=== PATIENT | female | born 2000 | race Caucasian/White ===

== ENCOUNTER 2022-10-14 09:02 | Outpatient (OUT) | payer BC, OTHER, SELFPAY ==
--- NOTE | 2022-10-14 09:05 | US_ITS ---
[address] [address] Patient Name: HESHAM TAYLOR MRN: [id number] date: 2000 Sex: F Assigned Patient Location: US Current Patient Location: LAB Accession/Order Number: [id number] Exam Date: 10/14/2022 09:05 Report Date: 10/14/2022 16:53 At the request of: REBECA PACE Procedure: US OB transvaginal EXAMINATION: US OB transvaginal HISTORY: MISSED PERIOD COMPARISON: No relevant comparison available. FINDINGS: Alanis intrauterine gestation Gestational sac: 3.7 cm, 8 weeks 6 days CRL: 3.7 cm, 10 weeks 4 days Yolk sac: 3.7 mm Heart rate: 174 bpm Cervix: Closed, 4.2 cm The uterus is normal, anteverted, anteflexed The ovaries are normal Clinical age: 9 weeks 5 days Clinical RAY: 05/14/2023 Ultrasound age: 10 weeks 4 days Ultrasound RAY: 05/08/2023 IMPRESSION: Viable alanis intrauterine gestation measuring 10 weeks 4 days Electronically authenticated by: STU DE SOUZA Date: 10/14/2022 16:53
== END 2022-10-14 09:03 | disposition home or self-care (01) ==
LOC: US 09:03
PROVIDERS: Visit Provider Obstetrics & Gynecology
DX: O26.91 Pregnancy related conditions, unspecified, first trimester (principal); Z3A.10 10 weeks gestation of pregnancy
CPT/HCPCS: 36415; 76817; 83036; 84443; 85025; 86592; 86762; 86803; 86850; 86900; 86901; 87086; 87340; 87389

== ENCOUNTER 2022-10-14 10:16 | Outpatient (OUT) | payer BC, SELFPAY ==
[2022-10-14 11:08] LABS: Basophils Percent Auto 0.4 % (0.2-2.0); Eosinophils Percent Auto 0.4 % (0.9-7.0); Hematocrit 36.5 % (36.0-48.0); Immature Granulocytes Abs Auto 0.02 10^3/uL (0.00-0.03); Immature Granulocytes Pct Auto 0.2 % (0.0-0.5); Lymphocytes Absolute Auto 1.7 10^3/uL (1.2-3.8); Lymphocytes Percent Auto 20.9 % (20.5-60.0); Mean Corpuscular HGB Conc 32.9 g/dL (29.9-35.2); Mean Corpuscular Hemoglobin 30.1 pg (26.7-34.0); Mean Corpuscular Volume 91.5 fL (81.0-99.0); Mean Platelet Volume 10.4 fL (9.5-13.5); Monocytes Absolute Auto 0.4 10^3/uL (0.3-0.8); Monocytes Percent Auto 5.3 % (1.7-12.0); Neutrophils Absolute Auto 6.1 10^3/uL (1.4-6.5); Neutrophils Percent Auto 72.8 % (43.0-75.0); Platelet Count 242 10^3/uL (150-450); Red Blood Count 3.99 10^6/uL (4.20-5.40); Red Cell Distribution Width 12.9 % (11.0-15.0); White Blood Count 8.3 10^3/uL (4.0-11.0)
[2022-10-14 11:15] LABS: Estimated Average Glucose 77 mg/dL; Glycohemoglobin A1C 4.3 % (4.5-6.2)
[2022-10-14 12:06] LABS: Thyroid Stimulating Hormone 0.743 uIU/mL (0.358-3.740)
[2022-10-14 13:28] LABS: BOX Test Sent Out YES
[2022-10-15 05:07] LABS: HCV Ab Non Reactive (Non Reactive); HIV Ab/p24 Ag Screen Non Reactive (Non Reactive); Rubella Antibodies, IgG 3.01 index (Immune >0.99)
[2022-10-15 06:08] LABS: HBsAg Screen Negative (Negative)
[2022-10-15 10:08] LABS: Rapid Plasma Reagin, Quant Non Reactive (NonRea<1:1)
== END 2022-10-14 10:17 | disposition home or self-care (01) ==
LOC: LAB 10:23
PROVIDERS: Visit Provider Obstetrics & Gynecology
DX: Z34.80 Encounter for supervision of other normal pregnancy, unspecified trimester (principal)
CPT/HCPCS: 36415; 83036; 84443; 85025; 86592; 86762; 86803; 86850; 86900; 86901; 87086; 87340; 87389

== ENCOUNTER 2022-11-09 18:43 | Outpatient (REF) | payer BC, SELFPAY ==
[2022-11-14 17:07] LABS: Age Gdln ACOG Testing Note (.); IGP, rfx Aptima HPV ASCU Note (.)
== END 2022-11-09 18:44 | disposition home or self-care (01) ==
LOC: LAB 18:43
PROVIDERS: Visit Provider Obstetrics & Gynecology
DX: Z01.419 Encounter for gynecological examination (general) (routine) without abnormal findings (principal)
CPT/HCPCS: G0145

== ENCOUNTER 2022-12-16 15:35 | Outpatient (OUT) | payer BC, SELFPAY ==
[2022-12-22 00:06] LABS: Gestat. Age Based On As provided (.); Maternal Age At EDD 22.8 yr (.); Results Report (.)
[2022-12-22 00:07] LABS: AFP Value 42.7 ng/mL (.); Insulin Dep Diabetes No (.); OSBR Risk 1 IN See interpretation. (.)
== END 2022-12-16 15:36 | disposition home or self-care (01) ==
LOC: LAB 15:39
PROVIDERS: Visit Provider Obstetrics & Gynecology
DX: Z34.92 Encounter for supervision of normal pregnancy, unspecified, second trimester (principal)
CPT/HCPCS: 36415; 82105

== ENCOUNTER 2022-12-30 07:45 | Outpatient (OUT) | payer BC, SELFPAY ==
--- NOTE | 2022-12-30 07:52 | US_ITS ---
[address] [address] Patient Name: HESHAM TAYLOR MRN: [id number] date: 2000 Sex: F Assigned Patient Location: US Current Patient Location: US Accession/Order Number: [id number] Exam Date: 12/30/2022 07:55 Report Date: 12/30/2022 17:41 At the request of: LORETTA ROMAN Procedure: US OB anatomy EXAMINATION: US OB anatomy, US OB transvaginal HISTORY: Second Trimester Z34.92 COMPARISON: No relevant comparison available. TECHNIQUE: Transabdominal sonographic examination was performed for obstetrical and evaluation. FINDINGS: Number: 1 Heart Rate: 158.8 bpm H.B. /min Amniotic Fluid Volume: Subjectively normal position: Cephalic presentation, longitudinal lie Placental Location: POSTERIOR , grade 0. The placenta covers the internal os Cervix Length: 4.8 cm , closed Normal anatomy: Lateral ventricles, cerebellum, posterior fossa, orbits, four-chamber heart, RVOT, diaphragm, stomach, kidneys, abdominal cord insertion, bladder, umbilical arteries, three-vessel cord, spine, extremities Nonvisualization: Nose, lips, LVOT BIOMETRY: BPD: 4.4 cm 19 weeks 3 days , less than 3% HC: 18.1 cm 20 weeks 4 days, 7% AC: 17.4 cm 22 weeks 3 days, 69% FL: 3.6 cm 21 weeks 2 days, 30% EFW:438.5 grams; 15 ounces, 47% FL/AC: 20.4 FL/BPD: 80.4 HC/AC: 1.0 GESTATIONAL AGE: Age by EDC: 21 weeks 4 days RAY by EDC: 05/08/2023 Age by current US: 21 weeks 0 days RAY by current US: 05/12/2023 US/US OB anatomy IMPRESSION: Complete placenta previa Nonvisualization of the nose, lips, LVOT BPD less than 3rd percentile *Reference: [facility] Practice Guideline for the performance of Obstetric Ultrasound Examinations, January 15, 2007. Electronically authenticated by: STU DE SOUZA Date: 12/30/2022 17:41
--- NOTE | 2022-12-30 07:52 | US_ITS ---
[address] [address] Patient Name: HESHAM TAYLOR MRN: [id number] date: 2000 Sex: F Assigned Patient Location: US Current Patient Location: US Accession/Order Number: [id number] Exam Date: 12/30/2022 07:55 Report Date: 12/30/2022 17:41 At the request of: LORETTA ROMAN Procedure: US OB transvaginal EXAMINATION: US OB anatomy, US OB transvaginal HISTORY: Second Trimester Z34.92 COMPARISON: No relevant comparison available. TECHNIQUE: Transabdominal sonographic examination was performed for obstetrical and evaluation. FINDINGS: Number: 1 Heart Rate: 158.8 bpm H.B. /min Amniotic Fluid Volume: Subjectively normal position: Cephalic presentation, longitudinal lie Placental Location: POSTERIOR , grade 0. The placenta covers the internal os Cervix Length: 4.8 cm , closed Normal anatomy: Lateral ventricles, cerebellum, posterior fossa, orbits, four-chamber heart, RVOT, diaphragm, stomach, kidneys, abdominal cord insertion, bladder, umbilical arteries, three-vessel cord, spine, extremities Nonvisualization: Nose, lips, LVOT BIOMETRY: BPD: 4.4 cm 19 weeks 3 days , less than 3% HC: 18.1 cm 20 weeks 4 days, 7% AC: 17.4 cm 22 weeks 3 days, 69% FL: 3.6 cm 21 weeks 2 days, 30% EFW:438.5 grams; 15 ounces, 47% FL/AC: 20.4 FL/BPD: 80.4 HC/AC: 1.0 GESTATIONAL AGE: Age by EDC: 21 weeks 4 days RAY by EDC: 05/08/2023 Age by current US: 21 weeks 0 days RAY by current US: 05/12/2023 US/US OB transvaginal IMPRESSION: Complete placenta previa Nonvisualization of the nose, lips, LVOT BPD less than 3rd percentile *Reference: [facility] Practice Guideline for the performance of Obstetric Ultrasound Examinations, January 15, 2007. Electronically authenticated by: STU DE SOUZA Date: 12/30/2022 17:41
== END 2022-12-30 07:46 | disposition home or self-care (01) ==
LOC: US 07:47
PROVIDERS: Visit Provider Physician Assistant
DX: O44.02 Complete placenta previa NOS or without hemorrhage, second trimester (principal); Z3A.21 21 weeks gestation of pregnancy
CPT/HCPCS: 76805; 76817

== ENCOUNTER 2023-01-28 10:48 | Outpatient (OUT) | payer BC, SELFPAY ==
[2023-01-28 12:20] LABS: Basophils Percent Auto 0.3 % (0.2-2.0); Eosinophils Percent Auto 0.3 % (0.9-7.0); Hematocrit 32.7 % (36.0-48.0); Hemoglobin 10.6 g/dL (12.0-16.0); Immature Granulocytes Abs Auto 0.04 10^3/uL (0.00-0.03); Immature Granulocytes Pct Auto 0.4 % (0.0-0.5); Lymphocytes Absolute Auto 1.6 10^3/uL (1.2-3.8); Mean Corpuscular HGB Conc 32.4 g/dL (29.9-35.2); Mean Corpuscular Hemoglobin 30.5 pg (26.7-34.0); Mean Corpuscular Volume 94.2 fL (81.0-99.0); Mean Platelet Volume 10.5 fL (9.5-13.5); Monocytes Absolute Auto 0.5 10^3/uL (0.3-0.8); Platelet Count 201 10^3/uL (150-450); Red Blood Count 3.47 10^6/uL (4.20-5.40); Red Cell Distribution Width 13.6 % (11.0-15.0); White Blood Count 9.1 10^3/uL (4.0-11.0)
[2023-01-28 13:30] LABS: Glucose 1 Hour 131 mg/dL
== END 2023-01-28 10:49 | disposition home or self-care (01) ==
PROVIDERS: Visit Provider Obstetrics & Gynecology
DX: Z34.92 Encounter for supervision of normal pregnancy, unspecified, second trimester (principal)
CPT/HCPCS: 36415; 82950; 85025

== ENCOUNTER 2023-04-12 20:36 | Outpatient (REF) | payer BC, SELFPAY | END 2023-04-12 20:37 | disposition home or self-care (01) | LOC: LAB 20:36 | PROVIDERS: Visit Provider Physician Assistant | DX: Z34.93 Encounter for supervision of normal pregnancy, unspecified, third trimester (principal) | CPT/HCPCS: 87081 ==

== ENCOUNTER 2023-04-19 06:59 | Outpatient (OUT) | payer BC, SELFPAY ==
--- OUTSIDE RECORDS SUMMARY | 2023-04-19 07:02 | XMS_ITS | CCD ---
Author Name Unknown Address [address] [place] [address] Organization [facility] Care Team Providers Care Orthopedic Surgeon Name Role Phone DR REBECA PACE Admitting Unavailable DR REBECA PACE Attending Unavailable MISC, DOCTOR Primary Care Unavailable DR REBECA PACE Consulting Unavailable Unavailable Primary Care Provider UnavailLORETTA Fabian Attending Unavailable REBECA PACE Attending Unavailable LORETTA ROMAN Attending Unavailable Medications Current Medications Medication Drug Class(es) Dates Sig (Normalized) Sig (Original) blood-glucose meter misc (1 source) Start: 04-12-2023 blood-glucose meter misc Check blood sugar 4-5 times daily, fasting and 1 hour after meals. Use as directed. Dispense per insurance preference. 1 each 0 04/12/2023 Active ferrous sulfate 134 mg oral tablet (1 source) ferrous sulfate (HIGH POTENCY IRON) 27 mg iron tablet Take by mouth. 0 Active [id number] 3 (DUET DHA WITH OMEGA-3) 25 mg iron-1 mg -400 mg combo pack (1 source) [id number] m3 (DUET DHA WITH OMEGA-3) 25 mg iron-1 mg -400 mg combo pack Take by mouth. 0 Active [id number]-zh 3 25 mg iron-1 mg -400 mg combo pack (1 source) [id number]-f m3 25 mg iron-1 mg -400 mg combo pack Take by mouth. 0 Active Problems Active Problems Problem Classification Problem Date Documented Date Episodic/Chronic Immunizations and screening for infectious disease (1 source) Encounter for screening for human papillomavirus (HPV); Translations: [ENC SCREENING HUMAN PAPILLOMAVIRUS] Onset: 02-27-2022 Episodic Other complications of (1 source) Maternal obesity complicating , childbirth and the puerperium, antepartum; Translations: [Obesity complicating , second trimester] Onset: 01-27-2023 01-27-2023 Chronic Other screening for suspected conditions (not mental disorders or infectious disease) (4 sources) Encounter for screening for malignant neoplasm of cervix; Translations: [ENC SCREENING MALIG NEOPLASM CERV] Onset: 02-24-2022 Episodic Polyhydramnios and other problems of amniotic cavity (1 source) Polyhydramnios; Translations: [Polyhydramnios, unspecified trimester, not applicable or unspecified] 04-12-2023 Episodic Residual codes; unclassified (1 source) Gestation period, 35 weeks; Translations: [35 weeks gestation of ] 04-12-2023 Episodic Umbilical cord complication (2 sources) Velamentous insertion of umbilical cord; Translations: [Velamentous insertion of umbilical cord, second trimester] Onset: 01-27-2023 Resolved: 04-12-2023 01-27-2023 Episodic Past or Other Problems Problem Classification Problem Date Documented Da te Episodic/Chronic Hemorrhage during ; abruptio placenta; placenta previa (1 source) Placenta previa; Translations: [Complete placenta previa NOS or without hemorrhage, second trimester] Onset: 01-27-2023 Resolved: 04-12-2023 04-12-2023 Episodic Mood disorders (1 source) Mood disorders Onset: 01-31-2021 01-31-2021 Results Test Name Value Interpretation Reference Range Facil ity PAP ACOG PANEL 2: 21 to 29on 03-04-2022 . . Normal [facility] Comment on above: Performed By: #### [id number] #### [facility] [address] [address] [address] Anthony Newton Age Gdln ACOG Testing 21-29 Normal [facility] Comment on above: Performed By: #### [id number] #### [facility] [address] [address] [address] Anthony Newton DIAGNOSIS: Comment [facility] Comment on above: Result Comment: NEGA TIVE FOR INTRAEPITHELIAL LESION OR MALIGNANCY. THIS SPECIMEN WAS RESCREENED PART OF OUR PRODUCTION WEIGHER PROGRAM. Performed By: #### [id number] #### [facility] [address] [address] [address] Anthony Newton Methodology: Comment Normal [facility] Comment on above: Result Comment: This liquid based ThinPrep(R) pap test was screened with the use of an image guided system. Performed By: #### [id number] #### [facility] [address] [address] [address] Anthony Newton Note: Comment Normal [facility] Comment on above: Result Comment: The Pap smear is a screening test designed to aid in the detection of premalignant and malignant conditions of the uterine cervix. It is not a diagnostic procedure and should not be used as the sole means of detecting cervical cancer. Both false-positive and false-negative reports do occur. . Performed By: #### [id number] #### [facility] [address] [address] [address] Anthony Newton Performed by: Comment Normal [facility] Comment on above: Result Comment: Lana Connell Hide Spreader Performed By: #### [id number] #### [facility] [address] [address] [address] Anthony Newton QC reviewed by: Comment Normal [facility] Comment on above: Result Comment: Shae Maria, Hide Spreader (ASCP) Performed By: #### [id number] #### [facility] [address] [address] [address] Anthony Newton Reflex Criteria: Comment Normal [facility] Comment on above: Result Comment: The HPV DNA reflex criteria were not met with this specimen result therefore, no HPV testing was performed. . Performed By: #### [id number] #### [facility] [address] [address] [address] Anthony Newton Specimen adequacy: Comment Normal [facility] Comment on above: Result Comment: Sati sfactory for evaluation. Endocervical and/or squamous metaplastic cells (endocervical component) are present. Performed By: #### 4 [id number] #### [facility] [address] [address] [address] Anthony Newton Lab - Toxicology Resultson 0 10-05-2018 Lab - Toxicology Results [id number] [facility] Outside Recordson 10-04-2018 Outside Records [id number] [facility] Triage Industrialon 10-05-19 Drug Screen Complete Collected [facility] Comment on above: Performed By: #### 1 [id number] #### [facility] (DEFAULT) [address] [place], [place] [id number] ED Clinical Summaryon 2018 ED Clinical Summary [facility] ? Urgent Care [address] [place] [id number] Clinical Summary PERSON INFORMATION Name: HESHAM NEELY PAYAL Age: 18 Years Sex: FEMALE : 00 MRN: Acct#: Visit Reason: Medical screening exam; PHYSICAL PRE EMPLOYMENT/ [employer] Arrival: 10/03/18 16:20:33 Discharge: 10/03/18 16:50:00 LOS: 000 00:30 Check In: 10/03/18 16:20:33 Checkout: 10/03/18 16:50:00 Address: [address] [place] [id number] PCP: PROVIDER INFORMATION Provider Role Assigned Unassigned Holden Gaitan PA-C ED PA 10/03/18 16:37:26 Sage RN, Larry ED Nurse 10/03/18 16:38:28 VITALS INFORMATION Vital Sign Triage Latest Temperature Tympanic Temperature Temporal Artery Pulse Rate 66 bpm 66 bpm O2 Sat 97 % 97 % Respiratory Rate 18 br/min 18 br/min Blood Pressure 110 mmHg/70 mmHg 110 mmHg/70 mmHg MEDICAL INFORMATION Medications Given: Allergy Information: No Known Medication Allergies PHYSICIAN DOCUMENTATION DISCHARGE INFORMATION: Discharge Disposition: Home Discharge Location: Home PATIENT EDUCATION INFORMATION Instructions: Follow-Up: DIAGNOSIS: Patient Understands: Comment: [facility] ED Patient Summaryon 019 ED Patient Summary [facility] ? Urgent Care [address] [place] [address] PATIENT DISCHARGE INSTRUCTIONS Patient Information Name: FLORINDA HESHAM MOE Age: 18 Years Date of : 00 Reason For Visit: Medical screening exam; PHYSICAL PRE EMPLOYMENT/ [employer] Arrival Time: 10/03/18 16:20:33 Primary Care Physician: Attending Physician: Paulino Padilla Comment: Patient Education Medication Information: The exam and treatment you received today in the [facility] Emergency Department were for an urgent problem and are not intended as complete care. It is important for you to follow up with a doctor, nurse practitioner, or physician?s assistant brand manager for ongoing care. If your symptoms become worse or you do not improve as expected and you are unable to reach your usual health care provider, you should return to the Emergency Department, we are available 24 hours a day. For those patients who have received Radiology results, the interpretation of your X-ray as given to you by our Emergency Department physician is only a preliminary report. The Radiologist will review your films and if there is a change in the diagnosis you will be notified by phone. Please make sure you have provided a working phone number so we can reach you if necessary. In the event that you had a lab culture while you were a patient in the Emergency Department, you will be notified by phone if there is a need to change your antibiotic. Please make sure you have provided a working phone number so we can reach you if necessary. [facility] Emergency Department has provided you with a complete list of medications post discharge. Please inform your jewel diameter gauger/provider of your visit and for further instruction on these medications. Any specific questions regarding your chronic medications and dosages should be discussed with your primary care physician(s) and/or pharmacist. Visit Information Visit Diagnosis: Diagnoses This Visit Medical screening exam ([id number]) If you received any narcotics, sedation, or any other medication that causes drowsiness for the next 24 hours, unless otherwise directed: ? Do not drive a car. ? Do not operate machinery such as power tools, lawn mowers, drills, sewing machines, or stoves ? Avoid alcoholic beverages and drugs for allergies, nerves, or sleep ? Do not make important personal or business decisions or sign any legal documents Reason for Visit: [place] physical Allergies: Substance Reaction Symptoms Type Comments No Known Medication Allergies Drug Vital Signs: Vitals and Measurements this Visit (last charted value for your 10/03/2018 visit) Vital Signs This Visit Temperature Temporal: 36.4 DegC Peripheral Pulse Rate: 66 bpm Respiratory Rate: 18 br/min Systolic Blood Pressure: 110 mmHg Diastolic Blood Pressure: 70 mmHg SpO2: 97 % Problems List: Problem Onset Comments No Problems found Major Tests and Procedures: The following procedures and tests were performed during your ED visit. Laboratory Radiology Cardiology Viruses or Bacteria What?s got you sick? Antibiotics only treat bacterial infections. Viral illnesses cannot be treated with antibiotics. When an antibiotic is not prescribed, ask your healthcare professional for tips on how to relieve symptoms and feel better. Usual Cause Illness Viruses Bacteria Antibiotic Needed Cold/Runny Nose NO Bronchitis/Chest Cold (in otherwise healthy children and adults) NO Whooping Cough Yes Flu NO Strep Throat Yes Sore Throat (except strep) NO Fluid in the middle ear (otitis media with effusion) NO Urinary Tract Infection Yes Antibiotics Aren?t Always the Answer www.cdc.gov/getsmart GET SMART Know When Antibiotics Work U.S. Department of Health and Human Services Centers for Disease Control and Prevention December 2013 [facility] Vital Signs Date Time Vital Sign Value Performing Clinician Faci jennifer 04-12-2023 15:05-0500 Body height 162.6 cm Daniella [facility]ina [facility] 04-12-2023 15:05-0500 Body mass index (BMI) [Ratio] 37.93 kg/m2 Daniella Reina MD Work Phone: [facility] 04-12-2023 15:05-0500 Body weight 100.25 kg Daniella Reina MD Work Phone: [facility] 04-12-2023 15:05-0500 Diastolic blood pressure 76 mm[Hg] Daniella [facility] 04-12-2023 15:05-0500 Heart rate 96 /min Daniella Reina MD Work Phone: [facility] 04-12-2023 15:05-0500 Systolic blood pressure 115 mm[Hg] Daniella Reina MD Work Phone: [facility] Encounters Encounter Date Encounter Type Care Provider Facility Start: 04-12-2023 End: 04-12-2023 Office outpatient visit 25 minutes Daniella Reina MD Work Phone: [facility] Comment on above: 35 weeks gestation o f (Primary Dx); Polyhydramnios affecting Start: 04-12-2023 End: 04-12-2023 ambulatory LORETTA ABEL Not Available Start: 03-30-2023 End: 03-30-2023 ambulatory LORETTA ROMAN Not Available Start: 03-16-2023 End: 03-16-2023 ambulatory REBECA PACE Not Available Start: 02-24-2022 End: 02-24-[address] REBECA PACE Facility: Procedures Date Procedure Procedure Detail Performing Clinician Start: 11-09-2022 Microscopic observat ion [Identifier] in Cervix by Cyto stain Daniella Reina MD Work Phone: Start: 01-31-2021 Adult depression scr eening assessment Daniella Reina MD Work Phone: Plan of Treatment Date Care Activity Detail Author Start: 12-19-2030 DTaP,Tdap and Td Vaccines (6 - Tdap) DTaP,Tdap and Td Vaccines (6 - Tdap) [facility] Start: 11-09-2025 Screening for malign ant neoplasm of cervix Pap Smear [facility] Start: 04-12-2024 Adult BMI Screening Adult BMI Screen ing [facility] Start: 04-12-2024 Tobacco Screening Tobacco Screening [facility] Start: 11-10-2023 Screening for Chlamy annabella trachomatis Chlamydia Screening [facility] Start: 12-16-2022 COVID-19 Vaccine ( season) COVID-19 Vaccine ( season) [facility] Start: 12-16-2022 Influenza vaccination Influenza Vacc ine [facility] Start: 01-31-2022 Depression Screening Depression Scre ening [facility] Start: 2018 Adult BMI Follow Up Plan Adult BMI Follow Up Plan [facility] Immunizations Immunization Date Immunization Notes Care Provider Fa cility 02-01-2021 influenza virus vacc ine, unspecified formulation Daniella Reina MD Work Phone: [facility] 12-19-2020 diphtheria, tetanus toxoids and pertussis vaccine Daniella Reina MD Work Phone: [facility] 10-29-2019 hepatitis B vaccine, pediatric or pediatric/adolescent dosage Daniella Reina MD Work Phone: [facility] 05-14-2019 hepatitis B vaccine, adult dosage Daniella Reina MD Work Phone: [facility] 04-11-2019 hepatitis B vaccine, pediatric or pediatric/adolescent dosage Daniella Reina MD Work Phone: [facility] 04-11-2019 measles, mumps, rube lla, and varicella virus vaccine Daniella Reina MD Work Phone: [facility] 11-09-2017 meningococcal oligosaccharide (groups A, C, Y and W-135) diphtheria toxoid conjugate vaccine (MCV4O) Daniella Reina MD Work Phone: [facility] 12-08-2004 diphtheria, tetanus toxoids and acellular pertussis vaccine Daniella Reina MD Work Phone: [facility] 12-08-2004 measles, mumps and rubella virus vaccine Daniella Reina MD Work Phone: [facility] 12-08-2004 poliovirus vaccine, inactivated Daniella Reina MD Work Phone: [facility] 09-28-2001 measles, mumps and rubella virus vaccine Daniella Reina MD Work Phone: [facility] Work Phone: 03-23-2001 diphtheria, tetanus toxoids and acellular pertussis vaccine, unspecified formulation Daniella Reina MD Work Phone: [facility] 03-23-2001 haemophilus influenz ae type b conjugate and Hepatitis B vaccine Daniella Reina MD Work Phone: [facility] 03-23-2001 poliovirus vaccine, inactivated Daniella Reina MD Work Phone: [facility] 01-12-2001 diphtheria, tetanus toxoids and acellular pertussis vaccine, unspecified formulation Daniella Reina MD Work Phone: [facility] 01-12-2001 haemophilus influenz ae type b vaccine, HbOC conjugate Daniella Reina MD Work Phone: [facility] 01-12-2001 poliovirus vaccine, inactivated Daniella Reina MD Work Phone: [facility] 2000 diphtheria, tetanus toxoids and acellular pertussis vaccine, unspecified formulation Daniella Reina MD Work Phone: [facility] 2000 haemophilus influenz ae type b conjugate and Hepatitis B vaccine Daniella Reina MD Work Phone: [facility] 2000 poliovirus vaccine, inactivated Daniella Reina MD Work Phone: [facility] 2000 hepatitis B vaccine, pediatric or pediatric/adolescent dosage Daniella Reina MD Work Phone: [facility] [employer] NEGATED: Highlighted row has not occurred!04-11-2019 influenza, injectable, quadrivalent, preservative free Daniella Reina MD Work Phone: [facility] Comment on above: Deferred: Patient de cision Payers Date Payer Category Payer Unknown SVITLANA REILLY SS (PPO) [id number] 2022-Present [phone] [address] [place] [address] [id number] 2022 Unknown [id number] 2000 Unknown [id number] 2000 Unknown [id number] 2000 Unknown [id number] 2000 Unknown [id number] 1959 Unknown [id number] Social History Date Type Detail Facility [facility]: [facility] Start: 04-12-2023 Tobacco use and exposure Smokeless tobacco non-user [facility] Start: 04-12-2023 Alcohol intake Lifetime non-d marlyn (finding) [facility] Start: 01-31-2021 End: 04-12-2023 History of Social function [facility] Start: 01-31-2021 End: 04-12-2023 Social connection and isolation panel [facility] Do you belong to any clubs or organizations such as catholic groups, unions, fraternal or athletic groups, or school groups? No [facility] Are you now , , , , never or living with a partner? Living with partner [facility] How often to you hav e a drink containing alcohol? 2-4 times a month [facility] How many standard drinks containing alcohol do you have on a typical day? 3 or 4 [facility] How often do you hav e 6 or more drinks on 1 occasion? Less than monthly [facility] How hard is it for y ou to pay for the very basics like food, housing, medical care, and heating Not very hard [facility] Adolescent depressio n screening assessment 6 [facility] Do you feel stress - tense, restless, nervous, or anxious, or unable to sleep at night because your mind is troubled all the time - these days [OSQ] Very much [facility] Start: 01-31-2021 Education 21 [facility] Start: 08-21-2022 [facility] Start: 2000 Sex Assigned At Female P [facility] Start: 01-24-2023 Gender identity Identifies as female gender (finding) [facility] Start: 01-24-2023 Sexual orientation Heterosexual (sara sanchez) [facility] NEGATED: Highlighted rowStart: NINF History of tobacco use Passive smoker [facility] Medical Equipment Procedure Code Equipment Code Equipment Origin al Text Equipment Identifier Dates Check blood suga r 4-5 times daily, fasting and 1 hour after meals. Use as directed. Dispense per insurance preference. [id number] Start: 04-12-2023 1 strip by miscellaneous route in the morning and 1 strip at noon and 1 strip in the evening and 1 strip before bedtime. Check blood sugar 4-5 times daily, fasting and 1 hour after meals. Use as directed. Dispense per insurance preference.. [id number] Start: 04-12-2023 History of Present illness Narrative 04-12-2023 Daphne Gerard RN - 04/12/2023 3:15 PM Cecilio Reina MD - 04/12/2023 3:15 PM EST Note Date & Type Note Facility 04-12-2023 History of Present illness Narrative Headache/epigastric pain/blurry vision/swelling? NO Cramping/contractions? NO Abnormal vaginal discharge? NO Spotting or vaginal bleeding? NO Loss of fluid like your water may have broken? NO Recent ER visits or hospitalizations? NO Any concerns that you would like me to mention to the provider today? NO REASON FOR OFFICE VISIT: Follow up placenta previa/low-lying placenta HISTORY OF PRESENT ILLNESS: Hesham Avalos is a pleasant 22 y.o. at 35w3d due on Estimated Date of Delivery: 05/14/23 . has been complicated by: Polyhydramnios, new finding Velamentous cord insertion Placenta previa, resolved Concern for vasa previa, now ruled out Obesity, BMI 38 Currently the patient has no complaints. The patient denies headaches, vision changes, nausea, vomiting, right upper quadrant/epigastric pain, SOB or chest pain. She denies contractions, vaginal. She reports good movement. GCT at 26wks 131 (reviewed on my chart/patient phone) Aneuploidy screening: low risk cell free DNA for chromosome 13,18,21 and sex chromosomes Patient Active Problem List Diagnosis Velamentous insertion of umbilical cord in second trimester Obesity affecting in second trimester OB History OB History Para Term AB Living 2 1 1 0 0 1 SAB IAB Ectopic Multiple Live Births 0 0 0 1 # Outcome Date GA Lbr Daniel/2nd Weight Sex Delivery Anes PTL Lv 2 Current 1 Term 12/17/20 39w1d 3.742 kg M Vag-Spont N ISABELLA Past Medical History: Diagnosis Date Low-lying placenta hemorrhage ALLERGIES: Allergies Allergen Reactions No Known Drug Allergies CURRENT MEDICATIONS: Current Outpatient Medications: [id number] (DUET DHA WITH OMEGA-3) 25 mg iron-1 mg -400 mg combo pack, Take by mouth., Disp: , Rfl: blood sugar diagnostic strip, Check blood sugar 4-5 times daily, fasting and 1 hour after meals. Use as directed. Dispense per insurance preference., Disp: 200 strip, Rfl: 6 blood-glucose meter misc, Check blood sugar 4-5 times daily, fasting and 1 hour after meals. Use as directed. Dispense per insurance preference., Disp: 1 each, Rfl: 0 ferrous sulfate (HIGH POTENCY IRON) 27 mg iron tablet, Take by mouth. (Patient not taking: Reported on 04/12/2023), Disp: , Rfl: lancets 31 gauge misc, 1 strip by miscellaneous route in the morning and 1 strip at noon and 1 strip in the evening and 1 strip before bedtime. Check blood sugar 4-5 times daily, fasting and 1 hour after meals. Use as directed. Dispense per insurance preference.., Disp: 100 each, Rfl: 1 [id number]-vm2 25 mg iron-1 mg -400 mg combo pack, Take by mouth., Disp: , Rfl: REVIEW OF SYSTEMS: Head and Neck: Negative for any dizziness and headaches. Cardiovascular and Respiratory System: Denies any chest pain, shortness of breath, and coughing. Abdominal and System: Denies any abdominal pain, nausea, vomiting, vaginal bleeding, and vaginal discharge REVIEW OF ULTRASOUND. Abstract on 01/26/2023 Component Date Value Ref Range Status Syphilis 10/14/2022 negative Final Abo/Rh(D) 10/14/2022 A Positive Final Antibody Screen 10/14/2022 negative Final Chlamydia Dna(Pcr) 11/09/2022 negative Final Gonorrhoeae Dna(Pcr) 11/09/2022 negative Final HIV 1&2 AB/AG 10/14/2022 negative Final Hepatitis B Surface Antigen 10/14/2022 negative Final Rubella immune IgG 10/14/2022 immune Final HIV 1&2 AB/AG 10/14/2022 non reactive Final Pertinent Ultrasound findings are see report. PHYSICAL EXAMINATION: BP 115/76 Pulse 96 Ht 162.6 cm (5' 4 ) Wt 100.2 kg (221 lb) LMP 08/07/2022 BMI 37.93 kg/m . Well-appearing, no acute distress Normal gait well oriented in time place and person. Respirations not labored, speaking comfortably in complete sentences Gravid abdomen OVERALL ASSESMENT -Hesham Avalos is a pleasant 22 y.o. at 35w3d -Polyhydramnios, new finding -Velamentous cord insertion -Placenta previa, resolved -Concern for vasa previa, now ruled out -Obesity, BMI 38 Counseling Placenta previa, resolved Concern for vasa previa, now ruled out We reviewed the placenta previa has now resolved and placental edge is over 3 cm from internal cervical os. The risk for hemorrhage is that of any at this time. Attempted vaginal delivery is reasonable. Polyhydramnios, mild, new finding Abdominal circumference at 98% Concern for the development of gestational diabetes Polyhydramnios was noted on sonographic assessment today. The degree of polyhydramnios is frequently categorized as mild, moderate, or severe, based on an ZEB of 24.0-29.9 cm, 30.0-34.9 cm, and >=35 cm, or a DVP of 8-11 cm, 12-15 cm, or >=16 cm, respectively. Using these definitions, she has mild polyhydramnios noted today and that accounts for approximately 65-70% of cases. The identification of polyhydramnios should prompt a search for an underlying etiology. The 2 most common causes of polyhydramnios are maternal diabetes mellitus and anomalies. Other less likely causes include chromosomal or genetic abnormalities and/or anatomic abnormalities that inhibit normal swallowing. She has had low risk cell free DNA. Given that patient has risk factors for gestational diabetes including failed glucose challenge test in prior and obesity, I am concerned that the most likely etiology of polyhydramnios is the development of gestational diabetes. Her last glucose challenge test was at 26 weeks on 01/28/2023 at 131. In addition abdominal circumference is measuring at 98th percentile, increasing suspicion for underlying gestational diabetes. Following discussion regarding repeat glucose challenge test versus 4 times daily fingerstick monitoring for week, patient opted for fingerstick monitoring. Supplies were ordered and logs provided. Patient will send in logs in 1 week. In addition, we discussed the increased risk for complications including premature labor, malpresentation, stillbirth, and hemorrhage. Even in the absence of diabetes, idiopathic polyhydramnios is associated with macrosomia in approximately 15-30% of cases, and affected patients are significantly more likely to undergo delivery. Progression of polyhydramnios is suggestive of an underlying structural or genetic etiology. Reports associating idiopathic polyhydramnios with mortality have been inconsistent and there are no data to suggest that surveillance improves outcomes and surveillance is not required for the sole indication of mild idiopathic polyhydramnios. Women with severe polyhydramnios should be delivered at a tertiary center due to the significant possibility that anomalies may be present. Summary of Recommendations: Patient is dated by an L=10 week ultrasound, RAY 05/14/2023. She is certain of her LMP, LMP is within 6 days of 10 week ultrasound, thus per ACOG RAY is based on LMP. Resolution of placenta previa, low-lying placenta Glucose logs and supplies provided for 4 times daily monitoring of fingersticks; concern for the development of gestational diabetes Repeat growth ultrasound in 3 weeks Anticipate vaginal delivery at local hospital with primary OB Delivery at term, >39 weeks gestation Has follow up with MFM via video visit in 2 weeks to review logs DISPOSITION: At this point the patient is in complete care of her integrated program teacher. Patient does have ultrasound and office visit scheduled with us. Thank you for allowing me to participate in the care of Hesham Avalos. If there any questions please do not hesitate to contact us. Daniella Reina MD Maternal- Medicine [facility] [address] [place] [address] [facility], the CDC, and other organizations representing maternal and public health professionals recommend that , , and lactating people and those considering receive the COVID-19 vaccination. Vaccination is the best method to reduce maternal and complications of SARS-CoV-2 infection. This document was created with [employer] technology. Though I make every effort to review the dictation as it is transcribed, on occasion the spoken word can be misinterpreted by the technology leading to inappropriate words, phrases, or sentences. This note is addressed to the requesting provider as a consultation for clinical guidance. Specific medical abbreviations are occasionally used and those are generally approved by the [place]?Board of?Obstetrics and?Gynecology?as well as?[employer] abbreviations. The above plan of care was based solely on the diagnoses for which a consultation was requested. ?More frequent testing may be indicated based on her other medical/obstetrical conditions. The management of other or medical conditions is beyond the scope of requested consultation and will continue to be followed by the primary integrated program teacher or primary care provider. Note to patient: The Cures Act makes medical notes like these available to patients in the interest of transparency. However, be advised this is a medical document. It is intended as peer to peer communication. It is written in medical language and may contain abbreviations or verbiage that are unfamiliar. It may appear blunt or direct. Medical documents are intended to carry relevant information, facts as evident, and the clinical opinion of the practitioner. documented in this encounter [facility] Evaluation note Note Date & Type Note Facility Evaluation note Diagnosis 35 weeks gestation of - Primary Polyhydramnios affecting documented in this encounter [facility] Instructions Note Date & Type Note Facility Instructions Not on filedocumented in this en counter [facility] Summary Purpose Family History No Family History Records FoundNo Family History Records FoundNo Family History Records Found Advance Directives No Advanced Directives Records FoundNo Advanced Directives Records FoundNo Advanced Directives Records Found Reason for Referral Specialty Diagnoses / Procedures Referred By Contac t Referred To Contact Daniella Reina MD [address] [place] [id number] Referral ID Status Reason Start Date Expiration Date V isits Requested Visits Authorized [id number] Pending Review 1 1 Referral ID Status Reason Start Date Expiration Date V isits Requested Visits Authorized [id number] Pending Review 1 1 Additional Source Comments INFORMATION SOURCE (unrecogn ized section and content) DATE CREATED AUTHOR 10/05/2018 [facility] DATE CREATED AUTHOR AUTHOR'S ORGANIZ ATION 04/13/2022 [facility] DATE CREATED AUTHOR AUTHOR'S ORGANIZ ATION 04/14/2023 [facility] EP[facility] Reason for Visit (unrecogniz ed section and content) Reason Comments POSTERIOR LOW LYING PLACENTA Resolved Polyhydramnios FOR RECORDS PERTAINING TO PATIENTS WHO ARE OR HAVE BEEN ENROLLED IN A CHEMICAL DEPENDENCY/SUBSTANCEABUSE PROGRAM, SOME INFORMATION MAY BE OMITTED. This clinical summary was aggregated from multiple sources. Caution should be exercised in using it in the provision of clinical care. This summary normalizes information from multiple sources, and as a consequence, information in this document may materially change the coding, format and clinical context of patient data. In addition, data may be omitted in some cases. CLINICAL DECISIONS SHOULD BE BASED ON THE PRIMARY CLINICAL RECORDS. [facility]. provides no warranty or guarantee of the accuracy or completeness of information in this document.
--- NOTE | 2023-04-19 08:56 | US_ITS ---
[address] [address] Patient Name: HESHAM TAYLOR MRN: [id number] date: 2000 Sex: F Assigned Patient Location: [facility] Current Patient Location: [facility] Accession/Order Number: [id number] Exam Date: 04/19/2023 09:00 Report Date: 04/19/2023 09:34 At the request of: REBECA PACE Procedure: US OB BPP w non-stress EXAMINATION: US OB BPP w non-stress HISTORY: lga COMPARISON: No relevant comparison available. TECHNIQUE: Ultrasound biophysical profile was performed in the radiology department. FINDINGS: BREATHING MOVEMENTS: 2.0 GROSS BODY MOVEMENTS: 2.0 TONE: 2.0 QUALITATIVE AMNIOTIC FLUID VOLUME: 2.0 PRESENTATION: CEPHALIC HEART RATE: 150.8 bpm H.B./min AMNIOTIC FLUID VOLUME: 16.0 cm cm GESTATIONAL AGE: 37 weeks 2 days CONCLUSION: Total biophysical profile score: 8.0 Electronically authenticated by: STU DE SOUZA Date: 04/19/2023 09:34
[2023-04-19 09:21] VITALS: BP 121/81; PULSE 78
== END 2023-04-19 10:14 | disposition home or self-care (01) ==
LOC: US 07:00 → FBC 08:46
PROVIDERS: Visit Provider Physician Assistant
DX: Z34.93 Encounter for supervision of normal pregnancy, unspecified, third trimester (principal); Z3A.37 37 weeks gestation of pregnancy
CPT/HCPCS: 76818

== ENCOUNTER 2023-04-22 07:35 | Outpatient (OUT) | payer BC, SELFPAY ==
--- OUTSIDE RECORDS SUMMARY | 2023-04-22 07:39 | XMS_ITS | CCD ---
Author Name Unknown Address [address] [place] [address] Organization [facility] Care Team Providers Care Copper Roller Handler Printing Name Role Phone DR REBECA PACE Admitting Unavailable DR REBECA PACE Attending Unavailable MISC, DR HENDERSON Primary Care Unavailable DR REBECA PACE Consulting Unavailable Unavailable Primary Care Provider UnavailLORETTA Fabian Attending Unavailable LORETTA ROMAN Attending Unavailable REBECA PACE Attending Unavailable LORETTA [...] iron tablet Take by mouth. 0 Active [id number]-oc 3 (DUET DHA WITH OMEGA-3) 25 mg iron-1 mg -400 mg combo pack (1 source) [id number]-fjaqz-o m3 (DUET DHA WITH OMEGA-3) 25 mg iron-1 mg -400 mg combo pack Take by mouth. 0 Active alq460-knal-ldxwm-uo 3 25 mg iron-1 mg -400 mg combo pack (1 source) [id number]-ycdz-rmhgw-q m3 25 mg iron-1 mg -400 mg [...] 21 to 29on 03-04-2022 . . Normal [facility] Comment on above: Performed By: #### [id number] #### [facility] [address] [address] [address] Anthony Newton Age Gdln ACOG Testing 21- Normal [facility] Comment on above: Performed By: #### [id number] #### [facility] [address] [address] [address] Anthony Newton DIAGNOSIS: Comment [facility] Comment on above: Result Comment: NEGA TIVE FOR INTRAEPITHELIAL LESION OR MALIGNANCY. THIS SPECIMEN WAS RESCREENED PART OF OUR CLAY DIGGER PROGRAM. Performed By: #### 4 [id number] #### [facility] [address] [place] [address] Dr. Anthony Newton Methodology: Comment Normal [facility] Comment on above: Result Comment: This liquid based ThinPrep(R) pap test was screened with the use of an image guided system. Performed By: #### 4 [id number] #### [facility] [address] [place] [address] Dr. Anthony Newton Note: Comment Normal [facility] Comment on above: Result Comment: The Pap smear is a screening test designed to aid in the detection of premalignant and malignant conditions of the uterine cervix. It is not a diagnostic procedure and should not be used as the sole means of detecting cervical cancer. Both false-positive and false-negative reports do occur. . Performed By: #### 4 [id number] #### [facility] [address] [place] [address] Dr. Anthony Newton Performed by: Comment Normal [facility] Comment on above: Result Comment: Lana Connell Pivot End Polisher Performed By: #### 4 [id number] #### [facility] [address] [place] [address] Dr. Anthony Newton QC reviewed by: Comment Normal [facility] Comment on above: Result Comment: Shae Maria, Pivot End Polisher (ASCP) Performed By: #### 4 [id number] #### [facility] [address] [place] [address] Dr. Anthony Newton Reflex Criteria: Comment Normal [facility] Comment on above: Result Comment: The HPV DNA reflex criteria were not met with this specimen result therefore, no HPV testing was performed. . Performed By: #### 4 [id number] #### [facility] [address] [place] [address] Dr. Anthony Newton Specimen adequacy: Comment Normal [facility] Comment on above: Result Comment: Sati sfactory for evaluation. Endocervical and/or squamous metaplastic cells (endocervical component) are present. Performed By: #### 4 [id number] #### [facility] [address] [place] [address] Dr. Anthony Newton Lab - Toxicology Resultson 0 10-05-2018 Lab - Toxicology Results [id number] [facility] 10-[facility]-2018 Outside Records [id number]#1.00 [facility] T[facility] Industrialon 10-05-19 Drug Screen Complete Collected [facility] Comment on above: Performed By: #### 1 [id number] #### [facility] (DEFAULT) [address] [place], [place] [id number] ED Clinical Summaryon 2018 ED Clinical Summary [facility] ? Urgent Care [address] [place], [place] [id number] Clinical Summary PERSON INFORMATION Name: FLORINDA, HESHAM MOE Age: 18 Years Sex: FEMALE : 00 MRN: Acct#: Visit Reason: Medical screening exam; PHYSICAL PRE EMPLOYMENT/ RIVERVIEW Arrival: 10/03/18 16:20:33 Discharge: 10/03/18 16:50:00 LOS: 000 00:30 Check In: 10/03/18 16:20:33 Checkout: 10/03/18 16:50:00 Address: [address] [place] [id number] PCP: PROVIDER INFORMATION Provider Role Assigned Unassigned Holden Gaitan PA-C ED PA 10/03/18 16:37:26 Larry Cazares RN ED Nurse 10/03/18 16:38:28 VITALS INFORMATION Vital [...] INFORMATION Instructions: Follow-Up: DIAGNOSIS: Patient Understands: Comment: [facility] ED Patient Summaryon 019 ED Patient Summary [facility] ? Urgent Care [address] [place] [address] [id number] PATIENT DISCHARGE INSTRUCTIONS Patient Information Name: FLORINDA, HESHAM PAYAL Age: 18 Years Date of : [birth year] [facility]: [id number] Reason For Visit: Medical screening exam; PHYSICAL PRE EMPLOYMENT/ RIVERVIEW Arrival Time: 10/03/18 16:20:33 Primary Care Physician: Attending Physician: Paulino Padilla Comment: Patient Education Medication Information: The exam and treatment you received today in the [facility] Emergency Department were for an urgent problem and are not intended as complete care. It is important for you to follow up with a doctor, nurse practitioner, or physician?s environmental emergencies assistant for ongoing care. If your symptoms become [...] so we can reach you if necessary. [facility] Emergency Department has provided you with a complete list of medications post discharge. Please inform your sign board erector/provider of your visit and for further instruction on these medications. Any specific questions regarding your chronic medications and dosages should be discussed with your primary care physician(s) and/or pharmacist. Visit Information Visit Diagnosis: Diagnoses This Visit Medical screening exam ([id number]) If you received any narcotics, sedation, or [...] sign any legal documents Reason for Visit: [place] physical Allergies: Substance Reaction Symptoms Type Comments [...] for Disease Control and Prevention December 2013 [facility] Vital Signs Date Time Vital Sign Value Performing Clinician Faci lity 04-12-2023 15:05-0500 Body height 162.6 cm Daniella Reina MD Work Phone: [facility] 04-12-2023 15:05-0500 Body mass index (BMI) [Ratio] 37.93 kg/m2 Daniella Reina MD Work Phone: [facility] 04-12-2023 15:05-0500 Body weight 100.25 kg Daniella Reina MD Work Phone: [facility] 04-12-2023 15:05-0500 Diastolic blood pressure 76 mm[Hg] Daniella Reina MD [facility] 04-12-2023 15:05-0500 Heart rate 96 /min Daniella Reina MD Work Phone: [facility] 04-12-2023 15:05-0500 Systolic blood pressure 115 mm[Hg] Daniella Reina MD Work Phone: [facility] Encounters Encounter Date Encounter Type Care Provider Facility Start: 04-18-2023 End: 04-18-2023 ambulatory LORETTA ROMAN Not Available Start: 04-12-2023 End: 04-12-2023 Office outpatient visit 25 minutes Daniella Reina MD Work Phone: [facility] Comment on above: 35 weeks gestation o f (Primary Dx); Polyhydramnios affecting Start: 04-12-2023 End: 04-12-2023 ambulatory LORETTA ROMAN Not Available Start: 03-30-2023 End: 03-30-2023 ambulatory LORETTA ABEL Not Available Start: 03-16-2023 End: 03-16-2023 ambulatory [...] DTaP,Tdap and Td Vaccines (6 - Tdap) [facility] Start: 11-09-2025 Screening for malign ant neoplasm of cervix Pap Smear [facility] Start: 04-12-2024 Adult BMI Screening Adult BMI Screen ing [facility] Start: 04-12-2024 Tobacco Screening Tobacco Screening [facility] Start: 11-10-2023 Screening for Chlamy annabella trachomatis Chlamydia Screening [facility] Start: 12-16-2022 COVID-19 Vaccine ( season) COVID-19 Vaccine ( season) [facility] Start: 12-16-2022 Influenza vaccination Influenza Vacc ine [facility] Start: 01-31-2022 Depression Screening Depression Scre ening [facility] Start: 2018 Adult BMI Follow Up Plan Adult BMI Follow Up Plan [facility] Immunizations Immunization Date Immunization Notes Care Provider Fa cility 02-01-2021 influenza virus vacc ine, unspecified formulation Daniella Reina MD Work Phone: [facility] 12-19-2020 diphtheria, tetanus toxoids and pertussis vaccine Daniella Reina MD Work Phone: [facility] 10-29-2019 hepatitis B vaccine, pediatric or pediatric/adolescent dosage Daniella Reina MD Work Phone: [facility] 05-14-2019 hepatitis B vaccine, adult dosage Daniella Reina MD Work Phone: [facility] 04-11-2019 hepatitis B vaccine, pediatric or pediatric/adolescent dosage Daniella Reina MD Work Phone: [facility] 04-11-2019 measles, mumps, rube lla, and varicella virus vaccine Daniella Reina MD Work Phone: [facility] 11-09-2017 meningococcal oligosaccharide (groups A, C, Y and W-135) diphtheria toxoid conjugate vaccine (MCV4O) Daniella Reina MD Work Phone: [facility] 12-08-2004 diphtheria, tetanus toxoids and acellular pertussis vaccine Daniella Reina MD Work Phone: [facility] 12-08-2004 measles, mumps and rubella virus vaccine Daniella Reina MD Work Phone: [facility] 12-08-2004 poliovirus vaccine, inactivated Daniella Reina MD Work Phone: [facility] 09-28-2001 measles, mumps and rubella virus vaccine Daniella Reina MD Work Phone: [facility] Work Phone: 03-23-2001 diphtheria, tetanus toxoids and acellular pertussis vaccine, unspecified formulation Daniella Reina MD Work Phone: [facility] 03-23-2001 haemophilus influenz ae type b conjugate and Hepatitis B vaccine Daniella Reina MD Work Phone: [facility] 03-23-2001 poliovirus vaccine, inactivated Daniella Reina MD Work Phone: [facility] 01-12-2001 diphtheria, tetanus toxoids and acellular pertussis vaccine, unspecified formulation Daniella Reina MD Work Phone: [facility] 01-12-2001 haemophilus influenz ae type b vaccine, HbOC conjugate Daniella Reina MD Work Phone: [facility] 01-12-2001 poliovirus vaccine, inactivated Daniella Reina MD Work Phone: [facility] 2000 diphtheria, tetanus toxoids and acellular pertussis vaccine, unspecified formulation Daniella Reina MD Work Phone: [facility] 2000 haemophilus influenz ae type b conjugate and Hepatitis B vaccine Daniella Reina MD Work Phone: [facility] 2000 poliovirus vaccine, inactivated Daniella Reina MD Work Phone: [facility] 2000 hepatitis B vaccine, pediatric or pediatric/adolescent dosage Daniella Reina MD Work Phone: [facility] NEGATED: Highlighted row has not occurred!04-11-2019 influenza, injectable, quadrivalent, preservative free Daniella Reina MD Work Phone: [facility] Comment on above: Deferred: Patient de cision Payers Date Payer Category Payer Unknown SVITLANA REILLY SS (PPO) [id number] [address] [phone] [address] [place] [address] [id number] 2022 Unknown [id number] 2000 Unknown [id number] 2000 Unknown [id number] 2000 Unknown [id number] 2000 Unknown [id number] 2000 Unknown [id number] 1959 Unknown [id number] Social History Date Type Detail Facility [facility]: [facility]23 [facility] Start: 04-12-2023 Tobacco use and exposure Smokeless tobacco non-user [facility] Start: 04-12-2023 Alcohol intake Lifetime non-d marlyn (finding) [facility] Start: 01-31-2021 End: 04-12-2023 History of Social function [facility] Start: 01-31-2021 End: 04-12-2023 Social connection and isolation panel [facility] Do you belong to any clubs or organizations such as sikhism groups, unions, fraternal or athletic groups, or school groups? No [facility] Are you now , , , , never or living with a partner? Living with partner [facility] How often to you hav e a drink containing alcohol? 2-4 times a month [facility] How many standard drinks containing alcohol do you have on a typical day? 3 or 4 [facility] How often do you hav e 6 or more drinks on 1 occasion? Less than monthly [facility] How hard is it for y ou to pay for the very basics like food, housing, medical care, and heating Not very hard [facility] Adolescent depressio n screening assessment 6 [facility] Do you feel stress - tense, restless, nervous, or anxious, or unable to sleep at night because your mind is troubled all the time - these days [OSQ] Very much [facility] Start: 01-31-2021 Education 21 [facility] Start: 08-21-2022 [facility] Start: 2000 Sex Assigned At Female P [facility] Start: 01-24-2023 Gender identity Identifies as female gender (finding) [facility] Start: 01-24-2023 Sexual orientation Heterosexual (sara sanchez) [facility] NEGATED: Highlighted rowStart: RANDI History of tobacco use [facility] Medical Equipment Procedure Code Equipment Code Equipment Origin al Text Equipment Identifier Dates Check blood suga r 4-5 times daily, fasting and 1 hour after meals. Use as directed. Dispense per insurance preference. [id number] Start: 04-12-2023 1 strip by miscellaneous route in the morning and 1 strip at noon and 1 strip in the evening and 1 strip before bedtime. Check blood sugar 4-5 times daily, fasting and 1 hour after meals. Use as directed. Dispense per insurance preference.. [id number] Start: 04-12-2023 History of Present illness Narrative [...] Drug Allergies CURRENT MEDICATIONS: Current Outpatient Medications: [id number]-pewls-zm2 (DUET DHA WITH OMEGA-3) 25 mg iron-1 [...] insurance preference.., Disp: 100 each, Rfl: 1 kft034-hlyz-glvbc-qp2 25 mg iron-1 mg -400 mg combo [...] patient is in complete care of her rock duster. Patient does have ultrasound and office visit scheduled with us. Thank you for allowing me to participate in the care of Hesham Avalos. If there any questions please do not hesitate to contact us. Daniella Reina MD Maternal- Medicine [facility] [address] [place] [address] [facility], the CDC, and other organizations representing maternal and public health professionals recommend that , , and lactating people and those considering receive the COVID-19 vaccination. Vaccination is the best method to reduce maternal and complications of SARS-CoV-2 infection. This document was created with ERN technology. Though I make every effort to review the dictation as it is transcribed, on occasion the spoken word can be misinterpreted by the technology leading to inappropriate words, phrases, or sentences. This note is addressed to the requesting provider as a consultation for clinical guidance. Specific medical abbreviations are occasionally used and those are generally approved by the [place]?Board of?Obstetrics and?Gynecology?as well as?Scout s abbreviations. The above plan of care was based solely on the diagnoses for which a consultation was requested. ?More frequent testing may be indicated based on her other medical/obstetrical conditions. The management of other or medical conditions is beyond the scope of requested consultation and will continue to be followed by the primary rock duster or primary care provider. Note to patient: [...] of the practitioner. documented in this encounter [facility] Evaluation note Note Date & Type Note Facility Evaluation note Diagnosis 35 weeks gestation of - Primary Polyhydramnios affecting documented in this encounter [facility] Instructions Note Date & Type Note Facility Instructions Not on filedocumented in this en counter [facility] Summary Purpose Family History No Family History Records FoundNo Family History Records FoundNo Family History Records Found Advance Directives No Advanced Directives Records FoundNo Advanced Directives Records FoundNo Advanced Directives Records Found Reason for Referral Specialty Diagnoses / Procedures Referred By Giovany rosales Referred To Contact Daniella Reina MD [address] [place] [address] Referral ID Status Reason Start Date Expiration Date V isits Requested Visits Authorized [id number] Pending Review 1 1 Referral ID Status Reason Start Date Expiration Date V isits Requested Visits Authorized [id number] Pending Review 1 1 Additional Source Comments INFORMATION SOURCE (unrecogn ized section and content) DATE CREATED AUTHOR 10/05/2018 [facility] DATE CREATED AUTHOR AUTHOR'S ORGANIZ ATION 04/13/2022 [facility] DATE CREATED AUTHOR AUTHOR'S ORGANIZ ATION 04/19/2023 [facility] EPIC Reason for Visit (unrecogniz [...] BE BASED ON THE PRIMARY CLINICAL RECORDS. [facility]. provides no warranty or guarantee of the accuracy or completeness of information in this document.
[2023-04-22 09:07] VITALS: BP 110/78; PULSE 91
--- NOTE | 2023-04-22 10:04 | US_ITS ---
[address] [address] Patient Name: HESHAM TAYLOR MRN: [id number] date: 2000 Sex: F Assigned Patient Location: [facility] Current Patient Location: Accession/Order Number: [id number] Exam Date: 04/22/2023 10:20 Report Date: 04/23/2023 11:21 At the request of: HALEIGH DAVIS Procedure: US OB BPP w non-stress EXAMINATION: US OB BPP w non-stress HISTORY: excessive growth COMPARISON: Ultrasound OB biophysical 04/19/2023 TECHNIQUE: Ultrasound biophysical profile was performed in the radiology department. BREATHING MOVEMENTS: 2.0 GROSS BODY MOVEMENTS: 2.0 TONE: 2.0 QUALITATIVE AMNIOTIC FLUID VOLUME: 2.0 PRESENTATION: CEPHALIC HEART RATE: 131.7 bpm bpm. AMNIOTIC FLUID VOLUME: 19.8 cm GESTATIONAL AGE: 37 weeks 5 days CONCLUSION: Total biophysical profile score 8.0. Electronically authenticated by: OLU HANKS Date: 04/23/2023 11:21
== END 2023-04-22 10:50 | disposition home or self-care (01) ==
LOC: FBCO 07:38 → FBC 09:01
PROVIDERS: Visit Provider Obstetrics & Gynecology
DX: O36.63X0 Maternal care for excessive fetal growth, third trimester, not applicable or unspecified (principal); Z3A.37 37 weeks gestation of pregnancy
CPT/HCPCS: 76818

== ENCOUNTER 2023-04-25 17:06 | Inpatient (IN) | payer BC, SELFPAY ==
--- OUTSIDE RECORDS SUMMARY | 2023-04-25 17:10 | XMS_ITS | CCD ---
Author Name Unknown Address [address] [place] [address] Organization [facility] Care Team Providers Care Aircraft Design Engineer Name Role Phone DR REBECA PACE Admitting Unavailable DR REBECA APCE Attending Unavailable MISC, DR HENDERSON Primary Care [...] iron tablet Take by mouth. 0 Active [id number] 3 (DUET DHA WITH OMEGA-3) 25 mg iron-1 mg -400 mg combo pack (1 source) [id number]-unyax-v m3 (DUET DHA WITH OMEGA-3) 25 mg iron-1 mg -400 mg combo pack Take by mouth. 0 Active [id number]-tpsv-eqzub-vm 3 25 mg iron-1 mg -400 mg combo pack (1 source) [id number]-[id number]-acwia-a m3 25 mg iron-1 mg -400 mg [...] 21 to 29on 03-04-[address] [facility] Comment on above: Performed By: #### [id number] #### [facility] [address] [address] [address] Anthony Newton Age Gdln ACOG Testing 21- Normal [facility] Comment on above: Performed By: #### [id number] #### [facility] [address] [address] [address] Anthony Newton DIAGNOSIS: Comment [facility] Comment on above: Result Comment: NEGA TIVE FOR INTRAEPITHELIAL LESION OR MALIGNANCY. THIS SPECIMEN WAS RESCREENED PART OF OUR LEAD RIDER PROGRAM. Performed By: #### [id number] #### [facility] [address] [place] [address] Dr. Anthony Newton Methodology: Comment Normal [facility] Comment on above: Result Comment: This liquid based ThinPrep(R) pap test was screened with the use of an image guided system. Performed By: #### [id number] #### [facility] [address] [place] [address] Dr. Anthony Newton Note: Comment Normal [facility] Comment on above: Result Comment: The Pap smear is a screening test designed to aid in the detection of premalignant and malignant conditions of the uterine cervix. It is not a diagnostic procedure and should not be used as the sole means of detecting cervical cancer. Both false-positive and false-negative reports do occur. . Performed By: #### [id number] #### [facility] [address] [place] [address] Dr. Anthony Newton Performed by: Comment Normal [facility] Comment on above: Result Comment: Lana Connell Dairy Farm Supervisor Performed By: #### [id number] #### [facility] [address] [place] [address] Dr. Anthony Newton QC reviewed by: Comment Normal [facility] Comment on above: Result Comment: Shae Maria, Dairy Farm Supervisor (ASCP) Performed By: #### [id number] #### [facility] [address] [place] [address] Dr. Anthony Newton Reflex Criteria: Comment Normal [facility] Comment on above: Result Comment: The HPV DNA reflex criteria were not met with this specimen result therefore, no HPV testing was performed. . Performed By: #### [id number] #### [facility] [address] [place] [address] Dr. Anthony Newton Specimen adequacy: Comment Normal [facility] Comment on above: Result Comment: Sati sfactory for evaluation. Endocervical and/or squamous metaplastic cells (endocervical component) are present. Performed By: #### 4 [id number] #### [facility] [address] [place] [address] Dr. Anthony Newton Lab - Toxicology Resultson 0 10-05-2018 Lab - Toxicology Results [id number]#[id number] [facility] Outside Record[facility] 10-04-2018 Outside Records [id number] [facility] Triage Industrialon 10-05-19 Drug Screen Complete Collected [facility] Comment on above: Performed By: #### 1 [id number] #### [facility] (DEFAULT) [address] [place], [place] [id number] ED Clinical Summaryon 2018 ED Clinical Summary [facility] ? Urgent Care [address] [place], [place] [id number] Clinical Summary PERSON INFORMATION Name: FLORINDA, HESHAM MOE Age: 18 Years Sex: FEMALE : 00 MRN: Acct#: Visit Reason: Medical screening exam; PHYSICAL PRE EMPLOYMENT/ RIVERVIEW Arrival: 10/03/18 16:20:33 Discharge: 10/03/18 16:50:00 LOS: 000 00:30 Check In: 10/03/18 16:20:33 Checkout: 10/03/18 16:50:00 Address: [address] [place] [id number] PCP: PROVIDER INFORMATION Provider Role Assigned Unassigned [...] INFORMATION Instructions: Follow-Up: DIAGNOSIS: Patient Understands: Comment: [facility] ED Patient Summaryon 019 ED Patient Summary [facility] ? Urgent Care [address] [place] [address] [id number] PATIENT DISCHARGE INSTRUCTIONS Patient Information Name: FLORINDA, HESHAM PAYAL Age: 18 Years Date of : 00 [facility]: [id number] Reason For Visit: Medical screening exam; PHYSICAL PRE EMPLOYMENT/ RIVERVIEW Arrival Time: 10/03/18 16:20:33 Primary Care Physician: Attending Physician: Paulino Padilla Comment: Patient Education Medication Information: The exam and treatment you received today in the [facility] Emergency Department were for an urgent problem and are not intended as complete care. It is important for you to follow up with a doctor, nurse practitioner, or physician?s assistant golf coach for ongoing care. If your symptoms become [...] so we can reach you if necessary. [facility] Emergency Department has provided you with a complete list of medications post discharge. Please inform your tow truck operator/provider of your visit and for further instruction on these medications. Any specific questions regarding your chronic medications and dosages should be discussed with your primary care physician(s) and/or pharmacist. Visit Information Visit Diagnosis: Diagnoses This Visit Medical screening exam ([id number]) If you received any narcotics, sedation, or [...] sign any legal documents Reason for Visit: Elmo physical Allergies: Substance Reaction Symptoms Type Comments [...] for Disease Control and Prevention December 2013 [facility] Vital Signs Date Time Vital Sign Value Performing Clinician Faci lity 04-12-2023 15:05-0500 Body height 162.6 cm Daniella Reina MD [facility] 04-12-2023 15:05-0500 Body mass index (BMI) [Ratio] 37.93 kg/m2 Daniella Reina MD [facility] 04-12-2023 15:05-0500 Body weight 100.25 kg Daniella Reina MD [facility] 04-12-2023 15:05-0500 Diastolic blood pressure 76 mm[Hg] Daniella [facility]ina MD [facility] 04-12-2023 15:05-0500 Heart rate 96 /min Daniella Reina MD [facility] 04-12-2023 15:05-0500 Systolic blood pressure 115 mm[Hg] Daniella Reina MD Work Phone: [facility] Encounters Encounter Date Encounter Type Care Provider Facility Start: 04-18-2023 End: 04-18-2023 ambulatory LORETTA ROMAN Not Available Start: 04-12-2023 End: 04-12-2023 Office outpatient visit 25 minutes Daniella Reina MD Work Phone: [facility] Comment on above: 35 weeks gestation o [...] DTaP,Tdap and Td Vaccines (6 - Tdap) [facility] Start: 11-09-2025 Screening for malign ant neoplasm of cervix Pap Smear [facility] Start: 04-12-2024 Adult BMI Screening Adult BMI Screen ing [facility] Start: 04-12-2024 Tobacco Screening Tobacco Screening [facility] Start: 11-10-2023 Screening for Chlamy annabella trachomatis Chlamydia Screening [facility] Start: 12-16-2022 COVID-19 Vaccine ( season) COVID-19 Vaccine ( season) [facility] Start: 12-16-2022 Influenza vaccination Influenza Vacc ine [facility] Start: 01-31-2022 Depression Screening Depression Scre ening [facility] Start: 2018 Adult BMI Follow Up Plan Adult BMI Follow Up Plan [facility] Immunizations Immunization Date Immunization Notes Care Provider Fa cility 02-01-2021 influenza virus vacc ine, unspecified formulation Daniella Reina MD Work Phone: [facility] 12-19-2020 diphtheria, tetanus toxoids and pertussis vaccine Daniella Reina MD Work Phone: [facility] 10-29-2019 hepatitis B vaccine, pediatric or pediatric/adolescent dosage Daniella Reina MD Work Phone: [facility] 05-14-2019 hepatitis B vaccine, adult dosage Daniella Reina MD Work Phone: [facility] 04-11-2019 hepatitis B vaccine, pediatric or pediatric/adolescent dosage Daniella Reina MD Work Phone: [facility] 04-11-2019 measles, mumps, rube lla, and varicella virus vaccine Daniella Reina MD Work Phone: [facility] 11-09-2017 meningococcal oligosaccharide (groups A, C, Y and W-135) diphtheria toxoid conjugate vaccine (MCV4O) Daniella Reina MD Work Phone: [facility] 12-08-2004 diphtheria, tetanus toxoids and acellular pertussis vaccine Daniella Reina MD Work Phone: [facility] 12-08-2004 measles, mumps and rubella virus vaccine Daniella Reina MD Work Phone: [facility] 12-08-2004 poliovirus vaccine, inactivated Daniella Reina MD Work Phone: [facility] 09-28-2001 measles, mumps and rubella virus vaccine Daniella Reina MD Work Phone: [facility] Work Phone: 03-23-2001 diphtheria, tetanus toxoids and acellular pertussis vaccine, unspecified formulation Daniella Reina MD Work Phone: [facility] 03-23-2001 haemophilus influenz ae type b conjugate and Hepatitis B vaccine Daniella Reina MD Work Phone: [facility] 03-23-2001 poliovirus vaccine, inactivated Daniella Reina MD Work Phone: [facility] 01-12-2001 diphtheria, tetanus toxoids and acellular pertussis vaccine, unspecified formulation Daniella Reina MD Work Phone: [facility] 01-12-2001 haemophilus influenz ae type b vaccine, HbOC conjugate Daniella Reina MD Work Phone: [facility] 01-12-2001 poliovirus vaccine, inactivated Daniella Reina MD Work Phone: [facility] 2000 diphtheria, tetanus toxoids and acellular pertussis vaccine, unspecified formulation Daniella Reina MD Work Phone: [facility] 2000 haemophilus influenz ae type b conjugate and Hepatitis B vaccine Daniella Reina MD Work Phone: [facility] 2000 poliovirus vaccine, inactivated Daniella Reina MD Work Phone: [facility] 2000 hepatitis B vaccine, pediatric or pediatric/adolescent dosage Daniella Reina MD Work Phone: [facility] NEGATED: Highlighted row has not occurred!04-11-2019 influenza, injectable, quadrivalent, preservative free Daniella Reina MD Work Phone: [facility] Comment on above: Deferred: Patient de cision Payers Date Payer Category Payer Unknown SVITLANA REILLY SS (PPO) [id number] 2022-[facility] [phone] [address] [place] [address] [id number] 2022 Unknown [id number] 2000 Unknown [id number] 2000 Unknown [id number] 2000 Unknown [id number] 2000 Unknown [id number] 2000 Unknown [id number] 1959 Unknown [id number] Social History Date Type Detail Facility [facility]: [facility]23 [facility] Start: 04-12-2023 Tobacco use and exposure Smokeless tobacco non-user [facility] Start: 04-12-2023 Alcohol intake Lifetime non-d marlyn (finding) [facility] Start: 01-31-2021 End: 04-12-2023 History of Social function [facility] Start: 01-31-2021 End: 04-12-2023 Social connection and isolation panel [facility] Do you belong to any clubs or organizations such as baptism groups, unions, fraternal or athletic groups, or school groups? No [facility] Are you now , , , , never or living with a partner? Living with partner [facility] How often to you hav e a drink containing alcohol? 2-4 times a month [facility] How many standard drinks containing alcohol do you have on a typical day? 3 or 4 [facility] How often do you hav e 6 or more drinks on 1 occasion? Less than monthly [facility] How hard is it for y ou to pay for the very basics like food, housing, medical care, and heating Not very hard [facility] Adolescent depressio n screening assessment 6 [facility] Do you feel stress - tense, restless, nervous, or anxious, or unable to sleep at night because your mind is troubled all the time - these days [OSQ] Very much [facility] Start: 01-31-2021 Education 21 [facility] Start: 08-21-2022 [facility] Start: 2000 Sex Assigned At Female P [facility] Start: 01-24-2023 Gender identity Identifies as female gender (finding) [facility] Start: 01-24-2023 Sexual orientation Heterosexual (sara sanchez) [facility] NEGATED: Highlighted rowStart: RANDI History of [facility] Medical Equipment Procedure Code Equipment Code Equipment Origin al Text Equipment Identifier Dates Check blood suga r 4-5 times daily, fasting and 1 hour after meals. Use as directed. Dispense per insurance preference. [id number] Start: 04-12-2023 1 strip by miscellaneous route in the morning and 1 strip at noon and 1 strip in the evening and 1 strip before bedtime. Check blood sugar 4-5 times daily, fasting and 1 hour after meals. Use as directed. Dispense per insurance preference.. [id number] Start: 04-12-2023 History of Present illness Narrative [...] Drug Allergies CURRENT MEDICATIONS: Current Outpatient Medications: [id number] (DUET DHA WITH OMEGA-3) 25 mg iron-1 [...] insurance preference.., Disp: 100 each, Rfl: 1 [id number] 25 mg iron-1 mg -400 mg combo [...] patient is in complete care of her dean of student services. Patient does have ultrasound and office visit scheduled with us. Thank you for allowing me to participate in the care of Hesham Avalos. If there any questions please do not hesitate to contact us. Daniella Reina MD Maternal- Medicine [facility] [address] 1[address] [place] [address] [facility], the CDC, and other organizations representing maternal and public health professionals recommend that , , and lactating people and those considering receive the COVID-19 vaccination. Vaccination is the best method to reduce maternal and complications of SARS-CoV-2 infection. This document was created with [employer] technology. Though I make every effort to review the dictation as it is transcribed, on occasion the spoken word can be misinterpreted by the technology leading to inappropriate words, phrases, or sentences. This note is addressed to the requesting provider as a consultation for clinical guidance. Specific medical abbreviations are occasionally used and those are generally approved by the [place]?Board of?Obstetrics and?Gynecology?as well as?Scout s abbreviations. The above plan of care was based solely on the diagnoses for which a consultation was requested. ?More frequent testing may be indicated based on her other medical/obstetrical conditions. The management of other or medical conditions is beyond the scope of requested consultation and will continue to be followed by the primary dean of student services or primary care provider. Note to patient: [...] of the practitioner. documented in this encounter [facility] Evaluation note Note Date & Type Note Facility Evaluation note Diagnosis 35 weeks gestation of - Primary Polyhydramnios affecting documented in this encounter [facility] Instructions Note Date & Type Note [...] rosales Referred To Contact Daniella Reina MD [address] [place] [address] Referral ID Status Reason Start Date Expiration Date V isits Requested Visits Authorized [id number] Pending Review 1 1 Referral ID Status Reason Start Date Expiration Date V isits Requested Visits Authorized [id number] Pending Review 1 1 Additional Source Comments INFORMATION SOURCE (unrecogn ized section and content) DATE CREATED AUTHOR 10/05/2018 [facility] DATE CREATED AUTHOR AUTHOR'S ORGANIZ ATION 04/13/2022 [facility] DATE CREATED AUTHOR AUTHOR'S ORGANIZ ATION 04/19/2023 [facility] EPIC Reason for [...] BE BASED ON THE PRIMARY CLINICAL RECORDS. [facility] [facility]. provides no warranty or guarantee of the accuracy or completeness of information in this document.
[2023-04-25 17:31] VITALS: RESP 16; TEMP 36.7
[2023-04-25 17:34] VITALS: BP 120/61; PULSE 80
[2023-04-25 18:59] LABS: Hematocrit 34.2 % (36.0-48.0); Hemoglobin 11.1 g/dL (12.0-16.0); Mean Corpuscular HGB Conc 32.5 g/dL (29.9-35.2); Mean Corpuscular Hemoglobin 30.2 pg (26.7-34.0); Mean Corpuscular Volume 93.2 fL (81.0-99.0); Mean Platelet Volume 11.5 fL (9.5-13.5); Platelet Count 197 10^3/uL (150-450); Red Blood Count 3.67 10^6/uL (4.20-5.40); Red Cell Distribution Width 13.6 % (11.0-15.0); White Blood Count 9.9 10^3/uL (4.0-11.0)
[2023-04-25 19:10] LABS: Amphetamine Screen Urine NEGATIVE (NEGATIVE); Barbiturates Screen Urine NEGATIVE (NEGATIVE); Benzodiazepines Screen Urine NEGATIVE (NEGATIVE); Buprenorphine Screen Urine NEGATIVE (NEGATIVE); Cannabinoid Screen Urine NEGATIVE (NEGATIVE); Cocaine Screen Urine NEGATIVE (NEGATIVE); Methadone Screen Urine NEGATIVE (NEGATIVE); Methamphetamines Screen Urine NEGATIVE (NEGATIVE); Opiate Screen Urine NEGATIVE (NEGATIVE); Oxycodone Screen Urine NEGATIVE (NEGATIVE); Phencyclidine Screen Urine NEGATIVE (NEGATIVE); Tricyclic Antidepressant Urine NEGATIVE (NEGATIVE)
--- NOTE | 2023-04-25 20:31 | PC.NURSE ---
Nurse receives report from Cintia Hoff RN at bedside. pt denies any needs at this time, on birthing ball. Nurse supplies fresh water, popscile, and jello for patient.
[2023-04-25 20:41] VITALS: TEMP 36.2
[2023-04-25 20:42] VITALS: BP 116/63; PULSE 75
[2023-04-25 21:16] VITALS: RESP 16; TEMP 36.7
[2023-04-25 22:09] VITALS: BP 108/68; PULSE 75; TEMP 35.8
[2023-04-26] VITALS (26 sets, daily range): BP systolic 98–145; BP diastolic 54–78; PULSE 72–131; RESP 16–18; TEMP 35.7–36.7; O2SAT 98
[2023-04-26] MEDS: 0.9 % SODIUM CHLORIDE 1,000 ML 125 ML IV (00:12)
[2023-04-26] MEDS: OXYTOCIN/0.9 % SODIUM CHLORIDE 10 UNITS/500 ML PLAST..BAG 6 UNIT IV (01:01)
[2023-04-26] MEDS: 0.9 % SODIUM CHLORIDE 1,000 ML 1000 ML IV (01:43)
[2023-04-26] MEDS: FENTANYL CITRATE/PF 100 MCG/2 ML VIAL EPIDURAL (02:33)
[2023-04-26] MEDS: LIDOCAINE HCL 2% PF 100 MG/5 ML VIAL INJ (02:33)
[2023-04-26] MEDS: ROPIVACAINE HCL/PF 400 MG/200 ML PREMIX 6 MG EPIDURAL (02:34)
--- NOTE | 2023-04-26 03:38 | PM.OBPRCVD ---
Procedure Intrapartal events: None Induction method: none Delivery augmentation: pitocin Delivery monitor: external FHT and external uterine Route of delivery: Episiotomy Description: none Laceration description: none Anesthesia type: Epidural Disposition: floor Infant Delivery date: 04/26/23 Gender: female presentation: vertex Placental delivery description: Spontaneous cord description: 3 Vessels and Nuchal Cord (times 1)
--- NOTE | 2023-04-26 07:47 | W.PC.ACHO ---
Registration Status: ADM IN Primary Language: Divehi Preferred Language: Divehi Active Medications Generic Name Dose Route Start Last Admin Trade Name Freq PRN Reason Stop Dose Admin Acetaminophen 650 mg 04/26/23 03:39 Acetaminophen 325 Mg Tablet PO Q6H PRN Mild Pain Al Hydroxide/Mg Hydroxide 2,400 mg 04/26/23 03:39 Magnesium Hydroxide 2,400 Mg/10 Ml Oral.Susp PO Q6H PRN Dyspepsia Benzocaine/Menthol 1 applic 04/26/23 03:39 Benzocaine/Menthol 85 Gram [place] Bottle TOPICAL Q2H PRN Pain Carboprost Tromethamine 250 mcg 04/25/23 18:03 Carboprost Tromethamine 250 Mcg/Ml 1 Ml Vial IM 04/27/23 18:03 Q15M PRN Bleeding Carboprost Tromethamine 250 mcg 04/25/23 20:49 Carboprost Tromethamine 250 Mcg/Ml 1 Ml Vial IM 04/27/23 20:50 Q15M PRN Bleeding Diphenhydramine HCl 25 mg 04/25/23 21:01 Diphenhydramine Hcl 50 Mg/Ml (1ml) Vial IV 04/26/23 21:02 Q6H PRN Itching Diphtheria/Pertussis/Tetanus Vacc 0.5 ml 04/28/23 09:00 Adacel Diph,Pertuss(Acell),Tet Vac/Pf 0.5 Ml Adult Syringe IM 04/28/23 09:01 .ONCE ONE Docusate Sodium 100 mg 04/27/23 09:00 Docusate Sodium 100 Mg Capsule PO BID JANNA Ephedrine Sulfate 5 mg 04/25/23 21:01 Ephedrine Sulfate 50 Mg/Ml Vial IV 04/26/23 21:02 Q5M PRN Blood Pressure - Low Fentanyl Citrate 100 mcg 04/25/23 21:01 04/26/23 02:33 Fentanyl Citrate/Pf 100 Mcg/2 Ml Vial EPIDURAL 100 mcg ONCE PRN Administration epidural Fentanyl Citrate 100 mcg 04/25/23 21:01 Fentanyl Citrate/Pf 100 Mcg/2 Ml Vial EPIDURAL ONCE PRN epidural Sodium Chloride 1,000 mls @ 125 mls/hr 04/25/23 18:15 04/26/23 00:12 Sodium Chloride 0.9% 1,000 Ml IV 125 mls/hr .Q8H JANNA Administration Oxytocin/Sodium Chloride 20 units in 1,000 mls @ 125 mls/hr 04/25/23 18:15 Pitocin 20 Unit/1,000 Ml-Ns IV Q8H PRN POST DELIVERY Oxytocin/Sodium Chloride 10 units in 500 mls @ 6 mls/hr 04/26/23 00:00 04/26/23 01:01 Pitocin 10 Unit/500 Ml-Ns IV 2 milliunit/min CONT JANNA 6 mls/hr Administration Protocol 2 MILLIUNIT/MIN Ropivacaine/Sodium Chloride 400 mg in 200 mls @ 6 mls/hr 04/25/23 21:15 04/26/23 02:34 Naropin 0.2% 400 Mg/200 Ml Bag EPIDURAL 6 mls/hr Q24H [facility] Administration Oxytocin 20 unit/ Sodium 1,002 mls @ 125 mls/hr 04/26/23 03:45 Chloride IV 04/26/23 11:44 Q8H JANNA Ibuprofen 600 mg 04/26/23 03:39 Ibuprofen 600 Mg Tablet PO Q6H PRN Moderate Pain Lidocaine 5 ml 04/25/23 18:03 Lidocaine Viscous 2% 15 Ml Solution TOPICAL ONCE PRN Pain Lidocaine 1 ml 04/25/23 18:03 Lidocaine Hcl 1% 200 Mg/20 Ml Mdv INJ ONCE PRN Pain Lidocaine 5 ml 04/25/23 21:01 04/26/23 02:33 Lidocaine Hcl 2% Pf 100 Mg/5 Ml Vial INJ 04/26/23 21:01 5 ml Q1H PRN Administration epidural Measles/Mumps/Rubella Vaccine Live 0.5 ml 04/28/23 09:00 Measles,Mumps,Rubella Vacc/Pf 0.5 Ml Vial SQ 04/28/23 09:01 .ONCE ONE Methylergonovine Maleate 0.2 mg 04/25/23 18:03 Methylergonovine Maleate 0.2 Mg/Ml Ampule IM 04/27/23 18:03 ONCE PRN Uterine Contractility/Contract Methylergonovine Maleate 0.2 mg 04/25/23 18:03 Methylergonovine Maleate 0.2 Mg Tablet PO 04/27/23 18:03 Q4H PRN Uterine Contractility/Contract Methylergonovine Maleate 0.2 mg 04/25/23 20:49 Methylergonovine Maleate 0.2 Mg/Ml Ampule IM 04/27/23 20:50 ONCE PRN Uterine Contractility/Contract Methylergonovine Maleate 0.2 mg 04/25/23 20:49 Methylergonovine Maleate 0.2 Mg Tablet PO 04/27/23 20:50 Q4H PRN Uterine Contractility/Contract Misoprostol 600 mcg 04/25/23 18:03 Misoprostol 100 Mcg Tablet PO 04/27/23 18:03 ONCE PRN Uterine Bleeding Misoprostol 800 mcg 04/25/23 18:03 Misoprostol 100 Mcg Tablet SL 04/27/23 18:03 ONCE PRN Uterine Bleeding Misoprostol 1,000 mcg 04/25/23 18:03 Misoprostol 100 Mcg Tablet CO 04/27/23 18:03 ONCE PRN Uterine Bleeding Misoprostol 600 mcg 04/25/23 20:49 Misoprostol 100 Mcg Tablet PO 04/27/23 20:50 ONCE PRN Uterine Bleeding Misoprostol 800 mcg 04/25/23 20:49 Misoprostol 100 Mcg Tablet SL 04/27/23 20:50 ONCE PRN Uterine Bleeding Misoprostol 1,000 mcg 04/25/23 20:49 Misoprostol 100 Mcg Tablet CO 04/27/23 20:50 ONCE PRN Uterine Bleeding Naloxone HCl 0.4 mg 04/25/23 21:01 Naloxone Hcl 0.4 Mg/Ml Vial IV 04/26/23 21:02 ONCE PRN epidural Ondansetron HCl 4 mg 04/25/23 18:03 Ondansetron Pf 4 Mg/2 Ml Vial IV Q6H PRN Nausea And Vomiting Ondansetron HCl 4 mg 04/25/23 18:03 Ondansetron 4 Mg Rapdis Tablet SL Q6H PRN Nausea And Vomiting Oxytocin 10 unit 04/25/23 18:03 Oxytocin 10 Unit/Ml Vial IM 04/27/23 18:03 ONCE PRN Bleeding Oxytocin 10 unit 04/25/23 20:49 Oxytocin 10 Unit/Ml Vial IM 04/27/23 20:50 ONCE PRN Bleeding Senna 17.2 mg 04/26/23 20:00 Sennosides 8.6 Mg Tablet PO QHS PRN Constipation Simethicone 80 mg 04/26/23 03:39 Simethicone 80 Mg Tab.Chew PO QID PRN Abdominal Distention Temazepam 15 mg 04/26/23 03:39 Temazepam 15 Mg Capsule PO QHS PRN Sleep Witch Brielle/Glycerin 1 pad 04/26/23 03:39 Glycerin/Witch Brielle Pads TOPICAL Q2H PRN Pain Diet Category Date Time Status Regular Consistency Diet Diet 04/26/23 03:40 Active IV Insertion/Site Date of IV Line Insertion [20g 04/25/23 left Forearm] IV Insertion Time [20g left 18:10 Forearm] Neurology Patient orientation (short person,place,time,situation list)
--- NOTE | 2023-04-26 08:53 | W.PC.ACHO ---
Registration Status: ADM IN Primary Language: Marshallese Preferred Language: Marshallese Report received from Julia Moon RN at 0700. Active Medications Generic Name Dose Route Start Last Admin Trade Name Freq PRN Reason Stop Dose Admin Acetaminophen 650 mg 04/26/23 03:39 Acetaminophen 325 Mg Tablet PO Q6H PRN Mild Pain Al Hydroxide/Mg Hydroxide 2,400 mg 04/26/23 03:39 Magnesium Hydroxide 2,400 Mg/10 Ml Oral.Susp PO Q6H PRN Dyspepsia Benzocaine/Menthol 1 applic 04/26/23 03:39 Benzocaine/Menthol 85 Gram [place] Bottle TOPICAL Q2H PRN Pain Carboprost Tromethamine 250 mcg 04/25/23 18:03 Carboprost Tromethamine 250 Mcg/Ml 1 Ml Vial IM 04/27/23 03:00 Q15M PRN Bleeding Diphtheria/Pertussis/Tetanus Vacc 0.5 ml 04/28/23 09:00 Adacel Diph,Pertuss(Acell),Tet Vac/Pf 0.5 Ml Adult Syringe IM 04/28/23 09:01 .ONCE ONE Docusate Sodium 100 mg 04/27/23 09:00 Docusate Sodium 100 Mg Capsule PO BID JANNA Sodium Chloride 1,000 mls @ 125 mls/hr 04/25/23 18:15 04/26/23 00:12 Sodium Chloride 0.9% 1,000 Ml IV 125 mls/hr .Q8H JANNA Administration Oxytocin 20 unit/ Sodium 1,002 mls @ 125 mls/hr 04/26/23 03:45 04/26/23 03:35 Chloride IV 04/26/23 11:44 125 mls/hr Q8H JANNA Administration Ibuprofen 600 mg 04/26/23 03:39 Ibuprofen 600 Mg Tablet PO Q6H PRN Moderate Pain Measles/Mumps/Rubella Vaccine Live 0.5 ml 04/28/23 09:00 Measles,Mumps,Rubella Vacc/Pf 0.5 Ml Vial SQ 04/28/23 09:01 .ONCE ONE Methylergonovine Maleate 0.2 mg 04/25/23 18:03 Methylergonovine Maleate 0.2 Mg/Ml Ampule IM 04/27/23 03:00 ONCE PRN Uterine Contractility/Contract Methylergonovine Maleate 0.2 mg 04/25/23 18:03 Methylergonovine Maleate 0.2 Mg Tablet PO 04/27/23 03:00 Q4H PRN Uterine Contractility/Contract Misoprostol 600 mcg 04/25/23 18:03 Misoprostol 100 Mcg Tablet PO 04/27/23 03:00 ONCE PRN Uterine Bleeding Misoprostol 800 mcg 04/25/23 18:03 Misoprostol 100 Mcg Tablet SL 04/27/23 03:00 ONCE PRN Uterine Bleeding Misoprostol 1,000 mcg 04/25/23 18:03 Misoprostol 100 Mcg Tablet SD 04/27/23 03:00 ONCE PRN Uterine Bleeding Ondansetron HCl 4 mg 04/25/23 18:03 Ondansetron Pf 4 Mg/2 Ml Vial IV Q6H PRN Nausea And Vomiting Ondansetron HCl 4 mg 04/25/23 18:03 Ondansetron 4 Mg Rapdis Tablet SL Q6H PRN Nausea And Vomiting Oxytocin 10 unit 04/25/23 18:03 Oxytocin 10 Unit/Ml Vial IM 04/26/23 12:00 ONCE PRN Bleeding Senna 17.2 mg 04/26/23 20:00 Sennosides 8.6 Mg Tablet PO QHS PRN Constipation Simethicone 80 mg 04/26/23 03:39 Simethicone 80 Mg Tab.Chew PO QID PRN Abdominal Distention Temazepam 15 mg 04/26/23 03:39 Temazepam 15 Mg Capsule PO QHS PRN Sleep Witch [place]/Glycerin 1 pad 04/26/23 03:39 Glycerin/Witch [place] Pads TOPICAL Q2H PRN Pain Diet Category Date Time Status Regular Consistency Diet Diet 04/26/23 03:40 Active IV Insertion/Site Date of IV Line Insertion [20g 04/25/23 left Forearm] IV Insertion Time [20g left 18:10 Forearm] Neurology Patient orientation (short person,place,time,situation list) Respiratory Oxygen Delivery Method Room Air Oxygen Delivery Method Room Air Oxygen Delivery Method Room Air Cardiology Heart Sounds Strong
[2023-04-26] MEDS: IBUPROFEN 600 MG TABLET PO (13:52)
--- NOTE | 2023-04-26 21:45 | W.PC.ACHO ---
Registration Status: ADM IN Primary Language: Uruguayan Preferred Language: [place] Report given to Pj Gongora RN at 1945. Active Medications Generic Name Dose Route Start Last Admin Trade Name Freq PRN Reason Stop Dose Admin Acetaminophen 650 mg 04/26/23 03:39 Acetaminophen 325 Mg Tablet PO Q6H PRN Mild Pain Al Hydroxide/Mg Hydroxide 2,400 mg 04/26/23 03:39 Magnesium Hydroxide 2,400 Mg/10 Ml Oral.Susp PO Q6H PRN Dyspepsia Benzocaine/Menthol 1 applic 04/26/23 03:39 Benzocaine/Menthol 85 Gram [place] Bottle TOPICAL Q2H PRN Pain Carboprost Tromethamine 250 mcg 04/25/23 18:03 Carboprost Tromethamine 250 Mcg/Ml 1 Ml Vial IM 04/27/23 03:00 Q15M PRN Bleeding Diphtheria/Pertussis/Tetanus Vacc 0.5 ml 04/28/23 09:00 Adacel Diph,Pertuss(Acell),Tet Vac/Pf 0.5 Ml Adult Syringe IM 04/28/23 09:01 .ONCE ONE Docusate Sodium 100 mg 04/27/23 09:00 Docusate Sodium 100 Mg Capsule PO BID JANNA Sodium Chloride 1,000 mls @ 125 mls/hr 04/25/23 18:15 04/26/23 00:12 Sodium Chloride 0.9% 1,000 Ml IV 125 mls/hr .Q8H JANNA Administration Ibuprofen 600 mg 04/26/23 03:39 04/26/23 13:52 Ibuprofen 600 Mg Tablet PO 600 mg Q6H PRN Administration Moderate Pain Measles/Mumps/Rubella Vaccine Live 0.5 ml 04/28/23 09:00 Measles,Mumps,Rubella Vacc/Pf 0.5 Ml Vial SQ 04/28/23 09:01 .ONCE ONE Methylergonovine Maleate 0.2 mg 04/25/23 18:03 Methylergonovine Maleate 0.2 Mg/Ml Ampule IM 04/27/23 03:00 ONCE PRN Uterine Contractility/Contract Methylergonovine Maleate 0.2 mg 04/25/23 18:03 Methylergonovine Maleate 0.2 Mg Tablet PO 04/27/23 03:00 Q4H PRN Uterine Contractility/Contract Misoprostol 600 mcg 04/25/23 18:03 Misoprostol 100 Mcg Tablet PO 04/27/23 03:00 ONCE PRN Uterine Bleeding Misoprostol 800 mcg 04/25/23 18:03 Misoprostol 100 Mcg Tablet SL 04/27/23 03:00 ONCE PRN Uterine Bleeding Misoprostol 1,000 mcg 04/25/23 18:03 Misoprostol 100 Mcg Tablet NC 04/27/23 03:00 ONCE PRN Uterine Bleeding Ondansetron HCl 4 mg 04/25/23 18:03 Ondansetron Pf 4 Mg/2 Ml Vial IV Q6H PRN Nausea And Vomiting Ondansetron HCl 4 mg 04/25/23 18:03 Ondansetron 4 Mg Rapdis Tablet SL Q6H PRN Nausea And Vomiting Senna 17.2 mg 04/26/23 20:00 Sennosides 8.6 Mg Tablet PO QHS PRN Constipation Simethicone 80 mg 04/26/23 03:39 Simethicone 80 Mg Tab.Chew PO QID PRN Abdominal Distention Temazepam 15 mg 04/26/23 03:39 Temazepam 15 Mg Capsule PO QHS PRN Sleep Witch [place]/Glycerin 1 pad 04/26/23 03:39 Glycerin/Witch [place] Pads TOPICAL Q2H PRN Pain Diet Category Date Time Status Regular Consistency Diet Diet 04/26/23 03:40 Active Respiratory Pulse Oximetry 98 Pulse Oximetry 98 Oxygen Delivery Method Room Air Oxygen Delivery Method Room Air Oxygen Delivery Method Room Air Oxygen Delivery Method Room Air Oxygen Delivery Method Room Air Oxygen Delivery Method Room Air Cardiology Heart Sounds Strong,Regular Heart Sounds Strong Heart Sounds Strong Bowels Date of Last Bowel Movement 04/26/23 Date of Last Bowel Movement 04/26/23 Renal Bladder Pattern Continent Bladder Pattern Continent
[2023-04-27] VITALS (7 sets, daily range): BP systolic 106–139; BP diastolic 65–92; PULSE 79–100; RESP 16; TEMP 36.4–36.7; O2SAT 98
[2023-04-27] MEDS: IBUPROFEN 600 MG TABLET PO ×2 (00:02→15:48)
[2023-04-27 05:48] LABS: Basophils Percent Auto 0.4 % (0.2-2.0); Eosinophils Absolute Auto 0.1 10^3/uL (0.0-0.7); Eosinophils Percent Auto 0.8 % (0.9-7.0); Hemoglobin 9.9 g/dL (12.0-16.0); Immature Granulocytes Abs Auto 0.04 10^3/uL (0.00-0.03); Immature Granulocytes Pct Auto 0.5 % (0.0-0.5); Lymphocytes Absolute Auto 2.2 10^3/uL (1.2-3.8); Mean Corpuscular HGB Conc 31.9 g/dL (29.9-35.2); Mean Corpuscular Hemoglobin 30.3 pg (26.7-34.0); Mean Corpuscular Volume 94.8 fL (81.0-99.0); Mean Platelet Volume 11.4 fL (9.5-13.5); Monocytes Absolute Auto 0.6 10^3/uL (0.3-0.8); Monocytes Percent Auto 6.6 % (1.7-12.0); Neutrophils Absolute Auto 5.5 10^3/uL (1.4-6.5); Neutrophils Percent Auto 65.7 % (43.0-75.0); Platelet Count 161 10^3/uL (150-450); Red Blood Count 3.27 10^6/uL (4.20-5.40); Red Cell Distribution Width 13.5 % (11.0-15.0); White Blood Count 8.4 10^3/uL (4.0-11.0)
--- NOTE | 2023-04-27 07:37 | P.OBPN_ITS ---
OB - PN: Subj Subjective Patient comments: no complaints [place] status: doing well feeding status: exclusively Exam Constitutional Vital Signs, click to edit/add: Last Vital Signs Temp 97.6 F 04/27/23 00:04 Pulse 80 04/27/23 00:04 Resp 16 04/27/23 00:04 BP 106/65 04/27/23 00:04 Pulse Ox 98 04/26/23 18:08 O2 Del Method Room Air 04/27/23 00:04 Common normals: no apparent distress and oriented x3 HENMT Common normals: normocephalic Eye Common normals: EOMs intact bilaterally Neck & C-Spine Common normals: full ROM General: normal visual inspection Lymph Lymphatic: no lymphadenopathy noted Chest Common normals: inspection of chest normal Respiratory Common normals: normal respiratory effort, no use of accessory muscles and clear to auscultation bilaterally Cardio Common normals: regular rate and regular rhythm Rate: regular rate Rhythm: regular rhythm GI Common normals: Normal to inspection, nondistended, normoactive bowel sounds present Inspection: normal to inspection Common normals: no CVA tenderness Back & Pelvis Common normals: no CVA tenderness Extremity Common normals: normal to inspection and full ROM General: normal exam except as noted Neuro Common normals: oriented x3 and moves all extremities Psych Common normals: mental status grossly normal, thought process normal and cooperative Results Labs Labs: Short CBC 04/27/23 Range/Units 05:33 WBC 8.4 (4.0-11.0) 10^3/uL Hgb 9.9 L (12.0-16.0) g/dL Hct 31.0 L (36.0-48.0) % Plt Count 161 (150-450) 10^3/uL OB - PN: A/P Plan - Vaginal Delivery day: 2 Plan: discharge home Time Spent with Patient Time: Total time spent is greater than 50% in coordination of care (as documented) at patient's floor/unit and/or counseling patient: Total time spent with greater than 50% in coordination of care (as documented) at patient's floor/unit and/or counseling patient: less than 15 minutes
[2023-04-27] MEDS: DOCUSATE SODIUM 100 MG CAPSULE PO (08:58)
== END 2023-04-27 21:25 | disposition home or self-care (01) | DRG 807 ==
PROVIDERS: Admitting Provider Obstetrics & Gynecology; Visit Provider Obstetrics & Gynecology
DX: O80 Encounter for full-term uncomplicated delivery (principal); Z37.0 Single live birth; Z3A.38 38 weeks gestation of pregnancy
CPT/HCPCS: 36415; 59050; 59410; 80307; 85025; 85027; 86850; 86900; 86901; 96374; 96376; J2590; J2795; J3010

== ENCOUNTER 2023-05-02 14:49 | Outpatient (OUT) | payer BC, SELFPAY ==
--- OUTSIDE RECORDS SUMMARY | 2023-05-02 14:57 | XMS_ITS | CCD ---
Author Name Unknown Address [address] [place] [address] Organization [facility] Care Team Providers Care Pruner Name Role Phone DR REBECA PACE Admitting [...] iron tablet Take by mouth. 0 Active [id number]-hshf-oqojm-un 3 (DUET DHA WITH OMEGA-3) 25 mg iron-1 mg -400 mg combo pack (1 source) xzq524-ojft-otzdn-j m3 (DUET DHA WITH OMEGA-3) 25 mg iron-1 mg -400 mg combo pack Take by mouth. 0 Active ohb259-muvq-cnbmr-mb 3 25 mg iron-1 mg -400 mg combo pack (1 source) fzf718-oess-nqoli-i m3 25 mg iron-1 mg -400 mg [...] 21 to 29on 03-04-2022 . . Normal [facility] Comment on above: Performed By: #### [id number] #### [facility] [address] [address] [address] Anthony Newton Age Gdln ACOG Testing 21- Normal [facility] Comment on above: Performed By: #### [id number] #### [facility] [address] [address] [address] Anthony Newton DIAGNOSIS: Comment [facility] Comment on above: Result Comment: NEGA TIVE FOR INTRAEPITHELIAL LESION OR MALIGNANCY. THIS SPECIMEN WAS RESCREENED PART OF OUR SUPERVISOR ELECTRIC MOTOR TESTING PROGRAM. Performed By: #### [id number] #### [facility] [address] [place] [address] Dr. Anthony Newton Methodology: Comment Normal [facility] Comment on above: Result Comment: This liquid based ThinPrep(R) pap test was screened with the use of an image guided system. Performed By: #### [id number] #### [facility] [address] [place] [address] Dr. Anthony Newton Note: Comment Normal [facility] Comment on above: Result Comment: The Pap smear is a screening test designed to aid in the detection of premalignant and malignant conditions of the uterine cervix. It is not a diagnostic procedure and should not be used as the sole means of detecting cervical cancer. Both false-positive and false-negative reports do occur. . Performed By: #### [id number] #### [facility] [address] [place] [address] Dr. Anthony Newton Performed by: Comment Normal [facility] Comment on above: Result Comment: Lana Connell Clothing Room Supervisor Performed By: #### [id number] #### [facility] [address] [place] [address] Dr. Anthony Newton QC reviewed by: Comment Normal [facility] Comment on above: Result Comment: Shae Maria, Clothing Room Supervisor (ASCP) Performed By: #### [id number] #### [facility] [address] [place] [address] Dr. Anthony Newton Reflex Criteria: Comment Normal [facility] Comment on above: Result Comment: The HPV DNA reflex criteria were not met with this specimen result therefore, no HPV testing was performed. . Performed By: #### 4 [id number] #### [facility] [address] [place] [address] Dr. Anthony Newton Specimen adequacy: Comment Normal [facility] Comment on above: Result Comment: Sati sfactory for evaluation. Endocervical and/or squamous metaplastic cells (endocervical component) are present. Performed By: #### [id number] #### [facility] [address] [place] [address] Dr. Anthony Newton Lab - Toxicology Resultson 0 10-05-2018 Lab - Toxicology Results [id number] [facility] 10-04-2018 Outside Records [id number]#[id number] [facility] T[facility] [place] 10-05-19 Drug Screen Complete Collected [facility] Comment on above: Performed By: #### 1 [id number] #### [facility] (DEFAULT) [address] [place], [place] [id number] ED Clinical Summaryon 2018 ED Clinical Summary [facility] ? Urgent Care [address] [place], [place] [id number] Clinical Summary PERSON INFORMATION Name: FLORINDA, HESHAM MOE Age: 18 Years Sex: FEMALE : 00 MRN: Acct#: Visit Reason: Medical screening exam; PHYSICAL PRE EMPLOYMENT/ RIVERVIEW Arrival: 10/03/18 16:20:33 Discharge: 10/03/18 16:50:00 LOS: 000 00:30 Check In: 10/03/18 16:20:33 Checkout: 10/03/18 16:50:00 Address: [address] [place] [id number] PCP: PROVIDER INFORMATION Provider Role Assigned Unassigned [...] INFORMATION Instructions: Follow-Up: DIAGNOSIS: Patient Understands: Comment: [facility] ED Patient Summaryon 019 ED Patient Summary [facility] ? Urgent Care [address] [place] [address] [id number] PATIENT DISCHARGE INSTRUCTIONS Patient Information Name: FLORINDA, HESHAM PAYAL Age: 18 Years Date of : 00 [facility]: [id number] Reason For Visit: Medical screening exam; PHYSICAL PRE EMPLOYMENT/ RIVERVIEW Arrival Time: 10/03/18 16:20:33 Primary Care Physician: Attending Physician: Paulino Padilla Comment: Patient Education Medication Information: The exam and treatment you received today in the [facility] Emergency Department were for an urgent problem and are not intended as complete care. It is important for you to follow up with a doctor, nurse practitioner, or physician?s customer care assistant for ongoing care. If your symptoms [...] so we can reach you if necessary. [facility] Emergency Department has provided you with a complete list of medications post discharge. Please inform your vocational coordinator/provider of your visit and for further instruction on these medications. Any specific questions regarding your chronic medications and dosages should be discussed with your primary care physician(s) and/or pharmacist. Visit Information Visit Diagnosis: Diagnoses This Visit Medical screening exam ([id number]) If you received any narcotics, sedation, or [...] sign any legal documents Reason for Visit: [place] physical Allergies: Substance Reaction Symptoms Type Comments [...] for Disease Control and Prevention December 2013 [facility] Vital Signs Date Time Vital Sign Value Performing Clinician Faci lity 04-12-2023 15:05-0500 Body height 162.6 cm Daniella Reina MD [facility] 04-12-2023 15:05-0500 Body mass index (BMI) [Ratio] 37.93 kg/m2 Daniella Reina MD [facility] Phone[facility] 04-12-2023 15:05-0500 Body weight 100.25 kg Daniella Reina MD Work Phone[facility] 04-12-2023 15:05-0500 Diastolic blood pressure 76 mm[Hg] Daniella Reina MD [facility] 04-12-2023 15:05-0500 Heart rate 96 /min Daniella Reina MD Work Phone[facility] 04-12-2023 15:05-0500 Systolic blood pressure 115 mm[Hg] Daniella Reina MD Work Phone: [facility] Encounters Encounter Date Encounter Type Care Provider Facility Start: 04-18-2023 End: 04-18-2023 ambulatory LORETTA ROMAN Not Available Start: 04-12-2023 End: 04-12-2023 Office outpatient visit 25 minutes Daniella Reina MD Work Phone: [facility] Comment on above: 35 weeks gestation o [...] DTaP,Tdap and Td Vaccines (6 - Tdap) [facility] Start: 11-09-2025 Screening for malign ant neoplasm of cervix Pap Smear [facility] Start: 04-12-2024 Adult BMI Screening Adult BMI Screen ing [facility] Start: 04-12-2024 Tobacco Screening Tobacco Screening [facility] Start: 11-10-2023 Screening for Chlamy annabella trachomatis Chlamydia Screening [facility] Start: 12-16-2022 COVID-19 Vaccine ( season) COVID-19 Vaccine ( season) [facility] Start: 12-16-2022 Influenza vaccination Influenza Vacc ine [facility] Start: 01-31-2022 Depression Screening Depression Scre ening [facility] Start: 2018 Adult BMI Follow Up Plan Adult BMI Follow Up Plan [facility] Immunizations Immunization Date Immunization Notes Care Provider Fa cility 02-01-2021 influenza virus vacc ine, unspecified formulation Daniella Reina MD Work Phone: [facility] 12-19-2020 diphtheria, tetanus toxoids and pertussis vaccine Daniella Reina MD Work Phone: [facility] 10-29-2019 hepatitis B vaccine, pediatric or pediatric/adolescent dosage Daniella Reina MD Work Phone: [facility] 05-14-2019 hepatitis B vaccine, adult dosage Daniella Reina MD Work Phone: [facility] 04-11-2019 hepatitis B vaccine, pediatric or pediatric/adolescent dosage Daniella Reina MD Work Phone: [facility] 04-11-2019 measles, mumps, rube lla, and varicella virus vaccine Daniella Reina MD Work Phone: [facility] 11-09-2017 meningococcal oligosaccharide (groups A, C, Y and W-135) diphtheria toxoid conjugate vaccine (MCV4O) Daniella Reina MD Work Phone: [facility] 12-08-2004 diphtheria, tetanus toxoids and acellular pertussis vaccine Daniella Reina MD Work Phone: [facility] 12-08-2004 measles, mumps and rubella virus vaccine Daniella Reina MD Work Phone: [facility] 12-08-2004 poliovirus vaccine, inactivated Daniella Reina MD Work Phone: [facility] 09-28-2001 measles, mumps and rubella virus vaccine Daniella Reina MD Work Phone: [facility] Work Phone: 03-23-2001 diphtheria, tetanus toxoids and acellular pertussis vaccine, unspecified formulation Daniella Reina MD Work Phone: [facility] 03-23-2001 haemophilus influenz ae type b conjugate and Hepatitis B vaccine Daniella Reina MD Work Phone: [facility] 03-23-2001 poliovirus vaccine, inactivated Daniella Reina MD Work Phone: [facility] 01-12-2001 diphtheria, tetanus toxoids and acellular pertussis vaccine, unspecified formulation Daniella Reina MD Work Phone: [facility] 01-12-2001 haemophilus influenz ae type b vaccine, HbOC conjugate Daniella Reina MD Work Phone: [facility] 01-12-2001 poliovirus vaccine, inactivated Daniella Reina MD Work Phone: [facility] 2000 diphtheria, tetanus toxoids and acellular pertussis vaccine, unspecified formulation Daniella Reina MD Work Phone: [facility] 2000 haemophilus influenz ae type b conjugate and Hepatitis B vaccine Daniella Reina MD Work Phone: [facility] 2000 poliovirus vaccine, inactivated Daniella Reina MD Work Phone: [facility] 2000 hepatitis B vaccine, pediatric or pediatric/adolescent dosage Daniella Reina MD Work Phone: [facility] NEGATED: Highlighted row has not occurred!04-11-2019 influenza, injectable, quadrivalent, preservative free Daniella Reina MD Work Phone: [facility] Comment on above: Deferred: Patient de cision Payers Date Payer Category Payer Unknown SVITLANA REILLY SS (PPO) [id number] 2022-[facility] [phone] [address] [place] [address] [id number] 2022 Unknown [id number] 2000 Unknown [id number] 2000 Unknown [id number] 2000 Unknown [id number] 2000 Unknown [id number] 2000 Unknown [id number] 1959 Unknown [id number] Social History Date Type Detail Facility Start: [facility]12[facility]2023 [facility] Start: 04-12-2023 Tobacco use and exposure Smokeless tobacco non-user [facility] Start: 04-12-2023 Alcohol intake Lifetime non-d marlyn (finding) [facility] Start: 01-31-2021 End: 04-12-2023 History of Social function [facility] Start: 01-31-2021 End: 04-12-2023 Social connection and isolation panel [facility] Do you belong to any clubs or organizations such as spiritism groups, unions, fraternal or athletic groups, or school groups? No [facility] Are you now , , , , never or living with a partner? Living with partner [facility] How often to you hav e a drink containing alcohol? 2-4 times a month [facility] How many standard drinks containing alcohol do you have on a typical day? 3 or 4 [facility] How often do you hav e 6 or more drinks on 1 occasion? Less than monthly [facility] How hard is it for y ou to pay for the very basics like food, housing, medical care, and heating Not very hard [facility] Adolescent depressio n screening assessment 6 [facility] Do you feel stress - tense, restless, nervous, or anxious, or unable to sleep at night because your mind is troubled all the time - these days [OSQ] Very much [facility] Start: 01-31-2021 Education 21 [facility] Start: 08-21-2022 [facility] Start: 2000 Sex Assigned At Female P [facility] Start: 01-24-2023 Gender identity Identifies as female gender (finding) [facility] Start: 01-24-2023 Sexual orientation Heterosexual (sara sanchez) [facility] NEGATED: Highlighted rowStart: RANDI History of tobacco use [facility] Medical Equipment Procedure Code Equipment Code Equipment Origin al Text Equipment Identifier Dates Check blood suga r 4-5 times daily, fasting and 1 hour after meals. Use as directed. Dispense per insurance preference. [id number] Start: 04-12-2023 1 strip by miscellaneous route in the morning and 1 strip at noon and 1 strip in the evening and 1 strip before bedtime. Check blood sugar 4-5 times daily, fasting and 1 hour after meals. Use as directed. Dispense per insurance preference.. [id number] Start: 04-12-2023 History of Present illness Narrative [...] Drug Allergies CURRENT MEDICATIONS: Current Outpatient Medications: [id number]-pg4 (DUET DHA WITH OMEGA-3) 25 mg iron-1 [...] insurance preference.., Disp: 100 each, Rfl: 1 [id number]-ztiz-lyrnn-iq1 25 mg iron-1 mg -400 mg combo [...] patient is in complete care of her sound technician supervisor. Patient does have ultrasound and office visit scheduled with us. Thank you for allowing me to participate in the care of Hesham Avalos. If there any questions please do not hesitate to contact us. Daniella Reina MD Maternal- Medicine [facility] [address] [place] [address] [facility], the CDC, and other organizations representing maternal and public health professionals recommend that , , and lactating people and those considering receive the COVID-19 vaccination. Vaccination is the best method to reduce maternal and complications of SARS-CoV-2 infection. This document was created with [employer] technology. Though I make every effort to review the dictation as it is transcribed, on occasion the spoken word can be misinterpreted by the technology leading to inappropriate words, phrases, or sentences. This note is addressed to the requesting provider as a consultation for clinical guidance. Specific medical abbreviations are occasionally used and those are generally approved by the [place]?Board of?Obstetrics and?Gynecology?as well as?Scout s abbreviations. The above plan of care was based solely on the diagnoses for which a consultation was requested. ?More frequent testing may be indicated based on her other medical/obstetrical conditions. The management of other or medical conditions is beyond the scope of requested consultation and will continue to be followed by the primary sound technician supervisor or primary care provider. Note to patient: [...] of the practitioner. documented in this encounter [facility] Evaluation note Note Date & Type Note Facility Evaluation note Diagnosis 35 weeks gestation of - Primary Polyhydramnios affecting documented in this encounter [facility] Instructions Note Date & Type Note [...] rosales Referred To Contact Daniella Reina MD [address] [place] [address] Referral ID Status Reason Start Date Expiration Date V isits Requested Visits Authorized [id number] Pending Review 1 1 Referral ID Status Reason Start Date Expiration Date V isits Requested Visits Authorized [id number] Pending Review 1 1 Additional Source Comments INFORMATION SOURCE (unrecogn ized section and content) DATE CREATED AUTHOR 10/05/2018 [facility] DATE CREATED AUTHOR AUTHOR'S ORGANIZ ATION 04/13/2022 [facility] DATE CREATED AUTHOR AUTHOR'S ORGANIZ ATION 04/19/2023 [facility] EPIC Reason for Visit [...] ON THE PRIMARY CLINICAL RECORDS. [facility]. provides no warranty or guarantee of the accuracy or completeness of information in this document.
--- NOTE | 2023-05-02 17:07 | PC.NURSE ---
Shelby and 6 day old daughter, Purvi arrive for follow up. Mom states she woke up and just started eating Baby had been sleepy while in hospital but doing much better now. Usually nurses both breasts at a feed. Mom reports milk in and abundant. VVS and assessment WNL, denies complaints or concerns. States This is so much easier the second time! Purvi assessed and WNL, bili 10.1, weight increase since last weight on 04/29/2023. VVS as well. Baby to breast, mom confident in latch ability and baby settles into feed well. Active nursing for 18 minutes. Releases latch on her own, content. Aware of MOM S group and will call if needed. Leaves ambulatory without concerns.
[2023-05-02 17:12] VITALS: BP 113/77; PULSE 94; RESP 16; TEMP 37; O2SAT 97
== END 2023-05-02 16:10 | disposition home or self-care (01) ==
LOC: FBCO 14:51
PROVIDERS: Visit Provider Obstetrics & Gynecology
DX: Z39.2 Encounter for routine postpartum follow-up (principal)

== ENCOUNTER 2023-11-21 19:39 | Outpatient (REF) | payer BC, SELFPAY ==
--- OUTSIDE RECORDS SUMMARY | 2023-11-21 19:44 | XMS_ITS ---
Patient Summarization (C-CDA 2.1 CCD) Created on: November 21, 2023 Tyshawn ACHARYA : 2000 Sex: Female Author Organization Sample organization Care Team Providers Care Radio Commentator Name Role Phone DR REBECA PACE Admitting Unavailable DR REBECA PACE Attending Unavailable MISC, DR HENDERSON Primary Care Unavailable SANJEEV, DR JOSE Consulting Unavailable Unavailable Primary Care Provider Nancy Ortiz MD, Taisha Primary Care Provider KATHIE ROMAN Attending Unavailable KATHIE ROMAN Attending Unavailable STEPHANIE SOTELO Attending Unavailab le KATHIE ROMAN Attending Unavailable REBECA PACE Attending Unavailable KATHIE ROMAN Attending Unavailable Encounters Encounter Date Encounter Type Care Provider Facility Start: 06-07-2023 End: 06-07-2023 ambulatory KATHIE ROMAN Not Available Start: 05-24-2023 End: 05-24-2023 ambulatory STEPHANIE SOTELO Not Available Start: 05-24-2023 Bamboo flowsheet Stephanie Wharton zpatrick BUILD AND DEPLOYMENT ENGINEER Work Phone: [facility] Start: 05-24-2023 Bamboo flowsheet Stephanie Wharton zpatrick BUILD AND DEPLOYMENT ENGINEER Work Phone: [facility] Start: 05-24-2023 End: 05-24-2023 Patient encounter status Stephanie Whitlocktrick BUILD AND DEPLOYMENT ENGINEER Work Phone: [facility] Work Phone: Start: 05-24-2023 End: 05-24-2023 Periodic preventive med est patient 18-39 yrs Stephanie Cortésk BUILD AND DEPLOYMENT ENGINEER Work Phone: [facility] Comment on above: Encounter for wellne ss examination (Primary Dx); Anemia, unspecified type Start: 04-18-2023 End: 04-18-2023 ambulatory KATHIE ROMAN Not Available Start: 04-12-2023 End: 04-12-2023 Office outpatient visit 25 minutes Daniella Reina MD Work Phone: [facility] Comment on above: 35 weeks gestation o f (Primary Dx); Polyhydramnios affecting Start: 04-12-2023 End: 04-12-2023 ambulatory KATHIE ROMAN Not Available Start: 03-30-2023 End: 03-30-2023 ambulatory KATHIE ROMAN Not Available Start: 03-16-2023 End: 03-16-2023 ambulatory REBECA PACE Not Available Start: 02-24-2022 End: 02-24-[address] REBECA PACE Facility: Medical Equipment Procedure Code Equipment Code Equipment Origin al Text Equipment Identifier Dates Check blood suga r 4-5 times daily, fasting and 1 hour after meals. Use as directed. Dispense per insurance preference. [id number] Start: 04-12-2023 1 strip by miscellaneous route in the morning and 1 strip at noon and 1 strip in the evening and 1 strip before bedtime. Check blood sugar 4-5 times daily, fasting and 1 hour after meals. Use as directed. Dispense per insurance preference.. [id number] Start: 04-12-2023 Immunizations Immunization Date Immunization Notes Care Provider [facility] 02-01-2021 Seasonal, quadrivale nt, recombinant, injectable influenza vaccine, preservative free Stephanie Sotelo NP Work Phone: [facility] 02-01-2021 influenza virus vaccine, unspecified formulation Daniella Reina MD Work Phone: [facility] 12-19-2020 diphtheria, tetanus toxoids and pertussis vaccine Daniella Reina MD Work Phone: [facility] 10-29-2019 hepatitis B vaccine, pediatric or pediatric/adolescent dosage Daniella Reina MD Work Phone: [facility] 05-14-2019 hepatitis B vaccine, adult dosage Daniella Reina MD Work Phone: [facility] 04-11-2019 hepatitis B vaccine, pediatric or pediatric/adolescent dosage Daniella Reina MD Work Phone: [facility] 04-11-2019 measles, mumps, rubella, and varicella virus vaccine Daniella Reina MD Work Phone: [facility] 11-09-2017 meningococcal oligosaccharide (groups A, C, Y and W-135) diphtheria toxoid conjugate vaccine (MCV4O) Daniella Reina MD Work Phone: [facility] 12-08-2004 diphtheria, tetanus toxoids and acellular pertussis vaccine Daniella Reina MD Work Phone: [facility] 12-08-2004 measles, mumps and rubella virus vaccine Daniella Reina MD Work Phone: [facility] 12-08-2004 poliovirus vaccine, inactivated Daniella Reina MD Work Phone: [facility] 09-28-2001 measles, mumps and rubella virus vaccine Daniella Reina MD Work Phone: [facility] Work Phone: 03-23-2001 diphtheria, tetanus toxoids and acellular pertussis vaccine, unspecified formulation Daniella Reina MD Work Phone: [facility] 03-23-2001 haemophilus influenz ae type b conjugate and Hepatitis B vaccine Daniella Reina MD Work Phone: [facility] 03-23-2001 poliovirus vaccine, inactivated Daniella Reina MD Work Phone: [facility] 01-12-2001 diphtheria, tetanus toxoids and acellular pertussis vaccine, unspecified formulation Daniella Reina MD Work Phone: [facility] 01-12-2001 haemophilus influenz ae type b vaccine, HbOC conjugate Daniella Reina MD Work Phone: [facility] 01-12-2001 poliovirus vaccine, inactivated Daniella Reina MD Work Phone: [facility] 2000 diphtheria, tetanus toxoids and acellular pertussis vaccine, unspecified formulation Daniella Reina MD Work Phone: [facility] 2000 haemophilus influenz ae type b conjugate and Hepatitis B vaccine Daniella Reina MD Work Phone: [facility] 2000 poliovirus vaccine, inactivated Daniella Reina MD Work Phone: [facility] 2000 hepatitis B vaccine, pediatric or pediatric/adolescent dosage Daniella Reina MD Work Phone: [facility] NEGATED: Highlighted row has not occurred!04-11-2019 influenza, injectable, quadrivalent, preservative free Daniella Reina MD Work Phone: [facility] Comment on above: Deferred: Patient de cision Medications Current Medications Medication Drug Class(es) Dates [...] iron tablet Take by mouth. 0 Active Fquzau-TeGosg-Mwshc- FA-[place] 3 (Duet DHA 400) 25-1 & 400 MG misc (2 sources) Xtxobz-KoVcyl-Jd red -FA-[place] 3 (Duet DHA 400) 25-1 & 400 MG misc Take by mouth. 0 Active fpq744-ongv-uixat-ey 3 (DUET DHA WITH OMEGA-3) 25 mg iron-1 mg -400 mg combo pack (1 source) btn915-xpgb-kvtih-p m3 (DUET DHA WITH OMEGA-3) 25 mg iron-1 mg -400 mg combo pack Take by mouth. 0 Active llm251-hkqe-tvaim-px 3 25 mg iron-1 mg -400 mg combo pack (1 source) slu285-pvwc-dzwqx-g m3 25 mg iron-1 mg -400 mg combo pack Take by mouth. 0 Active Payers Date Payer Category Payer Unknown [id number] 2022 Unknown [id number] 2000 Unknown [id number] 2000 Unknown [id number] [id number] 2000 Unknown [id number] 2.16.84 [id number] 2000 Unknown [id number] 2000 Unknown [id number] 2000 Unknown [id number] 2000 Unknown [id number] 1959 Unknown [id number] Plan of Treatment Date Care Activity Detail Author Start: 12-19-2030 DTaP,Tdap and Td Vaccines (6 - Tdap) DTaP,Tdap and Td Vaccines (6 - Tdap) [facility] Start: 11-09-2025 Screening for malign ant neoplasm of cervix Pap Smear [facility] Start: 04-12-2024 Adult BMI Screening Adult BMI Screen ing [facility] Start: 04-12-2024 Tobacco Screening Tobacco Screening [facility] Start: 11-10-2023 Screening for Chlamy annabella trachomatis Chlamydia Screening [facility] Start: 10-15-2023 Influenza vaccination Influenza Vacc ine (#1) [facility] Comment on above: Postponed from 12/16 (Patient Refused) Start: 06-07-2023 End: 06-07-2023 ambulatory 06/07/2023 10:30 AM EST Visit [facility] [address] [place] [id number] Kathie Roman PA [address] [place], [place] [id number] [facility] Start: 05-24-2023 End: 05-24-2024 CBC W Auto Differential panel - Blood CBC and differential Lab Routine Encounter for wellness examination Anemia, unspecified type Expected: 05/24/2023 (Approximate), Expires: 05/24/2024 [facility] Comment on above: Expected: 05/24/2023 (Approximate), Expires: 05/24/2024 Start: 05-24-2023 End: 05-24-2024 Comprehensive metabolic 2000 panel - Serum or Plasma Comprehensive metabolic panel Lab Routine Encounter for wellness examination Anemia, unspecified type Expected: 05/24/2023 (Approximate), Expires: 05/24/2024 [facility] Work Phone: Comment on above: Expected: 05/24/2023 (Approximate), Expires: 05/24/2024 Start: 12-16-2022 COVID-19 Vaccine () COVID-19 Vaccine () [facility] Start: 12-16-2022 Influenza vaccination P [facility] Start: 01-31-2022 Depression Screening Depression Scre [facility] Start: 2018 Adult BMI Follow Up Plan Adult BMI Follow Up Plan [facility] Problems Active Problems Problem Classification Problem Date Documented Date Episodic/Chronic Deficiency and other anemia (1 source) Anemia; Translations: [Anemia, unspecified] 05-24-2023 Episodic Immunizations and screening for infectious disease (1 source) Encounter for screening for human papillomavirus (HPV); Translations: [ENC SCREENING HUMAN PAPILLOMAVIRUS] Onset: 02-27-2022 Episodic Other complications of (2 sources) Maternal obesity complicating , childbirth and the [...] [35 weeks gestation of ] 04-12-2023 Episodic Past or Other Problems Problem Classification Problem Date Documented Da te Episodic/Chronic Hemorrhage during ; abruptio placenta; placenta previa (1 source) Placenta previa; Translations: [Complete placenta previa NOS or without hemorrhage, second trimester] Onset: 01-27-2023 Resolved: 04-12-2023 04-12-2023 Episodic Mood disorders (1 source) Mood disorders Onset: 01-31-2021 01-31-2021 Umbilical cord complication (3 sources) Velamentous insertion of umbilical cord; Translations: [Velamentous insertion of umbilical cord, second trimester] Onset: 01-27-2023 Resolved: 04-12-2023 01-27-2023 Episodic Procedures Date Procedure Procedure Detail Performing Clinician Start: 11-09-2022 Microscopic observat ion [Identifier] in Cervix by Cyto stain Daniella Reina MD Work Phone: Start: 01-31-2021 Adult depression scr eening assessment Daniella Reina MD Work Phone: Results Test Name Value Interpretation Reference Range Facil ity PAP ACOG PANEL 2: 21 to 29on 03-04-2022 . . [facility] Comment on above: Performed By: #### [id number] #### [facility] [address] [place] [address] Dr. Anthony Newton Age Gdln ACOG Testing 21-[address] [facility] Comment on above: Performed By: #### [id number] #### [facility] [address] [address] [address] Anthony Newton DIAGNOSIS: Comment [facility] Comment on above: Result Comment: NEGA TIVE FOR INTRAEPITHELIAL LESION OR MALIGNANCY. THIS SPECIMEN WAS RESCREENED PART OF OUR ENVIRONMENTAL HEALTH PHYSICIAN PROGRAM. Performed By: #### [id number] #### [facility] [address] [place] [address] Dr. Anthony Newton Methodology: Comment [facility] Comment on above: Result Comment: This liquid based ThinPrep(R) pap test was screened with the use of an image guided system. Performed By: #### [id number] #### [facility] [address] [place] [address] Dr. Anthony Newton Note: Comment [facility] Comment on above: Result Comment: The Pap smear is a screening test designed to aid in the detection of premalignant and malignant conditions of the uterine cervix. It is not a diagnostic procedure and should not be used as the sole means of detecting cervical cancer. Both false-positive and false-negative reports do occur. . Performed By: #### [id number] #### [facility] [address] [place] [address] Dr. Anthony Newton Performed by: Comment Normal [facility] Comment on above: Result Comment: Lana Connell Finish Photographer Performed By: #### [id number] #### [facility] [address] [place] [address] Dr. Anthony Newton QC reviewed by: Comment Normal [facility] Comment on above: Result Comment: Shae Maria, Finish Photographer (ASCP) Performed By: #### [id number] #### [facility] [address] [place] [address] Dr. Anthony Newton Reflex Criteria: Comment [facility] Comment on above: Result Comment: The HPV DNA reflex criteria were not met with this specimen result therefore, no HPV testing was performed. . Performed By: #### [id number] #### [facility] [address] [place] [address] Dr. Anthony Newton Specimen adequacy: Comment Normal [facility] Comment on above: Result Comment: Sati sfactory for evaluation. Endocervical and/or squamous metaplastic cells (endocervical component) are present. Performed By: #### 4 [id number] #### [facility] [address] [place] [address] Dr. Anthony Newton Lab - Toxicology Resultson 0 10-05-2018 Lab - Toxicology Results [id number] [facility] Outside Recordson 10-04-2018 Outside Records [id number] OTGTIFF [facility] Triage Industrialon 10-05-19 Drug Screen Complete Collected [facility] Comment on above: Performed By: #### [id number] #### [facility] (DEFAULT) [address] [place] [id number] ED Clinical Summaryon 2018 ED Clinical Summary [facility] ? Urgent Care [address] [place] [address] Clinical Summary PERSON INFORMATION Name: HESHAM NEELY Age: 18 Years Sex: FEMALE : 00 MRN: Acct#: Visit Reason: Medical screening exam; PHYSICAL PRE EMPLOYMENT/ [employer] Arrival: 10/03/18 16:20:33 Discharge: 10/03/18 16:50:00 LOS: 000 00:30 Check In: 10/03/18 16:20:33 Checkout: 10/03/18 16:50:00 Address: [address] [place] [id number] PCP: PROVIDER INFORMATION Provider Role Assigned Unassigned Holden Gaitan PA-C ED PA 10/03/18 16:37:26 Sage COSBY, Larry ED Nurse 10/03/18 16:38:28 VITALS INFORMATION [...] DIAGNOSIS: Patient Understands: Comment: [facility] ED Patient Summaryon 019 ED Patient Summary [facility] ? Urgent Care [address] [place] [address] PATIENT DISCHARGE INSTRUCTIONS Patient Information Name: HESHAM NEELY Age: 18 Years Date of : 00 Reason For Visit: Medical screening exam; PHYSICAL PRE EMPLOYMENT/ [employer] Arrival Time: 10/03/18 16:20:33 Primary Care Physician: Attending Physician: Paulino Padilla Comment: Patient Education Medication Information: The exam and treatment you received today in the [facility] Emergency Department were for an urgent problem and are not intended as complete care. It is important for you to follow up with a doctor, nurse practitioner, or physician?s legal support assistant for ongoing care. If your symptoms [...] so we can reach you if necessary. [facility] Emergency Department has provided you with a complete list of medications post discharge. Please inform your dog trainer/provider of your visit and for further instruction on these medications. Any specific questions regarding your chronic medications and dosages should be discussed with your primary care physician(s) and/or pharmacist. Visit Information Visit Diagnosis: Diagnoses This Visit Medical screening exam ([id number]) If you received any narcotics, sedation, or [...] sign any legal documents Reason for Visit: [place] physical Allergies: Substance Reaction Symptoms Type Comments [...] and Prevention December 2013 [facility] Social History Date Type Detail Facility Start: 05-24-2023 Alcohol intake Ex-drinker (finding) [facility] Start: 11-08-2022 End: 04-12-2023 Tobacco smoking status NHIS Never smoked tobacco [facility] Start: 11-08-2022 End: 04-12-2023 Tobacco use and exposure Smokeless tobacco non-user [facility] Start: 04-12-2023 End: 04-18-2023 Alcohol intake Lifetime non-drinker (finding) [facility] Start: 10-07-2022 Gender identity Identifies as female gender (finding) [facility] Start: 10-07-2022 Sexual orientation Heterosexual (fin ding) [facility] Start: 08-15-2022 [facility] Start: 01-31-2021 End: 05-17-2023 History of Social function [facility] Start: 01-31-2021 End: 05-17-2023 Social connection and isolation panel [facility] Start: 01-31-2021 Education 21 [facility] Start: 2000 Sex Assigned At Female P [facility] Do you belong to any clubs or organizations such as religious groups, unions, fraternal or athletic groups, or school groups? No [facility] Are you now , , , , never or living with a partner? Living with partner [facility] How often to you hav e a drink containing alcohol? 2-4 times a month [facility] How many standard drinks containing alcohol do you have on a typical day? 3 or 4 [facility] How often do you hav e 6 or more drinks on 1 occasion? Less than monthly [facility] How hard is it for y ou to pay for the very basics like food, housing, medical care, and heating Not very hard [facility] Adolescent depressio n screening assessment 6 [facility] Do you feel stress - tense, restless, nervous, or anxious, or unable to sleep at night because your mind is troubled all the time - these days [OSQ] Very much [facility] Are you now , , , , never or living with a partner? [facility] Do you feel stress - tense, restless, nervous, or anxious, or unable to sleep at night because your mind is troubled all the time - these days [OSQ] Not at all [facility] (I/We) worried wheth er (my/our) food would run out before (I/we) got money to buy more. Never true [facility] NEGATED: Highlighted rowStart: NINF History of tobacco use Passive smoker [facility] Vital Signs Date Time Vital Sign Value Performing Clinician Sole rodriguez 05-24-2023 14:05-0500 Body height 162.6 cm Stephanie Sotelo NP Work Phone: [facility] 05-24-2023 14:05-0500 Body mass index (BMI) [Ratio] 34.57 kg/m2 Stephanie Sotelo BUILD AND DEPLOYMENT ENGINEER Work Phone: [facility] 05-24-2023 14:05-0500 Body weight 91.35 kg Stephanie Sotelo BUILD AND DEPLOYMENT ENGINEER Work Phone: [facility] 05-24-2023 14:05-0500 Diastolic blood pressure 74 mm[Hg] Stephanie Sotelo BUILD AND DEPLOYMENT ENGINEER Work Phone: [facility] 05-24-2023 14:05-0500 Heart rate 63 /min Stephanie Sotelo BUILD AND DEPLOYMENT ENGINEER Work Phone: [facility] 05-24-2023 14:05-0500 Respiratory rate 20 /min Stephanie Ashleigh BUILD AND DEPLOYMENT ENGINEER Work Phone: [facility] 05-24-2023 14:05-0500 SaO2% (BldA) [Mass fraction] 96 % Stephanie Ashleigh BUILD AND DEPLOYMENT ENGINEER Work Phone: [facility] 05-24-2023 14:05-0500 Systolic blood pressure 138 mm[Hg] Stephanie Ashleigh BUILD AND DEPLOYMENT ENGINEER Work Phone: [facility] 04-12-2023 15:05-0500 Body height 162.6 cm Daniella Reina MD Work Phone: [facility] 04-12-2023 15:05-0500 Body mass index (BMI) [Ratio] 37.93 kg/m2 Daniella Reina MD Work Phone: [facility] 04-12-2023 15:05-0500 Body weight 100.25 kg Daniella Reina MD Work Phone: [facility] 04-12-2023 15:05-0500 Diastolic blood pressure 76 mm[Hg] Daniella Reina MD Work Phone: [facility] 04-12-2023 15:05-0500 Heart rate 96 /min Daniella Reina MD Work Phone: [facility] 04-12-2023 15:05-0500 Systolic blood pressure 115 mm[Hg] Daniella Reina MD Work Phone: [facility] History of Present illness Narrative 05-24-2023 Stephanie Sotelo, BUILD AND DEPLOYMENT ENGINEER - 05/24/2023 2:00 PM EST Note Date & Type Note Facility 05-24-2023 History of Presen t illness Narrative Hesham Avalos is a 22 y.o. female presents with chief complaint of Establish Care HPI: Patient presents today for BUILD AND DEPLOYMENT ENGINEER appointment- to establish care with new provider. SUBJECTIVE: MEDICATIONS: Current Outpatient Medications Medication Instructions Knhzdh-AdQzgb-Rwvem-FA-[place] 3 (Duet DHA 400) 25-1 & 400 MG misc Oral ALLERGIES: No Known Allergies SURGICAL HISTORY: Past Surgical History: Procedure Laterality Date MOUTH SURGERY 2018 MYRINGOTOMY W/ TUBES 2003 FAMILY HISTORY: Family History Problem Relation Name Age of Onset Hypertension Maternal Grandmother Fior Diabetes Maternal Grandmother Fior Cancer Maternal Grandfather Cancer Paternal Grandfather Rajat SOCIAL HISTORY: Social History Tobacco Use Smoking status: Never Smokeless tobacco: Never Substance Use Topics Alcohol use: Not Currently Drug use: Never Depression: Not at risk (05/24/2023) PHQ-2 PHQ-2 Score: 0 REVIEW OF SYMPTOMS: Review of Systems Constitutional: Negative. HENT: Negative. Eyes: Negative. Respiratory: Negative. Cardiovascular: Negative. Gastrointestinal: Negative. Genitourinary: Negative. Musculoskeletal: Negative. Skin: Negative. Neurological: Negative. Psychiatric/Behavioral: Negative. Hematological: Negative. Endocrine: Negative. Allergic/Immunologic: Negative. OBJECTIVE: Visit Vitals BP 138/74 (BP Location: Left arm, Patient Position: Sitting, BP Cuff Size: Large adult) Pulse 63 Resp 20 Ht 5' 4 Wt 201 lb 6.4 oz SpO2 96% BMI 34.57 kg/m OB Status Smoking Status Never BSA 2.03 m Physical Exam Vitals reviewed. Constitutional: Appearance: Normal appearance. HENT: Head: Normocephalic. Right Ear: Hearing and tympanic membrane normal. Left Ear: Hearing and tympanic membrane normal. Nose: Nose normal. Right Turbinates: Not enlarged. Left Turbinates: Not enlarged. Right Sinus: No maxillary sinus tenderness or frontal sinus tenderness. Left Sinus: No maxillary sinus tenderness or frontal sinus tenderness. Mouth/Throat: Lips: [place]. Mouth: Mucous membranes are moist. Pharynx: Oropharynx is clear. Uvula midline. Tonsils: No tonsillar exudate. Eyes: General: Lids are normal. Vision grossly intact. Gaze aligned appropriately. Extraocular Movements: Extraocular movements intact. Conjunctiva/sclera: Conjunctivae normal. Neck: Thyroid: No thyroid mass or thyromegaly. Vascular: No carotid bruit. Trachea: Trachea normal. Cardiovascular: Rate and Rhythm: Normal rate and regular rhythm. Pulses: Normal pulses. Heart sounds: Normal heart sounds. Pulmonary: Effort: Pulmonary effort is normal. Breath sounds: Normal breath sounds and air entry. Abdominal: General: Abdomen is flat. Bowel sounds are normal. Palpations: Abdomen is soft. Musculoskeletal: Cervical back: Full passive range of motion without pain, normal range of motion and neck supple. Lymphadenopathy: Cervical: No cervical adenopathy. Skin: General: Skin is warm. Capillary Refill: Capillary refill takes less than 2 seconds. Neurological: Mental Status: She is alert and oriented to person, place, and time. Sensory: Sensation is intact. Motor: Motor function is intact. Coordination: Coordination is intact. Psychiatric: Attention and Perception: Attention and perception normal. Mood and Affect: Mood and affect normal. Speech: Speech normal. Behavior: Behavior is cooperative. Thought Content: Thought content normal. ASSESSMENT AND PLAN: Assessment/Plan Diagnoses and all orders for this visit: Encounter for wellness examination - Comprehensive metabolic panel; Future - CBC and differential; Future Wellness performed at today. Height, weight, BMI, problem list, and immunizations records reviewed. Dental care discussed with patient. Anemia, unspecified type - Comprehensive metabolic panel; Future - CBC and differential; Future Await results. No follow-ups on file. documented in this encounter [facility] History of Present illness Narrative 04-12-2023 Daphne [...] Drug Allergies CURRENT MEDICATIONS: Current Outpatient Medications: [id number] (DUET DHA WITH OMEGA-3) 25 mg iron-1 [...] insurance preference.., Disp: 100 each, Rfl: 1 [id number] 25 mg iron-1 mg -400 mg combo [...] patient is in complete care of her android framework developer. Patient does have ultrasound and office visit scheduled with us. Thank you for allowing me to participate in the care of Hesham Sonya Avalos. If there any questions please do not hesitate to contact us. Daniella Reina MD Maternal- Medicine [facility] [address] [facility] [address] [place] [address] [facility], the CDC, and other organizations representing maternal and public health professionals recommend that , , and lactating people and those considering receive the COVID-19 vaccination. Vaccination is the best method to reduce maternal and complications of SARS-CoV-2 infection. This document was created with [employer] technology. Though I make every effort to review the dictation as it is transcribed, on occasion the spoken word can be misinterpreted by the technology leading to inappropriate words, phrases, or sentences. This note is addressed to the requesting provider as a consultation for clinical guidance. Specific medical abbreviations are occasionally used and those are generally approved by the [place]?Board of?Obstetrics and?Gynecology?as well as?[employer] abbreviations. The above plan of care was based solely on the diagnoses for which a consultation was requested. ?More frequent testing may be indicated based on her other medical/obstetrical conditions. The management of other or medical conditions is beyond the scope of requested consultation and will continue to be followed by the primary android framework developer or primary care provider. Note to patient: The Century Cures Act makes medical notes like these [...] of the practitioner. documented in this encounter [facility] Evaluation note Note Date & Type Note Facility Evaluation note Diagnosis 35 weeks gestation of - Primary Polyhydramnios affecting documented in this encounter [facility] Evaluation note Note Date & Type Note Facility Evaluation note Diagnosis Encounter for wellness examination- Primary Anemia, unspecified type documented in this encounter [facility] Instructions Note Date & Type Note Facility [...] rosales Referred To Contact Daniella Reina MD [address] [place] [address] Referral ID Status Reason Start Date Expiration Date V isits Requested Visits Authorized [id number] Pending Review 1 1 Referral ID Status Reason Start Date Expiration Date V isits Requested Visits Authorized [id number] Pending Review 1 1 Additional Source Comments INFORMATION SOURCE (unrecogn ized section and content) DATE CREATED AUTHOR 10/05/2018 [facility] DATE CREATED AUTHOR AUTHOR'S ORGANIZ ATION 04/13/2022 [facility] DATE CREATED AUTHOR AUTHOR'S ORGANIZ ATION 06/14/2023 [facility] EPIC Reason for Visit (unrecogniz ed section and content) Reason Comments 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 [employer] provides no warranty or guarantee of the accuracy or completeness of information in this document.
== END 2023-11-21 19:40 | disposition home or self-care (01) ==
LOC: LAB 19:39
PROVIDERS: Visit Provider Obstetrics & Gynecology
DX: Z01.419 Encounter for gynecological examination (general) (routine) without abnormal findings (principal)
CPT/HCPCS: 87624; 88175

== ENCOUNTER 2024-07-08 13:36 | Outpatient (OUT) | payer BC, SELFPAY ==
[2024-07-08 14:05] LABS: BOX Test Reference Lab UNITY; BOX Test Sent Out UNITY
[2024-07-08 14:12] LABS: Basophils Percent Auto 0.3 % (0.2-2.0); Eosinophils Percent Auto 0.3 % (0.9-7.0); Hemoglobin 12.4 g/dL (12.0-16.0); Immature Granulocytes Abs Auto 0.02 10^3/uL (0.00-0.03); Immature Granulocytes Pct Auto 0.2 % (0.0-0.5); Lymphocytes Absolute Auto 1.6 10^3/uL (1.2-3.8); Lymphocytes Percent Auto 18.1 % (20.5-60.0); Mean Corpuscular HGB Conc 33.5 g/dL (29.9-35.2); Mean Corpuscular Hemoglobin 30.5 pg (26.7-34.0); Mean Corpuscular Volume 91.1 fL (81.0-99.0); Mean Platelet Volume 10.4 fL (9.5-13.5); Monocytes Absolute Auto 0.5 10^3/uL (0.3-0.8); Monocytes Percent Auto 5.9 % (1.7-12.0); Neutrophils Absolute Auto 6.5 10^3/uL (1.4-6.5); Neutrophils Percent Auto 75.2 % (43.0-75.0); Platelet Count 256 10^3/uL (150-450); Red Blood Count 4.06 10^6/uL (4.20-5.40); Red Cell Distribution Width 13.2 % (11.0-15.0); White Blood Count 8.6 10^3/uL (4.0-11.0)
[2024-07-08 14:35] LABS: Estimated Average Glucose 91 mg/dL; Glycohemoglobin A1C 4.8 % (4.5-6.2)
[2024-07-09 04:08] LABS: Rubella Antibodies, IgG 2.47 index (Immune >0.99)
[2024-07-09 05:07] LABS: HCV Ab Non Reactive (Non Reactive); HIV Ab/p24 Ag Screen Non Reactive (Non Reactive)
[2024-07-09 06:08] LABS: HBsAg Screen Negative (Negative)
[2024-07-09 12:10] LABS: Rapid Plasma Reagin, Quant Non Reactive titer (NonRea<1:1)
== END 2024-07-08 13:37 | disposition home or self-care (01) ==
LOC: LAB 13:38
PROVIDERS: Visit Provider Obstetrics & Gynecology
DX: Z34.01 Encounter for supervision of normal first pregnancy, first trimester (principal); Z36.0 Encounter for antenatal screening for chromosomal anomalies; N92.6 Irregular menstruation, unspecified
CPT/HCPCS: 36415; 80307; 83036; 85025; 86592; 86762; 86803; 86850; 86900; 86901; 87086; 87340; 87389

== ENCOUNTER 2024-09-18 07:29 | Outpatient (OUT) | payer BC, SELFPAY ==
--- OUTSIDE RECORDS SUMMARY | 2024-09-18 07:34 | XMS_ITS | CCD ---
Author Organization [facility] Inform ion Partnership [facility] Care Team Providers Care History Card Clerk Name Role Phone DR REBECA HIDALGO Admitting Unavailable DR REBECA HIDALGO Attending Unavailable MISC, DR HENDERSON Primary Care Unavailable DR REBECA HIDALGO Consulting Unavailable Taisha Ortiz MD Primary Care Provider Unavailable Primary Care Provider Unavailabl e Unavailable Primary Care Provider Unavailabl e Darin RICHARD Attending Unavailable Darin RICHARD Attending Unavailable Rebeca HIDALGO Referring Unavailable REBECA HIDALGO Attending Unavailable REBECA HIDALGO Attending Unavailable REBECA HIDALGO Attending Unavailable Medications Current Medications Medication Drug Class(es) Dates Sig (Normalized) Sig (Original) blood-glucose meter misc (2 sources) Start: 04-12-2023 blood-glucose meter misc Check blood sugar 4-5 times daily, fasting and 1 hour after meals. Use as directed. Dispense per insurance preference. 1 each 04/12/2023 Active Start: 04-12-2023 blood-glucose meter misc Check blood sugar 4-5 times daily, fasting and 1 hour after meals. Use as directed. Dispense per insurance preference. 1 each 0 04/12/2023 Active ferrous gluconate (6 sources) take 1 dose by mouth once daily Ferrous Gluconate (IRON 27 PO) Take 1 each by mouth Daily Active ferrous sulfate 134 mg oral tablet (2 sources) ferrous sulfate (HIGH POTENCY IRON) 27 mg iron tablet Take by mouth. Active Swdesg-QdDbbf-Dqauk-FA-Seltzer 3 (Duet DHA 400) 25-1 & 400 MG misc (2 sources) Fjmwxe-AcCbek-Pt jri-NO-Vcvbj 3 (Duet DHA 400) 25-1 & 400 MG misc Take by mouth. 0 Active Ebqfqsdt-Onc-Gc-FA (PRE- PO) (6 sources) take 1 dose by mouth once daily Chhmuxau-Otu-Ff-FA (PRE-SIGIFREDO PO) Take 1 each by mouth Daily Active zvb213-svar-ioaqz-uo6 (DUET DHA WITH OMEGA-3) 25 mg iron-1 mg -400 mg combo pack (2 sources) wch543-iant-bpfck-ue6 (DUET DHA WITH OMEGA-3) 25 mg iron-1 mg -400 mg combo pack Take by mouth. Active jab801- zpte-rxjwj-ll4 (DUET DHA WITH OMEGA-3) 25 mg iron-1 mg -400 mg combo pack Take by mouth. 0 Active iwd347-sqsi-dlshb-e m3 25 mg iron-1 mg -400 mg combo pack (2 sources) qjf002- bwel-vzmzo-vg1 25 mg iron-1 mg -400 mg combo pack Take by mouth. Active sdo926- utta-gevac-xj3 25 mg iron-1 mg -400 mg combo pack Take by mouth. 0 Active Problems Active Problems Problem Classification Problem Date Documented Date Episodic/Chronic Deficiency and other anemia (1 source) Anemia; Translations: [Anemia, unspecified] 05-24-2023 Episodic Immunizations and screening for infectious disease (1 source) Encounter for screening for human papillomavirus (HPV); Translations: [ENC SCREENING HUMAN PAPILLOMAVIRUS] Onset: 02-27-2022 Episodic Other diseases of bladder and urethra (1 source) Urethral cyst; Translations: [Other specified disorders of urethra] 07-23-2024 Episodic Other female genital disorders (1 source) Vaginal discharge; Translations: [Other specified noninflammatory disorders of vagina] 07-23-2024 Episodic Other and delivery including normal (3 sources) First trimester ; Translations: [Encounter for supervision of normal , unspecified, first trimester] 07-23-2024 Episodic Other screening for suspected conditions (not mental disorders or infectious disease) (6 sources) Encounter for screening for malignant neoplasm of cervix; Translations: [Patient encounter status] Onset: 02-24-2022 Episodic Residual codes; unclassified (1 source) Gestation period, 11 weeks; Translations: [11 weeks gestation of ] 07-23-2024 Episodic Residual codes; unclassified (1 source) H/O: Disorder; Translations: [Personal history of other complications of , childbirth and the puerperium] 07-23-2024 Episodic Residual codes; unclassified (2 sources) Gestation period, 15 weeks; Translations: [15 weeks gestation of ] 08-20-2024 Episodic Past or Other Problems Problem Classification Problem Date Documented Da te Episodic/Chronic Hemorrhage during ; abruptio placenta; placenta previa (2 sources) Placenta previa; Translations: [Complete placenta previa NOS or without hemorrhage, second trimester] Onset: 01-27-2023 Resolved: 04-12-2023 04-12-2023 Episodic Mood disorders (2 sources) Mood disorders Onset: 01-31-2021 01-31-2021 Other complications of (9 sources) Maternal obesity complicating , childbirth and the puerperium, antepartum; Translations: [Obesity complicating , second trimester] Onset: 01-27-2023 Resolved: 04-25-2023 05-24-2023 Chronic Polyhydramnios and other problems of amniotic cavity (1 source) Polyhydramnios; Translations: [Polyhydramnios, unspecified trimester, not applicable or unspecified] 04-12-2023 Episodic Residual codes; unclassified (1 source) Gestation period, 35 weeks; Translations: [35 weeks gestation of ] 04-12-2023 Episodic Umbilical cord complication (11 sources) Velamentous insertion of umbilical cord; Translations: [Velamentous insertion of umbilical cord, second trimester] Onset: 01-27-2023 Resolved: 04-25-2023 05-24-2023 Episodic NEGATED: Highlighted row has been ruled out!Unclassified (6 sources) No known active problems 05-24-2023 Results Test Name Value Interpretation Reference Range Facility Urinalysis macro (dipstick) panel (U)on 08-20-2024 Bilirubin, UA Positive Negative - 4(70) +++ mg/dL [facility] Comment on above: small Blood, UA Negative Negative - 50 Eulogio/mcL [facility] Clarity, UA Clear [facility] Color, UA Yellow [facility] Glucose, UA Negative Negative - 2000(110) ++++ mg/dL [facility] Interpretation and review of laboratory results Abnormal [facility] Ketones, UA Positive Negative - 160(16) ++++ mg/dL [facility] Comment on above: 15mg/dL Leukocytes, UA Positive Negative - 500+++ Rufina/mcL [facility] Comment on above: small Nitrite, UA Negative Negative - Positive [facility] pH, UA 7.5 5 - 9 [facility] Protein, UA Positive Negative - 2000(20) ++++ mg/dL [facility] Comment on above: 100mg/dL Spec Grav, UA 1.015 1 - 1.03 [facility] Urobilinogen, UA 1.0 0.2 - 12 mg/dL [facility] Ambulatory Visit Summaryon 0 - Ambulatory Visit Summary Ambulatory Visit Summary HESHAM AVALOS Tyshawn :2000 Visit Date:08/05/2024 Ambulatory Visit Instructions Your Diagnosis Urethral cyst Your Care Team Attending Physician - TINO MACK, Darin Cummins Primary Care Physician - ANDREA MACK, JIM Neil Referring Physician - Rebeca HIDALGO DO This Is Your Medications List Contact prescribing physician if questions or concerns ferrous sulfate (ferrous sulfate (as elemental iron) 45 mg oral tablet, extended release) multivitamin, ( Multivitamins) Procedures Performed Extraction of wisdom tooth (03/20/2018), Mouth care, Myringotomy and insertion of T tube, Tympanostomy. Discharge Vitals Temperature (Temporal Artery) 36.5 ???C Heart Rate (Peripheral) 68 Respiratory Rate 16 Blood Pressure 128/70 Height 163 cm Height 64 in Weight 100 kg Weight 220.462 lb BMI 37.64 What to do next You Need to Schedule the Following Appointments Follow Up with TINO MACK, Darin Cummins, SHERIN When: Comments: schedule cystoscopy Where: [facility] [address] , [place] [address]- [phone] Medications What How Much When Instructions Unchanged ferrous sulfate (ferrous sulfate (as elemental iron) 45 mg oral tablet, extended release) 27 Milligram By Mouth Every day Contact prescribing physician if questions or concerns Unchanged multivitamin, ( Multivitamins) 1 Tablets By Mouth Every day Contact prescribing physician if questions or concerns Allergies No Known Allergies Problems Ongoing - Any problem that you are currently receiving treatment for. Velamentous insertion of umbilical cord in second trimester Patient Survey You may receive a survey via text or e-mail asking about your office visit. Please share your experience with us by completing your survey. We appreciate your feedback and thank you for choosing us for your care. Education Materials Cystoscopy Cystoscopy is a procedure that is used to help diagnose and sometimes treat conditions that affect the lower urinary tract. The lower urinary tract includes the bladder and the urethra. The urethra is the tube that drains urine from the bladder. Cystoscopy is done using a thin, tube-shaped instrument with a light and camera at the end (cystoscope). The cystoscope may be hard or flexible, depending on the goal of the procedure. The cystoscope is inserted through the urethra, into the bladder. Cystoscopy may be recommended if you have: ??? Urinary tract infections that keep coming back. ??? Blood in the urine (hematuria). ??? An inability to control when you urinate (urinary incontinence) or an overactive bladder. ??? Unusual cells found in a urine sample. ??? A blockage in the urethra, such as a urinary stone. ??? Painful urination. ??? An abnormality in the bladder found during an intravenous pyelogram (IVP) or CT scan. Cystoscopy may also be done to remove a sample of tissue to be examined under a microscope (biopsy). Tell a health care provider about: ??? Any allergies you have. ??? All medicines you are taking, including vitamins, herbs, eye drops, creams, and wxms-lrb-pwxseii medicines. ??? Any problems you or family members have had with anesthetic medicines. ??? Any blood disorders you have. ??? Any surgeries you have had. ??? Any medical conditions you have. ??? Whether you are or may be . What are the risks? Generally, this is a safe procedure. However, problems may occur, including: ??? Infection. ??? Bleeding. ??? Allergic reactions to medicines. ??? Damage to other structures or organs. What happens before the procedure? Medicines Ask your health care provider about: ??? Changing or stopping your regular medicines. This is especially important if you are taking diabetes medicines or blood thinners. ??? Taking medicines such as aspirin and ibuprofen. These medicines can thin your blood. Do not take these medicines unless your health care provider tells you to take them. ??? Taking tqcd-uln-zwelrrk medicines, vitamins, herbs, and supplements. Tests You may have an exam or testing, such as: ??? X-rays of the bladder, urethra, or kidneys. ??? CT scan of the abdomen or pelvis. ??? Urine tests to check for signs of infection. General instructions ??? Follow instructions from your health care provider about eating or drinking restrictions. ??? Ask your health care provider what steps will be taken to help prevent infection. These steps may include: ? Washing skin with a germ-killing soap. ? Taking antibiotic medicine. ??? Plan to have a responsible adult take you home from the hospital or clinic. What happens during the procedure? You will be given one or more of the following: ? A medicine to help you relax (sedative). ? A medicine to numb the area (local ane (more content not included)... Normal [facility] Urology Office/Clinic Noteon 08-05-2024 Urology Office/Clinic Note Urology Office/Clinic Note Chief Complaint New patient , urethral cyst HPI Staff 23 [address] referred by Dr Rebeca Hidalgo DO due to urethral cyst since end of june, beginning of July. Pt is 13 weeks . No urological issues. History of Present Illness Tests reviewed: reviewed UA, referral records I have reviewed the previous health record information and history for this patient from external providers. I have reviewed and verified the staff HPI to be accurate for this encounter. Review of Systems PHQ Score Initial Depression Screen Score: 0 SCORE ROS - Provider Constitutional: denies weight loss, denies hot flashes. Eyes: denies eye problems. Gastrointestinal: denies nausea, denies vomiting. Cardiovascular: denies chest pain or angina. Integumentary: no dryness Musculoskeletal: denies musculoskeletal symptoms. ENMT: denies otolaryngeal symptoms. Respiratory: no shortness of breath. Heme/Lymph: denies easy bleeding tendency, denies easy bruising tendency. Psychiatric: no confusion, no anxiety. Genitourinary: See HPI. Physical Exam Vitals & Measurements T: 36.5 ???C(Temporal Artery) HR: 68(Peripheral) RR: 16 BP: 128/70 HT: 64 in HT: 163 cm WT: 220.462 lb WT: 100 kg BMI: 37.64 General Appearance: alert , no acute distress, well nourished, well developed female. Head: normocephalic . Eyes: normal orbit and globe. ENMT: normal examination of external ears. Chest: Lungs CTA, respirations non labored . Cardiovascular: regular rate and rhythm. Abdomen: soft , non distended, no tenderness, no mass or organomegaly, no hernia. Genitourinary: bladder nonpalpable, no flank tenderness. Lymph Nodes: unremarkable palpation of the cervical area. Skin: warm, dry, no bruising. Psychiatric: cooperative, affect appropriate for age, normal judgement, euthymic mood. Assessment/Plan Hesham is a 23 yo female new pt referred by Dr. Rebeca Hidalgo for urethral cyst. Pt is 13wks gestation. 1. Urethral cyst (N36.8: Other specified disorders of urethra) UA today negative for blood and infection. Shares she was suspicious for a Bartholin cyst so she called Dr. Hidalgo. States he did not notice this upon examination. First noticed cyst on right side after having pain with intercourse. Feels cyst has remained stable in size, about the size of a marble. Denies abnormal discharge. No hx of UTIs. Feels urination is wnl. -Will schedule cystoscopy with pelvic exam. The risks and benefits for cystoscopy have been discussed. The risks include bleeding, infection, and irritation of the bladder and urinary channel, among others. The patient, after being informed of procedural details and after questions have been answered, wishes to proceed. Full informed consent has been obtained. Will order Local anesthesia. 2. Dyspareunia, female (N94.10: Unspecified dyspareunia) See #1. Follow-up With When Contact Information TINO MACK, Darin Cummins, [facility] [address] [place] [address] [phone] Additional Instructions: schedule cystoscopy Patient Education Cystoscopy IChichi, personally scribed for Dr. Richard on 08/05/2024 13:43:38. . Documentation recorded by the scribe, Chichi Bautista, accurately reflects the services(s) I performed and decisions made by me. Authenticated by Dr. Richard on 08/05/2024 13:46:15. Problem List/Past Medical History Ongoing Velamentous insertion of umbilical cord in second trimester Historical No qualifying data Procedure/Surgical History Extraction of wisdom tooth (03/20/2018), Mouth care, Myringotomy and insertion of T tube, Tympanostomy. Medications ferrous sulfate (as elemental iron) 45 mg oral tablet, extended release, 27 mg, Oral, Daily Multivitamins, 1 tab(s), Oral, Daily Allergies No Known Allergies Social History Alcohol Never., 07/31/2024 Substance Abuse Never., 07/31/2024 Tobacco Never (less than 100 in lifetime) Tobacco Use:. Never Smokeless Tobacco Use:., 08/05/2024 Family History Cancer - unknown origin: Grandparent. Diabetes mellitus type 2: Grandparent. Heart failure: Grandparent. Hypertension: Grandparent. Seizure: Sister. [facility] Comment on above: Result Comment: Elec tronically Signed By: Darin RICHARD MD\.br\Date and Time Signed: 08/05/24 13:46 EDT\.br\Electronically Co-Signed By: Chichi Bautista\.br\Date and Time Co-Signed: 08/05/24 13:44 EDT RECURRENT VAGINITIS (HTRX)on 07-24-2024 ATOPOBIUM VAGINAE 0 [facility] ATOPOBIUM VAGINAE Not detected [facility] BVAB 2,3 (BACTERIAL VAGINOSIS ASSOCIATED BACTERIA 2, 3); MOBILUNCUS SPP 0 [facility] BVAB 2,3 (BACTERIAL VAGINOSIS ASSOCIATED BACTERIA 2, 3); MOBILUNCUS SPP Not detected [facility] LIU ALBICANS, PARAPSILOSIS, TROPICALIS 0 [facility] LIU ALBICANS, PARAPSILOSIS, TROPICALIS Not detected [facility] LIU GLABRATA 0 [facility] LIU GLABRATA Not detected [facility] LIU KRUSEI 0 [facility] LIU KRUSEI Not detected [facility] CHLAMYDIA TRACHOMATIS 0 [facility] CHLAMYDIA TRACHOMATIS Not detected [facility] GARDNERELLA VAGINALIS 0 [facility] GARDNERELLA VAGINALIS Not detected [facility] MEGASPHAERA (TYPES 1, 2) 0 [facility] MEGASPHAERA (TYPES 1, 2) Not detected [facility] MYCOPLASMA GENITALIUM 0 [facility] MYCOPLASMA GENITALIUM Not detected [facility] NEISSERIA GONORRHOEAE 0 [facility] NEISSERIA GONORRHOEAE Not detected [facility] TRICHOMONAS VAGINALIS 0 [facility] TRICHOMONAS VAGINALIS Not detected [facility] Urinalysis macro (dipstick) panel (U)on 07-23-2024 Bilirubin, UA Negative Negative - 4(70) +++ mg/dL [facility] Blood, UA Negative Negative - 50 Eulogio/mcL [facility] Clarity, UA Clear [facility] re Color, UA Yellow [facility] e Glucose, UA Negative Negative - 1999(110) ++++ mg/dL [facility] Interpretation and review of laboratory results Abnormal [facility] Ketones, UA Positive Negative - 160(16) ++++ mg/dL [facility] Comment on above: trace Leukocytes, UA Negative Negative - 500+++ Rufina/mcL [facility] Nitrite, UA Negative Negative - Positive [facility] pH, UA 6.5 5 - 9 [facility] Protein, UA Trace Negative - 1999(20) ++++ mg/dL [facility] Spec Grav, UA 1.03 1 - 1.03 [facility] Urobilinogen, UA 0.2 0.2 - 12 mg/dL [facility] Free Cell DNAOrdered B y: Pao Fu on 07-16-2024 [facility] BOX TESTon 07-08-2024 BOX TEST SENT OUT [facility] BOX1 [facility] e BOX2 07/08/24 [facility] BOX [facility] Drug Screen, Urineon 025 Amphetamine/Methamph etamine Negative [facility] Barbiturates Negative [facility] Benzodiazepines Negative [facility] Cocaine Metabolite Negative [facility] Methadone Negative [facility] Opiates Negative [facility] Oxycodone Negative [facility] Phencyclidine Negative [facility] Thc Marijuana, Urine Negative [facility] HIV 1&2 AB/AG Screen (P24 AG )on 07-08-2024 HIV 1&2 AB/AG Non-Reactive [facility] Hepatitis B surface antigeno n 07-08-2024 Hepatitis B Surface Antigen Negative [facility] Hepatitis C(HCV) Ab w/ Refle x to PCRon 07-08-2024 HCV Ab Ql (S) Non-Reactive [facility] No Panel Informationon 07-08 [facility] Rubella IGG immune statuson 07-08-2024 Rubella immune IgG IMMUNE [facility] Syphilis Total(Unknown Syphi lis Status)on 07-08-2024 Syphilis Non-Reactive [facility] Type and screenon 07-08-2024 Abo/Rh(D) Positive [facility] US OB TRANSVAGINALon 025 US OB TRANSVAGINAL EXAM: US OB TRANSVAGINAL HISTORY: Dating. COMPARISON: None available. TECHNIQUE: Two-dimensional transvaginal grayscale ultrasound imaging of the pelvis was performed. Color Doppler evaluation of the ovaries was also performed. FINDINGS: The uterus demonstrates a normal homogeneous echotexture. The cervix measures 3.4 cm in length and the cervical os is closed. The right ovary measures 2.3 x 1.1 x 2.1 cm and demonstrates a normal echotexture. There is normal color Doppler flow. The left ovary is not visualized due to overlying bowel gas. No fluid is present within the cul-de-sac. There is a single, live intrauterine gestation identified with a heart rate of 182 beats per minute and a crown-rump length measurement of 2 cm, correlating to a gestational age of 8 weeks 4 days (+/- 5 days). There is no subchorionic hemorrhage visualized. A yolk sac is visualized. IMPRESSION: 1. Single, live intrauterine gestation 8 weeks, 4 days by LMP. Today's ultrasound measurements correlate with a gestational age of 8 weeks 4 days (+/- 5 days). RAY by today's ultrasound is 02/10/2025. 2. Normal color Doppler evaluation of the right ovary, the left ovary was not visualized. Electronically Signed:Electronically signed by IVANNA SAXENA II, MD, PHD at 05-Jul-2024 08:37:00 PM [facility] Normal Not Available Comment on above: Order Comment: US OB TRANSVAGINAL No LMP recorded. PAP ACOG PANEL 2: 21 to 29on 03-04-2022 . . Normal [facility] Comment on above: Performed By: #### [id number] #### [facility] [address] [place] [address] Dr. Anthony Newton Age Gdln ACOG Testing - Normal [facility] Comment on above: Performed By: #### [id number] #### [facility] [address] [place] [address] Dr. Anthony Newton DIAGNOSIS: Comment [facility] Comment on above: Result Comment: NEGA TIVE FOR INTRAEPITHELIAL LESION OR MALIGNANCY. THIS SPECIMEN WAS RESCREENED PART OF OUR OPINION POLLS SURVEY WORKER PROGRAM. Performed By: #### [id number] #### [facility] [address] [place] [address] Dr. Anthony Newton Methodology: Comment Normal [facility] Comment on above: Result Comment: This liquid based ThinPrep(R) pap test was screened with the use of an image guided system. Performed By: #### [id number] #### [facility] [address] [place] [address] Dr. Anthony Newton Note: Comment Normal [facility] Comment on above: Result Comment: The Pap smear is a screening test designed to aid in the detection of premalignant and malignant conditions of the uterine cervix. It is not a diagnostic procedure and should not be used as the sole means of detecting cervical cancer. Both false-positive and false-negative reports do occur. . Performed By: #### [id number] #### [facility] [address] [place] [address] Dr. Anthony Newton Performed by: Comment Normal [facility] Comment on above: Result Comment: Lana Connell, Ice Delivery Driver Performed By: #### [id number] #### [facility] [address] [place] [address] Dr. Anthony Newton QC reviewed by: Comment Normal [facility] Comment on above: Result Comment: Shae Maria, Ice Delivery Driver (ASCP) Performed By: #### [id number] #### [facility] [address] [place] [address] Dr. Antohny Newton Reflex Criteria: Comment [facility] Comment on above: Result Comment: The HPV DNA reflex criteria were not met with this specimen result therefore, no HPV testing was performed. . Performed By: #### [id number] #### [facility] [address] [place] [address] Dr. Anthony Newton Specimen adequacy: Comment Normal [facility] Comment on above: Result Comment: Sati sfactory for evaluation. Endocervical and/or squamous metaplastic cells (endocervical component) are present. Performed By: #### [id number] #### [facility] [address] [place], [place] [address] Dr. Anthony Newton Lab - Toxicology Resultson 0 10-05-2018 Lab - Toxicology Results [id number]. 00OTGTIFF [facility] Outside Recordson 10-04-2018 Outside Records [id number]. 00OTGTIFF [facility] Triage Industrialon 10-05-19 Drug Screen Complete Collected Normal [facility] Comment on above: Performed By: #### [id number] #### [facility] (DEFAULT) [address] [place] [address] ED Clinical Summaryon [address] [facility] ? Urgent Care [address] [place] [id number] Clinical Summary PERSON INFORMATION Name: HESHAM NEELY Age: 18 Years Sex: FEMALE : 00 MRN: Acct#: Visit Reason: Medical screening exam; PHYSICAL PRE EMPLOYMENT/ RIVERVIEW Arrival: 10/03/18 16:20:33 Discharge: 10/03/18 16:50:00 LOS: 000 00:30 Check In: 10/03/18 16:20:33 Checkout: 10/03/18 16:50:00 Address: [address] [place] [id number] PCP: PROVIDER INFORMATION Provider Role Assigned Unassigned [...] INFORMATION Instructions: Follow-Up: DIAGNOSIS: Patient Understands: Comment: Normal [facility] ED Patient Summaryon [address] [facility] ? Urgent Care [address] [place] [address] PATIENT DISCHARGE INSTRUCTIONS Patient Information Name: HESHAM NEELY Age: 18 Years Date of : 00 [facility]: [id number] Reason For Visit: Medical screening exam; PHYSICAL PRE EMPLOYMENT/ RIVERVIEW Arrival Time: 10/03/18 16:20:33 Primary Care Physician: Attending Physician: Paulino Padilla Comment: Patient Education Medication Information: The exam and treatment you received today in the [facility] Emergency Department were for an urgent problem and are not intended as complete care. It is important for you to follow up with a doctor, nurse practitioner, or physician?s drilling assistant for ongoing care. If your symptoms [...] so we can reach you if necessary. [facility] Emergency Department has provided you with a complete list of medications post discharge. Please inform your hooker laster/provider of your visit and for further instruction on these medications. Any specific questions regarding your chronic medications and dosages should be discussed with your primary care physician(s) and/or pharmacist. Visit Information Visit Diagnosis: Diagnoses This Visit Medical screening exam ([id number]) If you received any narcotics, sedation, or [...] sign any legal documents Reason for Visit: [place] physical Allergies: Substance Reaction Symptoms Type Comments [...] for Disease Control and Prevention December 2013 [facility] Vital Signs Date Time Vital Sign Value Performing Clinician Sole rodriguez 08-20-2024 10:54-0400 Body mass index (BMI) [Ratio] 37.59 kg/m2 Zefanclub DO Work Phone: [facility] 08-20-2024 10:54-0400 Body weight 99.34 kg Zefanclub DO Work Phone: [facility] 08-20-2024 10:54-0400 Diastolic blood pressure 84 mm[Hg] Zefanclub DO Work Phone: [facility] 08-20-2024 10:54-0400 Systolic blood pressure 126 mm[Hg] Cylandezio DO Work Phone: [facility] 07-23-2024 12:54-0400 Body mass index (BMI) [Ratio] 38.28 kg/m2 Rebeca Rocky DO Work Phone: [facility] 07-23-2024 12:54-0400 Body weight 101.15 kg Rebeca Rocky DO Work Phone: [facility] 07-23-2024 12:54-0400 Diastolic blood pressure 80 mm[Hg] Rebeca Rocky DO Work Phone: [facility] 07-23-2024 12:54-0400 Systolic blood pressure 120 mm[Hg] Rebeca Rocky DO Work Phone: [facility] 05-24-2023 14:05-0500 Body height 162.6 cm Stephanie Sotelo MANAGER AUTOMOTIVE Work Phone: [facility] 05-24-2023 14:05-0500 Body mass index (BMI) [Ratio] 34.57 kg/m2 Stephanie Sotelo MANAGER AUTOMOTIVE Work Phone: [facility] 05-24-2023 14:05-0500 Body weight 91.35 kg Stephanie Sotelo MANAGER AUTOMOTIVE Work Phone: [facility] 05-24-2023 14:05-0500 Diastolic blood pressure 74 mm[Hg] Stephanie Sotelo MANAGER AUTOMOTIVE Work Phone: [facility] 05-24-2023 14:05-0500 Heart rate 63 /min Stephanie Sotelo MANAGER AUTOMOTIVE Work Phone: [facility] 05-24-2023 14:05-0500 Respiratory rate 20 /min Stephanie Sotelo MANAGER AUTOMOTIVE Work Phone: [facility] 05-24-2023 14:05-0500 SaO2% (BldA) [Mass fraction] 96 % Stephanie Sotelo MANAGER AUTOMOTIVE Work Phone: [facility] 05-24-2023 14:05-0500 Systolic blood pressure 138 mm[Hg] Stephanie Sotelo MANAGER AUTOMOTIVE Work Phone: [facility] 04-12-2023 15:05-0500 Body height 162.6 cm Daniella Reina MD Work Phone: [facility] [employer] 04-12-2023 15:05-0500 Body mass index (BMI) [Ratio] 37.93 kg/m2 Daniella Reina MD Work Phone: [facility] [employer] [facility] 04-12-2023 15:05-0500 Body weight 100.25 kg Daniella Reina MD Work Phone: [facility] 04-12-2023 15:05-0500 Diastolic blood pressure 76 mm[Hg] Daniella Reina MD Work Phone: [facility] 04-12-2023 15:05-0500 Heart rate 96 /min Daniella Reina MD Work Phone: [facility] [employer] 04-12-2023 15:05-0500 Systolic blood pressure 115 mm[Hg] Daniella Reina MD Work Phone: [facility] Encounters Encounter Date Encounter Type Care Provider Facility Start: 10-07-2024 ambulatory Darin RICHARD Facili ty:[facility] Start: 08-20-2024 End: 08-20-2024 Bamboo flowsheet Rebeca Rocky DO Work Phone: [facility] Start: 08-20-2024 End: 08-20-2024 Bamboo flowsheet Rebeca Rocky DO Work Phone: [facility] Start: 08-20-2024 End: 08-20-2024 ambulatory REBECA ROCKY Not Available Start: 08-20-2024 End: 08-20-2024 flow sheet Rebeca Rocky DO Work Phone: [facility] Comment on above: Second trimester pre gnancy; 15 weeks gestation of ; Diabetes mellitus screening Start: 08-05-2024 End: 08-05-2024 ambulatory Darin RICHARD Facility: [facility] Start: 08-02-2024 End: 08-02-2024 Chart abstracting Cintia Allen MD Work Phone: [facility] Start: 07-25-2024 ambulatory Facility:[facility] Start: 07-23-2024 End: 07-24-2024 External Result Encounter Rebeca Rocky DO Work Phone: [facility] Unsolicited Start: 07-23-2024 End: 07-24-2024 External Result Encounter Rebeca Rocky DO Work Phone: [facility] Unsolicited Start: 07-23-2024 End: 07-23-2024 flow sheet Rebeca Rocky DO Work Phone: [facility] Comment on above: 11 weeks gestation o f ; First trimester ; History of placental abnormality; Vaginal discharge; Urethral cyst Start: 07-23-2024 End: 07-23-2024 ambulatory REBECA ROCKY Not Available Start: 07-08-2024 End: 07-08-2024 Clinisync Result Encounter Rebeca Rocky DO Work Phone: [facility] Unsolicited Start: 07-08-2024 End: 07-08-2024 Clinisync Result Encounter Rebeca Rocky DO Work Phone: [facility] Unsolicited Start: 07-05-2024 End: 07-05-2024 ambulatory REBECA ROCKY Not Available Start: 11-21-2023 End: 11-21-2023 ambulatory REBECA ROCKY Not Available Start: 05-24-2023 Bamboo flowsheet Stephanie Wharton zpatrick MANAGER AUTOMOTIVE Work Phone: [facility] Start: 05-24-2023 Bamboo flowsheet Stephanie A Fit zpatrick MANAGER AUTOMOTIVE Work Phone: [facility] Start: 05-24-2023 End: 05-24-2023 Patient encounter status Stephanie Cortésk MANAGER AUTOMOTIVE Work Phone: [facility] Work Phone: Start: 05-24-2023 End: 05-24-2023 Periodic preventive med est patient 18-39 yrs Stephanie Sotelo MANAGER AUTOMOTIVE Work Phone: [facility] Comment on above: Encounter for wellne ss examination (Primary Dx); Anemia, unspecified type Start: 04-12-2023 End: 04-12-2023 Office outpatient visit 25 minutes Daniella Reina MD Work Phone: [facility] [place] Comment on above: 35 weeks gestation o f (Primary Dx); Polyhydramnios affecting Start: 02-24-2022 End: 02-24-[address] REBECA HIDALGO Facility:[facility] Procedures Date Procedure Procedure Detail Performing Clinician Start: 08-20-2024 Urnls dip stick/tabl et rgnt non-auto w/o micrscp Rebeca Rocky DO Work Phone: Start: 07-23-2024 RECURRENT VAGINITIS (HTRX) Rebeca Rocky DO Work Phone: Start: 07-23-2024 Urnls dip stick/tabl et rgnt non-auto w/o micrscp Rebeca Rocky DO Work Phone: Start: 07-08-2024 Antibody screen Cintia garcia MD Work Phone: Start: 07-08-2024 Drug scrn 1+ class nonchromo Not In System Ref Prov Start: 07-08-2024 FREE CELL DNA (NON-[facility]) Not In System Ref Prov Start: 07-08-2024 Hepatitis c antibody No t In System Ref Prov Start: 07-08-2024 HIV 1&2 AB/AG SCREEN (P24 AG) Not In System Ref Prov Start: 07-08-2024 Iaad ia hepatitis b surface antigen Not In System Ref Prov Start: 07-08-2024 TYPE AND SCREEN Not In System Ref Prov Start: 07-08-2024 BOX TEST Rebeca murphy DO Work Phone: Start: 11-09-2022 Microscopic observat ion [Identifier] in Cervix by Cyto stain Daniella Reina MD Work Phone: Start: 10-17-2021 Adult depression scr eening assessment Daniella Reina MD Work Phone: Plan of Treatment Date Care Activity Detail Author Start: 12-19-2030 DTaP,Tdap and Td Vaccines (6 - Tdap) DTaP,Tdap and Td Vaccines (6 - Tdap) [facility] Start: 11-09-2025 Screening for malign ant neoplasm of cervix Pap Smear [facility] Start: 12-16-2024 Influenza vaccination [facility] Start: 11-26-2024 End: 11-26-2024 Patient encounter procedure 11/26/2024 3:00 PM EDT Office Visit [facility] [address] [phone] Rebeca Hidalgo DO [address] [place] [address] [facility] Start: 09-23-2024 End: 09-23-2024 Patient encounter procedure [facility] Start: 09-17-2024 End: 09-17-2024 Patient encounter procedure 09/17/2024 1:30 PM EDT Routine [facility] [address] [place] [phone] Kathie Lee PA [address] [place] [address] [facility] Start: 08-20-2024 End: 10-20-2024 Alpha fetoprotein, maternal Alpha fetoprotein, maternal Lab Routine Second trimester 15 weeks gestation of Expected: 08/20/2024 (Approximate), Expires: 10/20/2024 [facility] Work Phone: Comment on above: Expected: 08/20/2024 (Approximate), Expires: 10/20/2024 Start: 08-20-2024 End: 08-20-2025 Measurement of glucose 1 hour after glucose challenge for glucose tolerance test Glucose tolerance, 1 hour Lab Routine Diabetes mellitus screening Expected: 08/20/2024 (Approximate), Expires: 08/20/2025 [facility] Comment on above: Expected: 08/20/2024 (Approximate), Expires: 08/20/2025 Start: 08-20-2024 End: 08-20-2024 Patient encounter procedure 08/20/2024 10:20 AM EDT Routine [facility] [address] [place] [place] [phone] Rebeca Hidalgo, DO [address] [place], [place] [id number] [facility] Start: 08-05-2024 End: 08-05-2024 Patient encounter procedure 08/05/2024 2:10 PM EDT Routine [facility] [address] [place] [phone] Rebeca Hidalgo, DO [address] [place] [address] [facility] Start: 04-12-2024 Adult BMI Screening Adult BMI Screen ing [facility] Start: 04-12-2024 Tobacco Screening Tobacco Screening [facility] Start: 12-17-2023 COVID-19 Vaccine ( season) COVID-19 Vaccine ( season) [facility] Start: 12-17-2023 Influenza vaccination Influenza Vacc ine (#1) [facility] Start: 11-10-2023 Screening for Chlamy annabella trachomatis Chlamydia Screening [facility] Start: 10-15-2023 Influenza vaccination Influenza Vacc ine (#1) [facility] Comment on above: Postponed from 12/16 (Patient Refused) Start: 06-07-2023 End: 06-07-2023 ambulatory 06/07/2023 10:30 AM EST Visit [facility] [address] [place] [phone] Kathie Lee, PA [address] [place] [address] [facility] Start: 05-24-2023 End: 05-24-2024 CBC W Auto Differential panel - Blood CBC and differential Lab Routine Encounter for wellness examination Anemia, unspecified type Expected: 05/24/2023 (Approximate), Expires: 05/24/2024 [facility] Comment on above: Expected: 05/24/2023 (Approximate), Expires: 05/24/2024 Start: 05-24-2023 End: 05-24-2024 Comprehensive metabolic 2000 panel - Serum or Plasma Comprehensive metabolic panel Lab Routine Encounter for wellness examination Anemia, unspecified type Expected: 05/24/2023 (Approximate), Expires: 05/24/2024 [facility] Work Phone: Comment on above: Expected: 05/24/2023 (Approximate), Expires: 05/24/2024 Start: 12-16-2022 COVID-19 Vaccine ( season) COVID-19 Vaccine () [facility] Start: 12-16-2022 Influenza vaccination [facility] Start: 01-31-2022 Depression Screening Depression Scre [facility] Start: 2018 Adult BMI Follow Up Plan Adult BMI Follow Up Plan [facility] Start: 2012 Depression Screening Depression Scre [facility] CHLAMYDIA TRACHOMATI S (GENITO/STI) CHLAMYDIA TRACHOMATIS (GENITO/STI) Lab Routine Vaginal discharge Ordered: 07/23/2024 [facility] Comment on above: Ordered: 07/23/2024 Neisseria gonorrhoea e DNA [Presence] in Unspecified specimen by BOONE with probe detection Neisseria gonorrhea DNA probe, direct Lab Routine Vaginal discharge Ordered: 07/23/2024 [facility] Comment on above: Ordered: 07/23/2024 SURESWAB(R) ADVANCED VAGINITIS PLUS, TMA SURESWAB(R) ADVANCED VAGINITIS PLUS, TMA Pathology and Cytology Routine Vaginal discharge Ordered: 07/23/2024 [facility] Work Phone: Comment on above: Ordered: 07/23/2024 Immunizations Immunization Date Immunization Notes Care Provider Bronwyn alexander 02-01-2021 Seasonal, quadrivale nt, recombinant, injectable influenza vaccine, preservative free Stephanie Sotelo MANAGER AUTOMOTIVE Work Phone: [facility] 02-01-2021 influenza virus vaccine, unspecified formulation Daniella Reina MD Work Phone: [facility] 12-19-2020 diphtheria, tetanus toxoids and pertussis vaccine Daniella Reina MD Work Phone: [facility] 10-29-2019 hepatitis B vaccine, pediatric or pediatric/adolescent dosage Daniella Reina MD Work Phone: [facility] 05-14-2019 hepatitis B vaccine, adult dosage Daniella Reina MD Work Phone: [facility] 04-11-2019 hepatitis B vaccine, pediatric or pediatric/adolescent dosage Daniella Reina MD Work Phone: [facility] 04-11-2019 measles, mumps, rubella, and varicella virus vaccine Daniella Reina MD Work Phone: [facility] 11-09-2017 meningococcal oligosaccharide (groups A, C, Y and W-135) diphtheria toxoid conjugate vaccine (MCV4O) Daniella Reina MD Work Phone: [facility] 12-08-2004 diphtheria, tetanus toxoids and acellular pertussis vaccine Daniella Reina MD Work Phone: [facility] 12-08-2004 measles, mumps and rubella virus vaccine Daniella Reina MD Work Phone: [facility] 12-08-2004 poliovirus vaccine, inactivated Daniella Reina MD Work Phone: [facility] 09-28-2001 measles, mumps and rubella virus vaccine Daniella Reina MD Work Phone: [facility] 03-23-2001 diphtheria, tetanus toxoids and acellular pertussis vaccine, unspecified formulation Daniella Reina MD Work Phone: [facility] 03-23-2001 haemophilus influenz ae type b conjugate and Hepatitis B vaccine Daniella Reina MD Work Phone: [facility] 03-23-2001 poliovirus vaccine, inactivated Daniella Reina MD Work Phone: [facility] 01-12-2001 diphtheria, tetanus toxoids and acellular pertussis vaccine, unspecified formulation Daniella Reina MD Work Phone: [facility] 01-12-2001 haemophilus influenz ae type b vaccine, HbOC conjugate Daniella Reina MD Work Phone: [facility] 01-12-2001 poliovirus vaccine, inactivated Daniella Reina MD Work Phone: [facility] 2000 diphtheria, tetanus toxoids and acellular pertussis vaccine, unspecified formulation Daniella Reina MD Work Phone: [facility] 2000 haemophilus influenz ae type b conjugate and Hepatitis B vaccine Daniella Reina MD Work Phone: [facility] 2000 poliovirus vaccine, inactivated Daniella Reina MD Work Phone: [facility] 2000 hepatitis B vaccine, pediatric or pediatric/adolescent dosage Daniella Reina MD Work Phone: [facility] NEGATED: Highlighted row has not occurred!04-11-2019 influenza, injectable, quadrivalent, preservative free Daniella Reina MD Work Phone: [facility] Comment on above: Deferred: Patient de cision Payers Date Payer Category Payer [facility] [id number] 2022 [employer] - PPO [employer] [id number] 2022 Unknown [id number] 2021 Unknown [id number] 2000 Unknown [id number] 2000 Unknown [id number] [id number] 2000 Unknown [id number] 2000 Unknown [id number] [id number] 2000 Unknown [id number] [id number] 2000 Unknown [id number] 2000 Unknown [id number] [id number] 2000 Unknown [id number] 1959 Unknown [id number] Social History Date Type Detail Facility Start: 11-08-2022 End: 04-12-2023 Tobacco smoking status NHIS Never smoked tobacco [facility] Start: 11-08-2022 End: 04-12-2023 Tobacco use and exposure Smokeless tobacco non-user [facility] Start: 04-12-2023 End: 04-18-2023 Alcohol intake Lifetime non-drinker (finding) [facility] Start: 05-17-2023 End: 05-24-2023 History of Social function [facility] Start: 05-17-2023 End: 05-24-2023 Humiliation, Afraid, Rape, and Kick questionnaire [HARK] [facility] Within the last year , have you been afraid of your partner or ex-partner? No [facility] Are you now , , , , never or living with a partner? [facility] How often to you hav e a drink containing alcohol? 2-4 times a month [facility] How many standard drinks containing alcohol do you have on a typical day? 3 or 4 [facility] How often do you hav e 6 or more drinks on 1 occasion? Less than monthly [facility] How hard is it for y ou to pay for the very basics like food, housing, medical care, and heating Not hard at all [facility] Do you feel stress - tense, restless, nervous, or anxious, or unable to sleep at night because your mind is troubled all the time - these days [OSQ] Not at all [facility] (I/We) worried whenii er (my/our) food would run out before (I/we) got money to buy more. Never true [facility] Start: 08-15-2022 [facility] Start: 2000 Sex Assigned At Female P [facility] Start: 10-07-2022 Gender identity Identifies as female gender (finding) [facility] Start: 10-07-2022 Sexual orientation Heterosexual (fin ding) [facility] Start: 05-24-2023 End: 07-23-2024 Alcohol intake Ex-drinker (finding) [facility] Are you now , , , , never or living with a partner? Living with partner [facility] How hard is it for y ou to pay for the very basics like food, housing, medical care, and heating Not very hard [facility] Do you feel stress - tense, restless, nervous, or anxious, or unable to sleep at night because your mind is troubled all the time - these days [OSQ] Very much [facility] Start: 01-31-2021 Education 21 [facility] Start: 11-18-2014 Sex Female (finding) [facility] NEGATED: Highlighted rowStart: NINF History of tobacco use Passive smoker [facility] Medical Equipment Procedure Code Equipment Code Equipment Origin al Text Equipment Identifier Dates Check blood suga r 4-5 times daily, fasting and 1 hour after meals. Use as directed. Dispense per insurance preference. [id number] Start: 04-12-2023 1 strip by miscellaneous route in the morning and 1 strip at noon and 1 strip in the evening and 1 strip before bedtime. Check blood sugar 4-5 times daily, fasting and 1 hour after meals. Use as directed. Dispense per insurance preference.. [id number] Start: 04-12-2023 Clinical Notes 04-12-2023 to 08-20-2024 Brittany Christensen LPN - 08/20/2024 10:20 AM Madi Christensen LPN - 07/23/2024 12:50 PM Eliezer Sotelo NP - 05/24/2023 2:00 PM Marcy Gerard RN - 04/12/2023 3:15 PM EST Note Date & Type Note Facility 08-20-2024 History of Present illness Narrative Reason for Appointment: Patient ID: Hesham Avalos is a 24 y.o. female who presents for Routine Visit Patient presents today for Return OB appointment. MEDICATIONS Current Outpatient Medications Medication Instructions Ferrous Gluconate (IRON 27 PO) 1 each, Daily Cihjmpiz-Csf-Cs-FA (PRE-SIGIFREDO PO) 1 each, Daily ALLERGIES No Known Allergies PROBLEMS Active Ambulatory Problems Diagnosis Date Noted No Active Ambulatory Problems Resolved Ambulatory Problems Diagnosis Date Noted Obesity affecting in second trimester 01/27/2023 Velamentous insertion of umbilical cord in second trimester 01/27/2023 Past Medical History: Diagnosis Date 6 weeks follow-up HISTORY PAST MEDICAL HISTORY SOCIAL HISTORY Past Medical History: Diagnosis Date 6 weeks follow-up Social History Tobacco Use Smoking status: Never Smokeless tobacco: Never Substance Use Topics Alcohol use: Not Currently Drug use: Never FAMILY HISTORY Family History Problem Relation Name Age of Onset Hypertension Maternal Grandmother Fior Diabetes Maternal Grandmother Fior Cancer Maternal Grandfather Fior Heart failure Maternal Grandfather Fior Cancer Paternal Grandfather Rajat Seizures Sister Nicole SURGICAL HISTORY Past Surgical History: Procedure Laterality Date MOUTH SURGERY 2018 MYRINGOTOMY W/ TUBES 2003 REVIEW OF SYSTEMS Review of Systems: Review of Systems Constitutional: Negative. HENT: Negative. Eyes: Negative. Respiratory: Negative. Cardiovascular: Negative. Gastrointestinal: Negative. Genitourinary: Negative. Musculoskeletal: Negative. Skin: Negative. Neurological: Negative. All other systems reviewed and are negative. Hematological: Negative. Endocrine: Negative. Allergic/Immunologic: Negative. OBJECTIVE Objective: Physical Exam Constitutional: Appearance: Normal appearance. She is well-developed. Cardiovascular: Rate and Rhythm: Normal rate and regular rhythm. Pulmonary: Effort: Pulmonary effort is normal. Breath sounds: Normal breath sounds. Abdominal: General: Bowel sounds are normal. There is no distension. Palpations: Abdomen is soft. Tenderness: There is no abdominal tenderness. There is no guarding or rebound. Musculoskeletal: General: No swelling. Normal range of motion. Right lower leg: No edema. Left lower leg: No edema. Neurological: Mental Status: She is alert and oriented to person, place, and time. Skin: General: Skin is warm and dry. Psychiatric: Mood and Affect: Mood normal. Behavior: Behavior normal. Vitals and nursing note reviewed. Exam conducted with a digital marketing intern present. Vitals: Estimated body mass index is 37.59 kg/m as calculated from the following: Height as of 11/21/23: 5' 4 . Weight as of this encounter: 219 lb. BP: 126/84 Patient's last menstrual period was 05/06/2024. ASSESSMENT & PLAN ICD-10-CM 1. Second trimester Z34.92 POCT urinalysis dipstick manually resulted Alpha fetoprotein, maternal Alpha fetoprotein, maternal 2. 15 weeks gestation of Z3A.15 Alpha fetoprotein, maternal Alpha fetoprotein, maternal Patient presents today for a routine obstetrics appointment. Patient is currently 15w1d with a Estimated Date of Delivery: 02/10/25. Pt to see mfm in September for anatomy scan. Pt given early one hour. Pt to return in 4 weeks for scheduled ob appt. Pt advised to take a baby aspirin. Documented by Brittany Christensen LPN on behalf of: Rebeca Hidalgo DO documented in this encounter [place] [facility] Note Patient Education Urology Cystoscopy Cystoscopy is a procedure that is used to help diagnose and sometimes treat conditions that affect the lower urinary tract. The lower urinary tract includes the bladder and the urethra. The urethra is the tube that drains urine from the bladder. Cystoscopy is done using a thin, tube-shaped instrument with a light and camera at the end (cystoscope). The cystoscope may be hard or flexible, depending on the goal of the procedure. The cystoscope is inserted through the urethra, into the bladder. Cystoscopy may be recommended if you have: ??? Urinary tract infections that keep coming back. ??? Blood in the urine (hematuria). ??? An inability to control when you urinate (urinary incontinence) or an overactive bladder. ??? Unusual cells found in a urine sample. ??? A blockage in the urethra, such as a urinary stone. ??? Painful urination. ??? An abnormality in the bladder found during an intravenous pyelogram (IVP) or CT scan. Cystoscopy may also be done to remove a sample of tissue to be examined under a microscope (biopsy). Tell a health care provider about: ??? Any allergies you have. ??? All medicines you are taking, including vitamins, herbs, eye drops, creams, and yavy-obh-iotkpar medicines. ??? Any problems you or family members have had with anesthetic medicines. ??? Any blood disorders you have. ??? Any surgeries you have had. ??? Any medical conditions you have. ??? Whether you are or may be . What are the risks? Generally, this is a safe procedure. However, problems may occur, including: ??? Infection. ??? Bleeding. ??? Allergic reactions to medicines. ??? Damage to other structures or organs. What happens before the procedure? Medicines Ask your health care provider about: ??? Changing or stopping your regular medicines. This is especially important if you are taking diabetes medicines or blood thinners. ??? Taking medicines such as aspirin and ibuprofen. These medicines can thin your blood. Do not take these medicines unless your health care provider tells you to take them. ??? Taking rmtx-esh-ylyxzrc medicines, vitamins, herbs, and supplements. Tests You may have an exam or testing, such as: ??? X-rays of the bladder, urethra, or kidneys. ??? CT scan of the abdomen or pelvis. ??? Urine tests to check for signs of infection. General instructions ??? Follow instructions from your health care provider about eating or drinking restrictions. ??? Ask your health care provider what steps will be taken to help prevent infection. These steps may include: ? Washing skin with a germ-killing soap. ? Taking antibiotic medicine. ??? Plan to have a responsible adult take you home from the hospital or clinic. What happens during the procedure? You will be given one or more of the following: ? A medicine to help you relax (sedative). ? A medicine to numb the area (local anesthetic). ??? The area around the opening of your urethra will be cleaned. ??? The cystoscope will be passed through your urethra into your bladder. ??? Germ-free (sterile) fluid will flow through the cystoscope to fill your bladder. The fluid will stretch your bladder so that your health care provider can clearly examine your bladder colvin. ??? Your doctor will look at the urethra and bladder. Your doctor may take a biopsy or remove stones. ??? The cystoscope will be removed, and your bladder will be emptied. The procedure may vary among health care providers and hospitals. What can I expect after the procedure? After the procedure, it is common to have: ??? Some soreness or pain in your abdomen and urethra. ??? Urinary symptoms. These include: ? Mild pain or burning when you urinate. Pain should stop within a few minutes after you urinate. This may last for up to 1 week. ? A small amount of blood in your urine for several days. ? Feeling like you need to urinate but producing only a small amount of urine. Follow these instructions at home: Medicines ??? Take okab-mnw-ixfedoo and prescription medicines only as told by your health care provider. ??? If you were prescribed an antibiotic medicine, take it as told by your health care provider. Do not stop taking the antibiotic even if you start to feel better. General instructions ??? Return to your normal activities as told by your health care provider. Ask your health care provider what activities are safe for you. ??? If you were given a sedative during the procedure, it can affect you for several hours. Do not drive or operate machinery until your health care provider says that it is safe. ??? Watch for any blood in your urine. If the amount of blood in your urine increases, call your health care provider. ??? Follow instructions from your health care provider about eating or drinking restrictions. ??? If a tissue sample was removed for testing (biopsy) during your (more content not included)... [facility] 07-23-2024 History of Present illness Narrative Reason for Appointment: Patient ID: Hesham Avalos is a 23 y.o. female who presents for No chief complaint on file. Patient presents today for Return OB appointment. MEDICATIONS Current Outpatient Medications Medication Instructions Ferrous Gluconate (IRON 27 PO) 1 each, Daily Disvtqhj-Hgt-Yu-FA (PRE-SIGIFREDO PO) 1 each, Daily ALLERGIES No Known Allergies PROBLEMS Active Ambulatory Problems Diagnosis Date Noted No Active Ambulatory Problems Resolved Ambulatory Problems Diagnosis Date Noted Obesity affecting in second trimester 01/27/2023 Velamentous insertion of umbilical cord in second trimester 01/27/2023 Past Medical History: Diagnosis Date 6 weeks follow-up HISTORY PAST MEDICAL HISTORY SOCIAL HISTORY Past Medical History: Diagnosis Date 6 weeks follow-up Social History Tobacco Use Smoking status: Never Smokeless tobacco: Never Substance Use Topics Alcohol use: Not Currently Drug use: Never FAMILY HISTORY Family History Problem Relation Name Age of Onset Hypertension Maternal Grandmother Fior Diabetes Maternal Grandmother Fior Cancer Maternal Grandfather Fior Heart failure Maternal Grandfather Fior Cancer Paternal Grandfather Rajat Seizures Sister Nicole SURGICAL HISTORY Past Surgical History: Procedure Laterality Date MOUTH SURGERY 2018 MYRINGOTOMY W/ TUBES 2002 REVIEW OF SYSTEMS Review of Systems: Review of Systems Constitutional: Negative. HENT: Negative. Eyes: Negative. Respiratory: Negative. Cardiovascular: Negative. Gastrointestinal: Negative. Genitourinary: Negative. Musculoskeletal: Negative. Skin: Negative. Neurological: Negative. All other systems reviewed and are negative. Hematological: Negative. Endocrine: Negative. Allergic/Immunologic: Negative. OBJECTIVE Objective: Physical Exam Constitutional: Appearance: Normal appearance. She is well-developed. Genitourinary: Vulva normal. Cardiovascular: Rate and Rhythm: Normal rate and regular rhythm. Pulmonary: Effort: Pulmonary effort is normal. Breath sounds: Normal breath sounds. Abdominal: General: Bowel sounds are normal. There is no distension. Palpations: Abdomen is soft. Tenderness: There is no abdominal tenderness. There is no guarding or rebound. Musculoskeletal: General: No swelling. Normal range of motion. Right lower leg: No edema. Left lower leg: No edema. Neurological: Mental Status: She is alert and oriented to person, place, and time. Skin: General: Skin is warm and dry. Psychiatric: Mood and Affect: Mood normal. Behavior: Behavior normal. Vitals and nursing note reviewed. Exam conducted with a digital marketing intern present. Vitals: Estimated body mass index is 38.28 kg/m as calculated from the following: Height as of 11/21/23: 5' 4 . Weight as of this encounter: 223 lb. BP: 120/80 Patient's last menstrual period was 05/06/2024. ASSESSMENT & PLAN ICD-10-CM 1. 11 weeks gestation of Z3A.11 POCT urinalysis dipstick manually resulted 2. First trimester Z34.91 POCT urinalysis dipstick manually resulted 3. History of placental abnormality Z87.59 4. Vaginal discharge N89.8 SURESWAB(R) ADVANCED VAGINITIS PLUS, TMA CHLAMYDIA TRACHOMATIS (GENITO/STI) Neisseria gonorrhea DNA probe, direct 5. Urethral cyst N36.8 New OB: Patient presents today for 1st time obstetrics appointment with provider. Patient is currently 11w1d . Patients history has been reviewed in great detail including any potential risks. Patient stated she currently has no complaints. Expectations throughout regarding labs, ultrasounds, and appointments have been discussed with the patient in detail. It was reiterated that the patient is to drink 6-8 glasses of water a day, eat 6 small meals a day, do not consume raw or undercooked meat, and stay away from [facility]. Patient has been consulted regarding any further do's and don'ts of . Patient voiced understanding and all questions and concerns were answered. Cultures obtained. Pt being referred to [facility] for h/o placental abnormality (vasa previa). Pt has cyst on urethra- referred to urologist Orders Placed This Encounter Procedures CHLAMYDIA TRACHOMATIS (GENITO/STI) Neisseria gonorrhea DNA probe, direct POCT urinalysis dipstick manually resulted Follow Up: Patient is to return in 4 weeks for routine OB appointment. Documented by Brittany Christensen LPN on behalf of: Rebeca Hidalgo DO documented in this encounter [facility] 05-24-2023 History of Present illness Narrative Hesham Avalos is a 22 y.o. female presents with chief complaint of Establish Care HPI: Patient presents today for MANAGER [employer]OMOT[employer] appointment- to establish care with new provider. SUBJECTIVE: MEDICATIONS: Current Outpatient Medications Medication Instructions Jebtek-EaGqnn-Disei-FA-Seltzer 3 (Duet DHA 400) 25-1 & 400 [...] tenderness or frontal sinus tenderness. Mouth/Throat: Lips: [place]. Mouth: Mucous membranes are moist. Pharynx: Oropharynx [...] follow-ups on file. documented in this encounter [facility] 04-12-2023 History of Present illness Narrative Headache/epigastric [...] Drug Allergies CURRENT MEDICATIONS: Current Outpatient Medications: [id number] (DUET DHA WITH OMEGA-3) 25 mg iron-1 [...] insurance preference.., Disp: 100 each, Rfl: 1 [id number] 25 mg iron-1 mg -400 mg combo [...] patient is in complete care of her acidizer. Patient does have ultrasound and office visit scheduled with us. Thank you for allowing me to participate in the care of Hesham Avalos. If there any questions please do not hesitate to contact us. Daniella Reina MD Maternal- Medicine [facility] [address] [place] [address] [facility], the CDC, and other organizations representing maternal and public health professionals recommend that , , and lactating people and those considering receive the COVID-19 vaccination. Vaccination is the best method to reduce maternal and complications of SARS-CoV-2 infection. This document was created with [employer] technology. Though I make every effort to review the dictation as it is transcribed, on occasion the spoken word can be misinterpreted by the technology leading to inappropriate words, phrases, or sentences. This note is addressed to the requesting provider as a consultation for clinical guidance. Specific medical abbreviations are occasionally used and those are generally approved by the [place]?Board of?Obstetrics and?Gynecology?as well as?[employer] abbreviations. The above plan of care was based solely on the diagnoses for which a consultation was requested. ?More frequent testing may be indicated based on her other medical/obstetrical conditions. The management of other or medical conditions is beyond the scope of requested consultation and will continue to be followed by the primary acidizer or primary care provider. Note to patient: [...] of the practitioner. documented in this encounter [facility] Evaluation note Diagnosis Encounter for wellness examination- Primary Anemia, unspecified type documented in this encounter [facility] HealthcareEvaluation note* Diagnosis 35 weeks gestation of - Primary Polyhydramnios affecting documented in this encounter [facility]* Diagnosis 11 weeks gestation of First trimester state, incidental History of placental abnormality Vaginal discharge Leukorrhea, not specified as infective Urethral cyst Other specified disorders of urethra documented in this encounter [facility] HealthcareEvaluation note* Diagnosis Second trimester state, incidental 15 weeks gestation of Diabetes mellitus screening Screening for diabetes mellitus documented in this encounter [facility] HealthcareInstructionsNot on filedocumented in this encounterPro[facility] SystemInstructionsNot on filedocumented in this [facility] Summary Purpose Family History No Family History Records FoundNo Family History Records FoundNo Family History Records FoundNo Family History Records FoundNo Family History Records Found Advance Directives No Advanced Directives Records FoundNo Advanced Directives Records FoundNo Advanced Directives Records FoundNo Advanced Directives Records FoundNo Advanced Directives Records Found Reason for Referral Specialty Diagnoses / Procedures Referred By Gioavny t Referred To Contact Daniella Reina MD [address] [facility] [place] [address] Referral ID Status Reason Start Date Expiration Date V isits Requested Visits Authorized [id number] Pending Review 1 1 Referral ID Status Reason Start Date Expiration Date V isits Requested Visits Authorized [id number] Pending Review 1 1 Additional Source Comments INFORMATION SOURCE (unrecogn ized section and content) DATE CREATED AUTHOR 10/05/2018 [facility] DATE CREATED AUTHOR AUTHOR'S ORGANIZ ATION 04/13/2022 [facility] DATE CREATED AUTHOR AUTHOR'S ORGANIZ ATION 07/27/2024 Satish Benson [facility] DATE CREATED AUTHOR AUTHOR'S ORGANIZ ATION 08/09/2024 Jamieson Marcelino [facility] DATE CREATED AUTHOR AUTHOR'S ORGANIZ ATION 08/23/[address] [facility] d[facility] Specialists [facility] Care Teams (unrecognized sec tion and content) History Card Clerk Relationship Specialty Start Date End Date Taisha Ortiz MD [address] [place] [address] PCP - General Family Medicine 05/03/23 History Card Clerk Relationship Specialty Start Date End Date Taisha Ortiz MD [address] [place] [address] PCP - General Family Medicine 05/03/23 History Card Clerk Relationship Specialty Start Date End Date Taisha Ortiz MD [address] [place] [address] PCP - General Family Medicine 05/03/23 History Card Clerk Relationship Specialty Start Date End Date Taisha Ortiz MD [address] [place] [address] PCP - General Family Medicine 05/03/23 History Card Clerk Relationship Specialty Start Date End Date Taisha Ortiz MD [address] [place] [address] PCP - General Family Medicine 05/03/23 History Card Clerk Relationship Specialty Start Date End Date Taisha Ortiz MD [address] [place] [address] PCP - General Family Medicine 05/03/23 History Card Clerk Relationship Specialty Start Date End Date Taisha Ortiz MD [address] [place] [address] PCP - General Family Medicine 05/03/23 Reason for Visit (unrecogniz ed section and content) Reason Comments Establish Care Reason Comments POSTERIOR LOW LYING PLACENTA Resolved Polyhydramnios Reason Comments Routine Visit FOR RECORDS PERTAINING TO PATIENTS WHO ARE [...] THE PRIMARY CLINICAL RECORDS. [facility] [employer] provides no warranty or guarantee of the accuracy or completeness of information in this document.
[2024-09-18 08:56] LABS: Glucose 1 Hour 104 mg/dL (<130)
== END 2024-09-18 07:30 | disposition home or self-care (01) ==
LOC: LAB 07:31
PROVIDERS: Visit Provider Obstetrics & Gynecology
DX: Z13.1 Encounter for screening for diabetes mellitus (principal)
CPT/HCPCS: 36415; 82950

== ENCOUNTER 2024-11-16 08:58 | Outpatient (OUT) | payer BC, SELFPAY ==
--- OUTSIDE RECORDS SUMMARY | 2024-11-14 11:20 | XMS_ITS | Encounter Summary ---
Author Organization [facility] Address [address] [place] [address] Care Team Providers Care Out Of Town Collection Clerk Name Role Phone Taisha Ortiz MD Primary Care Provider [phone] Stephanie Sotelo REGIONAL SALES LEADER Unavailable [phone] Reason for Visit * Reason Comments Routine Visit Encounter Details Date Type Department Care Team (Late Contact Info) Description 11/14/2024 11:20 AM EDT Routine [facility] [address] [place] [address] Kathie Lee PA [address] [place], [place] [id number] Second trimester ([facility]); 27 weeks gestation of ([facility]) Social History Tobacco Use Types Packs/Day Years Used Date Smoking Tobacco: Never Smokeless Tobacco: Never Alcohol Use Standard Drinks/Week Comments Not Currently 0 (1 standard drink = 0.6 oz pur e alcohol) Humiliation, Afraid, Rape, and Kick questionnair e Answer Date Recorded Within the last year, have y ou been afraid of your partner or ex-partner? No 05/17/2023 Within the last year, have y ou been humiliated or emotionally abused in other ways by your partner or ex-partner? No Within the last year, have y ou been kicked, hit, slapped, or otherwise physically hurt by your partner or ex-partner? No 05/17/2023 Within the last year, have y ou been raped or forced to have any kind of sexual activity by your partner or ex-partner? No 05/17/2023 Social Connection and Isolat ion Panel [NHANES] Answer Date Recorded In a typical week, how many times do you talk on the phone with family, friends, or neighbors? More than three times a week 05/17/2023 How often do you get togethe r with friends or relatives? Twice a week 05/17/2023 How often do you attend chur or congregational services? 1 to 4 times per year 05/17/2023 Do you belong to any clubs o r organizations such as pentecostal groups, unions, fraternal or athletic groups, or school groups? No 05/17/2023 How often do you attend meet ings of the clubs or organizations you belong to? Never 05/17/2023 Are you , , di vorced, , never , or living with a partner? 05/17/2023 AUDIT-C Answer Date Recorded Q1: How often do you have a drink containing alc ohol? 2-4 times a month 05/17/2023 Q2: How many drinks containi ng alcohol do you have on a typical day when you are drinking? 3 or 4 05/17/2023 Q3: How often do you have si x or more drinks on one occasion? Less than monthly 05/17/2023 Overall Financial Resource Strain (CARDIA) Answe r Date Recorded How hard is it for you to pa y for the very basics like food, housing, medical care, and heating? Not hard at all 05/17/2023 PHQ-2 Answer Date Recorded Patient Health Questionnaire-2 Score 0 05/24/2023 [facility] of Occupat ional Health - Occupational Stress Questionnaire Answer Date Recorded Do you feel stress - tense, restless, nervous, or anxious, or unable to sleep at night because your mind is troubled all the time - these days? Not at all 05/17/2023 Exercise Vital Sign Answer Date Recorde d On average, how many days pe r week do you engage in moderate to strenuous exercise (like a brisk walk)? 3 days 05/17/2023 On average, how many minutes do you engage in exercise at this level? 30 min 05/17/2023 Hunger Vital Sign Answer Date Recorded Within the past 12 months, y ou worried that your food would run out before you got the money to buy more. Never true 05/17/19 24 Within the past 12 months, t he food you bought just didn't last and you didn't have money to get more. Never true 05/17/2023 PRAPARE - Transportation Answer Date Re corded In the past 12 months, has l ack of transportation kept you from medical appointments or from getting medications? No 04/19 In the past 12 months, has l ack of transportation kept you from meetings, work, or from getting things needed for daily living? No 05/17/2023 Housing Stability Vital Sign Answer Reji e Recorded In the last 12 months, was t here a time when you were not able to pay the mortgage or rent on time? No 05/17/2023 In the last 12 months, how many places have you lived? 1 05/17/2023 In the last 12 months, was t here a time when you did not have a steady place to sleep or slept in a custodial (including now)? No 05/17/2023 Estimated Date of Delivery Comme nts Yes 02/10/2025 Based on last me nstrual period of 05/06/2024 Sex and Gender Information Value Date Recorded Sex Assigned at Female 10/07/2022 12:02 PM EDT Legal Sex Female 11:00 PM EDT Gender Identity Female 10/07/2022 12:02 PM EDT Sexual Orientation Straight 10/07/2022 12 :02 PM EDT documented as of this encounter Last Filed Vital Signs Vital Sign Reading Time Taken Comments Blood Pressure 122/64 11/14/2024 11:22 AM EDT Pulse - - Temperature - - Respiratory Rate - - Oxygen Saturation - - Inhaled Oxygen Concentration - - Weight 103 kg (226 lb 8 oz) 11/14/2024 11:22 AM EDT Height - - Body Mass Index 38.88 11/21/2023 2:10 PM EDT documented in this encounter Progress Notes * DIMAS Cormier - 11/14/2024 11:20 AM EDT Reason for Appointment: Patient ID: Shelby Avalos is a 24 y.o. female who presents for Routine Visit Patient presents today for Return OB appointment. MEDICATIONS Current Outpatient Medications Medication Instructions Ferrous Gluconate (IRON 27 PO) 1 each, Daily Qfzjxkzm-Pwy-Az-FA (PRE- PO) 1 each, Daily ALLERGIES No Known Allergies PROBLEMS Active Ambulatory Problems Diagnosis Date Noted No Active Ambulatory Problems Resolved Ambulatory Problems Diagnosis Date Noted Obesity affecting in second trimester ([facility]) 01/27/2023 Velamentous insertion of umbilical cord in second trimester ([facility]) 01/27/2023 Past Medical History: Diagnosis Date 6 weeks follow-up ([facility]) HISTORY PAST MEDICAL HISTORY SOCIAL HISTORY Past Medical History: Diagnosis Date 6 weeks follow-up ([facility]) Social History Tobacco Use Smoking status: Never [...] Exam Constitutional: Appearance: Normal appearance. She is normal weight. HENT: Head: Normocephalic. Cardiovascular: Rate and Rhythm: Normal rate. Pulses: Normal pulses. Pulmonary: Effort: Pulmonary effort is normal. Breath sounds: Normal breath sounds. Abdominal: Palpations: Abdomen is soft. Musculoskeletal: General: Normal range of motion. Neurological: General: No focal deficit present. Mental Status: She is alert and oriented to person, place, and time. Psychiatric: Mood and Affect: Mood normal. Behavior: Behavior normal. Thought Content: Thought content normal. Judgment: Judgment normal. Vitals and nursing note reviewed. Vitals: Estimated body mass index is 38.88 kg/m?? as calculated from the following: Height as of 11/21/23: 5' 4 . Weight as of this encounter: 226 lb 8 oz. BP: 122/64 Patient's last menstrual period was 05/06/2024. ASSESSMENT & PLAN ICD-10-CM 1. Second trimester ([facility]) Z34.92 POCT urinalysis dipstick manually resulted 2. 27 weeks gestation of ([facility]) Z3A.27 Return OB: Patient presents today for a routine obstetrics appointment. Patient is currently 27w3d . Patient states she is doing well but has complaints of being tired due to current . Patient has verbalizes frequent movement. labor precautions was discussed/given and patient was instructed to perform kick counts three times a day. Orders Placed This Encounter Procedures POCT urinalysis dipstick manually resulted Follow Up: Patient is to return to office in 2 week for routine OB appointment. Documented by DIMAS Cormier on behalf of: DIMAS Cormier documented in this encounter Plan of Treatment Upcoming Encounters Date Type Department Care Team (Late st Contact Info) Description 11/28/2024 8:30 AM EDT Routine [facility] [address] [place] [phone] Don Hidalgo DO [address] [place] [address] documented as of this encounter Procedures Procedure Name Priority Date/Time Associated Diagnosis Comments POCT URINALYSIS DIPSTICK Routine 11/14/2024 11:35 AM EDT Second trimester ([facility]) documented in this encounter Results * (ABNORMAL) POCT urinalysis dipstick manually resulted (11/14/2024 11:35 AM EDT) Color, UA Yellow Clarity, UA Clear Glucose, UA Negative Negative - 2000(110) ++++ mg/dL Bilirubin, UA Negative Negative - 4(70) +++ mg/dL Ketones, UA Negative Negative - 160(16) ++++ mg/dL Spec Grav, UA 1.015 1 - 1.03 Blood, UA Negative Negative - 50 Eulogio/mcL pH, UA 6.5 5 - 9 Protein, UA Positive Negative - 2000(20) ++++ mg/dL Comment:Small Urobilinogen, UA 0.2 0.2 - 12 mg/dL Leukocytes, UA Positive Negative - 500+++ Rufina/mcL Comment:Small Nitrite, UA Negative Negative - Positive Urine 11/14/2024 11:3 5 AM EDT Kathie COCHRAN POINT OF CARE TEST ENTER/EDIT OR DERABLES Final Result documented in this encounter Visit Diagnoses Diagnosis Second trimester ([facility]) state, incidental 27 weeks gestation of ([facility]) documented in this encounter Care Teams Out Of Town Collection Clerk Relationship Specialty Start Date End Date Taisha Ortiz MD [address] [place] [address] PCP - General Family Medicine 05/03/23 Stephanie Sotelo NP [address] [place] [address] PCP - Carloz Eduardo 07/16/24 documented as of this encounter
--- OUTSIDE RECORDS SUMMARY | 2024-11-16 09:05 | XMS_ITS | Encounter Summary ---
Author Organization [facility] Address [address] [place] [address] Care Team Providers Care Song Plugger Name Role Phone Taisha Ortiz MD Primary Care Provider [phone] Stephanie Sotelo LEAD BURNER SUPERVISOR Unavailable [phone] Encounter Details Date Type Department Care Team (Late st Contact Info) Description 07/17/2024 Abstract [facility] [address] [place] [id number] Don Hidalgo DO [address] [place] [address] Social History Tobacco Use Types Packs/Day Years [...] 05/17/2023 How often do you attend chur ch or rastafari services? 1 to 4 times per year 05/17/2023 Do you belong to any clubs o r organizations such as uatsdin groups, unions, fraternal or athletic groups, or [...] Recorded Patient Health Questionnaire-2 Score 0 05/24/2023 [facility] of Occupat ional [facility] - Occupational Stress Questionnaire Answer Date [...] place to sleep or slept in a chcf (including now)? No 05/17/2023 Estimated Date of Delivery Comme nts Yes 02/10/2025 Based on last me nstrual period of 05/06/2024 Sex and Gender Information Value Date Recorded Sex Assigned at Female 10/07/2022 12:02 PM EDT Legal Sex Female 11:00 PM EDT Gender Identity Female 10/07/2022 12:02 PM EDT Sexual Orientation Straight 10/07/2022 12 :02 PM EDT documented as of this encounter Plan of Treatment Upcoming Encounters Date Type Department Care Team (Late st Contact Info) Description 11/28/2024 8:30 AM EDT Routine [facility] [address] [place] [address] Don Hidalgo DO [address] [place] [address] documented as of this encounter Visit Diagnoses Not on filedocumented in this encounter Care Teams Song Plugger Relationship Specialty Start Date End Date Taisha Ortiz MD [address] [place] [address] PCP - General Family Medicine 05/03/23 Stephanie Sotelo NP [address] [id number] PCP - Carloz Eduardo 07/16/24 documented as of this encounter
--- OUTSIDE RECORDS SUMMARY | 2024-11-16 09:05 | XMS_ITS ---
Author Organization [facility] Source Produ ction (ClinicalSummary Clone) Address Unknown Care Team Providers Care Sheltered Workshop Executive Director Name Role Phone Unavailable Primary Care Physician Unavailab le Results * [UNITY] ANEUPLOIDY NIPT Performed by: [employer] Value Range Date Fraction 2.1% 07/17/2024 06 :20 am UTC Rh(D) NIPT RhD DETECTED 07/17/2024 06:2 0 am UTC Sex Chromosome Aneuploidy NOT DETECTED 06:20 am UTC Monosomy X LOW RISK <1 in 10,000 2024 06:20 am UTC Trisomy 13 LOW RISK <1 in 10,000 2024 06:20 am UTC Trisomy 18 LOW RISK <1 in 10,000 2024 06:20 am UTC Trisomy 21 LOW RISK <1 in 10,000 2024 06:20 am UTC Sex NOT ORDERED 07/17/2024 06:2 0 am UTC Gestation SNELL 07/18/19 06:20 am UTC For detailed report, see PDF See PDF 07/17/2024 06:20 am UTC 07/17/2024 06:2 0 am UTC Social History Observation Value Start Date End Date
--- OUTSIDE RECORDS SUMMARY | 2024-11-16 09:05 | XMS_ITS | Encounter Summary ---
Author Organization [facility] Address [address] [place] [address] Care Team Providers Care Community Outreach Specialist Name Role Phone Taisha Ortiz MD Primary Care Provider [phone] Stephanie Sotelo CLARK DRIVER Unavailable [phone] Encounter Details Date Type Department Care Team (Late st Contact Info) Description 11/14/2024 Bamboo flowsheet [facility] [address] [place] [address] Kathie Lee PA [address] [place] [address] Social History Tobacco Use Types Packs/Day Years [...] often do you attend chur ch or jainism services? 1 to 4 times per year 05/17/2023 Do you belong to any clubs o r organizations such as mosque groups, unions, fraternal or athletic groups, or [...] Recorded Patient Health Questionnaire-2 Score 0 05/24/2023 [facility] of Occupat ional [facility] - Occupational Stress Questionnaire Answer Date Recorded [...] place to sleep or slept in a long term (including now)? No 05/17/2023 Estimated Date of [...] AM EDT Routine [facility] [address] [address] Don Hidalgo DO [address] [place] [address] documented as of this encounter Visit Diagnoses Not on filedocumented in this encounter Care Teams Community Outreach Specialist Relationship Specialty Start Date End Date Taisha Ortiz MD [address] [place] [address] PCP - General Family Medicine 05/03/23 Stephanie Sotelo NP [address] [place] [address] PCP - Carloz Eduardo 07/16/24 documented as of this encounter
--- OUTSIDE RECORDS SUMMARY | 2024-11-16 09:05 | XMS_ITS | Encounter Summary ---
Author Organization [facility] Address [address] [place] [address] Care Team Providers Care Plastic Cnc Machine Operator Name Role Phone Taisha Ortiz MD Primary Care Provider Stephanie Sotelo SCIENCE TEACHER Unavailable [phone] Encounter Details Date Type Department Care Team (Latest Contact Info) Description 11/09/2024 Travel Social History Tobacco Use Types Packs/Day Years [...] often do you attend chur ch or tenriism services? 1 to 4 times per year 05/17/2023 Do you belong to any clubs o r organizations such as episcopal groups, unions, fraternal or athletic groups, or [...] Recorded Patient Health Questionnaire-2 Score 0 05/24/2023 [facility] of Occupat ional [facility] - Occupational Stress Questionnaire Answer Date Recorded [...] place to sleep or slept in a assisted (including now)? No 05/17/2023 Estimated Date of [...] 11/28/2024 8:30 AM EDT Routine [facility] [address] [address] Don Hidalgo DO [address] [place] [address] documented as of this encounter Visit Diagnoses Not on filedocumented in this encounter Care Teams Plastic Cnc Machine Operator Relationship Specialty Start Date End Date Taisha Ortiz MD [address] [facility], [place] [id number] PCP - General Family Medicine 05/03/23 Stephanie Sotelo NP [address] [place] [address] PCP - [place] [employer] 07/16/24 documented as of this encounter
--- OUTSIDE RECORDS SUMMARY | 2024-11-16 09:05 | XMS_ITS | Encounter Summary ---
Author Organization [facility] Address [address] [place] [address] Care Team Providers Care Aircraft Maintenance Technician Name Role Phone Taisha Ortiz MD Primary Care Provider [phone] Stephanie Sotelo PNEUMATIC TUBE FITTER Unavailable [phone] Encounter Details Date Type Department Care Team (Late st Contact Info) Description 09/24/2024 Abstract [facility] [address] [place] [address] [place] [address] Chano Dowell, [place] Social History Tobacco Use Types Packs/Day Years [...] often do you attend chur ch or mormon services? 1 to 4 times per year 05/17/2023 Do you belong to any clubs o r organizations such as baptist groups, unions, fraternal or athletic groups, or [...] Recorded Patient Health Questionnaire-2 Score 0 05/24/2023 [facility] - Occupational Stress Questionnaire Answer [...] AM EDT Routine [facility] [address] [place] [address] Don Hidalgo DO [address] [facility] [address] [place] [address] documented as of this encounter Visit Diagnoses Not on filedocumented in this encounter Care Teams Aircraft Maintenance Technician Relationship Specialty Start Date End Date Taisha Ortiz MD [address] [place] [id number] PCP - General Family Medicine 05/03/23 Stephanie Sotelo NP [address] [place] [address] PCP - [place] Commercial 07/16/24 documented as of this encounter
--- OUTSIDE RECORDS SUMMARY | 2024-11-16 09:05 | XMS_ITS | Encounter Summary ---
Author Organization [facility] Address [address] [place] [address] Care Team Providers Care Implant Coordinator Name Role Phone Taisha Ortiz MD Primary Care Provider [phone] Stephanie Sotelo NAPHTHOL SOAPING MACHINE OPERATOR Unavailable [phone] Encounter Details Date Type Department Care Team (Late st Contact Info) Description 10/28/2024 Abstract [facility] [address] [address] Don Hidalgo DO [address] [facility] [place] [address] Social History Tobacco Use Types Packs/Day Years [...] often do you attend chur ch or latter day services? 1 to 4 times per year 05/17/2023 Do you belong to any clubs o r organizations such as quaker groups, unions, fraternal or athletic groups, or [...] Recorded Patient Health Questionnaire-2 Score 0 05/24/2023 [facility] of Occupat ional [facility] - Occupational Stress Questionnaire Answer Date Recorded [...] place to sleep or slept in a halfway (including now)? No 05/17/2023 Estimated Date of [...] EDT Routine [facility] [address] [place] [address] Don Hidalgo DO [address] [facility] [place] [address] documented as of this encounter Visit Diagnoses Not on filedocumented in this encounter Care Teams Implant Coordinator Relationship Specialty Start Date End Date Taisha Ortiz MD [address] [place] [address] PCP - General Family Medicine 05/03/23 Stephanie Sotelo NP [address] [id number] PCP - Carloz Eduardo 07/16/24 documented as of this encounter
--- OUTSIDE RECORDS SUMMARY | 2024-11-16 09:05 | XMS_ITS | Encounter Summary ---
Author Organization [facility] Address [address] [place] [address] Care Team Providers Care Cardiac Monitor Name Role Phone Taisha Ortiz MD Primary Care Provider [phone] Stephanie Sotelo SUPPORT SERVICES SPECIALIST Unavailable Encounter Details Date Type Department Care Team (Late st Contact Info) Description 09/23/2024 External Result Encounter [facility] [address] [place] [id number] Rebeca Hidalgo DO [address] [place], [place] [id number] Social History Tobacco Use Types Packs/Day Years [...] often do you attend chur ch or anabaptism services? 1 to 4 times per year [...] [facility] - Occupational Stress Questionnaire Answer Date [...] place to sleep or slept in a correction (including now)? No 05/17/2023 Estimated Date of [...] AM EDT Routine [facility] [address] [place] [id number] Rebeca Hidalgo DO [address] [facility] [place] [address] documented as of this encounter Procedures Procedure Name Priority Date/Time Associated Diagnosis Comments US OB 14+ WEEKS ANATOMY SCAN 09/23/2024 1:55 PM EDT documented in this encounter Results * US OB 14+ weeks anatomy scan (09/23/2024 1:55 PM EDT) Anatomical Region Laterality Modality Body Ultrasound 09/23/2024 1:55 PM EDT Narrative 09/23/2024 1:55 PM EDT THIS EXAM WAS PERFORMED AT [facility] NAME: CLAUDIA DAHL : 2000 SEX: F Accession Number: [id number] ORDERING PHYSICIAN: CINTIA BANEGAS REFERRING PHYSICIAN: REBECA HIDALGO Coding ----- --------- Procedures 52771: Ultrasound, uterus, real time with image documentation, and maternal evaluation plus detailed anatomic examination, transabdominal approach;single or first gestation 44401: Transvaginal Ultrasound (OB) Indication ----- --------- Screening for Anatomic Survey, Screening for cervical length, Obesity in , h/o vasa previa that resolved in prior History ----- --------- OB History 3. Para 2 T2 Current ----- --------- Cell free DNA low risk analysis Maternal Assessment ----- --------- Physical Exam Height 163 cm, 5 ft 4 in. Initial weight 101 kg, 222 lb. Initial BMI 38.11 kg/m??? Method ----- --------- Transabdominal and transvaginal ultrasound examination. View: Suboptimal view: limited by position and maternal body habitus. ----- --------- Rivera . Number of fetuses: 1 Dating ----- --------- LMP on: 05/06/2024 GA by LMP 20 w + 0 d RAY by LMP: 02/10/2025 Ultrasound examination on: 09/23/2024 GA by U/S based upon: AC, BPD, Femur, HC GA by U/S 20 w + 4 d RAY by U/S: 02/06/2025 Assigned: based on the LMP, selected on 09/23/2024 Assigned GA 20 w + 0 d Assigned RAY: 02/10/2025 General Evaluation ----- --------- Cardiac activity Present. FHR 158 bpm. Presentation: breech Placenta: Placental site: posterior, away from cervical os Umbilical cord: Cord vessels: 3 vessel cord. Insertion site: normal insertion Amniotic fluid: Amount of AF: normal amount Biometry ----- --------- Standard BPD 46.6 mm 20w 1d 54% Hadlock OFD 68.8 mm 23w 0d >99% Heri HC 186.3 mm 21w 0d 83% Hadlock Cerebellum tr 21.2 mm 20w 1d 79% Hill Nuchal fold 5.5 mm AC 156.8 mm 20w 6d 72% Hadlock Femur 32.3 mm 20w 0d 45% Hadlock Humerus 31.1 mm 20w 2d 67% Heri HC / AC 1.19 68% Hadlock EFW 359 g 74% Hadlock EFW (lb) 0 lb EFW (oz) 13 oz EFW by: Hadlock ([id number]) Extended Tibia 28.7 mm 20w 3d 71% Heri Metal Fabricator Helper 8.2 mm CM 5.6 mm 70% Nicolaides Nasal bone 7.4 mm Head / Face / Neck Cephalic index 0.68 <1% Nicolaides Nasal bone: present Extremities / Bony Struc FL / BPD 0.69 43% Hadlock FL / HC 0.17 5% Hadlock FL / AC 0.21 19% Hadlock Other Structures FHR 158 bpm Anatomy ----- --------- The following structures appear normal: Head/Neck: Cranium. Lateral ventricles. Choroid plexus. Midline falx. Cavum septi pellucidi. Cerebellum. Cisterna magna. Parenchyma. Vermis. Neck. Nuchal fold. Face: Nasal bone. Heart/Thorax: Situs. Bicaval view. Cardiac position. Cardiac axis. Cardiac size. Cardiac rhythm. Abdomen: Abdom. wall. Cord insertion. Stomach. Kidneys. Bladder. Small bowel. Large bowel. Right renal artery. Left renal artery. Genitals. Extremities/Skeleton: Right upper arm. Right forearm. Right hand. Left upper arm. Left forearm. Right upper leg. Right lower leg. Right foot. Left upper leg. Left lower leg. Left foot. The following structures could not be adequately visualized: Face Profile. Heart / Thorax 4-chamber view. RVOT view. LVOT view. 3-vessel view. Ductal arch view. Diaphragm. Spine: Cervical spine. The following structures could not be examined: Face Lips. Nose. Maxilla. Mandible. Orbits. Heart / Thorax 8-lfdtlc-acffbsl view. Aortic arch view. Interventricular septum. Great vessels. Right lung. Left lung. Spine Thoracic spine. Lumbar spine. Sacral spine. Extremities / Left hand. Skeleton Maternal Structures ----- --------- Uterus Visualized Cervix Visualized Cervical length 3.91 cm Right Ovary Not visualized Left Ovary Not visualized Cul de Sac Visualized Impression ----- --------- Single viable intrauterine consistent with 20w 0d with an RAY of 02/10/2025. Transvaginal cervical length measures 3.91 cm. Recommendations ----- --------- Please see [facility] documentation from today. Follow-up in 4-6 weeks is scheduled for completion of the anatomic survey Subsequent follow up or other follow up as clinically determined by primary OB provider unless otherwise specified by [facility]. Results forwarded to ordering provider so they can follow up with the patient as necessary. The copy-to physician of this order is REBECA King The ordering physician of this order is CINTIA Hartmann Procedure Note Radiology, Radiologist, - 09/23/2024 THIS EXAM WAS PERFORMED AT [facility] NAME: CLAUDIA DAHL : 2000 SEX: F Accession Number: [id number] ORDERING PHYSICIAN: CINTIA BANEGAS REFERRING PHYSICIAN: REBECA HIDALGO Coding ----- --------- Procedures [id number]: Ultrasound, uterus, real time with imagedocumentation, and maternal evaluation plus detailed anatomic examination, transabdominalapproach;single or first gestation 10892: Transvaginal Ultrasound (OB) Indication ----- --------- Screening for Anatomic Survey, Screening for cervical length, Obesity inpregnancy, h/o vasa previa that resolved in prior History ----- --------- OB History 3. Para 2 T2 Current ----- --------- Cell free DNA low risk analysis Maternal Assessment ----- --------- Physical Exam Height 163 cm, 5 ft 4 in. Initial weight 101 kg, 222 lb.Initial BMI 38.11 kg/m??? Method ----- --------- Transabdominal and transvaginal ultrasound examination. View: Suboptimalview: limited by position and maternal body habitus. ----- --------- Rivera . Number of fetuses: 1 Dating ----- --------- LMP on: 05/06/2024 GA by LMP 20 w + 0 d RAY by LMP: 02/10/2025 Ultrasound examination on: 09/23/2024 GA by U/S based upon: AC, BPD, Femur, HC GA by U/S 20 w + 4 d RAY by U/S: 02/06/2025 Assigned: based on the LMP, selected on 09/23/2024 Assigned GA 20 w + 0 d Assigned RAY: 02/10/2025 General Evaluation ----- --------- Cardiac activity Present. FHR 158 bpm. Presentation: breech Placenta: Placental site: posterior, away from cervical os Umbilical cord: Cord vessels: 3 vessel cord. Insertion site: normalinsertion Amniotic fluid: Amount of AF: normal amount Biometry ----- --------- Standard BPD 46.6 mm 20w 1d 54% Hadlock OFD 68.8 mm 23w 0d >99% Heri HC 186.3 mm 21w 0d 83% Hadlock Cerebellum tr 21.2 mm 20w 1d 79% Hill Nuchal fold 5.5 mm AC 156.8 mm 20w 6d 72% Hadlock Femur 32.3 mm 20w 0d 45% Hadlock Humerus 31.1 mm 20w 2d 67% Heri HC / AC 1.19 68% Hadlock EFW 359 g 74% Hadlock EFW (lb) 0 lb EFW (oz) 13 oz EFW by: Hadlock ([id number]-FL) Extended Tibia 28.7 mm 20w 3d 71% Heri Metal Fabricator Helper 8.2 mm CM 5.6 mm 70% Nicolaides Nasal bone 7.4 mm Head / Face / Neck Cephalic index 0.68 <1% Nicolaides Nasal bone: present Extremities / Bony Struc FL / BPD 0.69 43% Hadlock FL / HC 0.17 5% Hadlock FL / AC 0.21 19% Hadlock Other Structures FHR 158 bpm Anatomy ----- --------- The following structures appear normal: Head/Neck: Cranium. Lateral ventricles. Choroid plexus. Midline falx.Cavum septi pellucidi. Cerebellum. Cisterna magna. Parenchyma. Vermis. Neck. Nuchal fold. Face: Nasal bone. Heart/Thorax: Situs. Bicaval view. Cardiac position. Cardiac axis. Cardiacsize. Cardiac rhythm. Abdomen: Abdom. wall. Cord insertion. Stomach. Kidneys. Bladder. Smallbowel. Large bowel. Right renal artery. Left renal artery. Genitals. Extremities/Skeleton: Right upper arm. Right forearm. Right hand. Leftupper arm. Left forearm. Right upper leg. Right lower leg. Right foot. Left upper leg. Left lower leg. Left foot. The following structures could not be adequately visualized: Face Profile. Heart / Thorax 4-chamber view. RVOT view. LVOT view. 3-vessel view. Ductalarch view. Diaphragm. Spine: Cervical spine. The following structures could not be examined: Face Lips. Nose. Maxilla. Mandible. Orbits. Heart / Thorax 7-bawuhv-psffnky view. Aortic arch view. Interventricularseptum. Great vessels. Right lung. Left lung. Spine Thoracic spine. Lumbar spine. Sacral spine. Extremities / Left hand. Skeleton Maternal Structures ----- --------- Uterus Visualized Cervix Visualized Cervical length 3.91 cm Right Ovary Not visualized Left Ovary Not visualized Cul de Sac Visualized Impression ----- --------- Single viable intrauterine consistent with 20w 0d with an RAY of02/10/2025. Transvaginal cervical length measures 3.91 cm. Recommendations ----- --------- Please see [facility] documentation from today. Follow-up in 4-6 weeks isscheduled for completion of the anatomic survey Subsequent follow up or other follow up as clinically determined byprimary OB provider unless otherwise specified by [facility]. Results forwarded to ordering provider so they can follow up with thepatient as necessary. The copy-to physician of this order is REBECA King The ordering physician of this order is CINTIA Hartmann us Rebeca Hidalgo DO IMG OB US PROCEDURES Final Resul t documented in this encounter Visit Diagnoses Not on filedocumented in this encounter Care Teams Cardiac Monitor Relationship Specialty Start Date End Date Taisha Ortiz MD [address] [place], [place] [id number] PCP - General Family Medicine 05/03/23 Stephanie Sotelo NP [address] [place], [place] [id number] PCP - Carloz Eduardo 07/16/24 documented as of this encounter
--- OUTSIDE RECORDS SUMMARY | 2024-11-16 09:05 | XMS_ITS | Encounter Summary ---
Author Organization [facility] Address [address] [place] [address] Care Team Providers Care Recreation Supervisor Name Role Phone Taisha Ortiz MD Primary Care Provider [phone] Stephanie Sotelo T[employer]PENTER Unavailable [phone] Encounter Details Date Type Department Care Team (Late st Contact Info) Description 07/23/2024 Abstract [facility] [address] [place] [phone] Don Hidalgo DO [address] [place] [address] Social History Tobacco Use Types Packs/Day Years [...] often do you attend chur ch or christianity services? 1 to 4 times per year 05/17/2023 Do you belong to any clubs o r organizations such as jew groups, unions, fraternal or athletic groups, or [...] Recorded Patient Health Questionnaire-2 Score 0 05/24/2023 [facility] - Occupational Stress Questionnaire Answer Date Recorded [...] place to sleep or slept in a group home (including now)? No 05/17/2023 Estimated Date of [...] EDT Routine [facility] [address] [place] [address] Don Hidalgo DO [address] [place] [address] documented as of this encounter Visit Diagnoses Not on filedocumented in this encounter Care Teams Recreation Supervisor Relationship Specialty Start Date End Date Taisha Ortiz MD [address] [place] [address] PCP - General Family Medicine 05/03/23 Stephanie Sotelo NP [address] [id number] PCP - Carloz Eduardo 07/16/24 documented as of this encounter
--- OUTSIDE RECORDS SUMMARY | 2024-11-16 09:05 | XMS_ITS | CCD ---
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 Name Role Phone DR REBECA HIDALGO Admitting Unavailable ROCKY, DR JOSE Attending Unavailable MISC, DR HENDERSON Primary Care Unavailable ROCKY, DR JOSE Consulting Unavailable Diana MACK, Taisha Primary Care Provider Unavailable Primary Care Provider Unavailabl e Unavailable Primary Care Provider Unavailabl e ROCKY, REBECA R Referring Unavailable CINTIA ALLEN Attending Unavailable ROCKY, REBECA R Referring Unavailable JIM MENDEZ Primary Care Physician Darin RICHARD Attending Unavailable Darin RICHARD Attending Unavailable ROCKY, Rebeca R Referring Unavailable Ashleigh SAMPLE PREPARATION SUPERVISOR, Stephanie Villagran Unavailable REBECA HIDALGO Attending Unavailable ROCKY, REBECA Attending Unavailable KATHIE ROMAN Attending Unavailable ROCKY, REBECA Attending Unavailable ROCKY, REBECA Attending Unavailable ROCKY, REBECA R Referring Unavailable Medications Current Medications Medication Drug Class(es) Dates Sig (Normalized) Sig (Original) blood-glucose meter misc (4 sources) Start: 04-12-2023 blood-glucose meter misc Check blood sugar 4-5 times daily, fasting and 1 hour after meals. Use as directed. Dispense per insurance preference. 1 each 04/12/2023 Active Start: 04-12-2023 blood-glucose meter misc Check blood sugar 4-5 times daily, fasting and 1 hour after meals. Use as directed. Dispense per insurance preference. 1 each 0 04/12/2023 Active cephalexin 500 mg oral capsule (1 source) Cephalosporin Antibacterial Start: 08-05-2024 take 1 capsule by mouth once daily Keflex 500 mg Cap 500 mg = 1 cap(s), Oral, Daily, take one day before procedure and take one day after procedure, # 2 cap(s), Refills(s) 0, Pharmacy: [facility] [id number], 163, cm, 08/05/24 13:19:00 EDT, Height/Length Dosing, 100, kg, 08/05/24 13:19:00 EDT, Weight Dosing Start Date: 08/05/24 Status: Ordered Quantity: 2.0 Unit: cap(s) Repeat number: 1 ferrous gluconate (16 sources) take 1 dose by mouth once daily Ferrous Gluconate (IRON 27 PO) Take 1 each by mouth Daily Active ferrous sulfate 140 mg extended release oral tablet (5 sources) Start: 08-05-2024 ferrous sulfate (as elemental iron) 45 mg oral tablet, extended release 27 mg, Oral, Daily, Refills(s) 0 Start Date: 08/05/24 Status: Ordered Repeat number: 1 ferrous sulfate (HIGH POTENCY IRON) 27 mg iron tablet Take by mouth. Active Bueael-KjQkwg-Fcozh-FA-Denver 3 (Duet DHA 400) 25-1 & 400 MG misc (2 sources) Jnwkbf-PtCuun-Ig gek-ML-Zzjov 3 (Duet DHA 400) 25-1 & 400 MG misc Take by mouth. 0 Active Jwldtdgb-Yew-Qq-FA (PRE-SIGIFREDO PO) (16 sources) take 1 dose by mouth once daily Jnujxgto-Rat-Rq-FA (PRE- PO) Take 1 each by mouth Daily Active Multivitamins (1 source) Start : 07-31 take 1 tablet by mouth once daily Multivitamins 1 tab(s), Oral, Daily, Refill(s) 0 Start Date: 07/31/24 Status: Ordered Repeat number: 1 amc328-xoyy-wiqcc-a m3 (DUET DHA WITH OMEGA-3) 25 mg iron-1 mg -400 mg combo pack (4 sources) lrm712- lhrk-olsvh-am5 (DUET DHA WITH OMEGA-3) 25 mg iron-1 mg -400 mg combo pack Take by mouth. Active ujn303- fwux-csrsn-hu2 (DUET DHA WITH OMEGA-3) 25 mg iron-1 mg -400 mg combo pack Take by mouth. 0 Active yxe502-kuvu-lhkdv-x m3 25 mg iron-1 mg -400 mg combo pack (4 sources) nnd330- ongk-xwfrx-oi2 25 mg iron-1 mg -400 mg combo pack Take by mouth. Active gxl754- ctyb-kryjt-jl2 25 mg iron-1 mg -400 mg combo pack Take by mouth. 0 Active Problems Active Problems Problem Classification Problem Date Documented Date Episodic/Chronic Deficiency and other anemia (1 source) Anemia; Translations: [Anemia, unspecified] 05-24-2023 Episodic Hemorrhage during ; abruptio placenta; placenta previa (10 sources) Placenta previa; Translations: [Complete placenta previa NOS or without hemorrhage, second trimester] Onset: 01-27-2023 Resolved: 04-12-2023 04-12-2023 Episodic Immunizations and screening for infectious disease (1 source) Encounter for screening for human papillomavirus (HPV); Translations: [ENC SCREENING HUMAN PAPILLOMAVIRUS] Onset: 02-27-2022 Episodic Other complications of (1 source) Obesity complicating , second trimester; Translations: [Obesity complicating , second trimester] Onset: 01-27-2023 Chronic Other complications of (2 sources) History of hemorrhage; Translations: [Supervision of with other poor reproductive or obstetric history, second trimester] 09-23-2024 Episodic Other complications of (1 source) Supervision of with other poor reproductive or obstetric history, second trimester; Translations: [Supervision of with other poor reproductive or obstetric history, second trimester] Onset: 10-24-2024 Episodic Other diseases of bladder and urethra (1 source) Urethral cyst; Translations: [Other specified disorders of urethra] 07-23-2024 Episodic Other female genital disorders (1 source) Dyspareunia; Translations: [Unspecified dyspareunia] Onset: 10-07-2024 Chronic Other female genital disorders (1 source) Pain in female genitalia on intercourse 08-05-2024 Chronic Other female genital disorders (1 source) Vaginal discharge; Translations: [Other specified noninflammatory disorders of vagina] 07-23-2024 Episodic Other and delivery including normal (9 sources) First trimester ; Translations: [Encounter for supervision of normal , unspecified, first trimester] 07-23-2024 Episodic Other screening for suspected conditions (not mental disorders or infectious disease) (11 sources) Encounter for screening for malignant neoplasm of cervix; Translations: [Patient encounter status] Onset: 02-24-2022 Episodic Polyhydramnios and other problems of amniotic cavity (4 sources) Polyhydramnios; Translations: [Polyhydramnios, unspecified trimester, not applicable or unspecified] Onset: 10-24-2024 04-12-2023 Episodic Residual codes; unclassified (1 source) Gestation period, 11 weeks; Translations: [11 weeks gestation of ] 07-23-2024 Episodic Residual codes; unclassified (1 source) H/O: Disorder; Translations: [Personal history of other complications of , childbirth and the puerperium] 07-23-2024 Episodic Residual codes; unclassified (2 sources) Gestation period, 15 weeks; Translations: [15 weeks gestation of ] 08-20-2024 Episodic Residual codes; unclassified (2 sources) Gestation period, 19 weeks; Translations: [19 weeks gestation of ] 09-17-2024 Episodic Residual codes; unclassified (2 sources) Gestation period, 23 weeks; Translations: [23 weeks gestation of ] 10-17-2024 Episodic Residual codes; unclassified (2 sources) Gestation period, 27 weeks; Translations: [27 weeks gestation of ] 11-14-2024 Episodic Past or Other Problems Problem Classification Problem Date Documented Da te Episodic/Chronic Mood disorders (4 sources) Mood disorders Onset: 01-31-2021 01-31-2021 Other complications of (20 sources) Maternal obesity complicating , childbirth and the puerperium, antepartum; Translations: [Obesity complicating , second trimester] Onset: 01-27-2023 Resolved: 04-25-2023 05-24-2023 Chronic Residual codes; unclassified (1 source) Gestation period, 35 weeks; Translations: [35 weeks gestation of ] 04-12-2023 Episodic Umbilical cord complication (20 sources) Velamentous insertion of umbilical cord; Translations: [Velamentous insertion of umbilical cord, second trimester] Onset: 01-27-2023 Resolved: 04-25-2023 05-24-2023 Episodic NEGATED: Highlighted row has been ruled out!Unclassified (16 sources) No known active problems 05-24-2023 Results Test Name Value Interpretation Reference Range Facility Urinalysis macro (dipstick) panel (U)on 11-14-2024 Bilirubin, UA Negative Negative - 4(70) +++ mg/dL [facility] Blood, UA Negative Negative - 50 Eulogio/mcL [facility] Clarity, UA Clear [facility] re Color, UA Yellow [facility] Glucose, UA Negative Negative - 1999(110) ++++ mg/dL [facility] Interpretation and review of laboratory results Abnormal [facility] Ketones, UA Negative Negative - 160(16) ++++ mg/dL [facility] Leukocytes, UA Positive Negative - 500+++ Rufina/mcL [facility] Comment on above: Small Nitrite, UA Negative Negative - Positive [facility] pH, UA 6.5 5 - 9 [facility] Protein, UA Positive Negative - 1999(20) ++++ mg/dL [facility] Comment on above: Small Spec Grav, UA 1.015 1 - 1.03 [facility] Urobilinogen, UA 0.2 0.2 - 12 mg/dL [facility] Urinalysis macro (dipstick) panel (U)on 10-17-2024 Bilirubin, UA Negative Negative - 4(70) +++ mg/dL [facility] Blood, UA Negative Negative - 50 Eulogio/mcL [facility] Clarity, UA Clear [facility] Color, UA Yellow [facility] Glucose, UA Negative Negative - 1999(110) ++++ mg/dL [facility] Interpretation and review of laboratory results Normal [facility] Ketones, UA Negative Negative - 160(16) ++++ mg/dL [facility] Leukocytes, UA Negative Negative - 500+++ Rufina/mcL [facility] Nitrite, UA Negative Negative - Positive [facility] pH, UA 7 5 - 9 [facility] Protein, UA Negative Negative - 1999(20) ++++ mg/dL [facility] Spec Grav, UA 1.02 1 - 1.03 [facility] Urobilinogen, UA 0.2 0.2 - 12 mg/dL [facility] Ambulatory Visit Summaryon 0 10-07-2024 Ambulatory Visit Summary Ambulatory Visit Summary HESHAM AVALOS :2000 Visit Date:10/07/2024 Ambulatory Visit Instructions Your Diagnosis Dyspareunia, female Your Care Team Attending Physician - Darin RICHARD MD Primary Care Physician - JIM MENDEZ MD This Is Your Medications List Contact prescribing physician if questions or concerns cephalexin (Keflex 500 mg Cap) ferrous sulfate (ferrous sulfate (as elemental iron) 45 mg oral tablet, extended release) multivitamin, ( Multivitamins) Procedures Performed Extraction of wisdom tooth (03/20/2018), Mouth care, Myringotomy and insertion of T tube, Tympanostomy. Discharge Vitals Heart Rate (Peripheral) 66 Blood Pressure 128/68 Height 163 cm Height 64 in Weight 100 kg Weight 220.462 lb BMI 37.64 What to do next You Need to Schedule the Following Appointments Follow Up with TINO MACK, Darin Cummins, SHERIN When: Only if needed Where: [facility] [address], [place] [address]- [phone] Medications What How Much When Instructions Unchanged cephalexin (Keflex 500 mg Cap) 1 Capsules By Mouth Every day take one day before procedure and take one day after procedure Contact prescribing physician if questions or concerns Unchanged ferrous sulfate (ferrous sulfate (as elemental iron) 45 mg oral tablet, extended release) 27 Milligram By Mouth Every day Contact prescribing physician if questions or concerns Unchanged multivitamin, ( Multivitamins) 1 Tablets By Mouth Every day Contact prescribing physician if questions or concerns Medications and Immunizations Administered Given lidocaine Top 2% Gel w/Appl 6 mL, 6 mL, Topical. For: Dyspareunia, female Allergies No Known Allergies Problems Ongoing - Any problem that you are currently receiving treatment for. Dyspareunia, female Velamentous insertion of umbilical cord in second trimester Patient Survey You may receive a survey via text or e-mail asking about your office visit. Please share your experience with us by completing your survey. We appreciate your feedback and thank you for choosing us for your care. Education Materials Dyspareunia, Female Dyspareunia is pain that is associated with sexual activity. This can affect any part of the genitals or lower abdomen. There are many possible causes of this condition. In some cases, diagnosing the cause of dyspareunia can be difficult. This condition can be mild, moderate, or severe. Depending on the cause, dyspareunia may get better with treatment, but it may return (recur) over time. What are the causes? The cause of this condition is not always known. However, problems that affect the outer female genital area (vulva), the vagina, the uterus, and other organs may cause dyspareunia. Common causes of this condition include: ??? Vaginal dryness. ??? Giving . ??? Infection. ??? Skin changes or conditions. ??? Side effects of medicines. ??? A condition of severe pain and tenderness of the vulva when it is touched (vulvodynia). ??? Endometriosis. This is when tissue that is like the lining of the uterus grows on the outside of the uterus. ??? Psychological conditions. These include depression, anxiety, or traumatic experiences. ??? Allergic reaction. What increases the risk? The following factors may make you more likely to develop this condition: ??? History of physical or sexual trauma. ??? Some medicines. ??? No longer having a monthly period (menopause). ??? Having recently given . ??? Taking baths using soaps that have perfumes. These can cause irritation. ??? Douching. What are the signs or symptoms? The main symptom of this condition is pain in any part of your genitals or lower abdomen during or after sex. This may include: ??? Pain and tenderness of the vulva when it is touched. ??? Irritation, burning, or stinging sensations in your vulva. ??? Aching and throbbing pain that may be constant. ??? Pain that gets worse when something is inserted into your vagina. How is this diagnosed? This condition may be diagnosed based on: ??? Your symptoms, including where and when your pain occurs. ??? Your medical history. ??? A physical exam. A pelvic exam will most likely be done. ??? Tests, including blood tests and tests that check the body for infection. ??? Imaging tests, such as an ultrasound. You may be referred to a health care provider who specializes in women's health (mushroom packer). How is this treated? Treatment for this condition depends on the cause of the condition and your symptoms. Treatment may include: ??? Lubricants, ointments, and creams. ??? Physical therapy. ??? Massage therapy. ??? Hormonal therapy. ??? Medicines to: ? Prevent or fight infection. ? Relieve pain. ? Help numb the area. ? Treat de (more content not included)... Normal [facility] Urology Office/Clinic Noteon 10-07-2024 Urology Office/Clinic Note Urology Office/Clinic Note Chief Complaint pt here for cysto/pelvic exam HPI Staff Pt here for cysto/pelvic exam pt denies any pain/burning denies visible blood denies flank pain pt reports that she did take pre-procedure ABX as directed consent signed History of Present Illness Tests reviewed: none I have reviewed the previous health record information and history for this patient from Dr. Richard. I have reviewed and verified the staff [...] See HPI. Physical Exam Vitals & Measurements HR: 66(Peripheral) BP: 128/68 HT: 163 cm HT: 64 in WT: 100 kg WT: 220.462 lb BMI: 37.64 General Appearance: alert , no acute distress, well nourished, well developed female. Procedure Operative Information Anesthesia Type: Local Procedure: Local Cystoscopy Complications: None Surgical risks, benefits, details of the procedure have been explained to the patient. Full informed consent has been obtained. Intraoperative Information Prepped: Patient is brought back to the endoscopy suite. Patient is placed in modified dorso/lithotomy position. Patient prepped in the usual fashion with Betadine solution. 2% Xylocaine Jelly is placed per Urethra. After waiting several minutes, the Cystoscope is introduced. The Urethra is: Normal, no evidence of lesion or communicating tract to urethra. no purulence expressed. no evidence of cystic structure adjacent to urethra. The Bladder: No tumors or stones. Trabeculated: None (0) The Ureteral orifices: Show efflux of clear urine Specimens Removed: None Removal: Cystoscope is removed. The patient tolerated it well. Postoperative Information Patient is discharged home with antibiotic coverage. Follow up arranged. Assessment/Plan Pt is 22 wks gestation. 1. Dyspareunia, female (N94.10: Unspecified dyspareunia) Shares she was suspicious of a Bartholin cyst so she called Dr. Hidalgo. States he did not notice this upon examination. First noticed cyst on right side after having pain with intercourse. Feels cyst has remained stable in size, about the size of a marble. Denies abnormal discharge. No hx of UTIs. Feels urination is wnl. Pt had IO cysto without complications today. Prophy abx taken prior. No abnormalities found. -Pt to call if cyst recurs. -Will consider pelvic MRI Follow-up With When Contact Information TINO MACK, Darin Cummins, URL Only if needed [facility] [address], [place] [address] [phone] Additional Instructions: Patient Education Dyspareunia, Female I, Chichi Bautista, personally scribed for Dr. Richard on 10/07/2024 08:53:24. . Documentation recorded by the scribe, Chichi Bautista, accurately reflects the services(s) I performed and decisions made by me. Authenticated by Dr. Richard on 10/07/2024 08:55:28. Problem List/Past Medical History Ongoing Dyspareunia, female Velamentous insertion of umbilical cord in second trimester Historical No qualifying data Procedure/Surgical History Extraction of wisdom tooth (03/20/2018), Mouth care, Myringotomy and insertion of T tube, Tympanostomy. Medications ferrous sulfate (as elemental iron) 45 mg oral tablet, extended release, 27 mg, Oral, Daily Keflex 500 mg Cap, 500 mg= 1 cap(s), Oral, Daily Multivitamins, 1 tab(s), Oral, Daily Allergies No Known Allergies Social History Alcohol Never., 07/31/2024 Substance Abuse Never., 07/31/2024 Tobacco Never (less than 100 in lifetime) Tobacco Use:. Never Smokeless Tobacco Use:., 10/07/2024 Family History Cancer - unknown origin: Grandparent. Diabetes mellitus type 2: Grandparent. Heart failure: Grandparent. Hypertension: Grandparent. Seizure: Sister. Immunizations Vaccine Date Status SARSCoV2 mRNA(dragan javier) vac 06/03/2021 Recorded SARS-CoV-2 (COVID-19) mRNA BNT-162b2 vax 05/13/2021 Recorded influenza virus vaccine, inactivated 02/01/2021 Recorded hepatitis B pediatric vaccine 10/29/2019 Recorded hepatitis B adult vaccine 05/14/2019 Recorded measles/mumps/rubella /varicella vaccine 04/11/2019 Recorded hepatitis B pediatric vaccine 04/11/2019 Recorded meningococcal conjugate vaccine 11/09/2017 Recorded poliovirus vaccine, inactivated 12/08/2004 Recorded measles/mumps/rubella virus vaccine 12/08/2004 Recorded diphtheria/pertussis, acel/tetanus ped (more content not included)... Normal [facility] Comment on above: Result Comment: Elec tronically Signed By: Darin RICHARD MD\.br\Date and Time Signed: 10/07/24 08:55 EDT\.br\Electronically Co-Signed By: Chichi Bautista\.br\Date and Time Co-Signed: 10/07/24 08:53 EDT GLUCOSE 1 HOURon 09-18-2024 Glucose [Mass/Vol] 104 mg/dL NINF - 13 0 mg/dL [facility] Urinalysis macro (dipstick) panel (U)on 09-17-2024 Bilirubin, UA Negative Negative - 4(70) +++ mg/dL [facility] Blood, UA Negative Negative - 50 Eulogio/mcL [facility] Clarity, UA Clear [facility] re Color, UA Yellow [facility] Glucose, UA Negative Negative - 1999(110) ++++ mg/dL [facility] Interpretation and review of laboratory results Abnormal [facility] Ketones, UA Positive Negative - 160(16) ++++ mg/dL [facility] Comment on above: 40mg/dL Leukocytes, UA Negative Negative - 500+++ Rufina/mcL [facility] Nitrite, UA Negative Negative - Positive [facility] pH, UA 6 5 - 9 [facility] Protein, UA Negative Negative - 1999(20) ++++ mg/dL [facility] Spec Grav, UA 1.015 1 - 1.03 [facility] Urobilinogen, UA 0.2 0.2 - 12 mg/dL [facility] Urinalysis macro (dipstick) panel (U)on 08-20-2024 Bilirubin, UA Positive Negative - 4(70) +++ mg/dL [facility] Comment on above: small Blood, UA Negative Negative - 50 Eulogio/mcL [facility] Clarity, UA Clear [facility] re Color, UA Yellow [facility] Glucose, UA Negative Negative - 1999(110) ++++ mg/dL [facility] Interpretation and review of laboratory results Abnormal [facility] Ketones, UA Positive Negative - 160(16) ++++ mg/dL [facility] Comment on above: 15mg/dL Leukocytes, UA Positive Negative - 500+++ Rufina/mcL [facility] Comment on above: small Nitrite, UA Negative Negative - Positive [facility] pH, UA 7.5 5 - 9 [facility] Protein, UA Positive Negative - 1999(20) ++++ mg/dL [facility] Comment on above: 100mg/dL Spec Grav, UA 1.015 1 - 1.03 [facility] Urobilinogen, UA 1.0 0.2 - 12 mg/dL [facility] Amb[facility] Visit Summaryon 0 08-05-2024 Ambulatory Visit Summary Ambulatory Visit Summary HESHAM AVALOS :2000 Visit Date:08/05/2024 Ambulatory Visit Instructions Your Diagnosis Urethral cyst Your Care Team Attending Physician - Darin RICHARD MD Primary Care Physician - JIM MENDEZ MD Referring Physician - Rebeca HIDALGO DO This [...] Following Appointments Follow Up with TINO MACK, SHERIN Mak When: Comments: schedule cystoscopy Where: [facility] [address], [place] [address] [phone] Medications What How Much When Instructions Unchanged [...] including vitamins, herbs, eye drops, creams, and iekg-jeb-adzcbxy medicines. ??? Any problems you or family [...] tells you to take them. ??? Taking frny-rtf-gwjbwkz medicines, vitamins, herbs, and supplements. Tests You [...] (local ane (more content not included)... Normal [facility] Urology Office/Clinic Noteon 08-05-2024 Urology Office/Clinic [...] See #1. Follow-up With When Contact Information Darin RICHARD MD, URL [facility] [address] [place] [address]- [phone] Additional Instructions: schedule cystoscopy Patient Education Cystoscopy I, Chichi Bautista, personally scribed for Dr. Richard on 08/05/2024 [...] Heart failure: Grandparent. Hypertension: Grandparent. Seizure: Sister. Normal [facility] Comment on above: Result Comment: Elec tronically [...] Healthcare LIU ALBICANS, PARAPSILOSIS, TROPICALIS Not detected [facility] GLAB[facility]ATA Not detected [facility] LIU KRUSEI 0 [facility] Healt hcare LIU KRUSEI Not [facility] CHLAMYDIA TRACHOMATIS 0 [facility] CHLAMYDIA TRACHOMATIS Not detected [facility] GARDNERELLA VAGINALIS 0 [facility] GARDNERELLA VAGINALIS Not detected [facility] MEGASPHAERA (TYPES 1, 2) 0 [facility] MEGASPHAERA (TYPES 1, 2) Not detected [facility] MYCOPLASMA GENITALIUM 0 [facility] MYCOPLASMA GENITALIUM Not detected [facility] NEISSERIA GONORRHOEAE 0 [facility] NEISSERIA GONORRHOEAE Not detected [facility] TRICHOMONAS VAGINALIS 0 [facility] TRICHOMONAS VAGINALIS Not detected [facility] Urinalysis macro (dipstick) panel (U)on 07-23-2024 Bilirubin, UA Negative Negative - 4(70) +++ mg/dL [facility] Blood, UA Negative Negative - 50 Eulogio/mcL [facility] Clarity, UA Clear [facility] re Color, UA Yellow [facility] Glucose, UA Negative Negative - 1999(110) ++++ mg/dL [facility] Interpretation and review of laboratory results Abnormal [facility] Ketones, UA Positive Negative - 160(16) ++++ mg/dL [facility] Comment on above: trace Leukocytes, UA Negative Negative - 500+++ Rufina/mcL [facility] Nitrite, UA Negative Negative - Positive [facility] pH, UA 6.5 5 - 9 [facility] Protein, UA Trace Negative - 1999(20) ++++ mg/dL [facility] Spec Grav, UA 1.03 1 - 1.03 [facility] Urobilinogen, UA 0.2 0.2 - 12 mg/dL [facility] Free Cell DNAOrdered B y: Pao Fu on 07-16-2024 [facility] BOX TESTon 07-08-2024 BOX TEST SENT OUT [facility] BOX1 [facility] BOX2 07/08/24 [facility] Drug Screen, Urineon 025 Amphetamine/Methamph etamine Negative [facility] Barbiturates Negative [facility] Benzodiazepines Negative [facility] Cocaine Metabolite Negative [facility] Methadone Negative [facility] Opiates Negative [facility] Oxycodone Negative [facility] Phencyclidine Negative [facility] Thc Marijuana, Urine Negative [facility] HIV 1&2 AB/AG Screen (P24 AG )on 07-08-2024 HIV 1&2 AB/AG Non-Reactive [facility] Hepatitis B surface antigeno n 07-08-2024 Hepatitis B Surface Antigen Negative [facility] Hepatitis C(HCV) Ab w/ Refle x to PCRon 07-08-2024 HCV Ab Ql (S) Non-Reactive [facility] No Panel Informationon 07-08 [facility] Rubella IGG immune statuson 07-08-2024 Rubella immune IgG IMMUNE [facility] Syphilis Total(Unknown Syphi lis Status)on 07-08-2024 Syphilis Non-Reactive [facility] System Type and screenon 07-08-2024 Abo/Rh(D) Positive [facility] US OB TRANSVAGINALon 025 US OB [...] II, MD, PHD at 05-Jul-2024 08:37:00 PM [facility] Normal Not Available Comment on above: Order Comment: US OB TRANSVAGINAL No LMP recorded. Cytology Cervical or vaginal smear or scraping studyon 11-21-2023 [facility] PAP ACOG PANEL 2: 21 to 29on 03-04-2022 . . Normal [facility] Comment on above: Performed By: #### [id number] #### [facility] [address] [place] [address] Dr. Anthony Newton Age Gdln ACOG Testing - [facility] Comment on above: Performed By: #### [id number] #### [facility] [address] [place] [address] Dr. Anthony Newton DIAGNOSIS: Comment [facility] Comment on above: Result Comment: NEGA TIVE FOR INTRAEPITHELIAL LESION OR MALIGNANCY. THIS SPECIMEN WAS RESCREENED PART OF OUR STEMMING MACHINE OPERATOR PROGRAM. Performed By: #### [id number] #### [facility] [address] [place] [address] Dr. Anthony Newton Methodology: Comment Normal [facility] Comment on above: Result Comment: This liquid based ThinPrep(R) pap test was screened with the use of an image guided system. Performed By: #### [id number] #### [facility] [address] [place] [address] Dr. Anthony Newton Note: Comment [facility] Comment on above: Result Comment: The Pap smear is a screening test designed to aid in the detection of premalignant and malignant conditions of the uterine cervix. It is not a diagnostic procedure and should not be used as the sole means of detecting cervical cancer. Both false-positive and false-negative reports do occur. . Performed By: #### [id number] #### [facility] [address] [place] [address] Dr. Anthony Newton Performed by: Comment Normal [facility] Comment on above: Result Comment: Lana Connell Tallow Pumper Performed By: #### [id number] #### [facility] [address] [address] [address] Anthony Newton QC reviewed by: Comment Normal [facility] Comment on above: Result Comment: Shae Maria, Tallow Pumper (ASCP) Performed By: #### [id number] #### [facility] [address] [address] [address] Anthony Newton Reflex Criteria: Comment Normal [facility] Comment on above: Result Comment: The HPV DNA reflex criteria were not met with this specimen result therefore, no HPV testing was performed. . Performed By: #### 4 [id number] #### [facility] [address] [address] [address] Anthony Newton Specimen adequacy: Comment Normal [facility] Comment on above: Result Comment: Sati sfactory for evaluation. Endocervical and/or squamous metaplastic cells (endocervical component) are present. Performed By: #### 4 [id number] #### [facility] [address] [address] [address] Anthony Newton Lab - Toxicology Resultson 0 10-05-2018 Lab - Toxicology Results [id number]. 00OTGTIFF [facility] Outside Recordson 10-04-2018 Outside Records [id number]. 00OTGTIFF [facility] Triage Industrialon 10-05-19 19 Drug Screen Complete Collected Normal [facility] Comment on above: Performed By: #### 1 [id number] #### [facility] (DEFAULT) [address] [place] [address] ED Clinical Summaryon 2018 ED Clinical Summary [facility] ? Urgent Care [address] [place] [id number] Clinical Summary PERSON INFORMATION Name: HESHAM NEELY Age: 18 Years Sex: FEMALE : 00 MRN: Acct#: Visit Reason: Medical screening exam; PHYSICAL PRE EMPLOYMENT/ RIVERVIEW Arrival: 10/03/18 16:20:33 Discharge: 10/03/18 16:50:00 LOS: 000 00:30 Check In: 10/03/18 16:20:33 Checkout: 10/03/18 16:50:00 Address: [address] [place] [address] PCP: PROVIDER INFORMATION Provider Role Assigned Unassigned [...] Instructions: Follow-Up: DIAGNOSIS: Patient Understands: Comment: Normal [facility] ED Patient Summaryon 019 ED Patient Summary [facility] ? Urgent Care [address] [place], [place] [id number] PATIENT DISCHARGE INSTRUCTIONS Patient Information Name: HESHAM NEELY Age: 18 Years Date of : 00 Reason For Visit: Medical screening exam; PHYSICAL PRE EMPLOYMENT/ RIVERVIEW Arrival Time: 10/03/18 16:20:33 Primary Care Physician: Attending Physician: Paulino Padilla Comment: Patient Education Medication Information: The exam and treatment you received today in the [facility] Emergency Department were for an urgent problem and are not intended as complete care. It is important for you to follow up with a doctor, nurse practitioner, or physician?s geological survey field assistant for ongoing care. If your symptoms [...] so we can reach you if necessary. [facility] Emergency Department has provided you with a complete list of medications post discharge. Please inform your apparel fashion designer/provider of your visit and for further instruction on these medications. Any specific questions regarding your chronic medications and dosages should be discussed with your primary care physician(s) and/or pharmacist. Visit Information Visit Diagnosis: Diagnoses This Visit Medical screening exam ([id number]) If you received any narcotics, sedation, or [...] sign any legal documents Reason for Visit: [place] physical Allergies: Substance Reaction Symptoms Type Comments [...] for Disease Control and Prevention December 2013 [facility] Vital Signs Date Time Vital Sign Value Performing Clinician Sole rodriguez 11-14-2024 11:22-0400 Body mass index (BMI) [Ratio] 38.88 kg/m2 Kathie COCHRAN Work Phone: [facility] 11-14-2024 11:22-0400 Body weight 102.74 kg Kathie COCHRAN Work Phone: [facility] 11-14-2024 11:22-0400 Diastolic blood pressure 64 mm[Hg] Kathie COCHRAN Work Phone: [facility] 11-14-2024 11:22-0400 Systolic blood pressure 122 mm[Hg] Kathie COCHRAN Work Phone: [facility] 10-17-2024 08:10-0400 Body mass index (BMI) [Ratio] 38.66 kg/m2 Rebeca Rocky DO Work Phone: [facility] 10-17-2024 08:10-0400 Body weight 102.17 kg Rebeca Rocky DO Work Phone: [facility] 10-17-2024 08:10-0400 Diastolic blood pressure 58 mm[Hg] Rebeca Rocky DO Work Phone: [facility] 10-17-2024 08:10-0400 Systolic blood pressure 114 mm[Hg] Rebeca Rocky DO Work Phone: [facility] 09-23-2024 11:59-0400 Body height 162.6 cm Cintia Allen MD Work Phone: [facility] 09-23-2024 11:59-0400 Body mass index (BMI) [Ratio] 38.04 kg/m2 Cintia Allen MD Work Phone: [facility] 09-23-2024 11:59-0400 Body weight 100.52 kg Cintia Allen MD Work Phone: [facility] 09-23-2024 11:59-0400 Diastolic blood pressure 75 mm[Hg] Cintia Allen MD Work Phone: [facility] 09-23-2024 11:59-0400 Heart rate 90 /min Cintia Allen MD Work Phone: [facility] 09-23-2024 11:59-0400 Systolic blood pressure 119 mm[Hg] Cintia Allen MD Work Phone: [facility] 09-17-2024 13:49-0400 Body mass index (BMI) [Ratio] 38.28 kg/m2 Kathie COCHRAN Work Phone: [facility] 09-17-2024 13:49-0400 Body weight 101.15 kg Kathie COCHRAN Work Phone: [facility] 09-17-2024 13:49-0400 Diastolic blood pressure 78 mm[Hg] Kathie COCHRAN Work Phone: [facility] 09-17-2024 13:49-0400 Systolic blood pressure 124 mm[Hg] Kathie COCHRAN Work Phone: [facility] 08-20-2024 10:54-0400 Body mass index (BMI) [Ratio] 37.59 kg/m2 Rebeca Rocky DO Work Phone: [facility] 08-20-2024 10:54-0400 Body weight 99.34 kg Rebeca Rocky DO Work Phone: [facility] 08-20-2024 10:54-0400 Diastolic blood pressure 84 mm[Hg] Rebeca Rocky DO Work Phone: [facility] 08-20-2024 10:54-0400 Systolic blood pressure 126 mm[Hg] Rebeca Rocky DO Work Phone: [facility] 07-23-2024 12:54-0400 Body mass index (BMI) [Ratio] 38.28 kg/m2 Rebeca Rocky DO Work Phone: [facility] 07-23-2024 12:54-0400 Body weight 101.15 kg Rebeca Rocky DO Work Phone: [facility] 07-23-2024 12:54-0400 Diastolic blood pressure 80 mm[Hg] Rebeca Rocky DO Work Phone: [facility] 07-23-2024 12:54-0400 Systolic blood pressure 120 mm[Hg] Rebeca Rocky DO Work Phone: [facility] 05-24-2023 14:05-0500 Body height 162.6 cm Stephanie Blancopatrick SAMPLE PREPARATION SUPERVISOR Work Phone: [facility] 05-24-2023 14:05-0500 Body mass index (BMI) [Ratio] 34.57 kg/m2 Stephanie Sotelo SAMPLE PREPARATION SUPERVISOR Work Phone: [facility] 05-24-2023 14:05-0500 Body weight 91.35 kg Stephanie Blancopatrick SAMPLE PREPARATION SUPERVISOR Work Phone: [facility] 05-24-2023 14:05-0500 Diastolic blood pressure 74 mm[Hg] Stephanie Sotelo SAMPLE PREPARATION SUPERVISOR Work Phone: [facility] 05-24-2023 14:05-0500 Heart rate 63 /min Stephanie Sotelo SAMPLE PREPARATION SUPERVISOR Work Phone: [facility] 05-24-2023 14:05-0500 Respiratory rate 20 /min Stephanie Blancopatrick SAMPLE PREPARATION SUPERVISOR Work Phone: [facility] 05-24-2023 14:05-0500 SaO2% (BldA) [Mass fraction] 96 % Stephanie Whartonzpatrick SAMPLE PREPARATION SUPERVISOR Work Phone: [facility] 05-24-2023 14:05-0500 Systolic blood pressure 138 mm[Hg] Stephanie Sotelo SAMPLE PREPARATION SUPERVISOR Work Phone: [facility] 04-12-2023 15:05-0500 Body height 162.6 cm Daniella Reina MD Work Phone: [facility] 04-12-2023 15:05-0500 Body mass index (BMI) [Ratio] 37.93 kg/m2 Daniella Reina MD [facility] 04-12-2023 15:05-0500 Body weight 100.25 kg Daniella [facility]ina MD [facility] 04-12-2023 15:05-0500 Diastolic blood pressure 76 mm[Hg] Daniella Reina MD [facility] 04-12-2023 15:05-0500 Heart rate 96 /min Daniella Reina MD [facility] 04-12-2023 15:05-0500 Systolic blood pressure 115 mm[Hg] Daniella Reina MD [facility] Encounters Encounter Date Encounter Type Care Provider Facility Start: 11-14-2024 End: 11-14-2024 Bamboo flowsheet Kathie COCHRAN Work Phone: [facility] Start: 11-14-2024 End: 11-14-2024 Bamboo flowsheet Kathie COCHRAN Work Phone: [facility] Start: 11-14-2024 End: 11-14-2024 flow sheet Kathie COCHRAN Work Phone: [facility] Comment on above: Second trimester pre gnancy ([facility]); 27 weeks gestation of ([facility]) Start: 10-24-2024 End: 10-24-2024 ambulatory REBECA R [facility] Start: 10-17-2024 End: 10-17-2024 Bamboo flowsheet Rebeca Rocky DO Work Phone: [facility] Start: 10-17-2024 End: 10-17-2024 Bamboo flowsheet Rebeca Rocky DO Work Phone: [facility] Start: 10-17-2024 End: 10-17-2024 flow sheet Rebeca Rocky DO Work Phone: [facility] Comment on above: Second trimester pre gnancy ([facility]); 23 weeks gestation of ([facility]); Diabetes mellitus screening Start: 10-17-2024 End: 10-17-2024 ambulatory REBECA HYLTONO Not Available Start: 10-07-2024 End: 10-07-2024 ambulatory Darin RICHARD Facility:[facility] Start: 10-07-2024 End: 10-07-2024 Patient encounter procedure Darin RICHARD [facility] Start: 09-23-2024 End: 09-23-2024 Office consultation new/estab patient 40 min Cintia Allen MD Work Phone: [facility] Comment on above: Obesity affecting pr egnancy in second trimester, unspecified obesity type (Primary Dx) Start: 09-23-2024 End: 09-23-2024 Orders Only Sherrill Hernandez [facility] Comment on above: Polyhydramnios affec ting (Primary Dx); Low-lying placenta; Placenta previa in second trimester; Velamentous insertion of umbilical cord in second trimester; Vasa previa, single or unspecified fetus; History of hemorrhage, currently in second trimester Start: 09-18-2024 End: 09-18-2024 Clinisync Result Encounter Rebeca Rocky DO Work Phone: [facility] Unsolicited Start: 09-18-2024 End: 09-18-2024 Clinisync Result Encounter Rebeca Rocky DO Work Phone: [facility]solic[facility] Start: 09-17-2024 End: 09-17-2024 Bamboo flowsheet Kathie COCHRAN Work Phone: [facility] Start: 09-17-2024 End: 09-17-2024 Bamboo flowsheet Kathie COCHRAN Work Phone: [facility] Start: 09-17-2024 End: 09-17-2024 ambulatory KATHIE ROMAN Not Available Start: 09-17-2024 End: 09-17-2024 flow sheet Kathie COCHRAN Work Phone: [facility] Comment on above: Second trimester pre gnancy; 19 weeks gestation of ; Screening, , for anatomic survey Start: 08-20-2024 End: 08-20-2024 Bamboo flowsheet Rebeca [...] Start: 08-05-2024 End: 08-05-2024 ambulatory Darin RICHARD Facility:[facility] Start: 08-02-2024 End: 08-02-2024 Chart abstracting Cintia Allen MD Work Phone: [facility] Start: 07-25-2024 ambulatory Facility:[facility] Start: 07-23-2024 End: 07-24-2024 External Result Encounter [...] 07-08-2024 End: 07-08-2024 Clinisync Result Encounter Rebeca Hidalgo DO Work Phone: [facility] Unsolicited Start: 07-08-2024 End: 07-08-2024 Clinisync Result Encounter Rebecalupe Hyltono DO Work Phone: [facility] Unsolicited Start: 07-05-2024 End: 07-05-2024 ambulatory REBECA ROCKY Not Available Start: 11-21-2023 End: 11-21-2023 ambulatory REBECA ROCKY Not Available Start: 05-24-2023 Bamboo flowsheet Stephanie damonpatrick SAMPLE PREPARATION SUPERVISOR Work Phone: [facility] Start: 05-24-2023 Bamboo flowsheet Stephanie damonpatrick SAMPLE PREPARATION SUPERVISOR Work Phone: [facility] Start: 05-24-2023 End: 05-24-2023 Patient encounter status Stephanie Sotelo SAMPLE PREPARATION SUPERVISOR Work Phone: [facility] Work Phone: Start: 05-24-2023 End: 05-24-2023 Periodic preventive med est patient 18-39 yrs Stephanie Sotelo SAMPLE PREPARATION SUPERVISOR Work Phone: [facility] Comment on above: Encounter for wellne ss examination (Primary Dx); Anemia, unspecified type Start: 04-12-2023 End: 04-12-2023 Office outpatient visit 25 minutes Daniella Reina MD Work Phone: [facility] [place] Comment on above: 35 weeks gestation o f (Primary Dx); Polyhydramnios affecting Start: 02-24-2022 End: 02-24-[address] REBECA HIDALGO Facility:[facility] Procedures Date Procedure Procedure Detail Performing Clinician Start: 11-14-2024 Urnls dip stick/tabl et rgnt non-auto w/o micrscp Kathie COCHRAN Work Phone: Start: 10-17-2024 Urnls dip stick/tabl et rgnt non-auto w/o micrscp Rebeca Hidalgo DO Work Phone: Start: 09-18-2024 GLUCOSE 1 HOUR Rebeca Fa zio DO Work Phone: Start: 09-17-2024 Urnls dip stick/tabl et rgnt non-auto w/o micrscp Kathie COCHRAN Work Phone: Start: 08-20-2024 Urnls dip stick/tabl et rgnt [...] Ref Prov Start: 07-08-2024 BOX TEST Rebeca Fazi o DO Work Phone: Start: 11-21-2023 Cytp cerv/vag auto t hin layer prep mnl screen Rebeca Rocky DO Work Phone: Start: 11-09-2022 Microscopic observat ion [Identifier] in Cervix by Cyto stain Daniella Reina MD Work Phone: Start: 01-31-2021 Adult depression scr eening assessment Daniella Reina MD Work Phone: Start: 03-20-2018 Extraction of wisdom tooth Darin RICHARD Mouth care Darin RICHARD Myringotomy and inse rtion of T tube Darin RICHARD Tympanostomy Darin RICHARD Plan of Treatment Date Care Activity Detail Author Start: 12-19-2030 DTaP,Tdap and Td Vaccines (6 - Tdap) DTaP,Tdap and Td Vaccines (6 - Tdap) [facility] Start: 11-09-2025 Screening for malign ant neoplasm of cervix [facility] Start: 09-23-2025 Adult BMI Screening [facility] Screen [facility] Start: 09-23-2025 Tobacco Screening [facility]ening [facility] Start: 09-23-2025 End: 09-23-2025 US MFM with or without consult US MFM with or without consult Imaging Routine Polyhydramnios affecting Low-lying placenta Placenta previa in second trimester Velamentous insertion of umbilical cord in second trimester Vasa previa, single or unspecified fetus History of hemorrhage, currently in second trimester Expected: 09/23/2025 (Approximate), Expires: 09/23/2025 [employer] Work Phone: Comment on above: Expected: 09/23/2025 (Approximate), Expires: 09/23/2025 Start: 12-16-[address] [facility] Start: 11-28-2024 End: 11-28-2024 Patient encounter procedure 11/28/2024 8:30 AM EDT Routine [facility] [address] [place] [address] Rebeca Hidalgo DO [address] [place] [address] [facility] Start: 11-26-2024 End: 11-26-2024 Patient encounter procedure 11/26/2024 3:00 PM EDT Office Visit [facility] [address] [place] [address] Rebeca Hidalgo, DO [address] [place] [address] [facility] Start: 11-14-2024 End: 11-14-2024 Patient encounter procedure [facility] Comment on above: Arrived Start: 10-24-2024 End: 10-24-2024 Patient encounter procedure 10/24/2024 1:00 PM EDT Appointment [facility] [address] [place] [id number] [facility] [place] Start: 10-17-2024 End: 10-17-2025 CBC panel - Blood by Automated count CBC Lab Routine Diabetes mellitus screening Expected: 10/17/2024 (Approximate), Expires: 10/17/2025 [facility] Work Phone: Comment on above: Expected: 10/17/2024 (Approximate), Expires: 10/17/2025 Start: 10-17-2024 End: 10-17-2025 Measurement of glucose 1 hour after glucose challenge for glucose tolerance test Glucose tolerance, 1 hour Lab Routine Diabetes mellitus screening Expected: 10/17/2024 (Approximate), Expires: 10/17/2025 [facility] Comment on above: Expected: 10/17/2024 (Approximate), Expires: 10/17/2025 Start: 10-17-2024 End: 10-17-2024 Patient encounter procedure 10/17/2024 10:10 AM EDT Routine [facility] [address] [place] [phone] Rebeca Hidalgo, DO [address] [place] [address] [facility] Start: 10-17-2024 End: 10-17-2024 Patient encounter procedure 10/17/2024 8:10 AM EDT Routine [facility] [address] [place] [id number] Rebeca Hidalgo, DO [address] [place] [address] Arrived [facility] Comment on above: Arrived Start: 09-23-2024 End: 09-23-2024 Patient encounter procedure [facility] Start: 09-17-2024 End: 09-17-2024 Patient encounter procedure 09/17/2024 1:30 PM EDT Routine [facility] [address] [place] [phone] Kathie Roman PA [address] [place] [address] [facility] Start: 08-20-2024 End: 10-20-2024 Alpha fetoprotein, maternal Alpha fetoprotein, maternal Lab Routine Second trimester 15 weeks gestation of Expected: 08/20/2024 (Approximate), Expires: 10/20/2024 [facility] Work Phone: Comment on above: Expected: 08/20/2024 (Approximate), Expires: 10/20/2024 Start: 08-20-2024 End: 08-20-2025 Measurement of glucose 1 hour after glucose challenge for glucose tolerance test Glucose tolerance, 1 hour Lab Routine Diabetes mellitus screening Expected: 08/20/2024 (Approximate), Expires: 08/20/2025 [facility] Comment on above: Expected: 08/20/2024 (Approximate), Expires: 08/20/2025 Start: 08-20-2024 End: 08-20-2024 Patient encounter procedure 08/20/2024 10:20 AM EDT Routine [facility] [address] [place] [phone] Rebeca Hidalgo DO [address] [place] [address] [facility] Start: 08-05-2024 End: 08-05-2024 Patient encounter procedure 08/05/2024 2:10 PM EDT Routine [facility] [address] [place] [phone] Rebeca Hidalgo DO [address] [facility] [place] [address] [facility] Start: 04-12-2024 Adult BMI Screening Adult BMI Screen ing [facility] Start: 04-12-2024 Tobacco Screening Tobacco Screening [facility] Start: 12-17-2023 COVID-19 Vaccine ( season) COVID-19 Vaccine ( season) [facility] Start: 12-17-2023 Influenza vaccination Influenza Vacc ine (#1) [facility] Start: 11-10-2023 Screening for Chlamy annabella trachomatis Chlamydia Screening [facility] Start: 10-15-2023 Influenza vaccination Influenza Vacc ine (#1) [facility] Comment on above: Postponed from 12/16 (Patient Refused) Start: 06-07-2023 End: 06-07-2023 ambulatory 06/07/2023 10:30 AM EST Visit [facility] [address] [place] [phone] Kathie Roman PA [address] [facility] [address] [place], [place] [id number] [facility] Start: 05-24-2023 End: 05-24-2024 CBC W Auto Differential panel - Blood CBC and differential Lab Routine Encounter for wellness examination Anemia, unspecified type Expected: 05/24/2023 (Approximate), Expires: 05/24/2024 [facility] Comment on above: Expected: 05/24/2023 (Approximate), Expires: 05/24/2024 Start: 05-24-2023 End: 05-24-2024 Comprehensive metabolic 2000 panel - Serum or Plasma Comprehensive metabolic panel Lab Routine Encounter for wellness examination Anemia, unspecified type Expected: 05/24/2023 (Approximate), Expires: 05/24/2024 [facility] Work Phone: Comment on above: Expected: 05/24/2023 (Approximate), Expires: 05/24/2024 Start: 12-16-2022 COVID-19 Vaccine ( season) COVID-19 Vaccine ( season) [facility] Start: 12-16-2022 Influenza vaccination N [facility] Start: 01-31-2022 Depression Screening Depression Scre [facility] Start: 2018 Adult BMI Follow Up Plan Adult BMI Follow Up [facility] Start: 2012 Depression Screening Depression Scre [facility] CHLAMYDIA TRACHOMATI S (GENITO/STI) CHLAMYDIA TRACHOMATIS (GENITO/STI) Lab Routine Vaginal discharge Ordered: 07/23/2024 [facility] Comment on above: Ordered: 07/23/2024 Neisseria gonorrhoea e DNA [Presence] in Unspecified specimen by BOONE with probe detection Neisseria gonorrhea DNA probe, direct Lab Routine Vaginal discharge Ordered: 07/23/2024 [facility] Comment on above: Ordered: 07/23/2024 SURESWAB(R) ADVANCED VAGINITIS PLUS, TMA SURESWAB(R) ADVANCED VAGINITIS PLUS, TMA Pathology and Cytology Routine Vaginal discharge Ordered: 07/23/2024 [facility] Work Phone: Comment on above: Ordered: 07/23/2024 Immunizations Immunization Date Immunization Notes Care Provider Bronwyn alexander 06-03-2021 SARS-CoV-2 mRNA (qiuzdppnkfu-gtto-ilooh se) vaccine Darin RICHARD [facility] 05-13-2021 SARS-CoV-2 (COVID-19 ) mRNA BNT-162b2 vax Darin RICHARD [facility] 02-01-2021 Seasonal, quadrivale nt, recombinant, injectable influenza vaccine, preservative free Stephanie Sotelo NP Work Phone: [facility] 02-01-2021 influenza virus vaccine, unspecified formulation Daniella Reina MD Work Phone: [facility] 12-19-2020 diphtheria, tetanus toxoids and pertussis vaccine Daniella Reina MD Work Phone: [facility] 10-29-2019 hepatitis B vaccine, pediatric or pediatric/adolescent dosage Daniella Reina MD Work Phone: [facility] 05-14-2019 hepatitis B vaccine, adult dosage Daniella Reina MD Work Phone: [facility] 04-11-2019 hepatitis B vaccine, pediatric or pediatric/adolescent dosage Daniella Reina MD Work Phone: [facility] 04-11-2019 measles, mumps, rubella, and varicella virus vaccine Daniella Reina MD Work Phone: [facility] 11-09-2017 meningococcal ACWY vaccine, unspecified formulation Darin RICHARD [facility] 11-09-2017 meningococcal oligosaccharide (groups A, C, Y and W-135) diphtheria toxoid conjugate vaccine (MCV4O) Daniella Reina MD Work Phone: [facility] 12-08-2004 diphtheria, tetanus toxoids and acellular pertussis vaccine Daniella Reina MD Work Phone: [facility] 12-08-2004 measles, mumps and rubella virus vaccine Daniella Reina MD Work Phone: [facility] 12-08-2004 poliovirus vaccine, inactivated Daniella Reina MD Work Phone: [facility] 12-08-2004 poliovirus vaccine, unspecified formulation Darin RICHARD [facility] 09-28-2001 measles, mumps and rubella virus vaccine Daniella Reina MD Work Phone: [facility] 03-23-2001 diphtheria, tetanus toxoids and acellular pertussis vaccine, unspecified formulation Daniella Reina MD Work Phone: [facility] 03-23-2001 DTaP, unspecified formulation Darin RICHARD [facility] 03-23-2001 haemophilus influenz ae type b conjugate and Hepatitis B vaccine Daniella Reina MD Work Phone: [facility] 03-23-2001 poliovirus vaccine, inactivated Daniella Reina MD Work Phone: [facility] 03-23-2001 poliovirus vaccine, unspecified formulation Darin RICHARD [facility] 01-12-2001 diphtheria, tetanus toxoids and acellular pertussis vaccine, unspecified formulation Daniella Reina MD Work Phone: [facility] 01-12-2001 DTaP, unspecified formulation Darin RICHARD [facility] 01-12-2001 haemophilus influenz ae type b vaccine, HbOC conjugate Daniella Reina MD Work Phone: [facility] 01-12-2001 poliovirus vaccine, inactivated Daniella Reina MD Work Phone: [facility] 01-12-2001 poliovirus vaccine, unspecified formulation Darin RICHARD [facility] 2000 diphtheria, tetanus toxoids and acellular pertussis vaccine, unspecified formulation Daniella Reina MD Work Phone: [facility] 2000 DTaP, unspecified formulation Darin RICHARD [facility] 2000 haemophilus influenz ae type b conjugate and Hepatitis B vaccine Daniella Reina MD Work Phone: [facility] 2000 poliovirus vaccine, inactivated Daniella Reina MD Work Phone: [facility] 2000 poliovirus vaccine, unspecified formulation Darin RICHARD [facility] 2000 hepatitis B vaccine, pediatric or pediatric/adolescent dosage Daniella Reina MD Work Phone: [employer] NEGATED: Highlighted row has not occurred!04-11-2019 influenza, injectable, quadrivalent, preservative free Daniella Reina MD Work Phone: [employer] Comment on above: Deferred: Patient de cision Payers Date Payer Category Payer Private Health Insurance [id number] 2022 [facility] Memb er Subscriber Plan / Payer (Effective 2022-Present) Name: Hesham Avalos Relation to Subscriber: Spouse Name: Shailesh Avalos Date of : 2000 Address: [address] [place] [address] Payer ID: Not on file Type: Not on file Address: [address] [place] [id number] 2022 [facility] - O ANTHEM [id number] 2022 Unknown [id number] 2021 Unknown [id number] 2000 Unknown [id number] 2.16.840.1.427809.3.579. 2.593 2000 Unknown [id number] 2.16.840.1.913165.3.579. 2.727 2000 Unknown [id number] 2.16.840.1.646673.3.579. 2.1286 2000 Unknown [id number] 2.16.840.1.722950.3.579. 2.1286 2000 Unknown [id number] 2.16.840.1.919446.3.579. 2.727 2000 Unknown [id number] 2.16.840.1.257459.3.579. 2.727 2000 Unknown [id number] 2.16.840.1.597187.3.579. 2.9 2000 Unknown [id number] 2.16.840.1.205679.3.579. 2.1259 2000 Unknown [id number] 2.16.840.1.534308.3.579. 2.9 2000 Unknown [id number] 2.16.840.1.781167.3.579. 2.1259 2000 Unknown [id number] 2.16.840.1.942196.3.579. 2.1258 2000 Unknown [id number] 2.16.840.1.957363.3.579. 2.1259 2000 Unknown [id number] 2.16.840.1.826891.3.579. 2.1258 2000 Unknown [id number] 2.16.840.1.914887.3.579. 2.1286 1959 Unknown [id number] Social History Date Type Detail Facility Start: 11-08-2022 End: 10-07-2024 Tobacco smoking status [facility] Never smoked tobacco [facility] Start: 11-08-2022 End: 04-12-2023 Tobacco use and exposure Smokeless tobacco non-user [facility] Start: 04-12-2023 End: 04-18-2023 Alcohol intake Lifetime non-drinker (finding) [facility] Start: 05-17-2023 End: 05-24-2023 History of Social function [facility] Start: 05-17-2023 End: 05-24-2023 Humiliation, Afraid, Rape, and Kick questionnaire [HARK] [facility] Within the last year , have you been afraid of your partner or ex-partner? No [facility] Are you now , , , , never or living with a partner? [facility] How often to you hav e a drink containing alcohol? 2-4 times a month [facility] How many standard drinks containing alcohol do you have on a typical day? 3 or 4 [facility] How often do you hav e 6 or more drinks on 1 occasion? Less than monthly [facility] How hard is it for y ou to pay for the very basics like food, housing, medical care, and heating Not hard at all [facility] Do you feel stress - tense, restless, nervous, or anxious, or unable to sleep at night because your mind is troubled all the time - these days [OSQ] Not at all [facility] (I/We) worried wheth er (my/our) food would run out before (I/we) got money to buy more. Never true [facility] Start: 08-15-2022 [facility] Start: 2000 Sex Assigned At Female P [facility] Start: 10-07-2022 Gender identity Identifies as female gender (finding) [facility] Start: 10-07-2022 Sexual orientation Heterosexual (fin alura) [facility] Start: 05-24-2023 End: 09-17-2024 Alcohol intake Ex-drinker (finding) [facility] Are you now , , , , never or living with a partner? Living with partner [facility] How hard is it for y ou to pay for the very basics like food, housing, medical care, and heating Not very hard [facility] Do you feel stress - tense, restless, nervous, or anxious, or unable to sleep at night because your mind is troubled all the time - these days [OSQ] Very much [facility] Start: 01-31-2021 Education 21 [facility] Start: 11-18-2014 Sex Female (finding) [facility] Sexual Orientation [facility] NEGATED: Highlighted rowStart: NINF History of tobacco use Passive smoker [facility] Medical Equipment Procedure Code Equipment Code Equipment Origin al Text Equipment Identifier Dates Check blood suga r 4-5 times daily, fasting and 1 hour after meals. Use as directed. Dispense per insurance preference. [id number] Start: 04-12-2023 1 strip by miscellaneous route in the morning and 1 strip at noon and 1 strip in the evening and 1 strip before bedtime. Check blood sugar 4-5 times daily, fasting and 1 hour after meals. Use as directed. Dispense per insurance preference.. [id number] Start: 04-12-2023 Clinical Notes 04-12-2023 to 11-14-2024 DIMAS Cormier - 11/14/2024 11:20 AM Lala Boyd LPN - 10/17/2024 8:10 AM Dee Hernandez CMA - 09/23/2024 1:00 PM Rory Allen MD - 09/23/2024 1:00 PM EDT Note Date & Type Note Facility 11-14-2024 History of Presen t illness Narrative Reason for Appointment: Patient ID: Hesham Avalos is a 24 y.o. female who presents for Routine Visit Patient presents today for Return OB appointment. MEDICATIONS Current Outpatient Medications Medication Instructions Ferrous Gluconate (IRON 27 PO) 1 each, Daily Dypydkyd-Sfb-Gg-FA (PRE- PO) 1 each, Daily ALLERGIES No Known Allergies PROBLEMS Active Ambulatory Problems Diagnosis Date Noted No Active Ambulatory Problems Resolved Ambulatory Problems Diagnosis Date Noted Obesity affecting in second trimester ([facility]) 01/27/2023 Velamentous insertion of umbilical cord in second trimester ([facility]) 01/27/2023 Past Medical History: Diagnosis Date 6 weeks follow-up ([facility]) HISTORY PAST MEDICAL HISTORY SOCIAL HISTORY Past Medical History: Diagnosis Date 6 weeks follow-up ([facility]) Social History Tobacco Use Smoking status: Never [...] Vitals: Estimated body mass index is 38.88 kg/m as calculated from the following: Height as of 11/21/23: 5' 4 . Weight as of this encounter: 226 lb 8 oz. BP: 122/64 Patient's last menstrual period was 05/06/2024. ASSESSMENT & PLAN ICD-10-CM 1. Second trimester ([facility]) Z34.92 POCT urinalysis dipstick manually resulted 2. 27 weeks gestation of ([facility]) Z3A.27 Return OB: Patient presents [...] of: DIMAS Cormier documented in this encounter [facility] 10-17-2024 History of Presen t illness Narrative Reason for Appointment: Patient ID: Hesham Avalos is a 24 y.o. female who presents for Routine Visit Patient presents today for Return OB appointment. MEDICATIONS Current Outpatient Medications Medication Instructions Ferrous Gluconate (IRON 27 PO) 1 each, Daily Thbxebhh-Uuv-Dt-FA (PRE-SIGIFREDO PO) 1 each, Daily ALLERGIES No Known Allergies PROBLEMS Active Ambulatory Problems Diagnosis Date Noted No Active Ambulatory Problems Resolved Ambulatory Problems Diagnosis Date Noted Obesity affecting in second trimester ([facility]) 01/27/2023 Velamentous insertion of umbilical cord in second trimester ([facility]) 01/27/2023 Past Medical History: Diagnosis Date 6 weeks follow-up ([facility]) HISTORY PAST MEDICAL HISTORY SOCIAL HISTORY Past Medical History: Diagnosis Date 6 weeks follow-up ([facility]) Social History Tobacco Use Smoking status: Never [...] nursing note reviewed. Exam conducted with a food and nutrition professor present. Vitals: Estimated body mass index is 38.66 kg/m as calculated from the following: Height as of 24: 5' 4 . Weight as of this encounter: 225 lb 4 oz. BP: 114/58 Patient's last menstrual period was 05/06/2024. ASSESSMENT & PLAN ICD-10-CM 1. Second trimester ([facility]) Z34.92 POCT urinalysis dipstick manually resulted 2. 23 weeks gestation of ([facility]) Z3A.23 3. Diabetes mellitus screening Z13.1 CBC Glucose tolerance, 1 hour CBC Glucose tolerance, 1 hour Patient presents today for a routine obstetrics appointment. Patient is currently 23w3d with a Estimated Date of Delivery: 02/10/25. Patient given orders for CBC/1hour gtt and is scheduled for with [facility] for repeat US. Patient to return to clinic in 4 weeks for return OB appointment. Documented by Franci Boyd LPN on behalf of: Rebeca Hidalgo DO documented in this encounter [facility] 10-07-2024 Hospital Discharg e instructions Patient Education 10/07/2024 08:53:12 Dyspareunia, Female Dyspareunia, Female Dyspareunia is pain that is associated with sexual activity. This can affect any part of the genitals or lower abdomen. There are many possible causes of this condition. In some cases, diagnosing the cause of dyspareunia can be difficult. This condition can be mild, moderate, or severe. Depending on the cause, dyspareunia may get better with treatment, but it may return (recur) over time. What are the causes? The cause of this condition is not always known. However, problems that affect the outer female genital area (vulva), the vagina, the uterus, and other organs may cause dyspareunia. Common causes of this condition include: Vaginal dryness. Giving . Infection. Skin changes or conditions. Side effects of medicines. A condition of severe pain and tenderness of the vulva when it is touched (vulvodynia). Endometriosis. This is when tissue that is like the lining of the uterus grows on the outside of the uterus. Psychological conditions. These include depression, anxiety, or traumatic experiences. Allergic reaction. What increases the risk? The following factors may make you more likely to develop this condition: History of physical or sexual trauma. Some medicines. No longer having a monthly period (menopause). Having recently given . Taking baths using soaps that have perfumes. These can cause irritation. Douching. What are the signs or symptoms? The main symptom of this condition is pain in any part of your genitals or lower abdomen during or after sex. This may include: Pain and tenderness of the vulva when it is touched. Irritation, burning, or stinging sensations in your vulva. Aching and throbbing pain that may be constant. Pain that gets worse when something is inserted into your vagina. How is this diagnosed? This condition may be diagnosed based on: Your symptoms, including where and when your pain occurs. Your medical history. A physical exam. A pelvic exam will most likely be done. Tests, including blood tests and tests that check the body for infection. Imaging tests, such as an ultrasound. You may be referred to a health care provider who specializes in women's health (mushroom packer). How is this treated? Treatment for this condition depends on the cause of the condition and your symptoms. Treatment may include: Lubricants, ointments, and creams. Physical therapy. Massage therapy. Hormonal therapy. Medicines to: ?Prevent or fight infection. ?Relieve pain. ?Help numb the area. ?Treat depression (antidepressants). Counseling, which may include sex therapy. Surgery. In most cases, you may need to stop sexual activity until your symptoms go away or get better. Follow these instructions at home: Lifestyle Wear cotton underwear. Use water-based lubricants as needed during sex. Avoid oil-based lubricants. Do not use any products that can cause irritation. This may include certain condoms, spermicides, lubricants, soaps, tampons, vaginal sprays, or douches. Always practice safe sex. Talk to your health care provider about how to prevent sexually transmitted infections with this condition. Talk freely with your partner about your condition. General instructions Take ncpd-ozz-mdtkmlo and prescription medicines only as told by your health care provider. Urinate before you have sex. Consider joining a support group. It is up to you to get the results of any tests you have done. Ask your health care provider, or the department that is doing the tests, when your results will be ready. Keep all follow-up visits. This is important. Contact a health care provider if: You have vaginal bleeding after having sex. You develop a lump at the opening of your vagina even if the lump is painless. You have symptoms that get worse or do not improve with treatment. You have: ?Abnormal discharge from your vagina. ?Vaginal dryness. ?Itchiness or irritation of your vulva or vagina. You develop a new rash. You have a fever. You have pain when you urinate or blood in your urine. Summary Dyspareunia is pain that is associated with sexual activity. This can affect any part of the genitals or lower abdomen. There are many causes of this condition. Treatment depends on the cause and your symptoms. In most cases, you may need to stop sexual activity until your symptoms improve. Take naxg-hgp-hopnlsc and prescription medicines only as told by your health care provider. Contact a health care provider if your symptoms get worse or do not improve with treatment. Keep all follow-up visits. This is important. This information is not intended to replace advice given to you by your health care provider. Make sure you discuss any questions you have with your health care provider. Document Revised: 2021 Document Reviewed: 2021 [employer] Patient Education 2023 [employer]. Follow Up Care 08/08/2024 12:40:44 With:TINO MACK, Darin Cummins, URL Address: [facility] [address] , [place] [address]- [phone] When: only if needed [facility] 10-07-2024 Note Patient Education Obstetrics and Gynecology Dyspareunia, Female Dyspareunia is pain that is associated with sexual activity. This can affect any part of the genitals or lower abdomen. There are many possible causes of this condition. In some cases, diagnosing the cause of dyspareunia can be difficult. This condition can be mild, moderate, or severe. Depending on the cause, dyspareunia may get better with treatment, but it may return (recur) over time. What are the causes? The cause of this condition is not always known. However, problems that affect the outer female genital area (vulva), the vagina, the uterus, and other organs may cause dyspareunia. Common causes of this condition include: ??? Vaginal dryness. ??? Giving . ??? Infection. ??? Skin changes or conditions. ??? Side effects of medicines. ??? A condition of severe pain and tenderness of the vulva when it is touched (vulvodynia). ??? Endometriosis. This is when tissue that is like the lining of the uterus grows on the outside of the uterus. ??? Psychological conditions. These include depression, anxiety, or traumatic experiences. ??? Allergic reaction. What increases the risk? The following factors may make you more likely to develop this condition: ??? History of physical or sexual trauma. ??? Some medicines. ??? No longer having a monthly period (menopause). ??? Having recently given . ??? Taking baths using soaps that have perfumes. These can cause irritation. ??? Douching. What are the signs or symptoms? The main symptom of this condition is pain in any part of your genitals or lower abdomen during or after sex. This may include: ??? Pain and tenderness of the vulva when it is touched. ??? Irritation, burning, or stinging sensations in your vulva. ??? Aching and throbbing pain that may be constant. ??? Pain that gets worse when something is inserted into your vagina. How is this diagnosed? This condition may be diagnosed based on: ??? Your symptoms, including where and when your pain occurs. ??? Your medical history. ??? A physical exam. A pelvic exam will most likely be done. ??? Tests, including blood tests and tests that check the body for infection. ??? Imaging tests, such as an ultrasound. You may be referred to a health care provider who specializes in women's health (mushroom packer). How is this treated? Treatment for this condition depends on the cause of the condition and your symptoms. Treatment may include: ??? Lubricants, ointments, and creams. ??? Physical therapy. ??? Massage therapy. ??? Hormonal therapy. ??? Medicines to: ? Prevent or fight infection. ? Relieve pain. ? Help numb the area. ? Treat depression (antidepressants). ??? Counseling, which may include sex therapy. ??? Surgery. In most cases, you may need to stop sexual activity until your symptoms go away or get better. Follow these instructions at home: Lifestyle ??? Wear cotton underwear. ??? Use water-based lubricants as needed during sex. Avoid oil-based lubricants. ??? Do not use any products that can cause irritation. This may include certain condoms, spermicides, lubricants, soaps, tampons, vaginal sprays, or douches. ??? Always practice safe sex. Talk to your health care provider about how to prevent sexually transmitted infections with this condition. ??? Talk freely with your partner about your condition. General instructions ??? Take ljlq-knc-wqfyfws and prescription medicines only as told by your health care provider. ??? Urinate before you have sex. ??? Consider joining a support group. ??? It is up to you to get the results of any tests you have done. Ask your health care provider, or the department that is doing the tests, when your results will be ready. ??? Keep all follow-up visits. This is important. Contact a health care provider if: ??? You have vaginal bleeding after having sex. ??? You develop a lump at the opening of your vagina even if the lump is painless. ??? You have symptoms that get worse or do not improve with treatment. ??? You have: ? Abnormal discharge from your vagina. ? Vaginal dryness. ? Itchiness or irritation of your vulva or vagina. ??? You develop a new rash. ??? You have a fever. ??? You have pain when you urinate or blood in your urine. Summary ??? Dyspareunia is pain that is associated with sexual activity. This can affect any part of the genitals or lower abdomen. ??? There are many causes of this condition. Treatment depends on the cause and your symptoms. In most cases, you may need to stop sexual activity until your symptoms improve. ??? Take skyh-cmz-uxbuwcc and prescription medicines only as told by your health care provider. ??? Contact a health care provider if your symptoms get worse or do not improve with treatment. ??? Keep all follow-up visits. This is important. This information is not intended to replace (more content not included)... [facility] 09-23-2024 History of Presen t illness Narrative Headache/epigastric pain/blurry vision/swelling? No Cramping/contractions? No Abnormal vaginal discharge? No Spotting/vaginal bleeding? No Loss or gush of fluid like your water may have broken? No Do you have cats at home? No Do you change the litter box (reason: risk of toxoplasmosis)? No Genetic testing done this here or other office? low risk / DOESN'T WANT TO KNOW GENDER Have you been seen here at [facility] in a previous ? No Recent ER visits or hospitalizations? No Bring blood sugar log or meter with you today? (Please bring them with you for every visit at [facility]) n/a Flu vaccine (Feb-June)? No Any concerns that you would like me to mention to the provider today? No REASON FOR CONSULTATION: History of a result Vasa previa in a previous gestation. She is presenting today for anatomic survey. She has a history of 2 uncomplicated full-term vaginal deliveries. HISTORY OF PRESENT ILLNESS: Hesham Avalos is a pleasant 24 y.o. at 20w0d due on Estimated Date of Delivery: 02/10/25 Currently the patient has no complaints. The patient denies nausea, vomiting, abdominal pain, vaginal bleeding, SOB or chest pain. PAST OBSTETRICAL HISTORY: OB History 3 Para 2 Term 2 0 AB 0 Living 2 SAB 0 IAB 0 Ectopic 0 Multiple Live Births 2 SURGICAL HISTORY: Past Surgical History: Procedure Laterality Date MOUTH SURGERY 2018 MYRINGOTOMY W/ TUBES 2002 ALLERGIES: Allergies Allergen Reactions No Known Drug Allergies CURRENT MEDICATIONS: Current Outpatient Medications: blood sugar diagnostic strip, Check blood sugar 4-5 times daily, fasting and 1 hour after meals. Use as directed. Dispense per insurance preference., Disp: 200 strip, Rfl: 6 blood-glucose meter misc, Check blood sugar 4-5 times daily, fasting and 1 hour after meals. Use as directed. Dispense per insurance preference., Disp: 1 each, Rfl: 0 lancets 31 gauge misc, 1 strip by miscellaneous route in the morning and 1 strip at noon and 1 strip in the evening and 1 strip before bedtime. Check blood sugar 4-5 times daily, fasting and 1 hour after meals. Use as directed. Dispense per insurance preference.., Disp: 100 each, Rfl: 1 [id number] (DUET DHA WITH OMEGA-3) 25 mg iron-1 mg -400 mg combo pack, Take by mouth., Disp: , Rfl: ferrous sulfate (HIGH POTENCY IRON) 27 mg iron tablet, Take by mouth. (Patient not taking: Reported on 09/23/2024), Disp: , Rfl: [id number] 25 mg iron-1 mg -400 mg combo pack, Take by mouth., Disp: , Rfl: REVIEW OF SYSTEMS: Head and Neck: Negative for any dizziness and headaches. Cardiovascular and Respiratory System: Denies any chest pain, shortness of breath, and coughing. Abdominal and System: Denies any abdominal pain, nausea, vomiting, vaginal bleeding, and vaginal discharge FAMILY/GENETIC HISTORY: No family history of VTE, cardiac defects and mental retardation . SOCIAL HISTORY:Patient denies tobacco use, alcohol use, or drug use. 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 Gravid abdomen, Respirations not labored. DISCUSSION: I reviewed the results of her anatomic survey today. The fetus is measuring appropriately with normal amniotic fluid and no structural malformations are seen. Due to position some views were limited and she is scheduled for follow-up in 4-6 weeks of gestation. She is no evidence of abnormal placentation on today's scan. SUMMARY/RECOMMENDATION: The following is a summary of our recommendations: 1. Aneuploidy screening: low risk CFDNA 2. Completion of Anatomy scan in 4-6 weeks 3. If clinically unable to follow growth due to BMI, consider growth scans every 4 weeks after 28 weeks 4. repeat gdm screen at 26-28 weeks 5. No need for additional testing 6.. Delivery timing: at or after 39 weeks 8. Delivery method preferred vaginal. [facility] C/[facility] for usual obstetrical indications TIME OF CONSULTATION: We spent 30 minutes with the patient, >50% in discussion and counseling, coordination of care which was wpdn-gn-bcps. documented in this encounter [facility] 09-17-2024 History of Presen t illness Narrative Reason for Appointment: Patient ID: Hesham Avalos is a 24 y.o. female who presents for Routine Visit Patient presents today for Acute Visit. and Return OB appointment. MEDICATIONS Current Outpatient Medications Medication Instructions Ferrous Gluconate (IRON 27 PO) 1 each, Daily Yyfuyxzf-Pnn-Qv-FA (PRE- PO) 1 each, Daily ALLERGIES No [...] reviewed. Vitals: Estimated body mass index is 38.28 kg/m as calculated from the following: Height as of 11/21/23: 5' 4 . Weight as of this encounter: 223 lb. BP: 124/78 Patient's last menstrual period was 05/06/2024. ASSESSMENT & PLAN ICD-10-CM 1. Second trimester Z34.92 US OB 14+ weeks anatomy scan POCT urinalysis dipstick manually resulted CANCELED: POCT urinalysis dipstick manually resulted 2. 19 weeks gestation of Z3A.19 POCT urinalysis dipstick manually resulted 3. Screening, , for anatomic survey Z36.89 US OB 14+ weeks anatomy scan Return OB: Patient presents today for a routine obstetrics appointment. Patient is currently 19w1d . Patient states she is doing well but has complaints of being tired due to current . Patient has verbalizes frequent movement. Orders Placed This Encounter Procedures US OB 14+ weeks anatomy scan POCT urinalysis dipstick manually resulted Follow Up: Patient is to return to office in 4week for routine OB appointment. Documented by DIMAS Cormier on behalf of: DIMAS Cormier Reason for Appointment: Patient ID: Hesham Avalos is a 24 y.o. female who presents for Routine Visit Patient presents today for Return OB appointment. MEDICATIONS Current Outpatient Medications Medication Instructions Ferrous Gluconate (IRON 27 PO) 1 each, Daily Vonmmltb-Tme-Oy-FA (PRE-SIGIFREDO PO) 1 each, Daily ALLERGIES No [...] nursing note reviewed. Exam conducted with a food and nutrition professor present. Vitals: Estimated body mass index is 38.28 kg/m as calculated from the following: Height as of 11/21/23: 5' 4 . Weight as of this encounter: 223 lb. BP: 124/78 Patient's last menstrual period was 05/06/2024. ASSESSMENT & PLAN ICD-10-CM 1. Second trimester Z34.92 US OB 14+ weeks anatomy scan POCT urinalysis dipstick manually resulted CANCELED: POCT urinalysis dipstick manually resulted 2. 19 weeks gestation of Z3A.19 POCT urinalysis dipstick manually resulted 3. Screening, , for anatomic survey Z36.89 US OB 14+ weeks anatomy scan Patient presents today for a routine obstetrics appointment. Patient is currently 19w1d with a Estimated Date of Delivery: 02/10/25. Patient has not yet had early 1 hour gtt done at this time due to going ton vacation. Patient is already scheduled for anatomy scan with Maternal [facility]. Patient has not complaints at this time and will return to clinic in 4 weeks for routine OB appointment. Documented by Franci Boyd LPN on behalf of: DIMAS Cormier documented in this encounter [facility] 08-20-2024 History of Presen t illness Narrative Reason for Appointment: Patient ID: Hesham Avalos is a 24 y.o. female who presents for Routine Visit Patient presents today for Return OB appointment. MEDICATIONS Current Outpatient Medications Medication Instructions Ferrous Gluconate (IRON 27 PO) 1 each, Daily Ndciuesy-Lsr-Ns-FA (PRE-SIGIFREDO PO) 1 each, Daily ALLERGIES No [...] nursing note reviewed. Exam conducted with a food and nutrition professor present. Vitals: Estimated body mass index is [...] Date of Delivery: 02/10/25. Pt to see [facility] in September for anatomy scan. Pt given early one hour. Pt to return in 4 weeks for scheduled ob appt. Pt advised to take a baby aspirin. Documented by Brittany Christensen LPN on behalf of: Rebeca Hidalgo DO documented in this encounter [facility] 08-05-2024 Note Patient Education Urology Cystoscopy Cystoscopy [...] including vitamins, herbs, eye drops, creams, and zunq-lep-bjsphld medicines. ??? Any problems you or family [...] tells you to take them. ??? Taking mmyd-wkv-mjhqrlg medicines, vitamins, herbs, and supplements. Tests You [...] these instructions at home: Medicines ??? Take ewxo-bjn-kdiutvo and prescription medicines only as told by [...] (biopsy) during your (more content not included)... [facility] 07-23-2024 History of Presen t illness Narrative Reason for Appointment: Patient ID: Hesham Avalos is a 23 y.o. female who presents for No chief complaint on file. Patient presents today for Return OB appointment. MEDICATIONS Current Outpatient Medications Medication Instructions Ferrous Gluconate (IRON 27 PO) 1 each, Daily Xmulbkfz-Wnw-Wm-FA (PRE-SIGIFREDO PO) 1 each, Daily ALLERGIES No [...] nursing note reviewed. Exam conducted with a food and nutrition professor present. Vitals: Estimated body mass index is [...] or undercooked meat, and [facility]. Patient has been consulted regarding any further do's and don'ts of . Patient voiced understanding and all questions and concerns were answered. Cultures obtained. Pt being referred to [facility] for h/o placental abnormality (vasa previa). Pt has cyst on urethra- referred to urologist Orders Placed This Encounter Procedures CHLAMYDIA TRACHOMATIS (GENITO/STI) Neisseria gonorrhea DNA probe, direct POCT urinalysis dipstick manually resulted Follow Up: Patient is to return in 4 weeks for routine OB appointment. Documented by Brittany Christensen LPN on behalf of: Rebeca Hidalgo DO documented in this encounter [facility] 05-24-2023 History of Presen t illness Narrative Hesham Avalos is a 22 y.o. 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 SUBJECTIVE: MEDICATIONS: Current Outpatient Medications Medication Instructions Cqwobk-UcShvt-Ukpet-FA-[place] 3 (Duet DHA 400) 25-1 & 400 MG misc Oral ALLERGIES: No Known Allergies SURGICAL HISTORY: Past Surgical History: Procedure Laterality Date MOUTH SURGERY 2018 MYRINGOTOMY W/ TUBES 2002 FAMILY HISTORY: Family History Problem Relation Name [...] tenderness or frontal sinus tenderness. Mouth/Throat: Lips: Palmer. Mouth: Mucous membranes are moist. Pharynx: Oropharynx [...] follow-ups on file. documented in this encounter [facility] 04-12-2023 History of Presen t illness Narrative Headache/epigastric pain/blurry vision/swelling? NO Cramping/contractions? 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 Patient does have ultrasound and office visit scheduled with us. Thank you for allowing me to participate in the care of Hesham Avalos. If there any questions please do not hesitate to contact us. Daniella Reina MD Maternal- Medicine [facility] [address] [place] [address] [facility], the CDC, and other organizations representing maternal and public health professionals recommend that , , and lactating people and those considering receive the COVID-19 vaccination. Vaccination is the best method to reduce maternal and complications of SARS-CoV-2 infection. This document was created with 20[employer] technology. Though I make every effort to review the dictation as it is transcribed, on occasion the spoken word can be misinterpreted by the technology leading to inappropriate words, phrases, or sentences. This note is addressed to the requesting provider as a consultation for clinical guidance. Specific medical abbreviations are occasionally used and those are generally approved by the [place]?Board of?Obstetrics and?Gynecology?as well as?[employer] abbreviations. The above plan of care was based solely on the diagnoses for which a consultation was requested. ?More frequent testing may be indicated based on her other medical/obstetrical conditions. The management of other or medical conditions is beyond the scope of requested consultation and will continue to be followed by the primary police cadet or primary care provider. Note to patient: The 21st Century Cures Act makes medical notes like [...] of the practitioner. documented in this encounter [facility] System Evaluation + Plan note No data available for this section [facility] Evaluation note Diagnosis Encounter for wellness examination- Primary Anemia, unspecified type [facility] Diagnosis 35 weeks gestation of - Primary Polyhydramnios affecting [facility] Diagnosis 11 weeks gestation of First trimester state, incidental History of placental abnormality Vaginal discharge Leukorrhea, not specified as infective Urethral cyst Other specified disorders of urethra documented [facility]* Diagnosis Second trimester state, incidental 15 weeks gestation of Diabetes mellitus screening Screening for diabetes mellitus documented [facility]* Diagnosis Obesity affecting in second trimester, unspecified obesity type- Primary documented in this encounter [facility] note* Diagnosis Polyhydramnios affecting - Primary Low-lying placenta Hemorrhage from placenta previa, unspecified as to episode of care Placenta previa in second trimester Velamentous insertion of umbilical cord in second trimester Vasa previa, single or unspecified fetus History of hemorrhage, currently in second trimester documented [facility] encounter [facility]* Diagnosis Second trimester state, incidental 19 weeks gestation of Screening, , for anatomic survey Encounter for anatomic survey documented in this encounter [facility]* Diagnosis Second trimester (HHS-HCC) state, incidental 23 weeks gestation of (HHS-HCC) Diabetes mellitus screening Screening for diabetes mellitus documented [facility]* Diagnosis Second trimester (HHS-HCC) state, incidental 27 weeks gestation of (HHS-HCC) documented in this encounter [facility] HealthcareInstructionsNot on filedocumented in this encounterPro[facility] SystemInstructionsNot on filedocumented in this encounterProMediva Health SystemInstructionsNot on filedocumented in this encounterProMedica [facility] SystemInstructionsNot on filedocumented in this encounter[facility] Progress note No data available for this section [facility] Summary Purpose Family History No Family History Records FoundNo Family History Records FoundNo Family History Records FoundNo Family History Records Found No data available for this section No Family History Records FoundNo Family History Records FoundNo Family History Records Found Advance Directives No Advanced Directives Records FoundNo Advanced Directives Records FoundNo Advanced Directives Records FoundNo Advanced Directives Records FoundNo Advanced Directives Records FoundNo Advanced Directives Records FoundNo Advanced Directives Records Found Reason for Referral Specialty Diagnoses / Procedures Referred By Contbrooks t Referred To Contact Daniella Reina MD [address] [place] [address] Referral ID Status Reason Start Date Expiration Date V isits Requested Visits Authorized [id number] Pending Review 1 1 Referral ID Status Reason Start Date Expiration Date V isits Requested Visits Authorized [id number] Pending Review 1 1 Additional Source Comments INFORMATION SOURCE (unrecogn ized section and content) DATE CREATED AUTHOR 10/05/2018 [facility] DATE CREATED AUTHOR AUTHOR'S ORGANIZ ATION 04/13/2022 [facility] DATE CREATED AUTHOR AUTHOR'S ORGANIZ ATION 07/27/2024 [facility] DATE CREATED AUTHOR AUTHOR'S ORGANIZ ATION 09/24/2024 [facility] DATE CREATED AUTHOR AUTHOR'S ORGANIZ ATION 10/08/2024 [facility] DATE CREATED AUTHOR AUTHOR'S ORGANIZ ATION 10/19/2024 [facility] DATE CREATED AUTHOR AUTHOR'S ORGANIZ ATION 10/29/2024 [facility] Care Teams (unrecognized sec tion and content) 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 Relationship Specialty Start Date End Date Taisha Ortiz MD [address] [place], [place] [phone] PCP - General Family Medicine 05/03/23 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 Relationship Specialty Start Date End Date Taisha Ortiz MD [address] [facility] [address] [place], [place] [phone] PCP - General Family Medicine 05/03/23 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 Relationship Specialty Start Date End Date Taisha Ortiz MD [address] [place] [address] PCP - General Family Medicine 05/03/23 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 Relationship Specialty Start Date End Date Taisha Ortiz MD [address] [place] [address] PCP - General Family Medicine 05/03/23 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 Relationship Specialty Start Date End Date Taisha Ortiz MD [address] [place] [address] PCP - General Family Medicine 05/03/23 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 Relationship Specialty Start Date End Date Taisha Ortiz MD [address] [place] [address] PCP - General Family Medicine 05/03/23 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 Relationship Specialty Start Date End Date Taisha Ortiz MD [address] [place] [address] PCP - General Family Medicine 05/03/23 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 Relationship Specialty Start Date End Date Taisha Ortiz MD [address] [place] [address] PCP - General Family Medicine 05/03/23 Stephanie Sotelo NP [address] [place] [address] PCP - [facility] 07/16/24 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 Relationship Specialty Start Date End Date Taisha Ortiz MD [address] [facility] [place], [place] [phone] PCP - General Family Medicine 05/03/23 Stephanie Sotelo NP [address] [facility] [place], [place] [phone] PCP - [employer] 07/16/24 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 [employer] [facility]. provides no warranty or guarantee of the accuracy or completeness of information in this document.
--- OUTSIDE RECORDS SUMMARY | 2024-11-16 09:05 | XMS_ITS | Clinical Summary ---
Author Organization [employer] Address [id number] [place] [address] Care Team Providers Care Online Services Manager Name Role Phone Unavailable Primary Care Provider Unavailabl e Allergies Active Allergy Reactions Criticality Noted Date Comments No Known Drug Allergies 05/29/2017 Medications [id number] 25 mg iron-1 mg -400 mg combo pack Take by mouth. A ctive ferrous sulfate (HIGH POTENCY IRON) 27 mg iron tablet Take by mouth. Activ e [id number] lic-om3 (DUET DHA WITH OMEGA-3) 25 mg iron-1 mg -400 mg combo pack Take by mouth. A ctive blood sugar diagnostic strip Check blood sugar 4-5 times daily, fasting and 1 hour after meals. Use as directed. Dispense per insurance preference. 200 strip 6 3 Active blood-glucose meter misc Check blood sugar 4-5 times daily, fasting and 1 hour after meals. Use as directed. Dispense per insurance preference. 1 each 3 Active lancets 31 gauge misc 1 strip by miscellaneous route in the morning and 1 strip at noon and 1 strip in the evening and 1 strip before bedtime. Check blood sugar 4-5 times daily, fasting and 1 hour after meals. Use as directed. Dispense per insurance preference.. 100 each 1 3 Active Active Problems Problem Noted Date Diagnosed Date Velamentous insertion of umbilical cord in secon d trimester 01/27/2023 Obesity affecting in second trimester 01/27/2023 Estimated Date of Delivery Comme nts Yes 02/10/2025 Based on last me nstrual period of 05/06/2024 Resolved Problems Problem Noted Date Diagnosed Date Resolved Date Placenta previa in second trimester 01/27/2023 04/12/2023 Vasa previa 01/27/2023 04/12/2023 Encounters Date Type Department Care Team Description 10/24/2024 Travel 09/23/2024 1:00 PM EDT Office Visit Maternal- Medicine at [facility] [address] [place] [address] Cintia Banegas MD Obesity affecting in second trimester, unspecified obesity type (Primary Dx) 09/23/2024 11:09 AM EDT - 09/23/2024 11:59 PM EDT Hospital Encounter [facility] - [facility] [address] [place] [phone] Screening, , for anatomic survey Discharge Disposition: Home 09/23/2024 Orders Only Maternal- Medicine at [facility] [address] [place] [phone] Sherrill Hernandez CMA Polyhydramnios affecting (Primary Dx); Low-lying placenta; Placenta previa in second trimester; Velamentous insertion of umbilical cord in second trimester; Vasa previa, single or unspecified fetus; History of hemorrhage, currently in second trimester 09/23/2024 Travel from Last 3 Months Immunizations Immunization Administration Dates Next Due DTP 12/19/2020 DTaP 12/08/2004 DTaP, Unspecified 03/23/2001,01/12/2001,10/24/19 Hep B / HIB 03/23/2001,2000 Hep B, Adolescent or Pediatric 10/29/2019,2018,2000 Hepatitis B 05/14/2019 Hib (HbOC) 01/12/2001 IPV 12/08/2004, 1,01/12/2001,10/23 Influenza, Injectable, quadr ivalent (PF) 04/11/2019(Deferred: Patient decision) MMR 12/08/2004,09/28/2001 MMRV 04/11/2019 Meningococcal Conjugate 11/09/2017 Family History Medical History Relation Name Comments No Known Problems Father Cancer Maternal Grandfather Cirrhosis Maternal Grandmother Diabetes Maternal Grandmother Heart disease Maternal Grandmother Hypertension Maternal Grandmother No Known Problems Mother Cancer Paternal Grandfather Atrial fibrillation Paternal Grandmother Cancer Paternal Grandmother Epilepsy Sister Relation Name Status Comments Father Alive Maternal Grandfather Maternal Grandmother Mother Alive Paternal Grandfather Paternal Grandmother Sister Social History Tobacco Use Types Packs/Day Years Used Date Smoking Tobacco: Never Passive Smoke Exposure: Never Smokeless Tobacco: Never Tobacco Cessation:Counseling Given: Not Answered Alcohol Use Standard Drinks/Week Comments Not Currently 0 (1 standard drink = 0.6 oz pur e alcohol) Social Connection and Isolat ion Panel [NHANES] Answer Date Recorded In a typical week, how many times do you talk on the phone with family, friends, or neighbors? More than three times a week 01/31/2021 How often do you get togethe r with friends or relatives? Three times a week 01/31/2021 How often do you attend chur ch or baptist services? Never 01/31/2021 Do you belong to any clubs o r organizations such as muslim groups, unions, fraternal or athletic groups, or school groups? No 01/31/2021 How often do you attend meet ings of the clubs or organizations you belong to? Never 01/31/2021 Are you , , di vorced, , never , or living with a partner? Living with partner 01/31/2021 AUDIT-C Answer Date Recorded Q1: How often do you have a drink containing alc ohol? 2-4 times a month 01/31/2021 Q2: How many drinks containi ng alcohol do you have on a typical day when you are drinking? 3 or 4 01/31/2021 Q3: How often do you have si x or more drinks on one occasion? Less than monthly 01/31/2021 Overall Financial Resource Strain (CARDIA) Answe r Date Recorded How hard is it for you to pa y for the very basics like food, housing, medical care, and heating? Not very hard 01/31/2021 PHQ-2 Answer Date Recorded Total Score 6 01/31/2021 [facility] - Occupational Stress Questionnaire Answer Date Recorded Do you feel stress - tense, restless, nervous, or anxious, or unable to sleep at night because your mind is troubled all the time - these days? Very much 01/31/2021 Exercise Vital Sign Answer Date Recorde d On average, how many days pe r week do you engage in moderate to strenuous exercise (like a brisk walk)? 1 day 01/31/2021 On average, how many minutes do you engage in exercise at this level? 10 min 01/31/2021 PRAPARE - Transportation Answer Date Re corded In the past 12 months, has l ack of transportation kept you from medical appointments or from getting medications? No 01/15 In the past 12 months, has l ack of transportation kept you from meetings, work, or from getting things needed for daily living? No 01/31/2021 Childcare Answer Date Recorded Do problems getting child ca re make it difficult for you to work or study? No 01/31/2021 Employment Answer Date Recorded Do you need help finding a Virtual [employer] career center and/or a training program? No 01/31/2021 Hunger Screening Answer Date Recorded Within the past 12 months we worried whether our food would run out before we got money to buy more. Never True 09/23/2024 Within the past 12 months th e food we bought just didn't last and we didn't have money to get more. Never True 09/23/2024 Purpose - Life Answer Date Recorded I have a purpose and direction in my life. Agree 01/31/2021 Education Answer Date Recorded What is the highest level of school you have completed or the highest degree you have received? Some college, no degree 01/31/2021 Estimated Date of Delivery Comme nts Yes 02/10/2025 Based on last me nstrual period of 05/06/2024 Sex and Gender Information Value Date Recorded Sex Assigned at Female 01/24/2023 7:49 AM EDT Legal Sex Female 12:15 PM EDT Gender Identity Female 01/24/2023 7:49 AM EDT Sexual Orientation Straight 01/24/2023 7: 49 AM EDT Last Filed Vital Signs Vital Sign Reading Time Taken Comments Blood Pressure 119/75 09/23/2024 11:59 AM EDT Pulse 90 09/23/2024 11:59 AM EDT Temperature 35.5 C (95.9 F) 02/02/2021 10:17 AM EDT Respiratory Rate 19 07/28/2020 8:51 AM EDT Oxygen Saturation 99% 02/02/2021 10: 17 AM EDT Inhaled Oxygen Concentration - - Weight 100.5 kg (221 lb 9.6 oz) 025 11:59 AM EDT Height 162.6 cm (5' 4 ) 09/23/2024 11:5 9 AM EDT Body Mass Index 38.04 09/23/2024 11:59 AM EDT Plan of Treatment Health Maintenance Due Date Last Done Comments Depression Screening 2012 Adult BMI Follow Up Plan 2018 Chlamydia Screening 11/10/2023 11/09/2022 COVID-19 Vaccine (2023-05 5 season) 2023 06/03/2021, 05/13/2021 Influenza Vaccine 12/16/2024 02/01/2021, 02/01/2021 Adult BMI Screening 09/23/2025 09/23/2024 Tobacco Screening 09/23/2025 09/23/2024 Pap Smear 11/09/2025 11/09/2022 DTaP,Tdap and Td Vaccines (6 - Tdap) 12/19/2030 12/19/2020, 12/08/2004, 03/23/2001, Additional history exists Medical Devices Not on file Procedures Procedure Name Priority Date/Time Associated Diagnosis Comments [facility] OB FOLLOW-UP, 1 FETUS Routine 10/24/2024 2:23 PM EDT Polyhydramnios affecting Low-lying placenta Placenta previa in second trimester Velamentous insertion of umbilical cord in second trimester Vasa previa, single or unspecified fetus History of hemorrhage, currently in second trimester [facility] COMPREHENSIVE ANATOMIC SURVEY Routine 09/23/2024 1:13 PM EDT Screening, , for anatomic survey CHLAMYDIA/GC BY PCR ELISABETH SWAB Routine 11/09/2022 from Last 3 Months or Most Recently Relevant to Health Maintenance Results * US M OB FOLLOW-UP, 1 FETUS (10/24/2024 2:23 PM EDT) Only the most recent of2 resultswithin the time period is included. Anatomical Region Laterality Modality OB-CLINICAL MANAGER Ultrasound 10/24/2024 12:5 8 PM EDT Narrative 10/25/2024 12:56 PM EDT NAME: CLAUDIA DAHL : 2000 SEX: F Accession Number: [id number] ORDERING PHYSICIAN: CINTIA BANEGAS REFERRING PHYSICIAN: REBECA PACE Coding ----- --------- Procedures 32927: Follow-up Ultrasound, per fetus Indication ----- --------- Obesity in , h/o vasa previa that resolved in prior , Screening for follow-up survey History ----- --------- OB History 3. Para 2 T2 Current ----- --------- Cell free DNA low risk analysis Maternal Assessment ----- --------- Physical Exam Height 163 cm, 5 ft 4 in. Initial weight 101 kg, 222 lb. Initial BMI 38.11 kg/m Method ----- --------- Transabdominal ultrasound examination ----- --------- Rivera . Number of fetuses: 1 Dating ----- --------- LMP on: 05/06/2024 GA by LMP 24 w + 3 d RAY by LMP: 02/10/2025 Ultrasound examination on: 10/24/2024 GA by U/S based upon: AC, BPD, Femur, HC GA by U/S 25 w + 5 d RAY by U/S: 02/01/2025 Assigned: based on the LMP, selected on 09/23/2024 Assigned GA 24 w + 3 d Assigned RAY: 02/10/2025 General Evaluation ----- --------- Cardiac activity Present. FHR 142 bpm. Presentation: breech Placenta: Placental site: posterior, previously documented away from cervical os Umbilical cord: Cord vessels: 3 vessel cord. Insertion site: documented previously Amniotic fluid: Amount of AF: normal amount. MVP 6.2 cm Biometry ----- --------- Standard BPD 62.5 mm 25w 2d 75% Hadlock OFD 87.1 mm 28w 0d >99% Heri HC 239.9 mm 26w 0d 86% Hadlock Cerebellum tr 27.9 mm 24w 5d 70% Andrea AC 222.8 mm 26w 5d 95% Hadlock Femur 45.2 mm 25w 0d 54% Hadlock Humerus 43.1 mm 25w 5d 82% Heri HC / AC 1.08 EFW 872 g 95% Hadlock EFW (lb) 1 lb EFW (oz) 15 oz EFW by: Hadlock ([id number]) Extended Tibia 40.1 mm 25w 2d 74% Heri Forensic Nurse 4.7 mm CM 7.6 mm 89% Nicolaides Inner IOD 17.9 mm Outer IOD 43.1 mm Head / Face / Neck Cephalic index 0.72 2% Nicolaides Nasal bone: present Extremities / Bony Struc FL / BPD 0.72 FL / HC 0.19 FL / AC 0.20 Other Structures FHR 142 bpm Anatomy ----- --------- The following structures appear normal: Head/Neck: Cranium. Lateral ventricles. Cavum septi pellucidi. Cerebellum. Cisterna magna. Parenchyma. Face: Lips. Profile. Nose. Nasal bone. Maxilla. Mandible. Orbits. Heart/Thorax: 4-chamber view. RVOT view. LVOT view. 3-vessel view. 9-liskoi-[id number] view. Situs. Aortic arch view. Bicaval view. Ductal arch view. Interventricular septum. Great vessels. Cardiac position. Cardiac axis. Cardiac size. Cardiac rhythm. Right lung. Left lung. Diaphragm. Abdomen: Stomach. Kidneys. Bladder. Small bowel. Large bowel. Spine: Cervical spine. Thoracic spine. Lumbar spine. Sacral spine. Extremities/Skeleton: Left hand. Skeleton The following structures were documented previously: Head / Neck Choroid plexus. Midline falx. Vermis. Neck. Abdomen Abdom. wall. Cord insertion. Right renal artery. Left renal artery. Genitals. Extremities / Right upper arm. Right forearm. Right hand. Left upper arm. Left forearm. Right upper leg. Right lower leg. Right foot. Left upper leg. Left lower leg. Left foot. Maternal Structures ----- --------- Uterus Visualized Cervix Suboptimal Approach - Transabdominal Right Ovary Not visualized Left Ovary Not visualized Cul de Sac Suboptimal Impression ----- --------- Single viable intrauterine with macrosomic growth. EFW measures at the 95%, AC measures at the 95%. anatomic survey did not reveal sonographic evidence of any gross structural abnormalities. Amniotic fluid MVP measures 6.2 cm. Recommendations ----- --------- Macrosomic growth pattern on ultrasound today, please correlate with clinical findings and diabetes screen. Subsequent follow up or other follow up as clinically determined by primary OB provider unless otherwise specified by [facility]. Results forwarded to ordering provider so they can follow up with the patient as necessary. Procedure Note Daniella Reina MD - 10/25/2024 NAME: CLAUDIA DAHL : 2000 SEX: F Accession Number: [id number] ORDERING PHYSICIAN: CNITIA BANEGAS REFERRING PHYSICIAN: REBECA PACE Coding ----- --------- Procedures 41424: Follow-up Ultrasound, per fetus Indication ----- --------- Obesity in , h/o vasa previa that resolved in prior ,Screening for follow-up survey History ----- --------- OB History 3. Para 2 T2 Current ----- --------- Cell free DNA low risk analysis Maternal Assessment ----- --------- Physical Exam Height 163 cm, 5 ft 4 in. Initial weight 101 kg, 222 lb.Initial BMI 38.11 kg/m Method ----- --------- Transabdominal ultrasound examination ----- --------- Rivera . Number of fetuses: 1 Dating ----- --------- LMP on: 05/06/2024 GA by LMP 24 w + 3 d RAY by LMP: 02/10/2025 Ultrasound examination on: 10/24/2024 GA by U/S based upon: AC, BPD, Femur, HC GA by U/S 25 w + 5 d RAY by U/S: 02/01/2025 Assigned: based on the LMP, selected on 09/23/2024 Assigned GA 24 w + 3 d Assigned RAY: 02/10/2025 General Evaluation ----- --------- Cardiac activity Present. FHR 142 bpm. Presentation: breech Placenta: Placental site: posterior, previously documented away fromcervical os Umbilical cord: Cord vessels: 3 vessel cord. Insertion site: documentedpreviously Amniotic fluid: Amount of AF: normal amount. MVP 6.2 cm Biometry ----- --------- Standard BPD 62.5 mm 25w 2d 75% Hadlock OFD 87.1 mm 28w 0d >99% Heri HC 239.9 mm 26w 0d 86% Hadlock Cerebellum tr 27.9 mm 24w 5d 70% Hill AC 222.8 mm 26w 5d 95% Hadlock Femur 45.2 mm 25w 0d 54% Hadlock Humerus 43.1 mm 25w 5d 82% Heri HC / AC 1.08 EFW 872 g 95% Hadlock EFW (lb) 1 lb EFW (oz) 15 oz EFW by: Hadlock ([id number]) Extended Tibia 40.1 mm 25w 2d 74% Heri Forensic Nurse 4.7 mm CM 7.6 mm 89% Nicolaides Inner IOD 17.9 mm Outer IOD 43.1 mm Head / Face / Neck Cephalic index 0.72 2% Nicolaides Nasal bone: present Extremities / Bony Struc FL / BPD 0.72 FL / HC 0.19 FL / AC 0.20 Other Structures FHR 142 bpm Anatomy ----- --------- The following structures appear normal: Head/Neck: Cranium. Lateral ventricles. Cavum septi pellucidi. Cerebellum.Cisterna magna. Parenchyma. Face: Lips. Profile. Nose. Nasal bone. Maxilla. Mandible. Orbits. Heart/Thorax: 4-chamber view. RVOT view. LVOT view. 3-vessel view.0-lwaczo-jmhmbgu view. Situs. Aortic arch view. Bicaval view. Ductal arch view. Interventricular septum. Greatvessels. Cardiac position. Cardiac axis. Cardiac size. Cardiac rhythm. Right lung. Left lung. Diaphragm. Abdomen: Stomach. Kidneys. Bladder. Small bowel. Large bowel. Spine: Cervical spine. Thoracic spine. Lumbar spine. Sacral spine. Extremities/Skeleton: Left hand. Skeleton The following structures were documented previously: Head / Neck Choroid plexus. Midline falx. Vermis. Neck. Abdomen Abdom. wall. Cord insertion. Right renal artery. Left renalartery. Genitals. Extremities / Right upper arm. Right forearm. Right hand. Left upper arm.Left forearm. Right upper leg. Right lower leg. Right foot. Left upper leg. Left lower leg. Left foot. Maternal Structures ----- --------- Uterus Visualized Cervix Suboptimal Approach - Transabdominal Right Ovary Not visualized Left Ovary Not visualized Cul de Sac Suboptimal Impression ----- --------- Single viable intrauterine with macrosomic growth. EFWmeasures at the 95%, AC measures at the 95%. anatomic survey did not reveal sonographic evidence of any grossstructural abnormalities. Amniotic fluid MVP measures 6.2 cm. Recommendations ----- --------- Macrosomic growth pattern on ultrasound today, please correlate withclinical findings and diabetes screen. Subsequent follow up or other follow up as clinically determined byprimary OB provider unless otherwise specified by M. Results forwarded to ordering provider so they can follow up with thepatient as necessary. us Cintia Banegas MD [facility] ORDERABLES Final Resul t * Chlamydia/GC by PCR Elisabeth Swab (11/09/2022) Chlamydia Dna(Pcr) negative MANUALLY TRANSCRIBED RESULTS Gonorrhoeae Dna(Pcr) negative MANUALLY TRANSCRIBED RESULTS us Not In System Ref Prov MICROBIOLOGY - GENERAL OR DERABLES Final Result MANUALLY TRANSCRIBED RESULTS from Last 3 Months or Most Recently Relevant to Health Maintenance Insurance [employer]
--- OUTSIDE RECORDS SUMMARY | 2024-11-16 09:05 | XMS_ITS | Encounter Summary ---
Author Organization [facility] Address [address] [place] [address] Care Team Providers Care Brake Repairer Name Role Phone Taisha Ortiz MD Primary Care Provider [phone] Stephanie Sotelo REHEATER Unavailable [phone] Encounter Details Date Type Department Care Team (Late Contact Info) Description 12/08/2022 Abstract [facility] J[facility]IER [address] [place] [phone] Kathie Lee PA [address] [place] [address] [place], [place] [id number] Social History Tobacco Use Types Packs/Day Years Used Date Smoking Tobacco: Never Smokeless Tobacco: Never Alcohol Use Standard Drinks/Week Comments Never 0 (1 standard drink = 0.6 oz pur e alcohol) Comments Yes Sex and Gender Information Value Date Recorded Sex Assigned at Female 10/07/2022 12:02 PM EDT Legal Sex Female 11:00 PM EDT Gender Identity Female 10/07/2022 12:02 PM EDT Sexual Orientation Straight 10/07/2022 12 :02 PM EDT documented as of this encounter Plan of Treatment Upcoming Encounters Date Type Department Care Team (Late Contact Info) Description 11/28/2024 8:30 AM EDT Routine CONY JAVIER [address] [place] [phone] Don Hidalgo DO [address] [place] [address] documented as of this encounter Visit Diagnoses Not on filedocumented in this encounter Care Teams Brake Repairer Relationship Specialty Start Date End Date Taisha Ortiz MD [address] [place], [place] [id number] PCP - General Family Medicine 05/03/23 Stephanie Sotelo NP [address] [place] [address] PCP - Carloz Eduardo 07/16/24 documented as of this encounter
--- OUTSIDE RECORDS SUMMARY | 2024-11-16 09:05 | XMS_ITS | Encounter Summary ---
Author Organization [facility] Address [address] [place] [address] Care Team Providers Care Preparation Supervisor Name Role Phone Taisha Ortiz MD Primary Care Provider [phone] Stephanie Sotelo PIECE WORK INSPECTOR Unavailable [phone] Encounter Details Date Type Department Care Team (Late st Contact Info) Description 12/30/2022 Clinisync Result Encounter [facility] External Department Unsolicited Kathie Roman PA [address] [facility] [place] [address] Social History Tobacco Use Types Packs/Day Years [...] 11/28/2024 8:30 AM EDT Routine [facility] [address] [place] [id number] Don Hidalgo DO [address] [facility] [place] [address] documented as of this encounter Procedures Procedure Name Priority Date/Time Associated Diagnosis Comments US OB ANATOMY 12/30/2022 5:41 PM EDT documented in this encounter Results * US OB ANATOMY (12/30/2022 5:41 PM EDT) Anatomical Region Laterality Modality Other 12/30/2022 5:41 PM EDT Narrative 12/30/2022 5:41 [place] [address] Ultrasound Report Signed Patient: HESHAM TAYLOR MR#: [id number] : 2000 Acct:[id number] Age/Sex: 22 / F ADM Date: 12/30/22 Loc: US Attending Dr: Kathie Roman Ordering Physician: Kathie Roman Date of Service: 12/30/22 Procedure(s): US OB anatomy Accession Number(s): [id number] cc: Kathie Roman; Physician,Non-Staff M.D. [place] [id number] Patient Name: HESHAM TAYLOR MRN: [id number] date: 2000 Sex: F Assigned Patient Location: Current Patient Location: Accession/Order Number: [id number] Exam Date: 12/30/2022 07:55 Report Date: 12/30/2022 17:41 At the request of: KATHIE ROMAN Procedure: US OB anatomy EXAMINATION: US OB anatomy, US OB transvaginal HISTORY: Second Trimester Z34.92 COMPARISON: No relevant comparison available. TECHNIQUE: Transabdominal sonographic examination was performed for obstetrical and evaluation. FINDINGS: Number: 1 Heart Rate: 158.8 bpm H.B. /min Amniotic Fluid Volume: Subjectively normal position: Cephalic presentation, longitudinal lie Placental Location: POSTERIOR , grade 0. The placenta covers the internal os Cervix Length: 4.8 cm , closed Normal anatomy: Lateral ventricles, cerebellum, posterior fossa, orbits, four-chamber heart, RVOT, diaphragm, stomach, kidneys, abdominal cord insertion, bladder, umbilical arteries, three-vessel cord, spine, extremities Nonvisualization: Nose, lips, LVOT BIOMETRY: BPD: 4.4 cm 19 weeks 3 days , less than 3% HC: 18.1 cm 20 weeks 4 days, 7% AC: 17.4 cm 22 weeks 3 days, 69% FL: 3.6 cm 21 weeks 2 days, 30% EFW:438.5 grams; 15 ounces, 47% FL/AC: 20.4 FL/BPD: 80.4 HC/AC: 1.0 GESTATIONAL AGE: Age by EDC: 21 weeks 4 days RAY by EDC: 05/08/2023 Age by current US: 21 weeks 0 days RAY by current US: 05/12/2023 US/US OB anatomy IMPRESSION: Complete placenta previa Nonvisualization of the nose, lips, LVOT BPD less than 3rd percentile *Reference: [facility] Practice Guideline for the performance of Obstetric Ultrasound Examinations, January 15, 2007. Electronically authenticated by: STU DE SOUZA Date: 12/30/2022 17:41 Dictated By: Stu De Souza M.D. Signed By: 12/30/221743 DD/ 40 TD/TT: Fringing Machine Operator: Procedure Note Radiology, Radiologist, MD - 01/06/2023 [facility] [place] [id number] Ultrasound Report Signed Patient: HESHAM TAYLOR AMR#: [id number] : 2000Acct:[id number] Age/Sex: 22 / FADM Date: 12/30/22 Loc: US Attending Dr: Kathie Roman Ordering Physician: Kathie Roman Date of Service: 12/30/22 Procedure(s): US OB anatomy Accession Number(s): [id number] cc: Kathie Roman; Physician,Non-Staff Ann-Marie The [address] [address] Patient Name: HESHAM TAYLOR MRN: [id number] date: 2000 Sex: F Assigned Patient Location: US Current Patient Location: US Accession/Order Number: [id number] Exam Date: 12/30/2022 07:55 Report Date: 12/30/2022 17:41 At the request of: KATHIE ROMAN Procedure: US OB anatomy EXAMINATION: US OB anatomy, US OB transvaginal HISTORY: Second Trimester Z34.92 COMPARISON: No relevant comparison available. TECHNIQUE: Transabdominal sonographic examination was performed for obstetrical and evaluation. FINDINGS: Number: 1 Heart Rate: 158.8 bpm H.B. /min Amniotic Fluid Volume: Subjectively normal position: Cephalic presentation, longitudinal lie Placental Location: POSTERIOR , grade 0. The placenta covers the internalos Cervix Length: 4.8 cm , closed Normal anatomy: Lateral ventricles, cerebellum, posterior fossa, orbits, four-chamber heart, RVOT, diaphragm, stomach, kidneys, abdominal cord insertion, bladder, umbilical arteries, three-vessel cord, spine,extremities Nonvisualization: Nose, lips, LVOT BIOMETRY: BPD: 4.4 cm 19 weeks 3 days , less than 3% HC: 18.1 cm 20 weeks 4 days, 7% AC: 17.4 cm 22 weeks 3 days, 69% FL: 3.6 cm 21 weeks 2 days, 30% EFW:438.5 grams; 15 ounces, 47% FL/AC: 20.4 FL/BPD: 80.4 HC/AC: 1.0 GESTATIONAL AGE: Age by EDC: 21 weeks 4 days RAY by EDC: 05/08/2023 Age by current US: 21 weeks 0 days RAY by current US: 05/12/2023 US/US OB anatomy IMPRESSION: Complete placenta previa Nonvisualization of the nose, lips, LVOT BPD less than 3rd percentile *Reference: [facility] Practice Guideline for the performance of Obstetric Ultrasound Examinations, January 15, 2007. Electronically authenticated by: STU DE SOUZA Date: 12/30/2022 17:41 Dictated By: Stu De Souza M.D. Signed By:12/30/221743 DD/ 40 TD/TT: Fringing Machine Operator: us Kathie [facility] Final Result documented in this encounter Visit Diagnoses Not on filedocumented in this encounter Care Teams Preparation Supervisor Relationship Specialty Start Date End Date Taisha Ortiz MD [address] [place] [address] PCP - General Family Medicine 05/03/23 Stephanie Sotelo NP [address] [place] [address] PCP - [employer] 07/16/24 documented as of this encounter
--- OUTSIDE RECORDS SUMMARY | 2024-11-16 09:05 | XMS_ITS | Clinical Summary ---
Author Organization [facility] Address [address] [facility] [place] [address] Care Team Providers Care Foil Wrapper Name Role Phone Taisha Ortiz MD Primary Care Provider [phone] Stephanie Sotelo HEEL SHAPER Unavailable [phone] Allergies No known active allergies Medications Uphczskv-Vva-Sd- FA (PRE- PO) Take 1 each by mouth Daily Active Ferrous Gluconate (IRON 27 PO) Take 1 each by mouth Daily Active Active Problems Estimated Date of Delivery Comme nts Yes 02/10/2025 Based on last me nstrual period of 05/06/2024 No known active problems Resolved Problems Problem Noted Date Diagnosed Date Resolved Date Obesity affecting in second trimester ([facility]) 01/27/2023 04/25/2023 Velamentous insertion of umb ilical cord in second trimester ([facility]) 01/27/2023 04/25/2023 Encounters Date Type Department Care Team Description 11/14/2024 11:20 AM EDT Routine [facility] [address] [place] [address] Kathie Lee PA Second trimester ([facility]); 27 weeks gestation of ([facility]) 11/14/2024 Bamboo flowsheet [facility] [address] [place] [address] Kathie Lee PA 11/09/2024 Travel 10/28/2024 Abstract [facility] [address] [place] [address] Rebeca Hidalgo, 10/17/2024 8:10 AM EDT Routine [facility] [address] [place] [address] Rebeca Hidalgo, Second trimester ([facility]); 23 weeks gestation of ([facility]); Diabetes mellitus screening 10/17/2024 Bamboo flowsheet [facility] [address] [place] [address] Rebeca Hidalgo, 09/24/2024 Abstract [facility] [address] [place] [address] Mitali Madden MA 09/23/2024 External Result Encounter [facility] [place] [address] Rebeca Hidalgo, 09/18/2024 Clinisync Result Encounter [facility] External Department Unsolicited Rebeca Hidalgo, 09/17/2024 1:30 PM EDT Routine [facility] [address] [place] [address] Kathie Lee PA Second trimester ([facility]); 19 weeks gestation of ([facility]); Screening, , for anatomic survey ([facility]) 09/17/2024 Bamboo flowsheet [facility] [address] [place] [address] Kathie Lee PA 08/20/2024 10:20 AM EDT Routine [facility] [place] [facility] [place] [address] Rebeca Hidalgo, Second trimester ([facility]); 15 weeks gestation of ([facility]); Diabetes mellitus screening 08/20/2024 Bamboo flowsheet [facility] [address] [place] [address] Rebeca Hidalgo DO from Last 3 Months Immunizations Immunization Administration Dates Next Due DTP 12/19/2020 DTaP 12/08/2004 DTaP, Unspecified 03/23/2001,01/12/2001,10/24/19 Hep B, Adolescent or Pediatric 10/29/2019,2018,2000 Hep B, adult 05/14/2019 Hib (HbOC) 01/12/2001 Hib / Hep B 03/23/2001,2000 IPV 12/08/2004, 1,01/12/2001,10/23 Influenza, recombinant, quad rivalent, injectable, preservative free 02/01/2021 MMR 12/08/2004,09/28/2001 MMRV 04/11/2019 Meningococcal MCV4O 11/09/2017 Family History Medical History Relation Name Comments Cancer Maternal Grandfather Fior Heart failure Maternal Grandfather Fior Diabetes Maternal Grandmother Fior Hypertension Maternal Grandmother Fior Cancer Paternal Grandfather Rajat Seizures Sister 4 Nicole Relation Name Status Comments Father Alive Maternal Grandfather Fior Maternal Grandmother Fior Alive Mother Alive Paternal Grandfather Rajat Paternal Grandmother Alive Sister 1 Alive Sister 2 Alive Sister 3 Alive Sister 4 Nicole Son Alive Social History Tobacco Use Types Packs/Day Years Used Date Smoking Tobacco: Never Smokeless Tobacco: Never Tobacco Cessation:Counseling Given: [...] How often do you attend chur or sikh services? 1 to 4 times per year 05/17/2023 Do you belong to any clubs o r organizations such as jewish groups, unions, fraternal or athletic groups, or [...] Recorded Patient Health Questionnaire-2 Score 0 05/24/2023 [facility] - Occupational Stress [...] place to sleep or slept in a fdc (including now)? No 05/17/2023 Estimated Date of Delivery Comme nts Yes 02/10/2025 Based on last me nstrual period of 05/06/2024 Sex and Gender Information Value Date Recorded Sex Assigned at Female 10/07/2022 12:02 PM EDT Legal Sex Female 11:00 PM EDT Gender Identity Female 10/07/2022 12:02 PM EDT Sexual Orientation Straight 10/07/2022 12 :02 PM EDT Last Filed Vital Signs Vital Sign Reading Time Taken Comments Blood Pressure 122/64 11/14/2024 11:22 AM EDT Pulse 63 05/24/2023 2:05 PM EST Temperature - - Respiratory Rate 20 05/24/2023 2:05 PM EST Oxygen Saturation 96% 05/24/2023 2:05 PM EST Inhaled Oxygen Concentration - - Weight 103 kg (226 lb 8 oz) 11/14/2024 11:22 AM EDT Height 162.6 cm (5' 4 ) 11/21/2023 2:10 PM EDT Body Mass Index 38.88 11/21/2023 2:10 PM EDT Plan of Treatment Upcoming Encounters Date Type Department Care Team (Late st Contact Info) Description 11/28/2024 8:30 AM EDT Routine [facility] [address] [place] [address] Rebeca Hidalgo DO [address] [facility] [place] [address] Health Maintenance Due Date Last Done Comments Influenza Vaccine (#1) 2024 02/01/2021 Procedures Procedure Name Priority Date/Time Associated Diagnosis Comments POCT URINALYSIS DIPSTICK Routine 11/14/2024 11:35 AM EDT Second trimester ([facility]) POCT URINALYSIS DIPSTICK Routine 10/17/2024 9:01 AM EDT Second trimester ([facility]) US OB 14+ WEEKS ANATOMY SCAN 09/23/2024 1:55 PM EDT GLUCOSE 1 HOUR Routine 09/18/2024 8:37 AM EDT POCT URINALYSIS DIPSTICK Routine 09/17/2024 2:08 PM EDT Second trimester ([facility]) 19 weeks gestation of ([facility]) POCT URINALYSIS DIPSTICK Routine 08/20/2024 12:03 PM EDT Second trimester ([facility]) from Last 3 Months Results * (ABNORMAL) POCT urinalysis dipstick manually resulted (11/14/2024 11:35 AM EDT) Only the most recent of4 resultswithin the time period is included. Color, UA Yellow Clarity, UA Clear Glucose, [...] Positive Urine 11/14/2024 11:3 5 AM EDT us Kathie COCHRAN POINT OF CARE TEST ENTER/EDIT OR DERABLES Final Result * US OB 14+ weeks anatomy scan (09/23/2024 1:55 PM EDT) Anatomical Region Laterality Modality Body Ultrasound 09/23/2024 1:55 PM EDT Narrative 09/23/2024 1:55 PM EDT THIS EXAM WAS PERFORMED AT [facility] NAME: CLAUDIA DAHL : 2000 SEX: F Accession Number: [id number] ORDERING PHYSICIAN: CINTIA BANEGAS REFERRING PHYSICIAN: REBECA HIDALGO Coding ----- --------- Procedures 54423: Ultrasound, uterus, real time with image documentation, and maternal evaluation plus detailed anatomic examination, transabdominal approach;single or first gestation 21868: Transvaginal Ultrasound (OB) Indication ----- --------- Screening [...] EFW (oz) 13 oz EFW by: Hadlock ([id number]) Extended Tibia 28.7 mm 20w 3d 71% Heri Jewelry Salesperson 8.2 mm CM 5.6 mm 70% Nicolaides [...] Nose. Maxilla. Mandible. Orbits. Heart / Thorax 4-ogeaaw-xqdihch view. Aortic arch view. Interventricular septum. Great [...] 3.91 cm. Recommendations ----- --------- Please see [facility] documentation from today. Follow-up in 4-6 weeks is scheduled for completion of the anatomic survey Subsequent follow up or other follow up as clinically determined by primary OB provider unless otherwise specified by [facility]. Results forwarded to ordering provider so they can follow up with the patient as necessary. The copy-to physician of this order is REBECA King The ordering physician of this order is CINTIA Hartmann Procedure Note Radiology, Radiologist, MD - 09/23/2024 THIS EXAM WAS PERFORMED AT [facility] NAME: CLAUDIA DAHL : 2000 SEX: F Accession Number: [id number] ORDERING PHYSICIAN: CINTIA BANEGAS REFERRING PHYSICIAN: REBECA HIDALGO Coding ----- --------- Procedures 67503: Ultrasound, uterus, real time with imagedocumentation, and maternal evaluation plus detailed anatomic examination, transabdominalapproach;single or first gestation 43018: Transvaginal Ultrasound (OB) Indication ----- --------- Screening [...] EFW (oz) 13 oz EFW by: Hadlock ([id number]) Extended Tibia 28.7 mm 20w 3d 71% Heri Jewelry Salesperson 8.2 mm CM 5.6 mm 70% Nicolaides [...] Nose. Maxilla. Mandible. Orbits. Heart / Thorax 2-ngfpjt-nczcmcs view. Aortic arch view. Interventricularseptum. Great vessels. [...] 3.91 cm. Recommendations ----- --------- Please see [facility] documentation from today. Follow-up in 4-6 weeks isscheduled for completion of the anatomic survey Subsequent follow up or other follow up as clinically determined byprimary OB provider unless otherwise specified by [facility]. Results forwarded to ordering provider so they can follow up with thepatient as necessary. The copy-to physician of this order is REBECA King The ordering physician of this order is CINTIA Hartmann us Rebeca Hidalgo DO IMG OB US PROCEDURES Final Resul t * GLUCOSE 1 HOUR (09/18/2024 8:37 AM EDT) GLUCOSE 1 HOUR 104 <130 mg/dL [facility] 09/18/2024 8:37 AM EDT 09/18/2024 8:37 AM EDT Narrative [facility] - 09/18/2024 8:56 AM EDT us Rebeca Hidalgo DO LAB BLOOD ORDERABLES Final Resul t [facility] from Last 3 Months Insurance [facility] Care Teams Foil Wrapper Relationship Specialty Start Date End Date Taisha Ortiz MD [address] [place], [place] [id number] PCP - General Family Medicine 05/03/23 Stephanie Sotelo NP [address] [place] [address] PCP - Carloz [facility] 07/16/24
--- OUTSIDE RECORDS SUMMARY | 2024-11-16 09:05 | XMS_ITS | Encounter Summary ---
Author Organization [facility] Address [address] [place] [address] Care Team Providers Care Venetian Blind Cleaner And Repairer Name Role Phone Taisha Ortiz MD Primary Care Provider [phone] Stephanie Sotelo HOSPICE CARE TRANSITIONS COORDINATOR Unavailable [phone] Encounter Details Date Type Department Care Team (Late st Contact Info) Description 12/30/2022 Clinisync Result Encounter [facility] External Department Unsolicited Kathie Roman PA [address] [place] [address] Social History Tobacco Use Types Packs/Day Years [...] AM EDT Routine [facility] [address] [place] [id number] Don Hidalgo DO [address] [place] [address] documented as of this encounter Procedures Procedure Name Priority Date/Time Associated Diagnosis Comments US OB TRANSVAGINAL 12/30/2022 5: 41 PM EDT documented in this encounter Results * US OB TRANSVAGINAL (12/30/2022 5:41 PM EDT) Anatomical Region Laterality Modality Other 12/30/2022 5:41 PM EDT Narrative 12/30/2022 5:41 [place] [address] Ultrasound Report Signed Patient: HESHAM TAYLOR MR#: [id number] : 2000 Acct:[id number] Age/Sex: 22 / F ADM Date: 12/30/22 Loc: US Attending Dr: Kathie Roman Ordering Physician: Kathie Roman Date of Service: 12/30/22 Procedure(s): US OB transvaginal Accession Number(s): [id number] cc: Kathie Roman; Physician,Non-Staff M.D. [place] [id number] Patient Name: HESHAM TAYLOR MRN: [id number] date: 2000 Sex: F Assigned Patient Location: US Current Patient Location: US Accession/Order Number: [id number] Exam Date: 12/30/2022 07:55 Report Date: 12/30/2022 17:41 At the request of: KATHIE ROMAN Procedure: US OB transvaginal EXAMINATION: US OB anatomy, US OB transvaginal [...] RAY by current US: 05/12/2023 US/US OB transvaginal IMPRESSION: Complete placenta previa Nonvisualization of the nose, lips, LVOT BPD less than 3rd percentile *Reference: [facility] Practice Guideline for the performance of Obstetric Ultrasound Examinations, January 15, 2007. Electronically authenticated by: STU DE SOUZA Date: 12/30/2022 17:41 Dictated By: Stu De Souza M.D. Signed By: 12/30/221743 DD/ 40 TD/TT: Fixing Machine Operator: Procedure Note Radiology, Radiologist, MD - 01/06/2023 [place] [address] Ultrasound Report Signed Patient: HESHAM TAYLOR AMR#: [id number] : 2000Acct:[id number] Age/Sex: 22 / FADM Date: 12/30/22 Loc: US Attending Dr: Kathie Roman Ordering Physician: Kathie Roman Date of Service: 12/30/22 Procedure(s): US OB transvaginal Accession Number(s): [id number] cc: Kathie Roman; Physician,Non-Staff Ann-Marie The [address] [address] Patient Name: HESHAM TAYLOR MRN: [id number] date: 2000 Sex: F Assigned Patient Location: US Current Patient Location: US Accession/Order Number: [id number] Exam Date: 12/30/2022 07:55 Report Date: 12/30/2022 17:41 At the request of: KATHIE ROMAN Procedure: US OB transvaginal EXAMINATION: US OB anatomy, US OB transvaginal [...] RAY by current US: 05/12/2023 US/US OB transvaginal IMPRESSION: Complete placenta previa Nonvisualization of the nose, lips, LVOT BPD less than 3rd percentile *Reference: [facility] Practice Guideline for the performance of Obstetric Ultrasound Examinations, January 15, 2007. Electronically authenticated by: STU DE SOUZA Date: 12/30/2022 17:41 Dictated By: Stu De Souza M.D. Signed By:12/30/221743 DD/ 40 TD/TT: Fixing Machine Operator: us Kathie [facility] Final Result documented in this encounter Visit Diagnoses Not on filedocumented in this encounter Care Teams Venetian Blind Cleaner And Repairer Relationship Specialty Start Date End Date Taisha Ortiz MD [address] [facility] [address] [place], [place] [id number] PCP - General Family Medicine 05/03/23 Stephanie Sotelo NP [address] [facility] [place], [place] [id number] PCP - [place] Jayce 07/16/24 documented as of this encounter
[2024-11-16 10:09] LABS: Hematocrit 32.3 % (36.0-48.0); Hemoglobin 10.6 g/dL (12.0-16.0); Immature Granulocytes Abs Auto 0.04 10^3/uL (0.00-0.03); Immature Granulocytes Pct Auto 0.4 % (0.0-0.5); Lymphocytes Absolute Auto 1.5 10^3/uL (1.2-3.8); Mean Corpuscular HGB Conc 32.8 g/dL (29.9-35.2); Mean Corpuscular Hemoglobin 30.9 pg (26.7-34.0); Mean Corpuscular Volume 94.2 fL (81.0-99.0); Platelet Count 183 10^3/uL (150-450); Red Blood Count 3.43 10^6/uL (4.20-5.40); White Blood Count 9.0 10^3/uL (4.0-11.0)
[2024-11-16 10:44] LABS: Glucose 1 Hour 120 mg/dL (<130)
== END 2024-11-16 08:59 | disposition home or self-care (01) ==
PROVIDERS: PCP Family Medicine; Visit Provider Obstetrics & Gynecology
DX: Z13.1 Encounter for screening for diabetes mellitus (principal)
CPT/HCPCS: 36415; 82950; 85025

== ENCOUNTER 2024-12-14 09:47 | Outpatient (OUT) | payer BC, SELFPAY ==
--- OUTSIDE RECORDS SUMMARY | 2024-11-28 08:30 | XMS_ITS | Encounter Summary ---
Author Organization [facility] Address [address] [place] [address] Care Team Providers Care Payroll Master Name Role Phone Taisha Ortiz MD Primary Care Provider [phone] Stephanie Sotelo SENIOR ADMINISTRATOR SUPPORT Unavailable [phone] Reason for Visit * Reason Comments Routine Visit Encounter Details Date Type Department Care Team (Late Contact Info) Description 11/28/2024 8:30 AM EDT Routine [facility] [address] [place] [id number] Don Hidalgo DO [address] [place], [place] [address] Third trimester ([facility]); 29 weeks gestation of ([facility]); History of placental abnormality; Excessive growth affecting management of in third trimester, single or unspecified fetus ([facility]) Social History Tobacco Use Types Packs/Day Years [...] often do you attend chur ch or congregation services? 1 to 4 times per year 05/17/2023 Do you belong to any clubs o r organizations such as taoist groups, unions, fraternal or athletic groups, or [...] Recorded Patient Health Questionnaire-2 Score 0 05/24/2023 [facility] [place] of Occupat ional Health - Occupational Stress [...] place to sleep or slept in a snf (including now)? No 05/17/2023 Estimated Date of [...] Sign Reading Time Taken Comments Blood Pressure 118/74 11/28/2024 8:48 AM EDT Pulse - - Temperature - - Respiratory Rate - - Oxygen Saturation - - Inhaled Oxygen Concentration - - Weight 102 kg (225 lb) 11/28/2024 8:48 AM EDT Height - - Body Mass Index 38.62 11/21/2023 2:10 PM EDT documented in this encounter Progress Notes * Franci Boyd LPN - 11/28/2024 8:30 AM EDT Reason for Appointment: Patient ID: Shelby Avalos is a 24 y.o. female who presents for Routine Visit Patient presents today for Return OB appointment. MEDICATIONS Current Outpatient Medications Medication Instructions Ferrous Gluconate (IRON 27 PO) 1 each, Daily Ylzolptw-Tgw-Pt-FA (PRE-SIGIFREDO PO) 1 each, Daily ALLERGIES No Known Allergies PROBLEMS Active Ambulatory Problems Diagnosis Date Noted No Active Ambulatory Problems Resolved Ambulatory Problems Diagnosis Date Noted Obesity affecting in second trimester ([facility]) 01/27/2023 Velamentous insertion of umbilical cord in second trimester ([facility]) 01/27/2023 Past Medical History: Diagnosis Date 6 weeks follow-up ([facility]) HISTORY PAST MEDICAL HISTORY SOCIAL HISTORY Past Medical History: Diagnosis Date 6 weeks follow-up ([facility]) Social History Tobacco Use Smoking status: Never [...] nursing note reviewed. Exam conducted with a microwave oven assembler present. Vitals: Estimated body mass index is 38.62 kg/m?? as calculated from the following: Height as of 11/21/23: 5' 4 . Weight as of this encounter: 225 lb. BP: 118/74 Patient's last menstrual period was 05/06/2024. ASSESSMENT & PLAN ICD-10-CM 1. Third trimester ([facility]) Z34.93 POCT urinalysis dipstick manually resulted 2. 29 weeks gestation of ([facility]) Z3A.29 Patient presents today for a routine obstetrics appointment. Patient is currently 29w3d with a Estimated Date of Delivery: 02/10/25. Discussed iron levels and patient voiced that she has supplements at home, but not very well at remembering to take them. Patient to start growth scan every 4 weeks. Patient to return to clinic in 2 weeks for routine OB appointment. Documented by Franci Boyd LPN on behalf of: Don Hidalgo DO documented in this encounter Plan of Treatment Upcoming Encounters Date Type Department Care Team (Late st Contact Info) Description 12/24/2024 10:00 AM EDT Routine [facility] [address] [place] [address] Don Hidalgo DO [address] [place] [address] Scheduled Orders Name Type Priority Associated Diagnoses Orde r Schedule US OB follow up transabdominal approach Imaging Routine Third trimester ([facility]) History of placental abnormality Excessive growth affecting management of in third trimester, single or unspecified fetus ([facility]) Expected: 11/28/2024, Expires: 03/30/2025 documented as of this encounter Procedures Procedure Name Priority Date/Time Associated Diagnosis Comments POCT URINALYSIS DIPSTICK Routine 11/28/2024 8:48 AM EDT Third trimester ([facility]) documented in this encounter Results * (ABNORMAL) POCT urinalysis dipstick manually resulted (11/28/2024 8:48 AM EDT) Color, UA Yellow Clarity, UA Clear Glucose, UA Negative Negative - 2000(110) ++++ mg/dL Bilirubin, UA 1+ Negative - 4(70) +++ mg/dL Ketones, UA Negative Negative - 160(16) ++++ mg/dL Spec Grav, UA 1.015 1 - 1.03 Blood, UA Negative Negative - 50 Uelogio/mcL pH, UA 6.0 5 - 9 Protein, UA 1+ Negative - 2000(20) ++++ mg/dL Urobilinogen, UA 1.0 0.2 - 12 mg/dL Leukocytes, UA 1+ Negative - 500+++ Rufina/mcL Nitrite, UA Negative Negative - Positive Urine 11/28/2024 8:48 AM EDT Don Hidalgo DO POINT OF CARE TEST ENTER/EDIT OR DERABLES Final Result documented in this encounter Visit Diagnoses Diagnosis Third trimester ([facility]) state, incidental 29 weeks gestation of ([facility]) History of placental abnormality Excessive growth affecting management of in third trimester, single or unspecified fetus ([facility]) documented in this encounter Care Teams Payroll Master Relationship Specialty Start Date End Date Taisha Ortiz MD [address] [place] [address] PCP - General Family Medicine 05/03/23 Stephanie Sotelo NP [address] [place] [address] PCP - Carloz Eduardo 07/16/24 documented as of this encounter
--- OUTSIDE RECORDS SUMMARY | 2024-12-12 10:10 | XMS_ITS | Encounter Summary ---
Author Organization [facility] Address [address] [place] [address] Care Team Providers Care Agricultural Equipment Test Engineer Name Role Phone Taisha Ortiz MD Primary Care Provider [phone] Stephanie Sotelo ASPHALT PLANT OPERATOR Unavailable [phone] Reason for Visit * Reason Comments Routine Visit Encounter Details Date Type Department Care Team (Late Contact Info) Description 12/12/2024 10:10 AM EDT Routine [facility] [address] [place] [address] Kathie Lee PA [address] [place], [place] [phone] Third trimester ([facility]); 31 weeks gestation of ([facility]) Social History Tobacco Use Types Packs/Day Years [...] any clubs o r organizations such as mormonism groups, unions, fraternal or athletic groups, or [...] Recorded Patient Health Questionnaire-2 Score 0 05/24/2023 [facility] of Occupat ional Health - [...] Sign Reading Time Taken Comments Blood Pressure 130/70 12/12/2024 10:28 AM EDT Pulse - - Temperature - - Respiratory Rate - - Oxygen Saturation - - Inhaled Oxygen Concentration - - Weight 103 kg (227 lb) 12/12/2024 10:28 AM EDT Height - - Body Mass Index 38.96 11/21/2023 2:10 PM EDT documented in this encounter Progress Notes * DIMAS Cormier - 12/12/2024 10:10 AM EDT Reason for Appointment: Patient ID: Shelby Avalos is a 24 y.o. female who presents for Routine Visit Patient presents today for Return OB appointment. MEDICATIONS Current Outpatient Medications Medication Instructions Ferrous Gluconate (IRON 27 PO) 1 each, Daily Qdhuksnj-Ydb-Ok-FA (PRE- PO) 1 each, Daily ALLERGIES No Known Allergies PROBLEMS Active Ambulatory Problems Diagnosis Date Noted No Active Ambulatory Problems Resolved Ambulatory Problems Diagnosis Date Noted Obesity affecting in second trimester ([facility]) 01/27/2023 Velamentous insertion of umbilical cord in second trimester ([facility]) 01/27/2023 Past Medical History: Diagnosis Date 6 weeks follow-up ([facility]) HISTORY PAST MEDICAL HISTORY SOCIAL HISTORY Past Medical History: Diagnosis Date 6 weeks follow-up ([facility]) Social History Tobacco Use Smoking [...] reviewed. Vitals: Estimated body mass index is 38.96 kg/m?? as calculated from the following: Height as of 11/21/23: 5' 4 . Weight as of this encounter: 227 lb. BP: 130/70 Patient's last menstrual period was 05/06/2024. ASSESSMENT & PLAN ICD-10-CM 1. Third trimester ([facility]) Z34.93 POCT urinalysis dipstick manually resulted 2. 31 weeks gestation of ([facility]) Z3A.31 Return OB: Patient presents today for a routine obstetrics appointment. Patient is currently 31w3d . Patient states she is doing well [...] Routine [facility] [address] [place] [address] Don Hidalgo DO [address] [place] [address] documented as of this encounter Procedures Procedure Name Priority Date/Time Associated Diagnosis Comments POCT URINALYSIS DIPSTICK Routine 12/12/2024 11:01 AM EDT Third trimester ([facility]) documented in this encounter Results * (ABNORMAL) POCT urinalysis dipstick manually resulted (12/12/2024 11:01 AM EDT) Color, UA Hattie Clarity, UA Clear Glucose, UA Negative Negative - 2000(110) ++++ mg/dL Bilirubin, UA Negative Negative - 4(70) +++ mg/dL Ketones, UA Negative Negative - 160(16) ++++ mg/dL Spec Grav, UA 1.020 1 - 1.03 Blood, UA Negative Negative - 50 Eulogio/mcL pH, UA 6.0 5 - 9 Protein, UA Positive Negative - 2000(20) ++++ mg/dL Comment:1+ Urobilinogen, UA 0.2 0.2 - 12 mg/dL Leukocytes, UA Positive Negative - 500+++ Rufina/mcL Comment:Trace Nitrite, UA Negative Negative - Positive Urine 12/12/2024 11:0 1 AM EDT Kathie COCHRAN POINT OF CARE TEST ENTER/EDIT OR DERABLES Final Result documented in this encounter Visit Diagnoses Diagnosis Third trimester ([facility]) state, incidental 31 weeks gestation of ([facility]) documented in this encounter Care Teams Agricultural Equipment Test Engineer Relationship Specialty Start Date End Date Taisha Ortiz MD [address] [place] [address] PCP - General Family Medicine 05/03/23 Stephanie Sotelo NP [address] [place] [address] PCP - Carloz Eduardo 07/16/24 documented as of this encounter
--- NOTE | 2024-12-14 | US_ITS ---
The [address] [address] Patient Name: HESHAM TAYLOR MRN: [id number] date: 2000 Sex: F Assigned Patient Location: Current Patient Location: Accession/Order Number: [id number] Exam Date: 12/14/2024 09:50 Report Date: 12/14/2024 11:17 At the request of: REBECA PACE DO Procedure: US OB growth US OB growth 12/14/2024 10:10 AM SIGNS AND SYMPTOMS: ^EXCESSIVE GROWTH O36.63X0 COMPARISON: None. TECHNIQUE: Limited pelvic ultrasound using transvesical sonography. FINDINGS: An intrauterine is identified. The fetus has an estimated gestational age of 35 weeks and 2 days by measurements which is advanced compared to the estimated gestational age of 31 weeks and 5 days based on dates. A heart rate is identified at 147 bpm. A normal amount of amniotic fluid is present. There is no evidence for placenta previa or subchorionic hemorrhage. Pelvic survey reveals no gross abnormalities. US/US OB growth IMPRESSION: Single live IUP. The fetus has an estimated gestational age of 35 weeks and 2 days by measurements which is advanced compared to the estimated gestational age of 31 weeks and 5 days based on dates. Impression dictated by: Wilfrido Atkinson M.D. 12/14/2024 11:17 AM Dictation Location: [email or web address] Electronically authenticated by: [id number] Y Date: 12/14/2024 11:17
--- OUTSIDE RECORDS SUMMARY | 2024-12-14 09:49 | XMS_ITS | Encounter Summary ---
Author Organization [facility] Address [address] [place] [address] Care Team Providers Care Breast Surgeon Name Role Phone Taisha Ortiz MD Primary Care Provider [phone] Stephanie Sotelo MANAGER ETHICS Unavailable [phone] Encounter Details Date Type Department Care Team (Late st Contact Info) Description 12/12/2024 Bamboo flowsheet [facility] [address] [address] Kathie Lee PA [address] [address] Social History Tobacco Use Types Packs/Day Years [...] you attend chur ch or baptist services? 1 to 4 times per year 05/17/2023 Do you belong to any clubs o r organizations such as gnosticism groups, unions, fraternal or athletic groups, or [...] Recorded Patient Health Questionnaire-2 Score 0 05/24/2023 [facility] of Occupat ional [facility] - Occupational Stress Questionnaire Answer Date [...] place to sleep or slept in a senior living (including now)? No 05/17/2023 Estimated Date of [...] AM EDT Routine [facility] [address] [address] Don Hidalgo DO [address] [place] [address] documented as of this encounter Visit Diagnoses Not on filedocumented in this encounter Care Teams Breast Surgeon Relationship Specialty Start Date End Date Taisha Ortiz MD [address] [place] [address] PCP - General Family Medicine 05/03/23 Stephanie Sotelo NP [address] [place] [address] PCP - Carloz Eduardo 07/16/24 documented as of this encounter
--- OUTSIDE RECORDS SUMMARY | 2024-12-14 09:49 | XMS_ITS | Encounter Summary ---
Author Organization [facility] Address [address] [place] [address] Care Team Providers Care Farm Contractor Name Role Phone Taisha Ortiz MD Primary Care Provider [phone] Stephanie Sotelo ROTATING FIELD ASSEMBLER Unavailable [phone] Encounter Details Date Type Department Care Team (Late st Contact Info) Description 09/23/2024 External Result Encounter [facility] [address] [place] [phone] Rebeca Hidalgo DO [address] [place], [place] [phone] Social History Tobacco Use Types Packs/Day Years [...] often do you attend chur ch or advent services? 1 to 4 times per year 05/17/2023 Do you belong to any clubs o r organizations such as religion groups, unions, fraternal or athletic groups, or [...] Recorded Patient Health Questionnaire-2 Score 0 05/24/2023 [facility] of Occupat ional [facility] - Occupational Stress Questionnaire Answer Date [...] [address] [place] [address] Rebeca Hidalgo DO [address] [facility] [address] [place] [address] documented as of this encounter Procedures Procedure Name Priority Date/Time Associated Diagnosis Comments US OB 14+ WEEKS ANATOMY SCAN 09/23/2024 1:55 PM EDT documented in this encounter Results * US OB 14+ weeks anatomy scan (09/23/2024 1:55 PM EDT) Anatomical Region Laterality Modality Body Ultrasound 09/23/2024 1:55 PM EDT Narrative 09/23/2024 1:55 PM EDT THIS EXAM WAS PERFORMED AT [facility] NAME: CLAUDIA DAHL : 2000 SEX: F Accession Number: [id number] ORDERING PHYSICIAN: CINTIA BANEGAS REFERRING PHYSICIAN: REBECA HIDALGO Coding ----- --------- Procedures 14949: Ultrasound, uterus, real time with image documentation, and maternal evaluation plus detailed anatomic examination, transabdominal approach;single or first gestation 98012: Transvaginal Ultrasound (OB) Indication ----- --------- Screening [...] EFW (oz) 13 oz EFW by: Hadlock ([id number]) Extended Tibia 28.7 mm 20w 3d 71% Heri Automation Engineering Manager 8.2 mm CM 5.6 mm 70% Nicolaides [...] Nose. Maxilla. Mandible. Orbits. Heart / Thorax 1-qcxbbn-kqyuwlw view. Aortic arch view. Interventricular septum. Great [...] 3.91 cm. Recommendations ----- --------- Please see [facility] documentation from today. Follow-up in 4-6 weeks is scheduled for completion of the anatomic survey Subsequent follow up or other follow up as clinically determined by primary OB provider unless otherwise specified by [facility]. Results forwarded to ordering provider so they can follow up with the patient as necessary. The copy-to physician of this order is REBECA King The ordering physician of this order is CINTIA Hartmann Procedure Note Radiology, Radiologist, - 09/23/2024 THIS EXAM WAS PERFORMED AT [facility] NAME: CLAUDIA DAHL : 2000 SEX: F Accession Number: [id number] ORDERING PHYSICIAN: CINTIA BANEGAS REFERRING PHYSICIAN: REBECA HIDALGO Coding ----- --------- Procedures [id number]: Ultrasound, uterus, real time with imagedocumentation, and maternal evaluation plus detailed anatomic examination, transabdominalapproach;single or first gestation 80604: Transvaginal Ultrasound (OB) Indication ----- --------- Screening [...] EFW (oz) 13 oz EFW by: Hadlock ([id number]) Extended Tibia 28.7 mm 20w 3d 71% Heri Automation Engineering Manager 8.2 mm CM 5.6 mm 70% Nicolaides [...] Nose. Maxilla. Mandible. Orbits. Heart / Thorax 0-yhgrwo-zdfwjos view. Aortic arch view. Interventricularseptum. Great vessels. [...] 3.91 cm. Recommendations ----- --------- Please see [facility] documentation from today. Follow-up in 4-6 weeks isscheduled for completion of the anatomic survey Subsequent follow up or other follow up as clinically determined byprimary OB provider unless otherwise specified by [facility]. Results forwarded to ordering provider so they can follow up with thepatient as necessary. The copy-to physician of this order is REBECA King The ordering physician of this order is CINTIA Hartmann us Rebeca Hidalgo DO IMG OB US PROCEDURES Final Resul t documented in this encounter Visit Diagnoses Not on filedocumented in this encounter Care Teams Farm Contractor Relationship Specialty Start Date End Date Taisha Ortiz MD [address] [place], [place] [phone] PCP - General Family Medicine 05/03/23 Stephanie Sotelo NP [address] [place], [place] [id number] PCP - Carloz Eduardo 07/16/24 documented as of this encounter
--- OUTSIDE RECORDS SUMMARY | 2024-12-14 09:49 | XMS_ITS | Encounter Summary ---
Author Organization [facility] Address [address] [place] [address] Care Team Providers Care Manager Highway Name Role Phone Taisha Ortiz MD Primary Care Provider [phone] Stephanie Sotelo SENIOR FIELD ENGINEER Unavailable Encounter Details Date Type Department Care Team (Late st Contact Info) Description 07/17/2024 Abstract [facility] [address] [facility] [id number] Don Hidalgo DO [address] [facility] [place] [address] Social History Tobacco Use Types Packs/Day Years [...] often do you attend chur ch or orthodoxy services? 1 to 4 times per year 05/17/2023 Do you belong to any clubs o r organizations such as judaism groups, unions, fraternal or athletic groups, or [...] Recorded Patient Health Questionnaire-2 Score 0 05/24/2023 [facility] of Occupat ional [facility] - Occupational Stress Questionnaire Answer [...] place to sleep or slept in a retirement (including now)? No 05/17/2023 Estimated Date of [...] 12/24/2024 10:00 AM EDT Routine [facility] [address] [facility] [place] [address] Don Hidalgo DO [address] [facility] [place] [place] [address] documented as of this encounter Visit Diagnoses Not on filedocumented in this encounter Care Teams Manager Highway Relationship Specialty Start Date End Date Taisha Ortiz MD [address] [place] [address] PCP - General Family Medicine 05/03/23 Stephanie Sotelo NP [address] [id number] PCP - Carloz Eduardo 07/16/24 documented as of this encounter
--- OUTSIDE RECORDS SUMMARY | 2024-12-14 09:49 | XMS_ITS | Encounter Summary ---
Author Organization [facility] Address [address] [place] [address] Care Team Providers Care Renewable Energy Broker Name Role Phone Taisha Ortiz MD Primary Care Provider [phone] Stephanie Sotelo PUBLIC ADDRESS SYSTEM OPERATOR Unavailable [phone] Encounter Details Date Type Department Care Team (Late st Contact Info) Description 07/23/2024 Abstract [facility] [address] [place] [id number] Don Hidalgo DO [address] [facility] [place] [address] Social History Tobacco Use Types Packs/Day Years [...] often do you attend chur ch or muslim services? 1 to 4 times per year 05/17/2023 Do you belong to any clubs o r organizations such as restorationist groups, unions, fraternal or athletic groups, or [...] Recorded Patient Health Questionnaire-2 Score 0 05/24/2023 [facility] of Occupat ional [facility] - Occupational Stress Questionnaire Answer Date Recorded [...] place to sleep or slept in a fci (including now)? No 05/17/2023 Estimated Date of [...] AM EDT Routine [facility] [address] [place] [address] Don Hidalgo DO [address] [facility] [place] [address] documented as of this encounter Visit Diagnoses Not on filedocumented in this encounter Care Teams Renewable Energy Broker Relationship Specialty Start Date End Date Taisha Ortiz MD [address] [place] [address] PCP - General Family Medicine 05/03/23 Stephanie Sotelo NP [address] [phone] PCP - Carloz Eduardo 07/16/24 documented as of this encounter
--- OUTSIDE RECORDS SUMMARY | 2024-12-14 09:49 | XMS_ITS | Encounter Summary ---
Author Organization [facility] Address [address] [place] [address] Care Team Providers Care Senior Qa Tester Name Role Phone Taisha Ortiz MD Primary Care Provider [phone] Stephanie Sotelo INCLUSION INTERNSHIP Unavailable [phone] Encounter Details Date Type Department Care Team (Late st Contact Info) Description 10/28/2024 Abstract [facility] [address] [facility] [place] [phone] Don Hidalog DO [address] [facility] [place] [address] Social History Tobacco Use Types Packs/Day Years [...] often do you attend chur ch or spiritism services? 1 to 4 times per year 05/17/2023 Do you belong to any clubs o r organizations such as lutheran groups, unions, fraternal or athletic groups, or [...] Recorded Patient Health Questionnaire-2 Score 0 05/24/2023 [facility] of Occupat ional [facility] - Occupational Stress Questionnaire Answer Date [...] place to sleep or slept in a [facility] (including now)? No 05/17/2023 Estimated Date of [...] AM EDT Routine [facility] [address] [facility] [address] Don Hidalgo DO [address] [facility] [place] [address] documented as of this encounter Visit Diagnoses Not on filedocumented in this encounter Care Teams Senior Qa Tester Relationship Specialty Start Date End Date Taisha Ortiz MD [address] [place] [address] PCP - General Family Medicine 05/03/23 Stephanie Sotelo NP [address] [phone] PCP - Carloz Eduardo 07/16/24 documented as of this encounter
--- OUTSIDE RECORDS SUMMARY | 2024-12-14 09:49 | XMS_ITS | CCD ---
Author Organization [facility] Care Team Providers Care Debeaker Name Role Phone DR DON HIDALGO Admitting Unavailable ROCKY, DR JOSE Attending Unavailable MISC, DR HENDERSON Primary Care Unavailable ROCKY, DR JOSE Consulting Unavailable Diana MACK, Taisha Primary Care Provider Unavailable Primary Care Provider Unavailabl e Unavailable Primary Care Provider Unavailabl e ROCKY, DON R Referring Unavailable CINTIA ALLEN Attending Unavailable ROCKY, DON R Referring Unavailable JIM MENDEZ Primary Care Physician [phone] Darin RICHARD Attending Unavailable Darin RICHARD Attending Unavailable ROCKY, Don R Referring Unavailable Ashleigh TRANSPORT TANK TECHNICIAN, Stephanie Villagran Unavailable SHANIKA HIDALGOY R Referring Unavailable ROCKY, DON Attending Unavailable ROCKY, DON Attending Unavailable ABEL, KATHIE Attending Unavailable ROCKY, DON Attending Unavailable ABEL, KATHIE Attending Unavailable ROCKY, DON Attending Unavailable ABEL, KATHIE Attending Unavailable Medications Current Medications Medication Drug [...] procedure, # 2 cap(s), Refills(s) 0, Pharmacy: [facility] [id number], 163, cm, 08/05/24 13:19:00 EDT, Height/Length Dosing, 100, kg, 08/05/24 13:19:00 EDT, Weight Dosing Start Date: 08/05/24 Status: Ordered Quantity: 2.0 Unit: cap(s) Repeat number: 1 ferrous gluconate (20 sources) take 1 dose by mouth once [...] mg iron tablet Take by mouth. Active Gsjgxf-EaAuty-Balvt-FA-[place] 3 (Duet DHA 400) 25-1 & 400 MG misc (2 sources) Ihutdy-TuQkuo-Ct qtb-LE-Rigde 3 (Duet DHA 400) 25-1 & 400 MG misc Take by mouth. 0 Active Ijhksnua-Cgf-Wo-FA (PRE- PO) (20 sources) take 1 dose by mouth once daily Rpottxir-Mss-Zx-FA (PRE- PO) Take 1 each by mouth Daily Active Multivitamins (1 source) Start : 07-31 take 1 tablet by mouth once daily Multivitamins 1 tab(s), Oral, Daily, Refill(s) 0 Start Date: 07/31/24 Status: Ordered Repeat number: 1 afq875-onmn-drmnp-e m3 (DUET DHA WITH OMEGA-3) 25 mg iron-1 mg -400 mg combo pack (4 sources) hes831- yitd-xgixe-os2 (DUET DHA WITH OMEGA-3) 25 mg iron-1 mg -400 mg combo pack Take by mouth. Active dda775- kkqv-qoeff-on6 (DUET DHA WITH OMEGA-3) 25 mg iron-1 mg -400 mg combo pack Take by mouth. 0 Active tbp301-ixzp-sftgo-m m3 25 mg iron-1 mg -400 mg combo pack (4 sources) sws664- zekq-ecflx-qg3 25 mg iron-1 mg -400 mg combo pack Take by mouth. Active swq148- thpt-tqeqw-ok1 25 mg iron-1 mg -400 mg combo [...] history, second trimester] Onset: 10-24-2024 Episodic Other complications of (2 sources) Excessive growth affecting management of mother; Translations: [Maternal care for excessive growth, third trimester, not applicable or unspecified] 11-28-2024 Episodic Other diseases of bladder and urethra [...] 07-23-2024 Episodic Other and delivery including normal (13 sources) First trimester ; Translations: [Encounter for [...] of ] 07-23-2024 Episodic Residual codes; unclassified (3 sources) H/O: Disorder; Translations: [Personal history of other [...] [27 weeks gestation of ] 11-14-2024 Episodic Residual codes; unclassified (2 sources) Gestation period, 29 weeks; Translations: [29 weeks gestation of ] 11-28-2024 Episodic Residual codes; unclassified (2 sources) Gestation period, 31 weeks; Translations: [31 weeks gestation of ] 12-12-2024 Episodic Past or Other Problems Problem Classification [...] NEGATED: Highlighted row has been ruled out!Unclassified (20 sources) No known active problems 05-24-2023 Results Test Name Value Interpretation Reference Range Facility Urinalysis macro (dipstick) panel (U)on 12-12-2024 Bilirubin, UA Negative Negative - 4(70) +++ mg/dL [facility] Blood, UA Negative Negative - 50 Eulogio/mcL [facility] Clarity, UA Clear [facility] Color, UA Hattie [facility] Glucose, UA Negative Negative - 1999(110) ++++ mg/dL [facility] Interpretation and review of laboratory results Abnormal [facility] Ketones, UA Negative Negative - 160(16) ++++ mg/dL [facility] Leukocytes, UA Positive Negative - 500+++ Rufina/mcL [facility] Comment on above: Trace Nitrite, UA Negative Negative - Positive [facility] pH, UA 6 5 - 9 [facility] Protein, UA Positive Negative - 1999(20) ++++ mg/dL [facility] Comment on above: 1+ Spec Grav, UA 1.02 1 - 1.03 [facility] Urobilinogen, UA 0.2 0.2 - 12 mg/dL [facility] Urinalysis macro (dipstick) panel (U)on 11-28-2024 Bilirubin, UA 1+ Negative - 4(70) +++ mg/dL [facility] Blood, UA Negative Negative - 50 Eulogio/mcL [facility] Clarity, UA Clear [facility] Color, UA Yellow [facility] Glucose, UA Negative Negative - 1999(110) ++++ mg/dL [facility] Interpretation and review of laboratory results Abnormal [facility] Ketones, UA Negative Negative - 160(16) ++++ mg/dL [facility] Leukocytes, UA 1+ Negative - 500+++ Rufina/mcL [facility] Nitrite, UA Negative Negative - Positive [facility] pH, UA 6 5 - 9 [facility] Protein, UA 1+ Negative - 1999(20) ++++ mg/dL [facility] Spec Grav, UA 1.015 1 - 1.03 [facility] Urobilinogen, UA 1.0 0.2 - 12 mg/dL [facility] ALL CBC WITH AUTO DIFFon BASOPHILS ABSOLUTE AUTO 0 [facility] Basophils/100 WBC (Bld) 0.2 % 0.2 - 2.0 % [facility] Eosinophils/100 WBC (Bld) 0.2 % Low 0.9 - 7.0 % [facility] Erythrocyte distribution width (RBC) [Ratio] 13.7 % 11.0 - 15.0 % [facility] Hematocrit (Bld) [Volume fraction] 32.3 % Low 36.0 - 48.0 % [facility] e Hemoglobin (Bld) [Mass/Vol] 10.6 g/dL Low 12.0 - 16.0 g/dL [facility] IMMATURE GRANULOCYTES ABS AUTO 0.04 High [facility] Immature granulocytes/100 WBC (Bld) 0.4 % 0.0 - 0.5 % [facility] Interpretation and review of laboratory results Abnormal [facility] LYMPHOCYTES ABSOLUTE AUTO 1.5 [facility] Lymphocytes/100 WBC (Bld) 16.2 % Low 20.5 - 60.0 % [facility] MCH (RBC) [Entitic mass] 30.9 pg 26.7 - 34.0 pg [facility] MCHC (RBC) [Mass/Vol] 32.8 g/dL 29.9 - 35.2 g/dL [facility] MCV (RBC) [Entitic vol] 94.2 fL 81.0 - 99.0 fL [facility] MONOCYTES ABSOLUTE AUTO 0.5 [facility] Monocytes/100 WBC (Bld) 5.8 % 1.7 - 12.0 % [facility] NEUTROPHILS ABSOLUTE AUTO 6.9 High [facility] Neutrophils/100 WBC (Bld) 77.2 % High 43.0 - 75.0 % [facility] Platelet mean volume (Bld) [Entitic vol] 10.1 fL 9.5 - 13.[address] PLT 183 [facility] RBC 3.43 Low [facility] WBC 9 [facility] Urinalysis macro (dipstick) panel (U)on 11-14-2024 Bilirubin, UA Negative Negative - 4(70) +++ mg/dL [facility] Blood, UA Negative Negative - 50 Eulogio/mcL [facility] Clarity, UA Clear [facility] Color, UA Yellow [facility] Glucose, UA Negative Negative - 1999(110) ++++ mg/dL [facility] Interpretation and review of laboratory results Abnormal [facility] Ketones, UA Negative Negative - 160(16) ++++ mg/dL [facility] Leukocytes, UA Positive Negative - 500+++ Rufina/mcL [facility] Comment on above: Small Nitrite, UA Negative Negative - Positive [facility] pH, UA 6.5 5 - 9 [facility] Protein, UA Positive Negative - 1999(20) ++++ mg/dL [facility] Comment on above: Small Spec Grav, UA 1.015 1 - 1.03 [facility] Urobilinogen, UA 0.2 0.2 - 12 mg/dL [facility] Urinalysis macro (dipstick) panel (U)on 10-17-2024 Bilirubin, UA Negative Negative - 4(70) +++ mg/dL [facility] Blood, UA Negative Negative - 50 Eulogio/mcL [facility] Healthcare Clarity, UA Clear [facility] Color, UA Yellow [facility] Glucose, UA Negative Negative - 1999(110) ++++ mg/dL [facility] Interpretation and review of laboratory results Normal [facility] Ketones, UA Negative Negative - 160(16) ++++ mg/dL [facility] Leukocytes, UA Negative Negative - 500+++ Rufina/mcL [facility] Nitrite, UA Negative Negative - Positive [facility] pH, UA 7 5 - 9 [facility] Protein, UA Negative Negative - 1999(20) ++++ mg/dL [facility] Spec Grav, UA 1.02 1 - 1.03 [facility] Urobilinogen, UA 0.2 0.2 - 12 mg/dL [facility] Ambulatory Visit Summaryon [...] [facility] [address], [place] [address] [phone] Medications What How Much When Instructions Unchanged [...] care provider who specializes in women's health (operations and maintenance technican). How is this treated? Treatment for this condition depends on the cause of the condition and your symptoms. Treatment may include: ??? Lubricants, ointments, and creams. ??? Physical therapy. ??? Massage therapy. ??? Hormonal therapy. ??? Medicines to: ? Prevent or fight infection. ? Relieve pain. ? Help numb the area. ? Treat de (more content not included)... [facility] Urology Office/Clinic Noteon 10-07-2024 Urology Office/Clinic [...] needed [facility] [address], [place] [address] [phone] Additional Instructions: Patient Education Dyspareunia, Female I, Chichi Bautista, personally scribed for Dr. Richard on 10/07/2024 08:53:24. . Documentation recorded by the scribeChichi, accurately reflects the services(s) I performed and [...] acel/tetanus ped (more content not included)... [facility] Comment on above: Result Comment: Elec tronically Signed By: Dairn RICHARD MD\.br\Date and Time Signed: 10/07/24 08:55 EDT\.br\Electronically Co-Signed By: Chichi Bautista\.br\Date and Time Co-Signed: 10/07/24 08:53 EDT GLUCOSE 1 HOURon 09-18-2024 Glucose [Mass/Vol] 104 mg/dL NINF - 13 0 mg/dL [facility] e Urinalysis macro (dipstick) panel (U)on 09-17-2024 Bilirubin, UA Negative Negative - 4(70) +++ mg/dL [facility] Blood, UA Negative Negative - 50 Eulogio/mcL [facility] Clarity, UA Clear [facility] re Color, UA Yellow [facility] Glucose, UA Negative Negative - 1999(110) ++++ mg/dL [facility] Interpretation and review of laboratory results Abnormal [facility] Ketones, UA Positive Negative - 160(16) ++++ mg/dL [facility] Comment on above: 40mg/dL Leukocytes, UA Negative Negative - 500+++ Rufina/mcL [facility] Nitrite, UA Negative Negative - Positive [facility] pH, UA 6 5 - 9 [facility] Protein, UA Negative Negative - 1999(20) ++++ mg/dL [facility] Spec Grav, UA 1.015 1 - 1.03 [facility] Urobilinogen, UA 0.2 0.2 - 12 mg/dL [facility] Urinalysis macro (dipstick) panel (U)on 08-20-2024 Bilirubin, UA Positive Negative - 4(70) +++ mg/dL [facility] Comment on above: small Blood, UA Negative Negative - 50 Eulogio/mcL [facility] Clarity, UA Clear [facility] Color, UA Yellow [facility] Glucose, UA Negative Negative - 1999(110) ++++ mg/dL [facility] Interpretation and review of laboratory results Abnormal [facility] Ketones, UA Positive Negative - 160(16) ++++ mg/dL [facility] Comment on above: 15mg/dL Leukocytes, UA Positive Negative - 500+++ Rufina/mcL [facility] Comment on above: small Nitrite, UA Negative Negative - Positive [facility] pH, UA 7.5 5 - 9 [facility] [facility] e Protein, UA Positive Negative - 1999(20) ++++ mg/dL [facility] Comment on above: 100mg/dL Spec Grav, UA 1.015 1 - 1.03 [facility] Urobilinogen, UA 1.0 0.2 - 12 mg/dL [facility] Ambulatory Visit Summaryon 0 08-05-2024 Ambulatory Visit Summary Ambulatory Visit Summary HESHAM AVALOS :2000 Visit Date:08/05/2024 Ambulatory Visit Instructions Your Diagnosis Urethral cyst Your Care Team Attending Physician - Darin RICHARD MD Primary Care Physician - JIM MENDEZ MD Referring Physician - Don HIDALGO DO This Is Your Medications List [...] [facility] [address], [place] [address] [phone] Medications What How Much When Instructions Unchanged [...] including vitamins, herbs, eye drops, creams, and icyy-msu-tybfcep medicines. ??? Any problems you or family [...] tells you to take them. ??? Taking kpmn-ymq-bntnrfy medicines, vitamins, herbs, and supplements. Tests You [...] (local ane (more content not included)... [facility] Urology Office/Clinic Noteon 08-05-2024 Urology Office/Clinic Note Urology Office/Clinic Note Chief Complaint New patient , urethral cyst HPI Staff 23 [address] Don Hidalgo DO due to urethral cyst since [...] yo female new pt referred by Dr. Don Hidalgo for urethral cyst. Pt is 13wks [...] RICHARD MD, URL [facility] [address], [place] [address]- [phone] Additional Instructions: schedule cystoscopy Patient Education Cystoscopy I, Chichi Bautista, personally scribed for Dr. Richard on 08/05/2024 13:43:38. . Documentation recorded by the scribeChichi, accurately reflects the services(s) I performed and [...] failure: Grandparent. Hypertension: Grandparent. Seizure: Sister. [facility] Comment on above: Result Comment: Elec [...] [facility] LIU ALBICANS, PARAPSILOSIS, TROPICALIS 0 [facility] LIU ALBICANS, PARAPSILOSIS, TROPICALIS Not detected [facility] GLABRATA 0 [facility] GLABRATA Not detected [facility] ealthcare LIU KRUSEI 0 [facility] Healt hcare LIU KRUSEI Not detected [facility] CHLAMYDIA TRACHOMATIS 0 [facility] CHLAMYDIA TRACHOMATIS Not detected [facility] GARDNERELLA VAGINALIS 0 [facility] GARDNERELLA VAGINALIS Not detected [facility] MEGASPHAERA (TYPES 1, 2) 0 [facility] MEGASPHAERA (TYPES 1, 2) Not detected [facility] MYCOPLASMA GENITALIUM 0 [facility] MYCOPLASMA GENITALIUM Not detected [facility] NEISSERIA GONORRHOEAE 0 [facility] NEISSERIA GONORRHOEAE Not detected [facility] TRICHOMONAS VAGINALIS 0 [facility] TRICHOMONAS VAGINALIS Not detected [facility] Urinalysis macro (dipstick) panel (U)on 07-23-2024 Bilirubin, UA Negative Negative - 4(70) +++ mg/dL [facility] Blood, UA Negative Negative - 50 Eulogio/mcL [facility] Clarity, UA Clear [facility] re Color, UA Yellow [facility] Glucose, UA Negative Negative - 1999(110) ++++ mg/dL [facility] Interpretation and review of laboratory results Abnormal [facility] Ketones, UA Positive Negative - 160(16) ++++ mg/dL [facility] Comment on above: trace Leukocytes, UA Negative Negative - 500+++ Rufina/mcL [facility] Nitrite, UA Negative Negative - Positive [facility] pH, UA 6.5 5 - 9 [facility] Protein, UA Trace Negative - 1999(20) ++++ mg/dL [facility] Spec Grav, UA 1.03 1 - 1.03 [facility] Urobilinogen, UA 0.2 0.2 - 12 mg/dL [facility] Free Cell DNAOrdered B y: Pao Fu on 07-16-2024 [facility] BOX TESTon 07-08-2024 BOX TEST SENT OUT [facility] althcare BOX1 [facility] Health[facility] e BOX2 07/08/24 [facility] B[facility] Drug Screen, Urineon 025 Amphetamine/Methamph etamine Negative [facility] Barbiturates Negative [facility] Benzodiazepines Negative [facility] Cocaine Metabolite Negative [facility] Methadone Negative [facility] Opiates Negative [facility] Oxycodone Negative [facility] Phencyclidine Negative [facility] Thc Marijuana, Urine Negative [facility] HIV 1&2 AB/AG Screen (P24 AG )on 07-08-2024 HIV 1&2 AB/AG Non-Reactive [facility] Hepatitis B surface antigeno n 07-08-2024 Hepatitis B Surface Antigen Negative [facility] Hepatitis C(HCV) Ab w/ Refle x to PCRon 07-08-2024 HCV Ab Ql (S) Non-Reactive [facility] No Panel Informationon 07-08 [facility] Rubella IGG immune statuson 07-08-2024 Rubella immune IgG IMMUNE [facility] Syphilis Total(Unknown Syphi lis Status)on 07-08-2024 Syphilis Non-Reactive [facility] Type and screenon 07-08-2024 Abo/Rh(D) Positive [facility] US OB TRANSVAGINALon 025 US OB [...] II, MD, PHD at 05-Jul-2024 08:37:00 PM [facility] Normal Not Available Comment on above: Order Comment: US OB TRANSVAGINAL No LMP recorded. Cytology Cervical or vaginal smear or scraping studyon 11-21-2023 [facility] PAP ACOG PANEL 2: 21 to 29on 03-04-2022 . . Normal [facility] Comment on above: Performed By: #### [id number] #### [facility] [address] [place] [address] Dr. Anthony Newton Age Gdln ACOG Testing - [facility] Comment on above: Performed By: #### [id number] #### [facility] [address] [place] [address] Dr. Anthony Newton DIAGNOSIS: Comment [facility] Comment on above: Result Comment: NEGA TIVE FOR INTRAEPITHELIAL LESION OR MALIGNANCY. THIS SPECIMEN WAS RESCREENED PART OF OUR AUTOMATIC SPREADER OPERATOR PROGRAM. Performed By: #### [id number] #### [facility] [address] [place] [address] Dr. Anthony Newton Methodology: Comment Normal [facility] Comment on above: Result Comment: This liquid based ThinPrep(R) pap test was screened with the use of an image guided system. Performed By: #### [id number] #### [facility] [address] [place] [address] Dr. Anthony Newton Note: Comment [facility] Comment on above: Result Comment: The Pap smear is a screening test designed to aid in the detection of premalignant and malignant conditions of the uterine cervix. It is not a diagnostic procedure and should not be used as the sole means of detecting cervical cancer. Both false-positive and false-negative reports do occur. . Performed By: #### [id number] #### [facility] [address] [place] [address] Dr. Anthony Newton Performed by: Comment Normal [facility] Comment on above: Result Comment: Lana Connell, Linoleum Layer Performed By: #### [id number] #### [facility] [address] [address] [address] Anthony Newton QC reviewed by: Comment Normal [facility] Comment on above: Result Comment: Shae Maria, Linoleum Layer (ASCP) Performed By: #### [id number] #### [facility] [address] [address] [address] Anthony Newton Reflex Criteria: Comment Normal [facility] Comment on above: Result Comment: The HPV DNA reflex criteria were not met with this specimen result therefore, no HPV testing was performed. . Performed By: #### 4 [id number] #### [facility] [address] [place] [address] Dr. Anthony Newton Specimen adequacy: Comment Normal [facility] Comment on above: Result Comment: Sati sfactory for evaluation. Endocervical and/or squamous metaplastic cells (endocervical component) are present. Performed By: #### 4 [id number] #### [facility] [address] [address] [address] Anthony Newton Lab - Toxicology Resultson 0 10-05-2018 Lab - Toxicology Results [id number]. 00OTGTIFF [facility] Outside Recordson 10-04-2018 Outside Records [id number]. 00OTGTIFF [facility] Triage Industrialon 10-05-19 19 Drug Screen Complete Collected Normal [facility] Comment on above: Performed By: #### 1 [id number] #### [facility] (DEFAULT) [address] [place] [address] ED Clinical Summaryon 2018 ED Clinical Summary [facility] ? Urgent Care [address] [place] [id number] Clinical Summary PERSON INFORMATION Name: HESHAM NEELY PAYAL Age: 18 Years Sex: FEMALE : 00 MRN: Acct#: Visit Reason: Medical screening exam; PHYSICAL PRE EMPLOYMENT/ [employer] Arrival: 10/03/18 16:20:33 Discharge: 10/03/18 16:50:00 LOS: 000 00:30 Check In: 10/03/18 16:20:33 Checkout: 10/03/18 16:50:00 Address: [address] [facility] [id number] PCP: PROVIDER INFORMATION Provider Role Assigned Unassigned [...] Instructions: Follow-Up: DIAGNOSIS: Patient Understands: Comment: Normal [facility] ED Patient Summaryon 019 ED Patient Summary [facility] ? Urgent Care [address] [place] [address] PATIENT DISCHARGE INSTRUCTIONS Patient Information Name: HESHAM NEELY Age: 18 Years Date of : 00 Reason For Visit: Medical screening exam; PHYSICAL PRE EMPLOYMENT/ [employer] Arrival Time: 10/03/18 16:20:33 Primary Care Physician: Attending Physician: Paulino Padilla Comment: Patient Education Medication Information: The exam and treatment you received today in the [facility] Emergency Department were for an urgent problem and are not intended as complete care. It is important for you to follow up with a doctor, nurse practitioner, or physician?s advertising assistant for ongoing care. If your symptoms [...] can reach you if necessary. [facility] Emergency Department has provided you with a complete list of medications post discharge. Please inform your liquified natural gas specialist/provider of your visit and for further instruction on these medications. Any specific questions regarding your chronic medications and dosages should be discussed with your primary care physician(s) and/or pharmacist. Visit Information Visit Diagnosis: Diagnoses This Visit Medical screening exam ([id number]) If you received any narcotics, sedation, or [...] sign any legal documents Reason for Visit: [place] physical Allergies: Substance Reaction Symptoms Type Comments [...] for Disease Control and Prevention December 2013 [facility] Vital Signs Date Time Vital Sign Value Performing Clinician Sole rodriguez 12-12-2024 10:28-0400 Body mass index (BMI) [Ratio] 38.96 kg/m2 Kathie COCHRAN Work Phone: [facility] 12-12-2024 10:28-0400 Body weight 102.97 kg Kathie Roman PA Work Phone: [facility] 12-12-2024 10:28-0400 Diastolic blood pressure 70 mm[Hg] Kathie Roman PA Work Phone: [facility] 12-12-2024 10:28-0400 Systolic blood pressure 130 mm[Hg] Kathie Roman PA Work Phone: [facility] 11-28-2024 08:48-0400 Body mass index (BMI) [Ratio] 38.62 kg/m2 Don Rocky DO Work Phone: [facility] 11-28-2024 08:48-0400 Body weight 102.06 kg Don Rocky DO Work Phone: [facility] 11-28-2024 08:48-0400 Diastolic blood pressure 74 mm[Hg] Don Rocky DO Work Phone: [facility] 11-28-2024 08:48-0400 Systolic blood pressure 118 mm[Hg] Don Rocky DO Work Phone: [facility] 11-14-2024 11:22-0400 Body mass index (BMI) [Ratio] 38.88 kg/m2 Kathie Roman PA Work Phone: [facility] 11-14-2024 11:22-0400 Body weight 102.74 kg Kathie Roman PA Work Phone: [facility] 11-14-2024 11:22-0400 Diastolic blood pressure 64 mm[Hg] Kathie COCHRAN Work Phone: [facility] 11-14-2024 11:22-0400 Systolic blood pressure 122 mm[Hg] Kathie COCHRAN Work Phone: [facility] 10-17-2024 08:10-0400 Body mass index (BMI) [Ratio] 38.66 kg/m2 Don Rocky DO Work Phone: [facility] 10-17-2024 08:10-0400 Body weight 102.17 kg Don Rocky DO Work Phone: [facility] 10-17-2024 08:10-0400 Diastolic blood pressure 58 mm[Hg] Don Rocky DO Work Phone: [facility] 10-17-2024 08:10-0400 Systolic blood pressure 114 mm[Hg] Don Rocky DO Work Phone: [facility] 09-23-2024 11:59-0400 Body height 162.6 cm Cintia Allen MD Work Phone: [facility] 09-23-2024 11:59-0400 Body mass index (BMI) [Ratio] 38.04 kg/m2 Cintia Allen MD Work Phone: [facility] 09-23-2024 11:59-0400 Body weight 100.52 kg Cintia Allen MD Work Phone: [facility] 09-23-2024 11:59-0400 Diastolic blood pressure 75 mm[Hg] Cintia Allen MD Work Phone: [facility] 09-23-2024 11:59-0400 Heart rate 90 /min Cintia Allen MD Work Phone: [facility] 09-23-2024 11:59-0400 Systolic blood pressure 119 mm[Hg] Cintia Allen MD Work Phone: [facility] 09-17-2024 13:49-0400 Body mass index (BMI) [Ratio] 38.28 kg/m2 Kathie COCHRAN Work Phone: [facility] 09-17-2024 13:49-0400 Body weight 101.15 kg Kathie COCHRAN Work Phone: [facility] 09-17-2024 13:49-0400 Diastolic blood pressure 78 mm[Hg] Kathie COCHRAN Work Phone: [facility] 09-17-2024 13:49-0400 Systolic blood pressure 124 mm[Hg] Kathie COCHRAN Work Phone: [facility] 08-20-2024 10:54-0400 Body mass index (BMI) [Ratio] 37.59 kg/m2 Don Rocky DO Work Phone: [facility] 08-20-2024 10:54-0400 Body weight 99.34 kg Don Rocky DO Work Phone: [facility] 08-20-2024 10:54-0400 Diastolic blood pressure 84 mm[Hg] Don Rocky DO Work Phone: [facility] 08-20-2024 10:54-0400 Systolic blood pressure 126 mm[Hg] Don Rocky DO Work Phone: [facility] 07-23-2024 12:54-0400 Body mass index (BMI) [Ratio] 38.28 kg/m2 Don Rocky DO Work Phone: [facility] 07-23-2024 12:54-0400 Body weight 101.15 kg Don Rocky DO Work Phone: [facility] 07-23-2024 12:54-0400 Diastolic blood pressure 80 mm[Hg] Don Rocky DO Work Phone: [facility] 07-23-2024 12:54-0400 Systolic blood pressure 120 mm[Hg] Don Rocky DO Work Phone: [facility] 05-24-2023 14:05-0500 Body height 162.6 cm Stephanie Sotelo TRANSPORT TANK TECHNICIAN Work Phone: [facility] 05-24-2023 14:05-0500 Body mass index (BMI) [Ratio] 34.57 kg/m2 Stephanie Sotelo TRANSPORT TANK TECHNICIAN Work Phone: [facility] 05-24-2023 14:05-0500 Body weight 91.35 kg Stephanie Blancopatrick TRANSPORT TANK TECHNICIAN Work Phone: [facility] 05-24-2023 14:05-0500 Diastolic blood pressure 74 mm[Hg] Stephanie Sotelo TRANSPORT TANK TECHNICIAN Work Phone: [facility] 05-24-2023 14:05-0500 Heart rate 63 /min Stephanie Blancopatrick TRANSPORT TANK TECHNICIAN Work Phone: [facility] 05-24-2023 14:05-0500 Respiratory rate 20 /min Stephanie Blancopatrick TRANSPORT TANK TECHNICIAN Work Phone: [facility] 05-24-2023 14:05-0500 SaO2% (BldA) [Mass fraction] 96 % Stephanie Blancopatrick TRANSPORT TANK TECHNICIAN Work Phone: [facility] 05-24-2023 14:05-0500 Systolic blood pressure 138 mm[Hg] Stephanie Whitlocktrick TRANSPORT TANK TECHNICIAN Work Phone: [facility] 04-12-2023 15:05-0500 Body height 162.6 cm Daniella Reina MD Work Phone: [facility] 04-12-2023 15:05-0500 Body mass index (BMI) [Ratio] 37.93 kg/m2 Daniella Reina MD Work Phone: [facility] 04-12-2023 15:05-0500 Body weight 100.25 kg Daniella Reina MD Work Phone: [facility] 04-12-2023 15:05-0500 Diastolic blood pressure 76 mm[Hg] Daniella Reina MD Work Phone: [facility] 04-12-2023 15:05-0500 Heart rate 96 /min Daniella Reina MD Work Phone: [facility] 04-12-2023 15:05-0500 Systolic blood pressure 115 mm[Hg] Daniella Reina MD Work Phone: [facility] Encounters Encounter Date Encounter Type Care Provider Facility Start: 12-12-2024 End: 12-12-2024 Bamboo flowsheet Kathie COCHRAN Work Phone: [facility] Start: 12-12-2024 End: 12-12-2024 Bamboo flowsheet Kathie COCHRAN Work Phone: [facility] Start: 12-12-2024 End: 12-12-2024 flow sheet Kathie COCHRAN Work Phone: [facility] Comment on above: Third trimester preg bria ([facility]); 31 weeks gestation of ([facility]) Start: 12-12-2024 End: 12-12-2024 ambulatory KATHIE ROMAN Not Available Start: 11-28-2024 End: 11-28-2024 Bamboo flowsheet Don Rocky DO Work Phone: [facility] Start: 11-28-2024 End: 11-28-2024 Bamboo flowsheet Don Rocky DO Work Phone: [facility] Start: 11-28-2024 End: 11-28-2024 flow sheet Don Rocky DO Work Phone: [facility] Comment on above: Third trimester preg bria ([facility]); 29 weeks gestation of ([facility]); History of placental abnormality; Excessive growth affecting management of in third trimester, single or unspecified fetus ([facility]) Start: 11-28-2024 End: 11-28-2024 ambulatory DON ROCKY Not Available Start: 11-16-2024 End: 11-16-2024 Clinisync Result Encounter Generic External Data Provider [facility] Unsolicited Start: 11-16-2024 End: 11-16-2024 Clinisync Result Encounter Generic External Data Provider [facility] Unsolicited Start: 11-14-2024 End: 11-14-2024 Bamboo flowsheet Kathie COCHRAN Work Phone: [facility] Start: 11-14-2024 End: 11-14-2024 Bamboo flowsheet Kathie COCHRAN Work Phone: [facility] Start: 11-14-2024 End: 11-14-2024 flow sheet Kathie COCHRAN Work Phone: [facility] Comment on above: Second trimester pre gnancy ([facility]); 27 weeks gestation of ([facility]) Start: 11-14-2024 End: 11-14-2024 ambulatory KATHIE ROMAN Not Available Start: 10-24-2024 End: 10-24-2024 ambulatory [facility] Start: 10-17-2024 End: 10-17-2024 Bamboo flowsheet Don Rocky DO Work Phone: [facility] Start: 10-17-2024 End: 10-17-2024 Bamboo flowsheet Don Rocky DO Work Phone: [facility] Start: 10-17-2024 End: 10-17-2024 flow sheet Don Rocky DO Work Phone: [facility] Comment on above: Second trimester pre gnancy ([facility]); 23 weeks gestation of ([facility]); Diabetes mellitus screening Start: 10-17-2024 End: 10-17-2024 ambulatory DON ROCKY Not Available Start: 10-07-2024 End: 10-07-2024 ambulatory Darin RICHARD Facility:[facility] Start: 10-07-2024 End: 10-07-2024 Patient encounter procedure Darin RICHARD [facility] Start: 09-23-2024 End: 09-23-2024 Office consultation new/estab patient 40 min Cintia Allen MD Work Phone: [facility] Comment on above: Obesity affecting pr egnancy in second trimester, unspecified obesity type (Primary Dx) Start: 09-23-2024 End: 09-23-2024 Orders Only Sherrill Hernandez [facility] Comment on above: Polyhydramnios affec ting (Primary Dx); Low-lying placenta; Placenta previa in second trimester; Velamentous insertion of umbilical cord in second trimester; Vasa previa, single or unspecified fetus; History of hemorrhage, currently in second trimester Start: 09-18-2024 End: 09-18-2024 Clinisync Result Encounter Don Rocky DO Work Phone: [facility] Unsolicited Start: 09-18-2024 End: 09-18-2024 Clinisync Result Encounter Don Rocky DO Work Phone: [facility] [...] survey Start: 08-20-2024 End: 08-20-2024 Bamboo flowsheet Don Rocky DO Work Phone: [facility] Start: 08-20-2024 End: 08-20-2024 Bamboo flowsheet Don Rocky DO Work Phone: [facility] Start: 08-20-2024 End: 08-20-2024 ambulatory DON ROCKY Not Available Start: 08-20-2024 End: 08-20-2024 flow sheet Don Rocky DO Work Phone: [facility] Comment on above: Second trimester pre gnancy; 15 weeks gestation of ; Diabetes mellitus screening Start: 08-05-2024 End: 08-05-2024 ambulatory Darin RICHARD Facility:[facility] Start: 08-02-2024 End: 08-02-2024 Chart abstracting Cintia Allen MD Work Phone: [facility] Start: 07-25-2024 ambulatory Facility:[facility] Start: 07-23-2024 End: 07-24-2024 External Result Encounter Don Rocky DO Work Phone: [facility] Unsolicited Start: 07-23-2024 End: 07-24-2024 External Result Encounter Don Rocky DO Work Phone: [facility] Unsolicited Start: 07-23-2024 End: 07-23-2024 flow sheet Don Rocky DO Work Phone: [facility] Comment on above: 11 weeks gestation o f ; First trimester ; History of placental abnormality; Vaginal discharge; Urethral cyst Start: 07-23-2024 End: 07-23-2024 ambulatory DON ROCKY Not Available Start: 07-08-2024 End: 07-08-2024 Clinisync Result Encounter Don Rocky DO Work Phone: [facility] Unsolicited Start: 07-08-2024 End: 07-08-2024 Clinisync Result Encounter Don Rocky DO Work Phone: [facility] Unsolicited Start: 07-05-2024 End: 07-05-2024 ambulatory DON ROCKY Not Available Start: 05-24-2023 Bamboo flowsheet Stephanie A Fit zpatrick TRANSPORT TANK TECHNICIAN Work Phone: [facility] Start: 05-24-2023 Bamboo flowsheet Stephanie A [employer] zpatrick TRANSPORT TANK TECHNICIAN Work Phone: [facility] Start: 05-24-2023 End: 05-24-2023 Patient encounter status Stephanie Blancopatrick TRANSPORT TANK TECHNICIAN Work Phone: [facility] Work Phone: Start: 05-24-2023 End: 05-24-2023 Periodic preventive med est patient 18-39 yrs Stephanie Blancopatrick TRANSPORT TANK TECHNICIAN Work Phone: [facility] Comment on above: Encounter for wellne ss examination (Primary Dx); Anemia, unspecified type Start: 04-12-2023 End: 04-12-2023 Office outpatient visit 25 minutes Daniella Reina MD Work Phone: [facility] [place] Comment on above: 35 weeks gestation o f (Primary Dx); Polyhydramnios affecting Start: 02-24-2022 End: 02-24-[address] DON HIDALGO Facility: Procedures Date Procedure Procedure Detail Performing Clinician Start: 12-12-2024 Urnls dip stick/tabl et rgnt non-auto w/o micrscp Kathie COCHRAN Work Phone: Start: 11-28-2024 Urnls dip stick/tabl et rgnt non-auto w/o micrscp Don Rocky DO Work Phone: Start: 11-16-2024 ALL CBC WITH AUTO DIFF Don Rocky DO Work Phone: Start: 11-14-2024 Urnls dip stick/tabl et rgnt non-auto w/o micrscp Kathie COCHRAN Work Phone: Start: 10-17-2024 Urnls dip stick/tabl et rgnt non-auto w/o micrscp Don Rocky DO Work Phone: Start: 09-18-2024 GLUCOSE 1 HOUR Don Fa zio DO Work Phone: Start: 09-17-2024 Urnls dip stick/tabl et rgnt non-auto w/o micrscp Kathie COCHRAN Work Phone: Start: 08-20-2024 Urnls dip stick/tabl et rgnt non-auto w/o micrscp Don Hidalgo DO Work Phone: Start: 07-23-2024 RECURRENT VAGINITIS (HTRX) Don Hidalgo DO Work Phone: Start: 07-23-2024 Urnls dip stick/tabl et rgnt non-auto w/o micrscp Donlupe Hidalgo DO Work Phone: Start: 07-08-2024 Antibody screen [...] System Ref Prov Start: 07-08-2024 BOX TEST Don murphy DO Work Phone: Start: 11-21-2023 Cytp cerv/vag auto t hin layer prep mnl screen Don Hidalgo DO Work Phone: Start: 11-09-2022 Microscopic observat ion [Identifier] in Cervix by Cyto stain Daniella Reina MD Work Phone: Start: 01-31-2021 Adult depression scr eening assessment Daniella Reina MD Work Phone: Start: 03-20-2018 Extraction of wisdom tooth Darin TINO Mouth care Darin RICHARD Myringotomy and inse rtion of T tube Darin TINO Tympanostomy Darin RICHARD Plan of Treatment Date Care Activity Detail Author Start: 12-19-2030 DTaP,Tdap and Td Vaccines (6 - Tdap) DTaP,Tdap and Td Vaccines (6 - Tdap) [facility] Start: 11-09-2025 Screening for malign ant neoplasm of cervix Pap Smear [facility] Start: 09-23-2025 Adult BMI Screening Adult BMI Screen ing [facility] Start: 09-23-2025 Tobacco Screening Tobacco Screening [facility] Start: 09-23-2025 End: 09-23-2025 US MFM with or without consult US MFM with or without consult Imaging Routine Polyhydramnios affecting Low-lying placenta Placenta previa in second trimester Velamentous insertion of umbilical cord in second trimester Vasa previa, single or unspecified fetus History of hemorrhage, currently in second trimester Expected: 09/23/2025 (Approximate), Expires: 09[facility]23/[facility]: Comment on above: Expected: 09/23/2025 (Approximate), Expires: 09/23/2025 Start: 12-24-2024 End: 12-24-2024 Patient encounter procedure 12/24/2024 10:00 AM EDT Routine [facility] [address] [place] [phone] Don Hidalgo DO [address] [place] [address] [facility] Start: 12-16-2024 Influenza vaccination [facility] Start: 12-12-2024 End: 12-12-2024 Patient encounter procedure 12/12/2024 10:10 AM EDT Routine [facility] [address] [place] [phone] Kathie Roman PA [address] [place], [place] [id number] Arrived [facility] Comment on above: Arrived Start: 11-28-2024 End: 03-30-2025 US for US OB follow up transabdominal approach Imaging Routine Third trimester ([facility]CC) History of placental abnormality Excessive growth affecting management of in third trimester, single or unspecified fetus ([facility]) Expected: 11/28/2024, Expires: 03/30/2025 [facility] Work Phone: Comment on above: Expected: 11/28/2024 , Expires: 03/30/2025 Start: 11-28-2024 End: 11-28-2024 Patient encounter procedure [facility] Comment on above: Arrived Start: 11-26-2024 End: 11-26-2024 Patient encounter procedure 11/26/2024 3:00 PM EDT Office Visit [facility] [address] [place] [phone] Don Hidalgo, [address] [place] [address] [facility] Start: 11-14-2024 End: 11-14-2024 Patient encounter procedure [facility] Comment on above: Arrived Start: 10-24-2024 End: 10-24-2024 Patient encounter procedure 10/24/2024 1:00 PM EDT Appointment [facility] [place] [phone] [facility] [place] Start: 10-17-2024 End: 10-17-2025 CBC panel - Blood by Automated count CBC Lab Routine Diabetes mellitus screening Expected: 10/17/2024 (Approximate), Expires: 10/17/2025 [facility] Work Phone: Comment on above: Expected: 10/17/2024 (Approximate), Expires: 10/17/2025 Start: 10-17-2024 End: 10-17-2025 Measurement of glucose 1 hour after glucose challenge for glucose tolerance test Glucose tolerance, 1 hour Lab Routine Diabetes mellitus screening Expected: 10/17/2024 (Approximate), Expires: 10/17/2025 [facility] Comment on above: Expected: 10/17/2024 (Approximate), Expires: 10/17/2025 Start: 10-17-2024 End: 10-17-2024 Patient encounter procedure 10/17/2024 10:10 AM EDT Routine [facility] [address] [place] [phone] Don Hidalgo, DO [address] [place] [address] [facility] Start: 10-17-2024 End: 10-17-2024 Patient encounter procedure 10/17/2024 8:10 AM EDT Routine [facility] [address] [place] [phone] Don Hidalgo, DO [address] [place] [address] Arrived [facility] Comment on above: Arrived Start: 09-23-2024 End: 09-23-2024 Patient encounter procedure [facility] Start: 09-17-2024 End: 09-17-2024 Patient encounter procedure 09/17/2024 1:30 PM EDT Routine [facility] [address] [place] [phone] Kathie Roman PA [address] [place] [address] [facility] Start: 08-20-2024 End: 10-20-2024 Alpha fetoprotein, maternal Alpha fetoprotein, maternal Lab Routine Second trimester 15 weeks gestation of Expected: 08/20/2024 (Approximate), Expires: 10/20/2024 [facility] Work Phone: Comment on above: Expected: 08/20/2024 (Approximate), Expires: 10/20/2024 Start: 08-20-2024 End: 08-20-2025 Measurement of glucose 1 hour after glucose challenge for glucose tolerance test Glucose tolerance, 1 hour Lab Routine Diabetes mellitus screening Expected: 08/20/2024 (Approximate), Expires: 08/20/2025 [facility] Comment on above: Expected: 08/20/2024 (Approximate), Expires: 08/20/2025 Start: 08-20-2024 End: 08-20-2024 Patient encounter procedure 08/20/2024 10:20 AM EDT Routine [facility] [address] [place] [phone] Don Hidalgo, DO [address] [place], [place] [phone] [facility] Start: 08-05-2024 End: 08-05-2024 Patient encounter procedure 08/05/2024 2:10 PM EDT Routine [facility] [address] [place] [phone] Don Hidalgo, DO [address] [place] [address] [facility] Start: 04-12-2024 Adult BMI Screening Adult BMI Screen ing [facility] Start: 04-12-2024 Tobacco Screening Tobacco Screening [facility] Start: 12-17-2023 COVID-19 Vaccine ( season) COVID-19 Vaccine ( season) [facility] Start: 12-17-2023 Influenza vaccination Influenza Vacc ine (#1) [facility] Start: 11-10-2023 Screening for Chlamy annabella trachomatis Chlamydia Screening [facility] Start: 10-15-2023 Influenza vaccination Influenza Vacc ine (#1) [facility] Comment on above: Postponed from 12/16 (Patient Refused) Start: 06-07-2023 End: 06-07-2023 ambulatory 06/07/2023 10:30 AM EST Visit [facility] [address] [place] [phone] Kathie Roman, PA [address] [place], [place] [phone] [facility] Start: 05-24-2023 End: 05-24-2024 CBC W Auto Differential panel - Blood CBC and differential Lab Routine Encounter for wellness examination Anemia, unspecified type Expected: 05/24/2023 (Approximate), Expires: 05/24/2024 [facility] Comment on above: Expected: 05/24/2023 (Approximate), Expires: 05/24/2024 Start: 05-24-2023 End: 05-24-2024 Comprehensive metabolic 2000 panel - Serum or Plasma Comprehensive metabolic panel Lab Routine Encounter for wellness examination Anemia, unspecified type Expected: 05/24/2023 (Approximate), Expires: 05/24/2024 [facility] Work Phone: Comment on above: Expected: 05/24/2023 (Approximate), Expires: 05/24/2024 Start: 12-16-2022 COVID-19 Vaccine () COVID-19 Vaccine () [facility] Start: 12-16-2022 Influenza vaccination N [facility] Start: 01-31-2022 Depression Screening Depression Scre [facility] Start: 2018 Adult BMI Follow Up Plan Adult BMI Follow Up Plan [facility] Start: 2012 Depression Screening Depression Scre [facility] CHLAMYDIA TRACHOMATI S (GENITO/STI) CHLAMYDIA TRACHOMATIS (GENITO/STI) Lab Routine Vaginal discharge Ordered: 07/23/2024 [facility] Comment on above: Ordered: 07/23/2024 Neisseria gonorrhoea e DNA [Presence] in Unspecified specimen by BOONE with probe detection Neisseria gonorrhea DNA probe, direct Lab Routine Vaginal discharge Ordered: 07/23/2024 [facility] Comment on above: Ordered: 07/23/2024 SURESWAB(R) ADVANCED VAGINITIS PLUS, TMA SURESWAB(R) ADVANCED VAGINITIS PLUS, TMA Pathology and Cytology Routine Vaginal discharge Ordered: 07/23/2024 [facility] Work Phone: Comment on above: Ordered: 07/23/2024 Immunizations Immunization Date Immunization Notes Care Provider Fa cility 06-03-2021 SARS-CoV-2 mRNA (ounazhjytxx-rxlf-hjdoh se) vaccine Darin RICHARD [facility] 05-13-2021 SARS-CoV-2 (COVID-19 ) mRNA BNT-162b2 vax Darin RICHARD [facility] 02-01-2021 Seasonal, quadrivale nt, recombinant, injectable influenza vaccine, preservative free Stephanie Sotelo TRANSPORT TANK TECHNICIAN Work Phone: [facility] 02-01-2021 influenza virus vaccine, unspecified formulation Daniella Reina MD Work Phone: [facility] 12-19-2020 diphtheria, tetanus toxoids and pertussis vaccine Daniella Reina MD Work Phone: [facility] 10-29-2019 hepatitis B vaccine, pediatric or pediatric/adolescent dosage Daniella Reina MD Work Phone: [facility] 05-14-2019 hepatitis B vaccine, adult dosage Daniella Reina MD Work Phone: [facility] 04-11-2019 hepatitis B vaccine, pediatric or pediatric/adolescent dosage Daniella Reina MD Work Phone: [facility] 04-11-2019 measles, mumps, rubella, and varicella virus vaccine Daniella Reina MD Work Phone: [facility] 11-09-2017 meningococcal ACWY vaccine, unspecified formulation Darin RICHARD [facility] 11-09-2017 meningococcal oligosaccharide (groups A, C, Y and W-135) diphtheria toxoid conjugate vaccine (MCV4O) Daniella Reina MD Work Phone: [facility] 12-08-2004 diphtheria, tetanus toxoids and acellular pertussis vaccine Daniella Reina MD Work Phone: [facility] 12-08-2004 measles, mumps and rubella virus vaccine Daniella Reina MD Work Phone: [facility] 12-08-2004 poliovirus vaccine, inactivated Daniella Reina MD Work Phone: [facility] 12-08-2004 poliovirus vaccine, unspecified formulation Darin RICHARD [facility] 09-28-2001 measles, mumps and rubella virus vaccine Daniella Reina MD Work Phone: [facility] 03-23-2001 diphtheria, tetanus toxoids and acellular pertussis vaccine, unspecified formulation Daniella Reina MD Work Phone: [facility] 03-23-2001 DTaP, unspecified formulation Darin RICHARD [facility] 03-23-2001 haemophilus influenz ae type b conjugate and Hepatitis B vaccine Daniella Reina MD Work Phone: [facility] 03-23-2001 poliovirus vaccine, inactivated Daniella Reina MD Work Phone: [facility] 03-23-2001 poliovirus vaccine, unspecified formulation Darin RICHARD [facility] 01-12-2001 diphtheria, tetanus toxoids and acellular pertussis vaccine, unspecified formulation Daniella Reina MD Work Phone: [facility] 01-12-2001 DTaP, unspecified formulation Darin RICHARD [facility] 01-12-2001 haemophilus influenz ae type b vaccine, HbOC conjugate Daniella Reina MD Work Phone: [facility] 01-12-2001 poliovirus vaccine, inactivated Daniella Reina MD Work Phone: [facility] 01-12-2001 poliovirus vaccine, unspecified formulation Darin RICHARD [facility] 2000 diphtheria, tetanus toxoids and acellular pertussis vaccine, unspecified formulation Daniella Reina MD Work Phone: [facility] 2000 DTaP, unspecified formulation Darin RICHARD [facility] 2000 haemophilus influenz ae type b conjugate and Hepatitis B vaccine Daniella Reina MD Work Phone: [facility] 2000 poliovirus vaccine, inactivated Daniella Reina MD Work Phone: [facility] 2000 poliovirus vaccine, unspecified formulation Darin RICHARD [facility] 2000 hepatitis B vaccine, pediatric or pediatric/adolescent dosage Daniella Reina MD Work Phone: [facility] NEGATED: Highlighted row has not occurred!04-11-2019 influenza, injectable, quadrivalent, preservative free Daniella Reina MD Work Phone: [facility] Comment on above: Deferred: Patient de cision Payers Date Payer Category Payer Private Health Insurance [id number] 2022 [facility] [id number] 2022 [facility] Managed Care - O ANTHEM [id number] 2022 Unknown [id number]. 1.13.693. [id number] 2021 Unknown [id number] 2000 Unknown [id number] 2.16.840.1.149921.3.579. 2.593 2000 Unknown [id number] 2.16.840.1.520592.3.579. 2.727 2000 Unknown [id number] 2.16.840.1.171143.3.579. 2.1286 2000 Unknown [id number] 2.16.840.1.093960.3.579. 2.1286 2000 Unknown [id number] 2.16.840.1.593075.3.579. 2.727 2000 Unknown [id number] 2.16.840.1.272045.3.579. 2.727 2000 Unknown [id number] 2.16.840.1.726396.3.579. 2.1286 2000 Unknown [id number] 2.16.840.1.808975.3.579. 2.1259 2000 Unknown [id number] 2.16.840.1.134822.3.579. 2.1259 2000 Unknown [id number] 2.16.840.1.127276.3.579. 2.1259 2000 Unknown [id number] 2.16.840.1.345657.3.579. 2.1259 2000 Unknown [id number] 2.16.840.1.392273.3.579. 2.1259 2000 Unknown [id number] 2.16.840.1.020468.3.579. 2.9 2000 Unknown [id number] 2.16.840.1.222251.3.579. 2.1259 2000 Unknown [id number] 2.16.840.1.617281.3.579. 2.9 2000 Unknown [id number] 2.16.840.1.669483.3.579. 2.1259 1959 Unknown [id number] Social History Date Type Detail Facility Start: 11-08-2022 End: 10-07-2024 Tobacco smoking status [facility] Never smoked tobacco [facility] Start: 11-08-2022 End: 04-12-2023 Tobacco use and exposure Smokeless tobacco non-user [facility] Start: 04-12-2023 End: 04-18-2023 Alcohol intake Lifetime non-drinker (finding) [facility] Start: 05-17-2023 End: 05-24-2023 History of Social function [facility] Start: 05-17-2023 End: 05-24-2023 Humiliation, Afraid, Rape, and Kick questionnaire [HARK] [facility] Within the last year , have you been afraid of your partner or ex-partner? No [facility] Are you now , , , , never or living with a partner? [facility] How often to you hav e a drink containing alcohol? 2-4 times a month [facility] How many standard drinks containing alcohol do you have on a typical day? 3 or 4 [facility] How often do you hav e 6 or more drinks on 1 occasion? Less than monthly [facility] How hard is it for y ou to pay for the very basics like food, housing, medical care, and heating Not hard at all [facility] Do you feel stress - tense, restless, nervous, or anxious, or unable to sleep at night because your mind is troubled all the time - these days [OSQ] Not at all [facility] (I/We) worried wheth er (my/our) food would run out before (I/we) got money to buy more. Never true [facility] Start: 08-15-2022 [facility] Start: 2000 Sex Assigned At Female [facility] Start: 10-07-2022 Gender identity Identifies as female gender (finding) [facility] Start: 10-07-2022 Sexual orientation Heterosexual (fin ding) [facility] Start: 05-24-2023 End: 11-28-2024 Alcohol intake Ex-drinker (finding) [facility] Are you now , , , , never or living with a partner? Living with partner [facility] How hard is it for y ou to pay for the very basics like food, housing, medical care, and heating Not very hard [facility] Do you feel stress - tense, restless, nervous, or anxious, or unable to sleep at night because your mind is troubled all the time - these days [OSQ] Very much [facility] Start: 01-31-2021 Education 21 [facility] Start: 11-18-2014 Sex Female (finding) [facility] Sexual Orientation [facility] NEGATED: Highlighted rowStart: [place] History of tobacco use Passive smoker [facility] Medical Equipment Procedure Code Equipment Code Equipment Origin al Text Equipment Identifier Dates Check blood suga r 4-5 times daily, fasting and 1 hour after meals. Use as directed. Dispense per insurance preference. [id number] Start: 04-12-2023 1 strip by miscellaneous route in the morning and 1 strip at noon and 1 strip in the evening and 1 strip before bedtime. Check blood sugar 4-5 times daily, fasting and 1 hour after meals. Use as directed. Dispense per insurance preference.. [id number] Start: 04-12-2023 Clinical Notes 04-12-2023 to 12-12-2024 DIMAS Cormier - 12/12/2024 10:10 AM Lala Boyd, KRISTOPHER - 11/28/2024 8:30 AM DIMAS Florentino - 11/14/2024 11:20 AM JAMAICAGUILLERMOcorina Boyd, KRISTOPHER - 10/17/2024 8:10 AM EDT Note Date & Type Note Facility 12-12-2024 History of Presen t illness Narrative Reason for Appointment: Patient ID: Hesham Avalos is a 24 y.o. female who presents for Routine Visit Patient presents today for Return OB appointment. MEDICATIONS Current Outpatient Medications Medication Instructions Ferrous Gluconate (IRON 27 PO) 1 each, Daily Fzdtkiid-Xga-Ca-FA (PRE-SIGIFREDO PO) 1 each, Daily ALLERGIES No Known Allergies PROBLEMS Active Ambulatory Problems Diagnosis Date Noted No Active Ambulatory Problems Resolved Ambulatory Problems Diagnosis Date Noted Obesity affecting in second trimester ([facility]) 01/27/2023 Velamentous insertion of umbilical cord in second trimester ([facility]) 01/27/2023 Past Medical History: Diagnosis Date 6 weeks follow-up ([facility]) HISTORY PAST MEDICAL HISTORY SOCIAL HISTORY Past Medical History: Diagnosis Date 6 weeks follow-up ([facility]) Social History Tobacco Use Smoking status: Never [...] Vitals: Estimated body mass index is 38.96 kg/m as calculated from the following: Height as of 24: 5' 4 . Weight as of this encounter: 227 lb. BP: 130/70 Patient's last menstrual period was 05/06/2024. ASSESSMENT & PLAN ICD-10-CM 1. Third trimester ([facility]) Z34.93 POCT urinalysis dipstick manually resulted 2. 31 weeks gestation of ([facility]) Z3A.31 Return OB: Patient presents today for [...] of: DIMAS Cormier documented in this encounter [facility] 11-28-2024 History of Presen t illness Narrative Reason for Appointment: Patient ID: Hesham Avalos is a 24 y.o. female who presents for Routine Visit Patient presents today for Return OB appointment. MEDICATIONS Current Outpatient Medications Medication Instructions Ferrous Gluconate (IRON 27 PO) 1 each, Daily Vhxqmlgn-Quw-Yi-FA (PRE-SIGIFREDO PO) 1 each, Daily ALLERGIES No Known Allergies PROBLEMS Active Ambulatory Problems Diagnosis Date Noted No Active Ambulatory Problems Resolved Ambulatory Problems Diagnosis Date Noted Obesity affecting in second trimester ([facility]) 01/27/2023 Velamentous insertion of umbilical cord in second trimester ([facility]) 01/27/2023 Past Medical History: Diagnosis Date 6 weeks follow-up ([facility]) HISTORY PAST MEDICAL HISTORY SOCIAL HISTORY Past Medical History: Diagnosis Date 6 weeks follow-up ([facility]) Social History Tobacco Use Smoking status: Never [...] nursing note reviewed. Exam conducted with a consultant nurse present. Vitals: Estimated body mass index is 38.62 kg/m as calculated from the following: Height as of 11/21/23: 5' 4 . Weight as of this encounter: 225 lb. BP: 118/74 Patient's last menstrual period was 05/06/2024. ASSESSMENT & PLAN ICD-10-CM 1. Third trimester ([facility]) Z34.93 POCT urinalysis dipstick manually resulted 2. 29 weeks gestation of ([facility]) Z3A.29 Patient presents today for a routine [...] Don Hidalgo DO documented in this encounter [facility] 11-14-2024 History of Presen t illness Narrative Reason for Appointment: Patient ID: Hesham Avalos is a 24 y.o. female who presents for Routine Visit Patient presents today for Return OB appointment. MEDICATIONS Current Outpatient Medications Medication Instructions Ferrous Gluconate (IRON 27 PO) 1 each, Daily Ttrdeuyp-Stt-Pq-FA (PRE- PO) 1 each, Daily ALLERGIES No Known Allergies PROBLEMS Active Ambulatory Problems Diagnosis Date Noted No Active Ambulatory Problems Resolved Ambulatory Problems Diagnosis Date Noted Obesity affecting in second trimester ([facility]) 01/27/2023 Velamentous insertion of umbilical cord in second trimester ([facility]) 01/27/2023 Past Medical History: Diagnosis Date 6 weeks follow-up ([facility]) HISTORY PAST MEDICAL HISTORY SOCIAL HISTORY Past Medical History: Diagnosis Date 6 weeks follow-up ([facility]) Social History Tobacco Use Smoking status: Never [...] ASSESSMENT & PLAN ICD-10-CM 1. Second trimester ([facility]) Z34.92 POCT urinalysis dipstick manually resulted 2. 27 weeks gestation of ([facility]) Z3A.27 Return OB: Patient presents today for [...] of: DIMAS Cormier documented in this encounter [facility] 10-17-2024 History of Presen t illness Narrative Reason for Appointment: Patient ID: Hesham Avalos is a 24 y.o. female who presents for Routine Visit Patient presents today for Return OB appointment. MEDICATIONS Current Outpatient Medications Medication Instructions Ferrous Gluconate (IRON 27 PO) 1 each, Daily Lokdbsgx-Evw-Fk-FA (PRE- PO) 1 each, Daily ALLERGIES No Known Allergies PROBLEMS Active Ambulatory Problems Diagnosis Date Noted No Active Ambulatory Problems Resolved Ambulatory Problems Diagnosis Date Noted Obesity affecting in second trimester ([facility]) 01/27/2023 Velamentous insertion of umbilical cord in second trimester ([facility]) 01/27/2023 Past Medical History: Diagnosis Date 6 weeks follow-up ([facility]) HISTORY PAST MEDICAL HISTORY SOCIAL HISTORY Past Medical History: Diagnosis Date 6 weeks follow-up ([facility]) Social History Tobacco Use Smoking status: Never [...] nursing note reviewed. Exam conducted with a consultant nurse present. Vitals: Estimated body mass index is 38.66 kg/m as calculated from the following: Height as of 11/21/23: 5' 4 . Weight as of this encounter: 225 lb 4 oz. BP: 114/58 Patient's last menstrual period was 05/06/2024. ASSESSMENT & PLAN ICD-10-CM 1. Second trimester ([facility]) Z34.92 POCT urinalysis dipstick manually resulted 2. 23 weeks gestation of ([facility]) Z3A.23 3. Diabetes mellitus screening Z13.1 CBC Glucose tolerance, 1 hour CBC Glucose tolerance, 1 hour Patient presents today for a routine obstetrics appointment. Patient is currently 23w3d with a Estimated Date of Delivery: 02/10/25. Patient given orders for CBC/1hour gtt and is scheduled for with MFM for repeat US. Patient to return to clinic in 4 weeks for return OB appointment. Documented by Franci Boyd LPN on behalf of: Don Hidalgo DO documented in this encounter [facility] 10-07-2024 Hospital Discharg e instructions Patient Education [...] care provider who specializes in women's health (operations and maintenance technican). How is this treated? Treatment for this [...] partner about your condition. General instructions Take zfgw-agm-upgtvmo and prescription medicines only as told by [...] sexual activity until your symptoms improve. Take eays-hmh-ylsljle and prescription medicines only as told by [...] provider. Document Revised: 2021 Document Reviewed: 2021 [employer] Patient Education 2023 [employer]. Follow Up Care 08/08/2024 12:40:44 With:TINO MACK, Darin Cummins, URL Address: [facility] [address] , [place] [address]- [phone] When: only if needed [facility] 10-07-2024 Note Patient Education Obstetrics and Gynecology [...] care provider who specializes in women's health (operations and maintenance technican). How is this treated? Treatment for this [...] about your condition. General instructions ??? Take vjmo-smz-duncoyv and prescription medicines only as told by [...] activity until your symptoms improve. ??? Take ftaq-rzb-gzbxfva and prescription medicines only as told by your health care provider. ??? Contact a health care provider if your symptoms get worse or do not improve with treatment. ??? Keep all follow-up visits. This is important. This information is not intended to replace (more content not included)... [facility] 09-23-2024 History of Presen t illness [...] GENDER Have you been seen here at [facility] in a previous ? No Recent ER visits or hospitalizations? No Bring blood sugar log or meter with you today? (Please bring them with you for every visit at [facility]) n/a Flu vaccine (Feb-June)? No Any concerns [...] Surgical History: Procedure Laterality Date MOUTH SURGERY 2017 MYRINGOTOMY W/ TUBES 2002 ALLERGIES: Allergies Allergen [...] insurance preference.., Disp: 100 each, Rfl: 1 [id number] (DUET DHA WITH OMEGA-3) 25 mg iron-1 mg -400 mg combo pack, Take by mouth., Disp: , Rfl: ferrous sulfate (HIGH POTENCY IRON) 27 mg iron tablet, Take by mouth. (Patient not taking: Reported on 09/23/2024), Disp: , Rfl: [id number] 25 mg iron-1 mg -400 mg combo [...] 39 weeks 8. Delivery method preferred vaginal. [place] C/S for usual obstetrical indications TIME OF CONSULTATION: We spent 30 minutes with the patient, >50% in discussion and counseling, coordination of care which was xcwq-xd-upnf. documented in this encounter [facility] 09-17-2024 History of Presen t illness Narrative Reason for Appointment: Patient ID: Hesham Avalos is a 24 y.o. female who presents for Routine Visit Patient presents today for Acute Visit. and Return OB appointment. MEDICATIONS Current Outpatient Medications Medication Instructions Ferrous Gluconate (IRON 27 PO) 1 each, Daily Lfooxodh-Hqb-Qs-FA (PRE- PO) 1 each, Daily ALLERGIES No [...] Gluconate (IRON 27 PO) 1 each, Daily Ayitrtoc-Pjq-Zd-FA (PRE-SIGIFREDO PO) 1 each, Daily ALLERGIES No [...] nursing note reviewed. Exam conducted with a consultant nurse present. Vitals: Estimated body mass index is [...] of: DIMAS Cormier documented in this encounter [facility] 08-20-2024 History of Presen t illness Narrative Reason for Appointment: Patient ID: Hesham Avalos is a 24 y.o. female who presents for Routine Visit Patient presents today for Return OB appointment. MEDICATIONS Current Outpatient Medications Medication Instructions Ferrous Gluconate (IRON 27 PO) 1 each, Daily Nnlfoyyr-Osy-Pg-FA (PRE-SIGIFREDO PO) 1 each, Daily ALLERGIES No [...] nursing note reviewed. Exam conducted with a consultant nurse present. Vitals: Estimated body mass index is [...] Date of Delivery: 02/10/25. [facility]. Pt given early one hour. Pt to return in 4 weeks for scheduled ob appt. Pt advised to take a baby aspirin. Documented by Brittany Christensen LPN on behalf of: Don Hidalgo DO documented in this encounter [facility] 08-05-2024 Note Patient Education Urology Cystoscopy Cystoscopy [...] including vitamins, herbs, eye drops, creams, and poti-ybd-uprrihn medicines. ??? Any problems you or family [...] tells you to take them. ??? Taking kfab-vta-jjnkimu medicines, vitamins, herbs, and supplements. Tests You [...] these instructions at home: Medicines ??? Take jcco-ixc-bkeaagf and prescription medicines only as told by [...] (biopsy) during your (more content not included)... [facility] 07-23-2024 History of Presen t illness Narrative Reason for Appointment: Patient ID: Hesham Avalos is a 23 y.o. female who presents for No chief complaint on file. Patient presents today for Return OB appointment. MEDICATIONS Current Outpatient Medications Medication Instructions Ferrous Gluconate (IRON 27 PO) 1 each, Daily Spurdayf-Dti-Md-FA (PRE-SIGIFREDO PO) 1 each, Daily ALLERGIES No [...] nursing note reviewed. Exam conducted with a consultant nurse present. Vitals: Estimated body mass index is [...] or undercooked meat, and stay away from [facility]. Patient has been consulted regarding any further do's and don'ts of . Patient voiced understanding and all questions and concerns were answered. Cultures obtained. Pt being referred to [facility] for h/o placental abnormality (vasa previa). Pt has cyst on urethra- referred to urologist Orders Placed This Encounter Procedures CHLAMYDIA TRACHOMATIS (GENITO/STI) Neisseria gonorrhea DNA probe, direct POCT urinalysis dipstick manually resulted Follow Up: Patient is to return in 4 weeks for routine OB appointment. Documented by Brittany Christensen LPN on behalf of: Don Hidalgo DO documented in this encounter [facility] 05-24-2023 History of Presen t illness Narrative Hesham Avalos is a 22 y.o. 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 SUBJECTIVE: MEDICATIONS: Current Outpatient Medications Medication Instructions Fanrvj-CxKlcm-Hkllk-FA-[place] 3 (Duet DHA 400) 25-1 & 400 [...] tenderness or frontal sinus tenderness. Mouth/Throat: Lips: [place]. Mouth: Mucous membranes are moist. Pharynx: Oropharynx [...] follow-ups on file. documented in this encounter [facility] 04-12-2023 History of Presen t illness Narrative [...] Drug Allergies CURRENT MEDICATIONS: Current Outpatient Medications: [id number] (DUET DHA WITH OMEGA-3) 25 mg iron-1 [...] insurance preference.., Disp: 100 each, Rfl: 1 [id number] 25 mg iron-1 mg -400 mg combo [...] patient is in complete care of her shift boss. Patient does have ultrasound and office visit scheduled with us. Thank you for allowing me to participate in the care of Hesham Avalos. If there any questions please do not hesitate to contact us. Daniella Reina MD Maternal- Medicine [facility] [address] [facility] [address] [place] [address] [facility], the CDC, and other organizations representing maternal and public health professionals recommend that , , and lactating people and those considering receive the COVID-19 vaccination. Vaccination is the best method to reduce maternal and complications of SARS-CoV-2 infection. This document was created with [employer] technology. Though I make every effort to review the dictation as it is transcribed, on occasion the spoken word can be misinterpreted by the technology leading to inappropriate words, phrases, or sentences. This note is addressed to the requesting provider as a consultation for clinical guidance. Specific medical abbreviations are occasionally used and those are generally approved by the [place]?Board of?Obstetrics and?Gynecology?as well as?[employer] s abbreviations. The above plan of care was based solely on the diagnoses for which a consultation was requested. ?More frequent testing may be indicated based on her other medical/obstetrical conditions. The management of other or medical conditions is beyond the scope of requested consultation and will continue to be followed by the primary shift boss or primary care provider. Note to patient: [...] of the practitioner. documented in this encounter [facility] [employer] [facility] Evaluation + Plan note No data available for this section [facility] Evaluation note Diagnosis Encounter for wellness examination- Primary Anemia, unspecified type [facility] Diagnosis 35 weeks gestation of - Primary Polyhydramnios affecting [facility] encounter [facility] [employer] [facility]* Diagnosis 11 weeks gestation of [...] obesity type- Primary [facility] Diagnosis Polyhydramnios affecting - Primary Low-lying placenta Hemorrhage from placenta previa, unspecified as to episode of care Placenta previa in second trimester Velamentous insertion of umbilical cord in second trimester Vasa previa, single or unspecified fetus History of hemorrhage, currently in second trimester [facility] Diagnosis Second trimester state, incidental 19 weeks gestation of Screening, , for anatomic survey Encounter for anatomic survey [facility] Diagnosis Second trimester ([facility]HS-HCC) state, incidental 23 weeks gestation of (HHS-HCC) Diabetes mellitus screening Screening for diabetes mellitus [facility] Diagnosis Second trimester ([facility]HS-HCC) state, incidental 27 weeks gestation of ([facility]HCC) [facility] Diagnosis Third trimester ([facility]HS-HCC) state, incidental 29 weeks gestation of ([facility]HS-HCC) History of placental abnormality Excessive growth affecting management of in third trimester, single or unspecified fetus (HHS-HCC) [facility]* Diagnosis Third trimester ([facility]HS-HCC) state, incidental 31 weeks gestation of ([facility]HS-HCC) documented in [facility] encounter [facility]ructionsNot on filedocumented in this encounter[facility] System[facility]ructionsNot on filedocumented in this encounterProMedica Health SystemInstructionsNot on filedocumented in this encounterProMedica Health SystemInstructionsNot on filedocumented in this [facility] [place] note No data available for this section [facility] Summary Purpose Family History No Family [...] MD [address] [place] [address] Referral ID Status Reason Start Date Expiration Date V isits Requested Visits Authorized [id number] Pending Review 1 1 Referral ID Status Reason Start Date Expiration Date V isits Requested Visits Authorized [id number] Pending Review 1 1 Additional Source Comments INFORMATION SOURCE (unrecogn ized section and content) DATE CREATED AUTHOR 10/05/2018 Louis [facility] DATE CREATED AUTHOR AUTHOR'S ORGANIZ ATION 04/13/2022 [facility] DATE CREATED AUTHOR AUTHOR'S ORGANIZ ATION 07/27/[address] [facility] DATE CREATED AUTHOR AUTHOR'S ORGANIZ ATION 09/24/2024 [facility] DATE CREATED AUTHOR AUTHOR'S ORGANIZ ATION 10/08/[address] [facility] DATE CREATED AUTHOR AUTHOR'S ORGANIZ ATION 10/29/2024 [facility] DATE CREATED AUTHOR AUTHOR'S ORGANIZ ATION 12/14/2024 [facility] dical Specialists EPIC Care Teams (unrecognized sec tion and content) Debeaker Relationship Specialty Start Date End Date Taisha Ortiz MD [address] [place] [address] PCP - General Family Medicine 05/03/23 Debeaker Relationship Specialty Start Date End Date Taisha Ortiz MD [address] [place] [address] PCP - General Family Medicine 05/03/23 Debeaker Relationship Specialty Start Date End Date Taisha Ortiz MD [address] [place] [address] PCP - General Family Medicine 05/03/23 Debeaker Relationship Specialty Start Date End Date Taisha Ortiz MD [address] [place] [address] PCP - General Family Medicine 05/03/23 Debeaker Relationship Specialty Start Date End Date Taisha Ortiz MD [address] [place] [address] PCP - General Family Medicine 05/03/23 Debeaker Relationship Specialty Start Date End Date Taisha Ortiz MD [address] [place] [address] PCP - General Family Medicine 05/03/23 Debeaker Relationship Specialty Start Date End Date Taisha Ortiz MD [address] [place] [address] PCP - General Family Medicine 05/03/23 Debeaker Relationship Specialty Start Date End Date Taisha Ortiz MD [address] [place] [address] PCP - General Family Medicine 05/03/23 Stephanie Sotelo NP [address] [place] [address] PCP - [employer] 07/16/24 Debeaker Relationship Specialty Start Date End Date Taisha Ortiz MD [address] [place] [address] PCP - General Family Medicine 05/03/23 Stephanie Sotelo NP [address] [place] [address] PCP - [employer] 07/16/24 Debeaker Relationship Specialty Start Date End Date Taisha Ortiz MD [address] [facility] [place], [place] [phone] PCP - General Family Medicine 05/03/23 Stephanie Sotelo NP [address] [facility] [place], [place] [address] PCP - [employer] 07/16/24 Debeaker Relationship Specialty Start Date End Date Taisha Ortiz MD [address] [facility] [place], [place] [phone] PCP - General Family Medicine 05/03/23 Stephanie Sotelo NP [address] [facility] [place], [place] [id number] [facility] Reason for Visit (unrecogniz ed section [...] BE BASED ON THE PRIMARY CLINICAL RECORDS. [employer] [facility]. provides no warranty or guarantee of the accuracy or completeness of information in this document.
--- OUTSIDE RECORDS SUMMARY | 2024-12-14 09:49 | XMS_ITS | Clinical Summary ---
Author Organization [employer] Address [id number] [place] [address] Care Team Providers Care Key Account Director Name Role Phone Unavailable Primary Care Provider Unavailabl e Allergies Active Allergy Reactions Criticality Noted Date Comments No Known Drug Allergies 05/29/2017 Medications [id number]-ko lic-om3 25 mg iron-1 mg -400 mg combo pack Take by mouth. A ctive ferrous sulfate (HIGH POTENCY IRON) 27 mg iron tablet Take by mouth. Activ e ssn100-rbbd-yq lic-om3 (DUET DHA WITH OMEGA-3) 25 mg [...] PM EDT Office Visit Maternal- Medicine at [facility] [address] [place] [address] Cintia Banegas MD Obesity affecting in second trimester, unspecified obesity type (Primary Dx) 09/23/2024 11:09 AM EDT - 09/23/2024 11:59 PM EDT Hospital Encounter [facility] - [facility] US Imaging [address] [place] [phone] Screening, , for anatomic survey Discharge Disposition: Home 09/23/2024 Orders Only Maternal- Medicine at [facility] [address] [place] [phone] Sherrill Hernandez CMA Polyhydramnios affecting (Primary Dx); [...] often do you attend chur ch or yarsani services? Never 01/31/2021 Do you belong to any clubs o r organizations such as yazdanism groups, unions, fraternal or athletic groups, or [...] Answer Date Recorded Total Score 6 01/31/2021 [facility] Occupational Stress Questionnaire Answer Date [...] Recorded Do you need help finding a [employer] career center and/or a training program? No [...] period is included. Anatomical Region Laterality Modality OB-SCOOP DRIVER Ultrasound 10/24/2024 12:5 8 PM EDT Narrative 10/25/2024 12:56 PM EDT NAME: CLAUDIA DAHL : 2000 SEX: F Accession Number: [id number] ORDERING PHYSICIAN: CINTIA BANEGAS REFERRING PHYSICIAN: REBECA PACE Coding ----- --------- Procedures 75769: Follow-up Ultrasound, per fetus Indication ----- --------- [...] EFW (oz) 15 oz EFW by: Hadlock ([id number]) Extended Tibia 40.1 mm 25w 2d 74% [employer] Chief 4.7 mm CM 7.6 mm 89% Nicolaides [...] view. RVOT view. LVOT view. 3-vessel view. 2-xpwjkc-qckwfsk view. Situs. Aortic arch view. Bicaval view. [...] primary OB provider unless otherwise specified by [facility]. Results forwarded to ordering provider so they can follow up with the patient as necessary. Procedure Note Daniella Reina MD - 10/25/2024 NAME: CLAUDIA DAHL : 2000 SEX: F Accession Number: [id number] ORDERING PHYSICIAN: CINTIA BANEGAS REFERRING PHYSICIAN: REBECA PACE Coding ----- --------- Procedures [id number]: Follow-up Ultrasound, per fetus Indication ----- --------- [...] EFW (oz) 15 oz EFW by: Hadlock ([id number]) Extended Tibia 40.1 mm 25w 2d 74% [employer] Chief 4.7 mm CM 7.6 mm 89% Nicolaides [...] 4-chamber view. RVOT view. LVOT view. 3-vessel view.2-bdbxcp-woxttzf view. Situs. Aortic arch view. Bicaval view. [...] thepatient as necessary. us Cintia Banegas MD [facility] ORDERABLES Final Resul t * Chlamydia/GC by PCR Elisabeth Swab (11/09/2022) Chlamydia Dna(Pcr) negative MANUALLY TRANSCRIBED RESULTS Gonorrhoeae Dna(Pcr) negative MANUALLY TRANSCRIBED RESULTS us Not In System Ref Prov MICROBIOLOGY - GENERAL OR DERABLES Final Result MANUALLY TRANSCRIBED RESULTS from Last 3 Months or Most Recently Relevant to Health Maintenance Insurance [employer]
--- OUTSIDE RECORDS SUMMARY | 2024-12-14 09:49 | XMS_ITS | Clinical Summary ---
Author Organization [facility] Address [address] [place] [address] Care Team Providers Care Entry Level Software Developer Name Role Phone Taisha Ortiz MD Primary Care Provider [phone] Stephanie Sotelo SPECIAL EVENTS DIRECTOR Unavailable [phone] Allergies No known active allergies Medications Blyprviv-Riz-Tg- FA (PRE- PO) Take 1 each by mouth Daily Active Ferrous Gluconate (IRON 27 PO) Take 1 each by mouth Daily Active Active Problems Estimated Date of Delivery Comme nts Yes 02/10/2025 Based on last me nstrual period of 05/06/2024 No known active problems Resolved Problems Problem Noted Date Diagnosed Date Resolved Date Obesity affecting in second trimester ([facility]) 01/27/2023 04/25/2023 Velamentous insertion of umb ilical cord in second trimester ([facility]) 01/27/2023 04/25/2023 Encounters Date Type Department Care Team Description 12/12/2024 10:10 AM EDT Routine [facility] [address] [place] [address] Kathie Lee PA Third trimester ([facility]); 31 weeks gestation of ([facility]) 12/12/2024 Bamboo flowsheet [facility] [address] [place] [address] Kathie Lee PA 11/28/2024 8:30 AM EDT Routine [facility] [address] [facility] [place] [address] Rebeca Hidalgo, Third trimester ([facility]); 29 weeks gestation of ([facility]); History of placental abnormality; Excessive growth affecting management of in third trimester, single or unspecified fetus ([facility]) 11/28/2024 Bamboo flowsheet [facility] [place] [facility] [place] [address] Rebeca Hidalgo, 11/16/2024 Clinisync Result Encounter NOMS External Department Unsolicited Provider, Generic External Data 11/14/2024 11:20 AM EDT Routine [facility] [place] [facility] [place] [address] Kathie Lee PA Second trimester ([facility]); 27 weeks gestation of ([facility]) 11/14/2024 Bamboo flowsheet [facility] [address] [facility] [place] [address] Kathie Lee PA 11/09/2024 Travel 10/28/2024 Abstract [facility] [place] [facility] [place] [address] Rebeca Hidalgo, 10/17/2024 8:10 AM EDT Routine [facility] [place] [facility] [place] [address] Rebeca Hidalgo, Second trimester ([facility]); 23 weeks gestation of ([facility]); Diabetes mellitus screening 10/17/2024 Bamboo flowsheet [facility] [address] [facility] [place] [address] Rebeca Hidalgo, 09/24/2024 Abstract [facility] [place] [facility] [place] [address] Mitali Madden MA 09/23/2024 External [place] [address] Rebeca Hidalgo DO 09/18/2024 Clinisync Result Encounter NOMS External Department Unsolicited Rebeca Hidalgo DO 09/17/2024 1:30 [place] [phone] Kathie Lee PA Second trimester ([facility]); 19 weeks gestation of ([facility]); Screening, , for anatomic survey ([facility]) 09/17/2024 [place] [phone] Kathie Lee PA from Last 3 Months Immunizations Immunization Administration Dates Next Due DTP 12/19/2020 DTaP 12/08/2004 DTaP, Unspecified 03/23/2001,01/12/2001,10/24/19 01 Hep B, Adolescent or Pediatric 10/29/2019,2018,2000 Hep [...] week 05/17/2023 How often do you attend [facility] or caodaism services? 1 to 4 times per year 05/17/2023 Do you belong to any clubs o r organizations such as catholic groups, unions, fraternal [...] Recorded Patient Health Questionnaire-2 Score 0 05/24/2023 [facility] of Occupat ional Health - Occupational Stress [...] place to sleep or slept in a care home (including now)? No 05/17/2023 Estimated Date [...] Pressure 130/70 12/12/2024 10:28 AM EDT Pulse 63 05/24/2023 2:05 PM EST Temperature - - Respiratory Rate 20 05/24/2023 2:05 PM EST Oxygen Saturation 96% 05/24/2023 2:05 PM EST Inhaled Oxygen Concentration - - Weight 103 kg (227 lb) 12/12/2024 10:28 AM EDT Height 162.6 cm (5' 4 ) 11/21/2023 2:10 PM EDT Body Mass Index 38.96 11/21/2023 2:10 PM EDT Plan of Treatment Upcoming Encounters Date Type Department Care Team (Late st Contact Info) Description 12/24/2024 10:00 AM EDT Routine [facility] [address] [facility] [place] [address] Rebeca Hidalgo DO [address] [facility] [place] [address] Health Maintenance Due Date Last Done Comments Influenza Vaccine (#1) 2024 02/01/2021 Procedures Procedure Name Priority Date/Time Associated Diagnosis Comments POCT URINALYSIS DIPSTICK Routine 12/12/2024 11:01 AM EDT Third trimester ([facility]) POCT URINALYSIS DIPSTICK Routine 11/28/2024 8:48 AM EDT Third trimester ([facility]) GLUCOSE 1 HOUR Routine 11/16/2024 10:06 AM EDT ALL CBC WITH AUTO DIFF Routine 11/16/2024 10:06 AM EDT POCT URINALYSIS DIPSTICK Routine 11/14/2024 11:35 AM EDT Second trimester ([facility]) POCT URINALYSIS DIPSTICK Routine 10/17/2024 9:01 AM EDT Second trimester ([facility]) US OB 14+ WEEKS ANATOMY SCAN 09/23/2024 1:55 PM EDT GLUCOSE 1 HOUR Routine 09/18/2024 8:37 AM EDT POCT URINALYSIS DIPSTICK Routine 09/17/2024 2:08 PM EDT Second trimester ([facility]) 19 weeks gestation of ([facility]) from Last 3 Months Results * (ABNORMAL) POCT urinalysis dipstick manually resulted (12/12/2024 11:01 AM EDT) Only the most recent of5 resultswithin the time period is included. Color, UA Hattie Clarity, UA Clear Glucose, [...] TEST ENTER/EDIT OR DERABLES Final Result * GLUCOSE 1 HOUR (11/16/2024 10:06 AM EDT) Only the most recent of2 resultswithin the time period is included. GLUCOSE 1 HOUR 120 <130 mg/dL [facility] 11/16/2024 10:0 6 AM EDT 11/16/2024 10:07 AM EDT Narrative CLINISYNC - 11/16/2024 10:45 AM EDT us Rebeca Hidalgo DO LAB BLOOD ORDERABLES Final Resul t [facility] * (ABNORMAL) ALL CBC WITH AUTO DIFF (11/16/2024 10:06 AM EDT) [facility] WBC 9.0 4.0 - 11.0 10 3/uL [facility] RBC 3.43(L) 4.20 - 5.40 10 6/uL [facility]H TBH HGB 10.6(L) 12.0 - 16.0 g/dL TBH TBH HCT 32.3(L) 36.0 - 48.0 % [facility]H [facility] MCV 94.2 81.0 - 99.0 fL TBH TBH MCH 30.9 26.7 - 34.0 pg TBH TBH MCHC 32.8 29.9 - 35.2 g/dL TBH TBH RDW 13.7 11.0 - 15.0 % TBH TBH PLT 183 150 - 450 10 3/uL TBH TBH MPV 10.1 9.5 - 13.5 fL [facility]H NEUTROPHILS PERCENT AUTO 77.2(H) 43.0 - 75.0 % TBH LYMPHOCYTES PERCENT AUTO 16.2(L) 20.5 - 60.0 % TBH MONOCYTES PERCENT AUTO 5.8 1.7 - 12.0 % TBH TBH EO % 0.2(L) 0.9 - 7.0 % TBH BASOPHILS PERCENT AUTO 0.2 0.2 - 2.0 % [facility] IMMATURE GRANULOCYTES PCT AUTO 0.4 0.0 - 0.5 % TBH NEUTROPHILS ABSOLUTE AUTO 6.9(H) 1.4 - 6.5 10 3/uL TBH LYMPHOCYTES ABSOLUTE AUTO 1.5 1.2 - 3.8 10 3/uL TBH MONOCYTES ABSOLUTE AUTO 0.5 0.3 - 0.8 10 3/uL TBH TBH EO # 0.0 0.0 - 0.7 10 3/uL TBH BASOPHILS ABSOLUTE AUTO 0.0 0.0 - 0.1 10 3/uL [facility]H IMMATURE GRANULOCYTES ABS AUTO 0.04(H) 0.00 - 0.03 10 3/uL [facility] 11/16/2024 10:0 6 AM EDT 11/16/2024 10:07 AM EDT Narrative CLINISYNC - 11/16/2024 10:30 AM EDT us Rebeca Hidalgo DO CLINISYVINNIE Final Result CLINISYNC [facility] * US OB 14+ weeks anatomy scan (09/23/2024 1:55 PM EDT) Anatomical Region Laterality Modality Body Ultrasound 09/23/2024 1:55 PM EDT Narrative 09/23/2024 1:55 PM EDT THIS EXAM WAS PERFORMED AT [facility] NAME: CLAUDIA DAHL : 2000 SEX: F Accession Number: [id number] ORDERING PHYSICIAN: CINTIA BANEGAS REFERRING PHYSICIAN: REBECA HIDALGO Coding ----- --------- Procedures [id number]: Ultrasound, uterus, real time with image documentation, and maternal evaluation plus detailed anatomic examination, transabdominal approach;single or first gestation 54153: Transvaginal Ultrasound (OB) Indication ----- --------- Screening [...] EFW (oz) 13 oz EFW by: Hadlock ([id number]) Extended Tibia 28.7 mm 20w 3d 71% [employer] 8.2 mm CM 5.6 mm 70% Nicolaides [...] Nose. Maxilla. Mandible. Orbits. Heart / Thorax 9-noneir-cfsjyxj view. Aortic arch view. Interventricular septum. Great vessels. Right lung. Left lung. Spine Thoracic spine. Lumbar spine. Sacral spine. Extremities / Left hand. Skeleton Maternal Structures ----- --------- Uterus Visualized Cervix Visualized Cervical length 3.91 cm Right Ovary Not visualized Left Ovary Not visualized Cul de Sac Visualized Impression ----- --------- Single viable intrauterine consistent with 20w 0d with an RYA of 02/10/2025. Transvaginal cervical length measures 3.91 cm. Recommendations ----- --------- Please see [facility] documentation from today. Follow-up in 4-6 weeks is scheduled for completion of the anatomic survey Subsequent follow up or other follow up as clinically determined by primary OB provider unless otherwise specified by M. Results forwarded to ordering provider so they can follow up with the patient as necessary. The copy-to physician of this order is REBECA King The ordering physician of this order is CINTIA Hartmann Procedure Note Radiology, Radiologist, MD - 09/23/2024 THIS EXAM WAS PERFORMED AT [facility] NAME: CLAUDIA DAHL : 2000 SEX: F Accession Number: [id number] ORDERING PHYSICIAN: CINTIA BANEGAS REFERRING PHYSICIAN: REBECA HIDALGO Coding ----- --------- Procedures [id number]: Ultrasound, uterus, real time with imagedocumentation, and maternal evaluation plus detailed anatomic examination, transabdominalapproach;single or first gestation [id number]: Transvaginal Ultrasound (OB) Indication ----- --------- Screening [...] EFW (oz) 13 oz EFW by: Hadlock ([id number]) Extended Tibia 28.7 mm 20w 3d 71% [employer] 8.2 mm CM 5.6 mm 70% Nicolaides [...] Nose. Maxilla. Mandible. Orbits. Heart / Thorax 3-negwis-rqkrwsr view. Aortic arch view. Interventricularseptum. Great vessels. [...] 3.91 cm. Recommendations ----- --------- Please see [facility] documentation from today. Follow-up in 4-6 weeks isscheduled for completion of the anatomic survey Subsequent follow up or other follow up as clinically determined byprimary OB provider unless otherwise specified by [facility]. Results forwarded to ordering provider so they can follow up with thepatient as necessary. The copy-to physician of this order is REBECA King The ordering physician of this order is CINTIA Hartmann us Rebeca Hidalgo DO IMG OB US PROCEDURES Final Resul t from Last 3 Months Insurance [facility] Care Teams Entry Level Software Developer Relationship Specialty Start Date End Date Taisha Ortiz MD [address] [place], [place] [id number] PCP - General Family Medicine 05/03/23 Stephanie Sotelo NP [address] [place], [place] [phone] PCP - [facility] 07/16/24
--- OUTSIDE RECORDS SUMMARY | 2024-12-14 09:49 | XMS_ITS | Encounter Summary ---
Author Organization [facility] Address [address] [place] [address] Care Team Providers Care Hotel Dining Room Cashier Name Role Phone Taisha Ortiz MD Primary Care Provider [phone] Stephanie Sotelo COLLECTOR OF INTERNAL REVENUE Unavailable [phone] Encounter Details Date Type Department Care Team (Late st Contact Info) Description 09/24/2024 Abstract [facility] [address] [place] [address] [place] [address] [place], [place] Social History Tobacco Use Types Packs/Day [...] often do you attend chur ch or protestant services? 1 to 4 times per year 05/17/2023 Do you belong to any clubs o r organizations such as scientologist groups, unions, fraternal or athletic groups, or [...] Patient Health Questionnaire-2 Score 0 05/24/2023 [facility] - Occupational Stress Questionnaire Answer [...] 12/24/2024 10:00 AM EDT Routine [facility] J[facility] [address] [facility] [place] [address] Don Hidalgo DO [address] [facility] [place] [address] documented as of this encounter Visit Diagnoses Not on filedocumented in this encounter Care Teams Hotel Dining Room Cashier Relationship Specialty Start Date End Date Taisha Ortiz MD [address] [place] [id number] PCP - General Family Medicine 05/03/23 Stephanie Sotelo NP [address] [place] [address] PCP - [place] [employer] 07/16/24 documented as of this encounter
--- OUTSIDE RECORDS SUMMARY | 2024-12-14 09:50 | XMS_ITS | Encounter Summary ---
Author Organization [facility] Address [address] [place] [address] Care Team Providers Care Corporate Development Intern Name Role Phone Taisha Ortiz MD Primary Care Provider [phone] Stephanie Sotelo RPG DEVELOPER Unavailable [phone] Encounter Details Date Type Department Care Team (Late Contact Info) Description 12/08/2022 Abstract [facility] J[facility]IER [address] [facility] [place] [address] Kathie Lee PA [address] [place] [address] [place], [place] [id number] Social History Tobacco Use Types Packs/Day Years [...] Department Care Team (Late Contact Info) Description 12/24/2024 10:00 AM EDT Routine [facility] JAVIER [address] [place] [phone] Don Hidalgo DO [address] [place] [address] documented as of this encounter Visit Diagnoses Not on filedocumented in this encounter Care Teams Corporate Development Intern Relationship Specialty Start Date End Date Taisha Ortiz MD [address] [place], [place] [id number] PCP - General Family Medicine 05/03/23 Stephanie Sotelo NP [address] [place] [address] PCP - [facility] Eduardo 07/16/24 documented as of this encounter
--- OUTSIDE RECORDS SUMMARY | 2024-12-14 09:50 | XMS_ITS | Encounter Summary ---
Author Organization [facility] Address [address] [place] [address] Care Team Providers Care Heavy Equipment Supervisor Name Role Phone Taisha Ortiz MD Primary Care Provider [phone] Stephanie Sotelo POLYMER MATERIALS CONSULTANT Unavailable [phone] Encounter Details Date Type Department Care Team (Late st Contact Info) Description 12/30/2022 Clinisync Result Encounter NOMS External Department Unsolicited Kathie Roman PA [address] [facility] [place] [address] Social History Tobacco Use Types Packs/Day Years [...] AM EDT Routine [facility]ole [address] [facility] [place] [address] Don Hidalgo DO [address] [facility] [place] [address] documented as of this encounter Procedures Procedure Name Priority Date/Time Associated Diagnosis Comments US OB TRANSVAGINAL 12/30/2022 5: 41 PM EDT documented in this encounter Results * US OB TRANSVAGINAL (12/30/2022 5:41 PM EDT) Anatomical Region Laterality Modality Other 12/30/2022 5:41 PM EDT Narrative 12/30/2022 5:41 [place] [address] Ultrasound Report Signed Patient: HESHAM TAYLOR MR#: [id number] : 2000 Acct:[id number] Age/Sex: 22 / F ADM Date: 12/30/22 Loc: US Attending Dr: Kathie Roman Ordering Physician: Kathie Roman Date of Service: 12/30/22 Procedure(s): US OB transvaginal Accession Number(s): [id number] cc: Kathie Roman; Physician,Non-Staff M.D. [place] [id number] Patient Name: HESHAM TAYLOR MRN: [id number] date: 2000 Sex: F Assigned Patient Location: US Current Patient Location: US Accession/Order Number: [id number] Exam Date: 12/30/2022 07:55 Report Date: 12/30/2022 [...] M.D. Signed By: 12/30/221743 DD/ 40 TD/TT: Interior Surface Insulation Worker: Procedure Note Radiology, Radiologist, MD - 01/06/2023 [place] [address] Ultrasound Report Signed Patient: HESHAM TAYLOR AMR#: [id number] : 2000Acct:[id number] Age/Sex: 22 / FADM Date: 12/30/22 Loc: US Attending Dr: Kathie Roman Ordering Physician: Kathie Roman Date of Service: 12/30/22 Procedure(s): US OB transvaginal Accession Number(s): [id number] cc: Kathie Roman; Physician,Non-Staff Ann-Marie The [address] [address] Patient Name: HESHAM TAYLOR MRN: [id number] date: 2000 Sex: F Assigned Patient Location: US Current Patient Location: US Accession/Order Number: [id number] Exam Date: 12/30/2022 07:55 Report Date: 12/30/2022 [...] Souza M.D. Signed By:12/30/221743 DD/ 40 TD/TT: Interior Surface Insulation Worker: us Kathie [facility] Final Result documented in this encounter Visit Diagnoses Not on filedocumented in this encounter Care Teams Heavy Equipment Supervisor Relationship Specialty Start Date End Date Taisha Ortiz MD [address] [facility] [place], [place] [id number] PCP - General Family Medicine 05/03/23 Stephanie Sotelo NP [address] [facility] [place], [place] [address] PCP - [place] 07/16/24 documented as of this encounter
--- OUTSIDE RECORDS SUMMARY | 2024-12-14 09:50 | XMS_ITS | Encounter Summary ---
Author Organization [facility] Address [address] [place] [address] Care Team Providers Care Range Master Name Role Phone Taisha Ortiz MD Primary Care Provider [phone] Stephanie Sotelo TURRET LATHE SET UP OPERATOR Unavailable [phone] Encounter Details Date Type Department Care Team (Late st Contact Info) Description 12/30/2022 Clinisync Result Encounter [facility] External Department Unsolicited Kathie Roman PA [address] [place] [address] Social History Tobacco Use Types Packs/Day Years [...] AM EDT Routine [facility] [address] [place] [id number] Don Hidalgo DO [address] [place] [address] documented as of this encounter Procedures Procedure Name Priority Date/Time Associated Diagnosis Comments US OB ANATOMY 12/30/2022 5:41 PM EDT documented in this encounter Results * US OB ANATOMY (12/30/2022 5:41 PM EDT) Anatomical Region Laterality Modality Other 12/30/2022 5:41 PM EDT Narrative 12/30/2022 5:41 [place] [address] Ultrasound Report Signed Patient: HESHAM TAYLOR MR#: [id number] : 2000 Acct:[id number] Age/Sex: 22 / F ADM Date: 12/30/22 Loc: US Attending Dr: Kathie Roman Ordering Physician: Kathie Roman Date of Service: 12/30/22 Procedure(s): US OB anatomy Accession Number(s): [id number] cc: Kathie Roman; Physician,Non-Staff M.D. [place] [id number] Patient Name: HESHAM TAYLOR MRN: [id number] date: 2000 Sex: F Assigned Patient Location: Current Patient Location: Accession/Order Number: [id number] Exam Date: 12/30/2022 07:55 Report Date: 12/30/2022 [...] M.D. Signed By: 12/30/221743 DD/ 40 TD/TT: Bulk Intake Worker: Procedure Note Radiology, Radiologist, MD - 01/06/2023 The [place] [id number] Ultrasound Report Signed Patient: HESHAM TAYLRO AMR#: [id number] : 2000Acct:[id number] Age/Sex: 22 / FADM Date: 12/30/22 Loc: US Attending Dr: Kathie Roman Ordering Physician: Kathie Roman Date of Service: 12/30/22 Procedure(s): US OB anatomy Accession Number(s): [id number] cc: Kathie Roman; Physician,Non-Staff Ann-Marie The [address] [address] Patient Name: HESHAM TAYLOR MRN: [id number] date: 2000 Sex: F Assigned Patient Location: US Current Patient Location: US Accession/Order Number: [id number] Exam Date: 12/30/2022 07:55 Report Date: 12/30/2022 [...] Souza M.D. Signed By:12/30/221743 DD/ 40 TD/TT: Bulk Intake Worker: us Kathie [facility] Final Result documented in this encounter Visit Diagnoses Not on filedocumented in this encounter Care Teams Range Master Relationship Specialty Start Date End Date Taisha Ortiz MD [address] [place] [address] PCP - General Family Medicine 05/03/23 Stephanie Sotelo NP [address] [place] [address] PCP - Carloz Commercial 07/16/24 documented as of this encounter
== END 2024-12-14 09:48 | disposition home or self-care (01) ==
LOC: US 09:47
PROVIDERS: PCP Family Medicine; Visit Provider Obstetrics & Gynecology
DX: O36.63X0 Maternal care for excessive fetal growth, third trimester, not applicable or unspecified (principal); Z87.59 Personal history of other complications of pregnancy, childbirth and the puerperium; Z3A.35 35 weeks gestation of pregnancy
CPT/HCPCS: 76816

== ENCOUNTER 2024-12-27 11:17 | Observation (INO) | payer BC, SELFPAY ==
--- OUTSIDE RECORDS SUMMARY | 2024-12-24 10:00 | XMS_ITS | Encounter Summary ---
Author Organization [facility] Address [address] [place] [address] Care Team Providers Care Spider Assembler Name Role Phone Taisha Ortiz MD Primary Care Provider [phone] Stephanie Sotelo FRUIT CHECKER Unavailable [phone] Reason for Visit * Reason Comments Routine Visit Encounter Details Date Type Department Care Team (Late Contact Info) Description 12/24/2024 10:00 AM EDT Routine [facility] [place] [facility] [address] [place] [phone] Don Hidalgo DO [address] [place], [place] [id number] Third trimester ([facility]); 33 weeks gestation of ([facility]); History of placental abnormality; Excessive growth affecting management of , antepartum, single or unspecified fetus ([facility]) Social History Tobacco Use Types Packs/Day [...] often do you attend chur ch or pentecostal services? 1 to 4 times per year 05/17/2023 Do you belong to any clubs o r organizations such as moravian groups, unions, fraternal or athletic groups, or [...] Recorded Patient Health Questionnaire-2 Score 0 05/24/2023 [facility] of Occupat ional Health - Occupational Stress [...] place to sleep or slept in a nursing home (including now)? No 05/17/2023 Estimated Date [...] Sign Reading Time Taken Comments Blood Pressure 124/70 12/24/2024 10:07 AM EDT Pulse - - Temperature - - Respiratory Rate - - Oxygen Saturation - - Inhaled Oxygen Concentration - - Weight 104 kg (229 lb) 12/24/2024 10:07 AM EDT Height - - Body Mass Index 39.31 11/21/2023 2:10 PM EDT documented in this encounter Progress Notes * Brittany Christensen LPN - 12/24/2024 10:00 AM EDT Reason for Appointment: Patient ID: Shelby Avalos is a 24 y.o. female who presents for Routine Visit Patient presents today for Return OB appointment. MEDICATIONS Current Outpatient Medications Medication Instructions Ferrous Gluconate (IRON 27 PO) 1 each, Daily Mzgzibmh-Vfb-Cw-FA (PRE-SIGIFREDO PO) 1 each, Daily ALLERGIES No Known Allergies PROBLEMS Active Ambulatory Problems Diagnosis Date Noted History of placental abnormality 12/24/2024 Resolved Ambulatory Problems Diagnosis Date Noted Obesity affecting in second trimester ([facility]) 01/27/2023 Velamentous insertion of umbilical cord in second trimester ([facility]) 01/27/2023 Past Medical History: Diagnosis Date 6 weeks follow-up ([facility]) HISTORY PAST MEDICAL HISTORY SOCIAL HISTORY Past Medical History: Diagnosis Date 6 weeks follow-up ([facility]) Social History Tobacco Use Smoking status: [...] nursing note reviewed. Exam conducted with a asphalt mixer present. Vitals: Estimated body mass index is 39.31 kg/m?? as calculated from the following: Height as of 11/21/23: 5' 4 . Weight as of this encounter: 229 lb. BP: 124/70 Patient's last menstrual period was 05/06/2024. ASSESSMENT & PLAN ICD-10-CM 1. Third trimester ([facility]) Z34.93 POCT urinalysis dipstick manually resulted 2. 33 weeks gestation of ([facility]) Z3A.33 3. History of placental abnormality Z87.59 Return OB: Patient presents today for a routine obstetrics appointment. Patient is currently 33w1d . Patient states she is doing well but has complaints of being tired due to current . Patient has verbalizes frequent movement. labor precautions was discussed/given and patient was instructed to perform kick counts three times a day. Pt given growth ultrasound for measuring ahead. Orders Placed This Encounter Procedures US OB follow up transabdominal approach POCT urinalysis dipstick manually resulted Follow Up: Patient is to return to office in 2 week for routine OB appointment. Documented by Brittany Christensen LPN on behalf of: Don Hidalgo DO documented in this encounter Plan of Treatment Upcoming Encounters Date Type Department Care Team (Late st Contact Info) Description 01/06/2025 10:20 AM EDT Routine [facility] [address] [place] [phone] Kathie Lee PA [address] [place] [place] [address] Scheduled Orders Name Type Priority Associated Diagnoses Orde r Schedule US OB follow up transabdominal approach Imaging Routine Excessive growth affecting management of , antepartum, single or unspecified fetus ([facility]) Expected: 12/24/2024, Expires: 04/25/2025 documented as of this encounter Procedures Procedure Name Priority Date/Time Associated Diagnosis Comments POCT URINALYSIS DIPSTICK Routine 12/24/2024 10:13 AM EDT Third trimester ([facility]) documented in this encounter Results * (ABNORMAL) POCT urinalysis dipstick manually resulted (12/24/2024 10:13 AM EDT) Color, UA Yellow Clarity, UA Clear Glucose, UA Negative Negative - 2000(110) ++++ mg/dL Bilirubin, UA Negative Negative - 4(70) +++ mg/dL Ketones, UA Negative Negative - 160(16) ++++ mg/dL Spec Grav, UA 1.015 1 - 1.03 Blood, UA Negative Negative - 50 Eulogio/mcL pH, UA 6.5 5 - 9 Protein, UA 1+ Negative - 2000(20) ++++ mg/dL Urobilinogen, UA 1.0 0.2 - 12 mg/dL Leukocytes, UA Negative Negative - 500+++ Rufina/mcL Nitrite, UA Negative Negative - Positive Urine 12/24/2024 10:1 3 AM EDT Don Rocky DO POINT OF CARE TEST ENTER/EDIT OR DERABLES Final Result documented in this encounter Visit Diagnoses Diagnosis Third trimester ([facility]) state, incidental 33 weeks gestation of ([facility]) History of placental abnormality Excessive growth affecting management of , antepartum, single or unspecified fetus ([facility]) documented in this encounter Care Teams Spider Assembler Relationship Specialty Start Date End Date Taisha Ortiz MD [address] [place] [address] PCP - General Family Medicine 05/03/23 Stephanie Sotelo NP [address] [place] [address] PCP - Carloz Commercial 07/16/24 documented as of this encounter
--- OUTSIDE RECORDS SUMMARY | 2024-12-27 11:21 | XMS_ITS | Encounter Summary ---
Author Organization [facility] Address [address] [place] [address] Care Team Providers Care Life Skills Consultant Name Role Phone Dayana Pena MD Primary Care Provider [phone] Stephanie Sotelo DOCK GRADER Unavailable [phone] Encounter Details Date Type Department Care Team (Late st Contact Info) Description 12/14/2024 Clinisync Result Encounter [facility] External Department Unsolicited Provider, Generic External Data Social History Tobacco Use Types Packs/Day Years [...] often do you attend chur ch or roman catholic services? 1 to 4 times per year 05/17/2023 Do you belong to any clubs o r organizations such as nondenominational groups, unions, fraternal or athletic groups, or [...] [facility] Occupat ional Health - [...] AM EDT Routine [facility] [address] [place] [address] Kathie Lee PA [address] [place], [place] [phone] documented as of this encounter Procedures Procedure Name Priority Date/Time Associated Diagnosis Comments US OB GROWTH 12/14/2024 11:17 AM EDT documented in this encounter Results * US OB GROWTH (12/14/2024 11:17 AM EDT) Anatomical Region Laterality Modality Other 12/14/2024 11:1 7 AM EDT Narrative 12/14/2024 11:19 AM EDT The [address] [address] Ultrasound Report Signed Patient: HESHAM TAYLOR MR#: [id number] : 2000 Acct:[id number] Age/Sex: 24 / F ADM Date: 12/14/24 Loc: US Attending Dr: Rebeca Hidalgo D.O. Ordering Physician: Rebeca Hidalgo D.O. Date of Service: 12/14/24 Procedure(s): US OB growth Accession Number(s): [id number] cc: Rebeca Hidalgo D.O.; DAYANA PENA [place] [address] Patient Name: HESHAM TAYLOR MRN: [id number] date: 2000 Sex: F Assigned Patient Location: US Current Patient Location: US Accession/Order Number: [id number] Exam Date: 12/14/2024 09:50 Report Date: 12/14/2024 11:17 At the request of: REBECA HIDALGO DO Procedure: US OB growth US OB growth 12/14/2024 10:10 AM SIGNS AND SYMPTOMS: EXCESSIVE GROWTH O36.63X0 COMPARISON: None. TECHNIQUE: Limited pelvic ultrasound using transvesical sonography. FINDINGS: An intrauterine is identified. The fetus has an estimated gestational age of 35 weeks and 2 days by measurements which is advanced compared to the estimated gestational age of 31 weeks and 5 days based on dates. A heart rate is identified at 147 bpm. A normal amount of amniotic fluid is present. There is no evidence for placenta previa or subchorionic hemorrhage. Pelvic survey reveals no gross abnormalities. US/US OB growth IMPRESSION: Single live IUP. The fetus has an estimated gestational age of 35 weeks and 2 days by measurements which is advanced compared to the estimated gestational age of 31 weeks and 5 days based on dates. Impression dictated by: Wilfrido Atkinson M.D. 12/14/2024 11:17 AM Dictation Location: [employer] Electronically authenticated by: [id number] Y Date: 12/14/2024 11:17 Dictated By: Wilfrido Atkinson M.D. Signed By: 12/14/24 1119 DD/ 1117 TD/TT: Meeting Planner: Procedure Note Radiology, Radiologist, - 12/14/2024 [place] [address] Ultrasound Report Signed Patient: HESHAM TAYLOR AMR#: [id number] : 2000Acct:[id number] Age/Sex: 24 / FADM Date: 12/14/24 Loc: US Attending Dr: Rebeca Hidalgo D.O. Ordering Physician: Rebeca Hidalgo D.O. Date of Service: 12/14/24 Procedure(s): US OB growth Accession Number(s): [id number] cc: Rebeca Hidalgo D.O.; DAYANA PENA The [place] [id number] Patient Name: HESHAM TAYLOR MRN: [id number] date: 2000 Sex: F Assigned Patient Location: Current Patient Location: US Accession/Order Number: [id number] Exam Date: 12/14/2024 09:50 Report Date: 12/14/2024 11:17 At the request of: REBECA HIDALGO DO Procedure: US OB growth US OB growth 12/14/2024 10:10 AM SIGNS AND SYMPTOMS: EXCESSIVE GROWTH O36.63X0 COMPARISON: None. TECHNIQUE: Limited pelvic ultrasound using transvesical sonography. FINDINGS: An intrauterine is identified. The fetus has an estimated gestational age of 35 weeks and 2 days by measurements which is advanced compared to the estimated gestational age of 31 weeks and 5 days based on dates. A heart rate is identified at 147 bpm. A normal amount of amniotic fluid is present. There is no evidence for placenta previa or subchorionic hemorrhage. Pelvic survey reveals no gross abnormalities. US/US OB growth IMPRESSION: Single live IUP. The fetus has an estimated gestational age of 35 weeks and 2 days by measurements which is advanced compared to the estimated gestational ageof 31 weeks and 5 days based on dates. Impression dictated by: Wilfrido Atkinson M.D. 12/14/2024 11:17 AM Dictation Location: [id number] Electronically authenticated by: [id number] Y Date: :17 Dictated By: Wilfrido Atkinson M.D. Signed By:12/14/24 1119 DD/ 1117 TD/TT: Meeting Planner: us Generic External Data Provider [facility] Final Result documented in this encounter Visit Diagnoses Not on filedocumented in this encounter Care Teams Life Skills Consultant Relationship Specialty Start Date End Date Dayana Pena MD [address] [place], [place] [phone] PCP - General Family Medicine 05/03/23 Stephanie Sotelo NP [address] [place], [place] [phone] PCP - Carloz Eduardo 07/16/24 documented as of this encounter
--- OUTSIDE RECORDS SUMMARY | 2024-12-27 11:21 | XMS_ITS | Clinical Summary ---
Author Organization [facility] Address [address] [place] [address] Care Team Providers Care Chief Nurse Executive Name Role Phone Taisha Pena MD Primary Care Provider [phone] Stephanie Sotelo PSYCHOLOGY FELLOW Unavailable [phone] Allergies No known active allergies Medications Jzbfojcd-Fwm-Vx- FA (PRE- PO) Take 1 each by mouth Daily Active Ferrous Gluconate (IRON 27 PO) Take 1 each by mouth Daily Active Active Problems Problem Noted Date Diagnosed Date History of placental abnormality 12/24/2024 Estimated Date of Delivery Comme nts Yes 02/10/2025 Based on last me nstrual period of 05/06/2024 Resolved Problems Problem Noted Date Diagnosed Date Resolved Date Obesity affecting in second trimester ([facility]) 01/27/2023 04/25/2023 Velamentous insertion of umb ilical cord in second trimester ([facility]) 01/27/2023 04/25/2023 Encounters Date Type Department Care Team Description 12/24/2024 10:00 [place] [phone] Rebeca Hidalgo DO Third trimester ([facility]); 33 weeks gestation of ([facility]); History of placental abnormality; Excessive growth affecting management of , antepartum, single or unspecified fetus ([facility]) 12/24/2024 [place] [address] Rebeca Hidalgo, 12/14/2024 Clinisync Result Encounter NOMS External Department Unsolicited Provider, Generic External Data 12/12/2024 10:10 AM EDT Routine [facility] [address] [facility] [place] [address] Kathie Lee PA Third trimester ([facility]); 31 weeks gestation of ([facility]) 12/12/2024 Bamboo flowsheet [facility] [address] [place] [address] Kathie Lee PA 11/28/2024 8:30 AM EDT Routine [facility] [place] [address] Rebeca Hidalgo DO Third trimester ([facility]); 29 weeks gestation of ([facility]); History of placental abnormality; Excessive growth affecting management of in third trimester, single or unspecified fetus ([facility]) 11/28/2024 Bamboo flowsheet [facility] Martel [facility] [place] [address] Rebeca Hidalgo DO 11/16/2024 Clinisync Result Encounter NOMS External Department Unsolicited Provider, Generic External Data 11/14/2024 11:20 AM EDT Routine [facility] [place] [facility] [place] [address] Kathie Lee PA Second trimester ([facility]); 27 weeks gestation of ([facility]) 11/14/2024 Bamboo flowsheet [facility] ARIASGYNikole [facility] [place] [address] Kathie Lee PA 11/09/2024 Travel 10/28/2024 Abstract [facility] [address] Rebeca Hidalgo DO 10/17/2024 8:10 AM EDT Routine [facility] [place] [address] Rebeca Hidalgo DO Second trimester ([facility]); 23 weeks gestation of ([facility]); Diabetes mellitus screening 10/17/2024 Bamboo flowsheet [facility] [address] Rebeca Hidalgo DO from Last 3 Months [...] week 05/17/2023 How often do you attend [facility] or anglican services? 1 to 4 times per year [...] Recorded Patient Health Questionnaire-2 Score 0 05/24/2023 [facility] [place] of Occupat ional Health - Occupational Stress [...] place to sleep or slept in a penitentiary (including now)? No 05/17/2023 Estimated Date of [...] Pressure 124/70 12/24/2024 10:07 AM EDT Pulse 63 05/24/2023 2:05 PM EST Temperature - - Respiratory Rate 20 05/24/2023 2:05 PM EST Oxygen Saturation 96% 05/24/2023 2:05 PM EST Inhaled Oxygen Concentration - - Weight 104 kg (229 lb) 12/24/2024 10:07 AM EDT Height 162.6 cm (5' 4 ) 11/21/2023 2:10 PM EDT Body Mass Index 39.31 11/21/2023 2:10 PM EDT Plan of Treatment Upcoming Encounters Date Type Department Care Team (Late st Contact Info) Description 01/06/2025 10:20 AM EDT Routine [facility] [address] [facility] [place] [address] Kathie Lee PA [address] [facility] [place] [address] Health Maintenance Due Date Last Done Comments Influenza Vaccine (#1) 2024 02/01/2021 Procedures Procedure Name Priority Date/Time Associated Diagnosis Comments POCT URINALYSIS DIPSTICK Routine 12/24/2024 10:13 AM EDT Third trimester ([facility]) US OB GROWTH 12/14/2024 11:17 AM EDT POCT URINALYSIS DIPSTICK Routine 12/12/2024 11:01 AM EDT Third trimester ([facility]) POCT URINALYSIS DIPSTICK Routine 11/28/2024 8:48 AM EDT Third trimester ([facility]) GLUCOSE 1 HOUR Routine 11/16/2024 10:06 AM EDT ALL CBC WITH AUTO DIFF Routine 11/16/2024 10:06 AM EDT POCT URINALYSIS DIPSTICK Routine 11/14/2024 11:35 AM EDT Second trimester ([facility]) POCT URINALYSIS DIPSTICK Routine 10/17/2024 9:01 AM EDT Second trimester ([facility]) from Last 3 Months Results * (ABNORMAL) POCT urinalysis dipstick manually resulted (12/24/2024 10:13 AM EDT) Only the most recent of5 [...] Positive Urine 12/24/2024 10:1 3 AM EDT us Rebeca Hidalgo DO POINT OF CARE TEST ENTER/EDIT OR DERABLES Final Result * US OB GROWTH (12/14/2024 11:17 AM EDT) Anatomical Region Laterality Modality Other 12/14/2024 11:1 7 AM EDT Narrative 12/14/2024 11:19 [place] [address] Ultrasound Report Signed Patient: HESHAM TAYLOR MR#: [id number] : 2000 Acct:[id number] Age/Sex: 24 / F ADM Date: 12/14/24 Loc: US Attending Dr: Rebeca Hidalgo D.O. Ordering Physician: Rebeca Hidalgo D.O. Date of Service: 12/14/24 Procedure(s): US OB growth Accession Number(s): [id number] cc: Rebeca Hidalgo D.O.; TAISHA PENA The [place] [id number] Patient Name: HESHAM TAYLOR MRN: [id number] date: 2000 Sex: F Assigned Patient Location: US Current Patient Location: Accession/Order Number: [id number] Exam Date: 12/14/2024 09:50 Report Date: 12/14/2024 [...] Atkinson M.D. 12/14/2024 11:17 AM Dictation Location: [place] [address] Electronically authenticated by: [id number] Y Date: 12/14/2024 11:17 Dictated By: Wilfrido Atkinson M.D. Signed By: 12/14/24 1119 DD/ 1117 TD/TT: Community Relations Coordinator: Procedure Note Radiology, Radiologist, MD - 12/14/2024 [place] [address] Ultrasound Report Signed Patient: HESHAM TAYLOR AMR#: [id number] : 2000Acct:[id number] Age/Sex: 24 / FADM Date: 12/14/24 Loc: US Attending Dr: Rebeca Hidalgo D.O. Ordering Physician: Rebeca Hidalgo D.O. Date of Service: 12/14/24 Procedure(s): US OB growth Accession Number(s): [id number] cc: Rebeca Hidalgo D.O.; TAISHA PENA [place] [address] Patient Name: HESHAM TAYLOR MRN: [facility]:[id number] date: 2000 Sex: F Assigned Patient Location: US Current Patient Location: US Accession/Order Number: [id number] Exam Date: 12/14/2024 09:50 Report Date: 12/14/2024 [...] Atkinson M.D. 12/14/2024 11:17 AM Dictation Location: [place] [address] Electronically authenticated by: [id number] Y Date: 1:17 Dictated By: Wilfrido Atkinson M.D. Signed By:12/14/24 1119 DD/ 1117 TD/TT: Community Relations Coordinator: us [facility] External Data Provider [facility] Final Result * GLUCOSE 1 HOUR (11/16/2024 10:06 AM EDT) GLUCOSE 1 HOUR 120 <130 mg/dL TB 11/16/2024 10:0 6 AM EDT 11/16/2024 10:07 AM EDT Narrative LAURA - 11/16/2024 10:45 AM EDT us Rebeca Hidalgo DO LAB BLOOD ORDERABLES Final [facility]ul [facility] * (ABNORMAL) ALL CBC WITH AUTO DIFF (11/16/2024 10:06 AM EDT) TB WBC 9.0 4.0 - 11.0 10 3/uL [...] Narrative [facility] - 11/16/2024 10:30 AM EDT Rebeca Hidalgo DO [facility] Final Result [facility] from Last 3 Months Insurance [facility] Care Teams Chief Nurse Executive Relationship Specialty Start Date End Date Taisha Pena MD [address] [place], [place] [phone] PCP - General Family Medicine 05/03/23 Stephanie Sotelo NP [address] [place], [place] [address] PCP - [place] Jayce 07/16/24
--- OUTSIDE RECORDS SUMMARY | 2024-12-27 11:21 | XMS_ITS | Clinical Summary ---
Author Organization [facility] Address [id number] [place] [address] Care Team Providers Care Graduate Fellow Name Role Phone Unavailable Primary Care Provider Unavailabl e Allergies Active Allergy Reactions Criticality Noted Date Comments No Known Drug Allergies 05/29/2017 Medications [id number]-io lic-om3 25 mg iron-1 mg -400 mg combo pack Take by mouth. A ctive ferrous sulfate (HIGH POTENCY IRON) 27 mg iron tablet Take by mouth. Activ e [id number]-[id number]-hk lic-om3 (DUET DHA WITH OMEGA-3) 25 mg [...] Type Department Care Team Description 10/24/2024 Travel from Last 3 Months Immunizations Immunization [...] often do you attend chur ch or judaism services? Never 01/31/2021 Do you belong to [...] Answer Date Recorded Total Score 6 01/31/2021 [facility] of Occupat ional Health - Occupational [...] Recorded Do you need help finding a [facility] career center and/or a training program? No [...] 2018 Chlamydia Screening 11/10/2023 11/09/2022 COVID-19 Vaccine (2024-05 6 season) 2024 06/03/2021, 05/13/2021 Influenza Vaccine 12/16/2024 02/01/2021, 02/01/2021 Adult BMI Screening 09/23/2025 09/23/2024 Tobacco Screening 09/23/2025 09/23/2024 Pap Smear 11/09/2025 11/09/2022 DTaP,Tdap and Td Vaccines (6 - Tdap) 12/19/2030 12/19/2020, 12/08/2004, 03/23/2001, Additional history exists Medical Devices Not on file Procedures Procedure Name Priority Date/Time Associated Diagnosis Comments US MFM OB FOLLOW-UP, 1 FETUS Routine 10/24/2024 2:23 PM EDT Polyhydramnios affecting Low-lying placenta Placenta previa in second trimester Velamentous insertion of umbilical cord in second trimester Vasa previa, single or unspecified fetus History of hemorrhage, currently in second trimester CHLAMYDIA/GC BY PCR ELISABETH SWAB Routine 11/09/2022 from Last 3 Months or Most Recently Relevant to Health Maintenance Results * [facility] OB FOLLOW-UP, 1 FETUS (10/24/2024 2:23 PM EDT) Anatomical Region Laterality Modality OB-SENSOR OPERATOR Ultrasound 10/24/2024 12:5 8 PM EDT Narrative 10/25/2024 12:56 PM EDT NAME: CLAUDIA DAHL : 2000 SEX: F Accession Number: [id number] ORDERING PHYSICIAN: CINTIA BANEGAS REFERRING PHYSICIAN: REBECA PACE Coding ----- --------- Procedures 23370: Follow-up Ultrasound, per fetus Indication ----- --------- [...] EFW (oz) 15 oz EFW by: Hadlock ([id number]) Extended Tibia 40.1 mm 25w 2d 74% Heri Perl Programmer 4.7 mm CM 7.6 mm 89% Nicolaides [...] view. RVOT view. LVOT view. 3-vessel view. 4-wdpqvk-szxlepf view. Situs. Aortic arch view. Bicaval view. [...] primary OB provider unless otherwise specified by MFM. Results forwarded to ordering provider so they can follow up with the patient as necessary. Procedure Note Daniella Reina MD - 10/25/2024 NAME: CLAUDIA DAHL : 2000 SEX: F Accession Number: [id number] ORDERING PHYSICIAN: CINTIA BANEGAS REFERRING PHYSICIAN: REBECA PACE Coding ----- --------- Procedures 22454: Follow-up Ultrasound, per fetus Indication ----- --------- [...] EFW (oz) 15 oz EFW by: Hadlock (HGJ-[id number]-[id number]-FL) Extended Tibia 40.1 mm 25w 2d 74% Heri Perl Programmer 4.7 mm CM 7.6 mm 89% Nicolaides [...] 4-chamber view. RVOT view. LVOT view. 3-vessel view.5-xegqlf-tvhnuqm view. Situs. Aortic arch view. Bicaval view. [...] thepatient as necessary. us Cintia Banegas MD [facility] US ORDERABLES Final Resul t * Chlamydia/GC by PCR Elisabeth Swab (11/09/2022) Chlamydia Dna(Pcr) negative MANUALLY TRANSCRIBED RESULTS Gonorrhoeae Dna(Pcr) negative MANUALLY TRANSCRIBED RESULTS us Not In System Ref Prov MICROBIOLOGY - GENERAL OR DERABLES Final Result MANUALLY TRANSCRIBED RESULTS from Last 3 Months or Most Recently Relevant to Health Maintenance Insurance ANTH
--- OUTSIDE RECORDS SUMMARY | 2024-12-27 11:21 | XMS_ITS | Encounter Summary ---
Author Organization [facility] Address [address] [place] [address] Care Team Providers Care Trim Installer Name Role Phone Taisha Ortiz MD Primary Care Provider [phone] Stephanie Sotelo SHOWER MAID Unavailable [phone] Encounter Details Date Type Department Care Team (Late st Contact Info) Description 09/24/2024 Abstract [facility]ole [address] [place] [address] [place] [address] [place], [place] Social History Tobacco Use Types Packs/Day [...] often do you attend chur ch or synagogue services? 1 to 4 times per year 05/17/2023 Do you belong to any clubs o r organizations such as holiness groups, unions, fraternal or athletic groups, or [...] Recorded Patient Health Questionnaire-2 Score 0 05/24/2023 [facility] - Occupational Stress Questionnaire Answer [...] 01/06/2025 10:20 AM EDT Routine [facility] JAVIER [address] [facility] [address] Kathie Lee PA [address] [facility] [address] documented as of this encounter Visit Diagnoses Not on filedocumented in this encounter Care Teams Trim Installer Relationship Specialty Start Date End Date Taisha Ortiz MD [address] [place] [address] PCP - General Family Medicine 05/03/23 Stephanie Sotelo NP [address] [place] [address] PCP - Todd Mission Commercial 07/16/24 documented as of this encounter
--- OUTSIDE RECORDS SUMMARY | 2024-12-27 11:21 | XMS_ITS | Encounter Summary ---
Author Organization [facility] Address [address] [place] [address] Care Team Providers Care Control Panel Assembler Name Role Phone Taisha Ortiz MD Primary Care Provider [phone] Stephanie Sotelo CONSUMER RELATIONS COMPLAINT CLERK Unavailable [phone] Encounter Details Date Type Department Care Team (Late st Contact Info) Description 12/24/2024 Bamboo flowsheet [facility] O[facility] [address] [facility] [place] [address] Don Hidalgo DO [address] [facility] [address] [place], [place] [address] Social History Tobacco Use Types Packs/Day Years [...] often do you attend chur ch or sabianism services? 1 to 4 times per year 05/17/2023 Do you belong to any clubs o r organizations such as buddhism groups, unions, fraternal or athletic groups, or [...] Recorded Patient Health Questionnaire-2 Score 0 05/24/2023 [facility] [place] - [facility] Questionnaire Answer Date Recorded [...] AM EDT Routine [facility] T[facility] JAVIER [address] [facility] [place] [address] Kathie Lee PA [address] [facility] [place] [address] documented as of this encounter Visit Diagnoses Not on filedocumented in this encounter Care Teams Control Panel Assembler Relationship Specialty Start Date End Date Taisha Ortiz MD [address] [place] [address] PCP - General Family Medicine 05/03/23 Stephanie Sotelo NP [address] [place] [address] PCP - Carloz Eduardo 07/16/24 documented as of this encounter
--- OUTSIDE RECORDS SUMMARY | 2024-12-27 11:21 | XMS_ITS | Encounter Summary ---
Author Organization [facility] Address [address] [place] [address] Care Team Providers Care Piercing Machine Operator Name Role Phone Taisha Ortiz MD Primary Care Provider [phone] Stephanie Sotelo NEEDLEMAKER Unavailable [phone] Encounter Details Date Type Department Care Team (Late st Contact Info) Description 10/28/2024 Abstract [facility] [address] [facility] [place] [address] Don Hidalgo DO [address] [facility] [place] [address] Social History Tobacco Use Types Packs/Day Years [...] often do you attend chur ch or faith services? 1 to 4 times per year [...] Health Questionnaire-2 Score 0 05/24/2023 [facility] of Occupat ional [facility] - Occupational Stress Questionnaire Answer Date [...] AM EDT Routine [facility] JAVIER [address] [facility] [place] [address] Kathie Lee PA [address] [facility] [place] [address] documented as of this encounter Visit Diagnoses Not on filedocumented in this encounter Care Teams Piercing Machine Operator Relationship Specialty Start Date End Date Taisha Ortiz MD [address] [place] [address] PCP - General Family Medicine 05/03/23 Stephanie Sotelo NP [address] [place] [address] PCP - Carloz Eduardo 07/16/24 documented as of this encounter
--- OUTSIDE RECORDS SUMMARY | 2024-12-27 11:21 | XMS_ITS | Encounter Summary ---
Author Organization [facility] Address [address] [place] [address] Care Team Providers Care Fountain Vending Mechanic Name Role Phone Taisha Ortiz MD Primary Care Provider [phone] Stephanie Sotelo PLATER APPRENTICE Unavailable [phone] Encounter Details Date Type Department Care Team (Late st Contact Info) Description 07/17/2024 Abstract [facility] [address] [facility] [place] [address] Don Hidalgo DO [address] [facility] [place] [address] Social History Tobacco Use Types Packs/Day Years [...] often do you attend chur ch or mandaen services? 1 to 4 times per year 05/17/2023 Do you belong to any clubs o r organizations such as yazidism groups, unions, fraternal or athletic groups, or [...] Recorded Patient Health Questionnaire-2 Score 0 05/24/2023 [facility] of Occupat ional [facility] - Occupational Stress Questionnaire Answer Date [...] place to sleep or slept in a intermediate (including now)? No 05/17/2023 Estimated Date of [...] AM EDT Routine [facility] J[facility] [address] [facility] [place] [address] Kathie Lee PA [address] [facility] [place] [address] documented as of this encounter Visit Diagnoses Not on filedocumented in this encounter Care Teams Fountain Vending Mechanic Relationship Specialty Start Date End Date Taisha Ortiz MD [address] [place] [address] PCP - General Family Medicine 05/03/23 Stephanie Sotelo NP [address] [place] [address] PCP - Carloz Eduardo 07/16/24 documented as of this encounter
--- OUTSIDE RECORDS SUMMARY | 2024-12-27 11:21 | XMS_ITS | Encounter Summary ---
Author Organization [facility] Address [address] [place] [address] Care Team Providers Care Printing Worker Supervisor Name Role Phone Taisha Ortiz MD Primary Care Provider [phone] Stephanie Sotelo SAMPLE MAKER Unavailable [phone] Encounter Details Date Type Department Care Team (Late Contact Info) Description 12/08/2022 Abstract [facility] JAVIER [address] [facility] [address] Kathie Lee PA [address] [place] [address] Dr [place], [facility] Social History Tobacco Use Types Packs/Day Years [...] Department Care Team (Late Contact Info) Description 01/06/2025 10:20 AM EDT Routine [facility] JAVIER [address] [place] [address] Kathie Lee, PA [address] [facility] [address] [place], [facility] documented as of this encounter Visit Diagnoses Not on filedocumented in this encounter Care Teams Printing Worker Supervisor Relationship Specialty Start Date End Date Taisha Ortiz MD [address] [place] [address] PCP - General Family Medicine 05/03/23 Stephanie Sotelo NP [address] [place] [address] PCP - Carloz Eduardo 07/16/24 documented as of this encounter
--- OUTSIDE RECORDS SUMMARY | 2024-12-27 11:21 | XMS_ITS | Encounter Summary ---
Author Organization [facility] Address [address] [place] [address] Care Team Providers Care Career Development Engineer Name Role Phone Taisha Ortiz MD Primary Care Provider [phone] Stephanie Sotelo CLINICAL COORDINATOR Unavailable [phone] Encounter Details Date Type Department Care Team (Late st Contact Info) Description 12/30/2022 Clinisync Result Encounter NOMS External Department Unsolicited Kathie Roman PA [address] [facility] [address] [place], [place] [phone] Social History Tobacco Use Types Packs/Day Years [...] AM EDT Routine [facility] [address] [facility] [place] [address] Kathie Roman PA [address] [place] [address] [place] [address] documented as of this encounter Procedures Procedure Name Priority Date/Time Associated Diagnosis Comments US OB TRANSVAGINAL 12/30/2022 5: 41 PM EDT documented in this encounter Results * US OB TRANSVAGINAL (12/30/2022 5:41 PM EDT) Anatomical Region Laterality Modality Other 12/30/2022 5:41 PM EDT Narrative 12/30/2022 5:41 [place] [address] Ultrasound Report Signed Patient: HESHAM TAYLOR MR#: [id number] : 2000 Acct:[id number] Age/Sex: 22 / F ADM Date: 12/30/22 Loc: US Attending Dr: Kathie Roman Ordering Physician: Kathie Roman Date of Service: 12/30/22 Procedure(s): US OB transvaginal Accession Number(s): [id number] cc: Kathie Roman; Physician,Non-Staff M.D. [place] [address] Patient Name: HESHAM TAYLOR MRN: [id number] date: 2000 Sex: F Assigned Patient Location: Current Patient Location: Accession/Order Number: [id number] Exam Date: 12/30/2022 07:55 Report Date: 12/30/2022 [...] M.D. Signed By: 12/30/221743 DD/ 40 TD/TT: Health Information Provider: Procedure Note Radiology, Radiologist, - 01/06/2023 [place] [address] Ultrasound Report Signed Patient: HESHAM TAYLOR AMR#: [id number] : 2000Acct:[id number] Age/Sex: 22 / FADM Date: 12/30/22 Loc: US Attending Dr: Kathie Roman Ordering Physician: Kathie Roman Date of Service: 12/30/22 Procedure(s): US OB transvaginal Accession Number(s): [id number] cc: Kathie Roman; Physician,Non-Staff AnnM-arie The [address] [address] Patient Name: HESHAM TAYLOR MRN: [id number] date: 2000 Sex: F Assigned Patient Location: US Current Patient Location: US Accession/Order Number: [id number] Exam Date: 12/30/2022 07:55 Report Date: 12/30/2022 [...] Souza M.D. Signed By:12/30/221743 DD/ 40 TD/TT: Health Information Provider: us Kathie COCH[facility]AN [facility] Final Result documented in this encounter Visit Diagnoses Not on filedocumented in this encounter Care Teams Career Development Engineer Relationship Specialty Start Date End Date Taisha Ortiz MD [address] [place], [place] [address] PCP - General Family Medicine 05/03/23 Stephanie Sotelo NP [address] [facility] [place], [place] [address] PCP - Carloz Eduardo 07/16/24 documented as of this encounter
--- OUTSIDE RECORDS SUMMARY | 2024-12-27 11:21 | XMS_ITS | Encounter Summary ---
Author Organization [facility] Address [address] [place] [address] Care Team Providers Care Physician Asst Name Role Phone Taisha Ortiz MD Primary Care Provider Stephanie Sotelo GAS ENGINE OPERATOR Unavailable [phone] Encounter Details Date Type Department Care Team (Late st Contact Info) Description 12/30/2022 Clinisync Result Encounter [facility] External Department Unsolicited Kathie Roman PA [address] [facility] [address] [place], [place] [id number] Social History Tobacco Use Types Packs/Day Years [...] Routine [facility] Tj JAVIER [address] [place] [id number] Kathie Roman PA [address] [place] [address] [place] [address] documented as of this encounter Procedures Procedure Name Priority Date/Time Associated Diagnosis Comments US OB ANATOMY 12/30/2022 5:41 PM EDT documented in this encounter Results * US OB ANATOMY (12/30/2022 5:41 PM EDT) Anatomical Region Laterality Modality Other 12/30/2022 5:41 PM EDT Narrative 12/30/2022 5:41 [place] [address] Ultrasound Report Signed Patient: HESHAM TAYLOR MR#: [id number] : 2000 Acct:[id number] Age/Sex: 22 / F ADM Date: 12/30/22 Loc: US Attending Dr: Kathie Roman Ordering Physician: Kathie Roman Date of Service: 12/30/22 Procedure(s): US OB anatomy Accession Number(s): [id number] cc: Kathie Roman; Physician,Non-Staff M.D. [place] [id number] Patient Name: HESHAM TAYLOR MRN: [id number] date: 2000 Sex: F Assigned Patient Location: Current Patient Location: Accession/Order Number: [id number] Exam Date: 12/30/2022 07:55 Report Date: 12/30/2022 [...] M.D. Signed By: 12/30/221743 DD/ 40 TD/TT: Plastic Worker: Procedure Note Radiology, Radiologist, MD - 01/06/2023 [facility] [place] [id number] Ultrasound Report Signed Patient: HESHAM TAYLOR AMR#: [id number] : 2000Acct:[id number] Age/Sex: 22 / FADM Date: 12/30/22 Loc: US Attending Dr: Kathie Roman Ordering Physician: Kathie Roman Date of Service: 12/30/22 Procedure(s): US OB anatomy Accession Number(s): [id number] cc: Kathie Roman; Physician,Non-Staff Ann[place]Marie The [address] [address] Patient Name: HESHAM TAYLOR MRN: [id number] date: 2000 Sex: F Assigned Patient Location: US Current Patient Location: US Accession/Order Number: [id number] Exam Date: 12/30/2022 07:55 Report Date: 12/30/2022 [...] Souza M.D. Signed By:12/30/221743 DD/ 40 TD/TT: Plastic Worker: us Kathie [facility]AN [facility] Final Result documented in this encounter Visit Diagnoses Not on filedocumented in this encounter Care Teams Physician Asst Relationship Specialty Start Date End Date Taisha Ortiz MD [address], [place] [id number] PCP - General Family Medicine 05/03/23 Stephanie Sotelo NP [address] [place] [address] PCP - Carloz Eduardo 07/16/24 documented as of this encounter
--- OUTSIDE RECORDS SUMMARY | 2024-12-27 11:21 | XMS_ITS | Encounter Summary ---
Author Organization [facility] Address [address] [place] [address] Care Team Providers Care Concentrator Operator Name Role Phone Taisha Ortiz MD Primary Care Provider [phone] Stephanie Sotelo ACCOUNT DEVELOPER Unavailable [phone] Encounter Details Date Type Department Care Team (Late st Contact Info) Description 09/23/2024 External Result Encounter [facility] T[facility]BG[facility] [address] [facility] [place] [phone] Rebeca Hidalgo DO [address] [facility] [address] [place], [place] [address] Social History Tobacco Use Types Packs/Day Years [...] often do you attend chur ch or bahai services? 1 to 4 times per year [...] Recorded Patient Health Questionnaire-2 Score 0 05/24/2023 [facility] - Occupational Stress Questionnaire Answer Date Recorded [...] place to sleep or slept in a detention (including now)? No 05/17/2023 Estimated Date of [...] EDT Routine [facility]BG[facility] [address] [facility] [place] [address] Kathie Lee PA [address] [facility] [address] [facility] [place] [address] documented as of this encounter Procedures Procedure Name Priority Date/Time Associated Diagnosis Comments US OB 14+ WEEKS ANATOMY SCAN 09/23/2024 1:55 PM EDT documented in this encounter Results * US OB 14+ weeks anatomy scan (09/23/2024 1:55 PM EDT) Anatomical Region Laterality Modality Body Ultrasound 09/23/2024 1:55 PM EDT Narrative 09/23/2024 1:55 PM EDT THIS EXAM WAS PERFORMED AT [facility] NAME: CLAUDIA DAHL : 2000 SEX: F Accession Number: [id number] ORDERING PHYSICIAN: CINTIA BANEGAS REFERRING PHYSICIAN: REBECA HIDALGO Coding ----- --------- Procedures 91561: Ultrasound, uterus, real time with image documentation, and maternal evaluation plus detailed anatomic examination, transabdominal approach;single or first gestation 84383: Transvaginal Ultrasound (OB) Indication ----- --------- Screening [...] EFW (oz) 13 oz EFW by: Hadlock ([id number]) Extended Tibia 28.7 mm 20w 3d 71% Heri Surgery Tech 8.2 mm CM 5.6 mm 70% Nicolaides [...] Nose. Maxilla. Mandible. Orbits. Heart / Thorax 3-gkgvks-pnyvmzj view. Aortic arch view. Interventricular septum. Great [...] 3.91 cm. Recommendations ----- --------- Please see [facility] documentation from today. Follow-up in 4-6 weeks is scheduled for completion of the anatomic survey Subsequent follow up or other follow up as clinically determined by primary OB provider unless otherwise specified by [facility]. Results forwarded to ordering provider so they can follow up with the patient as necessary. The copy-to physician of this order is REBECA King The ordering physician of this order is CINTIA Hartmann Procedure Note Radiology, Radiologist, - 09/23/2024 THIS EXAM WAS PERFORMED AT [facility] NAME: CLAUDIA DAHL : 2000 SEX: F Accession Number: [id number] ORDERING PHYSICIAN: CINTIA BANEGAS REFERRING PHYSICIAN: REBECA HIDALGO Coding ----- --------- Procedures 23271: Ultrasound, uterus, real time with imagedocumentation, and maternal evaluation plus detailed anatomic examination, transabdominalapproach;single or first gestation 02026: Transvaginal Ultrasound (OB) Indication ----- --------- Screening [...] EFW (oz) 13 oz EFW by: Hadlock ([id number]) Extended Tibia 28.7 mm 20w 3d 71% Heri Surgery Tech 8.2 mm CM 5.6 mm 70% Nicolaides [...] Nose. Maxilla. Mandible. Orbits. Heart / Thorax 6-varicg-mpqpdae view. Aortic arch view. Interventricularseptum. Great vessels. [...] 3.91 cm. Recommendations ----- --------- Please see [facility] documentation from today. Follow-up in 4-6 weeks isscheduled for completion of the anatomic survey Subsequent follow up or other follow up as clinically determined byprimary OB provider unless otherwise specified by [facility]. Results forwarded to ordering provider so they can follow up with thepatient as necessary. The copy-to physician of this order is REBECA Kign The ordering physician of this order is CINTIA Hartmann us Rebeca Hidalgo DO IMG OB US PROCEDURES Final Resul t documented in this encounter Visit Diagnoses Not on filedocumented in this encounter Care Teams Concentrator Operator Relationship Specialty Start Date End Date Taisha Ortiz MD [address] [place] [address] PCP - General Family Medicine 05/03/23 Stephanie Sotelo NP [address] [place] [address] PCP - Carloz Eduardo 07/16/24 documented as of this encounter
--- OUTSIDE RECORDS SUMMARY | 2024-12-27 11:21 | XMS_ITS | Encounter Summary ---
Author Organization [facility] Address [address] [place] [address] Care Team Providers Care Irrigation Equipment Installer Name Role Phone Taisha Ortiz MD Primary Care Provider [phone] Stephanie Sotelo HOSE TURNER Unavailable [phone] Encounter Details Date Type Department Care Team (Late st Contact Info) Description 07/23/2024 Abstract [facility] [address] [facility] [place] [phone] Don Hidalgo DO [address] [facility] [place] [address] Social History Tobacco Use Types Packs/Day Years [...] often do you attend chur ch or mandaeism services? 1 to 4 times per year 05/17/2023 Do you belong to any clubs o r organizations such as anabaptism groups, unions, fraternal or athletic groups, or [...] Recorded Patient Health Questionnaire-2 Score 0 05/24/2023 [facility] - Occupational Stress Questionnaire Answer Date [...] place to sleep or slept in a [place] facility (including now)? No 05/17/2023 Estimated Date of [...] AM EDT Routine [facility] T[facility] [address] [facility] [place] [address] Kathie Lee PA [address] [facility] [place] [address] documented as of this encounter Visit Diagnoses Not on filedocumented in this encounter Care Teams Irrigation Equipment Installer Relationship Specialty Start Date End Date Taisha Ortiz MD [address] [place] [address] PCP - General Family Medicine 05/03/23 Stephanie Sotelo NP [address] [place] [address] PCP - Carloz Eduardo 07/16/24 documented as of this encounter
--- OUTSIDE RECORDS SUMMARY | 2024-12-27 11:21 | XMS_ITS | Encounter Summary ---
Author Organization [facility] Address [address] [place] [address] Care Team Providers Care Back Office Medical Assistant Name Role Phone Taisha Ortiz MD Primary Care Provider [phone] Stephanie Sotelo ASSISTANT FLOOR COVERING PRINTER Unavailable [phone] Encounter Details Date Type Department Care Team (Late Contact Info) Description 04/19/2023 Clinisync Result Encounter [facility] External Department Unsolicited Rebeca Hidalgo DO [address] [place], [facility] Social History Tobacco Use Types Packs/Day Years [...] Orientation Straight 10/07/2022 12 :02 PM EDT COVID-19 Exposure Response Date Recorded In the last 10 days, have yo u been in contact with someone who was confirmed or suspected to have Coronavirus/COVID-19? No / Unsure 03/23/2023 11:16 AM EST documented as of this encounter Plan of Treatment Upcoming Encounters Date Type Department Care Team (Late st Contact Info) Description 01/06/2025 10:20 AM EDT Routine [facility] [address] [place] [address] Kathie Lee PA [address] [facility] [place] [address] documented as of this encounter Procedures Procedure Name Priority Date/Time Associated Diagnosis Comments US OB BPP W NON-STRESS 04/19/2023 9:34 AM EST documented in this encounter Results * US OB BPP W NON-STRESS (04/19/2023 9:34 AM EST) Anatomical Region Laterality Modality Other 04/19/2023 9:34 AM EST Narrative 04/19/2023 9:37 AM EST [address] [address] Ultrasound Report Signed Patient: HESHAM TAYLOR MR#: [id number] : 2000 Acct:[id number] Age/Sex: 22 / F ADM Date: 04/19/23 Loc: [facility] 250-[address]: Kathie Lee Ordering Physician: Rebeca Hidalgo D.O. Date of Service: 04/19/23 Procedure(s): US OB BPP w non-stress Accession Number(s): [id number] cc: Rebeca Hidalgo D.O.; Physician,Non-Staff M.DIsreal The [address] [address] Patient Name: HESHAM TAYLOR MRN: [id number] date: 2000 Sex: F Assigned Patient Location: [facility] Current Patient Location: [facility] Accession/Order Number: [id number] Exam Date: 04/19/2023 09:00 Report Date: 04/19/2023 09:34 At the request of: REBECA HIDALGO Procedure: US OB BPP w non-stress EXAMINATION: US OB BPP w non-stress HISTORY: lga COMPARISON: No relevant comparison available. TECHNIQUE: Ultrasound biophysical profile was performed in the radiology department. FINDINGS: BREATHING MOVEMENTS: 2.0 GROSS BODY MOVEMENTS: 2.0 TONE: 2.0 QUALITATIVE AMNIOTIC FLUID VOLUME: 2.0 PRESENTATION: CEPHALIC HEART RATE: 150.8 bpm H.B./min AMNIOTIC FLUID VOLUME: 16.0 cm cm GESTATIONAL AGE: 37 weeks 2 days CONCLUSION: Total biophysical profile score: 8.0 Electronically authenticated by: STU DE SOUZA Date: 04/19/2023 09:34 Dictated By: Stu De Souza M.D. Signed By: 04/19/23936 DD/ 3 TD/TT: Coupon And Bond Collection Clerk: Procedure Note Radiology, Radiologist, MD - 04/19/2023 [place] [address] Ultrasound Report Signed Patient: HESHAM TAYLOR AMR#: [id number] : 2000Acct:[id number] Age/Sex: 22 / FADM Date: 04/19/23 Loc: [facility] 250-[address]: Kathie Lee Ordering Physician: Rebeca Hidalgo D.O. Date of Service: 04/19/23 Procedure(s): US OB BPP w non-stress Accession Number(s): [id number] cc: Rebeca Hidalgo D.O.; Physician,Non-Staff Ann[facility]Marie The [place] [id number] Patient Name: HESHAM TAYLOR MRN: [id number] date: 2000 Sex: F Assigned Patient Location: [facility] Current Patient Location: [facility] Accession/Order Number: [id number] Exam Date: 04/19/2023 09:00 Report Date: 04/19/2023 09:34 At the request of: REBECA HIDALGO Procedure: US OB BPP w non-stress EXAMINATION: US OB BPP w non-stress HISTORY: lga COMPARISON: No relevant comparison available. TECHNIQUE: Ultrasound biophysical profile was performed in the radiology department. FINDINGS: BREATHING MOVEMENTS: 2.0 GROSS BODY MOVEMENTS: 2.0 TONE: 2.0 QUALITATIVE AMNIOTIC FLUID VOLUME: 2.0 PRESENTATION: CEPHALIC HEART RATE: 150.8 bpm H.B./min AMNIOTIC FLUID VOLUME: 16.0 cm cm GESTATIONAL AGE: 37 weeks 2 days CONCLUSION: Total biophysical profile score: 8.0 Electronically authenticated by: STU DE SOUZA Date: 04/19/2023 09:34 Dictated By: Stu De Souza M.D. Signed By:04/19/23936 DD/ 3 TD/TT: Coupon And Bond Collection Clerk: us Rebeca Rocky DO [facility] Final Result documented in this encounter Visit Diagnoses Not on filedocumented in this encounter Care Teams Back Office Medical Assistant Relationship Specialty Start Date End Date Taisha Ortiz MD [address] [place] [address] PCP - General Family Medicine 05/03/23 Stephanie Sotelo NP [address] [place] [address] PCP - Carloz Eduardo 07/16/24 documented as of this encounter
[2024-12-27 11:23] VITALS: BP 128/52; PULSE 111
--- OUTSIDE RECORDS SUMMARY | 2024-12-27 11:40 | XMS_ITS | CCD ---
Author Organization [facility] Care Team Providers Care Auto Polisher Name Role Phone DR DON HIDALGO Admitting [...] Unavailable ROCKY, Don R Referring Unavailable Ashleigh RAIL BENDER, Stephanie Villagran Unavailable ROCKY, DON R Referring Unavailable ROCKY, DON Attending Unavailable ROCKY, DON Attending Unavailable JESUS, KATHIE Attending Unavailable ROCKY, DON Attending Unavailable JESUS, KATHIE Attending Unavailable ROCKY, DON Attending Unavailable JESUS, KATHIE Attending Unavailable ROCKY, DON Attending Unavailable Medications Current Medications Medication Drug [...] procedure, # 2 cap(s), Refills(s) 0, Pharmacy: [facility] [id number], 163, cm, 08/05/24 13:19:00 EDT, Height/Length Dosing, [...] mg iron tablet Take by mouth. Active Apnejz-BmRosv-Kzesq-FA-[place] 3 (Duet DHA 400) 25-1 & 400 MG misc (2 sources) Bqrydv-PnGoss-Wp lnl-KX-Oiyjn 3 (Duet DHA 400) 25-1 & 400 MG misc Take by mouth. 0 Active Izzxlpkm-Gmg-Sc-FA (PRE- PO) (20 sources) take 1 dose by mouth once daily Reckakmg-Qql-Gc-FA (PRE- PO) Take 1 each by mouth Daily Active Multivitamins (1 source) Start : 07-31 take 1 tablet by mouth once daily Multivitamins 1 tab(s), Oral, Daily, Refill(s) 0 Start Date: 07/31/24 Status: Ordered Repeat number: 1 dhq951-noga-rylke-h m3 (DUET DHA WITH OMEGA-3) 25 mg iron-1 mg -400 mg combo pack (4 sources) ypx404- yoyo-tkyuc-zx3 (DUET DHA WITH OMEGA-3) 25 mg iron-1 mg -400 mg combo pack Take by mouth. Active tki910- fgfh-nstxf-sc6 (DUET DHA WITH OMEGA-3) 25 mg iron-1 mg -400 mg combo pack Take by mouth. 0 Active jnt416-qbro-ylsrc-z m3 25 mg iron-1 mg -400 mg combo pack (4 sources) ctg681- dgko-vpzco-bt1 25 mg iron-1 mg -400 mg combo pack Take by mouth. Active fxh657- kshu-hvhma-ra3 25 mg iron-1 mg -400 mg combo [...] trimester] Onset: 10-24-2024 Episodic Other complications of (4 sources) Excessive growth affecting management of mother; [...] 07-23-2024 Episodic Other and delivery including normal (15 sources) First trimester ; Translations: [Encounter for [...] of ] 07-23-2024 Episodic Residual codes; unclassified (7 sources) H/O: Disorder; Translations: [Personal history of other complications of , childbirth and the puerperium] Onset: 12-24-2024 07-23-2024 Episodic Residual codes; unclassified (2 sources) [...] [31 weeks gestation of ] 12-12-2024 Episodic Residual codes; unclassified (2 sources) Gestation period, 33 weeks; Translations: [33 weeks gestation of ] 12-24-2024 Episodic Past or Other Problems Problem Classification [...] Range Facility Urinalysis macro (dipstick) panel (U)on 12-24-2024 Bilirubin, UA Negative Negative - 4(70) +++ mg/dL [facility] Blood, UA Negative Negative - 50 Eulogio/mcL [facility] Clarity, UA Clear [facility] re Color, UA Yellow [facility] Glucose, UA Negative Negative - 1999(110) ++++ mg/dL [facility] Interpretation and review of laboratory results Abnormal [facility] Ketones, UA Negative Negative - 160(16) ++++ mg/dL [facility] Leukocytes, UA Negative Negative - 500+++ Rufina/mcL [facility] Nitrite, UA Negative Negative - Positive [facility] pH, UA 6.5 5 - 9 [facility] e Protein, UA 1+ Negative - 1999(20) ++++ mg/dL [facility] Spec Grav, UA 1.015 1 - 1.03 [facility] Urobilinogen, UA 1.0 0.2 - 12 mg/dL [facility] OB GROWTHon 12-14-2024 [place] [address] Ultrasound Report Signed Patient: HESHAM AVALOS MR#: [id number] : 2000 Acct:[id number] Age/Sex: 24 / F ADM Date: 12/14/24 Loc: US Attending Dr: Don Hidalgo D.O. Ordering Physician: Don Hidalgo D.O. Date of Service: 12/14/24 Procedure(s): US OB growth Accession Number(s): [id number] cc: Don Hidalgo D.O.; TAISHA PENA The [place] [id number] Patient Name: HESHAM AVALOS MRN: [facility]:[id number] date: 2000 Sex: F Assigned Patient Location: US Current Patient Location: US Accession/Order Number: [id number] Exam Date: 12/14/2024 09:50 Report Date: 12/14/2024 11:17 At the request of: DON HIDALGO DO Procedure: US OB growth US [...] Atkinson M.D. 12/14/2024 11:17 AM Dictation Location: [place] [address] Electronically authenticated by: [id number] Y Date: 12/14/2024 11:17 Dictated By: Wilfrido Atkinson M.D. Signed By: 12/14/24 1119 DD/ 1117 TD/TT: Field Installation Technician: [facility] Radiology, Radiologist, - 12/14/[address] [address] Ultrasound Report Signed Patient: HESHAM AVALOS MR#: [id number] : 2000 Acct:[id number] Age/Sex: 24 / F ADM Date: 12/14/24 Loc: US Attending Dr: Don Hidalgo D.O. Ordering Physician: Don Hidalgo D.O. Date of Service: 12/14/24 Procedure(s): US OB growth Accession Number(s): [id number] cc: Don Hidalgo D.O.; TAISHA PENA [place] [address] Patient Name: HESHAM AVALOS MRN: [facility]:[id number] date: 2000 Sex: F Assigned Patient Location: US Current Patient Location: US Accession/Order Number: [id number] Exam Date: 12/14/2024 09:50 Report Date: 12/14/2024 11:17 At the request of: DON HIDALGO DO Procedure: US OB growth US [...] Atkinson M.D. 12/14/2024 11:17 AM Dictation Location: [place] [address] Electronically authenticated by: [id number] Y Date: 12/14/2024 11:17 Dictated By: Wilfrido Atkinson M.D. Signed By: 12/14/24 1119 DD/ 1117 TD/TT: Field Installation Technician: [facility] Radiology Study observation (narrative) [facility] US OB GROWTHOrdered By: Nini ologist Radiology on 12-14-2024 [facility] Work Phone: Urinalysis macro (dipstick) panel (U)on 12-12-2024 Bilirubin, UA Negative Negative - 4(70) +++ mg/dL [facility] Blood, UA Negative Negative - 50 Eulogio/mcL [facility] Healthcare Clarity, UA Clear [facility] re Color, UA Hattie [facility] Glucose, UA Negative Negative - 1999(110) ++++ mg/dL [facility] Interpretation and review of laboratory results Abnormal [facility] Ketones, UA Negative Negative - 160(16) ++++ mg/dL [facility] Leukocytes, UA Positive Negative - 500+++ Rufina/mcL [facility] Comment on above: Trace Nitrite, UA Negative Negative - Positive [facility] pH, UA 6 5 - 9 [facility] Protein, UA Positive Negative - 1999(20) ++++ mg/dL [facility] Comment on above: 1+ Spec Grav, UA 1.02 1 - 1.03 [facility] Urobilinogen, UA 0.2 0.2 - 12 mg/dL [facility] Urinalysis macro (dipstick) panel (U)on 11-28-2024 Bilirubin, UA 1+ Negative - 4(70) +++ mg/dL [facility] Blood, UA Negative Negative - 50 Eulogio/mcL [facility] Healthcare Clarity, UA Clear [facility] re Color, UA Yellow [facility] Glucose, UA Negative Negative - 1999(110) ++++ mg/dL [facility] Interpretation and review of laboratory results Abnormal [facility] Ketones, UA Negative Negative - 160(16) ++++ mg/dL [facility] Leukocytes, UA 1+ Negative - 500+++ Rufina/mcL [facility] Nitrite, UA Negative Negative - Positive [facility] pH, UA 6 5 - 9 [facility] Protein, UA 1+ Negative - 1999(20) ++++ mg/dL [facility] Spec Grav, UA 1.015 1 - 1.03 [facility] care Urobilinogen, UA 1.0 0.2 - 12 mg/dL [facility] ALL CBC WITH AUTO DIFFon BASOPHILS ABSOLUTE AUTO 0 [facility] Basophils/100 WBC (Bld) 0.2 % 0.2 - 2.0 % [facility] Eosinophils/100 WBC (Bld) 0.2 % Low 0.9 - 7.0 % [facility] Erythrocyte distribution width (RBC) [Ratio] 13.7 % 11.0 - 15.0 % [facility] Hematocrit (Bld) [Volume fraction] 32.3 % Low 36.0 - 48.0 % [facility] Hemoglobin (Bld) [Mass/Vol] 10.6 g/dL Low 12.0 - 16.0 g/dL [facility] IMMATURE GRANULOCYTES ABS AUTO 0.04 High [facility] Immature granulocytes/100 WBC (Bld) 0.4 % 0.0 - 0.5 % [facility] Interpretation and review of laboratory results Abnormal [facility] LYMPHOCYTES ABSOLUTE AUTO 1.5 [facility] Lymphocytes/100 WBC (Bld) 16.2 % Low 20.5 - 60.0 % [facility] MCH (RBC) [Entitic mass] 30.9 pg 26.7 - 34.0 pg [facility] MCHC (RBC) [Mass/Vol] 32.8 g/dL 29.9 - 35.2 g/dL [facility] MCV (RBC) [Entitic vol] 94.2 fL 81.0 - 99.0 fL [facility] MONOCYTES ABSOLUTE AUTO 0.5 [facility] Monocytes/100 WBC (Bld) 5.8 % 1.7 - 12.0 % [facility] NEUTROPHILS ABSOLUTE AUTO 6.9 High [facility] Neutrophils/100 WBC (Bld) 77.2 % High 43.0 - 75.0 % [facility] Platelet mean volume (Bld) [Entitic vol] 10.1 fL 9.5 - 13.5 fL [facility] EO # 0 [facility] TB PLT 183 [facility] TB RBC 3.43 Low [facility] TB WBC 9 [facility] Urinalysis macro (dipstick) panel (U)on 11-14-2024 Bilirubin, UA Negative Negative - 4(70) +++ mg/dL [facility] Blood, UA Negative Negative - 50 Eulogio/mcL [facility] Clarity, UA Clear [facility] re Color, UA Yellow [facility] Glucose, UA Negative Negative - 2000(110) ++++ mg/dL [facility] Interpretation and review of laboratory results Abnormal [facility] Ketones, UA Negative Negative - 160(16) ++++ mg/dL [facility] Leukocytes, UA Positive Negative - 500+++ Rufina/mcL [facility] Comment on above: Small Nitrite, UA Negative Negative - Positive [facility] pH, UA 6.5 5 - 9 [facility] Protein, UA Positive Negative - 1999(20) ++++ mg/dL [facility] Comment on above: Small Spec Grav, UA 1.015 1 - 1.03 [facility] Urobilinogen, UA 0.2 0.2 - 12 mg/dL [facility] Urinalysis macro (dipstick) panel (U)on 10-17-2024 Bilirubin, UA Negative Negative - 4(70) +++ mg/dL [facility] Blood, UA Negative Negative - 50 Eulogio/mcL [facility] Clarity, UA Clear [facility] re Color, UA Yellow [facility] Glucose, UA Negative Negative - 1999(110) ++++ mg/dL [facility] Interpretation and review of laboratory results Normal [facility] Ketones, UA Negative Negative - 160(16) ++++ mg/dL [facility] Leukocytes, UA Negative Negative - 500+++ Rufina/mcL [facility] Nitrite, UA Negative Negative - Positive [facility] pH, UA 7 5 - 9 [facility] Protein, UA Negative Negative - 1999(20) ++++ mg/dL [facility] Spec Grav, UA 1.02 1 - 1.03 [facility] Urobilinogen, UA 0.2 0.2 - 12 mg/dL [facility] Ambulatory Visit Summaryon 0 10-07-2024 Ambulatory Visit Summary Ambulatory Visit Summary HESHAM AVALOS :2000 Visit Date:10/07/2024 Ambulatory Visit Instructions Your Diagnosis Dyspareunia, female Your Care Team Attending Physician - TINO MACK, Darin Cummins Primary Care Physician - ANDREA MACK, JIM Neil This Is Your Medications List Contact prescribing [...] Up with TINO MACK, SHERIN Mak When: Only if needed Where: [facility] [address], [place] [phone] Medications What How Much When Instructions Unchanged [...] care provider who specializes in women's health (condominium property manager). How is this treated? Treatment for this condition depends on the cause of the condition and your symptoms. Treatment may include: ??? Lubricants, ointments, and creams. ??? Physical therapy. ??? Massage therapy. ??? Hormonal therapy. ??? Medicines to: ? Prevent or fight infection. ? Relieve pain. ? Help numb the area. ? Treat de (more content not included)... Normal [facility] Office/Clinic Noteon 10-07-2024 Urology Office/Clinic Note [...] [facility] [address], [place] [address] [phone] Additional Instructions: Patient Education Dyspareunia, Female I, [...] Seizure: Sister. Immunizations Vaccine Date Status SARSCoV2 mRNA(ufqoouply-utij-f ucros) vac 06/03/2021 Recorded SARS-CoV-2 (COVID-19) mRNA BNT-162b2 vax 05/13/2021 Recorded influenza virus vaccine, inactivated 02/01/2021 Recorded hepatitis B pediatric vaccine 10/29/2019 Recorded hepatitis B adult vaccine 05/14/2019 Recorded measles/mumps/rubella /varicella vaccine 04/11/2019 Recorded hepatitis B pediatric vaccine 04/11/2019 Recorded meningococcal conjugate vaccine 11/09/2017 Recorded poliovirus vaccine, inactivated 12/08/2004 Recorded measles/mumps/rubella virus vaccine 12/08/2004 Recorded diphtheria/pertussis, acel/tetanus ped (more content not included)... Normal [facility] Comment on above: Result Comment: Elec tronically Signed By: TINO MACK, Darin Cummins\.br\Date and Time Signed: 10/07/24 08:55 EDT\.br\Electronically Co-Signed By: Chichi Bautista\.br\Date and Time Co-Signed: 10/07/24 08:53 EDT GLUCOSE 1 HOURon 09-18-2024 Glucose [Mass/Vol] 104 mg/dL NINF - 13 0 mg/dL [facility] Urinalysis macro (dipstick) panel (U)on 09-17-2024 Bilirubin, UA Negative Negative - 4(70) +++ mg/dL [facility] Blood, UA Negative Negative - 50 Eulogio/mcL [facility] Clarity, UA Clear [facility] re Color, UA Yellow [facility] Glucose, UA Negative Negative - 1999(110) ++++ mg/dL [facility] Interpretation and review of laboratory results Abnormal [facility] Ketones, UA Positive Negative - 160(16) ++++ mg/dL [facility] Comment on above: 40mg/dL Leukocytes, UA Negative Negative - 500+++ Rufina/mcL [facility] Nitrite, UA Negative Negative - Positive [facility] pH, UA 6 5 - 9 [facility] Protein, UA Negative Negative - 1999(20) ++++ mg/dL [facility] Spec Grav, UA 1.015 1 - 1.03 [facility] care Urobilinogen, UA 0.2 0.2 - 12 mg/dL [facility] Urinalysis macro (dipstick) panel (U)on 08-20-2024 Bilirubin, UA Positive Negative - 4(70) +++ mg/dL [facility] Comment on above: small Blood, UA Negative Negative - 50 Eulogio/mcL [facility] Clarity, UA Clear [facility] Color, UA Yellow [facility] Glucose, UA Negative Negative - 1999(110) ++++ mg/dL [facility] Interpretation and review of laboratory results Abnormal [facility] Ketones, UA Positive Negative - 160(16) ++++ mg/dL [facility] Comment on above: 15mg/dL Leukocytes, UA Positive Negative - 500+++ Rufina/mcL [facility] Comment on above: small Nitrite, UA Negative Negative - Positive [facility] pH, UA 7.5 5 - 9 [facility] Protein, UA Positive Negative - 1999(20) ++++ mg/dL [facility] Comment on above: 100mg/dL Spec Grav, UA 1.015 1 - 1.03 [facility] Urobilinogen, UA 1.0 0.2 - 12 mg/dL [facility] Ambulatory Visit Summaryon 0 08-05-2024 Ambulatory Visit Summary Ambulatory Visit Summary HESHAM AVALOS :2000 Visit Date:08/05/2024 Ambulatory Visit Instructions Your Diagnosis Urethral cyst Your Care Team Attending Physician - TINO MACK, Darin Cummins Primary Care Physician - JIM MENDEZ MD [...] [facility] [address] , [place] [address]- [phone] Medications What How Much When Instructions Unchanged [...] including vitamins, herbs, eye drops, creams, and qzfj-yjd-emvfabj medicines. ??? Any problems you or family [...] tells you to take them. ??? Taking xwis-szq-ipxwred medicines, vitamins, herbs, and supplements. Tests You [...] (local ane (more content not included)... Normal [facility] Urology Office/Clinic Noteon 08-05-2024 Urology Office/Clinic [...] Cummins, URL [facility] [address] [place] [address] [phone] Additional Instructions: schedule cystoscopy Patient Education Cystoscopy [...] failure: Grandparent. Hypertension: Grandparent. Seizure: Sister. Normal [facility] Comment on above: Result Comment: Elec tronically Signed By: Darin RICHARD MD\.br\Date and Time Signed: 08/05/24 13:46 EDT\.br\Electronically Co-Signed By: Chichi Bautista\.br\Date and Time Co-Signed: 08/05/24 13:44 EDT RECURRENT VAGINITIS (HTRX)on 07-24-2024 ATOPOBIUM VAGINAE 0 [facility] ATOPOBIUM VAGINAE Not detected [facility] BVAB 2,3 (BACTERIAL VAGINOSIS ASSOCIATED BACTERIA 2, 3); MOBILUNCUS SPP 0 [facility] BVAB 2,3 (BACTERIAL VAGINOSIS ASSOCIATED BACTERIA 2, 3); MOBILUNCUS SPP Not detected [facility] LIU ALBICANS, PARAPSILOSIS, TROPICALIS 0 [facility] LIU ALBICANS, PARAPSILOSIS, TROPICALIS Not detected [facility] LIU GLABRATA 0 [facility] LIU GLABRATA Not detected [facility] LIU KRUSEI 0 [facility] LIU KRUSEI Not detected [facility] CHLAMYDIA TRACHOMATIS 0 [facility] CHLAMYDIA TRACHOMATIS Not detected [facility] GARDNERELLA VAGINALIS 0 [facility] GARDNERELLA VAGINALIS Not detected [facility] MEGASPHAERA (TYPES 1, 2) 0 [facility] MEGASPHAERA (TYPES 1, 2) Not detected [facility] MYCOPLASMA GENITALIUM 0 [facility] MYCOPLASMA GENITALIUM Not detected [facility] NEISSERIA GONORRHOEAE 0 [facility] NEISSERIA GONORRHOEAE Not detected [facility] TRICHOMONAS VAGINALIS 0 [facility] TRICHOMONAS VAGINALIS Not detected [facility] Urinalysis macro (dipstick) panel (U)on 07-23-2024 Bilirubin, UA Negative Negative - 4(70) +++ mg/dL [facility] Blood, UA Negative Negative - 50 Eulogio/mcL [facility] Clarity, UA Clear [facility] re Color, UA Yellow [facility] e Glucose, UA Negative Negative - 1999(110) ++++ mg/dL [facility] Interpretation and review of laboratory results Abnormal [facility] Ketones, UA Positive Negative - 160(16) ++++ mg/dL [facility] Comment on above: trace Leukocytes, UA Negative Negative - 500+++ Rufina/mcL [facility] Nitrite, UA Negative Negative - Positive [facility] pH, UA 6.5 5 - 9 [facility] e Protein, UA Trace Negative - 1999(20) ++++ mg/dL [facility] Spec Grav, UA 1.03 1 - 1.03 [facility] Urobilinogen, UA 0.2 0.2 - 12 mg/dL [facility] Free Cell DNAOrdered B y: Pao Fu on 07-16-2024 [facility] BOX TESTon 07-08-2024 BOX TEST SENT OUT [facility] [address] [facility] [address] 07/08/24 [facility] BOX [facility] Drug Screen, Urineon 025 Amphetamine/Methamph etamine Negative [facility] Barbiturates Negative [facility] Benzodiazepines Negative [facility] Cocaine Metabolite Negative [facility] Methadone Negative [facility] Opiates Negative [facility] Oxycodone Negative [facility] Phencyclidine Negative [facility] Marijuana, Urine Negative [facility] HIV 1&2 AB/AG Screen (P24 AG )on 07-08-2024 HIV 1&2 AB/AG Non-Reactive [facility] Hepatitis B surface antigeno n 07-08-2024 Hepatitis B Surface Antigen Negative [facility] Hepatitis C(HCV) Ab w/ Refle x to PCRon 07-08-2024 HCV Ab Ql (S) Non-Reactive [facility] No Panel Informationon 07-08 [facility] Rubella IGG immune statuson 07-08-2024 Rubella immune IgG IMMUNE [facility] Syphilis Total(Unknown Syphi lis Status)on 07-08-2024 Syphilis Non-Reactive [facility] Type and screenon 07-08-2024 Abo/Rh(D) Positive [facility] US OB TRANSVAGINALon 025 US OB TRANSVAGINAL [...] II, MD, PHD at 05-Jul-2024 08:37:00 PM [facility] Normal Not Available Comment on above: Order Comment: US OB TRANSVAGINAL No LMP recorded. Cytology Cervical or vaginal smear or scraping studyon 11-21-2023 [facility] PAP ACOG PANEL 2: 21 to 29on 03-04-2022 . . Normal [facility] Comment on above: Performed By: #### [id number] #### [facility] [address] [place] [address] Dr. Anthony Newton Age Gdln ACOG Testing - Normal [facility] Comment on above: Performed By: #### [id number] #### [facility] [address] [place] [address] [address] Anthony Newton DIAGNOSIS: Comment [facility] Comment on above: Result Comment: NEGA TIVE FOR INTRAEPITHELIAL LESION OR MALIGNANCY. THIS SPECIMEN WAS RESCREENED PART OF OUR BILL PEDDLER PROGRAM. Performed By: #### [id number] #### [facility] [address] [place] [address] Dr. Anthony Newton Methodology: Comment Normal [facility] Comment on above: Result Comment: This liquid based ThinPrep(R) pap test was screened with the use of an image guided system. Performed By: #### [id number] #### [facility] [address] [place] [address] Dr. Anthony Newton Note: Comment [facility] Comment on above: Result Comment: The Pap smear is a screening test designed to aid in the detection of premalignant and malignant conditions of the uterine cervix. It is not a diagnostic procedure and should not be used as the sole means of detecting cervical cancer. Both false-positive and false-negative reports do occur. . Performed By: #### [id number] #### [facility] [address] [place] [address] Dr. Anthony Newton Performed by: Comment Normal [facility] Comment on above: Result Comment: Lana Connell, Event Manager Performed By: #### [id number] #### [facility] [address] [place] [address] Dr. Anthony Newton QC reviewed by: Comment Normal [facility] Comment on above: Result Comment: Shae Maria, Event Manager (ASCP) Performed By: #### [id number] #### [facility] [address] [place] [address] Dr. Anthony Newton Reflex Criteria: Comment Normal [facility] Comment on above: Result Comment: The HPV DNA reflex criteria were not met with this specimen result therefore, no HPV testing was performed. . Performed By: #### [id number] #### [facility] [address] [place] [address] [address] Anthony Newton Specimen adequacy: Comment Normal [facility] Comment on above: Result Comment: Sati sfactory for evaluation. Endocervical and/or squamous metaplastic cells (endocervical component) are present. Performed By: #### [id number] #### [facility] [address] [place] [address] Dr. Anthony Newton Lab - Toxicology Resultson 0 10-05-2018 Lab - Toxicology Results [id number]#[facility]. [facility]2018 Outside Records [id number]#1. [facility] [facility] 10[facility]-19 Drug Screen Complete Collected Normal [facility] Comment on above: Performed By: #### 1 [id number] #### [facility] (DEFAULT) [address] [place] [address] ED Clinical Summaryon 2018 ED Clinical Summary [facility] ? Urgent Care [address] [place] [address] [id number] Clinical Summary PERSON INFORMATION Name: HESHAM NEELY Age: 18 Years Sex: FEMALE : 00 MRN: Acct#: Visit Reason: Medical screening exam; PHYSICAL PRE EMPLOYMENT/ RIVERVIEW Arrival: 10/03/18 16:20:33 Discharge: 10/03/18 16:50:00 LOS: 000 00:30 Check In: 10/03/18 16:20:33 Checkout: 10/03/18 16:50:00 [facility] [address] [facility] [address] PCP: PROVIDER INFORMATION Provider Role Assigned Unassigned [...] Instructions: Follow-Up: DIAGNOSIS: Patient Understands: Comment: Normal [facility] ED Patient Summaryon 019 ED Patient Summary [facility] ? Urgent Care [address] [place] [id number] PATIENT DISCHARGE INSTRUCTIONS Patient Information Name: HESHAM NEELY Age: 18 Years Date of : 00 Reason For Visit: Medical screening exam; PHYSICAL PRE EMPLOYMENT/ RIVERVIEW Arrival Time: 10/03/18 16:20:33 Primary Care Physician: Attending Physician: Paulino Padilla Comment: Patient Education Medication Information: The exam and treatment you received today in the [facility] Emergency Department were for an urgent problem and are not intended as complete care. It is important for you to follow up with a doctor, nurse practitioner, or physician?s orthopedic assistant for ongoing care. If your symptoms [...] so we can reach you if necessary. [facility] Emergency Department has provided you with a complete list of medications post discharge. Please inform your criminal intelligence analyst/provider of your visit and for further instruction on these medications. Any specific questions regarding your chronic medications and dosages should be discussed with your primary care physician(s) and/or pharmacist. Visit Information Visit Diagnosis: Diagnoses This Visit Medical screening exam ([id number]) If you received any narcotics, sedation, or [...] sign any legal documents Reason for Visit: [place] physical Allergies: Substance Reaction Symptoms Type Comments [...] for Disease Control and Prevention December 2013 Normal [facility] Vital Signs Date Time Vital Sign Value Performing Clinician Sole rodriguez 12-24-2024 10:07-0400 Body mass index (BMI) [Ratio] 39.31 kg/m2 Don Hidalgo DO Work Phone: [facility] 12-24-2024 10:07-0400 Body weight 103.87 kg Don Rocky DO Work Phone: [facility] 12-24-2024 10:07-0400 Diastolic blood pressure 70 mm[Hg] Don Rocky DO Work Phone: [facility] 12-24-2024 10:07-0400 Systolic blood pressure 124 mm[Hg] Don Rocky DO Work Phone: [facility] 12-12-2024 10:28-0400 Body mass index (BMI) [Ratio] 38.96 kg/m2 Kathie COCHRAN Work Phone: [facility] 12-12-2024 10:28-0400 Body weight 102.97 kg Kathie COCHRAN Work Phone: [facility] 12-12-2024 10:28-0400 Diastolic blood pressure 70 mm[Hg] Kathie Roman PA Work Phone: [facility] 12-12-2024 10:28-0400 Systolic blood pressure 130 mm[Hg] Kathie Jesus PA Work Phone: [facility] 11-28-2024 08:48-0400 Body mass index (BMI) [Ratio] 38.62 kg/m2 Don Rocky DO Work Phone: [facility] 11-28-2024 08:48-0400 Body weight 102.06 kg Don Rocky DO Work Phone: [facility] 11-28-2024 08:48-0400 Diastolic blood pressure 74 mm[Hg] Don Rocky DO Work Phone: [facility] 11-28-2024 08:48-0400 Systolic blood pressure 118 mm[Hg] Don Rocky DO Work Phone: [facility] 11-14-2024 11:22-0400 Body mass index (BMI) [Ratio] 38.88 kg/m2 Kathie Roman PA Work Phone: [facility] 11-14-2024 11:22-0400 Body weight 102.74 kg Kathie COCHRAN Work Phone: [facility] 11-14-2024 11:22-0400 Diastolic blood pressure 64 mm[Hg] Kathie COCHRAN Work Phone: [facility] 11-14-2024 11:22-0400 Systolic blood pressure 122 mm[Hg] Kathie COCHRAN Work Phone: [facility] 10-17-2024 08:10-0400 Body mass index (BMI) [Ratio] 38.66 kg/m2 Don Rocky DO Work Phone: [facility] 10-17-2024 08:10-0400 Body weight 102.17 kg Don Rocky DO Work Phone: [facility] 10-17-2024 08:10-0400 Diastolic blood pressure 58 mm[Hg] Don Rocky DO Work Phone: [facility] 10-17-2024 08:10-0400 Systolic blood pressure 114 mm[Hg] Don Rocky DO Work Phone: [facility] 09-23-2024 11:59-0400 Body height 162.6 cm Cintia Allen MD Work Phone: [facility] 09-23-2024 11:59-0400 Body mass index (BMI) [Ratio] 38.04 kg/m2 Cintia Allen MD Work Phone: [facility] 09-23-2024 11:59-0400 Body weight 100.52 kg Cintia Allen MD Work Phone: [facility] 09-23-2024 11:59-0400 Diastolic blood pressure 75 mm[Hg] Cintia Allen MD Work Phone: [facility] 09-23-2024 11:59-0400 Heart rate 90 /min Cintia Allen MD Work Phone: [facility] 09-23-2024 11:59-0400 Systolic blood pressure 119 mm[Hg] Cintia Allen MD Work Phone: [facility] 09-17-2024 13:49-0400 Body mass index (BMI) [Ratio] 38.28 kg/m2 Kathie COCHRAN Work Phone: [facility] 09-17-2024 13:49-0400 Body weight 101.15 kg Kathie COCHRAN Work Phone: [facility] 09-17-2024 13:49-0400 Diastolic blood pressure 78 mm[Hg] Kathie COCHRAN Work Phone: [facility] 09-17-2024 13:49-0400 Systolic blood pressure 124 mm[Hg] Kathie COCHRAN Work Phone: [facility] 08-20-2024 10:54-0400 Body mass index (BMI) [Ratio] 37.59 kg/m2 Don Rocky DO Work Phone: [facility] 08-20-2024 10:54-0400 Body weight 99.34 kg Don Rocky DO Work Phone: [facility] 08-20-2024 10:54-0400 Diastolic blood pressure 84 mm[Hg] Don Rocky DO Work Phone: [facility] 08-20-2024 10:54-0400 Systolic blood pressure 126 mm[Hg] Don Rocky DO Work Phone: [facility] 07-23-2024 12:54-0400 Body mass index (BMI) [Ratio] 38.28 kg/m2 Don Rocky DO Work Phone: [facility] 07-23-2024 12:54-0400 Body weight 101.15 kg Don Rocky DO Work Phone: [facility] 07-23-2024 12:54-0400 Diastolic blood pressure 80 mm[Hg] Don Rocky DO Work Phone: [facility] 07-23-2024 12:54-0400 Systolic blood pressure 120 mm[Hg] Don Rocky DO Work Phone: [facility] 05-24-2023 14:05-0500 Body height 162.6 cm Stephanie Whitlocktrick RAIL BENDER Work Phone: [facility] 05-24-2023 14:05-0500 Body mass index (BMI) [Ratio] 34.57 kg/m2 Stephanie Blancopatrick RAIL BENDER Work Phone: [facility] 05-24-2023 14:05-0500 Body weight 91.35 kg Stephanie Blancopatrick RAIL BENDER Work Phone: [facility] 05-24-2023 14:05-0500 Diastolic blood pressure 74 mm[Hg] Stephanie Whartonzpatrick RAIL BENDER Work Phone: [facility] 05-24-2023 14:05-0500 Heart rate 63 /min Stephanie Blancopatrick RAIL BENDER Work Phone: [facility] 05-24-2023 14:05-0500 Respiratory rate 20 /min Stephanie Whitlocktrick RAIL BENDER Work Phone: [facility] 05-24-2023 14:05-0500 SaO2% (BldA) [Mass fraction] 96 % Stephanie Whitlocktrick RAIL BENDER Work Phone: [facility] 05-24-2023 14:05-0500 Systolic blood pressure 138 mm[Hg] Stephanie Blancopatrick RAIL BENDER Work Phone: [facility] 04-12-2023 15:05-0500 Body height 162.6 cm Daniella Reina MD Work Phone: [facility] 04-12-2023 15:05-0500 Body mass index (BMI) [Ratio] 37.93 kg/m2 Daniella Reina MD Work Phone: [facility] 04-12-2023 15:05-0500 Body weight 100.25 kg Daniella Reina MD Work Phone: [facility] 04-12-2023 15:05-0500 Diastolic blood pressure 76 mm[Hg] Daniella Reina MD Work Phone: [facility] 04-12-2023 15:05-0500 Heart rate 96 /min Daniella Reina MD Work Phone: [facility] 04-12-2023 15:05-0500 Systolic blood pressure 115 mm[Hg] Daniella Reina MD Work Phone: [facility] Encounters Encounter Date Encounter Type Care Provider Facility Start: 12-24-2024 End: 12-24-2024 Bamboo flowsheet Don Rocky DO Work Phone: [facility] Start: 12-24-2024 End: 12-24-2024 Bamboo flowsheet Don Rocky DO Work Phone: [facility] Start: 12-24-2024 End: 12-24-2024 flow sheet Don Rocky DO Work Phone: [facility] Comment on above: Third trimester preg bria ([facility]); 33 weeks gestation of ([facility]); History of placental abnormality; Excessive growth affecting management of , antepartum, single or unspecified fetus ([facility]) Start: 12-24-2024 End: 12-24-2024 ambulatory DON ROCKY Not Available Start: 12-14-2024 End: 12-14-2024 Clinisync Result Encounter Generic External Data Provider [facility] Unsolicited Start: 12-14-2024 End: 12-14-2024 Clinisync Result Encounter Generic External Data Provider [facility] Unsolicited Start: 12-12-2024 End: 12-12-2024 Bamboo flowsheet Kathie COCHRAN Work Phone: [facility] Start: 12-12-2024 End: 12-12-2024 Bamboo flowsheet Kathie COCHRAN Work Phone: [facility] Start: 12-12-2024 End: 12-12-2024 flow sheet Kathie COCHRAN Work Phone: [facility] Comment on above: Third trimester preg bria ([facility]); 31 weeks gestation of ([facility]) Start: 12-12-2024 End: 12-12-2024 ambulatory KATHIE ROMAN Not Available Start: 11-28-2024 End: 11-28-2024 Bamboo flowsheet Don Rocky DO Work Phone: [facility] Start: 11-28-2024 End: 11-28-2024 Bamboo flowsheet Don Rocky DO Work Phone: [facility] Start: 11-28-2024 End: 11-28-2024 flow sheet Don Rocky DO Work Phone: [facility] Comment on above: Third trimester preg bria ([facility]); 29 weeks gestation of ([facility]); History of placental abnormality; Excessive growth affecting management of in third trimester, single or unspecified fetus ([facility]) Start: 11-28-2024 End: 11-28-2024 ambulatory DON ROCKY Not Available Start: 11-16-2024 End: 11-16-2024 Clinisync Result Encounter Generic External Data Provider [facility] Unsolicited Start: 11-16-2024 End: 11-16-2024 Clinisync Result Encounter Generic External Data Provider [facility] Unsolicited Start: 11-14-2024 End: 11-14-2024 Bamboo flowsheet Kathie COCHRAN Work Phone: [facility] Start: 11-14-2024 End: 11-14-2024 Bamboo flowsheet Kathie COCHRAN Work Phone: [facility] Start: 11-14-2024 End: 11-14-2024 flow sheet Kathie COCHRAN Work Phone: [facility] Comment on above: Second trimester pre gnancy ([facility]); 27 weeks gestation of ([facility]) Start: 11-14-2024 End: 11-14-2024 ambulatory KATHIE ROMAN Not Available Start: 10-24-2024 End: 10-24-2024 ambulatory DON R ROCKY [facility] Start: 10-17-2024 End: 10-17-2024 Bamboo flowsheet Don Rocky DO Work Phone: [facility] Start: 10-17-2024 End: 10-17-2024 Bamboo flowsheet Don Rocky DO Work Phone: [facility] Start: 10-17-2024 End: 10-17-2024 flow sheet Don Rocky DO Work Phone: [facility] Comment on above: Second trimester pre gnancy ([facility]); 23 weeks gestation of ([facility]); Diabetes mellitus screening Start: 10-17-2024 End: 10-17-2024 ambulatory DON ROCKY Not Available Start: 10-07-2024 End: 10-07-2024 ambulatory Darin RICHARD Facility:[facility] Start: 10-07-2024 End: 10-07-2024 Patient encounter procedure Darin RICHARD [facility] Start: 09-23-2024 End: 09-23-2024 Office consultation new/estab patient 40 min Cintia Allen MD Work Phone: [facility] Comment on above: Obesity affecting pr egnancy in second trimester, unspecified obesity type (Primary Dx) Start: 09-23-2024 End: 09-23-2024 Orders Only Sherrill Hernandez [facility] Comment on above: Polyhydramnios affec ting (Primary Dx); Low-lying placenta; Placenta previa in second trimester; Velamentous insertion of umbilical cord in second trimester; Vasa previa, single or unspecified fetus; History of hemorrhage, currently in second trimester Start: 09-18-2024 End: 09-18-2024 Clinisync Result Encounter Odn Rocky DO Work Phone: [facility] [...] 08-05-2024 End: 08-05-2024 ambulatory Darin RICHARD Facility:[facility] Start: 08-02-2024 End: 08-02-2024 Chart abstracting Cintia Allen MD Work Phone: [facility] Start: 07-25-2024 ambulatory Facility:[facility] Start: 07-23-2024 End: 07-24-2024 External Result Encounter [...] Not Available Start: 05-24-2023 Bamboo flowsheet Stephanie mae RAIL BENDER Work Phone: [facility] Start: 05-24-2023 Bamboo flowsheet Stephanie Wharton zpatrick RAIL BENDER Work Phone: [facility] Start: 05-24-2023 End: 05-24-2023 Patient encounter status Stephanie Sotelo RAIL BENDER Work Phone: [facility] Work Phone: Start: 05-24-2023 End: 05-24-2023 Periodic preventive med est patient 18-39 yrs Stephanie Sotelo RAIL BENDER Work Phone: [facility] Comment on above: Encounter for wellne ss examination (Primary Dx); Anemia, unspecified type Start: 04-12-2023 End: 04-12-2023 Office outpatient visit 25 minutes Daniella Reina MD Work Phone: [facility] Comment on above: 35 weeks gestation o f (Primary Dx); Polyhydramnios affecting Start: 02-24-2022 End: 02-24-[address] DON HIDALGO Facility:[facility] Procedures Date Procedure Procedure Detail Performing Clinician Start: 12-24-2024 Urnls dip stick/tabl et rgnt non-auto w/o micrscp Don Rocky DO Work Phone: Start: 12-14-2024 US OB GROWTH Generic Ex ternal Data Provider Start: 12-12-2024 Urnls dip stick/tabl et rgnt [...] micrscp Don Rocky DO Work Phone: Start: 07-23-2024 RECURRENT VAGINITIS (HTRX) Don Rocky DO Work Phone: Start: 07-23-2024 Urnls dip stick/tabl et rgnt non-auto w/o micrscp Don Hidalgo DO Work Phone: Start: 07-08-2024 Antibody [...] of wisdom tooth Darin RICHARD Mouth care Darinthaddeus RICHARD Myringotomy and inse rtion of T tube Darinthaddeus RICHARD Tympanostomy Darin RICHARD Plan of Treatment Date Care Activity Detail Author Start: 12-19-2030 DTaP,Tdap and Td Vaccines (6 - Tdap) DTaP,Tdap and Td Vaccines (6 - Tdap) [facility] Start: 11-09-2025 Screening for malign ant neoplasm of cervix Pap Smear [facility] Start: 09-23-2025 Adult BMI Screening Adult BMI Screen ing [facility] Start: 09-23-2025 Tobacco Screening Tobacco Screening [facility] Start: 09-23-2025 End: 09-23-2025 US MFM with or without consult US MFM with or without consult Imaging Routine Polyhydramnios affecting Low-lying placenta Placenta previa in second trimester Velamentous insertion of umbilical cord in second trimester Vasa previa, single or unspecified fetus History of hemorrhage, currently in second trimester Expected: 09/23/2025 (Approximate), Expires: 09/23/2025 [facility] Work Phone: Comment on above: Expected: 09/23/2025 (Approximate), Expires: 09/23/2025 Start: 01-06-2025 End: 01-06-2025 Patient encounter procedure 01/06/2025 10:20 AM EDT Routine [facility] [place] OBJEAN MARIE [address] [place] [id number] Kathie Roman, PA [address] [address] [facility] Start: 12-24-2024 End: 04-25-2025 US for US OB follow up transabdominal approach Imaging Routine Excessive growth affecting management of , antepartum, single or unspecified fetus ([facility]) Expected: 12/24/2024, Expires: 04/25/2025 [facility] Work Phone: Comment on above: Expected: 12/24/2024 , Expires: 04/25/2025 Start: 12-24-2024 End: 12-24-2024 Patient encounter procedure [facility] Comment on above: Arrived Start: 12-16-2024 Influenza vaccination [facility] Start: 12-12-2024 End: 12-12-2024 Patient encounter procedure 12/12/2024 10:10 AM EDT Routine [facility] [place] OBEFFIEN [address] [place] [phone] Kathie Roman, PA [address] [place] [address] Arrived [facility] JAVIER Comment on above: Arrived Start: 11-28-2024 End: 03-30-2025 US for US OB follow up transabdominal approach Imaging Routine Third trimester ([facility]) History of placental abnormality Excessive growth affecting management of in third trimester, single or unspecified fetus ([facility]) Expected: 11/28/2024, Expires: 03/30/2025 [facility] Work Phone: Comment on above: Expected: 11/28/2024 , Expires: 03/30/2025 Start: 11-28-2024 End: 11-28-2024 Patient encounter procedure CONY JAVIER Comment on above: Arrived Start: 11-26-2024 End: 11-26-2024 Patient encounter procedure 11/26/2024 3:00 PM EDT Office Visit [facility] [address] [place] [address] Don Hidalgo DO [address] [place] [address] [facility] Start: 11-14-2024 End: 11-14-2024 Patient encounter procedure [facility] Comment on above: Arrived Start: 10-24-2024 End: 10-24-2024 Patient encounter procedure 10/24/2024 1:00 PM EDT Appointment [facility] [place] [id number] [place] [address] [facility] Start: 10-17-2024 End: 10-17-2025 CBC panel - Blood by Automated count CBC Lab Routine Diabetes mellitus screening Expected: 10/17/2024 (Approximate), Expires: 10/17/2025 [facility] Work Phone: Comment on above: Expected: 10/17/2024 (Approximate), Expires: 10/17/2025 Start: 10-17-2024 End: 10-17-2025 Measurement of glucose 1 hour after glucose challenge for glucose tolerance test Glucose tolerance, 1 hour Lab Routine Diabetes mellitus screening Expected: 10/17/2024 (Approximate), Expires: 10/17/2025 [facility] Comment on above: Expected: 10/17/2024 (Approximate), Expires: 10/17/2025 Start: 10-17-2024 End: 10-17-2024 Patient encounter procedure 10/17/2024 10:10 AM EDT Routine [facility] [address] [place] [phone] Don Hidalgo, DO [address] [place] [address] [facility] Start: 10-17-2024 End: 10-17-2024 Patient encounter procedure 10/17/2024 8:10 AM EDT Routine [facility] [address] [place] [phone] Don Hidalgo, DO [address] [place] [address] Arrived [facility] Comment on above: Arrived Start: 09-23-2024 End: 09-23-2024 Patient encounter procedure [facility] Start: 09-17-2024 End: 09-17-2024 Patient encounter procedure 09/17/2024 1:30 PM EDT Routine [facility] [address] [place] [phone] Kathie Roman PA [address] [place] [address] [facility] Start: 08-20-2024 End: 10-20-2024 [...] mellitus screening Expected: 08/20/2024 (Approximate), Expires: 08/20/2025 [facility] Comment on above: Expected: 08/20/2024 (Approximate), Expires: 08/20/2025 Start: 08-20-2024 End: 08-20-2024 Patient encounter procedure 08/20/2024 10:20 AM EDT Routine [facility] [address] [place] [address] Don Hidalgo, DO [address] [place], [place] [id number] [facility] Start: 08-05-2024 End: 08-05-2024 Patient encounter procedure 08/05/2024 2:10 PM EDT Routine [facility] [address] [place] [address] Don Hidalgo, DO [address] [place] [address] [facility] Start: 04-12-2024 Adult BMI Screening Adult BMI Screen ing [facility] Start: 04-12-2024 Tobacco Screening Tobacco Screening [facility] Start: 12-17-2023 COVID-19 Vaccine ( season) COVID-19 Vaccine ( season) [facility] Start: 12-17-2023 Influenza vaccination Influenza Vacc ine (#1) [facility] Start: 11-10-2023 Screening for Chlamy annabella trachomatis Chlamydia Screening [facility] Start: 10-15-2023 Influenza vaccination Influenza Vacc ine (#1) [facility] Comment on above: Postponed from 12/16 (Patient Refused) Start: 06-07-2023 End: 06-07-2023 ambulatory 06/07/2023 10:30 AM EST Visit [facility] [address] [place] [address] Kathie Roman PA [address] [place] [address] [place] [address] [facility] Start: 05-24-2023 End: 05-24-2024 CBC W Auto Differential panel - Blood CBC and differential Lab Routine Encounter for wellness examination Anemia, unspecified type Expected: 05/24/2023 (Approximate), Expires: 05/24/2024 [facility] Comment on above: Expected: 05/24/2023 (Approximate), Expires: 05/24/2024 Start: 05-24-2023 End: 05-24-2024 Comprehensive metabolic 2000 panel - Serum or Plasma Comprehensive metabolic panel Lab Routine Encounter for wellness examination Anemia, unspecified type Expected: 05/24/2023 (Approximate), Expires: 05/24/2024 [facility] Work Phone: Comment on above: Expected: 05/24/2023 (Approximate), Expires: 05/24/2024 Start: 12-16-2022 COVID-19 Vaccine ( season) COVID-19 Vaccine ( season) [facility] Start: 12-16-2022 Influenza vaccination [facility] Start: 01-31-2022 Depression Screening Depression Scre [facility] Start: 2018 Adult BMI Follow Up Plan Adult BMI Follow Up Plan [facility] Start: 2012 Depression Screening Depression Scre [facility] CHLAMYDIA TRACHOMATI S (GENITO/STI) CHLAMYDIA TRACHOMATIS (GENITO/STI) Lab Routine Vaginal discharge Ordered: 07/23/2024 [facility] Comment on above: Ordered: 07/23/2024 Neisseria gonorrhoea e DNA [Presence] in Unspecified specimen by BOONE with probe detection Neisseria gonorrhea DNA probe, direct Lab Routine Vaginal discharge Ordered: 07/23/2024 [facility] Comment on above: Ordered: 07/23/2024 SURESWAB(R) ADVANCED VAGINITIS PLUS, TMA SURESWAB(R) ADVANCED VAGINITIS PLUS, TMA Pathology and Cytology Routine Vaginal discharge Ordered: 07/23/2024 [facility] Work Phone: Comment on above: Ordered: 07/23/2024 Immunizations Immunization Date Immunization Notes Care Provider Fa ansonty 06-03-2021 SARS-CoV-2 mRNA (lzgfhpbewhm-kosw-uwlsd se) vaccine Darin RICHARD [facility] 05-13-2021 SARS-CoV-2 (COVID-19 ) mRNA BNT-162b2 vax Darin RICHARD [facility] 02-01-2021 Seasonal, quadrivale nt, recombinant, injectable influenza vaccine, preservative free Stephanie Sotelo NP Work Phone: [facility] 02-01-2021 influenza virus vaccine, unspecified formulation Daniella Reina MD Work Phone: [facility] 12-19-2020 diphtheria, tetanus toxoids and pertussis vaccine Daniella Reina MD Work Phone: [facility] 10-29-2019 hepatitis B vaccine, pediatric or pediatric/adolescent dosage Daniella Reina MD Work Phone: [facility] 05-14-2019 hepatitis B vaccine, adult dosage Daniella Reina MD Work Phone: [facility] 04-11-2019 hepatitis B vaccine, pediatric or pediatric/adolescent dosage Daniella Reina MD Work Phone: [facility] 04-11-2019 measles, mumps, rubella, and varicella virus vaccine Daniella Reina MD Work Phone: [facility] 11-09-2017 meningococcal ACWY vaccine, unspecified formulation Darin RICHARD [facility] 11-09-2017 meningococcal oligosaccharide (groups A, C, Y and W-135) diphtheria toxoid conjugate vaccine (MCV4O) Daniella Reina MD Work Phone: [facility] 12-08-2004 diphtheria, tetanus toxoids and acellular pertussis vaccine Daniella Reina MD Work Phone: [facility] 12-08-2004 measles, mumps and rubella virus vaccine Daniella Reina MD Work Phone: [facility] 12-08-2004 poliovirus vaccine, inactivated Daniella Reina MD Work Phone: [facility] 12-08-2004 poliovirus vaccine, unspecified formulation Darin RICHARD [facility] 09-28-2001 measles, mumps and rubella virus vaccine Daniella Reina MD Work Phone: [facility] 03-23-2001 diphtheria, tetanus toxoids and acellular pertussis vaccine, unspecified formulation Daniella Reina MD Work Phone: [facility] 03-23-2001 DTaP, unspecified formulation Darin RICHARD [facility] 03-23-2001 haemophilus influenz ae type b conjugate and Hepatitis B vaccine Daniella Reina MD Work Phone: [facility] 03-23-2001 poliovirus vaccine, inactivated Daniella Reina MD Work Phone: [facility] 03-23-2001 poliovirus vaccine, unspecified formulation Darin RICHARD [facility] 01-12-2001 diphtheria, tetanus toxoids and acellular pertussis vaccine, unspecified formulation Daniella Reina MD Work Phone: [facility] 01-12-2001 DTaP, unspecified formulation Darin RICHARD [facility] 01-12-2001 haemophilus influenz ae type b vaccine, HbOC conjugate Daniella Reina MD Work Phone: [facility] 01-12-2001 poliovirus vaccine, inactivated Daniella Reina MD Work Phone: [facility] 01-12-2001 poliovirus vaccine, unspecified formulation Darin RICHARD [facility] 2000 diphtheria, tetanus toxoids and acellular pertussis vaccine, unspecified formulation Daniella Reina MD Work Phone: [facility] [employer] [facility] 2000 DTaP, unspecified formulation Darin RICHARD [facility] 2000 haemophilus influenz ae type b conjugate and Hepatitis B vaccine Daniella Reina MD Work Phone: [facility] 2000 poliovirus vaccine, inactivated Daniella Reina MD Work Phone: [facility] 2000 poliovirus vaccine, unspecified formulation Darin RICHARD [facility] 2000 hepatitis B vaccine, pediatric or pediatric/adolescent dosage Daniella Reina MD Work Phone: [facility] [employer] NEGATED: Highlighted row has not occurred!04-11-2019 influenza, injectable, quadrivalent, preservative free Daniella Reina MD Work Phone: [facility] Comment on above: Deferred: Patient de cision Payers Date Payer Category Payer Private Health Insurance [id number] 2022 [facility] [id number] 2022 [employer] Blue Shie ld Managed Care - PPO ANTHEM [id number] 2022 Unknown [id number] 2021 Unknown [id number] 2000 Unknown [id number] 2.16.840.1.412966.3.579. 2.593 2000 Unknown [id number] 2.16.840.1.989725.3.579. 2.727 2000 Unknown [id number] 2.16.840.1.511180.3.579. 2.1286 2000 Unknown [id number] 2.16.840.1.068900.3.579. 2.1286 2000 Unknown [id number] 2.16.840.1.552493.3.579. 2.727 2000 Unknown [id number] 2.16.840.1.206892.3.579. 2.727 2000 Unknown [id number] 2.16.840.1.763059.3.579. 2.1286 2000 Unknown [id number] 2.16.840.1.290886.3.579. 2.1259 2000 Unknown [id number] 2.16.840.1.324602.3.579. 2.9 2000 Unknown [id number] 2.16.840.1.715701.3.579. 2.1258 2000 Unknown [id number] 2.16.840.1.965587.3.579. 2.9 2000 Unknown [id number] 2.16.840.1.884546.3.579. 2.1258 2000 Unknown [id number] 2.16.840.1.313485.3.579. 2.1258 2000 Unknown [id number] 2.16.840.1.710665.3.579. 2.1258 2000 Unknown [id number] 2.16.840.1.044315.3.579. 2.1258 2000 Unknown [id number] 2.16.840.1.627409.3.579. 2.1258 2000 Unknown [id number] 2.16.840.1.907016.3.579. 2.1259 1959 Unknown [id number] Social History Date Type Detail Facility Start: 11-08-2022 End: 10-07-2024 Tobacco smoking status PAIS Never smoked tobacco [facility] Start: 11-08-2022 End: 04-12-2023 Tobacco use and exposure Smokeless tobacco non-user [facility] Start: 04-12-2023 End: 04-18-2023 Alcohol intake Lifetime non-drinker (finding) [facility] Start: 05-17-2023 End: 05-24-2023 History of [...] drink containing alcohol? 2-4 times a month [facility] How many standard drinks containing alcohol do you have on a typical day? 3 or 4 [facility] How often do you hav e 6 or more drinks on 1 occasion? Less than monthly [facility] How hard is it for y ou to pay for the very basics like food, housing, medical care, and heating Not hard at all [facility] Do you feel stress - tense, restless, nervous, or anxious, or unable to sleep at night because your mind is troubled all the time - these days [OSQ] Not at all [facility] (I/We) worried wheth er (my/our) food would run out before (I/we) got money to buy more. Never true [facility] Start: 08-15-2022 [facility] Start: 2000 Sex Assigned At Female P [facility] Start: 10-07-2022 Gender identity Identifies as female gender (finding) [facility] Start: 10-07-2022 Sexual orientation Heterosexual (fin laura) [facility] Start: 05-24-2023 End: 12-24-2024 Alcohol intake Ex-drinker (finding) [facility] Are you now , , , , never or living with a partner? Living with partner [facility] How hard is it for y ou to pay for the very basics like food, housing, medical care, and heating Not very hard [facility] Do you feel stress - tense, restless, nervous, or anxious, or unable to sleep at night because your mind is troubled all the time - these days [OSQ] Very much [facility] Start: 01-31-2021 Education 21 [facility] Start: 11-18-2014 Sex Female (finding) [facility] Sexual Orientation [facility] NEGATED: Highlighted rowStart: NINF History of tobacco use Passive smoker [facility] Medical Equipment Procedure Code Equipment Code Equipment Origin al Text Equipment Identifier Dates Check blood suga r 4-5 times daily, fasting and 1 hour after meals. Use as directed. Dispense per insurance preference. [id number] Start: 04-12-2023 1 strip by miscellaneous route in the morning and 1 strip at noon and 1 strip in the evening and 1 strip before bedtime. Check blood sugar 4-5 times daily, fasting and 1 hour after meals. Use as directed. Dispense per insurance preference.. [id number] Start: 04-12-2023 Clinical Notes 04-12-2023 to 12-24-2024 Brittanypraveen Christensen, LADIES SUIT OPERATOR - 12/24/2024 10:00 AM DIMAS Florentino - 12/12/2024 10:10 AM EDRoyer Boyd, LADIES SUIT OPERATOR - 11/28/2024 8:30 AM IDMAS Florentino - 11/14/2024 11:20 AM EDT Note Date & Type Note Facility 12-24-2024 History of Presen t illness Narrative Reason for Appointment: Patient ID: Hesham Avalos is a 24 y.o. female who presents for Routine Visit Patient presents today for Return OB appointment. MEDICATIONS Current Outpatient Medications Medication Instructions Ferrous Gluconate (IRON 27 PO) 1 each, Daily Wnizufop-Ehw-Pi-FA (PRE- PO) 1 each, Daily ALLERGIES No Known Allergies PROBLEMS Active Ambulatory Problems Diagnosis Date Noted History of placental abnormality 12/24/2024 Resolved Ambulatory Problems Diagnosis Date Noted Obesity affecting in second trimester ([facility]) 01/27/2023 Velamentous insertion of umbilical cord in second trimester ([facility]) 01/27/2023 Past Medical History: Diagnosis Date 6 weeks follow-up ([facility]) HISTORY PAST MEDICAL HISTORY SOCIAL HISTORY Past Medical History: Diagnosis Date 6 weeks follow-up ([facility]) Social History Tobacco Use Smoking status: Never Smokeless tobacco: Never Substance Use Topics Alcohol use: Not Currently Drug use: Never FAMILY HISTORY Family History Problem Relation Name Age of Onset Hypertension Maternal Grandmother Firo Diabetes Maternal Grandmother Fior Cancer Maternal Grandfather [...] nursing note reviewed. Exam conducted with a home extension agent present. Vitals: Estimated body mass index is 39.31 kg/m as calculated from the following: Height as of 24: 5' 4 . Weight as of this encounter: 229 lb. BP: 124/70 Patient's last menstrual period was 05/06/2024. ASSESSMENT & PLAN ICD-10-CM 1. Third trimester ([facility]) Z34.93 POCT urinalysis dipstick manually resulted 2. 33 weeks gestation of ([facility]) Z3A.33 3. History of placental abnormality [...] Don Hidalgo DO documented in this encounter [facility] 12-12-2024 History of Presen t illness Narrative Reason for Appointment: Patient ID: Hesham Avalos is a 24 y.o. female who presents for Routine Visit Patient presents today for Return OB appointment. MEDICATIONS Current Outpatient Medications Medication Instructions Ferrous Gluconate (IRON 27 PO) 1 each, Daily Kjqhzmhr-Zts-Gx-FA (PRE- PO) 1 each, Daily ALLERGIES No Known Allergies PROBLEMS Active Ambulatory Problems Diagnosis Date Noted No Active Ambulatory Problems Resolved Ambulatory Problems Diagnosis Date Noted Obesity affecting in second trimester ([facility]) 01/27/2023 Velamentous insertion of umbilical cord in second trimester ([facility]) 01/27/2023 Past Medical History: Diagnosis Date 6 weeks follow-up ([facility]) HISTORY PAST MEDICAL HISTORY SOCIAL HISTORY Past Medical History: Diagnosis Date 6 weeks follow-up ([facility]) Social History Tobacco Use Smoking status: [...] ASSESSMENT & PLAN ICD-10-CM 1. Third trimester ([facility]) Z34.93 POCT urinalysis dipstick manually resulted 2. 31 weeks gestation of ([facility]) Z3A.31 Return OB: Patient presents today for [...] of: DIMAS Cormier documented in this encounter [facility] 11-28-2024 History of Presen t illness Narrative Reason for Appointment: Patient ID: Hesham Avalos is a 24 y.o. female who presents for Routine Visit Patient presents today for Return OB appointment. MEDICATIONS Current Outpatient Medications Medication Instructions Ferrous Gluconate (IRON 27 PO) 1 each, Daily Awkbteje-Tmj-Ut-FA (PRE-SIGIFREDO PO) 1 each, Daily ALLERGIES No Known Allergies PROBLEMS Active Ambulatory Problems Diagnosis Date Noted No Active Ambulatory Problems Resolved Ambulatory Problems Diagnosis Date Noted Obesity affecting in second trimester ([facility]) 01/27/2023 Velamentous insertion of umbilical cord in second trimester ([facility]) 01/27/2023 Past Medical History: Diagnosis Date 6 weeks follow-up ([facility]) HISTORY PAST MEDICAL HISTORY SOCIAL HISTORY Past Medical History: Diagnosis Date 6 weeks follow-up ([facility]) Social History Tobacco Use Smoking status: [...] nursing note reviewed. Exam conducted with a home extension agent present. Vitals: Estimated body mass index is 38.62 kg/m as calculated from the following: Height as of 11/21/23: 5' 4 . Weight as of this encounter: 225 lb. BP: 118/74 Patient's last menstrual period was 05/06/2024. ASSESSMENT & PLAN ICD-10-CM 1. Third trimester ([facility]) Z34.93 POCT urinalysis dipstick manually resulted 2. 29 weeks gestation of ([facility]) Z3A.29 Patient presents today for a [...] Don Hidalgo DO documented in this encounter [facility] 11-14-2024 History of Presen t illness Narrative Reason for Appointment: Patient ID: Hesham Avalos is a 24 y.o. female who presents for Routine Visit Patient presents today for Return OB appointment. MEDICATIONS Current Outpatient Medications Medication Instructions Ferrous Gluconate (IRON 27 PO) 1 each, Daily Vguwcqek-Ciy-Pm-FA (PRE- PO) 1 each, Daily ALLERGIES No Known Allergies PROBLEMS Active Ambulatory Problems Diagnosis Date Noted No Active Ambulatory Problems Resolved Ambulatory Problems Diagnosis Date Noted Obesity affecting in second trimester ([facility]) 01/27/2023 Velamentous insertion of umbilical cord in second trimester ([facility]) 01/27/2023 Past Medical History: Diagnosis Date 6 weeks follow-up ([facility]) HISTORY PAST MEDICAL HISTORY SOCIAL HISTORY Past Medical History: Diagnosis Date 6 weeks follow-up ([facility]) Social History Tobacco Use Smoking status: Never Smokeless tobacco: Never Substance Use Topics Alcohol use: Not Currently Drug use: Never FAMILY HISTORY Family History Problem Relation Name Age of Onset Hypertension Maternal Grandmother Fior Diabetes Maternal Grandmother Fior Cancer Maternal Grandfather Fior Heart failure Maternal Grandfather Fior Cancer Paternal Grandfather Arjat Seizures Sister Nicole SURGICAL HISTORY Past Surgical [...] ASSESSMENT & PLAN ICD-10-CM 1. Second trimester ([facility]) Z34.92 POCT urinalysis dipstick manually resulted 2. 27 weeks gestation of ([facility]) Z3A.27 Return OB: Patient presents today [...] of: DIMAS Cormier documented in this encounter [facility] 10-17-2024 History of Presen t illness Narrative Reason for Appointment: Patient ID: Hesham Avalos is a 24 y.o. female who presents for Routine Visit Patient presents today for Return OB appointment. MEDICATIONS Current Outpatient Medications Medication Instructions Ferrous Gluconate (IRON 27 PO) 1 each, Daily Iytdgcpl-Iha-Op-FA (PRE- PO) 1 each, Daily ALLERGIES No Known Allergies PROBLEMS Active Ambulatory Problems Diagnosis Date Noted No Active Ambulatory Problems Resolved Ambulatory Problems Diagnosis Date Noted Obesity affecting in second trimester ([facility]) 01/27/2023 Velamentous insertion of umbilical cord in second trimester ([facility]) 01/27/2023 Past Medical History: Diagnosis Date 6 weeks follow-up ([facility]) HISTORY PAST MEDICAL HISTORY SOCIAL HISTORY Past Medical History: Diagnosis Date 6 weeks follow-up ([facility]) Social History Tobacco Use Smoking status: [...] nursing note reviewed. Exam conducted with a home extension agent present. Vitals: Estimated body mass index is 38.66 kg/m as calculated from the following: Height as of 11/21/23: 5' 4 . Weight as of this encounter: 225 lb 4 oz. BP: 114/58 Patient's last menstrual period was 05/06/2024. ASSESSMENT & PLAN ICD-10-CM 1. Second trimester ([facility]) Z34.92 POCT urinalysis dipstick manually resulted 2. 23 weeks gestation of ([facility]) Z3A.23 3. Diabetes mellitus screening Z13.1 CBC [...] Don Hidalgo DO documented in this encounter [facility] 10-07-2024 Hospital Discharg e instructions Patient Education [...] care provider who specializes in women's health (condominium property manager). How is this treated? Treatment for this [...] partner about your condition. General instructions Take olks-dpk-spsxngy and prescription medicines only as told by [...] sexual activity until your symptoms improve. Take ecsf-glf-eohwkin and prescription medicines only as told by [...] provider. Document Revised: 2021 Document Reviewed: 2021 [employer] Patient Education 2023 [employer]. Follow Up Care 08/08/2024 12:40:44 With:TINO MACK, Darin Cummins, URL Address: [facility] [address] , [place] [address]- [phone] When: only if needed [facility] 10-07-2024 Note Patient Education Obstetrics and [...] care provider who specializes in women's health (condominium property manager). How is this treated? Treatment for this [...] about your condition. General instructions ??? Take zpkl-dtr-owiohgw and prescription medicines only as told by [...] activity until your symptoms improve. ??? Take fqrm-uuq-wnbrcez and prescription medicines only as told by your health care provider. ??? Contact a health care provider if your symptoms get worse or do not improve with treatment. ??? Keep all follow-up visits. This is important. This information is not intended to replace (more content not included)... [facility] 09-23-2024 History of Presen t illness [...] GENDER Have you been seen here at [facility] in a previous ? No Recent ER visits or hospitalizations? No Bring blood sugar log or meter with you today? (Please bring them with you for every visit at [facility]) n/a Flu vaccine (Feb-June)? No Any concerns [...] insurance preference.., Disp: 100 each, Rfl: 1 [id number]-cwaij-lq3 (DUET DHA WITH OMEGA-3) 25 mg iron-1 mg -400 mg combo pack, Take by mouth., Disp: , Rfl: ferrous sulfate (HIGH POTENCY IRON) 27 mg iron tablet, Take by mouth. (Patient not taking: Reported on 09/23/2024), Disp: , Rfl: rwu382-equs-outoz-pg2 25 mg iron-1 mg -400 mg combo [...] 39 weeks 8. Delivery method preferred vaginal. Lawrence C/S for usual obstetrical indications TIME OF CONSULTATION: We spent 30 minutes with the patient, >50% in discussion and counseling, coordination of care which was larn-lh-gszi. documented in this encounter [facility] 09-17-2024 History of Presen t illness Narrative Reason for Appointment: Patient ID: Hesham Avalos is a 24 y.o. female who presents for Routine Visit Patient presents today for Acute Visit. and Return OB appointment. MEDICATIONS Current Outpatient Medications Medication Instructions Ferrous Gluconate (IRON 27 PO) 1 each, Daily Yugxsfpi-Bpc-Qk-FA (PRE-SIGIFREDO PO) 1 each, Daily ALLERGIES No [...] Gluconate (IRON 27 PO) 1 each, Daily Lxgkznhb-Uzd-Kz-FA (PRE- PO) 1 each, Daily ALLERGIES No [...] Hypertension Maternal Grandmother Fior Diabetes Maternal Grandmother Foir Cancer Maternal Grandfather Fior Heart failure Maternal [...] nursing note reviewed. Exam conducted with a home extension agent present. Vitals: Estimated body mass index is [...] of: DIMAS Cormier documented in this encounter [facility] 08-20-2024 History of Presen t illness Narrative Reason for Appointment: Patient ID: Hesham Avalos is a 24 y.o. female who presents for Routine Visit Patient presents today for Return OB appointment. MEDICATIONS Current Outpatient Medications Medication Instructions Ferrous Gluconate (IRON 27 PO) 1 each, Daily Fmttaobi-Orp-Bu-FA (PRE- PO) 1 each, Daily ALLERGIES No [...] nursing note reviewed. Exam conducted with a home extension agent present. Vitals: Estimated body mass index is [...] Don Hidalgo DO documented in this encounter [facility] 08-05-2024 Note Patient Education Urology Cystoscopy [...] including vitamins, herbs, eye drops, creams, and gaxk-mrx-btfarwu medicines. ??? Any problems you or family [...] tells you to take them. ??? Taking wnan-xcg-tdjdvec medicines, vitamins, herbs, and supplements. Tests You [...] these instructions at home: Medicines ??? Take pgko-sig-czubijg and prescription medicines only as told by [...] (biopsy) during your (more content not included)... [facility] 07-23-2024 History of Presen t illness Narrative Reason for Appointment: Patient ID: Hesham Avalos is a 23 y.o. female who presents for No chief complaint on file. Patient presents today for Return OB appointment. MEDICATIONS Current Outpatient Medications Medication Instructions Ferrous Gluconate (IRON 27 PO) 1 each, Daily Qxaflpwv-Guk-Ap-FA (PRE- PO) 1 each, Daily ALLERGIES No [...] nursing note reviewed. Exam conducted with a home extension agent present. Vitals: Estimated body mass index is [...] or undercooked meat, and stay away from [facility]. Patient has been consulted regarding any further do's and don'ts of . Patient voiced understanding and all questions and concerns were answered. Cultures obtained. Pt being referred to [facility] for h/o placental abnormality (vasa previa). Pt has cyst on urethra- referred to urologist Orders Placed This Encounter Procedures CHLAMYDIA TRACHOMATIS (GENITO/STI) Neisseria gonorrhea DNA probe, direct POCT urinalysis dipstick manually resulted Follow Up: Patient is to return in 4 weeks for routine OB appointment. Documented by Brittany Christensen LPN on behalf of: Don Hidalgo DO documented in this encounter [facility] 05-24-2023 History of Presen t illness Narrative Hesham Avalos is a 22 y.o. female presents with chief complaint of Establish Care HPI: Patient presents today for RAIL BENDER appointment- to establish care with new provider. SUBJECTIVE: MEDICATIONS: Current Outpatient Medications Medication Instructions Xsqmfr-FzTras-Zynik-FA-[place] 3 (Duet DHA 400) 25-1 & 400 [...] tenderness or frontal sinus tenderness. Mouth/Throat: Lips: [place]. Mouth: Mucous membranes are moist. Pharynx: Oropharynx [...] CBC and differential; Future Wellness performed at [facility] today. Height, weight, BMI, problem list, and immunizations records reviewed. Dental care discussed with patient. Anemia, unspecified type - Comprehensive metabolic panel; Future - CBC and differential; Future Await results. No follow-ups on file. documented in this encounter [facility] 04-12-2023 History of Presen t illness Narrative [...] Drug Allergies CURRENT MEDICATIONS: Current Outpatient Medications: [id number]-ek0 (DUET DHA WITH OMEGA-3) 25 mg iron-1 [...] insurance preference.., Disp: 100 each, Rfl: 1 [id number]-dsdr-pikos-dj1 25 mg iron-1 mg -400 mg combo [...] patient is in complete care of her health nurse. Patient does have ultrasound and office visit scheduled with us. Thank you for allowing me to participate in the care of Hesham Avalos. If there any questions please do not hesitate to contact us. Daniella Reina MD Maternal- Medicine [facility] [address] [place] [address] [facility], the CDC, and other organizations representing maternal and public health professionals recommend that , , and lactating people and those considering receive the COVID-19 vaccination. Vaccination is the best method to reduce maternal and complications of SARS-CoV-2 infection. This document was created with [employer] technology. Though I make every effort to [...] by the [place]?Board of?Obstetrics and?Gynecology?as well as?[employer] abbreviations. The above plan of care was based solely on the diagnoses for which a consultation was requested. ?More frequent testing may be indicated based on her other medical/obstetrical conditions. The management of other or medical conditions is beyond the scope of requested consultation and will continue to be followed by the primary health nurse or primary care provider. Note to patient: [...] of the practitioner. documented in this encounter [facility] [employer] System Evaluation + Plan note No data available for this section [facility] [place] Evaluation note Diagnosis Encounter for wellness examination- Primary Anemia, unspecified type documented in this encounter [facility] note* Diagnosis 35 weeks gestation of - Primary Polyhydramnios affecting [facility] Diagnosis 11 weeks gestation of First trimester state, incidental History of placental abnormality Vaginal discharge Leukorrhea, not specified as infective Urethral cyst Other specified disorders of urethra documented in this encounter [facility] note* Diagnosis Second trimester state, incidental 15 weeks gestation of Diabetes mellitus screening Screening for diabetes mellitus documented in this encounter [facility] HealthcareEvaluation note* Diagnosis Obesity affecting in second trimester, unspecified obesity type- Primary documented in this encounter [facility] [employer] SystemEvaluation note* Diagnosis Polyhydramnios affecting - Primary [...] note* Diagnosis Third trimester ([facility]HS-HCC) state, incidental 33 weeks gestation of ([facility]-HCC) History of placental abnormality Excessive growth affecting management of , antepartum, single or unspecified fetus ([facility]HS-HCC) documented in this encounter [facility] HealthcareInstructionsNot on filedocumented in this encounterProMedica Health SystemInstructionsNot on filedocumented in this encounterProMedica Health SystemInstructionsNot on filedocumented in this encounterProMedica Health SystemInstructionsNot on filedocumented in this encounterProMedica Health System Progress note No data available for this section [facility] Summary Purpose Family History No Family [...] t Referred To Contact Daniella Reina MD [address] [address] Referral ID Status Reason Start Date Expiration Date V isits Requested Visits Authorized [id number] Pending Review 1 1 Referral ID Status Reason Start Date Expiration Date V isits Requested Visits Authorized [id number] Pending Review 1 1 Additional Source Comments INFORMATION SOURCE (unrecogn ized section and content) DATE CREATED AUTHOR 10/05/2018 [facility] DATE CREATED AUTHOR AUTHOR'S ORGANIZ ATION 04/13/2022 [facility] DATE CREATED AUTHOR AUTHOR'S ORGANIZ ATION 07/27/2024 [facility] DATE CREATED AUTHOR AUTHOR'S ORGANIZ ATION 09/24/2024 [facility] DATE CREATED AUTHOR AUTHOR'S ORGANIZ ATION 10/08/2024 [facility] DATE CREATED AUTHOR AUTHOR'S ORGANIZ ATION 10/29/2024 [facility] DATE CREATED AUTHOR AUTHOR'S ORGANIZ ATION 12/26/[address] [facility] d[facility] Special[facility] EPIC Care Teams (unrecognized sec tion and content) Auto Polisher Relationship Specialty Start Date End Date Taisha Pena MD [address] [place] [address] PCP - General Family Medicine 05/03/23 Auto Polisher Relationship Specialty Start Date End Date Taisha Pena MD [address] [place] [address] PCP - General Family Medicine 05/03/23 Auto Polisher Relationship Specialty Start Date End Date Taisha Pena MD [address] [place] [address] PCP - General Family Medicine 05/03/23 Auto Polisher Relationship Specialty Start Date End Date Taisha Pena MD [address] [place] [address] PCP - General Family Medicine 05/03/23 Auto Polisher Relationship Specialty Start Date End Date Taisha Pena MD [address] [place] [address] PCP - General Family Medicine 05/03/23 Auto Polisher Relationship Specialty Start Date End Date Taisha Pena MD [address] [place] [address] PCP - General Family Medicine 05/03/23 Auto Polisher Relationship Specialty Start Date End Date Taisha Pena MD [address] [place] [address] PCP - General Family Medicine 05/03/23 Auto Polisher Relationship Specialty Start Date End Date Taisha Pena MD [address] [place] [address] PCP - General Family Medicine 05/03/23 Stephanie Sotelo NP [address] [place] [address] PCP - [place] [employer] 07/16/24 Auto Polisher Relationship Specialty Start Date End Date Taisha Pena MD [address] [place] [address] PCP - General Family Medicine 05/03/23 Stephanie Sotelo NP [address] [place] [address] PCP - [place] [employer] 07/16/24 Auto Polisher Relationship Specialty Start Date End Date Taisha Pena MD [address] [place] [address] PCP - General Family Medicine 05/03/23 Stephanie Sotelo NP [address] [place], [place] [id number] PCP - [facility]z [facility] 07/16/24 Auto Polisher Relationship Specialty Start Date End Date Taisha Pena MD [address] [place], [place] [id number] PCP - General Family Medicine 05/03/23 Stephanie Sotelo NP [address] [place] [address] PCP - Carloz Eduardo 07/16/24 Reason for Visit (unrecogniz ed section [...] BE BASED ON THE PRIMARY CLINICAL RECORDS. [employer] provides no warranty or guarantee of the accuracy or completeness of information in this document.
== END 2024-12-27 11:45 | disposition home or self-care (01) ==
LOC: FBC 11:19
PROVIDERS: Admitting Provider Obstetrics & Gynecology; PCP Family Medicine; Visit Provider Obstetrics & Gynecology
DX: O36.8130 Decreased fetal movements, third trimester, not applicable or unspecified (principal); Z3A.33 33 weeks gestation of pregnancy
CPT/HCPCS: 59025; G0379

== ENCOUNTER 2025-01-14 20:36 | Outpatient (REF) | payer BC, SELFPAY ==
--- OUTSIDE RECORDS SUMMARY | 2024-11-28 08:30 | XMS_ITS | Encounter Summary ---
Author Organization [facility] Address [address] [place] [address] Care Team Providers Care Business Development Engineer Name Role Phone Taisha Ortiz MD Primary Care Provider [phone] Stephanie Sotelo BALLOON SELLER Unavailable [phone] Reason for Visit * Reason Comments Routine Visit Encounter Details Date Type Department Care Team (Late Contact Info) Description 11/28/2024 8:30 AM EDT Routine [facility] [place] [facility] [address] [place] [phone] Don Hidalgo DO [address] [place], [place] [id number] Third trimester ([facility]); 29 weeks gestation of ([facility]); History of placental abnormality; Excessive growth affecting management of in third trimester, single or unspecified fetus ([facility]) Social History Tobacco Use Types Packs/Day Years [...] often do you attend chur ch or nondenominational services? 1 to 4 times per year 05/17/2023 Do you belong to any clubs o r organizations such as sabianism groups, unions, fraternal or athletic groups, or [...] Recorded Patient Health Questionnaire-2 Score 0 05/24/2023 [facility] [place] of Occupat ional Health - Occupational Stress [...] Gluconate (IRON 27 PO) 1 each, Daily Ltehrate-Yjm-Qk-FA (PRE- PO) 1 each, Daily ALLERGIES No Known Allergies PROBLEMS Active Ambulatory Problems Diagnosis Date Noted No Active Ambulatory Problems Resolved Ambulatory Problems Diagnosis Date Noted Obesity affecting in second trimester ([facility]) 01/27/2023 Velamentous insertion of umbilical cord in second trimester ([facility]) 01/27/2023 Past Medical History: Diagnosis Date 6 weeks follow-up ([facility]) HISTORY PAST MEDICAL HISTORY SOCIAL HISTORY Past Medical History: Diagnosis Date 6 weeks follow-up ([facility]) Social History Tobacco Use Smoking status: Never [...] nursing note reviewed. Exam conducted with a pulp bleacher present. Vitals: Estimated body mass index is 38.62 kg/m?? as calculated from the following: Height as of 11/21/23: 5' 4 . Weight as of this encounter: 225 lb. BP: 118/74 Patient's last menstrual period was 05/06/2024. ASSESSMENT & PLAN ICD-10-CM 1. Third trimester ([facility]) Z34.93 POCT urinalysis dipstick manually resulted 2. 29 weeks gestation of ([facility]) Z3A.29 Patient presents today for a routine [...] by Franci Boyd LPN on behalf of: oDn Hidalgo DO documented in this encounter Plan of Treatment Upcoming Encounters Date Type Department Care Team (Late st Contact Info) Description 01/23/2025 10:20 AM EDT Routine [facility] [address] [place] [place] [address] Kendra Smith, HASMUKH [address] [place] [address] Scheduled Orders Name Type Priority Associated Diagnoses Orde r Schedule US OB follow up transabdominal approach Imaging Routine Third trimester ([facility]) History of placental abnormality Excessive growth affecting management of in third trimester, single or unspecified fetus ([facility]) Expected: 11/28/2024, Expires: 03/30/2025 documented as of this encounter Procedures Procedure Name Priority Date/Time Associated Diagnosis Comments POCT URINALYSIS DIPSTICK Routine 11/28/2024 8:48 AM EDT Third trimester ([facility]) documented in this encounter [...] Negative Negative - 50 Eulogio/mcL pH, UA 6.0 5 - 9 Protein, UA 1+ Negative - 2000(20) ++++ mg/dL Urobilinogen, UA 1.0 0.2 - 12 mg/dL Leukocytes, UA 1+ Negative - 500+++ Rufina/mcL Nitrite, UA Negative Negative - Positive Urine 11/28/2024 8:48 AM EDT Don Hidalgo DO POINT OF CARE TEST ENTER/EDIT OR DERABLES Final Result documented in this encounter Visit Diagnoses Diagnosis Third trimester ([facility]) state, incidental 29 weeks gestation of ([facility]) History of placental abnormality Excessive growth affecting management of in third trimester, single or unspecified fetus ([facility]) documented in this encounter Care Teams Business Development Engineer Relationship Specialty Start Date End Date Taisha Ortiz MD [address] [place], [place] [phone] PCP - General Family Medicine 05/03/23 Stephanie Sotelo NP [address] [place] [address] PCP - Carloz Eduardo 07/16/24 documented as of this encounter
--- OUTSIDE RECORDS SUMMARY | 2024-12-24 10:00 | XMS_ITS | Encounter Summary ---
Author Organization [facility] Address [address] [place] [address] Care Team Providers Care Director Payment Name Role Phone Taisha Ortiz MD Primary Care Provider [phone] Stephanie Sotelo DIRECTOR INSTRUCTIONAL MATERIAL Unavailable [phone] Reason for Visit * Reason Comments Routine Visit Encounter Details Date Type Department Care Team (Late Contact Info) Description 12/24/2024 10:00 AM EDT Routine [facility] [place] [facility] [address] [place] [phone] Don Hidalgo DO [address] [place], [place] [id number] Third trimester ([facility]); 33 weeks gestation of ([facility]); History of placental abnormality; Excessive growth affecting management of , antepartum, single or unspecified fetus ([facility]) Social History Tobacco Use Types Packs/Day [...] often do you attend chur ch or religion services? 1 to 4 times per year 05/17/2023 Do you belong to any clubs o r organizations such as shinto groups, unions, fraternal or athletic groups, or [...] Recorded Patient Health Questionnaire-2 Score 0 05/24/2023 [facility] of Occupat ional Health - Occupational Stress [...] place to sleep or slept in a jail (including now)? No 05/17/2023 Estimated Date of [...] Gluconate (IRON 27 PO) 1 each, Daily Gojdqukv-Kzi-Ut-FA (PRE-SIGIFREDO PO) 1 each, Daily ALLERGIES No Known Allergies PROBLEMS Active Ambulatory Problems Diagnosis Date Noted History of placental abnormality 12/24/2024 Resolved Ambulatory Problems Diagnosis Date Noted Obesity affecting in second trimester ([facility]) 01/27/2023 Velamentous insertion of umbilical cord in second trimester ([facility]) 01/27/2023 Past Medical History: Diagnosis Date 6 weeks follow-up ([facility]) HISTORY PAST MEDICAL HISTORY SOCIAL HISTORY Past Medical History: Diagnosis Date 6 weeks follow-up ([facility]) Social History Tobacco Use Smoking status: [...] nursing note reviewed. Exam conducted with a professor of public administration present. Vitals: Estimated body mass index is 39.31 kg/m?? as calculated from the following: Height as of 11/21/23: 5' 4 . Weight as of this encounter: 229 lb. BP: 124/70 Patient's last menstrual period was 05/06/2024. ASSESSMENT & PLAN ICD-10-CM 1. Third trimester ([facility]) Z34.93 POCT urinalysis dipstick manually resulted 2. 33 weeks gestation of ([facility]) Z3A.33 3. History of placental abnormality [...] for routine OB appointment. Documented by Brittany Chirstensen LPN on behalf of: Don Hidalgo DO documented in this encounter Plan of Treatment Upcoming Encounters Date Type Department Care Team (Late st Contact Info) Description 01/23/2025 10:20 AM EDT Routine [facility] [address] [facility] [place] [address] Kendra Smith, HASMUKH [address] [place] [address] documented as of this encounter Procedures Procedure Name Priority Date/Time Associated Diagnosis Comments POCT URINALYSIS DIPSTICK Routine 12/24/2024 10:13 AM EDT Third trimester ([facility]) documented in this encounter Results * US OB follow up transabdominal approach (01/14/2025 9:27 AM EDT) Anatomical Region Laterality Modality Body Ultrasound 01/14/2025 1:42 PM EDT Impressions 01/14/2025 2:09 PM EDT 1. Single, live intrauterine , current sonographic age of 38 weeks and 6 days, with an estimated date of delivery of January 22, 2025 (prior RAY February 10, 2025) 2. Estimated weight 3946 grams (8 pounds, 11 ounces), weight by percentile >97% * Estimated Weight (g) by Percentile is based upon an accurate estimated age based on last menstrual period. TRANSCRIBED BY: ELECTRONICALLY SIGNED BY: Wayne Alarcon MD Narrative 01/14/2025 2:09 PM EDT FINDINGS: Comparison July 05, 2024. A single, live intrauterine is present with normal cardiac rate of 151 beats per minute. Normal activity and amniotic fluid volume. Amniotic fluid index is 18 cm. Morphology is grossly normal. The cervix is not visualized due to positioning. The current sonographic age is 38 weeks and 6 days, based on the following measurements: BPD 9.8 cm (40 weeks, 0 days) Head Circumference 37.1 cm (OOR) Abdominal Circumference 36.5 cm (40 weeks, 3 days) Femur Length 7.1 cm (36 weeks, 1 day) Presentation Cephalic Weight (g) by Percentile >97% * These measurements result in an estimated date of delivery of January 22, 2025. The current estimated weight is 3946 grams (8 pounds, 11 ounces). Procedure Note Wayne Alarcon MD - 01/14/2025 FINDINGS: Comparison July 05, 2024. A single, live intrauterine is present with normal cardiacrate of 151 beats per minute. Normal activity and amniotic fluidvolume. Amniotic fluid index is 18 cm. Morphology is grossly normal. Thecervix is not visualized due to positioning. The currentsonographic age is 38 weeks and 6 days, based on the followingmeasurements: BPD 9.8 cm (40 weeks, 0 days) Head Circumference 37.1 cm (OOR) Abdominal Circumference 36.5 cm (40 weeks, 3 days) Femur Length 7.1 cm (36 weeks, 1 day) Presentation Cephalic Weight (g) by Percentile >97% * These measurements result in an estimated date of delivery of January. The current estimated weight is 3946 grams (8 pounds, 11ounces). IMPRESSION: 1. Single, live intrauterine , current sonographic age of 38weeks and 6 days, with an estimated date of delivery of January 22, 2025(prior RAY February 10, 2025) 2. Estimated weight 3946 grams (8 pounds, 11 ounces), weightby percentile >97% * Estimated Weight (g) by Percentile is based upon an accurateestimated age based on last menstrual period. TRANSCRIBED BY: ELECTRONICALLY SIGNED BY: Wayne Alarcon MD Don Hidalgo DO IMG OB US PROCEDURES Final Resul t * (ABNORMAL) POCT urinalysis dipstick manually resulted [...] Urine 12/24/2024 10:1 3 AM EDT Don Hidalgo DO POINT OF CARE TEST ENTER/EDIT OR DERABLES Final Result documented in this encounter Visit Diagnoses Diagnosis Third trimester ([facility]) state, incidental 33 weeks gestation of ([facility]) History of placental abnormality Excessive growth affecting management of , antepartum, single or unspecified fetus ([facility]) Excessive growth affecting management of , antepartum, single or unspecified fetus ([facility]) documented in this encounter Care Teams Director Payment Relationship Specialty Start Date End Date Taisha Ortiz MD [address] [place], [place] [phone] PCP - General Family Medicine 05/03/23 Stephanie Sotelo NP [address] [place] [address] PCP - Carloz Eduardo 07/16/24 documented as of this encounter
--- OUTSIDE RECORDS SUMMARY | 2025-01-06 10:20 | XMS_ITS | Encounter Summary ---
Author Organization [facility] Address [address] [place] [address] Care Team Providers Care Assistant Men'S Lacrosse Coach Name Role Phone Taisha Ortiz MD Primary Care Provider [phone] Stephanie Sotelo MOLD MOVER Unavailable [phone] Reason for Visit * Reason Comments Routine Visit Encounter Details Date Type Department Care Team (Late Contact Info) Description 01/06/2025 10:20 AM EDT Routine [facility] [address] [place] [phone] Kathie Lee PA [address] [place], [place] [phone] Third trimester ([facility]); 35 weeks gestation of ([facility]) Social History Tobacco Use Types Packs/Day [...] How often do you attend chur or advent services? 1 to 4 times per year 05/17/2023 Do you belong to any clubs o r organizations such as evangelical groups, unions, fraternal or athletic groups, or [...] Recorded Patient Health Questionnaire-2 Score 0 05/24/2023 [facility] Occupat ional Health - Occupational [...] Gluconate (IRON 27 PO) 1 each, Daily Oyejsjug-Moj-Sr-FA (PRE- PO) 1 each, Daily ALLERGIES No Known Allergies PROBLEMS Active Ambulatory Problems Diagnosis Date Noted History of placental abnormality 12/24/2024 Resolved Ambulatory Problems Diagnosis Date Noted Obesity affecting in second trimester ([facility]) 01/27/2023 Velamentous insertion of umbilical cord in second trimester ([facility]) 01/27/2023 Past Medical History: Diagnosis Date 6 weeks follow-up ([facility]) HISTORY PAST MEDICAL HISTORY SOCIAL HISTORY Past Medical History: Diagnosis Date 6 weeks follow-up ([facility]) Social History Tobacco Use Smoking status: [...] ASSESSMENT & PLAN ICD-10-CM 1. Third trimester ([facility]) Z34.93 POCT urinalysis dipstick manually resulted 2. 35 weeks gestation of ([facility]) Z3A.35 Return OB: Patient presents today for [...] [address] [place] [address] Kendra Smith, HASMUKH [address] [place] [address] documented as of this encounter Procedures Procedure Name Priority Date/Time Associated Diagnosis Comments POCT URINALYSIS DIPSTICK Routine 01/06/2025 10:42 AM EDT Third trimester ([facility]) documented in this encounter Results * (ABNORMAL) [...] this encounter Visit Diagnoses Diagnosis Third trimester ([facility]) state, incidental 35 weeks gestation of ([facility]) documented in this encounter Care Teams Assistant Men'S Lacrosse Coach Relationship Specialty Start Date End Date Taisha Ortiz MD [address] [facility] [place] [address] PCP - General Family Medicine 05/03/23 Stephanie Sotelo NP [address] [facility] [place] [address] PCP - Carloz Eduardo 07/16/24 documented as of this encounter
--- OUTSIDE RECORDS SUMMARY | 2025-01-14 09:00 | XMS_ITS | Encounter Summary ---
Author Organization [facility] Address [address] [place] [address] Care Team Providers Care Mason Tender Name Role Phone Taisha Ortiz MD Primary Care Provider [phone] Stephanie Sotelo PRODUCTION MATERIAL HANDLER Unavailable [phone] Encounter Details Date Type Department Care Team (Latest Contact Info) Description 01/14/2025 9:00 AM EDT Ancillary Procedure [facility] [address] [place] [address] [place] [phone] Excessive growth affecting management of , antepartum, single or unspecified fetus ([facility]) Social History Tobacco Use Types Packs/Day Years [...] any clubs o r organizations such as temple groups, unions, fraternal or athletic groups, or [...] Questionnaire-2 Score 0 05/24/2023 [facility] - Occupational Stress Questionnaire Answer Date [...] place to sleep or slept in a usp (including now)? No 05/17/2023 Estimated Date of [...] AM EDT Routine [facility] [address] [facility] [place] [address] Kendra Smith, HASMUKH [address] [place] [address] documented as of this encounter Procedures Procedure Name Priority Date/Time Associated Diagnosis Comments US OB FOLLOW UP TRANSABDOMINAL APPROACH Routine 01/14/2025 9:27 AM EDT Excessive growth affecting management of , antepartum, single or unspecified fetus ([facility]) documented in this encounter Results * US [...] BY: ELECTRONICALLY SIGNED BY: Wayne Alarcon MD us Don Rocky DO IMG OB US PROCEDURES Final Resul t documented in this encounter Visit Diagnoses Diagnosis Excessive growth affecting management of , antepartum, single or unspecified fetus ([facility]) documented in this encounter Care Teams Mason Tender Relationship Specialty Start Date End Date Taisha Ortiz MD [address] [place] [address] PCP - General Family Medicine 05/03/23 Stephanie Sotelo NP [address] [place] [address] PCP - Carloz Eduardo 07/16/24 documented as of this encounter
--- OUTSIDE RECORDS SUMMARY | 2025-01-14 09:20 | XMS_ITS | Encounter Summary ---
Author Organization [facility] Address [address] [place] [address] Care Team Providers Care Human Relations Manager Name Role Phone Taisha Ortiz MD Primary Care Provider Stephanie Sotelo PHARMACY ACCOUNT DIRECTOR Unavailable Reason for Visit * Reason Comments Routine Visit Encounter Details Date Type Department Care Team (Late Contact Info) Description 01/14/2025 9:20 AM EDT Routine [facility] [address] [facility] [facility] [place] [address] Kendra Smith, HASMUKH [address] [facility] [address] [place] [address] Third trimester ([facility]); 36 weeks gestation of ([facility]); History of placental abnormality; Excessive growth affecting management of , antepartum, single or unspecified fetus ([facility]) Social History Tobacco Use Types Packs/Day [...] How often do you attend chur or taoist services? 1 to 4 times per year [...] Recorded Patient Health Questionnaire-2 Score 0 05/24/2023 [facility] [place] of Occupat ional Health - Occupational Stress [...] place to sleep or slept in a longterm (including now)? No 05/17/2023 Estimated Date of [...] Gluconate (IRON 27 PO) 1 each, Daily Suxplfib-Ziq-Xq-FA (PRE- PO) 1 each, Daily ALLERGIES No Known Allergies PROBLEMS Active Ambulatory Problems Diagnosis Date Noted History of placental abnormality 12/24/2024 Resolved Ambulatory Problems Diagnosis Date Noted Obesity affecting in second trimester ([facility]) 01/27/2023 Velamentous insertion of umbilical cord in second trimester ([facility]) 01/27/2023 Past Medical History: Diagnosis Date 6 weeks follow-up ([facility]) HISTORY PAST MEDICAL HISTORY SOCIAL HISTORY Past Medical History: Diagnosis Date 6 weeks follow-up ([facility]) Social History Tobacco Use Smoking status: [...] nursing note reviewed. Exam conducted with a detention deputy present. Vitals: Estimated body mass index is 39.48 kg/m?? as calculated from the following: Height as of 24: 5' 4 . Weight as of this encounter: 230 lb. BP: 122/68 Patient's last menstrual period was 05/06/2024. ASSESSMENT & PLAN ICD-10-CM 1. Third trimester ([facility]) Z34.93 POCT urinalysis dipstick manually resulted CULTURE, GROUP B STREP WITH SUSCEPTIBLITY CULTURE, GROUP B STREP WITH SUSCEPTIBLITY 2. 36 weeks gestation of ([facility]) Z3A.36 Patient is doing well but has [...] AM EDT Routine [facility] [address] [facility] [place] [place] [address] Kendra Smith NP [address] [address] [place] [address] Scheduled Orders Name Type Priority Associated Diagnoses Orde r Schedule CULTURE, GROUP B STREP WITH SUSCEPTIBLITY Lab Routine Third trimester ([facility]) Expected: 01/14/2025 (Approximate), Expires: 01/14/2026 US biophysical profile w non stress test Imaging Routine Third trimester ([facility]) 36 weeks gestation of ([facility]) History of placental abnormality Excessive growth affecting management of , antepartum, single or unspecified fetus ([facility]) Expected: 01/14/2025 (Approximate), Expires: 07/14/2025 documented as of this encounter Procedures Procedure Name Priority Date/Time Associated Diagnosis Comments POCT URINALYSIS DIPSTICK Routine 01/14/2025 9:48 AM EDT Third trimester ([facility]) documented in this encounter Results * [...] this encounter Visit Diagnoses Diagnosis Third trimester ([facility]) state, incidental 36 weeks gestation of ([facility]) History of placental abnormality Excessive growth affecting management of , antepartum, single or unspecified fetus ([facility]) documented in this encounter Care Teams Human Relations Manager Relationship Specialty Start Date End Date Taisha Ortiz MD [address] [place] [address] PCP - General Family Medicine 05/03/23 Stephanie Sotelo NP [address] [place], [place] [id number] PCP - [place] [employer] 07/16/24 documented as of this encounter
--- OUTSIDE RECORDS SUMMARY | 2025-01-14 09:26 | XMS_ITS ---
Author Name Auto Generated Organization OHIP Support Name Relationship Address Phone LILLIAN TAYLOR Next of Kin [address] [place] [address] + CLAUDIA LILLIAN Next of Kin [address] [facility] [address] + CLAUDIA, LILLIAN Next of Kin [address] [facility] [address] + CLAUDIA, LILLIAN Next of Kin [address] [facility] [address] + LILLIAN TAYLOR Next of Kin [address] [facility] [address] + CLAUDIA, LILLIAN Next of Kin [address] [facility] [address] + CLAUDIA, LILLIAN Next of Kin [address] [facility] [address] + CHIN SHAH Next of Kin [address] [place] [address] + LILLIAN TAYLOR Next of Kin [address] [place] [address] + CLAUDIA, LILLIAN Next of Kin [address] [place] [address] Unavailable STEJOHNATHAN, LILLIAN Next of Kin [address] [place] [address] Unavailable STEJOHNATHAN, LILLIAN Next of Kin [address] [place] [address] + STEJOHNATHAN, LILLIAN Next of Kin [address] [place] [address] + CLAUDIA, LILLIAN Next of Kin [address] [place] [address] + STETONI MANNONY Next of Kin [address] [place] [address] + LILLIAN TAYLOR Next of Kin [address] [place] [address] + Care Team Providers Care Boat Hop Name Role Phone SANJEEV, REBECA Attending Unavailable SANJEEV, REBECA Attending Unavailable ABEL, LORETTA Attending Unavailable SANJEEV, REBECA Attending Unavailable ABEL, LORETTA Attending Unavailable SANJEEV, REBECA Attending Unavailable ABEL, LORETTA Attending Unavailable SANJEEV, REBECA Attending Unavailable ABEL, LORETTA Attending Unavailable SANJEEV, REBECA Referring Unavailable BRITNEY VARELA Attending Unavailable RICHARD, Darin Cummins Attending Unavailable SANJEEV, Rebeca R Referring Unavailable Darin RICHARD Attending Unavailable SANJEEV, REBECA R Referring Unavailable BERTRAND BANEGAS Attending Unavailable SANJEEV, REBECA R Referring Unavailable SANJEEV, REBECA R Referring Unavailable PROBLEMS DATE TYPE CONDITION / CODE ATTENDING STATUS [facility] 01/27/2023 Unknown Velamentous inse rtion of umbilical cord, second trimester / O43.122(ICD-10) [facility] 10/24/2024 Unknown Polyhydramnios, unspecified trimester, not applicable or unspecified / O40.9XX0(ICD-10) [facility] 10/24/2024 Unknown Low lying placen ta nos or without hemorrhage, unspecified trimester / O44.40(ICD-10) [facility] 10/24/2024 Unknown Complete placent a previa nos or without hemorrhage, second trimester / O44.02(ICD-10) [facility] 10/24/2024 Unknown Labor and delive ry complicated by vasa previa, not applicable or unspecified / O69.4XX0(ICD-10) [facility] 10/24/2024 Unknown Supervision of with other poor reproductive or obstetric history, second trimester / O09.292(ICD-10) [facility] 09/23/2024 Unknown Encounter for ot her specified screening / Z36.89(ICD-10) [facility] 01/27/2023 Unknown Obesity complica ting , second trimester / O99.212(ICD-10) BERTRAND BANEGAS Active [facility] 09/23/2024 Unknown Vasa Previa / UNK(Unknown) BERTRAND BANEGAS Active [facility] PROCEDURES No Procedure Records Found RESULTS US OB FOLLOW UP TRANSABDOMINAL APPROACH Observed: 01/14/2025 8:58 AM Status: F Source: [facility] EPIC Order Comment: US OB SCAN FO R GROWTH Estimated Date of Delivery: 02/10/25 Gestational Age as of 12/24/2024: 33w1d FINDINGS: Comparison July 05, 2024. A single, [...] is 3946 grams (8 pounds, 11 ounces). IMPRESSION: 1. Single, live intrauterine , current [...] BY: ELECTRONICALLY SIGNED BY: Wayne Alarcon MD PATIENT EDUCATION Observed: 10/07/2024 8:53 AM Status: F Source: [facility] Patient Education Obstetrics and Gynecology Dyspareunia, Female [...] care provider who specializes in women's health (product manufacturing professional). How is this treated? Treatment for this [...] about your condition. General instructions ??? Take yrzj-bjy-ojeohuo and prescription medicines only as told by [...] activity until your symptoms improve. ??? Take gwzs-hci-egyjjsp and prescription medicines only as told by [...] provider. Document Revised: 2021 Document Reviewed: 2021 [employer] Patient Education ? 2023 [employer]. AMBULATORY VISIT SUMMARY Observed: 10/07 8:12 AM Status: F Source: [facility] Ambulatory Visit Summary HESHAM TAYLOR :2000 Visit Date:10/07/2024 Ambulatory Visit Instructions Your [...] if needed Where: [facility] [address] , [place] [address] [phone] Medications What How Much When Instructions Unchanged [...] care provider who specializes in women's health (product manufacturing professional). How is this treated? Treatment for this [...] about your condition. General instructions ??? Take wypt-xog-dpcistg and prescription medicines only as told by [...] activity until your symptoms improve. ??? Take vlwo-yok-ynbrbdc and prescription medicines only as told by [...] provider. Document Revised: 2021 Document Reviewed: 2021 [employer] Patient Education ??? 2023 [employer]. UROLOGY OFFICE/CLINIC NOTE Observed: 8:12 AM Status: F Source: [facility] Urology Office/Clinic Note Chief Complaint pt here [...] Only if needed [facility] [address] , [place] [address] [id number] Additional Instructions: Patient Education Dyspareunia, Female I, [...] Seizure: Sister. Immunizations Vaccine Date Status SARSCoV2 mRNA(aebgyamly-czql-yzwkby) vac 06/03/2021 Recorded SARS-CoV-2 (COVID-19) mRNA BNT-162b2 vax 05/13/2021 Recorded influenza virus vaccine, inactivated 02/01/2021 Recorded hepatitis B pediatric vaccine 10/29/2019 Recorded hepatitis B adult vaccine 05/14/2019 Recorded measles/mumps/rubella/varicella vaccine 04/11/2019 Recorded hepatitis B pediatric vaccine 04/11/2019 Recorded meningococcal conjugate vaccine 11/09/2017 Recorded poliovirus vaccine, inactivated 12/08/2004 Recorded measles/mumps/rubella virus vaccine 12/08/2004 Recorded diphtheria/pertussis, acel/tetanus ped 12/08/2004 Recorded measles/mumps/rubella virus vaccine 09/28/2001 Recorded poliovirus vaccine, inactivated 03/23/2001 Recorded DTaP, unspecified formulation 03/23/2001 Recorded poliovirus vaccine, inactivated 01/12/2001 Recorded DTaP, unspecified formulation 01/12/2001 Recorded poliovirus vaccine, inactivated 2000 Recorded DTaP, unspecified formulation 2000 Recorded hepatitis B pediatric vaccine 2000 Recorded Result Comment: Electronical ly Signed By: Darin RICHARD MD\.br\Date and Time Signed: 10/07/24 08:55 EDT\.br\Electronically Co-Signed By: Chichi Bautista\.br\Date and Time Co-Signed: 10/07/24 08:53 EDT PATIENT EDUCATION Observed: 08/05/2024 1:41 PM Status: F Source: [facility] Patient Education Urology Cystoscopy Cystoscopy is a [...] including vitamins, herbs, eye drops, creams, and idys-qgi-hmofjje medicines. ??? Any problems you or family [...] tells you to take them. ??? Taking ytvp-sjf-wvtywik medicines, vitamins, herbs, and supplements. Tests You [...] these instructions at home: Medicines ??? Take vbjp-gon-aclmoii and prescription medicines only as told by [...] was removed for testing (biopsy) during your procedure, it is up to you to get your test results. Ask your health care provider, or the department that is doing the test, when your results will be ready. ??? Drink enough fluid to keep your urine pale yellow. ??? Keep all follow-up visits. This is important. Contact a health care provider if: ??? You have pain that gets worse or does not get better with medicine, especially pain when you urinate. ??? You have trouble urinating. ??? You have more blood in your urine. Get help right away if: ??? You have blood clots in your urine. ??? You have abdominal pain. ??? You have a fever or chills. ??? You are unable to urinate. Summary ??? Cystoscopy is a procedure that is used to help diagnose and sometimes treat conditions that affect the lower urinary tract. ??? Cystoscopy is done using a thin, tube-shaped instrument with a light and camera at the end. ??? After the procedure, it is common to have some soreness or pain in your abdomen and urethra. ??? Watch for any blood in your urine. If the amount of blood in your urine increases, call your health care provider. ??? If you were prescribed an antibiotic medicine, take it as told by your health care provider. Do not stop taking the antibiotic even if you start to feel better. This information is not intended to replace advice given to you by your health care provider. Make sure you discuss any questions you have with your health care provider. Document Revised: 12/15/2021 Document Reviewed: 11/13/2020 [employer] Patient Education ? 2023 [employer] UROLOGY OFFICE/CLINIC NOTE Observed: 12:50 PM Status: F Source: [facility] Urology Office/Clinic Note Chief Complaint New patient [...] Darin Cummins, URL [facility] [address], [place] [address] [phone] Additional Instructions: schedule cystoscopy Patient Education Cystoscopy [...] Heart failure: Grandparent. Hypertension: Grandparent. Seizure: Sister. Result Comment: Electronical ly Signed By: Darin RICHARD MD\.br\Date and Time Signed: 08/05/24 13:46 EDT\.br\Electronically Co-Signed By: Chichi Bautista\.br\Date and Time Co-Signed: 08/05/24 13:44 EDT AMBULATORY VISIT SUMMARY Observed: 08/05 12:50 PM Status: F Source: [facility] Ambulatory Visit Summary HESHAM TAYLOR Tyshawn :2000 Visit Date:08/05/2024 Ambulatory Visit Instructions [...] Schedule the Following Appointments Follow Up with Darin RICHARD MD, URL When: Comments: schedule cystoscopy Where: [facility] [address] [place] [address] [phone] Medications What How Much When Instructions Unchanged [...] including vitamins, herbs, eye drops, creams, and kdbl-yxp-iqcveyy medicines. ??? Any problems you or family [...] tells you to take them. ??? Taking edyh-ylt-ciptwnz medicines, vitamins, herbs, and supplements. Tests You [...] these instructions at home: Medicines ??? Take dwel-tgl-ofzyhcd and prescription medicines only as told by [...] was removed for testing (biopsy) during your procedure, it is up to you to get your test results. Ask your health care provider, or the department that is doing the test, when your results will be ready. ??? Drink enough fluid to keep your urine pale yellow. ??? Keep all follow-up visits. This is important. Contact a health care provider if: ??? You have pain that gets worse or does not get better with medicine, especially pain when you urinate. ??? You have trouble urinating. ??? You have more blood in your urine. Get help right away if: ??? You have blood clots in your urine. ??? You have abdominal pain. ??? You have a fever or chills. ??? You are unable to urinate. Summary ??? Cystoscopy is a procedure that is used to help diagnose and sometimes treat conditions that affect the lower urinary tract. ??? Cystoscopy is done using a thin, tube-shaped instrument with a light and camera at the end. ??? After the procedure, it is common to have some soreness or pain in your abdomen and urethra. ??? Watch for any blood in your urine. If the amount of blood in your urine increases, call your health care provider. ??? If you were prescribed an antibiotic medicine, take it as told by your health care provider. Do not stop taking the antibiotic even if you start to feel better. This information is not intended to replace advice given to you by your health care provider. Make sure you discuss any questions you have with your health care provider. Document Revised: 12/15/2021 Document Reviewed: 11/13/2020 [employer] Patient Education ??? 2023 [employer]. US OB TRANSVAGINAL Observed: 07/05/2024 9:17 AM Status: F Source: [facility] EPIC Order Comment: US OB TRANSVA GINAL No LMP recorded. EXAM: US OB TRANSVAGINAL HISTORY: Dating. COMPARISON: [...] II, MD, PHD at 05-Jul-2024 08:37:00 PM [facility] ALLERGIES DATE TYPE / CODE NAME / CODE REACTION SEVERITY SOURCE 05/29/2017 Drug Class/952093787( SNOMED CT) NO KNOWN DRUG ALLERGIES [facility] /[id number](SNO MED CT) No Known Allergies [facility] ENCOUNTERS ADMIT/DISCHARGE ACCOUNT NUMBER ADMITTING ENCOUNTER CLASS LOCATION SOURCE 01/14/2025/01/15/20 25 [id number] Ambulatory Building:[facility] 01/14/2025/01/15/20 25 [id number] Ambulatory Building:[facility] 01/06/2025/01/07/20 25 [id number] Ambulatory Building:[facility] 12/24/2024/12/25/19 25 [id number] Ambulatory Building:[facility] 12/12/2024/12/13/19 25 [id number] Ambulatory Building:[facility] 11/28/2024/11/29/19 25 [id number] Ambulatory Building:[facility] 11/14/2024/07/31/20 25 [id number] Ambulatory Building:[facility] OB [facility] EPIC 10/24/2024/10/25/19 25 [id number] Ambulatory Buildin 10 [facility] 10/17/2024/10/18/19 25 [id number] Ambulatory Building:[facility] EPIC 10/07/2024/10/08/19 25 [id number] Ambulatory [facility] [place] : CD:[id number] 3 [facility] 09/23/2024/09/24/19 25 [id number] Ambulatory Building:PTH _MFMUS [facility] 09/23/2024/09/24/19 25 [id number] Ambulatory Buildin 4 [facility] 09/17/2024/09/18/19 25 [id number] Ambulatory Building:NOM S [facility] OB [facility] 08/20/2024/08/21/19 25 [id number] Ambulatory Building:NOM S [facility] OB [facility] 08/05/2024/08/06/19 25 [id number] Ambulatory [facility] [place] : Exam 4 [facility] 07/25/2024 [id number] [place]ulatory [place] 07/25/2024 [id number] Ambulatory [place] 07/23/2024/07/24/19 25 [id number] Ambulatory Building:[facility] EPIC 07/05/2024/07/06/19 25 [id number] Ambulatory Building:[facility] EPIC 07/05/2024/07/06/19 25 [id number] Ambulatory Building:NOM S [facility] EPIC PAYERS ENCOUNTER GUARANTOR PAYER SUBSCRIBER SOURCE 01/14/2025 HESHAM GOODEB: [id number] [place], [place] [address]Fvg: () Primary Insurance:[facility] licy Number: [id number] ctive Date:2022-04-30 LILLIAN TAYLORDOB: [id number] [address] [place] [id number] [facility] EPIC 01/14/2025 HESHAM TAYLORDOB: [id number] [place], [place] [address]Wrn: (HP) Primary Insurance:BCBSPo licy Number: [id number] ctive Date:2022-04-30 LILLIAN TAYLORDOB: [id number] N [address] [facility] EPIC 01/06/2025 HESHAM TAYLORDOB: [id number] [place], [place] [address]Jwg: (HP) Primary Insurance:BCBSPo licy Number: [id number] ctive Date:2022-04-30 LILLIAN TAYLORDOB: [id number] N [address] [facility] EPIC 12/24/2024 HESHAM TAYLORDOB: [id number] [place], [place] [address]Cpq: (HP) Primary Insurance:BCBSPo licy Number: [id number] ctive Date:2022-04-30 LILLIAN TAYLORDOB: [id number] N COS[address] [facility] EPIC 12/12/2024 HESHAM TAYLORDOB: [id number] [place], [place] [address]Wji: (HP) Primary Insurance:BCBSPo licy Number: [id number] ctive Date:2022-04-30 LILLIAN INFANTEYERDOB: [id number] N [address] [facility] EPIC 11/28/2024 HESHAM TAYLORDOB: [id number] [place], [place] [address]Rqv: (HP) Primary Insurance:BCBSPo licy Number: [id number] ctive Date:2022-04-30 LILLIAN RUSSELB: [id number] [address] [place] [id number] [facility] EPIC 11/14/2024 HESHAM GOODEB: [id number] [place], [place] [address]Ytw: (HP) Primary Insurance:BCBSPo licy Number: [id number] ctive Date:2022-04-30 LILLIAN RUSSELB: [id number] [address] [place] [id number] [facility] EPIC 10/24/2024 HESHAM GOODEB: [place], [place] [address]Omq: (HP) Primary Insurance:BLUE ACCESS (PPO)Policy Number: [id number] ctive Date:2022-04-30 LILLIAN GOODEB: [id number] [address] [address]Iib: (WP) [facility] Ambulatory [facility] 10/17/2024 HESHAM PORTER: [id number] [place], [place] [address]Ojc: (HP) Primary Insurance:BCBSPo licy Number: [id number] ctive Date:2022-04-30 LILLIAN GOODEB: [id number] [address] [place] [id number] [facility] EPIC 10/07/2024 [facility](56 (HP) Primary Insurance:[employer] Policy Number: [id number] ctive Date:2024-10-07P Brody [place], [place] [address]ME: HESHAM SANZ [facility] 09/23/2024 HESHAM GOODEB: Nikole [place], [place] [address]Dyk: (HP) Primary Insurance:BLUE ACCESS (PPO)Policy Number: [id number] ctive Date:2022-04-30 LILLIAN TAYLORDOB: [id number] [address] [address]Kkj: (WP) [facility] 09/23/2024 HESHAM GOODEB: [id number] [address] [place] [place], [place] [address]Cev: (HP) Primary Insurance:BLUE ACCESS (PPO)Policy Number: [id number] ctive Date:2022-04-30 LILLIAN TAYLORDOB: [id number] [address] [address]Ums: (WP) [facility] 09/17/2024 HESHAM GOODEB: [id number] [place], [place] [address]Quz: (HP) Primary Insurance:BCBSPo licy Number: [id number] ctive Date:2022-04-30 LILLIAN GOODEB: [id number] Nikole [address] [place] [id number] [facility] 08/20/2024 HESHAM GOODEB: [id number] Nikole [address] [place] [id number]: (HP) Primary Insurance:BCBSPo licy Number: [id number] ctive Date:2022-04-30 LILLIAN GOODEB: [id number] Nikole [address] [place] [id number] [facility] EPIC 08/05/2024 HESHAM TAYLORDOB: [id number] iNkole COSMO STTel: ~~(56 (HP) Primary Insurance:[employer] Policy Number: [id number] ctive Date:2021-03-24 Brody [place]RI[place]Y [id number] [address]RY: LILLIAN [facility] 07/25/2024 HESHAM A CLAUDIADOB: N COSMO STTel: ~(188 (HP) Primary Insurance:Arabi Policy Number: [id number] ctive Date:2024-07-25 [id number], [place] [address]OM: HESHAM Villagran [facility] 07/23/2024 HESHAM TAYLORDOB: [address] [place]Juf: (HP) Primary Insurance:BCBSPo licy Number: [id number] ctive Date:2022-04-30 LILLIAN GOODEB: [id number] [address] [place] [facility] 07/05/2024 HESHAM TAYLORDOB: [id number] [address] [place]Has: (HP) Primary Insurance:BCBSPo licy Number: [id number] ctive Date:2022-04-30 LILLIAN TAYLORDOB: [id number] [address] [place] [place] [facility] 07/05/2024 HESHAM TAYLORDOB: [id number] [address] [place] [address]Qrv: (HP) Primary Insurance:BCBSPo licy Number: [id number] ctive Date:2022-04-30 LILLIAN TAYLORDOB: [id number] [address] [place] [facility] EPIC
--- OUTSIDE RECORDS SUMMARY | 2025-01-14 20:40 | XMS_ITS | Encounter Summary ---
Author Organization [facility] Address [address] [place] [address] Care Team Providers Care Tablet Machine Operator Name Role Phone Taisha Ortiz MD Primary Care Provider [phone] Stephanie Sotelo BLE[employer]ER [employer] Unavailable [phone] Encounter Details Date Type Department Care Team (Late st Contact Info) Description 09/23/2024 External Result Encounter [facility] [address] [place] [phone] Rebeca Hidalgo DO [address] [facility] [address] [place], [place] [id number] Social History Tobacco Use Types Packs/Day Years [...] often do you attend chur ch or adventism services? 1 to 4 times per year [...] Recorded Patient Health Questionnaire-2 Score 0 05/24/2023 [facility] - Occupational Stress Questionnaire Answer Date [...] AM EDT Routine [facility] [address] [place] [address] Kendra Smith, HASMUKH [address] [facility] [place] [address] documented as of this encounter Procedures Procedure Name Priority Date/Time Associated Diagnosis Comments US OB 14+ WEEKS ANATOMY SCAN 09/23/2024 1:55 PM EDT documented in this encounter Results * US OB 14+ weeks anatomy scan (09/23/2024 1:55 PM EDT) Anatomical Region Laterality Modality Body Ultrasound 09/23/2024 1:55 PM EDT Narrative 09/23/2024 1:55 PM EDT THIS EXAM WAS PERFORMED AT [facility] NAME: CLAUDIA DAHL : 2000 SEX: F Accession Number: [id number] ORDERING PHYSICIAN: CINTIA BANEGAS REFERRING PHYSICIAN: REBECA HIDALGO Coding ----- --------- Procedures 81692: Ultrasound, uterus, real time with image documentation, and maternal evaluation plus detailed anatomic examination, transabdominal approach;single or first gestation 81968: Transvaginal Ultrasound (OB) Indication ----- --------- Screening [...] EFW (oz) 13 oz EFW by: Hadlock (LRJ-SF-RI-FL) Extended Tibia 28.7 mm 20w 3d 71% [employer] Physical [employer] Teacher 8.2 mm CM 5.6 mm 70% Nicolaides [...] Nose. Maxilla. Mandible. Orbits. Heart / Thorax 3-ybchqt-qhcmmab view. Aortic arch view. Interventricular septum. Great [...] 3.91 cm. Recommendations ----- --------- Please see [facility] documentation from today. Follow-up in 4-6 weeks is scheduled for completion of the anatomic survey Subsequent follow up or other follow up as clinically determined by primary OB provider unless otherwise specified by [facility]. Results forwarded to ordering provider so they can follow up with the patient as necessary. The copy-to physician of this order is REBECA King The ordering physician of this order is CINTIA Hartmann Procedure Note Radiology, Radiologist, - 09/23/2024 THIS EXAM WAS PERFORMED AT [facility] NAME: CLAUDIA DAHL : 2000 SEX: F Accession Number: [id number] ORDERING PHYSICIAN: CINTIA BANEGAS REFERRING PHYSICIAN: REBECA HIDALGO Coding ----- --------- Procedures 22786: Ultrasound, uterus, real time with imagedocumentation, and maternal evaluation plus detailed anatomic examination, transabdominalapproach;single or first gestation 93656: Transvaginal Ultrasound (OB) Indication ----- --------- Screening [...] EFW (oz) 13 oz EFW by: Hadlock (OXT-PD-GP-FL) Extended Tibia 28.7 mm 20w 3d 71% [employer] Teacher 8.2 mm CM 5.6 mm 70% Nicolaides [...] Nose. Maxilla. Mandible. Orbits. Heart / Thorax 0-pohsfh-mqgglda view. Aortic arch view. Interventricularseptum. Great vessels. [...] 3.91 cm. Recommendations ----- --------- Please see [facility] documentation from today. Follow-up in 4-6 weeks isscheduled for completion of the anatomic survey Subsequent follow up or other follow up as clinically determined byprimary OB provider unless otherwise specified by [facility]. Results forwarded to ordering provider so they can follow up with thepatient as necessary. The copy-to physician of this order is REBECA King The ordering physician of this order is CINTIA Hartmann us Rebeca Hidalgo DO IMG OB US PROCEDURES Final Resul t documented in this encounter Visit Diagnoses Not on filedocumented in this encounter Care Teams Tablet Machine Operator Relationship Specialty Start Date End Date Taisha Ortiz MD [address] [place], [place] [id number] PCP - General Family Medicine 05/03/23 Stephanie Sotelo NP [address] [place] [address] PCP - Carloz Eduardo 07/16/24 documented as of this encounter
--- OUTSIDE RECORDS SUMMARY | 2025-01-14 20:40 | XMS_ITS | Encounter Summary ---
Author Organization [facility] Address [address] [place] [address] Care Team Providers Care Chemical Librarian Name Role Phone Taisha Ortiz MD Primary Care Provider [phone] Stephanie Sotelo LEVI MAKER Unavailable [phone] Encounter Details Date Type Department Care Team (Late st Contact Info) Description 07/17/2024 Abstract [facility] [address] [facility] [place] [address] Don Hidalgo DO [address] [facility] [place] [address] Social History Tobacco Use Types Packs/Day Years [...] often do you attend chur ch or restorationist services? 1 to 4 times per year 05/17/2023 Do you belong to any clubs o r organizations such as denominational groups, unions, fraternal or athletic groups, or [...] 0 05/24/2023 [facility] ional [facility] - Occupational Stress Questionnaire Answer Date [...] 01/23/2025 10:20 AM EDT Routine [facility] JAVIER [address] [place] [address] Kendra Smith NP [address] [facility] [place] [address] documented as of this encounter Visit Diagnoses Not on filedocumented in this encounter Care Teams Chemical Librarian Relationship Specialty Start Date End Date Taisha Ortiz MD [address] [place] [address] PCP - General Family Medicine 05/03/23 Stephanie Sotelo NP [address] [place] [id number] PCP - Carloz Eduardo 07/16/24 documented as of this encounter
--- OUTSIDE RECORDS SUMMARY | 2025-01-14 20:40 | XMS_ITS | Clinical Summary ---
Author Organization [facility] Address [id number] [place] [address] Care Team Providers Care Invoicing Machine Operator Name Role Phone Unavailable Primary Care Provider Unavailabl e Allergies Active Allergy Reactions Criticality Noted Date Comments No Known Drug Allergies 05/29/2017 Medications [id number]-wuxv-ck lic-om3 25 mg iron-1 mg -400 mg combo pack Take by mouth. A ctive ferrous sulfate (HIGH POTENCY IRON) 27 mg iron tablet Take by mouth. Activ e wis057-ibni-il lic-om3 (DUET DHA WITH OMEGA-3) 25 mg [...] you attend chur ch or religion services? Never 01/31/2021 Do you belong to any clubs o r organizations such as jainism groups, unions, fraternal or athletic groups, or [...] Answer Date Recorded Total Score 6 01/31/2021 [facility] Occupat ional [...] Recorded Do you need help finding a [facility] and/or a training program? No [...] Relevant to Health Maintenance Results * [facility] OB FOLLOW-UP, 1 FETUS (10/24/2024 2:23 PM EDT) Anatomical Region Laterality Modality OB-GIFT CONSULTANT Ultrasound 10/24/2024 12:5 8 PM EDT Narrative 10/25/2024 12:56 PM EDT NAME: CLAUDIA DAHL : 2000 SEX: F Accession Number: [id number] ORDERING PHYSICIAN: CINTIA BANEGAS REFERRING PHYSICIAN: REBECA PACE Coding ----- --------- Procedures 93263: Follow-up Ultrasound, per fetus Indication ----- --------- [...] EFW (oz) 15 oz EFW by: Hadlock (PBZ-SZ-BB-FL) Extended Tibia 40.1 mm 25w 2d 74% Heri Senior Office Assistant 4.7 mm CM 7.6 mm 89% Nicolaides [...] view. RVOT view. LVOT view. 3-vessel view. 8-yrxoxo-ezyaflo view. Situs. Aortic arch view. Bicaval view. [...] DAHL : 2000 SEX: F Accession Number: [id number] ORDERING PHYSICIAN: CINTIA BANEGAS REFERRING PHYSICIAN: REBECA PACE Coding ----- --------- Procedures 28090: Follow-up Ultrasound, per fetus Indication ----- --------- [...] EFW (oz) 15 oz EFW by: Hadlock (WKL-GQ-GZ-FL) Extended Tibia 40.1 mm 25w 2d 74% [employer]i Senior Office Assistant 4.7 mm CM 7.6 mm 89% Nicolaides [...] 4-chamber view. RVOT view. LVOT view. 3-vessel view.6-wntgvr-cdcwmro view. Situs. Aortic arch view. Bicaval view. [...] thepatient as necessary. us Cintia Banegas MD [facility] US ORDERABLES Final Resul t * Chlamydia/GC by PCR Elisabeth Swab (11/09/2022) Chlamydia Dna(Pcr) negative MANUALLY TRANSCRIBED RESULTS Gonorrhoeae Dna(Pcr) negative MANUALLY TRANSCRIBED RESULTS us Not In System Ref Prov MICROBIOLOGY - GENERAL OR DERABLES Final Result MANUALLY TRANSCRIBED RESULTS from Last 3 Months or Most Recently Relevant to Health Maintenance Insurance ANTH
--- OUTSIDE RECORDS SUMMARY | 2025-01-14 20:40 | XMS_ITS | Encounter Summary ---
Author Organization [facility] Address [address] [place] [address] Care Team Providers Care Glove Printer Name Role Phone Taisha Ortiz MD Primary Care Provider Stephanie Sotelo SECURITY COMPLIANCE ENGINEER Unavailable [phone] Encounter Details Date Type Department Care Team (Late st Contact Info) Description 01/06/2025 Bamboo flowsheet CONY [place] OBGYNikole [address] [place] [address] Kathie Lee PA [address] [facility] [place] [address] Social History Tobacco Use Types Packs/Day Years [...] often do you attend chur ch or scientology services? 1 to 4 times per year 05/17/2023 Do you belong to any clubs o r organizations such as yazidi groups, unions, fraternal or athletic groups, or [...] Patient Health Questionnaire-2 Score 0 05/24/2023 [facility] - Occupational Stress Questionnaire [...] AM EDT Routine [facility] [address] [place] [address] Kendra Smith NP [address] [facility] [place] [address] documented as of this encounter Visit Diagnoses Not on filedocumented in this encounter Care Teams Glove Printer Relationship Specialty Start Date End Date Taisha Ortiz MD [address] [place] [address] PCP - General Family Medicine 05/03/23 Stephanie Sotelo NP [address] [place] [address] PCP - Carlzo Eduardo 07/16/24 documented as of this encounter
--- OUTSIDE RECORDS SUMMARY | 2025-01-14 20:40 | XMS_ITS | Encounter Summary ---
Author Organization [facility] Address [address] [place] [address] Care Team Providers Care Tool Designer Apprentice Name Role Phone Taisha Ortiz MD Primary Care Provider [phone] Stephanie Sotelo ACCESS REPRESENTATIVE Unavailable [phone] Encounter Details Date Type Department Care Team (Late st Contact Info) Description 07/23/2024 Abstract [facility] [address] [facility] [place] [address] Don Hidalgo DO [address] [facility] [place] [address] Social History Tobacco Use Types Packs/Day Years [...] often do you attend chur ch or alevism services? 1 to 4 times per year 05/17/2023 Do you belong to any clubs o r organizations such as latter-day groups, unions, fraternal or athletic groups, or [...] Recorded Patient Health Questionnaire-2 Score 0 05/24/2023 [facility] - Occupational Stress Questionnaire Answer [...] place to sleep or slept in a alf (including now)? No 05/17/2023 Estimated Date of [...] EDT Routine [facility] [address] [place] [address] Kendra Smith NP [address] [facility] [place] [address] documented as of this encounter Visit Diagnoses Not on filedocumented in this encounter Care Teams Tool Designer Apprentice Relationship Specialty Start Date End Date Taisha Ortiz MD [address] [place] [address] PCP - General Family Medicine 05/03/23 Stephanie Sotelo NP [address] [place] [id number] PCP - Carloz Eduardo 07/16/24 documented as of this encounter
--- OUTSIDE RECORDS SUMMARY | 2025-01-14 20:40 | XMS_ITS | Encounter Summary ---
Author Organization [facility] Address [address] [place] [address] Care Team Providers Care Compliance Consultant Name Role Phone Taisha Ortiz MD Primary Care Provider [phone] Stephanie Sotelo CORPORATE SECURITY OFFICER Unavailable [phone] Encounter Details Date Type Department Care Team (Late st Contact Info) Description 10/28/2024 Abstract [facility] [place] O[facility] [address] [facility] [place] [address] Don Hidalgo DO [address] [facility] [place] [address] Social History Tobacco Use Types Packs/Day Years [...] often do you attend chur ch or latter-day services? 1 to 4 times per year 05/17/2023 Do you belong to any clubs o r organizations such as jehovah's witness groups, unions, fraternal or athletic groups, or [...] Recorded Patient Health Questionnaire-2 Score 0 05/24/2023 [facility] - Occupational Stress Questionnaire [...] [address] [facility] [place] [address] Kendra Smith NP [address] [facility] [place] [address] documented as of this encounter Visit Diagnoses Not on filedocumented in this encounter Care Teams Compliance Consultant Relationship Specialty Start Date End Date Taisha Ortiz MD [address] [place] [address] PCP - General Family Medicine 05/03/23 Stephanie Sotelo NP [address] [place] [id number] PCP - Carloz Eduardo 07/16/24 documented as of this encounter
--- OUTSIDE RECORDS SUMMARY | 2025-01-14 20:40 | XMS_ITS | Encounter Summary ---
Author Organization [facility] Address [address] [place] [address] Care Team Providers Care Molded Parts Inspector Name Role Phone Taisha Ortiz MD Primary Care Provider [phone] Stephanie Sotelo SPOT CLEANER Unavailable Encounter Details Date Type Department Care Team (Late st Contact Info) Description 12/30/2022 Clinisync Result Encounter [facility] External Department Unsolicited Kathie Roman PA [address] [place] [address] Social History Tobacco Use Types Packs/Day Years [...] 01/23/2025 10:20 AM EDT Routine [facility] OBJEAN MARIE [address] [place] [address] Kendra Smith NP [address] [facility] [place] [address] (work) documented as of this encounter Procedures Procedure Name Priority Date/Time Associated Diagnosis Comments US OB TRANSVAGINAL 12/30/2022 5: 41 PM EDT documented in this encounter Results * US OB TRANSVAGINAL (12/30/2022 5:41 PM EDT) Anatomical Region Laterality Modality Other 12/30/2022 5:41 PM EDT Narrative 12/30/2022 5:41 PM EDT [address] [address] Ultrasound Report Signed Patient: HESHAM TAYLOR MR#: [id number] : 2000 Acct:[id number] Age/Sex: 22 / F ADM Date: 12/30/22 Loc: US Attending Dr: Kathie Roman Ordering Physician: Kathie Roman Date of Service: 12/30/22 Procedure(s): US OB transvaginal Accession Number(s): [id number] cc: Kathie Roman; Physician,Non-Staff M.D. [address] [address] Patient Name: HESHAM TAYLOR MRN: [id number] date: 2000 Sex: F Assigned Patient Location: US Current Patient Location: US Accession/Order Number: [id number] Exam Date: 12/30/2022 07:55 Report Date: 12/30/2022 [...] M.D. Signed By: 12/30/221743 DD/ 40 TD/TT: Hydrochloric Area Supervisor: Procedure Note Radiology, Radiologist, - 01/06/[address] [address] Ultrasound Report Signed Patient: HESHAM TAYLOR AMR#: [id number] : 2000Acct:[id number] Age/Sex: 22 / FADM Date: 12/30/22 Loc: US Attending Dr: Kathie Roman Ordering Physician: Kathie Roman Date of Service: 12/30/22 Procedure(s): US OB transvaginal Accession Number(s): [id number] cc: Kathie Roman; Physician,Non-Staff Ann-Marie The [address] [address] Patient Name: HESHAM TAYLOR MRN: [id number] date: 2000 Sex: F Assigned Patient Location: US Current Patient Location: US Accession/Order Number: [id number] Exam Date: 12/30/2022 07:55 Report Date: 12/30/2022 [...] Souza M.D. Signed By:12/30/221743 DD/ 40 TD/TT: Hydrochloric Area Supervisor: us Kathie [facility] Final Result documented in this encounter Visit Diagnoses Not on filedocumented in this encounter Care Teams Molded Parts Inspector Relationship Specialty Start Date End Date Taisha Ortiz MD [address] [place], [place] [phone] PCP - General Family Medicine 05/03/23 Stephanie Sotelo NP [address] [place], [place] [phone] PCP - Carloz Eduardo 07/16/24 documented as of this encounter
--- OUTSIDE RECORDS SUMMARY | 2025-01-14 20:40 | XMS_ITS | Encounter Summary ---
Author Organization [facility] Address [address] [place] [address] Care Team Providers Care Sales Account Coordinator Name Role Phone Taisha Ortiz MD Primary Care Provider [phone] Stephanie Sotelo TWISTING MACHINE OPERATOR Unavailable [phone] Encounter Details Date Type Department Care Team (Late st Contact Info) Description 09/24/2024 Abstract [facility] T[facility] OBGYNikole [address] [place] [address] [place] [address] [place], [place] Social History Tobacco Use Types Packs/Day [...] any clubs o r organizations such as voodoo groups, unions, fraternal or athletic groups, or [...] Questionnaire-2 Score 0 05/24/2023 [facility] - Occupational Stress [...] AM EDT Routine [facility] Tj JAVIER [address] [facility] [place] [address] Kendra Smith NP [address] [facility] [place] [address] documented as of this encounter Visit Diagnoses Not on filedocumented in this encounter Care Teams Sales Account Coordinator Relationship Specialty Start Date End Date Taisha Ortiz MD [address] [place] [address] PCP - General Family Medicine 05/03/23 Stephanie Sotelo NP [address] [place] [address] PCP - Stark Commercial 07/16/24 documented as of this encounter
--- OUTSIDE RECORDS SUMMARY | 2025-01-14 20:40 | XMS_ITS | Encounter Summary ---
Author Organization [facility] Address [address] [place] [address] Care Team Providers Care Filler Machine Operator Name Role Phone Taisha Ortiz MD Primary Care Provider [phone] Stephnaie Sotelo HAND HOSE CUTTER Unavailable [phone] Encounter Details Date Type Department Care Team (Late Contact Info) Description 12/08/2022 Abstract CONY JAVIER [address] [place] [address] Kathie Lee PA [address] [place] [address] [place] [address] Social History Tobacco Use Types Packs/Day Years [...] Department Care Team (Late Contact Info) Description 01/23/2025 10:20 AM EDT Routine CONY JAVIER [address] [place] [address] Kendra Smith NP [address] [place] [address] documented as of this encounter Visit Diagnoses Not on filedocumented in this encounter Care Teams Filler Machine Operator Relationship Specialty Start Date End Date Taisha Ortiz MD [address] [place] [address] PCP - General Family Medicine 05/03/23 Stephanie Sotelo NP [address] [place] [address] PCP - Carloz Eduardo 07/16/24 documented as of this encounter
--- OUTSIDE RECORDS SUMMARY | 2025-01-14 20:40 | XMS_ITS | Encounter Summary ---
Author Organization [facility] Address [address] [place] [address] Care Team Providers Care Feeder Tender Name Role Phone Taisha Ortiz MD Primary Care Provider [phone] Stephanie Sotelo RIG SUPERINTENDENT Unavailable [phone] Encounter Details Date Type Department Care Team (Late st Contact Info) Description 12/30/2022 Clinisync Result Encounter [facility] External Department Unsolicited Kathie Roman PA [address] [place] [address] Social History Tobacco Use Types Packs/Day [...] EDT Routine [facility] Tj OBJEAN MARIE [address] [facility] [place] [address] Kendra Smith NP [address] [facility] [place] [address] (work) documented as of this encounter Procedures Procedure Name Priority Date/Time Associated Diagnosis Comments US OB ANATOMY 12/30/2022 5:41 PM EDT documented in this encounter Results * US OB ANATOMY (12/30/2022 5:41 PM EDT) Anatomical Region Laterality Modality Other 12/30/2022 5:41 PM EDT Narrative 12/30/2022 5:41 PM EDT [address] [address] Ultrasound Report Signed Patient: HESHAM TAYLOR MR#: [id number] : 2000 Acct:[id number] Age/Sex: 22 / F ADM Date: 12/30/22 Loc: US Attending Dr: Kathie Roman Ordering Physician: Kathie Roman Date of Service: 12/30/22 Procedure(s): US OB anatomy Accession Number(s): [id number] cc: Kathie Roman; Physician,Non-Staff M.D. [address] [address] Patient Name: HESHAM TAYLOR MRN: [id number] date: 2000 Sex: F Assigned Patient Location: Current Patient Location: Accession/Order Number: [id number] Exam Date: 12/30/2022 07:55 Report Date: 12/30/2022 [...] M.D. Signed By: 12/30/221743 DD/ 40 TD/TT: Package Sorter: Procedure Note Radiology, Radiologist, MD - 01/06/2023 The [place] [id number] Ultrasound Report Signed Patient: HESHAM TAYLOR AMR#: [id number] : 2000Acct:[id number] Age/Sex: 22 FADM Date: 12/30/22 Loc: US Attending Dr: Kathie Roman Ordering Physician: Kathie Roman Date of Service: 12/30/22 Procedure(s): US OB anatomy Accession Number(s): [id number] cc: Kathie Roman; Physician,Non-Staff Ann-Marie The [address] [address] Patient Name: HESHAM TAYLOR MRN: [id number] date: 2000 Sex: F Assigned Patient Location: US Current Patient Location: US Accession/Order Number: [id number] Exam Date: 12/30/2022 07:55 Report Date: 12/30/2022 [...] Souza M.D. Signed By:12/30/221743 DD/ 40 TD/TT: Package Sorter: us Kathie [facility] Final Result documented in this encounter Visit Diagnoses Not on filedocumented in this encounter Care Teams Feeder Tender Relationship Specialty Start Date End Date Taisha Ortiz MD [address] [place] [address] PCP - General Family Medicine 05/03/23 Stephanie Sotelo NP [address] [place] [address] PCP - Carloz Eduardo 07/16/24 documented as of this encounter
--- OUTSIDE RECORDS SUMMARY | 2025-01-14 20:40 | XMS_ITS | Clinical Summary ---
Author Organization [facility] Address [address] [place] [address] Care Team Providers Care Concrete Curer Name Role Phone Taisha Pena MD Primary Care Provider [phone] Stephanie Sotelo FREIGHT CLAIM INVESTIGATOR Unavailable [phone] Allergies No known active allergies Medications [id number]- FA (PRE- PO) Take 1 each by [...] Resolved Date Obesity affecting in second trimester ([facility]) 01/27/2023 04/25/2023 Velamentous insertion of umb ilical cord in second trimester ([facility]) 01/27/2023 04/25/2023 Encounters Date Type Department Care Team Description 01/14/2025 9:20 [place] [id number] Kendra Smith NP Third trimester ([facility]); 36 weeks gestation of ([facility]); History of placental abnormality; Excessive growth affecting management of , antepartum, single or unspecified fetus ([facility]) 01/14/2025 9:00 AM EDT Ancillary Procedure [place] [place] [address] Excessive growth affecting management of , antepartum, single or unspecified fetus ([facility]) 01/06/2025 10:20 AM EDT Routine [facility] [place] [address] Kathie Lee PA Third trimester ([facility]); 35 weeks gestation of ([facility]) 01/06/2025 Bamboo flowsheet [facility] [place] [address] Kathie Lee PA 12/24/2024 10:00 AM EDT Routine [facility] [address] Rebeca Hidalgo DO Third trimester ([facility]); 33 weeks gestation of ([facility]); History of placental abnormality; Excessive growth affecting management of , antepartum, single or unspecified fetus ([facility]) 12/24/2024 Bamboo flowsheet [facility] [address] [place] [address] [place] [address] Rebeca Hidaglo DO 12/14/2024 Clinisync Result Encounter [facility] External Department Unsolicited Provider, Generic External Data 12/12/2024 10:10 AM EDT Routine [facility] [address] Kathie Lee PA Third trimester ([facility]); 31 weeks gestation of ([facility]) 12/12/2024 Bamboo flowsheet [facility] [address] Kathie Lee PA 11/28/2024 8:30 AM EDT Routine [facility] [place] [address] Rebeca Hidalgo DO Third trimester ([facility]); 29 weeks gestation of ([facility]); History of placental abnormality; Excessive growth affecting management of in third trimester, single or unspecified fetus ([facility]) 11/28/2024 Bamboo flowsheet [facility] [address] [place] [address] Rebeca Hidalgo DO 11/16/2024 Clinisync Result Encounter [facility] External Department Unsolicited Provider, Generic External Data 11/14/2024 11:20 AM EDT Routine [place] [place] [address] Kathie Lee PA Second trimester ([facility]); 27 weeks gestation of ([facility]) 11/14/2024 Bamboo flowsheet [facility] [address] [facility] [place] [address] Kathie Lee PA 11/09/2024 Travel 10/28/2024 Abstract [facility] [address] [place] [address] Rebeca Hidalgo DO 10/17/2024 8:10 AM EDT Routine [facility] [address] [place] [address] Rebeca Hidalgo DO Second trimester ([facility]); 23 weeks gestation of ([facility]); Diabetes mellitus screening 10/17/2024 Bamboo flowsheet [facility] [address] [facility] [place] [address] Rebeca Hidalgo DO from Last 3 Months [...] often do you attend chur ch or mormonism services? 1 to 4 times per year 05/17/2023 Do you belong to any clubs o r organizations such as mu-ism groups, unions, fraternal or athletic groups, or [...] Recorded Patient Health Questionnaire-2 Score 0 05/24/2023 [facility] - Occupational Stress Questionnaire Answer Date [...] Pressure 122/68 01/14/2025 9:32 AM EDT Pulse 63 05/24/2023 2:05 PM EST Temperature - - Respiratory Rate 20 05/24/2023 2:05 PM EST Oxygen Saturation 96% 05/24/2023 2:05 PM EST Inhaled Oxygen Concentration - - Weight 104 kg (230 lb) 01/14/2025 9:32 AM EDT Height 162.6 cm (5' 4 ) 11/21/2023 2:10 PM EDT Body Mass Index 39.48 11/21/2023 2:10 PM EDT Plan of Treatment Upcoming Encounters Date Type Department Care Team (Late st Contact Info) Description 01/23/2025 10:20 AM EDT Routine [facility] [address] [place] [address] Kendra Smith, HASMUKH [address] [facility] [place] [address] Health Maintenance Due Date Last Done Comments Influenza Vaccine (#1) 2024 02/01/2021 Procedures Procedure Name Priority Date/Time Associated Diagnosis Comments POCT URINALYSIS DIPSTICK Routine 01/14/2025 9:48 AM EDT Third trimester ([facility]) US OB FOLLOW UP TRANSABDOMINAL APPROACH Routine 01/14/2025 9:27 AM EDT Excessive growth affecting management of , antepartum, single or unspecified fetus ([facility]) POCT URINALYSIS DIPSTICK Routine 01/06/2025 10:42 AM EDT Third trimester ([facility]) POCT URINALYSIS DIPSTICK Routine 12/24/2024 10:13 AM EDT Third trimester ([facility]) US OB GROWTH 12/14/2024 11:17 AM EDT POCT URINALYSIS DIPSTICK Routine 12/12/2024 11:01 AM EDT Third trimester ([facility]) POCT URINALYSIS DIPSTICK Routine 11/28/2024 8:48 AM EDT Third trimester ([facility]) GLUCOSE 1 HOUR Routine 11/16/2024 10:06 AM EDT ALL CBC WITH AUTO DIFF Routine 10:06 AM EDT POCT URINALYSIS DIPSTICK Routine 11/14/2024 11:35 AM EDT Second trimester ([facility]) POCT URINALYSIS DIPSTICK Routine 10/17/2024 9:01 AM EDT Second trimester ([facility]) from Last 3 Months Results * (ABNORMAL) POCT urinalysis dipstick manually resulted (01/14/2025 9:48 AM EDT) Only the most recent of7 resultswithin the time period is included. Color, UA Yellow Clarity, UA Clear Glucose, UA Negative Negative - 1999(110) ++++ mg/dL Bilirubin, UA Negative Negative - 4(70) +++ mg/dL Ketones, UA Negative Negative - 160(16) ++++ mg/dL Spec Grav, UA 1.020 1 - 1.03 Blood, UA Negative Negative - 50 Eulogio/mcL pH, UA 6.0 5 - 9 Protein, UA 1+ Negative - 1999(20) ++++ mg/dL Urobilinogen, UA 1.0 0.2 - 12 mg/dL Leukocytes, UA Negative Negative - 500+++ Rufina/mcL Nitrite, UA Negative Negative - Positive Urine 01/14/2025 9:48 AM EDT Kendra Smith NP POINT OF CARE TEST ENTER/EDIT ORDERABLES Final Result * US OB follow up transabdominal approach [...] ELECTRONICALLY SIGNED BY: Wayne Alarcon MD us Rebeca Rocky DO IMG OB US PROCEDURES Final Resul t * US OB GROWTH (12/14/2024 11:17 AM EDT) Anatomical Region Laterality Modality Other 12/14/2024 11:1 7 AM EDT Narrative 12/14/2024 11:19 AM EDT The [address] [address] Ultrasound Report Signed Patient: HESHAM AVALOS MR#: [id number] : 2000 Acct:[id number] Age/Sex: 24 / F ADM Date: 12/14/24 Loc: US Attending Dr: Rebeca Hidalgo D.O. Ordering Physician: Rebeca Hidalgo D.O. Date of Service: 12/14/24 Procedure(s): US OB growth Accession Number(s): [id number] cc: Rebeca Hidalgo D.O.; TAISHA PENA [place] [address] Patient Name: HESHAM AVALOS MRN: [id number] date: 2000 Sex: F Assigned Patient Location: US Current Patient Location: US Accession/Order Number: [id number] Exam Date: 12/14/2024 09:50 Report Date: 12/14/2024 [...] Atkinson M.D. 12/14/2024 11:17 AM Dictation Location: [facility] Electronically authenticated by: [id number] Y Date: 12/14/2024 11:17 Dictated By: Wilfrido Atkinson M.D. Signed By: 12/14/24 1119 DD/ 1117 TD/TT: Co Director: Procedure Note Radiology, Radiologist, - 12/14/2024 [place] [address] Ultrasound Report Signed Patient: HESHAM AVALOS AMR#: [id number] : 2000Acct:[id number] Age/Sex: 24 / FADM Date: 12/14/24 Loc: US Attending Dr: Rebeca Hidalgo D.O. Ordering Physician: Rebeca Hidalgo D.O. Date of Service: 12/14/24 Procedure(s): US OB growth Accession Number(s): [id number] cc: Rebeca Hidalgo D.O.; TAISHA PENA The [place] [id number] Patient Name: HESHAM AVALOS MRN: [id number] date: 2000 Sex: F Assigned Patient Location: Current Patient Location: US Accession/Order Number: [id number] Exam Date: 12/14/2024 09:50 Report Date: 12/14/2024 [...] AM Dictation Location: [id number]-[id number] Electronically authenticated by: [id number] Y Date: :17 Dictated By: Wilfrido Atkinson M.D. Signed By:12/14/24 1119 DD/ 1117 TD/TT: Co Director: us Generic External Data Provider [facility] Final Result * GLUCOSE 1 HOUR (11/16/2024 10:06 AM EDT) Pathologist [facility] GLUCOSE 1 HOUR 120 <130 mg/dL TB 11/16/2024 10:0 6 AM EDT 11/16/2024 10:07 AM EDT Narrative [facility] - 11/16/2024 10:45 AM EDT us Rebeca Rocky DO LAB BLOOD ORDERABLES Final Resul t [facility] * (ABNORMAL) ALL CBC WITH AUTO DIFF (11/16/2024 10:06 AM EDT) Pathologist [facility] TB WBC 9.0 4.0 - 11.0 10 3/uL [facility] TB RBC 3.43(L) 4.20 - 5.40 10 6/uL TBH TBH HGB 10.6(L) 12.0 - 16.0 g/dL TB TB HCT 32.3(L) 36.0 - 48.0 % TBH TB MCV 94.2 81.0 - 99.0 fL TBH TBH MCH 30.9 26.7 - 34.0 pg TBH TBH MCHC 32.8 29.9 - 35.2 g/dL TB TB RDW 13.7 11.0 - 15.0 % TBH [...] [facility] from Last 3 Months Insurance [facility] Care Teams Concrete Curer Relationship Specialty Start Date End Date Taisha Pena MD [address] [place] [address] PCP - General Family Medicine 05/03/23 Stephanie Sotelo NP [address] [place] [address] PCP - Carloz Eduardo 07/16/24
== END 2025-01-14 20:37 | disposition home or self-care (01) ==
LOC: LAB 20:36
PROVIDERS: PCP Family Medicine; Visit Provider Nurse Practitioner Family
DX: Z34.93 Encounter for supervision of normal pregnancy, unspecified, third trimester (principal); Z3A.36 36 weeks gestation of pregnancy
CPT/HCPCS: 87081

== ENCOUNTER 2025-01-18 10:08 | Outpatient (OUT) | payer BC, SELFPAY ==
--- OUTSIDE RECORDS SUMMARY | 2025-01-06 10:20 | XMS_ITS | Encounter Summary ---
Author Organization [facility] Address [address] [place] [address] Care Team Providers Care Buggyman Name Role Phone Taisha Ortiz MD Primary Care Provider [phone] Stephanie Sotelo FILTER PLANT OPERATOR Unavailable [phone] Reason for Visit * Reason Comments Routine Visit Encounter Details Date Type Department Care Team (Late Contact Info) Description 01/06/2025 10:20 AM EDT Routine [facility] [address] [place] [id number] Kathie Lee PA [address] [place], [place] [id number] Third trimester ([facility]); 35 weeks gestation of ([facility]) Social History Tobacco Use Types Packs/Day [...] any clubs o r organizations such as zoroastrian groups, unions, fraternal or athletic groups, or [...] Recorded Patient Health Questionnaire-2 Score 0 05/24/2023 [facility] - Occupational [...] place to sleep or slept in a fpc (including now)? No 05/17/2023 Estimated Date of [...] Sign Reading Time Taken Comments Blood Pressure 122/66 01/06/2025 10:44 AM EDT Pulse - - Temperature - - Respiratory Rate - - Oxygen Saturation - - Inhaled Oxygen Concentration - - Weight 103 kg (228 lb 2 oz) 01/06/2025 10:44 AM EDT Height - - Body Mass Index 39.16 11/21/2023 2:10 PM EDT documented in this encounter Progress Notes * DIMAS Cormier - 01/06/2025 10:20 AM EDT Reason for Appointment: Patient ID: Shelby Avalos is a 24 y.o. female who presents for Routine Visit Patient presents today for Return OB appointment. MEDICATIONS Current Outpatient Medications Medication Instructions Ferrous Gluconate (IRON 27 PO) 1 each, Daily Hsdqjmnu-Ryi-To-FA (PRE- PO) 1 each, Daily ALLERGIES No Known Allergies PROBLEMS Active Ambulatory Problems Diagnosis Date Noted History of placental abnormality 12/24/2024 Resolved Ambulatory Problems Diagnosis Date Noted Obesity affecting in second trimester ([facility]) 01/27/2023 Velamentous insertion of umbilical cord in second trimester ([facility]) 01/27/2023 Past Medical History: Diagnosis Date 6 weeks follow-up ([facility]) HISTORY PAST MEDICAL HISTORY SOCIAL HISTORY Past Medical History: Diagnosis Date 6 weeks follow-up ([facility]) Social History Tobacco Use Smoking status: [...] reviewed. Vitals: Estimated body mass index is 39.16 kg/m?? as calculated from the following: Height as of 8/6/24: 5' 4 . Weight as of this encounter: 228 lb 2 oz. BP: 122/66 Patient's last menstrual period was 05/06/2024. ASSESSMENT & PLAN ICD-10-CM 1. Third trimester ([facility]) Z34.93 POCT urinalysis dipstick manually resulted 2. 35 weeks gestation of ([facility]) Z3A.35 Return OB: Patient presents today for a routine obstetrics appointment. Patient is currently 35w0d . Patient states she is doing well but has complaints of being tired due to current . Patient has verbalizes frequent movement. labor precautions was discussed/given and patient was instructed to perform kick counts three times a day. Orders Placed This Encounter Procedures POCT urinalysis dipstick manually resulted Follow Up: Patient is to return to office in 1 week for routine OB appointment. Documented by DIMAS Cormier on behalf of: DIMAS Cormier documented in this encounter Plan of Treatment Upcoming Encounters Date Type Department Care Team (Late st Contact Info) Description 01/23/2025 10:20 AM EDT Routine [facility] [address] [place] [address] Kendra Smith, HASMUKH [address] [place] [address] documented as of this encounter Procedures Procedure Name Priority Date/Time Associated Diagnosis Comments POCT URINALYSIS DIPSTICK Routine 01/06/2025 10:42 AM EDT Third trimester ([facility]) documented in this encounter Results * (ABNORMAL) POCT urinalysis dipstick manually resulted (01/06/2025 10:42 AM EDT) Color, UA Yellow Clarity, UA Clear Glucose, UA Negative Negative - 2000(110) ++++ mg/dL Bilirubin, UA Positive Negative - 4(70) +++ mg/dL Comment:1+ Ketones, UA Positive Negative - 160(16) ++++ mg/dL Comment:Trace Spec Grav, UA 1.025 1 - 1.03 Blood, UA Negative Negative - 50 Eulogio/mcL pH, UA 6.0 5 - 9 Protein, UA Positive Negative - 2000(20) ++++ mg/dL Comment:1+ Urobilinogen, UA 0.2 0.2 - 12 mg/dL Leukocytes, UA Positive Negative - 500+++ Rufina/mcL Comment:1+ Nitrite, UA Negative Negative - Positive Urine 01/06/2025 10:4 2 AM EDT Kathie COCHRAN POINT OF CARE TEST ENTER/EDIT OR DERABLES Final Result documented in this encounter Visit Diagnoses Diagnosis Third trimester ([facility]) state, incidental 35 weeks gestation of ([facility]) documented in this encounter Care Teams Buggyman Relationship Specialty Start Date End Date Taisha Ortiz MD [address] [facility] [place] [address] PCP - General Family Medicine 05/03/23 Stephanie Sotelo NP [address] [facility] [place] [address] PCP - Carloz Eduardo 07/16/24 documented as of this encounter
--- OUTSIDE RECORDS SUMMARY | 2025-01-14 09:00 | XMS_ITS | Encounter Summary ---
Author Organization [facility] Address [address] [place] [address] Care Team Providers Care Delimer Name Role Phone Taisha Ortiz MD Primary Care Provider [phone] Stephanie Sotelo SHELTERED WORKSHOP WORKER Unavailable Encounter Details Date Type Department Care Team (Latest Contact Info) Description 01/14/2025 9:00 AM EDT Ancillary Procedure [facility] [address] [place] [address] [place] [address] Excessive growth affecting management of , antepartum, single or unspecified fetus ([facility]) Social History Tobacco Use Types Packs/Day [...] often do you attend chur ch or confucianism services? 1 to 4 times per year 05/17/2023 Do you belong to any clubs o r organizations such as orthodox groups, unions, fraternal or athletic groups, or [...] Recorded Patient Health Questionnaire-2 Score 0 05/24/2023 [facility] - Occupational Stress Questionnaire Answer Date [...] AM EDT Routine [facility] [address] [place] [place] [address] Kendra Smith, HASMUKH [address] [place] [address] documented as of this encounter Procedures Procedure Name Priority Date/Time Associated Diagnosis Comments US OB FOLLOW UP TRANSABDOMINAL APPROACH Routine 01/14/2025 9:27 AM EDT Excessive growth affecting management of , antepartum, single or unspecified fetus ([facility]) documented in this encounter Results * [...] of , antepartum, single or unspecified fetus ([facility]) documented in this encounter Care Teams Delimer Relationship Specialty Start Date End Date Taisha Ortiz MD [address] [place] [address] PCP - General Family Medicine 05/03/23 Stephanie Sotelo NP [address] [place] [address] PCP - Carloz Eduardo 07/16/24 documented as of this encounter
--- OUTSIDE RECORDS SUMMARY | 2025-01-14 09:20 | XMS_ITS | Encounter Summary ---
Author Organization [facility] Address [address] [place] [address] Care Team Providers Care Industrial Painter Name Role Phone Taisha Ortiz MD Primary Care Provider [phone] Stephanie Sotelo SOIL BIOLOGY TEACHER Unavailable [phone] Reason for Visit * Reason Comments Routine Visit Encounter Details Date Type Department Care Team (Late Contact Info) Description 01/14/2025 9:20 AM EDT Routine [facility] [address] [place] [address] Kendra Smith, HASMUKH [address] [facility] [place] [address] Third trimester ([facility]); 36 weeks gestation of ([facility]); History of placental abnormality; Excessive growth affecting management of , antepartum, single or unspecified fetus ([facility]) Social History Tobacco Use Types Packs/Day Years [...] Recorded Patient Health Questionnaire-2 Score 0 05/24/2023 [facility] of Occupat ional Health - Occupational Stress [...] place to sleep or slept in a skilled nursing (including now)? No 05/17/2023 Estimated Date of [...] Gluconate (IRON 27 PO) 1 each, Daily Eaycnavd-Tjx-Zz-FA (PRE- PO) 1 each, Daily ALLERGIES No Known Allergies PROBLEMS Active Ambulatory Problems Diagnosis Date Noted History of placental abnormality 12/24/2024 Resolved Ambulatory Problems Diagnosis Date Noted Obesity affecting in second trimester ([facility]) 01/27/2023 Velamentous insertion of umbilical cord in second trimester ([facility]) 01/27/2023 Past Medical History: Diagnosis Date 6 weeks follow-up ([facility]) HISTORY PAST MEDICAL HISTORY SOCIAL HISTORY Past Medical History: Diagnosis Date 6 weeks follow-up ([facility]) Social History Tobacco Use Smoking status: Never [...] nursing note reviewed. Exam conducted with a water chemist present. Vitals: Estimated body mass index is 39.48 kg/m?? as calculated from the following: Height as of 24: 5' 4 . Weight as of this encounter: 230 lb. BP: 122/68 Patient's last menstrual period was 05/06/2024. ASSESSMENT & PLAN ICD-10-CM 1. Third trimester ([facility]) Z34.93 POCT urinalysis dipstick manually resulted CULTURE, GROUP B STREP WITH SUSCEPTIBLITY CULTURE, GROUP B STREP WITH SUSCEPTIBLITY 2. 36 weeks gestation of ([facility]) Z3A.36 Patient is doing well but has [...] AM EDT Routine [facility] [address] [facility] [place] [address] Kendra Smith NP [address] [place] [address] Scheduled Orders Name Type Priority Associated Diagnoses Orde r Schedule CULTURE, GROUP B STREP WITH SUSCEPTIBLITY Lab Routine Third trimester ([facility]) Expected: 01/14/2025 (Approximate), Expires: 01/14/2026 US biophysical profile w non stress test Imaging Routine Third trimester ([facility]) 36 weeks gestation of ([facility]) History of placental abnormality Excessive growth affecting management of , antepartum, single or unspecified fetus ([facility]) Expected: 01/14/2025 (Approximate), Expires: 07/14/2025 documented as of this encounter Procedures Procedure Name Priority Date/Time Associated Diagnosis Comments POCT URINALYSIS DIPSTICK Routine 01/14/2025 9:48 AM EDT Third trimester ([facility]) documented in this encounter Results * (ABNORMAL) [...] this encounter Visit Diagnoses Diagnosis Third trimester ([facility]) state, incidental 36 weeks gestation of ([facility]) History of placental abnormality Excessive growth affecting management of , antepartum, single or unspecified fetus ([facility]) documented in this encounter Care Teams Industrial Painter Relationship Specialty Start Date End Date Taisha Ortiz MD [address] [place] [address] PCP - General Family Medicine 05/03/23 Stephanie Sotelo NP [address] [place], [place] [id number] PCP - [place] [employer] 07/16/24 documented as of this encounter
--- OUTSIDE RECORDS SUMMARY | 2025-01-18 10:10 | XMS_ITS | CCD ---
Author Organization [facility] Care Team Providers Care Screen Printing Inspector Name Role Phone DR DON HIDALGO Admitting [...] Unavailable ROCKY, Don R Referring Unavailable Ashleigh BUTTONHOLE MACHINE OPERATOR, Stephanie Villagran Unavailable ROCKY, DON R Referring Unavailable ROCKY, DON Attending Unavailable ROCKY, DON Attending Unavailable JESUS, KATHIE Attending Unavailable ROCKY, DON Attending Unavailable JESUS, KATHIE Attending Unavailable ROCKY, DON Attending Unavailable JESUS, KATHIE Attending Unavailable ROCKY, DON Attending Unavailable JESUS, KATHIE Attending Unavailable Medications Current Medications Medication [...] procedure, # 2 cap(s), Refills(s) 0, Pharmacy: [facility] [id number], 163, cm, 08/05/24 13:19:00 EDT, Height/Length Dosing, [...] mg iron tablet Take by mouth. Active Nmtnhr-NhUzmt-Bcofw-FA-[place] 3 (Duet DHA 400) 25-1 & 400 MG misc (2 sources) Olmfsu-PrRtos-Hw hqt-BT-Tngio 3 (Duet DHA 400) 25-1 & 400 MG misc Take by mouth. 0 Active Sgkwjlne-Ctx-Tk-FA (PRE-SIGIFREDO PO) (20 sources) take 1 dose by mouth once daily Upxefssu-Pvs-Lf-FA (PRE- PO) Take 1 each by mouth Daily Active Multivitamins (1 source) Start : 07-31 take 1 tablet by mouth once daily Multivitamins 1 tab(s), Oral, Daily, Refill(s) 0 Start Date: 07/31/24 Status: Ordered Repeat number: 1 ufe616-erzs-xxmzk-o m3 (DUET DHA WITH OMEGA-3) 25 mg iron-1 mg -400 mg combo pack (4 sources) lyw250- ewsl-colwf-nd4 (DUET DHA WITH OMEGA-3) 25 mg iron-1 mg -400 mg combo pack Take by mouth. Active ony753- ewuu-qrqgh-oy3 (DUET DHA WITH OMEGA-3) 25 mg iron-1 mg -400 mg combo pack Take by mouth. 0 Active kke048-oimz-hyaxh-i m3 25 mg iron-1 mg -400 mg combo pack (4 sources) fey064- ulwr-ybqvt-do8 25 mg iron-1 mg -400 mg combo pack Take by mouth. Active lkn124- tbmw-aujtq-rs9 25 mg iron-1 mg -400 mg combo [...] trimester] Onset: 10-24-2024 Episodic Other complications of (6 sources) Excessive growth affecting management of mother; [...] 07-23-2024 Episodic Other and delivery including normal (19 sources) First trimester ; Translations: [Encounter for [...] Onset: 10-24-2024 04-12-2023 Episodic Residual codes; unclassified (3 sources) Gestation period, 35 weeks; Translations: [35 weeks gestation of ] 04-12-2023 Episodic Residual codes; unclassified (1 source) Gestation period, 11 weeks; Translations: [11 weeks gestation of ] 07-23-2024 Episodic Residual codes; unclassified (14 sources) H/O: Disorder; Translations: [Personal history of [...] [33 weeks gestation of ] 12-24-2024 Episodic Residual codes; unclassified (2 sources) Gestation period, 36 weeks; Translations: [36 weeks gestation of ] 01-14-2025 Episodic Past or Other Problems Problem Classification Problem Date Documented Da te Episodic/Chronic Mood disorders (4 sources) Mood disorders Onset: 01-31-2021 01-31-2021 Other complications of (20 sources) Maternal obesity complicating , childbirth and the puerperium, antepartum; Translations: [Obesity complicating , second trimester] Onset: 01-27-2023 Resolved: 04-25-2023 05-24-2023 Chronic Umbilical cord complication (20 sources) Velamentous insertion of umbilical cord; Translations: [Velamentous insertion of umbilical cord, second trimester] Onset: 01-27-2023 Resolved: 04-25-2023 05-24-2023 Episodic NEGATED: Highlighted row has been ruled out!Unclassified (20 sources) No known active problems 05-24-2023 Results Test Name Value Interpretation Reference Range Facility Urinalysis macro (dipstick) panel (U)on 01-14-2025 Bilirubin, UA Negative Negative - 4(70) +++ mg/dL [facility] Blood, UA Negative Negative - 50 Eulogio/mcL [facility] Clarity, UA Clear [facility] re Color, UA Yellow [facility] Glucose, UA Negative Negative - 1999(110) ++++ mg/dL [facility] Interpretation and review of laboratory results Abnormal [facility] Ketones, UA Negative Negative - 160(16) ++++ mg/dL [facility] Leukocytes, UA Negative Negative - 500+++ Rufina/mcL [facility] Nitrite, UA Negative Negative - Positive [facility] pH, UA 6 5 - 9 [facility] Protein, UA 1+ Negative - 1999(20) ++++ mg/dL [facility] Spec Grav, UA 1.02 1 - 1.[address] [facility] care Urobilinogen, UA 1.0 0.2 - 12 mg/dL [facility] Urinalysis macro (dipstick) panel (U)on 01-06-2025 Bilirubin, UA Positive Negative - 4(70) +++ mg/dL [facility] Comment on above: 1+ Blood, UA Negative Negative - 50 Eulogio/mcL [facility] Clarity, UA Clear [facility] Color, UA Yellow [facility] Glucose, UA Negative Negative - 1999(110) ++++ mg/dL [facility] Interpretation and review of laboratory results Abnormal [facility] Ketones, UA Positive Negative - 160(16) ++++ mg/dL [facility] Comment on above: Trace Leukocytes, UA Positive Negative - 500+++ Rufina/mcL [facility] Comment on above: 1+ Nitrite, UA Negative Negative - Positive [facility] pH, UA 6 5 - 9 [facility] Protein, UA Positive Negative - 1999(20) ++++ mg/dL [facility] Comment on above: 1+ Spec Grav, UA 1.025 1 - 1.03 [facility] Urobilinogen, UA 0.2 0.2 - 12 mg/dL [facility] Urinalysis macro (dipstick) panel (U)on 12-24-2024 Bilirubin, UA Negative Negative - 4(70) +++ mg/dL [facility] Blood, UA Negative Negative - 50 Eulogio/mcL [facility] Clarity, UA Clear [facility] Color, UA Yellow [facility] Glucose, UA Negative Negative - 1999(110) ++++ mg/dL [facility] Interpretation and review of laboratory results Abnormal [facility] Ketones, UA Negative Negative - 160(16) ++++ mg/dL [facility] Leukocytes, UA Negative Negative - 500+++ Rufina/mcL [facility] Nitrite, UA Negative Negative - Positive [facility] pH, UA 6.5 5 - 9 [facility] Protein, UA 1+ Negative - 1999(20) ++++ mg/dL [facility] Spec Grav, UA 1.015 1 - 1.03 [facility] Urobilinogen, UA 1.0 0.2 - 12 mg/dL [facility] US OB GROWTHon 12-14-2024 [place] [address] Ultrasound Report Signed Patient: HESHAM AVALOS MR#: [id number] : 2000 Acct:[id number] Age/Sex: 24 / F ADM Date: 12/14/24 Loc: US Attending Dr: Don Hidalgo D.O. Ordering Physician: Don Hidalgo D.O. Date of Service: 12/14/24 Procedure(s): US OB growth Accession Number(s): [id number] cc: Don Hidalgo D.O.; TAISHA PENA The [place] [id number] Patient Name: HESHAM AVALOS MRN: [facility]:[id number] date: 2000 Sex: F Assigned Patient Location: US Current Patient Location: US Accession/Order Number: [id number] Exam Date: 12/14/2024 09:50 Report Date: 12/14/2024 [...] Atkinson M.D. 12/14/2024 11:17 AM Dictation Location: [place] [address] Electronically authenticated by: [id number] Y Date: 12/14/2024 11:17 Dictated By: Wilfrido Atkinson M.D. Signed By: 12/14/24 1119 DD/ 1117 TD/TT: Computer Support Specialist Instructor: [facility] Radiology, Radiologist, - 12/14/[address] [address] Ultrasound Report Signed Patient: HESHAM AVALOS MR#: [id number] : 2000 Acct:[id number] Age/Sex: 24 / F ADM Date: 12/14/24 Loc: US Attending Dr: Don Hidalgo D.O. Ordering Physician: Don Hidalgo D.O. Date of Service: 12/14/24 Procedure(s): US OB growth Accession Number(s): [id number] cc: Don Hidalgo D.O.; TAISHA PENA [place] [address] Patient Name: HESHAM AVALOS MRN: [facility]:[id number] date: 2000 Sex: F Assigned Patient Location: US Current Patient Location: US Accession/Order Number: [id number] Exam Date: 12/14/2024 09:50 Report Date: 12/14/2024 [...] Atkinson M.D. 12/14/2024 11:17 AM Dictation Location: [place] [address] Electronically authenticated by: [id number] Y Date: 12/14/2024 11:17 Dictated By: Wilfrido Atkinson M.D. Signed By: 12/14/24 1119 DD/ 1117 TD/TT: Computer Support Specialist Instructor: [facility] Radiology Study observation (narrative) [facility] US OB GROWTHOrdered By: Nini ologist Radiology on 12-14-2024 [facility] Work Phone: Urinalysis macro (dipstick) panel (U)on 12-12-2024 Bilirubin, UA Negative Negative - 4(70) +++ mg/dL [facility] Blood, UA Negative Negative - 50 Eulogio/mcL [facility] Clarity, UA Clear [facility] Color, UA Hattie [facility] Glucose, UA Negative Negative - 1999(110) ++++ mg/dL [facility] Interpretation and review of laboratory results Abnormal [facility] Ketones, UA Negative Negative - 160(16) ++++ mg/dL [facility] Leukocytes, UA Positive Negative - 500+++ Rufina/mcL [facility] Comment on above: Trace Nitrite, UA Negative Negative - Positive [facility] pH, UA 6 5 - 9 [facility] Protein, UA Positive Negative - 1999(20) ++++ mg/dL [facility] Comment on above: 1+ Spec Grav, UA 1.02 1 - 1.[address] [facility] care Urobilinogen, UA 0.2 0.2 - 12 mg/dL [facility] Urinalysis macro (dipstick) panel (U)on 11-28-2024 Bilirubin, UA 1+ Negative - 4(70) +++ mg/dL [facility] Blood, UA Negative Negative - 50 Eulogio/mcL [facility] Clarity, UA Clear [facility] Color, UA Yellow [facility] Glucose, UA Negative Negative - 1999(110) ++++ mg/dL [facility] Interpretation and review of laboratory results Abnormal [facility] Ketones, UA Negative Negative - 160(16) ++++ mg/dL [facility] Leukocytes, UA 1+ Negative - 500+++ Rufina/mcL [facility] Healthcare Nitrite, UA Negative Negative - Positive [facility] pH, UA 6 5 - 9 [facility] Protein, UA 1+ Negative - 1999(20) ++++ mg/dL [facility] Spec Grav, UA 1.015 1 - 1.03 [facility] Health care Urobilinogen, UA 1.0 0.2 - 12 mg/dL [facility] ALL CBC WITH AUTO DIFFon BASOPHILS ABSOLUTE AUTO 0 [facility] Basophils/100 WBC (Bld) 0.2 % 0.2 - 2.0 % [facility] Eosinophils/100 WBC (Bld) 0.2 % Low 0.9 - 7.0 % [facility] Erythrocyte distribution width (RBC) [Ratio] 13.7 % 11.0 - 15.0 % [facility] Hematocrit (Bld) [Volume fraction] 32.3 % Low 36.0 - 48.0 % [facility] Hemoglobin (Bld) [Mass/Vol] 10.6 g/dL Low 12.0 - 16.0 g/dL [facility] IMMATURE GRANULOCYTES ABS AUTO 0.04 High [facility] Immature granulocytes/100 WBC (Bld) 0.4 % 0.0 - 0.5 % [facility] Interpretation and review of laboratory results Abnormal [facility] LYMPHOCYTES ABSOLUTE AUTO 1.5 [facility] Lymphocytes/100 WBC (Bld) 16.2 % Low 20.5 - 60.0 % [facility] MCH (RBC) [Entitic mass] 30.9 pg 26.7 - 34.0 pg [facility] MCHC (RBC) [Mass/Vol] 32.8 g/dL 29.9 - 35.2 g/dL [facility] MCV (RBC) [Entitic vol] 94.2 fL 81.0 - 99.0 fL [facility] MONOCYTES ABSOLUTE AUTO 0.5 [facility] Monocytes/100 WBC (Bld) 5.8 % 1.7 - 12.0 % [facility] NEUTROPHILS ABSOLUTE AUTO 6.9 High [facility] Neutrophils/100 WBC (Bld) 77.2 % High 43.0 - 75.0 % [facility] Platelet mean volume (Bld) [Entitic vol] 10.1 fL 9.5 - 13.[address] [facility] EO # 0 [facility] TBH PLT 183 [facility] TBH RBC 3.43 Low [facility] TB WBC 9 [facility] Urinalysis macro (dipstick) panel (U)on 11-14-2024 Bilirubin, UA Negative Negative - 4(70) +++ mg/dL [facility] Blood, UA Negative Negative - 50 Eulogio/mcL [facility] Clarity, UA Clear [facility] Color, UA Yellow [facility] Glucose, UA Negative Negative - 1999(110) ++++ mg/dL [facility] Interpretation and review of laboratory results Abnormal [facility] Ketones, UA Negative Negative - 160(16) ++++ mg/dL [facility] Leukocytes, UA Positive Negative - 500+++ Rufina/mcL [facility] Comment on above: Small Nitrite, UA Negative Negative - Positive [facility] pH, UA 6.5 5 - 9 [facility] Protein, UA Positive Negative - 1999(20) ++++ mg/dL [facility] Comment on above: Small Spec Grav, UA 1.015 1 - 1.03 [facility] Urobilinogen, UA 0.2 0.2 - 12 mg/dL [facility] Urinalysis macro (dipstick) panel (U)on 10-17-2024 Bilirubin, UA Negative Negative - 4(70) +++ mg/dL [facility] Blood, UA Negative Negative - 50 Eulogio/mcL [facility] Clarity, UA Clear [facility] re Color, UA Yellow [facility] Glucose, UA Negative Negative - 1999(110) ++++ mg/dL [facility] Interpretation and review of laboratory results Normal [facility] Ketones, UA Negative Negative - 160(16) ++++ mg/dL [facility] Leukocytes, UA Negative Negative - 500+++ Rufina/mcL [facility] Nitrite, UA Negative Negative - Positive [facility] pH, UA 7 5 - 9 [facility] Protein, UA Negative Negative - 1999(20) ++++ mg/dL [facility] Spec Grav, UA 1.02 1 - 1.03 [facility] Urobilinogen, UA 0.2 0.2 - 12 mg/dL [facility] Ambulatory Visit Summaryon 0 10-07-2024 Ambulatory Visit Summary Ambulatory Visit Summary HESHAM AVALOS :2000 Visit Date:10/07/2024 Ambulatory Visit Instructions Your Diagnosis Dyspareunia, female Your Care Team Attending Physician - TINO MACK, Drain Cummins Primary Care Physician - ANDREA MACK, [...] [facility] [address], [place] [address] [phone] Medications What How Much When Instructions Unchanged [...] care provider who specializes in women's health (fiberglasser). How is this treated? Treatment for this condition depends on the cause of the condition and your symptoms. Treatment may include: ??? Lubricants, ointments, and creams. ??? Physical therapy. ??? Massage therapy. ??? Hormonal therapy. ??? Medicines to: ? Prevent or fight infection. ? Relieve pain. ? Help numb the area. ? Treat de (more content not included)... Normal [facility] Urology Office/Clinic Noteon 10-07-2024 Urology Office/Clinic Note [...] [facility] [address], [place] [address] [phone] Additional Instructions: Patient Education Dyspareunia, Female I, [...] Seizure: Sister. Immunizations Vaccine Date Status SARSCoV2 mRNA(ujsamnimx-rpzu-s ucros) vac 06/03/2021 Recorded SARS-CoV-2 (COVID-19) mRNA BNT-162b2 vax 05/13/2021 Recorded influenza virus vaccine, inactivated 02/01/2021 Recorded hepatitis B pediatric vaccine 10/29/2019 Recorded hepatitis B adult vaccine 05/14/2019 Recorded measles/mumps/rubella /varicella vaccine 04/11/2019 Recorded hepatitis B pediatric vaccine 04/11/2019 Recorded meningococcal conjugate vaccine 11/09/2017 Recorded poliovirus vaccine, inactivated 12/08/2004 Recorded measles/mumps/rubella virus vaccine 12/08/2004 Recorded diphtheria/pertussis, acel/tetanus ped (more content not included)... Normal [facility] Comment on above: Result Comment: Elec tronically Signed By: TINO MACK, Darin Cummins\.br\Date and Time Signed: 10/07/24 08:55 EDT\.br\Electronically Co-Signed By: Chichi Bautista\.br\Date and Time Co-Signed: 10/07/24 08:53 EDT GLUCOSE 1 HOURon 09-18-2024 Glucose [Mass/Vol] 104 mg/dL NINF - 13 0 mg/dL [facility] Urinalysis macro (dipstick) panel (U)on 09-17-2024 Bilirubin, UA Negative Negative - 4(70) +++ mg/dL [facility] Blood, UA Negative Negative - 50 Eulogio/mcL [facility] Clarity, UA Clear [facility] re Color, UA Yellow [facility] Glucose, UA Negative Negative - 1999(110) ++++ mg/dL [facility] Interpretation and review of laboratory results Abnormal [facility] Ketones, UA Positive Negative - 160(16) ++++ mg/dL [facility] Comment on above: 40mg/dL Leukocytes, UA Negative Negative - 500+++ Rufina/mcL [facility] Nitrite, UA Negative Negative - Positive [facility] pH, UA 6 5 - 9 [facility] Protein, UA Negative Negative - 1999(20) ++++ mg/dL [facility] Spec Grav, UA 1.015 1 - 1.[address] [facility] care Urobilinogen, UA 0.2 0.2 - 12 mg/dL [facility] Urinalysis macro (dipstick) panel (U)on 08-20-2024 Bilirubin, UA Positive Negative - 4(70) +++ mg/dL [facility] Comment on above: small Blood, UA Negative Negative - 50 Eulogio/mcL [facility] Clarity, UA Clear [facility] Color, UA Yellow [facility] Glucose, UA Negative Negative - 1999(110) ++++ mg/dL [facility] Interpretation and review of laboratory results Abnormal [facility] Ketones, UA Positive Negative - 160(16) ++++ mg/dL [facility] Comment on above: 15mg/dL Leukocytes, UA Positive Negative - 500+++ Rufina/mcL [facility] Comment on above: small Nitrite, UA Negative Negative - Positive [facility] pH, UA 7.5 5 - 9 [facility] Protein, UA Positive Negative - 1999(20) ++++ mg/dL [facility] Comment on above: 100mg/dL Spec Grav, UA 1.015 1 - 1.03 [facility] Urobilinogen, UA 1.0 0.2 - 12 mg/dL [facility] Ambulatory Visit Summaryon 0 [...] [facility] [address] , [place] [phone] Medications What How Much When Instructions Unchanged [...] including vitamins, herbs, eye drops, creams, and ktry-gdw-eqfxzdw medicines. ??? Any problems you or family [...] tells you to take them. ??? Taking wrpr-ipe-oykxdsb medicines, vitamins, herbs, and supplements. Tests You [...] (local ane (more content not included)... Normal [facility] Urology Office/Clinic Noteon 08-05-2024 Urology Office/Clinic Note [...] URL [facility] [address] [place] [address] [phone] Additional Instructions: schedule cystoscopy Patient Education Cystoscopy [...] failure: Grandparent. Hypertension: Grandparent. Seizure: Sister. Normal [facility] Comment on above: Result Comment: Elec tronically [...] Not detected [facility] GARDNERELLA VAGINALIS 0 [facility] GARDNERELLA VAGINALIS Not detected [facility] MEGASPHAERA (TYPES 1, 2) 0 [facility] MEGASPHAERA (TYPES 1, 2) Not detected [facility] MYCOPLASMA GENITALIUM 0 [facility] MYCOPLASMA GENITALIUM Not detected [facility] NEISSERIA GONORRHOEAE 0 [facility] NEISSERIA GONORRHOEAE Not detected [facility] TRICHOMONAS VAGINALIS 0 [facility] TRICHOMONAS VAGINALIS Not detected [facility] Urinalysis macro (dipstick) panel (U)on 07-23-2024 Bilirubin, UA Negative Negative - 4(70) +++ mg/dL [facility] Blood, UA Negative Negative - 50 Eulogio/mcL [facility] Clarity, UA Clear [facility] re Color, UA Yellow [facility] Glucose, UA Negative Negative - 1999(110) ++++ mg/dL [facility] Interpretation and review of laboratory results Abnormal [facility] Ketones, UA Positive Negative - 160(16) ++++ mg/dL [facility] Comment on above: trace Leukocytes, UA Negative Negative - 500+++ Rufina/mcL [facility] Nitrite, UA Negative Negative - Positive [facility] pH, UA 6.5 5 - 9 [facility] Protein, UA Trace Negative - 1999(20) ++++ mg/dL [facility] Spec Grav, UA 1.03 1 - 1.03 [facility] Urobilinogen, UA 0.2 0.2 - 12 mg/dL [facility] Free Cell DNAOrdered B y: Pao Fu on 07-16-2024 [facility] BOX TESTon 07-08-2024 BOX TEST SENT OUT [facility] [address]OX[address] [facility] [address] 07/08/24 [facility] [employer] BOX [facility] Drug Screen, Urineon 025 Amphetamine/Methamph etamine Negative [facility] Barbiturates Negative [facility] Benzodiazepines Negative [facility] Cocaine Metabolite Negative [facility] Methadone Negative [facility] Opiates Negative [facility] Oxycodone Negative [facility] Phencyclidine Negative [facility] Thc Marijuana, Urine Negative [facility] HIV 1&2 AB/AG Screen (P24 AG )on 07-08-2024 HIV 1&2 AB/AG Non-Reactive [facility] Hepatitis B surface antigeno n 07-08-2024 Hepatitis B Surface Antigen Negative [facility] Hepatitis C(HCV) Ab w/ Refle x to PCRon 07-08-2024 HCV Ab Ql (S) Non-Reactive [facility] No Panel Informationon 07-08 [facility] Rubella IGG immune statuson 07-08-2024 Rubella immune IgG IMMUNE [facility] Syphilis Total(Unknown Syphi lis Status)on 07-08-2024 Syphilis Non-Reactive [facility] Type and screenon 07-08-2024 Abo/Rh(D) Positive [facility] US OB TRANSVAGINALon 025 US OB [...] II, MD, PHD at 05-Jul-2024 08:37:00 PM [facility] Normal Not Available Comment on above: Order Comment: US OB TRANSVAGINAL No LMP recorded. Cytology Cervical or vaginal smear or scraping studyon 11-21-2023 [facility] PAP ACOG PANEL 2: 21 to 29on 03-04-2022 . . Normal [facility] Comment on above: Performed By: #### [id number] #### [facility] [address] [place] [address] Dr. Anthony Newton Age Gdln ACOG Testing - [facility] Comment on above: Performed By: #### [id number] #### [facility] [address] [place] [address] [address] Anthony Newton DIAGNOSIS: Comment [facility] Comment on above: Result Comment: NEGA TIVE FOR INTRAEPITHELIAL LESION OR MALIGNANCY. THIS SPECIMEN WAS RESCREENED PART OF OUR ANODIC TREATER PROGRAM. Performed By: #### [id number] #### [facility] [address] [place] [address] Dr. Anthony Newton Methodology: Comment [facility] Comment on above: Result Comment: This liquid based ThinPrep(R) pap test was screened with the use of an image guided system. Performed By: #### [id number] #### [facility] [address] [place] [address] Dr. Anthony Newton Note: Comment [facility] Comment on above: Result Comment: The Pap smear is a screening test designed to aid in the detection of premalignant and malignant conditions of the uterine cervix. It is not a diagnostic procedure and should not be used as the sole means of detecting cervical cancer. Both false-positive and false-negative reports do occur. . Performed By: #### [id number] #### [facility] [address] [place] [address] Dr. Anthony Newton Performed by: Comment Normal [facility] Comment on above: Result Comment: Lana Connell, Getterer Performed By: #### [id number] #### [facility] Laboratory [address] [place] [address] Dr. Anthony Newton QC reviewed by: Comment Normal [facility] Comment on above: Result Comment: Shae Maria, Getterer (ASCP) Performed By: #### [id number] #### [facility] [address] [place] [address] Dr. Anthony Newton Reflex Criteria: Comment Normal [facility] Comment on above: Result Comment: The HPV DNA reflex criteria were not met with this specimen result therefore, no HPV testing was performed. . Performed By: #### [id number] #### [facility] [address] [address] [address] Anthony Newton Specimen adequacy: Comment Normal [facility] Comment on above: Result Comment: Sati sfactory for evaluation. Endocervical and/or squamous metaplastic cells (endocervical component) are present. Performed By: #### [id number] #### [facility] [address] [place] [address] Dr. Anthony Newton Lab - Toxicology Resultson 0 10-05-2018 Lab - Toxicology Results [id number]. 00OT[facility]IFF [facility] Outside Recordson 10-04-2018 Outside Records [id number]. 00OT[facility]IFF [facility] Triage Industrialon 10-05-19 19 Drug Screen Complete Collected Normal [facility] Comment on above: Performed By: #### [id number] #### [facility] (DEFAULT) [address] [place] [address] ED Clinical Summaryon 2018 ED Clinical Summary [facility] ? Urgent Care [address] [place] [id number] Clinical Summary PERSON INFORMATION Name: HESHAM NEELY Age: 18 Years Sex: FEMALE : 00 MRN: Acct#: Visit Reason: Medical screening exam; PHYSICAL PRE EMPLOYMENT/ RIVERVIEW Arrival: 10/03/18 16:20:33 Discharge: 10/03/18 16:50:00 LOS: 000 00:30 Check In: 10/03/18 16:20:33 Checkout: 10/03/18 16:50:00 Address: [address] [place] [address] PCP: PROVIDER INFORMATION Provider Role Assigned Unassigned [...] Instructions: Follow-Up: DIAGNOSIS: Patient Understands: Comment: Normal [facility] ED Patient Summaryon 019 ED Patient Summary [facility] ? Urgent Care [address] [place], [place] [id number] PATIENT DISCHARGE INSTRUCTIONS Patient Information Name: HESHAM NEELY Age: 18 Years Date of : 00 Reason For Visit: Medical screening exam; PHYSICAL PRE EMPLOYMENT/ RIVERVIEW Arrival Time: 10/03/18 16:20:33 Primary Care Physician: Attending Physician: Paulino Padilla Comment: Patient Education Medication Information: The exam and treatment you received today in the [facility] Emergency Department were for an urgent problem and are not intended as complete care. It is important for you to follow up with a doctor, nurse practitioner, or physician?s team assistant for ongoing care. If your symptoms [...] so we can reach you if necessary. [facility] Emergency Department has provided you with a complete list of medications post discharge. Please inform your senior javascript developer/provider of your visit and for further instruction on these medications. Any specific questions regarding your chronic medications and dosages should be discussed with your primary care physician(s) and/or pharmacist. Visit Information Visit Diagnosis: Diagnoses This Visit Medical screening exam ([id number]) If you received any narcotics, sedation, or [...] sign any legal documents Reason for Visit: Newton physical Allergies: Substance Reaction Symptoms Type Comments [...] Disease Control and Prevention December 2013 Normal [facility] Vital Signs Date Time Vital Sign Value Performing Clinician Sole rodriguez 01-14-2025 09:32-0400 Body mass index (BMI) [Ratio] 39.48 kg/m2 Kendra Luis BUTTONHOLE MACHINE OPERATOR Work Phone: [facility] 01-14-2025 09:32-0400 Body weight 104.33 kg Kendra Annerly BUTTONHOLE MACHINE OPERATOR Work Phone: [facility] 01-14-2025 09:32-0400 Diastolic blood pressure 68 mm[Hg] Kendra Luis BUTTONHOLE MACHINE OPERATOR Work Phone: [facility] 01-14-2025 09:32-0400 Systolic blood pressure 122 mm[Hg] Kendra Pimentelly BUTTONHOLE MACHINE OPERATOR Work Phone: [facility] 01-06-2025 10:44-0400 Body mass index (BMI) [Ratio] 39.16 kg/m2 Kathie Roman PA Work Phone: [facility] 01-06-2025 10:44-0400 Body weight 103.48 kg Kathie Jesus PA Work Phone: [facility] 01-06-2025 10:44-0400 Diastolic blood pressure 66 mm[Hg] Kathie Jesus PA Work Phone: [facility] 01-06-2025 10:44-0400 Systolic blood pressure 122 mm[Hg] Kathie Jesus PA Work Phone: [facility] 12-24-2024 10:07-0400 Body mass index (BMI) [Ratio] 39.31 kg/m2 Don Rocky DO Work Phone: [facility] 12-24-2024 10:07-0400 Body weight 103.87 kg Don Rocky DO Work Phone: [facility] 12-24-2024 10:07-0400 Diastolic blood pressure 70 mm[Hg] Don Rocky DO Work Phone: [facility] 12-24-2024 10:07-0400 Systolic blood pressure 124 mm[Hg] Don Rocky DO Work Phone: [facility] 12-12-2024 10:28-0400 Body mass index (BMI) [Ratio] 38.96 kg/m2 Kathie Jesus PA Work Phone: [facility] 12-12-2024 10:28-0400 Body weight 102.97 kg Kathie Jesus PA Work Phone: [facility] 12-12-2024 10:28-0400 Diastolic blood pressure 70 mm[Hg] Kathie Jesus PA Work Phone: [facility] 12-12-2024 10:28-0400 Systolic blood pressure 130 mm[Hg] Kathie Jesus PA Work Phone: [facility] 11-28-2024 08:48-0400 Body mass index (BMI) [Ratio] 38.62 kg/m2 Don Rocky DO Work Phone: [facility] 11-28-2024 08:48-0400 Body weight 102.06 kg Don Rocky DO Work Phone: [facility] 11-28-2024 08:48-0400 Diastolic blood pressure 74 mm[Hg] Don Rocky DO Work Phone: [facility] 11-28-2024 08:48-0400 Systolic blood pressure 118 mm[Hg] Don Rocky DO Work Phone: [facility] 11-14-2024 11:22-0400 Body mass index (BMI) [Ratio] 38.88 kg/m2 Kathie Black Creek PA Work Phone: [facility] 11-14-2024 11:22-0400 Body weight 102.74 kg Kathie Jesus PA Work Phone: [facility] 11-14-2024 11:22-0400 Diastolic blood pressure 64 mm[Hg] Kathie [place] PA Work Phone: [facility] 11-14-2024 11:22-0400 Systolic blood pressure 122 mm[Hg] Kathie Jesus PA Work Phone: [facility] 10-17-2024 08:10-0400 Body mass index (BMI) [Ratio] 38.66 kg/m2 Don Rocky DO Work Phone: [facility] 10-17-2024 08:10-0400 Body weight 102.17 kg Don Rocky DO Work Phone: [facility] 10-17-2024 08:10-0400 Diastolic blood pressure 58 mm[Hg] Don Rocky DO Work Phone: [facility] 10-17-2024 08:10-0400 Systolic blood pressure 114 mm[Hg] Don Rocky DO Work Phone: [facility] 09-23-2024 11:59-0400 Body height 162.6 cm Cintia Allen MD Work Phone: [facility] 09-23-2024 11:59-0400 Body mass index (BMI) [Ratio] 38.04 kg/m2 Cintia Allen MD Work Phone: [facility] 09-23-2024 11:59-0400 Body weight 100.52 kg Cintia Allen MD Work Phone: [facility] 09-23-2024 11:59-0400 Diastolic blood pressure 75 mm[Hg] Cintia Allen MD Work Phone: [facility] 09-23-2024 11:59-0400 Heart rate 90 /min Cintia Allen MD Work Phone: [facility] 09-23-2024 11:59-0400 Systolic blood pressure 119 mm[Hg] Cintia Allen MD Work Phone: [facility] 09-17-2024 13:49-0400 Body mass index (BMI) [Ratio] 38.28 kg/m2 Kathie COCHRAN Work Phone: [facility] 09-17-2024 13:49-0400 Body weight 101.15 kg Kathie COCHRAN Work Phone: [facility] 09-17-2024 13:49-0400 Diastolic blood pressure 78 mm[Hg] Kathie COCHRAN Work Phone: [facility] 09-17-2024 13:49-0400 Systolic blood pressure 124 mm[Hg] Kathie COCHRAN Work Phone: [facility] 08-20-2024 10:54-0400 Body mass index (BMI) [Ratio] 37.59 kg/m2 Don Rocky DO Work Phone: [facility] 08-20-2024 10:54-0400 Body weight 99.34 kg Don Rocky DO Work Phone: [facility] 08-20-2024 10:54-0400 Diastolic blood pressure 84 mm[Hg] Don Rocky DO Work Phone: [facility] 08-20-2024 10:54-0400 Systolic blood pressure 126 mm[Hg] Don Rocky DO Work Phone: [facility] 07-23-2024 12:54-0400 Body mass index (BMI) [Ratio] 38.28 kg/m2 Don Rocky DO Work Phone: [facility] 07-23-2024 12:54-0400 Body weight 101.15 kg Don Rocky DO Work Phone: [facility] 07-23-2024 12:54-0400 Diastolic blood pressure 80 mm[Hg] Don Rocky DO Work Phone: [facility] 07-23-2024 12:54-0400 Systolic blood pressure 120 mm[Hg] Don Rocky DO Work Phone: [facility] 05-24-2023 14:05-0500 Body height 162.6 cm Stephanie Sotelo BUTTONHOLE MACHINE OPERATOR Work Phone: [facility] 05-24-2023 14:05-0500 Body mass index (BMI) [Ratio] 34.57 kg/m2 Stephanie Sotelo BUTTONHOLE MACHINE OPERATOR Work Phone: [facility] 05-24-2023 14:05-0500 Body weight 91.35 kg Stephanie Sotelo BUTTONHOLE MACHINE OPERATOR Work Phone: [facility] 05-24-2023 14:05-0500 Diastolic blood pressure 74 mm[Hg] Stephanie Sotelo BUTTONHOLE MACHINE OPERATOR Work Phone: [facility] 05-24-2023 14:05-0500 Heart rate 63 /min Stephanie Sotelo BUTTONHOLE MACHINE OPERATOR Work Phone: [facility] 05-24-2023 14:05-0500 Respiratory rate 20 /min Stephanie Sotelo BUTTONHOLE MACHINE OPERATOR Work Phone: [facility] 05-24-2023 14:05-0500 SaO2% (BldA) [Mass fraction] 96 % Stephanie Sotelo BUTTONHOLE MACHINE OPERATOR Work Phone: [facility] 05-24-2023 14:05-0500 Systolic blood pressure 138 mm[Hg] Stephanie Sotelo BUTTONHOLE MACHINE OPERATOR Work Phone: [facility] 04-12-2023 15:05-0500 Body height 162.6 cm Daniella Reina MD Work Phone: [facility] 04-12-2023 15:05-0500 Body mass index (BMI) [Ratio] 37.93 kg/m2 Daniella Reina MD Work Phone: [facility] 04-12-2023 15:05-0500 Body weight 100.25 kg Daniella Reina MD Work Phone: [facility] 04-12-2023 15:05-0500 Diastolic blood pressure 76 mm[Hg] Daniella Reina MD Work Phone: [facility] [employer] [facility] 04-12-2023 15:05-0500 Heart rate 96 /min Daniella Reina MD Work Phone: [facility] 04-12-2023 15:05-0500 Systolic blood pressure 115 mm[Hg] Daniella Reina MD Work Phone: [facility] Encounters Encounter Date Encounter Type Care Provider Facility Start: 01-14-2025 End: 01-14-2025 flow sheet Kendra Smith BUTTONHOLE MACHINE OPERATOR Work Phone: [facility] Tj JAVIER Comment on above: Third trimester preg bria ([facility]); 36 weeks gestation of ([facility]); History of placental abnormality; Excessive growth affecting management of , antepartum, single or unspecified fetus ([facility]) Start: 01-06-2025 End: 01-06-2025 Bamboo flowsheet Kathie COCHRAN Work Phone: [facility] Start: 01-06-2025 End: 01-06-2025 Bamboo flowsheet Kathie COCHRAN Work Phone: [facility] Start: 01-06-2025 End: 01-06-2025 flow sheet Kathie COCHRAN Work Phone: [facility] Comment on above: Third trimester preg bria ([facility]); 35 weeks gestation of ([facility]) Start: 01-06-2025 End: 01-06-2025 ambulatory KATHIE ROMAN Not Available Start: 12-24-2024 End: 12-24-2024 Bamboo flowsheet Don Rocky DO Work Phone: [facility] Start: 12-24-2024 End: 12-24-2024 Bamboo flowsheet Don Rocky DO Work Phone: [facility] Start: 12-24-2024 End: 12-24-2024 flow sheet Don Rocky DO Work Phone: [facility] Comment on above: Third trimester preg bria ([facility]); 33 weeks gestation of ([facility]); History of placental abnormality; Excessive growth affecting management of , antepartum, single or unspecified fetus ([facility]) Start: 12-24-2024 End: 12-24-2024 ambulatory DON ROCKY Not Available Start: 12-14-2024 End: 12-14-2024 Clinisync Result Encounter Generic External Data Provider [facility] External Department Unsolicited Start: 12-14-2024 End: 12-14-2024 Clinisync Result Encounter Generic External Data Provider [facility] External Department Unsolicited Start: 12-12-2024 End: 12-12-2024 Bamboo flowsheet Kathie COCHRAN Work Phone: [facility] Start: 12-12-2024 End: 12-12-2024 Bamboo flowsheet Kathie COCHRAN Work Phone: [facility] Start: 12-12-2024 End: 12-12-2024 flow sheet Kathie COCHRAN Work Phone: [facility] Comment on above: Third trimester preg bria ([facility]); 31 weeks gestation of ([facility]) Start: 12-12-2024 End: 12-12-2024 ambulatory KATHIE ROMAN Not Available Start: 11-28-2024 End: 11-28-2024 Bamboo flowsheet Don Rocky DO Work Phone: [facility] Start: 11-28-2024 End: 11-28-2024 Bamboo flowsheet Don Rocky DO Work Phone: [facility] Start: 11-28-2024 End: 11-28-2024 flow sheet Don Rocky DO Work Phone: [facility] Comment on above: Third trimester preg bria ([facility]); 29 weeks gestation of ([facility]); History of placental abnormality; Excessive growth affecting management of in third trimester, single or unspecified fetus ([facility]) Start: 11-28-2024 End: 11-28-2024 ambulatory DON [...] flowsheet Kathie COCHRAN Work Phone: [facility] Start: 11-14-2024 End: 11-14-2024 flow sheet Kathie COCHRAN Work Phone: [facility] Comment on above: Second trimester pre gnancy ([facility]); 27 weeks gestation of ([facility]) Start: 11-14-2024 End: 11-14-2024 ambulatory KATHIE ROMAN Not Available Start: 10-24-2024 End: 10-24-2024 [facility] Start: 10-17-2024 End: 10-17-2024 Bamboo flowsheet Don Rocky DO Work Phone: [facility] Start: 10-17-2024 End: 10-17-2024 Bamboo flowsheet Don Rocky DO Work Phone: [facility] Start: 10-17-2024 End: 10-17-2024 flow sheet Don Rocky DO Work Phone: [facility] Comment on above: Second trimester pre gnancy ([facility]); 23 weeks gestation of ([facility]); Diabetes mellitus screening Start: 10-17-2024 End: 10-17-2024 ambulatory DON ROCKY Not Available Start: 10-07-2024 End: 10-07-2024 ambulatory Darin RICHARD Facility:[facility] Start: 10-07-2024 End: 10-07-2024 Patient encounter procedure Darin RICHARD [facility] Start: 09-23-2024 End: 09-23-2024 Office consultation new/estab patient 40 min Cintia Allen MD Work Phone: [facility] Comment on above: Obesity affecting pr egnancy in second trimester, unspecified obesity type (Primary Dx) Start: 09-23-2024 End: 09-23-2024 Orders Only Sherrill Hernandez [facility] Comment on above: Polyhydramnios affec ting [...] 08-05-2024 End: 08-05-2024 ambulatory Darin RICHARD Facility:[facility] Start: 08-02-2024 End: 08-02-2024 Chart abstracting Cintia Allen MD Work Phone: [facility] Start: 07-25-2024 ambulatory Facility:[facility] Start: [...] 05-24-2023 Bamboo flowsheet Stephanie A Fit zpatrick BUTTONHOLE MACHINE OPERATOR Work Phone: [facility] Start: 05-24-2023 Bamboo flowsheet Stephanie A Fit zpatrick BUTTONHOLE MACHINE OPERATOR Work Phone: [facility] Start: 05-24-2023 End: 05-24-2023 Patient encounter status Stephanie A Sotelo BUTTONHOLE MACHINE OPERATOR Work Phone: [facility] Work Phone: Start: 05-24-2023 End: 05-24-2023 Periodic preventive med est patient 18-39 yrs Stephanie A Ashleigh BUTTONHOLE MACHINE OPERATOR Work Phone: [facility] Comment on above: Encounter for wellne ss examination (Primary Dx); Anemia, unspecified type Start: 04-12-2023 End: 04-12-2023 Office outpatient visit 25 minutes Daniella Reina MD Work Phone: [facility] [place] Comment on above: 35 weeks gestation o f (Primary Dx); Polyhydramnios affecting Start: 02-24-2022 End: 02-24-[address] DON HIDALGO Facility: Procedures Date Procedure Procedure Detail Performing Clinician Start: 01-14-2025 Urnls dip stick/tabl et rgnt non-auto w/o micrscp Kendra Smith BUTTONHOLE MACHINE OPERATOR Work Phone: Start: 01-06-2025 Urnls dip stick/tabl et rgnt non-auto w/o micrscp Kathie COCHRAN Work Phone: Start: 12-24-2024 Urnls dip stick/tabl et rgnt [...] micrscp Don Rocky DO Work Phone: Start: 07-08-2024 Antibody [...] Ref Prov Start: 07-08-2024 BOX TEST Don Barnhartzi o DO Work Phone: Start: 11-21-2023 Cytp cerv/vag auto t hin layer prep mnl screen Don Rocky DO Work Phone: Start: 11-09-2022 Microscopic [...] DTaP,Tdap and Td Vaccines (6 - Tdap) [facility] Start: 11-09-2025 Screening for malign ant neoplasm of cervix [facility] Start: 09-23-2025 Adult BMI Screening Adult BMI Screen ing [facility] Start: 09-23-2025 Tobacco Screening Tobacco Screening [facility] Start: 09-23-2025 End: 09-23-2025 US MFM with or without consult US MFM with or without consult Imaging Routine Polyhydramnios affecting Low-lying placenta Placenta previa in second trimester Velamentous insertion of umbilical cord in second trimester Vasa previa, single or unspecified fetus History of hemorrhage, currently in second trimester Expected: 09/23/2025 (Approximate), Expires: 09/23/2025 [employer] Work Phone: Comment on above: Expected: 09/23/2025 (Approximate), Expires: 09/23/2025 Start: 01-23-2025 End: 01-23-2025 Patient encounter procedure 01/23/2025 10:20 AM EDT Routine CONY JAVIER [address] [place] [address] Kendra Smith, BUTTONHOLE MACHINE OPERATOR [address] [facility] [place] [address] CON[facility] JAVIER Start: 01-14-2025 End: 01-14-2026 CULTURE, GROUP B STREP WITH SUSCEPTIBLITY CULTURE, GROUP B STREP WITH SUSCEPTIBLITY Lab Routine Third trimester ([facility]) Expected: 01/14/2025 (Approximate), Expires: 01/14/2026 [facility] Work Phone: Comment on above: Expected: 01/14/2025 (Approximate), Expires: 01/14/2026 Start: 01-14-2025 End: 07-14-2025 US biophysical profile w non stress test US biophysical profile w non stress test Imaging Routine Third trimester ([facility]) 36 weeks gestation of ([facility]) History of placental abnormality Excessive growth affecting management of , antepartum, single or unspecified fetus ([facility]) Expected: 01/14/2025 (Approximate), Expires: 07/14/2025 [facility] [employer] Comment on above: Expected: 01/14/2025 (Approximate), Expires: 07/14/2025 Start: 01-14-2025 End: 01-14-2025 Patient encounter procedure 01/14/2025 9:20 AM EDT Routine [facility] [address] [place] [address] Kendra Smith, BUTTONHOLE MACHINE OPERATOR [address] [place] [phone] [facility] Start: 01-14-2025 End: 01-14-2025 Professional / ancillary services management 01/14/2025 9:00 AM EDT Ancillary Procedure [facility] [address] [facility] [place] [place] [address] [facility] Start: 01-06-2025 End: 01-06-2025 Patient encounter procedure [facility] Comment on above: Arrived Start: 12-24-2024 End: 04-25-2025 US for US OB follow up transabdominal approach Imaging Routine Excessive growth affecting management of , antepartum, single or unspecified fetus ([facility]) Expected: 12/24/2024, Expires: 04/25/2025 [facility] Work Phone: Comment on above: Expected: 12/24/2024 , Expires: 04/25/2025 Start: 12-24-2024 End: 12-24-2024 Patient encounter procedure [facility] Comment on above: Arrived Start: 12-16-2024 Influenza vaccination [facility] Start: 12-12-2024 End: 12-12-2024 Patient encounter procedure 12/12/2024 10:10 AM EDT Routine CONY FRANKLINN [address] [place] [phone] Kathie Roman PA [address] [facility] [facility] [address] [place], [place] [address] Arrived CON[facility] JAVIER Comment on above: Arrived Start: 11-28-2024 End: 03-30-2025 US for US OB follow up transabdominal approach Imaging Routine Third trimester ([facility]) History of placental abnormality Excessive growth affecting management of in third trimester, single or unspecified fetus ([facility]) Expected: 11/28/2024, Expires: 03/30/2025 [facility] Work Phone: Comment on above: Expected: 11/28/2024 , Expires: 03/30/2025 Start: 11-28-2024 End: 11-28-2024 Patient encounter procedure CONY JAVIER Comment on above: Arrived Start: 11-26-2024 End: 11-26-2024 Patient encounter procedure 11/26/2024 3:00 PM EDT Office Visit [facility] [address] [place] [phone] Don Hidalgo DO [address] [facility] [facility] [place] [address] [facility] Start: 11-14-2024 End: 11-14-2024 Patient encounter procedure [facility] Comment on above: Arrived Start: 10-24-2024 End: 10-24-2024 Patient encounter procedure 10/24/2024 1:00 PM EDT Appointment [facility] [place] [address] [facility] [place] Start: 10-17-2024 End: 10-17-2025 CBC panel - Blood by Automated count CBC Lab Routine Diabetes mellitus screening Expected: 10/17/2024 (Approximate), Expires: 10/17/2025 [facility] Work Phone: Comment on above: Expected: [...] Routine [facility] [address] [place] [phone] Don Hidalgo, DO [address] [place] [address] [facility] Start: 10-17-2024 End: 10-17-2024 Patient encounter procedure 10/17/2024 8:10 AM EDT Routine [facility] [address] [place] [phone] Don Hidalgo, DO [address] [place] [address] Arrived [facility] Comment on above: Arrived Start: 09-23-2024 End: 09-23-2024 Patient encounter procedure [facility] Start: 09-17-2024 End: 09-17-2024 Patient encounter procedure 09/17/2024 1:30 PM EDT Routine [facility] [address] [place] [phone] Kathie Roman PA [address] [place] [address] [facility] Start: 08-20-2024 End: 10-20-2024 Alpha fetoprotein, maternal Alpha fetoprotein, maternal Lab Routine Second trimester 15 weeks gestation of Expected: 08/20/2024 (Approximate), Expires: 10/20/2024 [facility] Work Phone: Comment on above: Expected: 08/20/2024 (Approximate), Expires: 10/20/2024 Start: 08-20-2024 End: 08-20-2025 Measurement of glucose 1 hour after glucose challenge for glucose tolerance test Glucose tolerance, 1 hour Lab Routine Diabetes mellitus screening Expected: 08/20/2024 (Approximate), Expires: 08/20/2025 [facility] Comment on above: Expected: 08/20/2024 (Approximate), Expires: 08/20/2025 Start: 08-20-2024 End: 08-20-2024 Patient encounter procedure 08/20/2024 10:20 AM EDT Routine [facility] [address] [place] [phone] Don Hidalgo, DO [address] [facility] [place] [address] [facility] Start: 08-05-2024 End: 08-05-2024 Patient encounter procedure 08/05/2024 2:10 PM EDT Routine [facility] [address] [place] [phone] Don Hidalgo, DO [address] [place] [address] [facility] Start: 04-12-2024 Adult BMI Screening Adult BMI Screen ing [facility] Start: 04-12-2024 Tobacco Screening Tobacco Screening [facility] Start: 12-17-2023 COVID-19 Vaccine ( season) COVID-19 Vaccine ( season) [place] [facility] Start: 12-17-2023 Influenza vaccination Influenza Vacc ine (#1) [facility] Start: 11-10-2023 Screening for Chlamy annabella trachomatis Chlamydia Screening [facility] Start: 10-15-2023 Influenza vaccination Influenza Vacc ine (#1) [facility] Comment on above: Postponed from 12/16 (Patient Refused) Start: 06-07-2023 End: 06-07-2023 ambulatory 06/07/2023 10:30 AM EST Visit [facility] [address] [place] [id number] Kathie Roman PA [address] [place] [address] [facility] Start: 05-24-2023 End: 05-24-2024 CBC W Auto Differential panel - Blood CBC and differential Lab Routine Encounter for wellness examination Anemia, unspecified type Expected: 05/24/2023 (Approximate), Expires: 05/24/2024 [facility] Comment on above: Expected: 05/24/2023 (Approximate), Expires: 05/24/2024 Start: 05-24-2023 End: 05-24-2024 Comprehensive metabolic 2000 panel - Serum or Plasma Comprehensive metabolic panel Lab Routine Encounter for wellness examination Anemia, unspecified type Expected: 05/24/2023 (Approximate), Expires: 05/24/2024 [facility] Work Phone: Comment on above: Expected: 05/24/2023 (Approximate), Expires: 05/24/2024 Start: 12-16-2022 COVID-19 Vaccine ( season) COVID-19 Vaccine ( season) [facility] Start: 12-16-2022 Influenza vaccination [facility] Start: 01-31-2022 Depression Screening Depression Scre [facility] Start: 2018 Adult BMI Follow Up Plan Adult BMI Follow Up Plan [facility] Start: 2012 Depression Screening Depression Scre [facility] CHLAMYDIA TRACHOMATI S (GENITO/STI) CHLAMYDIA TRACHOMATIS (GENITO/STI) Lab Routine Vaginal discharge Ordered: 07/23/2024 [facility] Comment on above: Ordered: 07/23/2024 Neisseria gonorrhoea e DNA [Presence] in Unspecified specimen by BOONE with probe detection Neisseria gonorrhea DNA probe, direct Lab Routine Vaginal discharge Ordered: 07/23/2024 [facility] Comment on above: Ordered: 07/23/2024 SURESWAB(R) ADVANCED VAGINITIS PLUS, TMA SURESWAB(R) ADVANCED VAGINITIS PLUS, TMA Pathology and Cytology Routine Vaginal discharge Ordered: 07/23/2024 [facility] Work Phone: Comment on above: Ordered: 07/23/2024 Immunizations Immunization Date Immunization Notes Care Provider Bronwyn alexander 06-03-2021 SARS-CoV-2 mRNA (bjukfuyufnx-xcmo-qpfja se) vaccine Darin RICHARD [facility] 05-13-2021 SARS-CoV-2 (COVID-19 ) mRNA BNT-162b2 vax Darin RICHARD [facility] 02-01-2021 Seasonal, quadrivale nt, recombinant, injectable influenza vaccine, preservative free Stephanie Sotelo NP Work Phone: [facility] 02-01-2021 influenza virus vaccine, unspecified formulation Daniella Reina MD Work Phone: [facility] 12-19-2020 diphtheria, tetanus toxoids and pertussis vaccine Daniella Reina MD Work Phone: [facility] 10-29-2019 hepatitis B vaccine, pediatric or pediatric/adolescent dosage Daniella Reina MD Work Phone: [facility] 05-14-2019 hepatitis B vaccine, adult dosage Daniella Reina MD Work Phone: [facility] 04-11-2019 hepatitis B vaccine, pediatric or pediatric/adolescent dosage Daniella Reina MD Work Phone: [facility] 04-11-2019 measles, mumps, rubella, and varicella virus vaccine Daniella Reina MD Work Phone: [facility] 11-09-2017 meningococcal ACWY vaccine, unspecified formulation Darin RICHARD [facility] 11-09-2017 meningococcal oligosaccharide (groups A, C, Y and W-135) diphtheria toxoid conjugate vaccine (MCV4O) Daniella Reina MD Work Phone: [facility] 12-08-2004 diphtheria, tetanus toxoids and acellular pertussis vaccine Daniella Reina MD Work Phone: [facility] 12-08-2004 measles, mumps and rubella virus vaccine Daniella Reina MD Work Phone: [facility] 12-08-2004 poliovirus vaccine, inactivated Daniella Reina MD Work Phone: [facility] 12-08-2004 poliovirus vaccine, unspecified formulation Darin RICHARD [facility] 09-28-2001 measles, mumps and rubella virus vaccine Daniella Reina MD Work Phone: [facility] 03-23-2001 diphtheria, tetanus toxoids and acellular pertussis vaccine, unspecified formulation Daniella Reina MD Work Phone: [facility] 03-23-2001 DTaP, unspecified formulation Darin RICHARD [facility] 03-23-2001 haemophilus influenz ae type b conjugate and Hepatitis B vaccine Daniella Reina MD Work Phone: [facility] 03-23-2001 poliovirus vaccine, inactivated Daniella Reina MD Work Phone: [facility] 03-23-2001 poliovirus vaccine, unspecified formulation Darin RICHARD [facility] 01-12-2001 diphtheria, tetanus toxoids and acellular pertussis vaccine, unspecified formulation Daniella Reina MD Work Phone: [facility] 01-12-2001 DTaP, unspecified formulation Darin RICHARD [facility] 01-12-2001 haemophilus influenz ae type b vaccine, HbOC conjugate Daniella Reina MD Work Phone: [facility] 01-12-2001 poliovirus vaccine, inactivated Daniella Reina MD Work Phone: [facility] 01-12-2001 poliovirus vaccine, unspecified formulation Darin RICHARD [facility] 2000 diphtheria, tetanus toxoids and acellular pertussis vaccine, unspecified formulation Daniella Reina MD Work Phone: [facility] 2000 DTaP, unspecified formulation Darin RICHARD [facility] 2000 haemophilus influenz ae type b conjugate and Hepatitis B vaccine Daniella Reina MD Work Phone: [facility] 2000 poliovirus vaccine, inactivated Daniella Reina MD Work Phone: [facility] 2000 poliovirus vaccine, unspecified formulation Darin RICHARD [facility] 2000 hepatitis B vaccine, pediatric or pediatric/adolescent dosage Daniella Reina MD Work Phone: [facility] NEGATED: Highlighted row has not occurred!04-11-2019 influenza, injectable, quadrivalent, preservative free Daniella Reina MD Work Phone: [facility] Comment on above: Deferred: Patient de cision Payers Date Payer Category Payer Private Health Insurance [id number] 2022 [employer] Blue [employer] BCBS [id number] 2022 [employer] Blue [employer] Managed Care - O ANTHEM [id number] 2022 Unknown [id number] 2021 Unknown [id number] 2000 Unknown [id number] 2.16.840.1.463895.3.579. 2.593 2000 Unknown [id number] 2.16.840.1.811094.3.579. 2.727 2000 Unknown [id number] 2.16.840.1.914462.3.579. 2.1286 2000 Unknown [id number] 2.16.840.1.635047.3.579. 2.1286 2000 Unknown [id number] 2.16.840.1.727645.3.579. 2.727 2000 Unknown [id number] 2.16.840.1.986704.3.579. 2.727 2000 Unknown [id number] 2.16.840.1.410628.3.579. 2.1286 2000 Unknown [id number] 2.16.840.1.816616.3.579. 2.9 2000 Unknown [id number] 2.16.840.1.158517.3.579. 2.1258 2000 Unknown [id number] 2.16.840.1.248871.3.579. 2.1258 2000 Unknown [id number] 2.16.840.1.507318.3.579. 2.1258 2000 Unknown [id number] 2.16.840.1.035373.3.579. 2.1258 2000 Unknown [id number] 2.16.840.1.742271.3.579. 2.1258 2000 Unknown [id number] 2.16.840.1.360894.3.579. 2.1258 2000 Unknown [id number] 2.16.840.1.298313.3.579. 2.1258 2000 Unknown [id number] 2.16.840.1.030364.3.579. 2.1258 2000 Unknown [id number] 2.16.840.1.916344.3.579. 2.1258 2000 Unknown [id number] 2.16.840.1.716537.3.579. 2.1259 1959 Unknown [id number] Social History Date Type Detail Facility Start: 11-08-2022 End: 10-07-2024 Tobacco smoking status NHIS Never smoked tobacco [facility] Start: 11-08-2022 End: 04-12-2023 Tobacco use and exposure Smokeless tobacco non-user [facility] Start: 04-12-2023 End: 04-18-2023 Alcohol intake Lifetime non-drinker (finding) [facility] Start: 05-17-2023 End: 05-24-2023 History of Social function [facility] Start: 05-17-2023 End: 05-24-2023 Humiliation, Afraid, Rape, and Kick questionnaire [HARK] [facility] Within the last year , have you been afraid of your partner or ex-partner? No [facility] Are you now , , , , never or living with a partner? [facility] How often to you hav e a drink containing alcohol? 2-4 times a month [facility] How many standard drinks containing alcohol do you have on a typical day? 3 or 4 [facility] How often do you hav e 6 or more drinks on 1 occasion? Less than monthly [facility] How hard is it for y ou to pay for the very basics like food, housing, medical care, and heating Not hard at all [facility] Do you feel stress - tense, restless, nervous, or anxious, or unable to sleep at night because your mind is troubled all the time - these days [OSQ] Not at all [facility] (I/We) worried wheth er (my/our) food would run out before (I/we) got money to buy more. Never true [facility] Start: 08-15-2022 [facility] Start: 2000 Sex Assigned At Female P [facility] Start: 10-07-2022 Gender identity Identifies as female gender (finding) [facility] Start: 10-07-2022 Sexual orientation Heterosexual (fin laura) [facility] Start: 05-24-2023 End: 01-14-2025 Alcohol intake Ex-drinker (finding) [facility] Are you now , , , , never or living with a partner? Living with partner [facility] How hard is it for y ou to pay for the very basics like food, housing, medical care, and heating Not very hard [facility] Do you feel stress - tense, restless, nervous, or anxious, or unable to sleep at night because your mind is troubled all the time - these days [OSQ] Very much [facility] Start: 01-31-2021 Education 21 [facility] Start: 11-18-2014 Sex Female (finding) [facility] Sexual Orientation [facility] NEGATED: Highlighted rowStart: RANDI History of tobacco use Passive smoker [facility] Medical Equipment Procedure Code Equipment Code Equipment Origin al Text Equipment Identifier Dates Check blood suga r 4-5 times daily, fasting and 1 hour after meals. Use as directed. Dispense per insurance preference. [id number] Start: 04-12-2023 1 strip by miscellaneous route in the morning and 1 strip at noon and 1 strip in the evening and 1 strip before bedtime. Check blood sugar 4-5 times daily, fasting and 1 hour after meals. Use as directed. Dispense per insurance preference.. [id number] Start: 04-12-2023 Clinical Notes 04-12-2023 to 01-14-2025 Kendra Smith NP - 01/14/2025 9:20 AM DIMAS Florentino - 01/06/2025 10:20 AM Madi Christensen LPN - 12/24/2024 10:00 AM DIMAS Florentino - 12/12/2024 10:10 AM EDT Note Date & Type Note Facility 01-14-2025 History of Presen t illness Narrative Reason for Appointment: Patient ID: Hesham Avalos is a 24 y.o. female who presents for Routine Visit Patient presents today for Return OB appointment. MEDICATIONS Current Outpatient Medications Medication Instructions Ferrous Gluconate (IRON 27 PO) 1 each, Daily Gjruldtd-Oiz-Ve-FA (PRE-SIGIFREDO PO) 1 each, Daily ALLERGIES No Known Allergies PROBLEMS Active Ambulatory Problems Diagnosis Date Noted History of placental abnormality 12/24/2024 Resolved Ambulatory Problems Diagnosis Date Noted Obesity affecting in second trimester ([facility]) 01/27/2023 Velamentous insertion of umbilical cord in second trimester ([facility]) 01/27/2023 Past Medical History: Diagnosis Date 6 weeks follow-up ([facility]) HISTORY PAST MEDICAL HISTORY SOCIAL HISTORY Past Medical History: Diagnosis Date 6 weeks follow-up ([facility]) Social History Tobacco Use Smoking status: [...] nursing note reviewed. Exam conducted with a remotely piloted vehicle controller present. Vitals: Estimated body mass index is 39.48 kg/m as calculated from the following: Height as of 11/21/23: 5' 4 . Weight as of this encounter: 230 lb. BP: 122/68 Patient's last menstrual period was 05/06/2024. ASSESSMENT & PLAN ICD-10-CM 1. Third trimester ([facility]) Z34.93 POCT urinalysis dipstick manually resulted CULTURE, GROUP B STREP WITH SUSCEPTIBLITY CULTURE, GROUP B STREP WITH SUSCEPTIBLITY 2. 36 weeks gestation of ([facility]) Z3A.36 Patient is doing well but [...] Kendra Smith NP documented in this encounter [facility] 01-06-2025 History of Presen t illness Narrative Reason for Appointment: Patient ID: Hesham Avalos is a 24 y.o. female who presents for Routine Visit Patient presents today for Return OB appointment. MEDICATIONS Current Outpatient Medications Medication Instructions Ferrous Gluconate (IRON 27 PO) 1 each, Daily Xxiwpnir-Bxu-Fw-FA (PRE-SIGIFREDO PO) 1 each, Daily ALLERGIES No Known Allergies PROBLEMS Active Ambulatory Problems Diagnosis Date Noted History of placental abnormality 12/24/2024 Resolved Ambulatory Problems Diagnosis Date Noted Obesity affecting in second trimester ([facility]) 01/27/2023 Velamentous insertion of umbilical cord in second trimester ([facility]) 01/27/2023 Past Medical History: Diagnosis Date 6 weeks follow-up ([facility]) HISTORY PAST MEDICAL HISTORY SOCIAL HISTORY Past Medical History: Diagnosis Date 6 weeks follow-up ([facility]) Social History Tobacco Use Smoking status: [...] Vitals: Estimated body mass index is 39.16 kg/m as calculated from the following: Height as of 11/21/23: 5' 4 . Weight as of this encounter: 228 lb 2 oz. BP: 122/66 Patient's last menstrual period was 05/06/2024. ASSESSMENT & PLAN ICD-10-CM 1. Third trimester ([facility]) Z34.93 POCT urinalysis dipstick manually resulted 2. 35 weeks gestation of ([facility]) Z3A.35 Return OB: Patient presents today [...] of: DIMAS Cormier documented in this encounter [facility] 12-24-2024 History of Presen t illness Narrative Reason for Appointment: Patient ID: Hesham Avalos is a 24 y.o. female who presents for Routine Visit Patient presents today for Return OB appointment. MEDICATIONS Current Outpatient Medications Medication Instructions Ferrous Gluconate (IRON 27 PO) 1 each, Daily Jwerelar-Rnh-Oc-FA (PRE- PO) 1 each, Daily ALLERGIES No Known Allergies PROBLEMS Active Ambulatory Problems Diagnosis Date Noted History of placental abnormality 12/24/2024 Resolved Ambulatory Problems Diagnosis Date Noted Obesity affecting in second trimester ([facility]) 01/27/2023 Velamentous insertion of umbilical cord in second trimester ([facility]) 01/27/2023 Past Medical History: Diagnosis Date 6 weeks follow-up ([facility]) HISTORY PAST MEDICAL HISTORY SOCIAL HISTORY Past Medical History: Diagnosis Date 6 weeks follow-up ([facility]) Social History Tobacco Use Smoking status: [...] nursing note reviewed. Exam conducted with a remotely piloted vehicle controller present. Vitals: Estimated body mass index is 39.31 kg/m as calculated from the following: Height as of 11/21/23: 5' 4 . Weight as of this encounter: 229 lb. BP: 124/70 Patient's last menstrual period was 05/06/2024. ASSESSMENT & PLAN ICD-10-CM 1. Third trimester ([facility]) Z34.93 POCT urinalysis dipstick manually resulted 2. 33 weeks gestation of ([facility]) Z3A.33 3. History of placental abnormality [...] Don Hidalgo DO documented in this encounter [facility] 12-12-2024 History of Presen t illness Narrative Reason for Appointment: Patient ID: Hesham Avalos is a 24 y.o. female who presents for Routine Visit Patient presents today for Return OB appointment. MEDICATIONS Current Outpatient Medications Medication Instructions Ferrous Gluconate (IRON 27 PO) 1 each, Daily Vhccmajd-Ywc-Jn-FA (PRE- PO) 1 each, Daily ALLERGIES No Known Allergies PROBLEMS Active Ambulatory Problems Diagnosis Date Noted No Active Ambulatory Problems Resolved Ambulatory Problems Diagnosis Date Noted Obesity affecting in second trimester ([facility]) 01/27/2023 Velamentous insertion of umbilical cord in second trimester ([facility]) 01/27/2023 Past Medical History: Diagnosis Date 6 weeks follow-up ([facility]) HISTORY PAST MEDICAL HISTORY SOCIAL HISTORY Past Medical History: Diagnosis Date 6 weeks follow-up ([facility]) Social History Tobacco Use Smoking status: [...] ASSESSMENT & PLAN ICD-10-CM 1. Third trimester ([facility]) Z34.93 POCT urinalysis dipstick manually resulted 2. 31 weeks gestation of ([facility]) Z3A.31 Return OB: Patient presents today [...] of: DIMAS Cormier documented in this encounter [facility] 11-28-2024 History of Presen t illness Narrative Reason for Appointment: Patient ID: Hesham Avalos is a 24 y.o. female who presents for Routine Visit Patient presents today for Return OB appointment. MEDICATIONS Current Outpatient Medications Medication Instructions Ferrous Gluconate (IRON 27 PO) 1 each, Daily Nbfpzirs-Cyz-Zh-FA (PRE- PO) 1 each, Daily ALLERGIES No Known Allergies PROBLEMS Active Ambulatory Problems Diagnosis Date Noted No Active Ambulatory Problems Resolved Ambulatory Problems Diagnosis Date Noted Obesity affecting in second trimester ([facility]) 01/27/2023 Velamentous insertion of umbilical cord in second trimester ([facility]) 01/27/2023 Past Medical History: Diagnosis Date 6 weeks follow-up ([facility]) HISTORY PAST MEDICAL HISTORY SOCIAL HISTORY Past Medical History: Diagnosis Date 6 weeks follow-up ([facility]) Social History Tobacco Use Smoking status: [...] nursing note reviewed. Exam conducted with a remotely piloted vehicle controller present. Vitals: Estimated body mass index is 38.62 kg/m as calculated from the following: Height as of 24: 5' 4 . Weight as of this encounter: 225 lb. BP: 118/74 Patient's last menstrual period was 05/06/2024. ASSESSMENT & PLAN ICD-10-CM 1. Third trimester ([facility]) Z34.93 POCT urinalysis dipstick manually resulted 2. 29 weeks gestation of ([facility]) Z3A.29 Patient presents today for a [...] Don Hidalgo DO documented in this encounter [facility] 11-14-2024 History of Presen t illness Narrative Reason for Appointment: Patient ID: Hesham Avalos is a 24 y.o. female who presents for Routine Visit Patient presents today for Return OB appointment. MEDICATIONS Current Outpatient Medications Medication Instructions Ferrous Gluconate (IRON 27 PO) 1 each, Daily Zfpfabrw-Pxm-Vc-FA (PRE-SIGIFREDO PO) 1 each, Daily ALLERGIES No Known Allergies PROBLEMS Active Ambulatory Problems Diagnosis Date Noted No Active Ambulatory Problems Resolved Ambulatory Problems Diagnosis Date Noted Obesity affecting in second trimester ([facility]) 01/27/2023 Velamentous insertion of umbilical cord in second trimester ([facility]) 01/27/2023 Past Medical History: Diagnosis Date 6 weeks follow-up ([facility]) HISTORY PAST MEDICAL HISTORY SOCIAL HISTORY Past Medical History: Diagnosis Date 6 weeks follow-up ([facility]) Social History Tobacco Use Smoking status: [...] ASSESSMENT & PLAN ICD-10-CM 1. Second trimester ([facility]) Z34.92 POCT urinalysis dipstick manually resulted 2. 27 weeks gestation of ([facility]) Z3A.27 Return OB: Patient presents today [...] of: DIMAS Cormier documented in this encounter [facility] 10-17-2024 History of Presen t illness Narrative Reason for Appointment: Patient ID: Hesham Avalos is a 24 y.o. female who presents for Routine Visit Patient presents today for Return OB appointment. MEDICATIONS Current Outpatient Medications Medication Instructions Ferrous Gluconate (IRON 27 PO) 1 each, Daily Lbuyalkr-Lxm-Rf-FA (PRE-SIGIFREDO PO) 1 each, Daily ALLERGIES No Known Allergies PROBLEMS Active Ambulatory Problems Diagnosis Date Noted No Active Ambulatory Problems Resolved Ambulatory Problems Diagnosis Date Noted Obesity affecting in second trimester ([facility]) 01/27/2023 Velamentous insertion of umbilical cord in second trimester ([facility]) 01/27/2023 Past Medical History: Diagnosis Date 6 weeks follow-up ([facility]) HISTORY PAST MEDICAL HISTORY SOCIAL HISTORY Past Medical History: Diagnosis Date 6 weeks follow-up ([facility]) Social History Tobacco Use Smoking status: [...] nursing note reviewed. Exam conducted with a remotely piloted vehicle controller present. Vitals: Estimated body mass index is 38.66 kg/m as calculated from the following: Height as of 24: 5' 4 . Weight as of this encounter: 225 lb 4 oz. BP: 114/58 Patient's last menstrual period was 05/06/2024. ASSESSMENT & PLAN ICD-10-CM 1. Second trimester ([facility]) Z34.92 POCT urinalysis dipstick manually resulted 2. 23 weeks gestation of ([facility]) Z3A.23 3. Diabetes mellitus screening Z13.1 CBC Glucose tolerance, 1 hour CBC Glucose tolerance, 1 hour Patient presents today for a routine obstetrics appointment. Patient is currently 23w3d with a Estimated Date of Delivery: 02/10/25. Patient given orders for CBC/1hour gtt and is scheduled for with [facility] for repeat US. Patient to return to clinic in 4 weeks for return OB appointment. Documented by Franci Boyd LPN on behalf of: Don Hidalgo DO documented in this encounter [facility] 10-07-2024 Hospital Discharg e instructions Patient [...] care provider who specializes in women's health (fiberglasser). How is this treated? Treatment for this [...] partner about your condition. General instructions Take ztjt-coh-rhccaha and prescription medicines only as told by [...] sexual activity until your symptoms improve. Take fndb-emw-uqncwxw and prescription medicines only as told by [...] provider. Document Revised: 2021 Document Reviewed: 2021 [employer] Patient Education 2023 [employer]. Follow Up Care 08/08/2024 12:40:44 With:TINO MACK, Darin Cummins, URL Address: [facility] [address], [place] [address]- [phone] When: only if needed [facility] 10-07-2024 Note Patient Education [...] care provider who specializes in women's health (fiberglasser). How is this treated? Treatment for this [...] about your condition. General instructions ??? Take mlms-zzr-nxswelc and prescription medicines only as told by [...] activity until your symptoms improve. ??? Take kibz-xrw-tcqxwyn and prescription medicines only as told by your health care provider. ??? Contact a health care provider if your symptoms get worse or do not improve with treatment. ??? Keep all follow-up visits. This is important. This information is not intended to replace (more content not included)... [facility] [facility] 09[facility] History of Presen t illness Narrative [...] GENDER Have you been seen here at [facility] in a previous ? No Recent ER visits or hospitalizations? No Bring blood sugar log or meter with you today? (Please bring them with you for every visit at [facility]) n/a Flu vaccine (Feb-June)? No Any [...] insurance preference.., Disp: 100 each, Rfl: 1 [id number]-oadw-mpcog-xt1 (DUET DHA WITH OMEGA-3) 25 mg iron-1 mg -400 mg combo pack, Take by mouth., Disp: , Rfl: ferrous sulfate (HIGH POTENCY IRON) 27 mg iron tablet, Take by mouth. (Patient not taking: Reported on 09/23/2024), Disp: , Rfl: [id number]-qqtp-guvbm-fe6 25 mg iron-1 mg -400 mg combo [...] 39 weeks 8. Delivery method preferred vaginal. Adah C/S for usual obstetrical indications TIME OF CONSULTATION: We spent 30 minutes with the patient, >50% in discussion and counseling, coordination of care which was aceo-ib-aetx. documented in this encounter [facility] 09-17-2024 History of Presen t illness Narrative Reason for Appointment: Patient ID: Hesham Avalos is a 24 y.o. female who presents for Routine Visit Patient presents today for Acute Visit. and Return OB appointment. MEDICATIONS Current Outpatient Medications Medication Instructions Ferrous Gluconate (IRON 27 PO) 1 each, Daily Zsjjdtcj-Itq-Tc-FA (PRE-SIGIFREDO PO) 1 each, Daily ALLERGIES No [...] Gluconate (IRON 27 PO) 1 each, Daily Ffjnqaby-Iyc-Ei-FA (PRE-SIGIFREDO PO) 1 each, Daily ALLERGIES No [...] nursing note reviewed. Exam conducted with a remotely piloted vehicle controller present. Vitals: Estimated body mass index is [...] of: DIMAS Cormier documented in this encounter [facility] 08-20-2024 History of Presen t illness Narrative Reason for Appointment: Patient ID: Hesham Avalos is a 24 y.o. female who presents for Routine Visit Patient presents today for Return OB appointment. MEDICATIONS Current Outpatient Medications Medication Instructions Ferrous Gluconate (IRON 27 PO) 1 each, Daily Rwvxvkbz-Spo-Ze-FA (PRE- PO) 1 each, Daily ALLERGIES No [...] nursing note reviewed. Exam conducted with a remotely piloted vehicle controller present. Vitals: Estimated body mass index is [...] 15w1d with a Estimated Date of Delivery: 10/27/25. Pt to see [facility] in September for anatomy scan. Pt given early one hour. Pt to return in 4 weeks for scheduled ob appt. Pt advised to take a baby aspirin. Documented by Brittany Christensen LPN on behalf of: Don Hidalgo DO documented in this encounter [facility] 08-05-2024 Note Patient Education Urology Cystoscopy [...] including vitamins, herbs, eye drops, creams, and dhsq-ied-otjmwbt medicines. ??? Any problems you or family [...] tells you to take them. ??? Taking xdbj-mdb-qzokfxb medicines, vitamins, herbs, and supplements. Tests You [...] these instructions at home: Medicines ??? Take pusn-uoj-ctqpvbm and prescription medicines only as told by [...] (biopsy) during your (more content not included)... [facility] 07-23-2024 History of Presen t illness Narrative Reason for Appointment: Patient ID: Hesham Avalos is a 23 y.o. female who presents for No chief complaint on file. Patient presents today for Return OB appointment. MEDICATIONS Current Outpatient Medications Medication Instructions Ferrous Gluconate (IRON 27 PO) 1 each, Daily Gmcgmdip-Tvx-Ck-FA (PRE-SIGIFREDO PO) 1 each, Daily ALLERGIES No [...] Diabetes Maternal Grandmother Fior Cancer Maternal Grandfather Firo Heart failure Maternal Grandfather Fior Cancer Paternal [...] nursing note reviewed. Exam conducted with a remotely piloted vehicle controller present. Vitals: Estimated body mass index is [...] or undercooked meat, and stay away from [facility]. Patient has been consulted regarding any further do's and don'ts of . Patient voiced understanding and all questions and concerns were answered. Cultures obtained. Pt being referred to [facility] for h/o placental abnormality (vasa previa). Pt has cyst on urethra- referred to urologist Orders Placed This Encounter Procedures CHLAMYDIA TRACHOMATIS (GENITO/STI) Neisseria gonorrhea DNA probe, direct POCT urinalysis dipstick manually resulted Follow Up: Patient is to return in 4 weeks for routine OB appointment. Documented by Brittany Christensen LPN on behalf of: Don Hidalgo DO documented in this encounter [facility] 05-24-2023 History of Presen t illness Narrative Hesham Avalos is a 22 y.o. 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 SUBJECTIVE: MEDICATIONS: Current Outpatient Medications Medication Instructions Mryffu-MiWntq-Imaku-FA-[place] 3 (Duet DHA 400) 25-1 & 400 [...] tenderness or frontal sinus tenderness. Mouth/Throat: Lips: Humble. Mouth: Mucous membranes are moist. Pharynx: Oropharynx [...] follow-ups on file. documented in this encounter [facility] 04-12-2023 History of Presen t illness [...] Drug Allergies CURRENT MEDICATIONS: Current Outpatient Medications: [id number]-ysbqu-oy5 (DUET DHA WITH OMEGA-3) 25 mg iron-1 [...] insurance preference.., Disp: 100 each, Rfl: 1 izz973-azcw-xrxuz-ux6 25 mg iron-1 mg -400 mg combo [...] patient is in complete care of her assembler. Patient does have ultrasound and office visit scheduled with us. Thank you for allowing me to participate in the care of Hesham Hassan Bailey. If there any questions please do not hesitate to contact us. Daniella Reina MD Maternal- Medicine [facility] [address] [place] [address] [facility], the CDC, and other organizations representing maternal and public health professionals recommend that , , and lactating people and those considering receive the COVID-19 vaccination. Vaccination is the best method to reduce maternal and complications of SARS-CoV-2 infection. This document was created with [employer] technology. Though I make every effort to review the dictation as it is transcribed, on occasion the spoken word can be misinterpreted by the technology leading to inappropriate words, phrases, or sentences. This note is addressed to the requesting provider as a consultation for clinical guidance. Specific medical abbreviations are occasionally used and those are generally approved by the [place]?Board of?Obstetrics and?Gynecology?as well as?Scout s abbreviations. The above plan of care was based solely on the diagnoses for which a consultation was requested. ?More frequent testing may be indicated based on her other medical/obstetrical conditions. The management of other or medical conditions is beyond the scope of requested consultation and will continue to be followed by the primary assembler or primary care provider. Note to patient: [...] of the practitioner. documented in this encounter [email or web address] Plan note No data available for this section [facility] [place] Evaluation note Diagnosis Encounter for wellness examination- Primary Anemia, unspecified type documented in this encounter [facility] HealthcareEvaluation note* Diagnosis 35 weeks gestation of - Primary Polyhydramnios affecting documented in this encounter [facility] [employer] SystemEvaluation note* Diagnosis 11 weeks gestation of First trimester state, incidental History of placental abnormality Vaginal discharge Leukorrhea, not specified as infective Urethral cyst Other specified disorders of urethra documented in this encounter [facility] HealthcareEvaluation note* Diagnosis Second trimester state, incidental 15 weeks gestation of Diabetes mellitus screening Screening for diabetes mellitus documented in this encounter [facility] HealthcareEvaluation note* Diagnosis Obesity affecting in second trimester, unspecified obesity type- Primary documented in this encounter [facility] [employer] SystemEvaluation note* Diagnosis Polyhydramnios affecting - Primary Low-lying placenta Hemorrhage from placenta previa, unspecified as to episode of care Placenta previa in second trimester Velamentous insertion of umbilical cord in second trimester Vasa previa, single or unspecified fetus History of hemorrhage, currently in second trimester documented in this encounter [facility] [employer] SystemEvaluation note* Diagnosis Second trimester state, incidental 19 weeks gestation of Screening, , for anatomic survey Encounter for anatomic survey documented in this encounter [facility] HealthcareEvaluation note* Diagnosis Second trimester (HHS-HCC) state, incidental 23 weeks gestation of (HHS-HCC) Diabetes mellitus screening Screening for diabetes mellitus documented in this encounter [facility] HealthcareEvaluation note* Diagnosis Second trimester (HHS-HCC) state, incidental 27 weeks gestation of (HHS-HCC) documented in this encounter [facility] HealthcareEvaluation note* Diagnosis Third trimester (HHS-HCC) state, [...] note* Diagnosis Third trimester (HHS-HCC) state, incidental 35 weeks gestation of (HHS-HCC) documented in this encounter [facility]* Diagnosis Third trimester (HHS-HCC) state, incidental 36 weeks gestation of (HHS-HCC) History of placental [...] available for this section [facility] Summary Purpose Family History No Family [...] rosales Referred To Contact Daniella Reina MD [address] [facility] [address] [place] [address] Referral ID Status Reason Start Date Expiration Date V isits Requested Visits Authorized [id number] Pending Review 1 1 Referral ID Status Reason Start Date Expiration Date V isits Requested Visits Authorized [id number] Pending Review 1 1 Additional Source Comments INFORMATION SOURCE (unrecogn ized section and content) DATE CREATED AUTHOR 10/05/2018 [facility] DATE CREATED AUTHOR AUTHOR'S ORGANIZ ATION 04/13/2022 [facility] DATE CREATED AUTHOR AUTHOR'S ORGANIZ ATION 07/27/2024 [facility] DATE CREATED AUTHOR AUTHOR'S ORGANIZ ATION 09/24/2024 [facility] DATE CREATED AUTHOR AUTHOR'S ORGANIZ ATION 10/08/2024 [facility] DATE CREATED AUTHOR AUTHOR'S ORGANIZ ATION 10/29/2024 [facility] DATE CREATED AUTHOR AUTHOR'S ORGANIZ ATION 01/06/2025 [facility] dical Specialists [facility] Care Teams (unrecognized sec tion and content) Screen Printing Inspector Relationship Specialty Start Date End Date Taisha Pena MD [address] [facility] [place] [address] PCP - General Family Medicine 05/03/23 Screen Printing Inspector Relationship Specialty Start Date End Date Taisha Pena MD [address] [facility] [place] [address] PCP - General Family Medicine 05/03/23 Screen Printing Inspector Relationship Specialty Start Date End Date Taisha Pena MD [address] [facility] [place] [address] PCP - General Family Medicine 05/03/23 Screen Printing Inspector Relationship Specialty Start Date End Date Taisha Pena MD [address] [facility] [place] [address] PCP - General Family Medicine 05/03/23 Screen Printing Inspector Relationship Specialty Start Date End Date Taisha Pena MD [address] [facility] [place] [address] PCP - General Family Medicine 05/03/23 Screen Printing Inspector Relationship Specialty Start Date End Date Taisha Pena MD [address] [place] [address] PCP - General Family Medicine 05/03/23 Screen Printing Inspector Relationship Specialty Start Date End Date Taisha Pena MD [address] [place] [address] PCP - General Family Medicine 05/03/23 Screen Printing Inspector Relationship Specialty Start Date End Date Taisha Pena MD [address] [place] [address] PCP - General Family Medicine 05/03/23 Stephanie Sotelo NP [address] [place] [address] PCP - [employer] Commercial 07/16/24 Screen Printing Inspector Relationship Specialty Start Date End Date Taisha Pena MD [address] [place] [address] PCP - General Family Medicine 05/03/23 Stephanie Sotelo NP [address] [place] [address] PCP - [employer] Commercial 07/16/24 Screen Printing Inspector Relationship Specialty Start Date End Date Taisha Pena MD [address] [place] [address] PCP - General Family Medicine 05/03/23 Stephanie Sotelo NP [address] [place] [address] PCP - [place] Omnireliant 07/16/24 Screen Printing Inspector Relationship Specialty Start Date End Date Taisha Pena MD [address] [place] [address] PCP - General Family Medicine 05/03/23 Stephanie Sotelo NP [address] [place] [address] PCP - [place] Omnireliant 07/16/24 Screen Printing Inspector Relationship Specialty Start Date End Date Taisha Pena MD [address] [place] [address] PCP - General [facility] 05/03/23 Stephanie Sotelo NP [address] [place] [address] PCP - [place] Omnireliant 07/16/24 Screen Printing Inspector Relationship Specialty Start Date End Date Taisha Pena MD [address] [place] [address] PCP - General [facility] 05/03/23 Stephanie Sotelo NP [address] [place] [address] PCP - [place] Omnireliant 07/16/24 Reason for Visit (unrecogniz ed section [...] BE BASED ON THE PRIMARY CLINICAL RECORDS. [facility]. provides no warranty or guarantee of the accuracy or completeness of information in this document.
--- OUTSIDE RECORDS SUMMARY | 2025-01-18 10:11 | XMS_ITS | Encounter Summary ---
Author Organization [facility] Address [address] [place] [address] Care Team Providers Care Visualizer Name Role Phone Taisha Ortiz MD Primary Care Provider [phone] Stephanie Sotelo SPORT PSYCHOLOGIST Unavailable [phone] Encounter Details Date Type Department Care Team (Late st Contact Info) Description 10/28/2024 Abstract [facility] [address] [place] [id number] Don Hidalgo DO [address] [place] [address] Social History Tobacco Use Types Packs/Day Years [...] often do you attend chur ch or moravian services? 1 to 4 times per year 05/17/2023 Do you belong to any clubs o r organizations such as yarsani groups, unions, fraternal or athletic groups, or [...] Recorded Patient Health Questionnaire-2 Score 0 05/24/2023 [facility] of Occupat ional [facility] - Occupational Stress Questionnaire Answer Date [...] AM EDT Routine [facility] JAVIER [address] [place] [address] Kendra Smith NP [address] [place] [address] documented as of this encounter Visit Diagnoses Not on filedocumented in this encounter Care Teams Visualizer Relationship Specialty Start Date End Date Taisha Ortiz MD [address] [place] [address] PCP - General Family Medicine 05/03/23 Stephanie Sotelo NP [address] [place] [id number] PCP - Carloz Eduardo 07/16/24 documented as of this encounter
--- OUTSIDE RECORDS SUMMARY | 2025-01-18 10:11 | XMS_ITS | Encounter Summary ---
Author Organization [facility] Address [address] [place] [address] Care Team Providers Care Drafting Detailer Name Role Phone Taisha Ortiz MD Primary Care Provider [phone] Stephanie Sotelo PLUG STITCHER Unavailable [phone] Encounter Details Date Type Department Care Team (Late st Contact Info) Description 01/06/2025 Bamboo flowsheet CONY Spencer OBGYNikole [address] [place] [address] Kathie Lee PA [address] [place] [address] Social History Tobacco Use Types Packs/Day Years [...] often do you attend chur ch or sikhism services? 1 to 4 times per year 05/17/2023 Do you belong to any clubs o r organizations such as protestant groups, unions, fraternal or athletic groups, or [...] 0 05/24/2023 [facility] of Occupat ional [facility] - Occupational Stress Questionnaire Answer Date [...] place to sleep or slept in a mcc (including now)? No 05/17/2023 Estimated Date of [...] AM EDT Routine [facility] [address] [place] [address] Kendra Smith NP [address] [place] [address] documented as of this encounter Visit Diagnoses Not on filedocumented in this encounter Care Teams Drafting Detailer Relationship Specialty Start Date End Date Taisha Ortiz MD [address] [place] [address] PCP - General Family Medicine 05/03/23 Stephanie Sotelo NP [address] [place] [address] PCP - Carloz Eduardo 07/16/24 documented as of this encounter
--- OUTSIDE RECORDS SUMMARY | 2025-01-18 10:11 | XMS_ITS | Encounter Summary ---
Author Organization [facility] Address [address] [place] [address] Care Team Providers Care Estate Planning Counselor Name Role Phone Taisha Ortiz MD Primary Care Provider Stephanie Sotelo MERCANTILE REPORTER Unavailable [phone] Encounter Details Date Type Department Care Team (Late st Contact Info) Description 07/17/2024 Abstract [facility] [address] [address] Don Hidalgo DO [address] [place] [address] Social History Tobacco Use Types Packs/Day Years [...] often do you attend chur ch or episcopal services? 1 to 4 times per year 05/17/2023 Do you belong to any clubs o r organizations such as druze groups, unions, fraternal or athletic groups, or [...] 05/24/2023 [facility] of Occupat ional [facility] - Occupational Stress Questionnaire Answer Date [...] JAVIER [address] [address] Kendra Smith NP [address] [place] [address] documented as of this encounter Visit Diagnoses Not on filedocumented in this encounter Care Teams Estate Planning Counselor Relationship Specialty Start Date End Date Taisha Ortiz MD [address] [place] [address] PCP - General Family Medicine 05/03/23 Stephanie Sotelo NP [address] [place] [id number] PCP - Carloz Eduardo 07/16/24 documented as of this encounter
--- OUTSIDE RECORDS SUMMARY | 2025-01-18 10:11 | XMS_ITS | Clinical Summary ---
Author Organization [facility] Address [id number] [place] [address] Care Team Providers Care Cook Tortilla Name Role Phone Unavailable Primary Care Provider Unavailabl e Allergies Active Allergy Reactions Criticality Noted Date Comments No Known Drug Allergies 05/29/2017 Medications [id number] lic-om3 25 mg iron-1 mg -400 mg combo pack Take by mouth. A ctive ferrous sulfate (HIGH POTENCY IRON) 27 mg iron tablet Take by mouth. Activ e fyr747-tqdo-oy lic-om3 (DUET DHA WITH OMEGA-3) 25 mg [...] often do you attend chur ch or uatsdin services? Never 01/31/2021 Do you belong to any clubs o r organizations such as roman catholic groups, unions, fraternal or athletic groups, [...] Answer Date Recorded Total Score 6 01/31/2021 [facility] of Occupat ional Health - Occupational [...] Recorded Do you need help finding a [facility] career center and/or a training program? No [...] Relevant to Health Maintenance Results * [facility] OB FOLLOW-UP, 1 FETUS (10/24/2024 2:23 PM EDT) Anatomical Region Laterality Modality OB-PRIMARY CARE PROVIDER Ultrasound 10/24/2024 12:5 8 PM EDT Narrative 10/25/2024 12:56 PM EDT NAME: CLAUDIA DAHL : 2000 SEX: F Accession Number: [id number] ORDERING PHYSICIAN: CINTIA BANEGAS REFERRING PHYSICIAN: REBECA PACE Coding ----- --------- Procedures [id number]: Follow-up Ultrasound, per fetus Indication ----- --------- [...] EFW (oz) 15 oz EFW by: Hadlock (TOW-ZO-II-FL) Extended Tibia 40.1 mm 25w 2d 74% Heri Electrode Cleaner 4.7 mm CM 7.6 mm 89% Nicolaides [...] view. RVOT view. LVOT view. 3-vessel view. 6-kutkor-zdgpwks view. Situs. Aortic arch view. Bicaval view. [...] DAHL : 2000 SEX: F Accession Number: [id number] ORDERING PHYSICIAN: CINTIA BANEGAS REFERRING PHYSICIAN: REBECA PACE Coding ----- --------- Procedures [id number]: Follow-up Ultrasound, per fetus Indication ----- --------- [...] EFW (oz) 15 oz EFW by: Hadlock (VRB-XR-PE-FL) Extended Tibia 40.1 mm 25w 2d 74% Heri Electrode Cleaner 4.7 mm CM 7.6 mm 89% Nicolaides [...] 4-chamber view. RVOT view. LVOT view. 3-vessel view.5-nkxwvn-aoamtxc view. Situs. Aortic arch view. Bicaval view. [...] thepatient as necessary. us Cintia Banegas MD [facility] US ORDERABLES Final Resul t * Chlamydia/GC by PCR Elisabeth Swab (11/09/2022) Chlamydia Dna(Pcr) negative MANUALLY TRANSCRIBED RESULTS Gonorrhoeae Dna(Pcr) negative MANUALLY TRANSCRIBED RESULTS us Not In System Ref Prov MICROBIOLOGY - GENERAL OR DERABLES Final Result MANUALLY TRANSCRIBED RESULTS from Last 3 Months or Most Recently Relevant to Health Maintenance Insurance ANTH
--- OUTSIDE RECORDS SUMMARY | 2025-01-18 10:11 | XMS_ITS | Clinical Summary ---
Author Organization [facility] Address [address] [place] [address] Care Team Providers Care Railway Track Worker Name Role Phone Taisha Pena MD Primary Care Provider [phone] Stephanie Sotelo BUYER RENTER Unavailable [phone] Allergies No known active allergies Medications Fyzbtkoj-Lrm-Fa- FA (PRE- PO) Take 1 each by [...] Resolved Date Obesity affecting in second trimester ([facility]) 01/27/2023 04/25/2023 Velamentous insertion of umb ilical cord in second trimester ([facility]) 01/27/2023 04/25/2023 Encounters Date Type Department Care Team Description 01/14/2025 9:20 [place] [phone] Kendra Smith NP Third trimester ([facility]); 36 weeks gestation of ([facility]); History of placental abnormality; Excessive growth affecting management of , antepartum, single or unspecified fetus ([facility]) 01/14/2025 9:00 AM EDT Ancillary Procedure [place] [address] Excessive growth affecting management of , antepartum, single or unspecified fetus ([facility]) 01/06/2025 10:20 AM EDT Routine [facility] [place] [facility] [place] [address] Kathie Lee PA Third trimester ([facility]); 35 weeks gestation of ([facility]) 01/06/2025 Bamboo flowsheet [facility] [place] [facility] [place] [address] Kathie Lee PA 12/24/2024 10:00 AM EDT Routine [facility] [place] [facility] [place] [address] Rebeca Hidalgo DO Third trimester ([facility]); 33 weeks gestation of ([facility]); History of placental abnormality; Excessive growth affecting management of , antepartum, single or unspecified fetus ([facility]) 12/24/2024 Bamboo flowsheet [facility] [place] [address] [place] [address] [place] [address] Rebeca Hidalgo DO 12/14/2024 Clinisync Result Encounter NOMS External Department Unsolicited Provider, Generic External Data 12/12/2024 10:10 AM EDT Routine [facility] [place] [facility] [place] [address] Kathie Lee PA Third trimester ([facility]); 31 weeks gestation of ([facility]) 12/12/2024 Bamboo flowsheet [facility] [place] [facility] [place] [address] Kathie Lee PA 11/28/2024 8:30 AM EDT Routine [facility] [place] [facility] [place] [address] Rebeca Hidalgo DO Third trimester ([facility]); 29 weeks gestation of ([facility]); History of placental abnormality; Excessive growth affecting management of in third trimester, single or unspecified fetus ([facility]) 11/28/2024 Bamboo flowsheet [facility] [address] [place] [address] Rebeca Hidalgo DO 11/16/2024 Clinisync Result Encounter NOMS External Department Unsolicited Provider, Generic External Data 11/14/2024 11:20 [place] [address] Kathie Lee PA Second trimester ([facility]); 27 weeks gestation of ([facility]) 11/14/2024 [place] [address] Kathie Lee PA 11/09/2024 Travel 10/28/2024 Abstract [facility] [address] [address] [place] [address] Rebeca Hidalgo DO from Last 3 Months [...] often do you attend chur ch or pentecostalism services? 1 to 4 times per year 05/17/2023 Do you belong to any clubs o r organizations such as adventism groups, unions, fraternal or athletic groups, or [...] Recorded Patient Health Questionnaire-2 Score 0 05/24/2023 [facility] of Occupat ional Health - Occupational Stress [...] EDT Routine [facility] [address] [facility] [place] [address] Kendra Smith, HASMUKH [address] [facility] [facility] [place] [address] Health Maintenance Due Date Last Done [...] Routine 01/06/2025 10:42 AM EDT Third trimester ([facility]) POCT URINALYSIS DIPSTICK Routine 12/24/2024 10:13 AM EDT Third trimester ([facility]) US OB GROWTH 12/14/2024 11:17 AM EDT POCT URINALYSIS DIPSTICK Routine 12/12/2024 11:01 AM EDT Third trimester ([facility]) POCT URINALYSIS DIPSTICK Routine 11/28/2024 8:48 AM EDT Third trimester ([facility]) GLUCOSE 1 HOUR Routine 11/16/2024 10:06 AM EDT ALL CBC WITH AUTO DIFF Routine 10:06 AM EDT POCT URINALYSIS DIPSTICK Routine 11/14/2024 11:35 AM EDT Second trimester ([facility]) from Last 3 Months Results * (ABNORMAL) POCT urinalysis dipstick manually resulted (01/14/2025 9:48 AM EDT) Only the most recent of6 resultswithin the time period is included. Color, [...] SIGNED BY: Wayne Alarcon MD us Rebeca Hidalgo DO IMG OB US PROCEDURES Final Resul t * US OB GROWTH (12/14/2024 11:17 AM EDT) Anatomical Region Laterality Modality Other 12/14/2024 11:1 7 AM EDT Narrative 12/14/2024 11:19 [place] [address] Ultrasound Report Signed Patient: HESHAM AVALOS MR#: [id number] : 2000 Acct:[id number] Age/Sex: 24 / F ADM Date: 12/14/24 Loc: US Attending Dr: Rebeca Hidalgo D.O. Ordering Physician: Rebeca Hidalgo D.O. Date of Service: 12/14/24 Procedure(s): US OB growth Accession Number(s): [id number] cc: Rebeca Hidalgo D.O.; TAISHA PENA The [address] [address] Patient Name: HESHAM AVALOS MRN: [facility]:[id number] date: 2000 Sex: F Assigned Patient Location: US Current Patient Location: US Accession/Order Number: [id number] Exam Date: 12/14/2024 09:50 Report Date: 12/14/2024 [...] Atkinson M.D. 12/14/2024 11:17 AM Dictation Location: [place] [address] Electronically authenticated by: [id number] Y Date: 12/14/2024 11:17 Dictated By: Wilfrido Atkinson M.D. Signed By: 12/14/24 1119 DD/ 1117 TD/TT: [employer] Farmer: Procedure Note Radiology, Radiologist, MD - 12/14/2024 [place] [address] Ultrasound Report Signed Patient: HESHAM AVALOS AMR#: [id number] : 2000Acct:[id number] Age/Sex: 24 / FADM Date: 12/14/24 Loc: US Attending Dr: Rebeca Hidalgo D.O. Ordering Physician: Rebeca Hidalgo D.O. Date of Service: 12/14/24 Procedure(s): US OB growth Accession Number(s): [id number] cc: Rebeca Hidalgo D.O.; TAISHA PENA [place] [id number] Patient Name: HESHAM AVALOS MRN: [facility]:[id number] date: 2000 Sex: F Assigned Patient Location: US Current Patient Location: Accession/Order Number: [id number] Exam Date: 12/14/2024 09:50 Report Date: 12/14/2024 [...] Atkinson M.D. 12/14/2024 11:17 AM Dictation Location: [place] [address] Electronically authenticated by: [id number] Y Date: 1:17 Dictated By: Wilfrido Atkinson M.D. Signed By:12/14/24 1119 DD/ 1117 TD/TT: [employer] Farmer: us Generic External Data Provider [facility] Final Result * GLUCOSE 1 HOUR (11/16/2024 10:06 AM EDT) GLUCOSE 1 HOUR 120 <130 mg/dL [facility] 11/16/2024 10:0 6 AM EDT 11/16/2024 10:07 AM EDT Narrative [facility] - 11/16/2024 10:45 AM EDT us Rebeca Hidalgo DO LAB BLOOD ORDERABLES Final Resul t [facility] * (ABNORMAL) ALL CBC WITH AUTO DIFF [...] [facility] from Last 3 Months Insurance [facility] Care Teams Railway Track Worker Relationship Specialty Start Date End Date Taisha Pena MD [address] [place], [place] [phone] PCP - General Family Medicine 05/03/23 Stephanie Sotelo NP [address] [place], [place] [address] PCP - [place] Commercial 07/16/24
--- OUTSIDE RECORDS SUMMARY | 2025-01-18 10:11 | XMS_ITS | Encounter Summary ---
Author Organization [facility] Address [address] [place] [address] Care Team Providers Care Carpet Binder Name Role Phone Taisha Ortiz MD Primary Care Provider [phone] Stephanie Sotelo SKILLED NURSING FACILITIES PROFESSIONAL Unavailable [phone] Encounter Details Date Type Department Care Team (Late st Contact Info) Description 07/23/2024 Abstract [facility] [place] [facility] [address] [facility] [facility] [place] [address] Don Hidalgo DO [address] [facility] [place] [address] Social History Tobacco Use Types Packs/Day Years [...] often do you attend chur ch or confucianist services? 1 to 4 times per year 05/17/2023 Do you belong to any clubs o r organizations such as sikh groups, unions, fraternal or athletic groups, or [...] Recorded Patient Health Questionnaire-2 Score 0 05/24/2023 [facility] of Occupat ional [facility] - Occupational Stress Questionnaire Answer [...] AM EDT Routine [facility] [address] [facility] [place] [address] Kendra Smith NP [address] [facility] [place] [address] documented as of this encounter Visit Diagnoses Not on filedocumented in this encounter Care Teams Carpet Binder Relationship Specialty Start Date End Date Taisha Ortiz MD [address] [place] [address] PCP - General Family Medicine 05/03/23 Stephanie Sotelo NP [address] [place] [phone] PCP - Carloz Eduardo 07/16/24 documented as of this encounter
--- OUTSIDE RECORDS SUMMARY | 2025-01-18 10:11 | XMS_ITS | Encounter Summary ---
Author Organization [facility] Address [address] [place] [address] Care Team Providers Care Insurance Salesperson Name Role Phone Taisha Ortiz MD Primary Care Provider [phone] Stephanie Sotelo LINE REPAIRER Unavailable [phone] Encounter Details Date Type Department Care Team (Late Contact Info) Description 12/08/2022 Abstract [place] [place] [address] [place] [address] Kathie Lee PA [address] [place] [address] [place] [address] Social History Tobacco Use Types Packs/Day Years [...] EDT Routine [facility] [address] [place] [address] Kendra Smith NP [address] [place] [address] documented as of this encounter Visit Diagnoses Not on filedocumented in this encounter Care Teams Insurance Salesperson Relationship Specialty Start Date End Date Taisha Ortiz MD [address] [place] [address] PCP - General Family Medicine 05/03/23 Stephanie Sotelo NP [address] [place] [address] PCP - Carloz Eduardo 07/16/24 documented as of this encounter
--- OUTSIDE RECORDS SUMMARY | 2025-01-18 10:11 | XMS_ITS | Encounter Summary ---
Author Organization [facility] Address [address] [place] [address] Care Team Providers Care Director Of Capital Giving Name Role Phone Taisha Ortiz MD Primary Care Provider [phone] Stephanie Sotelo DRESS MARKER Unavailable [phone] Encounter Details Date Type Department Care Team (Late Contact Info) Description 04/19/2023 Clinisync Result Encounter [facility] External Department Unsolicited Rebeca Hidalgo DO [address] [place], [facility] Social History Tobacco Use Types Packs/Day [...] AM EDT Routine [facility] [address] [place] [address] Kendra Smith, HASMUKH [address] [place] [address] documented as of this encounter Procedures Procedure Name Priority Date/Time Associated Diagnosis Comments US OB BPP W NON-STRESS 04/19/2023 9:34 AM EST documented in this encounter Results * US OB BPP W NON-STRESS (04/19/2023 9:34 AM EST) Anatomical Region Laterality Modality Other 04/19/2023 9:34 AM EST Narrative 04/19/2023 9:37 AM EST The [address] [address] Ultrasound Report Signed Patient: HESHAM TAYLOR MR#: [id number] : 2000 Acct:[id number] Age/Sex: 22 / F ADM Date: 04/19/23 Loc: [facility] 250-[address]: Kathie Lee Ordering Physician: Rebeca Hidalgo D.O. Date of Service: 04/19/23 Procedure(s): US OB BPP w non-stress Accession Number(s): [id number] cc: Rebeca Hidalgo D.O.; Physician,Non-Staff M.DIsreal The [address] [address] Patient Name: HESHAM TAYLOR MRN: [facility]:[id number] date: 2000 Sex: F Assigned Patient Location: [facility] Current Patient Location: [facility] Accession/Order Number: [id number] Exam Date: 04/19/2023 09:00 Report Date: 04/19/2023 [...] By: Stu De Souza M.D. Signed By: 04/19/2337 DD/ 3 TD/TT: Poultry Feed Supervisor: Procedure Note Radiology, Radiologist, MD - 04/19/2023 [place] [address] Ultrasound Report Signed Patient: HESHAM TAYLOR AMR#: [id number] : 2000Acct:[id number] Age/Sex: 22 / FADM Date: 04/19/23 Loc: [facility] 250-[address]: Kathie Lee Ordering Physician: Rebeca Hidalgo D.O. Date of Service: 04/19/23 Procedure(s): US OB BPP w non-stress Accession Number(s): [id number] cc: Rebeca Hidalgo D.O.; Physician,Non-Staff Ann-Marie The [place] [id number] Patient Name: HESHAM TAYLOR MRN: [id number] date: 2000 Sex: F Assigned Patient Location: [facility] Current Patient Location: [facility] Accession/Order Number: [id number] Exam Date: 04/19/2023 09:00 Report Date: 04/19/2023 [...] Souza M.D. Signed By:04/19/23936 DD/ 3 TD/TT: Poultry Feed Supervisor: us Rebeca Rocky DO [facility] Final Result documented in this encounter Visit Diagnoses Not on filedocumented in this encounter Care Teams Director Of Capital Giving Relationship Specialty Start Date End Date Taisha Ortiz MD [address] [place] [address] PCP - General Family Medicine 05/03/23 Stephanie Sotelo NP [address] [place], [place] [address] PCP - Carloz Eduardo 07/16/24 documented as of this encounter
--- OUTSIDE RECORDS SUMMARY | 2025-01-18 10:11 | XMS_ITS | Encounter Summary ---
Author Organization [facility] Address [address] [place] [address] Care Team Providers Care Stencil Printer Name Role Phone Taisha Ortiz MD Primary Care Provider [phone] Stephanie Sotelo PANTRY STEWARD/STEWARDESS Unavailable [phone] Encounter Details Date Type Department Care Team (Late st Contact Info) Description 09/23/2024 External Result Encounter [facility] [address] [facility] [place] [place] [address] Rebeca Hidalgo DO [address] [facility] [address] [place], [place] [address] Social History Tobacco Use Types Packs/Day Years [...] often do you attend chur ch or baptism services? 1 to 4 times per year [...] Recorded Patient Health Questionnaire-2 Score 0 05/24/2023 [facility] of Occupat ional [facility] - Occupational [...] OBGYN [address] [facility] [place] [address] Kendra Smith, HASMUKH [address] [facility] [place] [address] documented as of this encounter Procedures Procedure Name Priority Date/Time Associated Diagnosis Comments US OB 14+ WEEKS ANATOMY SCAN 09/23/2024 1:55 PM EDT documented in this encounter Results * US OB 14+ weeks anatomy scan (09/23/2024 1:55 PM EDT) Anatomical Region Laterality Modality Body Ultrasound 09/23/2024 1:55 PM EDT Narrative 09/23/2024 1:55 PM EDT THIS EXAM WAS PERFORMED AT [facility] NAME: CLAUDIA DAHL : 2000 SEX: F Accession Number: [id number] ORDERING PHYSICIAN: CINTIA BANEGAS REFERRING PHYSICIAN: REBECA HIDALGO Coding ----- --------- Procedures 79788: Ultrasound, uterus, real time with image documentation, and maternal evaluation plus detailed anatomic examination, transabdominal approach;single or first gestation 32764: Transvaginal Ultrasound (OB) Indication ----- --------- Screening [...] EFW (oz) 13 oz EFW by: Hadlock (MRG-DB-[id number]-FL) Extended Tibia 28.7 mm 20w 3d 71% Heri Core Drill Operator 8.2 mm CM 5.6 mm 70% Nicolaides [...] Nose. Maxilla. Mandible. Orbits. Heart / Thorax 8-vjcarb-ejyboqn view. Aortic arch view. Interventricular septum. Great [...] 3.91 cm. Recommendations ----- --------- Please see [facility] documentation from today. Follow-up in 4-6 weeks is scheduled for completion of the anatomic survey Subsequent follow up or other follow up as clinically determined by primary OB provider unless otherwise specified by [facility]. Results forwarded to ordering provider so they can follow up with the patient as necessary. The copy-to physician of this order is REBECA King The ordering physician of this order is CINTIA Hartmann Procedure Note Radiology, Radiologist, - 09/23/2024 THIS EXAM WAS PERFORMED AT [facility] NAME: CLAUDIA DAHL : 2000 SEX: F Accession Number: [id number] ORDERING PHYSICIAN: CINTIA BANEGAS REFERRING PHYSICIAN: REBECA HIDALGO Coding ----- --------- Procedures 71525: Ultrasound, uterus, real time with imagedocumentation, and maternal evaluation plus detailed anatomic examination, transabdominalapproach;single or first gestation 93982: Transvaginal Ultrasound (OB) Indication ----- --------- Screening [...] EFW (oz) 13 oz EFW by: Hadlock (MOU-FK-UA-FL) Extended Tibia 28.7 mm 20w 3d 71% Heri Core Drill Operator 8.2 mm CM 5.6 mm 70% Nicolaides [...] Nose. Maxilla. Mandible. Orbits. Heart / Thorax 7-xrjjls-qpqgajz view. Aortic arch view. Interventricularseptum. Great vessels. [...] 3.91 cm. Recommendations ----- --------- Please see [facility] documentation from today. Follow-up in 4-6 weeks isscheduled for completion of the anatomic survey Subsequent follow up or other follow up as clinically determined byprimary OB provider unless otherwise specified by [facility]. Results forwarded to ordering provider so they can follow up with thepatient as necessary. The copy-to physician of this order is REBECA King The ordering physician of this order is CINTIA Hartmann us Rebeca Hidalgo DO IMG OB US PROCEDURES Final Resul t documented in this encounter Visit Diagnoses Not on filedocumented in this encounter Care Teams Stencil Printer Relationship Specialty Start Date End Date Taisha Ortiz MD [address] [place], [place] [phone] PCP - General Family Medicine 05/03/23 Stephanie Sotelo NP [address] [place] [address] PCP - Carloz Eduardo 07/16/24 documented as of this encounter
--- OUTSIDE RECORDS SUMMARY | 2025-01-18 10:11 | XMS_ITS | Encounter Summary ---
Author Organization [facility] Address [address] [place] [address] Care Team Providers Care Elementary School Tutor Name Role Phone Taisha Ortiz MD Primary Care Provider [phone] Stephanie Sotelo FIELD SALES SPECIALIST Unavailable [phone] Encounter Details Date Type Department Care Team (Late st Contact Info) Description 09/24/2024 Abstract [facility] [address] [place] [address] [place] [address] [place], [place] Social History Tobacco Use Types Packs/Day [...] often do you attend chur ch or restoration services? 1 to 4 times per year [...] 0 05/24/2023 [facility] - Occupational Stress Questionnaire [...] AM EDT Routine [facility] [address] [facility] [place] [address] Kendra Smith NP [address] [facility] [place] [address] documented as of this encounter Visit Diagnoses Not on filedocumented in this encounter Care Teams Elementary School Tutor Relationship Specialty Start Date End Date Taisha Ortiz MD [address] [place] [address] PCP - General Family Medicine 05/03/23 Stephanie Sotelo NP [address] [place] [address] PCP - [place] Commercial 07/16/24 documented as of this encounter
--- NOTE | 2025-01-18 10:12 | US_ITS ---
[place] [id number] Patient Name: HESHAM TAYLOR MRN: [id number] date: 2000 Sex: F Assigned Patient Location: [facility] Current Patient Location: Accession/Order Number: [id number] Exam Date: 01/18/2025 10:14 Report Date: 01/18/2025 12:13 At the request of: BRITNEY VARELA Procedure: US OB BPP w non-stress Biophysical profile. Reason for exam: Excessive growth COMPARISON: 12/14/2024 TECHNIQUE: Transabdominal imaging of the gravid uterus was obtained. FINDINGS: The hospital tray service worker reports a BPP of 8 out of 8. ZEB is normal at 17.2 cm. heart rate 158 bpm. US/US OB BPP w non-stress IMPRESSION: BPP 8 out of 8. Impression dictated by: Wayne Murray Jr., DIsrealOIsreal 01/18/2025 12:13 PM Dictation [facility] Electronically authenticated by: [id number] Y Date: 01/18/2025 12:13
--- OUTSIDE RECORDS SUMMARY | 2025-01-18 10:12 | XMS_ITS | Encounter Summary ---
Author Organization [facility] Address [address] [place] [address] Care Team Providers Care Smoke Jumper Supervisor Name Role Phone Taisha Ortiz MD Primary Care Provider [phone] Stephanie Sotelo IMMIGRATION ASSOCIATE Unavailable [phone] Encounter Details Date Type Department Care Team (Late st Contact Info) Description 12/30/2022 Clinisync Result Encounter NOMS External Department Unsolicited Kathie Roman PA [address] [place] [address] Social History Tobacco Use Types Packs/Day [...] MARIE [address] [place] [address] Kendra Smith NP [address] [facility] [place] [address] (work) documented as of this encounter Procedures Procedure Name Priority Date/Time Associated Diagnosis Comments US OB ANATOMY 12/30/2022 5:41 PM EDT documented in this encounter Results * US OB ANATOMY (12/30/2022 5:41 PM EDT) Anatomical Region Laterality Modality Other 12/30/2022 5:41 PM EDT Narrative 12/30/2022 5:41 PM EDT [address] [address] Ultrasound Report Signed Patient: HESHAM TAYLOR MR#: [id number] : 2000 Acct:[id number] Age/Sex: 22 / F ADM Date: 12/30/22 Loc: US Attending Dr: Kathie Roman Ordering Physician: Kathie Roman Date of Service: 12/30/22 Procedure(s): US OB anatomy Accession Number(s): [id number] cc: Kathie Roman; Physician,Non-Staff M.D. [address] [address] Patient Name: HESHAM TAYLOR MRN: [id number] date: 2000 Sex: F Assigned Patient Location: Current Patient Location: Accession/Order Number: [id number] Exam Date: 12/30/2022 07:55 Report Date: 12/30/2022 [...] M.D. Signed By: 12/30/221743 DD/ 40 TD/TT: Dye Machine Tender: Procedure Note Radiology, Radiologist, MD - 01/06/2023 The [place] [id number] Ultrasound Report Signed Patient: HESHAM TAYLOR AMR#: [id number] : 2000Acct:[id number] Age/Sex: 22 FADM Date: 12/30/22 Loc: US Attending Dr: Kathie Roman Ordering Physician: Kathie Roman Date of Service: 12/30/22 Procedure(s): US OB anatomy Accession Number(s): [id number] cc: Kathie Roman; Physician,Non-Staff Ann-Marie The [address] [address] Patient Name: HESHAM TAYLOR MRN: [id number] date: 2000 Sex: F Assigned Patient Location: US Current Patient Location: US Accession/Order Number: [id number] Exam Date: 12/30/2022 07:55 Report Date: 12/30/2022 [...] Souza M.D. Signed By:12/30/221743 DD/ 40 TD/TT: Dye Machine Tender: us Kathie COCHRAN [facility] Final Result documented in this encounter Visit Diagnoses Not on filedocumented in this encounter Care Teams Smoke Jumper Supervisor Relationship Specialty Start Date End Date Taisha Ortiz MD [address] [place] [address] PCP - General Family Medicine 05/03/23 Stephanie Sotelo NP [address] [place] [address] PCP - Carloz Eduardo 07/16/24 documented as of this encounter
--- OUTSIDE RECORDS SUMMARY | 2025-01-18 10:12 | XMS_ITS | Encounter Summary ---
Author Organization [facility] Address [address] [place] [address] Care Team Providers Care Marine Equipment Sales Engineer Name Role Phone Taisha Ortiz MD Primary Care Provider Stephanie Sotelo PRODUCT ENGINEERING MANAGER Unavailable [phone] Encounter Details Date Type Department Care Team (Late st Contact Info) Description 12/30/2022 Clinisync Result Encounter [facility] External Department Unsolicited Kathie Roman PA [address] [place] [address] Social History Tobacco Use Types Packs/Day [...] EDT Routine [facility] MARIE [address] [facility] [place] [address] Kendra Smith NP [address] [facility] [place] [place] [address] (work) documented as of this encounter Procedures Procedure Name Priority Date/Time Associated Diagnosis Comments US OB TRANSVAGINAL 12/30/2022 5: 41 PM EDT documented in this encounter Results * US OB TRANSVAGINAL (12/30/2022 5:41 PM EDT) Anatomical Region Laterality Modality Other 12/30/2022 5:41 PM EDT Narrative 12/30/2022 5:41 PM EDT [address] [address] Ultrasound Report Signed Patient: HESHAM TAYLOR MR#: [id number] : 2000 Acct:[id number] Age/Sex: 22 / F ADM Date: 12/30/22 Loc: US Attending Dr: Kathie Roman Ordering Physician: Kathie Roman Date of Service: 12/30/22 Procedure(s): US OB transvaginal Accession Number(s): [id number] cc: Kathie Roman; Physician,Non-Staff M.D. [address] [address] Patient Name: HESHAM TAYLOR MRN: [id number] date: 2000 Sex: F Assigned Patient Location: US Current Patient Location: US Accession/Order Number: [id number] Exam Date: 12/30/2022 07:55 Report Date: 12/30/2022 [...] M.D. Signed By: 12/30/221743 DD/ 40 TD/TT: Drywall Applicator: Procedure Note Radiology, Radiologist, - 01/06/[address] [address] Ultrasound Report Signed Patient: HESHAM TAYLOR AMR#: [id number] : 2000Acct:[id number] Age/Sex: 22 / FADM Date: 12/30/22 Loc: US Attending Dr: Kathie Roman Ordering Physician: Kathie Roman Date of Service: 12/30/22 Procedure(s): US OB transvaginal Accession Number(s): [id number] cc: Kathie Roman; Physician,Non-Staff Ann-Marie The [address] [address] Patient Name: HESHAM TAYLOR MRN: [id number] date: 2000 Sex: F Assigned Patient Location: US Current Patient Location: US Accession/Order Number: [id number] Exam Date: 12/30/2022 07:55 Report Date: 12/30/2022 [...] Souza M.D. Signed By:12/30/221743 DD/ 40 TD/TT: Drywall Applicator: us Kathie [facility] Final Result documented in this encounter Visit Diagnoses Not on filedocumented in this encounter Care Teams Marine Equipment Sales Engineer Relationship Specialty Start Date End Date Taisha Ortiz MD [address], [place] [id number] PCP - General Family Medicine 05/03/23 Stephanie Sotelo NP [address], [place] [id number] PCP - Carloz Eduardo 07/16/24 documented as of this encounter
[2025-01-18 10:38] VITALS: BP 112/59; PULSE 96
== END 2025-01-18 11:02 | disposition home or self-care (01) ==
LOC: US 10:08 → FBC 10:10
PROVIDERS: PCP Family Medicine; Visit Provider Nurse Practitioner Family
DX: O43.893 Other placental disorders, third trimester (principal); O36.63X0 Maternal care for excessive fetal growth, third trimester, not applicable or unspecified; Z87.59 Personal history of other complications of pregnancy, childbirth and the puerperium; Z3A.36 36 weeks gestation of pregnancy
CPT/HCPCS: 76818

== ENCOUNTER 2025-01-22 07:50 | Outpatient (OUT) | payer BC, SELFPAY ==
--- OUTSIDE RECORDS SUMMARY | 2025-01-14 09:00 | XMS_ITS | Encounter Summary ---
Author Organization [facility] Address [address] [place] [address] Care Team Providers Care Applied Computer Science Professor Name Role Phone Taisha Ortiz MD Primary Care Provider [phone] Stephanei Sotelo HOME WORKER Unavailable [phone] Encounter Details Date Type Department Care Team (Latest Contact Info) Description 01/14/2025 9:00 AM EDT Ancillary Procedure [facility] [address] [place] [address] [place] [address] Excessive growth affecting management of , antepartum, single or unspecified fetus ([facility]) Social History Tobacco Use Types [...] often do you attend chur ch or worship services? 1 to 4 times per year [...] 0 05/24/2023 [facility] - Occupational Stress Questionnaire [...] place to sleep or slept in a prison (including now)? No 05/17/2023 Estimated Date of [...] AM EDT Routine [facility] [address] [facility] [address] Kendra Smith, HASMUKH [address] [place] [address] documented as of this encounter Procedures Procedure Name Priority Date/Time Associated Diagnosis Comments US OB FOLLOW UP TRANSABDOMINAL APPROACH Routine 01/14/2025 9:27 AM EDT Excessive growth affecting management of , antepartum, single or unspecified fetus ([facility]) documented in this encounter Results * US [...] of , antepartum, single or unspecified fetus ([facility]) documented in this encounter Care Teams Applied Computer Science Professor Relationship Specialty Start Date End Date Taisha Ortiz MD [address] [place] [address] PCP - General Family Medicine 05/03/23 Stephanie Sotelo NP [address] [place] [address] PCP - Carloz Eduardo 07/16/24 documented as of this encounter
--- OUTSIDE RECORDS SUMMARY | 2025-01-14 09:20 | XMS_ITS | Encounter Summary ---
Author Organization [facility] Address [address] [place] [address] Care Team Providers Care Cold Rolling Machine Setter Name Role Phone Taisha Ortiz MD Primary Care Provider [phone] Stephanie Sotelo MANAGER WOMEN Unavailable [phone] Reason for Visit * Reason Comments Routine Visit Encounter Details Date Type Department Care Team (Late Contact Info) Description 01/14/2025 9:20 AM EDT Routine [facility] [address] [facility] [address] Kendra Smith, HASMUKH [address] [place] [address] Third trimester ([facility]); 36 weeks gestation of ([facility]); History of placental abnormality; Excessive growth affecting management of , antepartum, single or unspecified fetus ([facility]) Social History Tobacco Use Types Packs/Day Years [...] How often do you attend chur or moravian services? 1 to 4 times per year 05/17/2023 Do you belong to any clubs o r organizations such as anglican groups, unions, fraternal or athletic groups, or [...] Recorded Patient Health Questionnaire-2 Score 0 05/24/2023 [facility] [place] of Occupat ional Health - Occupational Stress [...] Sign Reading Time Taken Comments Blood Pressure 122/68 01/14/2025 9:32 AM EDT Pulse - - Temperature - - Respiratory Rate - - Oxygen Saturation - - Inhaled Oxygen Concentration - - Weight 104 kg (230 lb) 01/14/2025 9:32 AM EDT Height - - Body Mass Index 39.48 11/21/2023 2:10 PM EDT documented in this encounter Progress Notes * Kendra Smith NP - 01/14/2025 9:20 AM EDT Reason for Appointment: Patient ID: Shelby Avalos is a 24 y.o. female who presents for Routine Visit Patient presents today for Return OB appointment. MEDICATIONS Current Outpatient Medications Medication Instructions Ferrous Gluconate (IRON 27 PO) 1 each, Daily Rbnxolnv-Vqe-Wf-FA (PRE- PO) 1 each, Daily ALLERGIES No Known Allergies PROBLEMS Active Ambulatory Problems Diagnosis Date Noted History of placental abnormality 12/24/2024 Resolved Ambulatory Problems Diagnosis Date Noted Obesity affecting in second trimester ([facility]) 01/27/2023 Velamentous insertion of umbilical cord in second trimester ([facility]) 01/27/2023 Past Medical History: Diagnosis Date 6 weeks follow-up ([facility]) HISTORY PAST MEDICAL HISTORY SOCIAL HISTORY Past Medical History: Diagnosis Date 6 weeks follow-up ([facility]) Social History Tobacco Use Smoking status: Never [...] Objective: Physical Exam Constitutional: Appearance: Normal appearance. Genitourinary: Right Adnexa: not tender and no mass present. Left Adnexa: not tender and no mass present. No cervical discharge. Breasts: Breasts are soft. Right: Normal. Left: Normal. HENT: Head: Normocephalic. Nose: Nose normal. Mouth/Throat: Mouth: Mucous membranes are moist. Cardiovascular: Rate and Rhythm: Normal rate. Pulmonary: Effort: Pulmonary effort is normal. Abdominal: General: Bowel sounds are normal. Palpations: Abdomen is soft. Musculoskeletal: General: Normal range of motion. Cervical back: Normal range of motion. Neurological: General: No focal deficit present. Mental Status: She is alert. Skin: General: Skin is warm and dry. Psychiatric: Mood and Affect: Mood normal. Vitals and nursing note reviewed. Exam conducted with a sock turner present. Vitals: Estimated body mass index is 39.48 kg/m?? as calculated from the following: Height as of 24: 5' 4 . Weight as of this encounter: 230 lb. BP: 122/68 Patient's last menstrual period was 05/06/2024. ASSESSMENT & PLAN ICD-10-CM 1. Third trimester ([facility]) Z34.93 POCT urinalysis dipstick manually resulted CULTURE, GROUP B STREP WITH SUSCEPTIBLITY CULTURE, GROUP B STREP WITH SUSCEPTIBLITY 2. 36 weeks gestation of ([facility]) Z3A.36 Patient is doing well but has complaints of being tired and having maternal discomfort due to . Patient verbalized frequent movement and was instructed to perform kick counts three times per day. labor precautions were given, LARC consent was signed/declined, and GBS was obtained. Pt states she is having vaginal pressure off and on and not consistent. Orders Placed This Encounter Procedures CULTURE, GROUP B STREP WITH SUSCEPTIBLITY POCT urinalysis dipstick manually resulted Follow Up: Patient is to return to office in 1 week for routine OB appointment Patient with ultrasound completed today and Growth in the 97% measuring LGA will obtain BPP and NST starting this week. Documented by Donna Mcallister MA on behalf of: Kendra Smith NP documented in this encounter Plan of Treatment Upcoming Encounters Date Type Department Care Team (Late st Contact Info) Description 01/23/2025 10:20 AM EDT Rout[facility] [address] [place] [address] Kendra Smith NP [address] [place] [address] Scheduled Orders Name Type Priority Associated Diagnoses Orde r Schedule CULTURE, GROUP B STREP WITH SUSCEPTIBLITY Lab Routine Third trimester ([facility]) Expected: 01/14/2025 (Approximate), Expires: 01/14/2026 US biophysical profile w non stress test Imaging Routine Third trimester ([facility]) 36 weeks gestation of ([facility]) History of placental abnormality Excessive growth affecting management of , antepartum, single or unspecified fetus ([facility]) Expected: 01/14/2025 (Approximate), Expires: 07/14/2025 documented as of this encounter Procedures Procedure Name Priority Date/Time Associated Diagnosis Comments POCT URINALYSIS DIPSTICK Routine 01/14/2025 9:48 AM EDT Third trimester ([facility]) documented in this encounter Results * (ABNORMAL) POCT urinalysis dipstick manually resulted (01/14/2025 9:48 AM EDT) Color, UA Yellow Clarity, UA [...] Nitrite, UA Negative Negative - Positive Urine 01/14/2025 9:48 AM EDT Kendra Smith NP POINT OF CARE TEST ENTER/EDIT ORDERABLES Final Result documented in this encounter Visit Diagnoses Diagnosis Third trimester ([facility]) state, incidental 36 weeks gestation of ([facility]) History of placental abnormality Excessive growth affecting management of , antepartum, single or unspecified fetus ([facility]) documented in this encounter Care Teams Cold Rolling Machine Setter Relationship Specialty Start Date End Date Taisha Ortiz MD [address] [place] [address] PCP - General Family Medicine 05/03/23 Stephanie Sotelo NP [address] [place], [place] [id number] PCP - [place] [employer] 07/16/24 documented as of this encounter
--- OUTSIDE RECORDS SUMMARY | 2025-01-22 07:52 | XMS_ITS | Encounter Summary ---
Author Organization [facility] Address [address] [place] [address] Care Team Providers Care Stone Setter Apprentice Name Role Phone Taisha Ortiz MD Primary Care Provider [phone] Stephanie Sotelo ROBOTICS ENGINEER Unavailable [phone] Encounter Details Date Type Department Care Team (Late st Contact Info) Description 07/17/2024 Abstract [facility] [place] [facility] [address] [facility] [place] [address] Don Hidalgo DO [address] [facility] [place] [address] Social History Tobacco Use Types Packs/Day Years [...] Recorded Patient Health Questionnaire-2 Score 0 05/24/2023 [facility] of Occupat ional [facility] - Occupational Stress Questionnaire Answer [...] place to sleep or slept in a residential (including now)? No 05/17/2023 Estimated Date of [...] [address] [facility] [place] [address] Kendra Smith NP [address] [facility] [place] [address] documented as of this encounter Visit Diagnoses Not on filedocumented in this encounter Care Teams Stone Setter Apprentice Relationship Specialty Start Date End Date Taisha Ortiz MD [address] [place] [address] PCP - General Family Medicine 05/03/23 Stephanie Sotelo NP [address] [place] [id number] PCP - Carloz Eduardo 07/16/24 documented as of this encounter
--- OUTSIDE RECORDS SUMMARY | 2025-01-22 07:53 | XMS_ITS | Encounter Summary ---
Author Organization [facility] Address [address] [place] [address] Care Team Providers Care Lubricating Engineer Name Role Phone Taisha Ortiz MD Primary Care Provider [phone] Stephanie Sotelo CHEMICAL PROCESSING TECHNICIAN Unavailable [phone] Encounter Details Date Type Department Care Team (Late st Contact Info) Description 12/30/2022 Clinisync Result Encounter [facility] External Department Unsolicited Kathie Roman PA [address] [place] [address] Social History Tobacco Use Types Packs/Day [...] EDT Routine [facility] OBJEAN MARIE [address] [facility] [place] [address] Kendra Smith NP [address] [facility] [place] [address] (work) documented as of this encounter Procedures Procedure Name Priority Date/Time Associated Diagnosis Comments US OB ANATOMY 12/30/2022 5:41 PM EDT documented in this encounter Results * US OB ANATOMY (12/30/2022 5:41 PM EDT) Anatomical Region Laterality Modality Other 12/30/2022 5:41 PM EDT Narrative 12/30/2022 5:41 PM EDT [address] [address] Ultrasound Report Signed Patient: HESHAM TAYLOR MR#: [id number] : 2000 Acct:[id number] Age/Sex: 22 / F ADM Date: 12/30/22 Loc: US Attending Dr: Kathie Roman Ordering Physician: Kathie Roman Date of Service: 12/30/22 Procedure(s): US OB anatomy Accession Number(s): [id number] cc: Kathie Roman; Physician,Non-Staff M.D. [address] [address] Patient Name: HESHAM TAYLOR MRN: [id number] date: 2000 Sex: F Assigned Patient Location: Current Patient Location: Accession/Order Number: [id number] Exam Date: 12/30/2022 07:55 Report Date: 12/30/2022 [...] M.D. Signed By: 12/30/221743 DD/ 40 TD/TT: Biscuitware Brusher: Procedure Note Radiology, Radiologist, MD - 01/06/2023 The [place] [id number] Ultrasound Report Signed Patient: HESHAM TAYLOR AMR#: [id number] : 2000Acct:[id number] Age/Sex: 22 FADM Date: 12/30/22 Loc: US Attending Dr: Kathie Roman Ordering Physician: Kathie Roman Date of Service: 12/30/22 Procedure(s): US OB anatomy Accession Number(s): [id number] cc: Kathie Roman; Physician,Non-Staff Ann-Marie The [address] [address] Patient Name: HESHAM TAYLOR MRN: [id number] date: 2000 Sex: F Assigned Patient Location: US Current Patient Location: US Accession/Order Number: [id number] Exam Date: 12/30/2022 07:55 Report Date: 12/30/2022 [...] Souza M.D. Signed By:12/30/221743 DD/ 40 TD/TT: Biscuitware Brusher: us Kathie [facility] Final Result documented in this encounter Visit Diagnoses Not on filedocumented in this encounter Care Teams Lubricating Engineer Relationship Specialty Start Date End Date Taisha Ortiz MD [address] [place] [address] PCP - General Family Medicine 05/03/23 Stephanie Sotelo NP [address] [place] [address] PCP - Carloz Eduardo 07/16/24 documented as of this encounter
--- OUTSIDE RECORDS SUMMARY | 2025-01-22 07:53 | XMS_ITS | Encounter Summary ---
Author Organization [facility] Address [address] [place] [address] Care Team Providers Care Clinical Unit Coordinator Name Role Phone Taisha Ortiz MD Primary Care Provider [phone] Stephanie Sotelo TIRE BUILDING SUPERVISOR Unavailable [phone] Encounter Details Date Type Department Care Team (Late st Contact Info) Description 12/30/2022 Clinisync Result Encounter [facility] External Department Unsolicited Kathie Roman PA [address] [place] [address] Social History [...] EDT Routine [facility] [address] [place] [address] Kendra Smiht NP [address] [facility] [place] [address] (work) documented as of this encounter Procedures Procedure Name Priority Date/Time Associated Diagnosis Comments US OB TRANSVAGINAL 12/30/2022 5: 41 PM EDT documented in this encounter Results * US OB TRANSVAGINAL (12/30/2022 5:41 PM EDT) Anatomical Region Laterality Modality Other 12/30/2022 5:41 PM EDT Narrative 12/30/2022 5:41 PM EDT [address] [address] Ultrasound Report Signed Patient: HESHAM TAYLOR MR#: [id number] : 2000 Acct:[id number] Age/Sex: 22 / F ADM Date: 12/30/22 Loc: US Attending Dr: Kathie Roman Ordering Physician: Kathie Roman Date of Service: 12/30/22 Procedure(s): US OB transvaginal Accession Number(s): [id number] cc: Kathie Roman; Physician,Non-Staff M.D. [address] [address] Patient Name: HESHAM TAYLOR MRN: [id number] date: 2000 Sex: F Assigned Patient Location: US Current Patient Location: US Accession/Order Number: [id number] Exam Date: 12/30/2022 07:55 Report Date: 12/30/2022 [...] M.D. Signed By: 12/30/221743 DD/ 40 TD/TT: Manager Services: Procedure Note Radiology, Radiologist, - 01/06/[address] [address] Ultrasound Report Signed Patient: HESHAM TAYLOR AMR#: [id number] : 2000Acct:[id number] Age/Sex: 22 / FADM Date: 12/30/22 Loc: US Attending Dr: Kathie Roman Ordering Physician: Kathie Roman Date of Service: 12/30/22 Procedure(s): US OB transvaginal Accession Number(s): [id number] cc: Kathie Roman; Physician,Non-Staff Ann-Marie The [address] [address] Patient Name: HESHAM TAYLOR MRN: [id number] date: 2000 Sex: F Assigned Patient Location: US Current Patient Location: US Accession/Order Number: [id number] Exam Date: 12/30/2022 07:55 Report Date: 12/30/2022 [...] Souza M.D. Signed By:12/30/221743 DD/ 40 TD/TT: Manager Services: us Kathie [facility] Final Result documented in this encounter Visit Diagnoses Not on filedocumented in this encounter Care Teams Clinical Unit Coordinator Relationship Specialty Start Date End Date Taisha Ortiz MD [address] [place], [place] [phone] PCP - General Family Medicine 05/03/23 Stephanie Sotelo NP [address] [place], [place] [address] PCP - Carloz Eduardo 07/16/24 documented as of this encounter
--- OUTSIDE RECORDS SUMMARY | 2025-01-22 07:53 | XMS_ITS | Encounter Summary ---
Author Organization [facility] Address [address] [place] [address] Care Team Providers Care Tear Down Matcher Name Role Phone Taisha Ortiz MD Primary Care Provider [phone] Stephanie Sotelo PHYS THERAPIST Unavailable [phone] Encounter Details Date Type Department Care Team (Late st Contact Info) Description 09/23/2024 External Result Encounter [facility] [address] [facility] [place] [address] Rebeca Hidalgo DO [address] [facility] [address] [place], [place] [address] Social History Tobacco Use Types Packs/Day Years [...] often do you attend chur ch or yazidi services? 1 to 4 times per year [...] 0 05/24/2023 [facility] of Occupat ional [facility] - Occupational Stress Questionnaire Answer [...] place to sleep or slept in a long-term (including now)? No 05/17/2023 Estimated Date of [...] AM EDT Routine [facility] [address] [facility] [place] [address] Kendra Smith, HASMUKH [address] [place] [address] documented as [...] DAHL : 2000 SEX: F Accession Number: [id number] ORDERING PHYSICIAN: CINTIA BANEGAS REFERRING PHYSICIAN: REBECA HIDALGO Coding ----- --------- Procedures 15972: Ultrasound, uterus, real time with image documentation, and maternal evaluation plus detailed anatomic examination, transabdominal approach;single or first gestation 28388: Transvaginal Ultrasound (OB) Indication ----- --------- Screening [...] EFW (oz) 13 oz EFW by: Hadlock (LRO-NI-AD-FL) Extended Tibia 28.7 mm 20w 3d 71% Heri Customer Service Consultant 8.2 mm CM 5.6 mm 70% Nicolaides [...] Nose. Maxilla. Mandible. Orbits. Heart / Thorax 0-bxzntq-msautsl view. Aortic arch view. Interventricular septum. Great [...] 3.91 cm. Recommendations ----- --------- Please see [facility] documentation from today. Follow-up in 4-6 weeks is scheduled for completion of the anatomic survey Subsequent follow up or other follow up as clinically determined by primary OB provider unless otherwise specified by [facility]. Results forwarded to ordering provider so they can follow up with the patient as necessary. The copy-to physician of this order is REBECA King The ordering physician of this order is CINTIA Hartmann Procedure Note Radiology, Radiologist, - 09/23/2024 THIS EXAM WAS PERFORMED AT [facility] NAME: CLAUDIA DAHL : 2000 SEX: F Accession Number: [id number] ORDERING PHYSICIAN: CINTIA BANEGAS REFERRING PHYSICIAN: REBECA HIDALGO Coding ----- --------- Procedures 73232: Ultrasound, uterus, real time with imagedocumentation, and maternal evaluation plus detailed anatomic examination, transabdominalapproach;single or first gestation 99167: Transvaginal Ultrasound (OB) Indication ----- --------- Screening [...] EFW (oz) 13 oz EFW by: Hadlock (OEM-OR-YN-FL) Extended Tibia 28.7 mm 20w 3d 71% Heri Customer Service Consultant 8.2 mm CM 5.6 mm 70% Nicolaides [...] Nose. Maxilla. Mandible. Orbits. Heart / Thorax 3-wsorxs-kdntnsp view. Aortic arch view. Interventricularseptum. Great vessels. [...] 3.91 cm. Recommendations ----- --------- Please see [facility] documentation from today. Follow-up in 4-6 weeks isscheduled for completion of the anatomic survey Subsequent follow up or other follow up as clinically determined byprimary OB provider unless otherwise specified by [facility]. Results forwarded to ordering provider so they can follow up with thepatient as necessary. The copy-to physician of this order is REBECA King The ordering physician of this order is CINTIA Hartmann us Rebeca Hidalgo DO IMG OB US PROCEDURES Final Resul t documented in this encounter Visit Diagnoses Not on filedocumented in this encounter Care Teams Tear Down Matcher Relationship Specialty Start Date End Date Taisha Ortiz MD [address] [place], [place] [phone] PCP - General Family Medicine 05/03/23 Stephanie Sotelo NP [address] [place] [address] PCP - Carloz Eduardo 07/16/24 documented as of this encounter
--- OUTSIDE RECORDS SUMMARY | 2025-01-22 07:53 | XMS_ITS | Encounter Summary ---
Author Organization [facility] Address [address] [place] [address] Care Team Providers Care Disc Ruler Operator Name Role Phone Taisha rOtiz MD Primary Care Provider [phone] Stephanie Sotelo SFDC DEVELOPER Unavailable [phone] Encounter Details Date Type Department Care Team (Late Contact Info) Description 12/08/2022 Abstract [facility] [address] [place] [address] Kathie Lee PA [address] [place] [address] [place] [address] Social History Tobacco Use Types Packs/Day Years [...] EDT Routine [facility] JAVIER [address] [place] [address] Kendra Smith NP [address] [place] [address] documented as of this encounter Visit Diagnoses Not on filedocumented in this encounter Care Teams Disc Ruler Operator Relationship Specialty Start Date End Date Taisha Ortiz MD [address] [place] [address] PCP - General Family Medicine 05/03/23 Stephanie Sotelo NP [address] [place] [address] PCP - Carloz Eduardo 07/16/24 documented as of this encounter
--- OUTSIDE RECORDS SUMMARY | 2025-01-22 07:53 | XMS_ITS | Clinical Summary ---
Author Organization [facility] Address [address] [place] [address] Care Team Providers Care Custom Applicator Name Role Phone Taisha Pena MD Primary Care Provider Stephanie Sotelo REGISTERED RESPIRATORY TECHNICIAN Unavailable [phone] Allergies No known active allergies Medications Whoftioy-Ywf-Bz- FA (PRE- PO) Take 1 each by [...] Resolved Date Obesity affecting in second trimester ([facility]) 01/27/2023 04/25/2023 Velamentous insertion of umb ilical cord in second trimester ([facility]) 01/27/2023 04/25/2023 Encounters Date Type Department Care Team Description 01/18/2025 Clinisync Result Encounter NOMS External Department Unsolicited Kendra Smith NP 01/14/2025 9:20 AM EDT Routine [facility] T[facility] JAVIER [address] [place] [address] [place] [address] Kendra Smith NP Third trimester ([facility]); 36 weeks gestation of ([facility]); History of placental abnormality; Excessive growth affecting management of , antepartum, single or unspecified fetus ([facility]) 01/14/2025 9:00 AM EDT Ancillary Procedure [facility]AS[facility]N [address] [place] [id number] Excessive growth affecting management of , antepartum, single or unspecified fetus ([facility]) 01/14/2025 Clinisync Result Encounter NOMS External Department Unsolicited Provider, Generic External Data 01/06/2025 10:20 AM EDT Routine N[facility]S [place] [place] [address] Kathie Lee PA Third trimester ([facility]); 35 weeks gestation of ([facility]) 01/06/2025 Bamboo flowsheet NOMS Tj Martel [facility] [place] [address] Kathie Lee PA 12/24/2024 10:00 AM EDT Routine [place] [address] Rebeca Hidalgo DO Third trimester ([facility]); 33 weeks gestation of ([facility]); History of placental abnormality; Excessive growth affecting management of , antepartum, single or unspecified fetus ([facility]) 12/24/2024 Bamboo flowsheet [facility] [place] [address] Rebeca Hidalgo DO 12/14/2024 Clinisync Result Encounter NOMS External Department Unsolicited Provider, Generic External Data 12/12/2024 10:10 AM EDT Routine [place] [address] Kathie Lee PA Third trimester ([facility]); 31 weeks gestation of ([facility]) 12/12/2024 Bamboo flowsheet [facility] T[facility] JAVIER [address] [place] [address] Kathie Lee PA 11/28/2024 8:30 [place] [address] Rebeca Hidalgo DO Third trimester ([facility]); 29 weeks gestation of ([facility]); History of placental abnormality; Excessive growth affecting management of in third trimester, single or unspecified fetus ([facility]) 11/28/2024 [place] [address] Rebeca Hidalgo DO 11/16/2024 Clinisync Result Encounter NOMS External Department Unsolicited Provider, Generic External Data 11/14/2024 11:20 [place] [address] Kathie Lee PA Second trimester ([facility]); 27 weeks gestation of ([facility]) 11/14/2024 [place] [address] Kathie Lee PA 11/09/2024 Travel 10/28/2024 [place] [address] Rebeca Hidalgo DO from Last 3 Months [...] Recorded Patient Health Questionnaire-2 Score 0 05/24/2023 [facility] Occupat ional Health - [...] place to sleep or slept in a half-way (including now)? No 05/17/2023 Estimated Date of [...] [address] [facility] [place] [address] Kendra Smith, REGISTERED RESPIRATORY TECHNICIAN [address] [facility] [place] [address] Health Maintenance Due Date Last Done Comments Influenza Vaccine (#1) 2024 02/01/2021 Procedures Procedure Name Priority Date/Time Associated Diagnosis Comments US OB BPP W NON-STRESS 01/18/2025 12:13 PM EDT POCT URINALYSIS DIPSTICK Routine 01/14/2025 9:48 AM EDT Third trimester ([facility]) STREP GP B CULTURE+RFLX Routine 01/14/2025 9:33 AM EDT US OB FOLLOW UP TRANSABDOMINAL APPROACH Routine 01/14/2025 9:27 AM EDT Excessive growth affecting management of , antepartum, single or unspecified fetus ([facility]) POCT URINALYSIS DIPSTICK Routine 01/06/2025 10:42 AM EDT Third trimester ([facility]) POCT URINALYSIS DIPSTICK Routine 12/24/2024 10:13 AM EDT Third trimester ([facility]) US OB GROWTH 12/14/2024 11:17 AM EDT POCT URINALYSIS DIPSTICK Routine 12/12/2024 11:01 AM EDT Third trimester ([facility]) POCT URINALYSIS DIPSTICK Routine 11/28/2024 8:48 AM EDT Third trimester ([facility]) GLUCOSE 1 HOUR Routine 11/16/2024 10:06 AM EDT ALL CBC WITH AUTO DIFF Routine 10:06 AM EDT POCT URINALYSIS DIPSTICK Routine 11/14/2024 11:35 AM EDT Second trimester ([facility]) from Last 3 Months Results * US OB BPP W NON-STRESS (01/18/2025 12:13 PM EDT) Anatomical Region Laterality Modality Other 01/18/2025 12:1 3 PM EDT Narrative 01/18/2025 12:16 PM EDT The [address] [address] Ultrasound Report Signed Patient: HESHAM AVALOS MR#: [id number] : 2000 Acct:[id number] Age/Sex: 24 / F ADM Date: 01/18/25 Loc: US Attending Dr: Kendra Smith Ordering Physician: Kendra Smith Date of Service: 01/18/25 Procedure(s): US OB BPP w non-stress Accession Number(s): [id number] cc: Kendra Smith; TAISHA PENA The [place] [address] Patient Name: HESHAM AVALOS MRN: [id number]:[id number] date: 2000 Sex: F Assigned Patient Location: [facility] Current Patient Location: Accession/Order Number: [id number] Exam Date: 01/18/2025 10:14 Report Date: 01/18/2025 12:13 At the request of: KENDRA SMITH Procedure: US OB BPP w non-stress Biophysical profile. Reason for exam: Excessive growth COMPARISON: 12/14/2024 TECHNIQUE: Transabdominal imaging of the gravid uterus was obtained. FINDINGS: The plow shaker reports a BPP of 8 out of 8. ZEB is normal at 17.2 cm. heart rate 158 bpm. US/US OB BPP w non-stress IMPRESSION: BPP 8 out of 8. Impression dictated by: Wayne Murray Jr., D.O. 01/18/2025 12:13 PM Dictation Location: [place] [address] Electronically authenticated by: [id number] Y Date: 01/18/2025 12:13 Dictated By: Wayne Murray M.D. Signed By: 01/18/25 1216 DD/ 1213 TD/TT: Accounting Advisory Services Manager: Procedure Note Radiology, Radiologist, - 01/18/2025 [place] [address] Ultrasound Report Signed Patient: HESHAM AVALOS AMR#: [id number] : 2000Acct:[id number] Age/Sex: 24 / FADM Date: 01/18/25 Loc: US Attending Dr: Kendra Smith Ordering Physician: Kendra Smith Date of Service: 01/18/25 Procedure(s): US OB BPP w non-stress Accession Number(s): [id number] cc: Kendra Smith; TAISHA PENA [place] [id number] Patient Name: HESHAM AVALOS MRN: [facility]:[id number] date: 2000 Sex: F Assigned Patient Location: [facility] Current Patient Location: Accession/Order Number: [id number] Exam Date: 01/18/2025 10:14 Report Date: 01/18/2025 12:13 At the request of: KENDRA SMITH Procedure: US OB BPP w non-stress Biophysical profile. Reason for exam: Excessive growth COMPARISON: 12/14/2024 TECHNIQUE: Transabdominal imaging of the gravid uterus was obtained. FINDINGS: The plow shaker reports a BPP of 8 out of 8. ZBE is normal at17.2 cm. heart rate 158 bpm. US/US OB BPP w non-stress IMPRESSION: BPP 8 out of 8. Impression dictated by: Wayne Murray Jr., D.O. 01/18/2025 12:13 PM Dictation Location: [place] [address] Electronically authenticated by: [id number] Y Date: 2:13 Dictated By: Wayne Murray M.D. Signed By:01/18/25 1216 DD/ 1213 TD/TT: Accounting Advisory Services Manager: us Kendra Smith REGISTERED RESPIRATORY TECHNICIAN [facility] IMAGING Final Resul t * (ABNORMAL) POCT urinalysis [...] CARE TEST ENTER/EDIT ORDERABLES Final Result * STREP GP B CULTURE+RFLX (01/14/2025 9:33 AM EDT) Pathologist [facility] STREP GP B CULTURE+RFLX Strep Gp B Culture+Rflx TBH STREP GP B CULTURE+RFLX Negative TBH STREP GP B CULTURE+RFLX Centers for Disease Control and Prevention (CDC) and [facility] STREP GP B CULTURE+RFLX [employer] TBH STREP GP B CULTURE+RFLX (ACOG) guidelines for prevention of group B [facility] STREP GP B CULTURE+RFLX streptococcal (GBS) disease specify co-collection of [facility] STREP GP B CULTURE+RFLX a vaginal and rectal swab specimen to maximize TBH STREP GP B CULTURE+RFLX sensitivity of GBS detection. Per the CDC and ACOG, TBH STREP GP B CULTURE+RFLX swabbing both the lower vagina and rectum TBH STREP GP B CULTURE+RFLX substantially increases the yield of detection TBH STREP GP B CULTURE+RFLX compared with sampling the vagina alone. [facility] STREP GP B CULTURE+RFLX Penicillin G, ampicillin, or cefazolin are indicated TBH STREP GP B CULTURE+RFLX for intrapartum prophylaxis of GBS TBH STREP GP B CULTURE+RFLX colonization. Reflex susceptibility testing should be TBH STREP GP B CULTURE+RFLX performed prior to use of clindamycin only on GBS TBH STREP GP B CULTURE+RFLX isolates from penicillin-allergi c women who are [facility] STREP GP B CULTURE+RFLX considered a high risk for anaphylaxis. Treatment with [facility] STREP GP B CULTURE+RFLX vancomycin without additional testing is warranted if [facility] STREP GP B CULTURE+RFLX resistance to clindamycin is noted. TBH STREP GP B CULTURE+RFLX Performed at: [facility] TBH STREP GP B CULTURE+RFLX [address] [place], [place] [id number] TBH STREP GP B CULTURE+RFLX Women'S Basketball Coach: Andrade Curry PhD, Phone: [phone] [facility] 01/14/2025 9:33 AM EDT 01/15/2025 6:37 AM EDT Narrative [facility]IN[facility] - 01/19/2025 6:07 PM EDT us Generic External Data Provider LAB BLOOD ORDERAB LES Final Result [facility] * US OB follow up transabdominal approach [...] EDT Narrative 12/14/2024 11:19 AM EDT The [address] [address] Ultrasound Report Signed Patient: HESHAM AVALOS MR#: [id number] : 2000 Acct:[id number] Age/Sex: 24 / F ADM Date: 12/14/24 Loc: US Attending Dr: Rebeca Hidalgo D.O. Ordering Physician: Rebeca Hidalgo D.O. Date of Service: 12/14/24 Procedure(s): US OB growth Accession Number(s): [id number] cc: Rebeca Hidalgo D.O.; TAISHA PENA [place] [id number] Patient Name: HESHAM AVALOS MRN: [id number]:[id number] date: 2000 Sex: F Assigned Patient Location: US Current Patient Location: Accession/Order Number: [id number] Exam Date: 12/14/2024 09:50 Report Date: 12/14/2024 [...] Atkinson M.D. 12/14/2024 11:17 AM Dictation Location: [place] [address] Electronically authenticated by: [id number] Y Date: 12/14/2024 11:17 Dictated By: Wilfrido Atkinson M.D. Signed By: 12/14/24 1119 DD/ 1117 TD/TT: Accounting Advisory Services Manager: Procedure Note Radiology, Radiologist, MD - 12/14/2024 [place] [address] Ultrasound Report Signed Patient: HESHAM AVALOS AMR#: [id number] : 2000Acct:[id number] Age/Sex: 24 / FADM Date: 12/14/24 Loc: US Attending Dr: Rebeca Hidalgo D.O. Ordering Physician: Rebeca Hidalgo D.O. Date of Service: 12/14/24 Procedure(s): US OB growth Accession Number(s): [id number] cc: Rebeca Hidalgo D.O.; TAISHA PENA The [place] [id number] Patient Name: HESHAM AVALOS MRN: [id number]:[id number] date: 2000 Sex: F Assigned Patient Location: US Current Patient Location: US Accession/Order Number: [id number] Exam Date: 12/14/2024 09:50 Report Date: 12/14/2024 [...] Atkinson M.D. 12/14/2024 11:17 AM Dictation Location: [employer] Electronically authenticated by: [id number] Y Date: :17 Dictated By: Wilfrido Atkinson M.D. Signed By:12/14/24 1119 DD/ 1117 TD/TT: Accounting Advisory Services Manager: us Generic External Data Provider [facility] IMAG[facility] Final Result * GLUCOSE 1 HOUR (11/16/2024 10:06 AM EDT) Pathologist [facility] GLUCOSE 1 HOUR 120 <130 mg/dL TB 11/16/2024 10:0 6 AM EDT 11/16/2024 10:07 AM EDT Narrative [facility] - 11/16/2024 10:45 AM EDT us Rebeca Rocky DO LAB BLOOD ORDERABLES Final Resul t * (ABNORMAL) ALL CBC WITH AUTO DIFF (11/16/2024 10:06 AM EDT) TBH WBC 9.0 4.0 - 11.0 10 3/uL TBH TB RBC 3.43(L) 4.20 - 5.40 10 6/uL TBH TB HGB 10.6(L) 12.0 - 16.0 g/dL TB TB HCT 32.3(L) 36.0 - 48.0 % TBH TB MCV 94.2 81.0 - 99.0 fL TBH TBH MCH 30.9 26.7 - 34.0 pg TBH TBH MCHC 32.8 29.9 - 35.2 g/dL TB TB RDW 13.7 11.0 - 15.0 % TBH TBH PLT 183 150 - 450 10 3/uL TBH TB MPV 10.1 9.5 - 13.5 fL TBH [...] Rebeca Hidalgo DO CLIN[facility] Final Result [facility] TB from Last 3 Months Insurance [facility] Care Teams Custom Applicator Relationship Specialty Start Date End Date Taisha Pena MD [address] [place], [place] [address] PCP - General Family Medicine 05/03/23 Stephanie Sotelo NP [address] [place] [address] PCP - Carloz Eduardo 07/16/24
--- OUTSIDE RECORDS SUMMARY | 2025-01-22 07:53 | XMS_ITS | Encounter Summary ---
Author Organization [facility] Address [address] [place] [address] Care Team Providers Care Associate Director Qa Name Role Phone Taisha Ortiz MD Primary Care Provider [phone] Stephanie Sotelo INSURANCE APPLICATION INVESTIGATOR Unavailable [phone] Encounter Details Date Type Department Care Team (Late st Contact Info) Description 09/24/2024 Abstract [facility]a [place] OBGYNikole [address] [place] [address] [place] [address] [place], [place] Social History Tobacco Use Types Packs/Day [...] Recorded Patient Health Questionnaire-2 Score 0 05/24/2023 [facility] - Occupational Stress [...] AM EDT Routine NOMS Tj JAVIER [address] [facility] [place] [address] Kendra Smith NP [address] [facility] [place] [address] documented as of this encounter Visit Diagnoses Not on filedocumented in this encounter Care Teams Associate Director Qa Relationship Specialty Start Date End Date Taisha Ortiz MD [address] [place] [address] PCP - General Family Medicine 05/03/23 Stephanie Sotelo NP [address] [place] [address] PCP - [place] [employer] 07/16/24 documented as of this encounter
--- OUTSIDE RECORDS SUMMARY | 2025-01-22 07:53 | XMS_ITS | Encounter Summary ---
Author Organization [facility] Address [address] [place] [address] Care Team Providers Care Obstetrics/Gynecology Nurse Name Role Phone Dayana Pena MD Primary Care Provider [phone] Stephanie Sotelo PLANT MAINTENANCE WORKER Unavailable [phone] Encounter Details Date Type Department Care Team (Late st Contact Info) Description 01/18/2025 Clinisync Result Encounter NOMS External Department Unsolicited Britney Smith, HASMUKH [address] [facility] [place] [address] Social History Tobacco Use Types Packs/Day Years [...] often do you attend chur ch or taoist services? 1 to 4 times [...] 05/24/2023 [facility] of Occupat ional Health - [...] Routine [facility] OBGYN [address] [facility] [place] [address] Britney Smith, HASMUKH [address] [facility] [place] [address] documented as of this encounter Procedures Procedure Name Priority Date/Time Associated Diagnosis Comments US OB BPP W NON-STRESS 01/18/2025 12:13 PM EDT documented in this encounter Results * US OB BPP W NON-STRESS (01/18/2025 12:13 PM EDT) Anatomical Region Laterality Modality Other 01/18/2025 12:1 3 PM EDT Narrative 01/18/2025 12:16 PM EDT The [place] [id number] Ultrasound Report Signed Patient: HESHAM TAYLOR MR#: [id number] : 2000 Acct:[id number] Age/Sex: 24 / F ADM Date: 01/18/25 Loc: US Attending Dr: Britney Smith Ordering Physician: Britney Smith Date of Service: 01/18/25 Procedure(s): US OB BPP w non-stress Accession Number(s): [id number] cc: Britney Smith; DAYANA PENA The [place] [id number] Patient Name: HESHAM TAYLOR MRN: [facility]:[id number] date: 2000 Sex: F Assigned Patient Location: [facility] Current Patient Location: Accession/Order Number: [id number] Exam Date: 01/18/2025 10:14 Report Date: 01/18/2025 12:13 At the request of: BRITNEY SMITH Procedure: US OB BPP w non-stress Biophysical profile. Reason for exam: Excessive growth COMPARISON: 12/14/2024 TECHNIQUE: Transabdominal imaging of the gravid uterus was obtained. FINDINGS: The scutcher tender reports a BPP of 8 out of 8. ZEB is normal at 17.2 cm. heart rate 158 bpm. US/US OB BPP w non-stress IMPRESSION: BPP 8 out of 8. Impression dictated by: Wayne Murray Jr., D.O. 01/18/2025 12:13 PM Dictation Location: [facility] Electronically authenticated by: [id number] Y Date: 01/18/2025 12:13 Dictated By: Wayne Murray M.D. Signed By: 01/18/25 1216 DD/ 121 TD/TT: Evp: Procedure Note Radiology, Radiologist, MD - 01/18/2025 [place] [address] Ultrasound Report Signed Patient: HESHAM TAYLOR AMR#: [id number] : 2000Acct:[id number] Age/Sex: 24 / FADM Date: 01/18/25 Loc: US Attending Dr: Britney Smith Ordering Physician: Britney Smith Date of Service: 01/18/25 Procedure(s): US OB BPP w non-stress Accession Number(s): [id number] cc: Britney Smith; DAYANA PENA The [place] [address] Patient Name: HESHAM TAYLOR MRN: [id number]:[id number] date: 2000 Sex: F Assigned Patient Location: [facility] Current Patient Location: Accession/Order Number: [id number] Exam Date: 01/18/2025 10:14 Report Date: 01/18/2025 12:13 At the request of: BRITNEY SMITH Procedure: US OB BPP w non-stress Biophysical profile. Reason for exam: Excessive growth COMPARISON: 12/14/2024 TECHNIQUE: Transabdominal imaging of the gravid uterus was obtained. FINDINGS: The scutcher tender reports a BPP of 8 out of 8. ZEB is normal at17.2 cm. heart rate 158 bpm. US/US OB BPP w non-stress IMPRESSION: BPP 8 out of 8. Impression dictated by: Wayne Murray Jr., D.O. 01/18/2025 12:13 PM Dictation Location: [facility] Electronically authenticated by: [id number] Y Date: 2:13 Dictated By: Wayne Murray M.D. Signed By:01/18/25 1216 DD/ 121 TD/TT: Evp: us Britney Smith PLANT MAINTENANCE WORKER [facility] IMAGING Final Resul t documented in this encounter Visit Diagnoses Not on filedocumented in this encounter Care Teams Obstetrics/Gynecology Nurse Relationship Specialty Start Date End Date Dayana Pena MD [address] [place], [place] [address] PCP - General Family Medicine 05/03/23 Stephanie Sotelo NP [address] [place], [place] [address] PCP - Carloz Eduardo 07/16/24 documented as of this encounter
--- OUTSIDE RECORDS SUMMARY | 2025-01-22 07:53 | XMS_ITS | Encounter Summary ---
Author Organization [facility] Address [address] [place] [address] Care Team Providers Care Change Control Specialist Name Role Phone Taisha Ortiz MD Primary Care Provider [phone] Stephanie Sotelo PAINT POURER Unavailable [phone] Encounter Details Date Type Department Care Team (Late st Contact Info) Description 10/28/2024 Abstract [facility] [place] OBGYN [address] [facility] [place] [address] Don Hidalgo DO [address] [facility] [place] [address] Social History Tobacco Use Types Packs/Day Years [...] Recorded Patient Health Questionnaire-2 Score 0 05/24/2023 [facility] of Occupat ional [facility] - Occupational Stress Questionnaire Answer Date Recorded [...] AM EDT Routine NOMS Tj JAVIER [address] [facility] [place] [place] [address] Kendra Smith NP [address] [facility] [place] [address] documented as of this encounter Visit Diagnoses Not on filedocumented in this encounter Care Teams Change Control Specialist Relationship Specialty Start Date End Date Taisha Ortiz MD [address] [place] [address] PCP - General Family Medicine 05/03/23 Stephanie Sotelo NP [address] [place] [phone] PCP - Carloz Eduardo 07/16/24 documented as of this encounter
--- OUTSIDE RECORDS SUMMARY | 2025-01-22 07:53 | XMS_ITS | Encounter Summary ---
Author Organization [facility] Address [address] [place] [address] Care Team Providers Care Supervisor Reactor Fueling Name Role Phone Taisha Ortiz MD Primary Care Provider [phone] Stephanie Sotelo YOLK SPRAY DRIER Unavailable [phone] Encounter Details Date Type Department Care Team (Late st Contact Info) Description 01/14/2025 Clinisync Result Encounter NOMS External Department [...] often do you attend chur ch or taoism services? 1 to 4 times per year [...] Recorded Patient Health Questionnaire-2 Score 0 05/24/2023 [facility] of Occupat ional Health - Occupational Stress [...] [facility]S T[facility] OBGYN [address] [facility] [place] [address] Kendra Smith NP [address] [facility] [place] [address] documented as of this encounter Procedures Procedure Name Priority Date/Time Associated Diagnosis Comments STREP GP B CULTURE+RFLX Routine 01/14/2025 9:33 AM EDT documented in this encounter Results * STREP GP B CULTURE+RFLX (01/14/2025 9:33 AM EDT) STREP GP B CULTURE+RFLX Strep Gp B Culture+Rflx TBH STREP GP B CULTURE+RFLX Negative TBH STREP GP B CULTURE+RFLX Centers for Disease Control and Prevention (CDC) and TBH STREP GP B CULTURE+RFLX [employer] TBH STREP [...] TBH STREP GP B CULTURE+RFLX [facility]formed [facility] TBH STREP GP B CULTURE+RFLX [address] [place], [place] [id number] TBH STREP GP B CULTURE+RFLX Glass Bead Maker: Andrade Curry PhD, Phone: [phone] [facility] 01/14/2025 9:33 AM EDT 01/15/2025 6:37 AM EDT Narrative [facility] - 01/19/2025 6:07 PM EDT us Generic External Data Provider LAB BLOOD ORDERAB LES Final [facility] documented in this encounter Visit Diagnoses Not on filedocumented in this encounter Care Teams Supervisor Reactor Fueling Relationship Specialty Start Date End Date Taisha Ortiz MD [address] [place] [address] PCP - General Family Medicine 05/03/23 Stephanie Sotelo NP [address] [place] [address] PCP - Carloz Eduardo 07/16/24 documented as of this encounter
--- OUTSIDE RECORDS SUMMARY | 2025-01-22 07:53 | XMS_ITS | Encounter Summary ---
Author Organization [facility] Address [address] [place] [address] Care Team Providers Care Mixer Pigment Name Role Phone Taisha Ortiz MD Primary Care Provider Stephanie Sotelo BROADCAST MAINTENANCE ENGINEER Unavailable [phone] Encounter Details Date Type Department Care Team (Late st Contact Info) Description 07/23/2024 Abstract [facility] [place] OBG[facility] [address] [facility] [place] [address] Don Hidalgo DO [address] [facility] [place] [address] Social History Tobacco Use Types Packs/Day Years [...] Questionnaire-2 Score 0 05/24/2023 [facility] of Occupat ional [facility] - Occupational Stress Questionnaire Answer [...] [address] [facility] [place] [address] Kendra Smith NP [address] [facility] [place] [address] documented as of this encounter Visit Diagnoses Not on filedocumented in this encounter Care Teams Mixer Pigment Relationship Specialty Start Date End Date Taisha Ortiz MD [address] [place] [address] PCP - General Family Medicine 05/03/23 Stephanie Sotelo NP [address] [place] [id number] PCP - Carloz Eduardo 07/16/24 documented as of this encounter
--- OUTSIDE RECORDS SUMMARY | 2025-01-22 07:53 | XMS_ITS | Clinical Summary ---
Author Organization [facility] Address [id number] 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 A ctive ferrous sulfate (HIGH POTENCY IRON) 27 mg iron tablet Take by mouth. Activ e [id number]-an lic-om3 (DUET DHA WITH OMEGA-3) 25 mg [...] often do you attend chur ch or [facility]aritan services? Never 01/31/2021 Do you belong to [...] Answer Date Recorded Total Score 6 01/31/2021 [facility] [...] Recorded Do you need help finding a steward health care system career center and/or a training program? 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 RVOT view. LVOT view. 3-vessel view. 2-tkrnpk-ggqdbuj view. Situs. Aortic arch view. Bicaval view. [...] DAHL : 2000 SEX: F Accession Number: [id number] ORDERING PHYSICIAN: CINTIA BANEGAS REFERRING PHYSICIAN: REBECA PACE Coding ----- --------- Procedures [id number]: Follow-up Ultrasound, per fetus Indication ----- --------- [...] EFW (oz) 15 oz EFW by: Hadlock ([id number]-FL) Extended Tibia 40.1 mm 25w 2d 74% Heri Mud Analysis Well Logging Operator 4.7 mm CM 7.6 mm 89% Nicolaides [...] 4-chamber view. RVOT view. LVOT view. 3-vessel view.1-bdjvco-zhyxwlh view. Situs. Aortic arch view. Bicaval view. [...] thepatient as necessary. us Cintia Banegas MD [facility] [place] ORDERABLES Final Resul t * Chlamydia/GC by PCR Elisabeth Swab (11/09/2022) Chlamydia Dna(Pcr) negative MANUALLY TRANSCRIBED RESULTS Gonorrhoeae Dna(Pcr) negative MANUALLY TRANSCRIBED RESULTS us Not In System Ref Prov MICROBIOLOGY - GENERAL OR DERABLES Final Result MANUALLY TRANSCRIBED RESULTS from Last 3 Months or Most Recently Relevant to Health Maintenance Insurance ANTH
[2025-01-22 07:56] VITALS: BP 123/69; PULSE 101
--- OUTSIDE RECORDS SUMMARY | 2025-01-22 07:57 | XMS_ITS | CCD ---
Author Organization [facility] Care Team Providers Care Sales Order Clerk Name Role Phone DR DON HIDALGO Admitting [...] Unavailable ROCKY, Don R Referring Unavailable Ashleigh BREAK OUT WORKER, Stephanie Villagran Unavailable ROCKY, DON R Referring Unavailable ROCKY, DON Attending Unavailable ROCKY, DON Attending Unavailable JESUS, KATHIE Attending Unavailable ROCKY, DON Attending Unavailable JESUS, KATHIE Attending Unavailable ROCKY, DON Attending Unavailable JESUS, KATHIE Attending Unavailable ROCKY, DON Attending Unavailable JESUS, KATHIE Attending Unavailable ROCKY, DON Referring Unavailable BRITNEY SMITH Attending Unavailable Medications Current Medications Medication Drug [...] procedure, # 2 cap(s), Refills(s) 0, Pharmacy: [facility] [id number], 163, cm, 08/05/24 13:19:00 EDT, Height/Length Dosing, [...] mg iron tablet Take by mouth. Active Grrblv-TrYbco-Kzobb-FA-Mitchell 3 (Duet DHA 400) 25-1 & 400 MG misc (2 sources) Rellgb-BwRbsv-Cg xko-MM-Uyemy 3 (Duet DHA 400) 25-1 & 400 MG misc Take by mouth. 0 Active Mdxrotrf-Tfb-Qh-FA (PRE- PO) (20 sources) take 1 dose by mouth once daily Vsaaalhf-Hvc-Mq-FA (PRE-SIGIFREDO PO) Take 1 each by mouth Daily Active Multivitamins (1 source) Start : 07-31 take 1 tablet by mouth once daily Multivitamins 1 tab(s), Oral, Daily, Refill(s) 0 Start Date: 07/31/24 Status: Ordered Repeat number: 1 hid135-oxnm-oures-y m3 (DUET DHA WITH OMEGA-3) 25 mg iron-1 mg -400 mg combo pack (4 sources) ecv628- zqoi-eylaf-sb2 (DUET DHA WITH OMEGA-3) 25 mg iron-1 mg -400 mg combo pack Take by mouth. Active kpi431- sywf-zoadp-hk4 (DUET DHA WITH OMEGA-3) 25 mg iron-1 mg -400 mg combo pack Take by mouth. 0 Active kcv754-caqd-kiqbo-i m3 25 mg iron-1 mg -400 mg combo pack (4 sources) jdm887- strf-hqkum-vs0 25 mg iron-1 mg -400 mg combo pack Take by mouth. Active pxf742- eupi-xngac-mx4 25 mg iron-1 mg -400 mg combo [...] of ] 07-23-2024 Episodic Residual codes; unclassified (16 sources) H/O: Disorder; Translations: [Personal history of [...] Test Name Value Interpretation Reference Range Facility STREP GP B CULTURE+RFLXon STREP GP B CULTURE+RFLX Strep Gp B Culture+Rflx [facility] STREP GP B CULTURE+RFLX Negative [facility] STREP GP B CULTURE+RFLX Centers for Disease Control and Prevention (CDC) and [facility] STREP GP B CULTURE+RFLX [place] [employer] [facility] STREP GP B CULTURE+RFLX (ACOG) guidelines for prevention of group B [facility] STREP GP B CULTURE+RFLX streptococcal (GBS) disease specify co-collection of [facility] STREP GP B CULTURE+RFLX a vaginal and rectal swab specimen to maximize [facility] STREP GP B CULTURE+RFLX sensitivity of GBS detection. Per the CDC and ACOG, [facility] STREP GP B CULTURE+RFLX swabbing both the lower vagina and rectum [facility] STREP GP B CULTURE+RFLX substantially increases the yield of detection [facility] STREP GP B CULTURE+RFLX compared with sampling the vagina alone. [facility] STREP GP B CULTURE+RFLX Penicillin G, ampicillin, or cefazolin are indicated [facility] STREP GP B CULTURE+RFLX for intrapartum prophylaxis of GBS [facility] STREP GP B CULTURE+RFLX colonization. Reflex susceptibility testing should be [facility] STREP GP B CULTURE+RFLX performed prior to use of clindamycin only on GBS [facility] STREP GP B CULTURE+RFLX isolates from penicillin-allergic women who are [facility] STREP GP B CULTURE+RFLX considered a high risk for anaphylaxis. Treatment with [facility] STREP GP B CULTURE+RFLX vancomycin without additional testing is warranted if [facility] STREP GP B CULTURE+RFLX resistance to clindamycin is noted. [facility] STREP GP B CULTURE+RFLX Performed at: [facility] STREP GP B CULTURE+RFLX [address], [place] [id number] [facility] STREP GP B CULTURE+RFLX Educational Assistant Teacher: Andrade Curry PhD, Phone: [phone] [facility] US OB BPP W NON-STRESS on 01-18-2025 [place] [address] Ultrasound Report Signed Patient: HESHAM AVALOS MR#: [id number] : 2000 Acct:[id number] Age/Sex: 24 / F ADM Date: 01/18/25 Loc: US Attending Dr: Britney Smith Ordering Physician: Britney Smith Date of Service: 01/18/25 Procedure(s): US OB BPP w non-stress Accession Number(s): [id number] cc: Britney Smith; TAISHA PENA [place] [address] Patient Name: HESHAM AVALOS MRN: [facility]:[id number] date: 2000 Sex: F Assigned Patient Location: [facility] Current Patient Location: Accession/Order Number: [id number] Exam Date: 01/18/2025 10:14 Report Date: 01/18/2025 12:13 At the request of: BRITNEY SMITH Procedure: US OB BPP w non-stress Biophysical profile. Reason for exam: Excessive growth COMPARISON: 12/14/2024 TECHNIQUE: Transabdominal imaging of the gravid uterus was obtained. FINDINGS: The gardener florist reports a BPP of 8 out of 8. ZEB is normal at 17.2 cm. heart rate 158 bpm. US/US OB BPP w non-stress IMPRESSION: BPP 8 out of 8. Impression dictated by: Wayne Murray Jr., D.O. 01/18/2025 12:13 PM Dictation Location: [place] [address] Electronically authenticated by: [id number] Y Date: 01/18/2025 12:13 Dictated By: Wayne Murray M.D. Signed By: 01/18/25 1216 DD/ 1213 TD/TT: Freight Loader: [facility] Radiology, Radiologist, MD - 01/18/2025 [place] [address] Ultrasound Report Signed Patient: HESHAM AVALOS MR#: [id number] : 2000 Acct:[id number] Age/Sex: 24 / F ADM Date: 01/18/25 Loc: US Attending Dr: Britney Smith Ordering Physician: Britney Smith Date of Service: 01/18/25 Procedure(s): US OB BPP w non-stress Accession Number(s): [id number] cc: Britney Smith; TAISHA PENA [place] [id number] Patient Name: HESHAM AVALOS MRN: [facility]:[id number] date: 2000 Sex: F Assigned Patient Location: [facility] Current Patient Location: Accession/Order Number: [id number] Exam Date: 01/18/2025 10:14 Report Date: 01/18/2025 12:13 At the request of: BRITNEY SMITH Procedure: US OB BPP w non-stress Biophysical profile. Reason for exam: Excessive growth COMPARISON: 12/14/2024 TECHNIQUE: Transabdominal imaging of the gravid uterus was obtained. FINDINGS: The gardener florist reports a BPP of 8 out of 8. ZEB is normal at 17.2 cm. heart rate 158 bpm. US/US OB BPP w non-stress IMPRESSION: BPP 8 out of 8. Impression dictated by: Wayne Murray Jr., D.O. 01/18/2025 12:13 PM [facility] Electronically authenticated by: [id number] Y Date: 01/18/2025 12:13 Dictated By: Wayne Murray M.D. Signed By: 01/18/25 1216 DD/ 121 TD/TT: Freight Loader: [facility] Radiology Study observation (narrative) [facility] US OB BPP W NON-STRESS Ordered By: Radiologist Radiology on 01-18-2025 [facility] Work Phone: US OB FOLLOW UP TRANSABDOMIN AL APPROACHon 01-14-2025 US OB FOLLOW UP TRANSABDOMINAL APPROACH FINDINGS: Comparison July 05, 2024. A single, [...] BY: ELECTRONICALLY SIGNED BY: Wayne Alarcon MD Normal Not Available Comment on above: Order Comment: US OB SCAN FOR GROWTH Estimated Date of Delivery: 02/10/25 Gestational Age as of 12/24/2024: 33w1d Urinalysis macro (dipstick) panel (U)on 01-14-2025 Bilirubin, UA Negative Negative - 4(70) +++ mg/dL [facility] Blood, UA Negative Negative - 50 Eulogio/mcL [facility] Clarity, UA Clear [facility] Color, UA Yellow [facility] Glucose, UA Negative Negative - 1999(110) ++++ mg/dL [facility] Interpretation and review of laboratory results Abnormal [facility] Ketones, UA Negative Negative - 160(16) ++++ mg/dL [facility] Leukocytes, UA Negative Negative - 500+++ Rufina/mcL [facility] Nitrite, UA Negative Negative - Positive [facility] pH, UA 6 5 - 9 [facility] Protein, UA 1+ Negative - 1999(20) ++++ mg/dL [facility] Spec Grav, UA 1.02 1 - 1.03 [facility] Urobilinogen, UA 1.0 0.2 - 12 mg/dL [facility] Urinalysis macro (dipstick) panel (U)on 01-06-2025 Bilirubin, UA Positive Negative - 4(70) +++ mg/dL [facility] Comment on above: 1+ Blood, UA Negative Negative - 50 Eulogio/mcL [facility] Clarity, UA Clear [facility] Color, UA Yellow [facility] Glucose, UA Negative Negative - 1999(110) ++++ mg/dL [facility] Interpretation and review of laboratory results Abnormal [facility] Ketones, UA Positive Negative - 160(16) ++++ mg/dL [facility] Comment on above: Trace Leukocytes, UA Positive Negative - 500+++ Rufina/mcL [facility] Comment on above: 1+ Nitrite, UA Negative Negative - Positive [facility] pH, UA 6 5 - 9 [facility] Health[facility] e Protein, UA Positive Negative - 1999(20) ++++ mg/dL [facility] Healthcare Comment on above: 1+ Spec Grav, UA 1.025 1 - 1.03 [facility] Urobilinogen, UA 0.2 0.2 - 12 mg/dL [facility] Urinalysis macro (dipstick) panel (U)on 12-24-2024 Bilirubin, UA Negative Negative - 4(70) +++ mg/dL [facility] Blood, UA Negative Negative - 50 Eulogio/mcL [facility] Clarity, UA Clear [facility] Color, UA Yellow [facility] Glucose, UA Negative Negative - 1999(110) ++++ mg/dL [facility] Interpretation and review of laboratory results [facility]normal [facility] Ketones, UA Negative Negative - 160(16) ++++ mg/dL [facility] Leukocytes, UA Negative Negative - 500+++ Rufina/mcL [facility] Nitrite, UA Negative Negative - Positive [facility] pH, UA 6.5 5 - 9 [facility] Protein, UA 1+ Negative - 1999(20) ++++ mg/dL [facility] Spec Grav, UA 1.015 1 - 1.03 [facility] Urobilinogen, UA 1.0 0.2 - 12 mg/dL [facility] US OB GROWTHon 12-14-2024 [place] [address] Ultrasound Report Signed Patient: HESHAM AVALOS MR#: [id number] : 2000 Acct:[id number] Age/Sex: 24 / F ADM Date: 12/14/24 Loc: US Attending Dr: Don Hidalgo D.O. Ordering Physician: Don Hidalgo D.O. Date of Service: 12/14/24 Procedure(s): US OB growth Accession Number(s): [id number] cc: Don Hidalgo D.O.; TAISHA PENA [place] [id number] Patient Name: HESHAM AVALOS MRN: [id number] date: 2000 Sex: F Assigned Patient Location: US Current Patient Location: US Accession/Order Number: [id number] Exam Date: 12/14/2024 09:50 Report Date: 12/14/2024 [...] Atkinson M.D. 12/14/2024 11:17 AM Dictation Location: [employer] Electronically authenticated by: [id number] Y Date: 12/14/2024 11:17 Dictated By: Wilfrido Atkinson M.D. Signed By: 12/14/24 1119 DD/ 1117 TD/TT: Freight Loader: [facility] Radiology, Radiologist, - 12/14/2024 [place] [address] Ultrasound Report Signed Patient: HESHAM AVALOS MR#: [id number] : 2000 Acct:[id number] Age/Sex: 24 / F ADM Date: 12/14/24 Loc: US Attending Dr: Don Hidalgo D.O. Ordering Physician: Don Hidalgo D.O. Date of Service: 12/14/24 Procedure(s): US OB growth Accession Number(s): [id number] cc: Don Hidalgo D.O.; TAISHA PENA [place] [id number] Patient Name: HESHAM AVALOS MRN: [facility]:[id number] date: 2000 Sex: F Assigned Patient Location: US Current Patient Location: US Accession/Order Number: [id number] Exam Date: 12/14/2024 09:50 Report Date: 12/14/2024 [...] Atkinson M.D. 12/14/2024 11:17 AM Dictation Location: [place] [address] Electronically authenticated by: [id number] Y Date: 12/14/2024 11:17 Dictated By: Wilfrido Atkinson M.D. Signed By: 12/14/24 1119 DD/ 1117 TD/TT: Freight Loader: [facility] Radiology Study observation (narrative) [facility] OB GROWTHOrdered By: Nini munizogdoyle Radiology on 12-14-2024 [facility] [employer] Work Phone: Urinalysis macro (dipstick) panel (U)on 12-12-2024 Bilirubin, UA Negative Negative - 4(70) +++ mg/dL [facility] Blood, UA Negative Negative - 50 Eulogio/mcL [facility] Clarity, UA Clear [facility] re Color, UA [facility] e Glucose, UA Negative Negative - 1999(110) ++++ mg/dL [facility] Interpretation and review of laboratory results Abnormal [facility] Ketones, UA Negative Negative - 160(16) ++++ mg/dL [facility] Leukocytes, UA Positive Negative - 500+++ Rufina/mcL [facility] Comment on above: Trace Nitrite, UA Negative Negative - Positive [facility] pH, UA 6 5 - 9 [facility] Protein, UA Positive Negative - 1999(20) ++++ mg/dL [facility] Comment on above: 1+ Spec Grav, UA 1.02 1 - 1.03 [facility] Urobilinogen, UA 0.2 0.2 - 12 mg/dL [facility] Urinalysis macro (dipstick) panel (U)on 11-28-2024 Bilirubin, UA 1+ Negative - 4(70) +++ mg/dL [facility] Blood, UA Negative Negative - 50 Eulogio/mcL [facility] Clarity, UA Clear [facility] re Color, UA Yellow [facility] Glucose, UA Negative Negative - 1999(110) ++++ mg/dL [facility] Interpretation and review of laboratory results Abnormal [facility] Ketones, UA Negative Negative - 160(16) ++++ mg/dL [facility] Leukocytes, UA 1+ Negative - 500+++ Rufina/mcL [facility] Nitrite, UA Negative Negative - Positive [facility] pH, UA 6 5 - 9 [facility] e Protein, UA 1+ Negative - 1999(20) ++++ mg/dL [facility] Spec Grav, UA 1.015 1 - 1.03 [facility] Urobilinogen, UA 1.0 0.2 - 12 mg/dL [facility] ALL CBC WITH AUTO DIFFon BASOPHILS ABSOLUTE AUTO 0 [facility] Basophils/100 WBC (Bld) 0.2 % 0.2 - 2.0 % [facility] Eosinophils/100 WBC (Bld) 0.2 % Low 0.9 - 7.0 % [facility] Erythrocyte distribution width (RBC) [Ratio] 13.7 % 11.0 - 15.0 % [facility] Hematocrit (Bld) [Volume fraction] 32.3 % Low 36.0 - 48.0 % [facility] Hemoglobin (Bld) [Mass/Vol] 10.6 g/dL Low 12.0 - 16.0 g/dL [facility] IMMATURE GRANULOCYTES ABS AUTO 0.04 High [facility] Immature granulocytes/100 WBC (Bld) 0.4 % 0.0 - 0.5 % [facility] Interpretation and review of laboratory results Abnormal [facility] LYMPHOCYTES ABSOLUTE AUTO 1.5 [facility] Lymphocytes/100 WBC (Bld) 16.2 % Low 20.5 - 60.0 % [facility] MCH (RBC) [Entitic mass] 30.9 pg 26.7 - 34.0 pg [facility] MCHC (RBC) [Mass/Vol] 32.8 g/dL 29.9 - 35.2 g/dL [facility] MCV (RBC) [Entitic vol] 94.2 fL 81.0 - 99.0 fL [facility] MONOCYTES ABSOLUTE AUTO 0.5 [facility] Monocytes/100 WBC (Bld) 5.8 % 1.7 - 12.0 % [facility] NEUTROPHILS ABSOLUTE AUTO 6.9 High [facility] Neutrophils/100 WBC (Bld) 77.2 % High 43.0 - 75.0 % [facility] Platelet mean volume (Bld) [Entitic vol] 10.1 fL 9.5 - 13.5 fL [facility] E[facility] # 0 [facility] TB PLT 183 [facility] TB RBC 3.43 Low [facility] TB WBC 9 [facility] Urinalysis macro (dipstick) panel (U)on 11-14-2024 Bilirubin, UA Negative Negative - 4(70) +++ mg/dL [facility] Blood, UA Negative Negative - 50 Eulogio/mcL [facility] Clarity, UA Clear [facility] re Color, UA Yellow [facility] Glucose, UA Negative Negative - 1999(110) ++++ mg/dL [facility] Interpretation and review of laboratory results Abnormal [facility] Ketones, UA Negative Negative - 160(16) ++++ mg/dL [facility] Leukocytes, UA Positive Negative - 500+++ Rufina/mcL [facility] Comment on above: Small Nitrite, UA Negative Negative - Positive [facility] pH, UA 6.5 5 - 9 [facility] Health[facility] e Protein, UA Positive Negative - 1999(20) ++++ mg/dL [facility] Comment on above: Small Spec Grav, UA 1.015 1 - 1.03 [facility] Urobilinogen, UA 0.2 0.2 - 12 mg/dL [facility] Urinalysis macro (dipstick) panel (U)on 10-17-2024 Bilirubin, UA Negative Negative - 4(70) +++ mg/dL [facility] Blood, UA Negative Negative - 50 Eulogio/mcL [facility] Clarity, UA Clear [facility] Health[facility] re Color, UA Yellow [facility] Glucose, UA Negative Negative - 1999(110) ++++ mg/dL [facility] Interpretation and review of laboratory results Normal [facility] Ketones, UA Negative Negative - 160(16) ++++ mg/dL [facility] Leukocytes, UA Negative Negative - 500+++ Rufina/mcL [facility] Nitrite, UA Negative Negative - Positive [facility] pH, UA 7 5 - 9 [facility] Health[facility] e Protein, UA Negative Negative - 1999(20) ++++ mg/dL [facility] Spec Grav, UA 1.02 1 - 1.03 [facility] Urobilinogen, UA 0.2 0.2 - 12 mg/dL [facility] Ambulatory Visit Summaryon 0 - Ambulatory Visit Summary Ambulatory Visit Summary CLAUDIAHITESHDEION Villagran :2000 Visit Date:10/07/2024 Ambulatory Visit Instructions Your [...] [facility] [address], [place] [address] [phone] Medications What How Much When Instructions Unchanged [...] care provider who specializes in women's health (wildlife enforcement major). How is this treated? Treatment for this condition depends on the cause of the condition and your symptoms. Treatment may include: ??? Lubricants, ointments, and creams. ??? Physical therapy. ??? Massage therapy. ??? Hormonal therapy. ??? Medicines to: ? Prevent or fight infection. ? Relieve pain. ? Help numb the area. ? Treat de (more content not included)... Normal [facility] Urology Office/Clinic Noteon 10-07-2024 Urology Office/Clinic [...] [facility] [address] , [place] [address] [phone] Additional Instructions: Patient Education Dyspareunia, Female Chichi Ybarra, personally scribed for Dr. Richard on 10/07/2024 [...] Seizure: Sister. Immunizations Vaccine Date Status SARSCoV2 mRNA(htxqnyxyp-tvzd-t ucros) vac 06/03/2021 Recorded SARS-CoV-2 (COVID-19) mRNA BNT-162b2 vax 05/13/2021 Recorded influenza virus vaccine, inactivated 02/01/2021 Recorded hepatitis B pediatric vaccine 10/29/2019 Recorded hepatitis B adult vaccine 05/14/2019 Recorded measles/mumps/rubella /varicella vaccine 04/11/2019 Recorded hepatitis B pediatric vaccine 04/11/2019 Recorded meningococcal conjugate vaccine 11/09/2017 Recorded poliovirus vaccine, inactivated 12/08/2004 Recorded measles/mumps/rubella virus vaccine 12/08/2004 Recorded diphtheria/pertussis, acel/tetanus ped (more content not included)... Normal [facility] Comment on above: Result Comment: Elec tronically Signed By: Darin RICHARD MD\.br\Date and Time Signed: 10/07/24 08:55 EDT\.br\Electronically Co-Signed By: Chichi Bautista.br\Date and Time Co-Signed: 10/07/24 08:53 EDT GLUCOSE 1 HOURon 09-18-2024 Glucose [Mass/Vol] 104 mg/dL NINF - 13 0 mg/dL [facility] Health[facility] e Urinalysis macro (dipstick) panel (U)on 09-17-2024 Bilirubin, UA Negative Negative - 4(70) +++ mg/dL [facility] Blood, UA Negative Negative - 50 Eulogio/mcL [facility] Clarity, UA Clear [facility] Color, UA Yellow [facility] Health[facility] e Glucose, UA Negative Negative - 1999(110) ++++ mg/dL [facility] Interpretation and review of laboratory results Abnormal [facility] Ketones, UA Positive Negative - 160(16) ++++ mg/dL [facility] Comment on above: 40mg/dL Leukocytes, UA Negative Negative - 500+++ Rufina/mcL [facility] Nitrite, UA Negative Negative - Positive [facility] pH, UA 6 5 - 9 [facility] Health[facility] e Protein, UA Negative Negative - 1999(20) ++++ mg/dL [facility] Spec Grav, UA 1.015 1 - 1.03 [facility] Urobilinogen, UA 0.2 0.2 - 12 mg/dL [facility] e Urinalysis macro (dipstick) panel (U)on 08-20-2024 Bilirubin, UA Positive Negative - (70) +++ mg/dL [facility] Comment on above: small Blood, UA Negative Negative - 50 Eulogio/mcL [facility] Clarity, UA Clear [facility] Healthca re Color, UA Yellow [facility] Health[facility] e Glucose, UA Negative Negative - 1999(110) ++++ mg/dL [facility] Interpretation and review of laboratory results Abnormal [facility] Ketones, UA Positive Negative - 160(16) ++++ mg/dL [facility] Comment on above: 15mg/dL Leukocytes, UA Positive Negative - 500+++ Rufina/mcL [facility] Comment on above: small Nitrite, UA Negative Negative - Positive [facility] pH, UA 7.5 5 - 9 [facility] Health[facility] e Protein, UA Positive Negative - 1999(20) ++++ mg/dL [facility] Comment on above: 100mg/dL Spec Grav, UA 1.015 1 - 1.03 [facility] Urobilinogen, UA 1.0 0.2 - 12 [...] [facility] [address], [place] [address] [phone] Medications What How Much When Instructions Unchanged [...] including vitamins, herbs, eye drops, creams, and cqjt-lwh-tbjugkm medicines. ??? Any problems you or family [...] tells you to take them. ??? Taking qexl-bju-mcykqvr medicines, vitamins, herbs, and supplements. Tests You [...] (local ane (more content not included)... Normal [facility] Urology Office/Clinic Noteon 08-05-2024 Urology Office/Clinic Note [...] [facility] [address], [place] [address] [phone] Additional Instructions: schedule cystoscopy Patient Education Cystoscopy [...] failure: Grandparent. Hypertension: Grandparent. Seizure: Sister. Normal [facility] Comment on above: Result Comment: Elec tronically Signed By: Darin RICHARD MD\.br\Date and Time Signed: 08/05/24 13:46 EDT\.br\Electronically Co-Signed By: Chichi Bautista\.br\Date and Time Co-Signed: 08/05/24 13:44 EDT RECURRENT VAGINITIS (HTRX)on 07-24-2024 [facility] ATOPOBIUM VAGINAE Not detected [facility] Healthcare BVAB 2,3 (BACTERIAL VAGINOSIS ASSOCIATED BACTERIA 2, 3); MOBILUNCUS SPP 0 [facility] BVAB 2,3 (BACTERIAL VAGINOSIS ASSOCIATED BACTERIA 2, 3); MOBILUNCUS SPP Not detected [facility] LIU ALBICANS, PARAPSILOSIS, TROPICALIS [address] [facility] LIU ALBICANS, PARAPSILOSIS, TROPICALIS Not detected [facility] Healthcare LIU GLABRATA 0 [facility] Hea lthcare LIU GLABRATA Not detected [facility] LIU KRUSEI 0 [facility] LIU KRUSEI Not detected [facility] CHLAMYDIA TRACHOMATIS 0 [facility] CHLAMYDIA TRACHOMATIS Not detected [facility] GARDNERELLA VAGINALIS 0 [facility] GARDNERELLA VAGINALIS Not detected [facility] MEGASPHAERA (TYPES 1, 2) 0 [facility] MEGASPHAERA (TYPES 1, 2) Not detected [facility] Healthcare MYCOPLASMA GENITALIUM 0 [facility] MYCOPLASMA GENITALIUM Not detected [facility] NEISSERIA GONORRHOEAE 0 [facility] NEISSERIA GONORRHOEAE Not detected [facility] TRICHOMONAS V[facility]INALIS 0 [facility] TRICHOMONAS [facility] Not [facility] macro (dipstick) panel (U)on 07-23-2024 Bilirubin, UA Negative Negative - 4(70) +++ mg/dL [facility] Blood, UA Negative Negative - 50 Eulogio/mcL [facility] Clarity, UA Clear [facility] Health[facility] re Color, UA Yellow [facility] e Glucose, UA Negative Negative - 2000(110) ++++ mg/dL [facility] Interpretation and review of laboratory results Abnormal [facility] Ketones, UA Positive Negative - 160(16) ++++ mg/dL [facility] Comment on above: trace Leukocytes, UA Negative Negative - 500+++ Rufina/mcL [facility] Nitrite, UA Negative Negative - Positive [facility] pH, UA 6.5 5 - 9 [facility] e Protein, UA Trace Negative - 2000(20) ++++ mg/dL [facility] Spec Grav, UA 1.03 1 - 1.03 [facility] Urobilinogen, UA 0.2 0.2 - 12 mg/dL [facility] Healthcar e Free Cell DNAOrdered B y: Pao Fu on 07-16-2024 [facility] BOX TESTon 07-08-2024 BOX TEST SENT OUT [facility]care BOX1 [facility] e BOX2 07/08/24 [facility] [employer] [facility] Drug Screen, Urineon 025 Amphetamine/Methamph etamine Negative [facility] Barbiturates Negative [facility] Benzodiazepines Negative [facility] Cocaine Metabolite Negative [facility] Methadone Negative [facility] Opiates Negative [facility] Oxycodone Negative [facility] Phencyclidine Negative [facility] Thc Marijuana, Urine Negative [facility] HIV 1&2 AB/AG Screen (P24 AG )on 07-08-2024 HIV 1&2 AB/AG Non-Reactive [facility] Hepatitis B surface antigeno n 07-08-2024 Hepatitis B Surface Antigen Negative [facility] Hepatitis C(HCV) Ab w/ Refle x to PCRon 07-08-2024 HCV Ab Ql (S) Non-Reactive [facility] No Panel Informationon 07-08 [facility] Rubella IGG immune statuson 07-08-2024 Rubella immune IgG IMMUNE [facility] Syphilis Total(Unknown Syphi lis Status)on 07-08-2024 Syphilis Non-Reactive [facility] Type and screenon 07-08-2024 Abo/Rh(D) Positive [facility] US OB TRANSVAGINALon 025 OB TRANSVAGINAL EXAM: US OB TRANSVAGINAL HISTORY: [...] II, MD, PHD at 05-Jul-2024 08:37:00 PM [facility] Normal Not Available Comment on above: Order Comment: US OB TRANSVAGINAL No LMP recorded. Cytology Cervical or vaginal smear or scraping studyon 11-21-2023 [facility] PAP ACOG PANEL 2: 21 to 29on 03-04-2022 . . Normal [facility] Comment on above: Performed By: #### [id number] #### [facility] [address] [address] [address] Anthony Newton Age Gdln ACOG Testing 21- Normal [facility] Comment on above: Performed By: #### [id number] #### [facility] [address] [place], [place] [address] Dr. Anthony Newton DIAGNOSIS: Comment Normal [facility] Comment on above: Result Comment: NEGA TIVE FOR INTRAEPITHELIAL LESION OR MALIGNANCY. THIS SPECIMEN WAS RESCREENED PART OF OUR PENCIL MAKER PROGRAM. Performed By: #### [id number] #### [facility] [address] [place] [address] Dr. Anthony Newton Methodology: Comment Normal [facility] Comment on above: Result Comment: This liquid based ThinPrep(R) pap test was screened with the use of an image guided system. Performed By: #### [id number] #### [facility] [address] [place] [address] Dr. Anthony Newton Note: Comment Normal [place] [...] do occur. . Performed By: #### [id number] #### [facility] [address] [place] [address] Dr. Anthony Newton Performed by: Comment Normal [facility] Comment on above: Result Comment: Lana Connell Cutlery Grinder Performed By: #### [id number] #### [facility] [address] [place] [address] Dr. Anthony Newton QC reviewed by: Comment Normal [facility] Comment on above: Result Comment: Shae Maria, Cutlery Grinder (ASCP) Performed By: #### [id number] #### [facility] [address] [place] [address] Dr. Anthony Newton Reflex Criteria: Comment Normal [facility] Comment on above: Result Comment: The HPV DNA reflex criteria were not met with this specimen result therefore, no HPV testing was performed. . Performed By: #### [id number] #### [facility] [address] [place] [address] Dr. Anthony Newton Specimen adequacy: Comment Normal [facility] Comment on above: Result Comment: Sati sfactory for evaluation. Endocervical and/or squamous metaplastic cells (endocervical component) are present. Performed By: #### [id number] #### [facility] [address] [place] [address] Dr. Anthony Newton Lab - Toxicology Resultson 0 6-21-2019 Lab - Toxicology Results [id number]. 00OTGTIFF [facility] Outside Recordson 10-04-2018 Outside Records [id number]. 00OTGTIFF [facility] Triage Industrialon 10-05-19 Drug Screen Complete Collected [facility] Comment on above: Performed By: #### [id number] #### [facility] (DEFAULT) [address] [place] [id number] ED Clinical Summaryon 2018 ED Clinical Summary [facility] ? Urgent Care [address] [place] [address] [id number] Clinical Summary PERSON INFORMATION Name: HESHAM NEELY PAYAL Age: 18 Years Sex: FEMALE : 00 MRN: Acct#: Visit Reason: Medical screening exam; PHYSICAL PRE EMPLOYMENT/ RIVERVIEW Arrival: 10/03/18 16:20:33 Discharge: 10/03/18 16:50:00 LOS: 000 00:30 Check In: 10/03/18 16:20:33 Checkout: 10/03/18 16:50:00 Address: [address] [place] [id number] PCP: PROVIDER INFORMATION Provider Role Assigned Unassigned [...] INFORMATION Instructions: Follow-Up: DIAGNOSIS: Patient Understands: Comment: [facility] ED Patient Summaryon 019 ED Patient Summary [facility] ? Urgent Care [address] [place] [address] [id number] PATIENT DISCHARGE INSTRUCTIONS Patient Information Name: HESHAM NEELY PAYAL Age: 18 Years Date of : 00 [facility]: [id number] Reason For Visit: Medical screening exam; PHYSICAL PRE EMPLOYMENT/ RIVERVIEW Arrival Time: 10/03/18 16:20:33 Primary Care Physician: Attending Physician: Paulino Padilla Comment: Patient Education Medication Information: The exam and treatment you received today in the [facility] were for an urgent problem and are not intended as complete care. It is important for you to follow up with a doctor, nurse practitioner, or physician?s visitor use assistant for ongoing care. If your symptoms [...] so we can reach you if necessary. [facility] Emergency Department has provided you with a complete list of medications post discharge. Please inform your dam attendant/provider of your visit and for further instruction on these medications. Any specific questions regarding your chronic medications and dosages should be discussed with your primary care physician(s) and/or pharmacist. Visit Information Visit Diagnosis: Diagnoses This Visit Medical screening exam ([id number]) If you received any narcotics, sedation, or [...] sign any legal documents Reason for Visit: Divide physical Allergies: Substance Reaction Symptoms Type Comments [...] for Disease Control and Prevention December 2013 [facility] Vital Signs Date Time Vital Sign Value Performing Clinician Sole rodriguez 01-14-2025 09:32-0400 Body mass index (BMI) [Ratio] 39.48 kg/m2 Britney Smith NP Work Phone: [facility] 01-14-2025 09:32-0400 Body weight 104.33 kg Britney Smith NP Work Phone: [facility] 01-14-2025 09:32-0400 Diastolic blood pressure 68 mm[Hg] Britney Smith BREAK OUT WORKER Work Phone: [facility] 01-14-2025 09:32-0400 Systolic blood pressure 122 mm[Hg] Britney Smith NP Work Phone: [facility] 01-06-2025 10:44-0400 Body mass index (BMI) [Ratio] 39.16 kg/m2 Kathie COCHRAN Work Phone: [facility] 01-06-2025 10:44-0400 Body weight 103.48 kg Kathie COCHRAN Work Phone: [facility] 01-06-2025 10:44-0400 Diastolic blood pressure 66 mm[Hg] Kathie Jesus PA Work Phone: [facility] 01-06-2025 10:44-0400 Systolic blood pressure 122 mm[Hg] Kathie Stockton PA Work Phone: [facility] 12-24-2024 10:07-0400 Body mass index (BMI) [Ratio] 39.31 kg/m2 Don Rocky DO Work Phone: [facility] 12-24-2024 10:07-0400 Body weight 103.87 kg Don Rocky DO Work Phone: [facility] 12-24-2024 10:07-0400 Diastolic blood pressure 70 mm[Hg] Don Rocky DO Work Phone: [facility] 12-24-2024 10:07-0400 Systolic blood pressure 124 mm[Hg] Don Rocky DO Work Phone: [facility] 12-12-2024 10:28-0400 Body mass index (BMI) [Ratio] 38.96 kg/m2 Kathie Jesus PA Work Phone: [facility] 12-12-2024 10:28-0400 Body weight 102.97 kg Kathie Jesus PA Work Phone: [facility] 12-12-2024 10:28-0400 Diastolic blood pressure 70 mm[Hg] Kathie Jesus PA Work Phone: [facility] 12-12-2024 10:28-0400 Systolic blood pressure 130 mm[Hg] Kathie Stockton PA Work Phone: [facility] 11-28-2024 08:48-0400 Body mass index (BMI) [Ratio] 38.62 kg/m2 Don Rocky DO Work Phone: [facility] 11-28-2024 08:48-0400 Body weight 102.06 kg Don Rocky DO Work Phone: [facility] 11-28-2024 08:48-0400 Diastolic blood pressure 74 mm[Hg] Don Rocky DO Work Phone: [facility] 11-28-2024 08:48-0400 Systolic blood pressure 118 mm[Hg] Don Rocky DO Work Phone: [facility] 11-14-2024 11:22-0400 Body mass index (BMI) [Ratio] 38.88 kg/m2 Kathie Jesus PA Work Phone: [facility] 11-14-2024 11:22-0400 Body weight 102.74 kg Kathie Stockton PA Work Phone: [facility] 11-14-2024 11:22-0400 Diastolic blood pressure 64 mm[Hg] Kathie Stockton PA Work Phone: [facility] 11-14-2024 11:22-0400 Systolic blood pressure 122 mm[Hg] Kathie Jesus PA Work Phone: [facility] 10-17-2024 08:10-0400 Body mass index (BMI) [Ratio] 38.66 kg/m2 Don Rocky DO Work Phone: [facility] 10-17-2024 08:10-0400 Body weight 102.17 kg Don Rocky DO Work Phone: [facility] 10-17-2024 08:10-0400 Diastolic blood pressure 58 mm[Hg] Don Rocky DO Work Phone: [facility] 10-17-2024 08:10-0400 Systolic blood pressure 114 mm[Hg] Don Rocky DO Work Phone: [facility] 09-23-2024 11:59-0400 Body height 162.6 cm Cintia Allen MD Work Phone: [facility] 09-23-2024 11:59-0400 Body mass index (BMI) [Ratio] 38.04 kg/m2 Cintia Allen MD Work Phone: [facility] 09-23-2024 11:59-0400 Body weight 100.52 kg Cintia Allen MD Work Phone: [facility] 09-23-2024 11:59-0400 Diastolic blood pressure 75 mm[Hg] Cintia Allen MD Work Phone: [facility] 09-23-2024 11:59-0400 Heart rate 90 /min Cintia Allen MD Work Phone: [facility] 09-23-2024 11:59-0400 Systolic blood pressure 119 mm[Hg] Cintia Allen MD Work Phone: [facility] 09-17-2024 13:49-0400 Body mass index (BMI) [Ratio] 38.28 kg/m2 Kathie COCHRAN Work Phone: [facility] 09-17-2024 13:49-0400 Body weight 101.15 kg Kathie COCHRAN Work Phone: [facility] 09-17-2024 13:49-0400 Diastolic blood pressure 78 mm[Hg] Kathie COCHRAN Work Phone: [facility] 09-17-2024 13:49-0400 Systolic blood pressure 124 mm[Hg] Kathie COCHRAN Work Phone: [facility] 08-20-2024 10:54-0400 Body mass index (BMI) [Ratio] 37.59 kg/m2 Don Rocky DO Work Phone: [facility] 08-20-2024 10:54-0400 Body weight 99.34 kg Don Rocky DO Work Phone: [facility] 08-20-2024 10:54-0400 Diastolic blood pressure 84 mm[Hg] Don Rocky DO Work Phone: [facility] 08-20-2024 10:54-0400 Systolic blood pressure 126 mm[Hg] Don Rocky DO Work Phone: [facility] 07-23-2024 12:54-0400 Body mass index (BMI) [Ratio] 38.28 kg/m2 Don Rocky DO Work Phone: [facility] 07-23-2024 12:54-0400 Body weight 101.15 kg Don Rocky DO Work Phone: [facility] 07-23-2024 12:54-0400 Diastolic blood pressure 80 mm[Hg] Don Rocky DO Work Phone: [facility] 07-23-2024 12:54-0400 Systolic blood pressure 120 mm[Hg] Don Rocky DO Work Phone: [facility] 05-24-2023 14:05-0500 Body height 162.6 cm Stephanie Sotelo BREAK OUT WORKER Work Phone: [facility] 05-24-2023 14:05-0500 Body mass index (BMI) [Ratio] 34.57 kg/m2 Stephanie Sotelo BREAK OUT WORKER Work Phone: [facility] 05-24-2023 14:05-0500 Body weight 91.35 kg Stephanie Sotelo BREAK OUT WORKER Work Phone: [facility] 05-24-2023 14:05-0500 Diastolic blood pressure 74 mm[Hg] Stephanie Sotelo BREAK OUT WORKER Work Phone: [facility] 05-24-2023 14:05-0500 Heart rate 63 /min Stephanie Sotelo BREAK OUT WORKER Work Phone: [facility] 05-24-2023 14:05-0500 Respiratory rate 20 /min Stephanie Sotelo BREAK OUT WORKER Work Phone: [facility] 05-24-2023 14:05-0500 SaO2% (BldA) [Mass fraction] 96 % Stephanie Sotelo BREAK OUT WORKER Work Phone: [facility] 05-24-2023 14:05-0500 Systolic blood pressure 138 mm[Hg] Stephanie Sotelo BREAK OUT WORKER Work Phone: [facility] 04-12-2023 15:05-0500 Body height 162.6 cm Daniella Reina MD Work Phone: [employer] 04-12-2023 15:05-0500 Body mass index (BMI) [Ratio] 37.93 kg/m2 Daniella Reina MD Work Phone: [facility] 04-12-2023 15:05-0500 Body weight 100.25 kg Daniella Reina MD Work Phone: [facility] 04-12-2023 15:05-0500 Diastolic blood pressure 76 mm[Hg] Daniella Reina MD Work Phone: [facility] 04-12-2023 15:05-0500 Heart rate 96 /min Daniella Reina MD Work Phone: [facility] 04-12-2023 15:05-0500 Systolic blood pressure 115 mm[Hg] Daniella Reina MD Work Phone: [facility] [employer] Encounters Encounter Date Encounter Type Care Provider Facility Start: 01-18-2025 End: 01-18-2025 Clinisync Result Encounter Britney Smith NP Work Phone: [facility] Unsolicited Start: 01-18-2025 End: 01-18-2025 Clinisync Result Encounter Britney Smith NP Work Phone: [facility] Unsolicited Start: 01-14-2025 End: 01-19-2025 Clinisync Result Encounter Generic External Data Provider [facility] External [facility] Unsolicited Start: 01-14-2025 End: 01-19-2025 Clinisync Result Encounter Generic External Data Provider [facility] External [facility] Unsolicited Start: 01-14-2025 End: 01-14-2025 flow sheet Britney Smith NP Work Phone: [facility] Comment on above: Third trimester preg bria ([facility]); 36 weeks gestation of ([facility]); History of placental abnormality; Excessive growth affecting management of , antepartum, single or unspecified fetus ([facility]) Start: 01-14-2025 End: 01-14-2025 ambulatory BRITNEY SMITH Not Available Start: 01-06-2025 End: 01-06-2025 Bamboo flowsheet Kathie COCHRAN Work Phone: [facility] Start: 01-06-2025 End: 01-06-2025 Bamboo flowsheet Kathie COCHRAN Work Phone: [facility] Start: 01-06-2025 End: 01-06-2025 flow sheet Kathie COCHRAN Work Phone: [facility] Comment on above: Third trimester preg bria ([facility]); 35 weeks gestation of ([facility]) Start: 01-06-2025 End: 01-06-2025 ambulatory KATHIE ROMAN Not Available Start: 12-24-2024 End: 12-24-2024 Bamboo flowsheet Don Rocky DO Work Phone: [facility] Start: 12-24-2024 End: 12-24-2024 Bamboo flowsheet Don Rocky DO Work Phone: [facility] Start: 12-24-2024 End: 12-24-2024 flow sheet Don Rocky DO Work Phone: [facility] Comment on above: Third trimester preg bria ([facility]); 33 weeks gestation of ([facility]); History of placental abnormality; Excessive growth affecting management of , antepartum, single or unspecified fetus ([facility]) Start: 12-24-2024 End: 12-24-2024 ambulatory DON ROCKY [...] flow sheet Kathie COCHRAN Work Phone: [facility] Comment on above: Third trimester preg bria ([facility]); 31 weeks gestation of ([facility]) Start: 12-12-2024 End: 12-12-2024 ambulatory KATHIE ROMAN Not Available Start: 11-28-2024 End: 11-28-2024 Bamboo flowsheet Don Rocky DO Work Phone: [facility] Start: 11-28-2024 End: 11-28-2024 Bamboo flowsheet Don Rocky DO Work Phone: [facility] Start: 11-28-2024 End: 11-28-2024 flow sheet Don Rocky DO Work Phone: [facility] Comment on above: Third trimester preg bria ([facility]); 29 weeks gestation of ([facility]); History of placental abnormality; Excessive growth affecting management of in third trimester, single or unspecified fetus ([facility]) Start: 11-28-2024 End: 11-28-2024 ambulatory DON ROCKY Not Available Start: 11-16-2024 End: 11-16-2024 Clinisync Result Encounter Generic External Data Provider [facility] External [facility] Unsolicited Start: 11-16-2024 End: 11-16-2024 Clinisync Result Encounter Generic External Data Provider [facility] External [facility] Unsolicited Start: 11-14-2024 End: 11-14-2024 Bamboo flowsheet Kathie COCHRAN Work Phone: [facility] Start: 11-14-2024 End: 11-14-2024 Bamboo flowsheet Kahtie COCHRAN Work Phone: [facility] Start: 11-14-2024 End: 11-14-2024 flow sheet Kathie COCHRAN Work Phone: [facility] Comment on above: Second trimester pre gnancy ([facility]); 27 weeks gestation of ([facility]) Start: 11-14-2024 End: 11-14-2024 ambulatory KATHIE ROMAN Not Available Start: 10-24-2024 End: 10-24-2024 ambulatory DON R ROCKY [facility] Start: 10-17-2024 End: 10-17-2024 Bamboo flowsheet Don Rocky DO Work Phone: [facility] Start: 10-17-2024 End: 10-17-2024 Bamboo flowsheet Don Rocky DO Work Phone: [facility] Start: 10-17-2024 End: 10-17-2024 flow sheet Don Rocky DO Work Phone: [facility] Comment on above: Second trimester pre gnancy ([facility]); 23 weeks gestation of ([facility]); Diabetes mellitus screening Start: 10-17-2024 End: 10-17-2024 ambulatory DON ROCKY Not Available Start: 10-07-2024 End: 10-07-2024 ambulatory Darin RICHARD Facility:[facility] Start: 10-07-2024 End: 10-07-2024 Patient encounter procedure Darin RICHARD [facility] Start: 09-23-2024 End: 09-23-2024 Office consultation new/estab patient 40 min Cintia Allen MD Work Phone: [facility] [place] Comment on above: Obesity affecting pr egnancy in second trimester, unspecified obesity type (Primary Dx) Start: 09-23-2024 End: 09-23-2024 Orders Only Sherrill Hernandez [facility] [place] Comment on above: Polyhydramnios affec ting (Primary Dx); Low-lying placenta; Placenta previa in second trimester; Velamentous insertion of umbilical cord in second trimester; Vasa previa, single or unspecified fetus; History of hemorrhage, currently in second trimester Start: 09-18-2024 End: 09-18-2024 Clinisync Result Encounter Don Rocky DO Work Phone: [facility] External Department Unsolicited Start: 09-18-2024 End: 09-18-2024 Clinisync Result Encounter Don Rocky DO Work Phone: [facility] External Department Unsolicited Start: 09-17-2024 End: 09-17-2024 Bamboo flowsheet Kathie COCHRAN Work Phone: [facility] Start: 09-17-2024 End: 09-17-2024 Bamboo flowsheet Kathie COCHRAN Work Phone: [facility] Start: 09-17-2024 End: 09-17-2024 ambulatory KATHIE ROMAN Not Available Start: 09-17-2024 End: 09-17-2024 flow sheet Kathie COCHRAN Work Phone: [facility] Comment on above: Second trimester pre gnancy; 19 weeks gestation of ; Screening, , for anatomic survey Start: 08-20-2024 End: 08-20-2024 Bamboo flowsheet Don Rocky DO Work Phone: [facility] Start: 08-20-2024 End: 08-20-2024 Bamboo flowsheet Don Rocky DO Work Phone: [facility] Start: 08-20-2024 End: 08-20-2024 ambulatory DNO ROCKY Not Available Start: 08-20-2024 End: 08-20-2024 flow sheet Don Rocky DO Work Phone: [facility] Comment on above: Second trimester pre gnancy; 15 weeks gestation of ; Diabetes mellitus screening Start: 08-05-2024 End: 08-05-2024 ambulatory Darin RICHARD Facility:[facility] Start: 08-02-2024 End: 08-02-2024 Chart abstracting Cintia Allen MD Work Phone: [facility] [place] Start: 07-25-2024 ambulatory Facility:[facility] Start: 07-23-2024 [...] 05-24-2023 Bamboo flowsheet Stephanie A [employer] BREAK OUT WORKER Work Phone: [facility] Start: 05-24-2023 Bamboo flowsheet Stephanie A [employer] BREAK OUT WORKER Work Phone: [facility] Start: 05-24-2023 End: 05-24-2023 Patient encounter status Stephanie Villagran Sotelo BREAK OUT WORKER Work Phone: [facility] Work Phone: Start: 05-24-2023 End: 05-24-2023 Periodic preventive med est patient 18-39 yrs Stephanie Sotelo BREAK OUT WORKER Work Phone: [facility] Comment on above: Encounter for wellne ss examination (Primary Dx); Anemia, unspecified type Start: 04-12-2023 End: 04-12-2023 Office outpatient visit 25 minutes Daniella Reina MD Work Phone: [facility] Comment on above: 35 weeks gestation o f (Primary Dx); Polyhydramnios affecting Start: 02-24-2022 End: 02-24-[address] DON HIDALGO Facility: Procedures Date Procedure Procedure Detail Performing Clinician Start: 01-18-2025 OB BPP W NON-STRESS Britney Smith BREAK OUT WORKER Work Phone: Start: 01-14-2025 Urnls dip stick/tabl et rgnt non-auto w/o micrscp Britney Smith BREAK OUT WORKER Work Phone: Start: 01-14-2025 STREP GP B CULTURE+RFLX Generic External Data Provider Start: 01-06-2025 Urnls dip stick/tabl et rgnt non-auto w/o micrscp Kathie COCHRAN Work Phone: Start: 12-24-2024 Urnls dip stick/tabl et rgnt non-auto w/o micrscp Don Hidalgo DO Work Phone: Start: 12-14-2024 US OB GROWTH Generic Ex ternal Data Provider Start: 12-12-2024 Urnls dip stick/tabl et rgnt non-auto w/o micrscp Kathie COCHRAN Work Phone: Start: 11-28-2024 Urnls dip stick/tabl et rgnt non-auto w/o micrscp Don Rocky DO Work Phone: Start: 11-16-2024 ALL CBC WITH AUTO DIFF Don Hidalgo DO Work Phone: Start: 11-14-2024 Urnls dip [...] Ref Prov Start: 07-08-2024 BOX TEST Don Fazi o DO Work Phone: Start: 11-21-2023 [...] DTaP,Tdap and Td Vaccines (6 - Tdap) [facility] Start: 11-09-2025 Screening for malign ant neoplasm of cervix Pap Smear [facility] Start: 09-23-2025 Adult BMI Screening Adult [facility] Screen ing [facility] Start: 09-23-2025 Tobacco Screening Tobacco Screening [facility] Start: 09-23-2025 End: 09-23-2025 US MFM with or without consult US MFM with or without consult Imaging Routine Polyhydramnios affecting Low-lying placenta Placenta previa in second trimester Velamentous insertion of umbilical cord in second trimester Vasa previa, single or unspecified fetus History of hemorrhage, currently in second trimester Expected: 09/23/2025 (Approximate), Expires: 09[facility]23[facility]: Comment on above: Expected: 09/23/2025 (Approximate), Expires: 09/23/2025 Start: 01-23-2025 End: 01-23-2025 Patient encounter procedure 01/23/2025 10:20 AM EDT Routine CON[facility] JAVIER [address] [place] [address] Britney Smith NP [address] [place] [address] [facility] Start: 01-14-2025 End: 01-14-2026 CULTURE, GROUP B STREP WITH SUSCEPTIBLITY CULTURE, GROUP B STREP WITH SUSCEPTIBLITY Lab Routine Third trimester ([facility]) Expected: 01/14/2025 (Approximate), Expires: 01/14/2026 [facility] Work Phone: Comment on above: Expected: 01/14/2025 (Approximate), Expires: 01/14/2026 Start: 01-14-2025 End: 07-14-2025 US biophysical profile w non stress test US biophysical profile w non stress test Imaging Routine Third trimester ([facility]) 36 weeks gestation of ([facility]) History of placental abnormality Excessive growth affecting management of , antepartum, single or unspecified fetus ([facility]) Expected: 01/14/2025 (Approximate), Expires: 07/14/2025 [facility] Comment on above: Expected: 01/14/2025 (Approximate), Expires: 07/14/2025 Start: 01-14-2025 End: 01-14-2025 Patient encounter procedure 01/14/2025 9:20 AM EDT Routine [facility] [address] [place] [phone] Britney Smith, BREAK OUT WORKER [address] [place] [phone] [facility] Start: 01-14-2025 End: 01-14-2025 Professional / ancillary services management 01/14/2025 9:00 AM EDT Ancillary Procedure [facility] [address] [facility] [place] [phone] [facility] Start: 01-06-2025 End: 01-06-2025 Patient encounter procedure [facility] Comment on above: Arrived Start: 12-24-2024 End: 04-25-2025 US for US OB follow up transabdominal approach Imaging Routine Excessive growth affecting management of , antepartum, single or unspecified fetus ([facility]) Expected: 12/24/2024, Expires: 04/25/2025 [facility] Work Phone: Comment on above: Expected: 12/24/2024 , Expires: 04/25/2025 Start: 12-24-2024 End: 12-24-2024 Patient encounter procedure [facility] Comment on above: Arrived Start: 12-16-2024 Influenza vaccination [facility] Start: 12-12-2024 End: 12-12-2024 Patient encounter procedure 12/12/2024 10:10 AM EDT Routine [facility] [address] [place] [place] [phone] Kathie Roman PA [address] [place] [address] Arrived [facility] J[facility] Comment on above: Arrived Start: 11-28-2024 End: 03-30-2025 US for US OB follow up transabdominal approach Imaging Routine Third trimester ([facility]) History of placental abnormality Excessive growth affecting management of in third trimester, single or unspecified fetus ([facility]) Expected: 11/28/2024, Expires: 03/30/2025 [facility] Work Phone: Comment on above: Expected: 11/28/2024 , Expires: 03/30/2025 Start: 11-28-2024 End: 11-28-2024 Patient encounter procedure [facility] Comment on above: Arrived Start: 11-26-2024 End: 11-26-2024 Patient encounter procedure 11/26/2024 3:00 PM EDT Office Visit [facility] [address] [place] [place] [phone] Don Hidalgo DO [address], [place] [id number] [facility] Start: 11-14-2024 End: 11-14-2024 Patient encounter procedure [facility] Comment on above: Arrived Start: 10-24-2024 End: 10-24-2024 Patient encounter procedure 10/24/2024 1:00 PM EDT Appointment [facility] [address] [place] [phone] [facility] Start: 10-17-2024 End: 10-17-2025 CBC panel - [...] mellitus screening Expected: 10/17/2024 (Approximate), Expires: 10/17/2025 [facility] Comment on above: Expected: 10/17/2024 (Approximate), Expires: 10/17/2025 Start: 10-17-2024 End: 10-17-2024 Patient encounter procedure 10/17/2024 10:10 AM EDT Routine [facility] [address] [place] [phone] Don Hidalgo, DO [address] [place] [address] [facility] Start: 10-17-2024 End: 10-17-2024 Patient encounter procedure 10/17/2024 8:10 AM EDT Routine [facility] [address] [facility] [place] [phone] Don Hidalgo, DO [address] [place] [address] Arrived [facility] Comment on above: Arrived Start: 09-23-2024 End: 09-23-2024 Patient encounter procedure [facility] Start: 09-17-2024 End: 09-17-2024 Patient encounter procedure 09/17/2024 1:30 PM EDT Routine [facility] [address] [facility] [place] [phone] Kathie Roman PA [address] [place] [address] [facility] Start: 08-20-2024 End: 10-20-2024 [...] mellitus screening Expected: 08/20/2024 (Approximate), Expires: 08/20/2025 [facility] Comment on above: Expected: 08/20/2024 (Approximate), Expires: 08/20/2025 Start: 08-20-2024 End: 08-20-2024 Patient encounter procedure 08/20/2024 10:20 AM EDT Routine [facility] [address] [facility] [place] [phone] Don Hidalgo, DO [address] [place] [address] [facility] Start: 08-05-2024 End: 08-05-2024 Patient encounter procedure 08/05/2024 2:10 PM EDT Routine [facility] [address] [place] [phone] Don Hidalgo, DO [address] [place] [address] [facility] Start: 04-12-2024 Adult BMI Screening Adult BMI Screen [facility] Start: 04-12-2024 Tobacco Screening Tobacco Screening [facility] Start: 12-17-2023 COVID-19 Vaccine ( season) COVID-19 Vaccine ( season) [facility] Start: 12-17-2023 Influenza vaccination Influenza Vacc ine (#1) [facility] Start: 11-10-2023 Screening for Chlamy annabella trachomatis Chlamydia Screening [facility] Start: 10-15-2023 Influenza vaccination Influenza Vacc ine (#1) [facility] Comment on above: Postponed from 12/16 (Patient Refused) Start: 06-07-2023 End: 06-07-2023 ambulatory 06/07/2023 10:30 AM EST Visit [facility] [address] [place] [phone] Kathie Roman PA [address] [place] [address] [facility] Start: 05-24-2023 End: 05-24-2024 CBC W Auto Differential panel - Blood CBC and differential Lab Routine Encounter for wellness examination Anemia, unspecified type Expected: 05/24/2023 (Approximate), Expires: 05/24/2024 [facility] Comment on above: Expected: 05/24/2023 (Approximate), Expires: 05/24/2024 Start: 05-24-2023 End: 05-24-2024 Comprehensive metabolic 2000 panel - Serum or Plasma Comprehensive metabolic panel Lab Routine Encounter for wellness examination Anemia, unspecified type Expected: 05/24/2023 (Approximate), Expires: 05/24/2024 [facility] Work Phone: Comment on above: Expected: 05/24/2023 (Approximate), Expires: 05/24/2024 Start: 12-16-2022 COVID-19 Vaccine ( season) COVID-19 Vaccine ( season) [facility] Start: 12-16-2022 Influenza vaccination [facility] Start: 01-31-2022 Depression Screening Depression Scre ening [facility] Start: 2018 Adult BMI Follow Up Plan Adult BMI Follow Up Plan [facility] Start: 2012 Depression Screening Depression Scre ening [facility] CHLAMYDIA TRACHOMATI S (GENITO/STI) CHLAMYDIA TRACHOMATIS (GENITO/STI) Lab Routine Vaginal discharge Ordered: 07/23/20[address] [facility] Comment on above: Ordered: 07/23/2024 Neisseria gonorrhoea e DNA [Presence] in Unspecified specimen by BOONE with probe detection Neisseria gonorrhea DNA probe, direct Lab Routine Vaginal discharge Ordered: 07/23/2024 [facility] Comment on above: Ordered: 07/23/2024 SURESWAB(R) ADVANCED VAGINITIS PLUS, TMA SURESWAB(R) ADVANCED VAGINITIS PLUS, TMA Pathology and Cytology Routine Vaginal discharge Ordered: 07/23/20[address] [facility] Work Phone: Comment on above: Ordered: 07/23/2024 Immunizations Immunization Date Immunization Notes Care Provider [facility] 06-03-2021 SARS-CoV-2 mRNA (nsesoanqnwd-xjnj-iwztz se) vaccine Darin RICHARD [facility] 05-13-2021 SARS-CoV-2 (COVID-19 ) mRNA BNT-162b2 vax Darin RICHARD [facility] 02-01-2021 Seasonal, quadrivale nt, recombinant, injectable influenza vaccine, preservative free Stephanie Sotelo NP Work Phone: [facility] 02-01-2021 influenza virus vaccine, unspecified formulation Daniella Reina MD Work Phone: [facility] 12-19-2020 diphtheria, tetanus toxoids and pertussis vaccine Daniella Reina MD Work Phone: [facility] 10-29-2019 hepatitis B vaccine, pediatric or pediatric/adolescent dosage Daniella Reina MD Work Phone: [facility] 05-14-2019 hepatitis B vaccine, adult dosage Daniella Reina MD Work Phone: [facility] 04-11-2019 hepatitis B vaccine, pediatric or pediatric/adolescent dosage Daniella Reina MD Work Phone: [facility] 04-11-2019 measles, mumps, rubella, and varicella virus vaccine Daniella Reina MD Work Phone: [facility] 11-09-2017 meningococcal ACWY vaccine, unspecified formulation Darin RICHARD [facility] 11-09-2017 meningococcal oligosaccharide (groups A, C, Y and W-135) diphtheria toxoid conjugate vaccine (MCV4O) Daniella Reina MD Work Phone: [facility] 12-08-2004 diphtheria, tetanus toxoids and acellular pertussis vaccine Daniella Reina MD Work Phone: [facility] 12-08-2004 measles, mumps and rubella virus vaccine Daniella Reina MD Work Phone: [facility] 12-08-2004 poliovirus vaccine, inactivated Daniella Reina MD Work Phone: [facility] 12-08-2004 poliovirus vaccine, unspecified formulation Darin RICHARD [facility] 09-28-2001 measles, mumps and rubella virus vaccine Daniella Reina MD Work Phone: [facility] 03-23-2001 diphtheria, tetanus toxoids and acellular pertussis vaccine, unspecified formulation Daniella Reina MD Work Phone: [facility] 03-23-2001 DTaP, unspecified formulation Darin RICHARD [facility] 03-23-2001 haemophilus influenz ae type b conjugate and Hepatitis B vaccine Daniella Reina MD Work Phone: [facility] 03-23-2001 poliovirus vaccine, inactivated Daniella Reina MD Work Phone: [facility] 03-23-2001 poliovirus vaccine, unspecified formulation Darin RICHARD [facility] 01-12-2001 diphtheria, tetanus toxoids and acellular pertussis vaccine, unspecified formulation Daniella Reina MD Work Phone: [facility] 01-12-2001 DTaP, unspecified formulation Darin RICHARD [facility] 01-12-2001 haemophilus influenz ae type b vaccine, HbOC conjugate Daniella Reina MD Work Phone: [facility] 01-12-2001 poliovirus vaccine, inactivated Daniella Reina MD Work Phone: [facility] 01-12-2001 poliovirus vaccine, unspecified formulation Darin RICHARD [facility] 2000 diphtheria, tetanus toxoids and acellular pertussis vaccine, unspecified formulation Daniella Reina MD Work Phone: [facility] 2000 DTaP, unspecified formulation Darin RICHARD [facility] 2000 haemophilus influenz ae type b conjugate and Hepatitis B vaccine Daniella Reina MD Work Phone: [facility] 2000 poliovirus vaccine, inactivated Daniella Reina MD Work Phone: [facility] 2000 poliovirus vaccine, unspecified formulation Darin RICHARD [facility] 2000 hepatitis B vaccine, pediatric or pediatric/adolescent dosage Daniella Reina MD Work Phone: [facility] NEGATED: Highlighted row has not occurred!04-11-2019 influenza, injectable, quadrivalent, preservative free Danielal Reina MD Work Phone: [facility] Comment on above: Deferred: Patient de cision Payers Date Payer Category Payer Private Health Insurance [id number] 2022 Blue [employer] Blue [employer] BCBS [id number] 2022 Blue Cross Blue Shie ld Managed Care - PPO ANTHEM [id number] 2022 Unknown [id number] 2021 Unknown [id number] 2000 Unknown [id number] 2.16.840.1.490284.3.579. 2.593 2000 Unknown [id number] 2.16.840.1.459379.3.579. 2.727 2000 Unknown [id number] 2.16.840.1.791891.3.579. 2.1286 2000 Unknown [id number] 2.16.840.1.710468.3.579. 2.128 2000 Unknown [id number] 2.16.840.1.883779.3.579. 2.727 2000 Unknown [id number] 2.16.840.1.934763.3.579. 2.727 2000 Unknown [id number] 2.16.840.1.655316.3.579. 2.128 2000 Unknown [id number] 2.16.840.1.425000.3.579. 2.1258 2000 Unknown [id number] 2.16840.1.794475.3.579. 2.1258 2000 Unknown [id number] 2.16840.1.947829.3.579. 2.1258 2000 Unknown [id number] 2.16.840.1.389569.3.579. 2.1258 2000 Unknown [id number] 2.16.840.1.424702.3.579. 2.1258 2000 Unknown [id number] 2.16.840.1.079778.3.579. 2.1258 2000 Unknown [id number] 2.16840.1.740185.3.579. 2.1258 2000 Unknown [id number] 2.16.840.1.614108.3.579. 2.1258 2000 Unknown [id number] 2.16.840.1.244656.3.579. 2.1258 2000 Unknown [id number] 2.16.840.1.528789.3.579. 2.1258 2000 Unknown [id number] 2.16.840.1.999952.3.579. 2.1258 2000 Unknown [id number] 2.16.840.1.384250.3.579. 2.1259 2000 Unknown [id number] 2.16.840.1.860141.3.579. 2.1259 1959 Unknown [id number] Social History Date Type Detail Facility Start: 11-08-2022 End: 10-07-2024 Tobacco smoking status NHIS Never smoked tobacco [facility] Start: 11-08-2022 End: 04-12-2023 Tobacco use and exposure Smokeless tobacco non-user [facility] Start: 04-12-2023 End: 04-18-2023 Alcohol intake Lifetime non-drinker (finding) [facility] Start: 05-17-2023 End: 05-24-2023 History of Social function [facility] Start: 05-17-2023 End: 05-24-2023 Humiliation, Afraid, Rape, and Kick questionnaire [HARK] [facility] Within the last year , have you been afraid of your partner or ex-partner? No [facility] Are you now , , , , never or living with a partner? [facility] How often to you hav e a drink containing alcohol? 2-4 times a month [facility] How many standard drinks containing alcohol do you have on a typical day? 3 or 4 [facility] How often do you hav e 6 or more drinks on 1 occasion? Less than monthly [facility] How hard is it for y ou to pay for the very basics like food, housing, medical care, and heating Not hard at all [facility] Do you feel stress - tense, restless, nervous, or anxious, or unable to sleep at night because your mind is troubled all the time - these days [OSQ] Not at all [facility] (I/We) worried otilia er (my/our) food would run out before (I/we) got money to buy more. Never true [facility] Start: 08-15-2022 [facility] Start: 2000 Sex Assigned At Female [facility] Start: 10-07-2022 Gender identity Identifies as female gender (finding) [facility] Start: 10-07-2022 Sexual orientation Heterosexual (fin laura) [facility] Start: 05-24-2023 End: 01-14-2025 Alcohol intake Ex-drinker (finding) [facility] Are you now , , , , never or living with a partner? Living with partner [facility] How hard is it for y ou to pay for the very basics like food, housing, medical care, and heating Not very hard [facility] Do you feel stress - tense, restless, nervous, or anxious, or unable to sleep at night because your mind is troubled all the time - these days [OSQ] Very much [facility] Start: 01-31-2021 Education 21 [facility] Start: 11-18-2014 Sex Female (finding) [facility] Sexual Orientation [facility] NEGATED: Highlighted rowStart: NINF History of tobacco use Passive smoker [facility] Medical Equipment Procedure Code Equipment Code Equipment Origin al Text Equipment Identifier Dates Check blood suga r 4-5 times daily, fasting and 1 hour after meals. Use as directed. Dispense per insurance preference. [id number] Start: 04-12-2023 1 strip by miscellaneous route in the morning and 1 strip at noon and 1 strip in the evening and 1 strip before bedtime. Check blood sugar 4-5 times daily, fasting and 1 hour after meals. Use as directed. Dispense per insurance preference.. [id number] Start: 04-12-2023 Clinical Notes 04-12-2023 to 01-14-2025 Britney Smith NP - 01/14/2025 9:20 AM DIMAS [...] Gluconate (IRON 27 PO) 1 each, Daily Wdpkemrs-Rsz-Fx-FA (PRE-SIGIFREDO PO) 1 each, Daily ALLERGIES No Known Allergies PROBLEMS Active Ambulatory Problems Diagnosis Date Noted History of placental abnormality 12/24/2024 Resolved Ambulatory Problems Diagnosis Date Noted Obesity affecting in second trimester ([facility]) 01/27/2023 Velamentous insertion of umbilical cord in second trimester ([facility]) 01/27/2023 Past Medical History: Diagnosis Date 6 weeks follow-up ([facility]) HISTORY PAST MEDICAL HISTORY SOCIAL HISTORY Past Medical History: Diagnosis Date 6 weeks follow-up ([facility]) Social History Tobacco Use Smoking status: [...] nursing note reviewed. Exam conducted with a rn plastic surgery present. Vitals: Estimated body mass index is 39.48 kg/m as calculated from the following: Height as of 24: 5' 4 . Weight as of this encounter: 230 lb. BP: 122/68 Patient's last menstrual period was 05/06/2024. ASSESSMENT & PLAN ICD-10-CM 1. Third trimester ([facility]) Z34.93 POCT urinalysis dipstick manually resulted CULTURE, GROUP B STREP WITH SUSCEPTIBLITY CULTURE, GROUP B STREP WITH SUSCEPTIBLITY 2. 36 weeks gestation of ([facility]) Z3A.36 Patient is doing well but [...] by Donna Mcallister MA on behalf of: Britney Smith NP documented in this encounter [facility] 01-06-2025 History of Presen t illness Narrative Reason for Appointment: Patient ID: Hesham Avalos is a 24 y.o. female who presents for Routine Visit Patient presents today for Return OB appointment. MEDICATIONS Current Outpatient Medications Medication Instructions Ferrous Gluconate (IRON 27 PO) 1 each, Daily Myuzjnai-Vxy-Zp-FA (PRE- PO) 1 each, Daily ALLERGIES No Known Allergies PROBLEMS Active Ambulatory Problems Diagnosis Date Noted History of placental abnormality 12/24/2024 Resolved Ambulatory Problems Diagnosis Date Noted Obesity affecting in second trimester ([facility]) 01/27/2023 Velamentous insertion of umbilical cord in second trimester ([facility]) 01/27/2023 Past Medical History: Diagnosis Date 6 weeks follow-up ([facility]) HISTORY PAST MEDICAL HISTORY SOCIAL HISTORY Past Medical History: Diagnosis Date 6 weeks follow-up ([facility]) Social History Tobacco Use Smoking status: [...] ASSESSMENT & PLAN ICD-10-CM 1. Third trimester ([facility]) Z34.93 POCT urinalysis dipstick manually resulted 2. 35 weeks gestation of ([facility]) Z3A.35 Return OB: Patient presents today [...] of: DIMAS Cormier documented in this encounter [facility] 12-24-2024 History of Presen t illness Narrative Reason for Appointment: Patient ID: Hesham Avalos is a 24 y.o. female who presents for Routine Visit Patient presents today for Return OB appointment. MEDICATIONS Current Outpatient Medications Medication Instructions Ferrous Gluconate (IRON 27 PO) 1 each, Daily Mqiiprtc-Hpq-Te-FA (PRE- PO) 1 each, Daily ALLERGIES No Known Allergies PROBLEMS Active Ambulatory Problems Diagnosis Date Noted History of placental abnormality 12/24/2024 Resolved Ambulatory Problems Diagnosis Date Noted Obesity affecting in second trimester ([facility]) 01/27/2023 Velamentous insertion of umbilical cord in second trimester ([facility]) 01/27/2023 Past Medical History: Diagnosis Date 6 weeks follow-up ([facility]) HISTORY PAST MEDICAL HISTORY SOCIAL HISTORY Past Medical History: Diagnosis Date 6 weeks follow-up ([facility]) Social History Tobacco Use Smoking status: [...] nursing note reviewed. Exam conducted with a rn plastic surgery present. Vitals: Estimated body mass index is 39.31 kg/m as calculated from the following: Height as of 11/21/23: 5' 4 . Weight as of this encounter: 229 lb. BP: 124/70 Patient's last menstrual period was 05/06/2024. ASSESSMENT & PLAN ICD-10-CM 1. Third trimester ([facility]) Z34.93 POCT urinalysis dipstick manually resulted 2. 33 weeks gestation of ([facility]) Z3A.33 3. History of placental abnormality [...] Don Hidalgo DO documented in this encounter [facility] 12-12-2024 History of Presen t illness Narrative Reason for Appointment: Patient ID: Hesham Avalos is a 24 y.o. female who presents for Routine Visit Patient presents today for Return OB appointment. MEDICATIONS Current Outpatient Medications Medication Instructions Ferrous Gluconate (IRON 27 PO) 1 each, Daily Carsoqzm-Xrv-Xi-FA (PRE- PO) 1 each, Daily ALLERGIES No Known Allergies PROBLEMS Active Ambulatory Problems Diagnosis Date Noted No Active Ambulatory Problems Resolved Ambulatory Problems Diagnosis Date Noted Obesity affecting in second trimester ([facility]) 01/27/2023 Velamentous insertion of umbilical cord in second trimester ([facility]) 01/27/2023 Past Medical History: Diagnosis Date 6 weeks follow-up ([facility]) HISTORY PAST MEDICAL HISTORY SOCIAL HISTORY Past Medical History: Diagnosis Date 6 weeks follow-up ([facility]) Social History Tobacco Use Smoking status: [...] ASSESSMENT & PLAN ICD-10-CM 1. Third trimester ([facility]) Z34.93 POCT urinalysis dipstick manually resulted 2. 31 weeks gestation of ([facility]) Z3A.31 Return OB: Patient presents today [...] of: DIMAS Cormier documented in this encounter [facility] 11-28-2024 History of Presen t illness Narrative Reason for Appointment: Patient ID: Hesham Avalos is a 24 y.o. female who presents for Routine Visit Patient presents today for Return OB appointment. MEDICATIONS Current Outpatient Medications Medication Instructions Ferrous Gluconate (IRON 27 PO) 1 each, Daily Fucaizre-Ezx-Wb-FA (PRE- PO) 1 each, Daily ALLERGIES No Known Allergies PROBLEMS Active Ambulatory Problems Diagnosis Date Noted No Active Ambulatory Problems Resolved Ambulatory Problems Diagnosis Date Noted Obesity affecting in second trimester ([facility]) 01/27/2023 Velamentous insertion of umbilical cord in second trimester ([facility]) 01/27/2023 Past Medical History: Diagnosis Date 6 weeks follow-up ([facility]) HISTORY PAST MEDICAL HISTORY SOCIAL HISTORY Past Medical History: Diagnosis Date 6 weeks follow-up ([facility]) Social History Tobacco Use Smoking status: [...] nursing note reviewed. Exam conducted with a rn plastic surgery present. Vitals: Estimated body mass index is 38.62 kg/m as calculated from the following: Height as of 11/21/23: 5' 4 . Weight as of this encounter: 225 lb. BP: 118/74 Patient's last menstrual period was 05/06/2024. ASSESSMENT & PLAN ICD-10-CM 1. Third trimester ([facility]) Z34.93 POCT urinalysis dipstick manually resulted 2. 29 weeks gestation of ([facility]) Z3A.29 Patient presents today for [...] Don Hidalgo DO documented in this encounter [facility] 11-14-2024 History of Presen t illness Narrative Reason for Appointment: Patient ID: Hesham Avalos is a 24 y.o. female who presents for Routine Visit Patient presents today for Return OB appointment. MEDICATIONS Current Outpatient Medications Medication Instructions Ferrous Gluconate (IRON 27 PO) 1 each, Daily Sjpntanb-Ygq-Jx-FA (PRE-SIGIFREDO PO) 1 each, Daily ALLERGIES No Known Allergies PROBLEMS Active Ambulatory Problems Diagnosis Date Noted No Active Ambulatory Problems Resolved Ambulatory Problems Diagnosis Date Noted Obesity affecting in second trimester ([facility]) 01/27/2023 Velamentous insertion of umbilical cord in second trimester ([facility]) 01/27/2023 Past Medical History: Diagnosis Date 6 weeks follow-up ([facility]) HISTORY PAST MEDICAL HISTORY SOCIAL HISTORY Past Medical History: Diagnosis Date 6 weeks follow-up ([facility]) Social History Tobacco Use Smoking status: [...] ASSESSMENT & PLAN ICD-10-CM 1. Second trimester ([facility]) Z34.92 POCT urinalysis dipstick manually resulted 2. 27 weeks gestation of ([facility]) Z3A.27 Return OB: Patient presents today [...] of: DIMAS Cormier documented in this encounter [facility] 10-17-2024 History of Presen t illness Narrative Reason for Appointment: Patient ID: Hesham Avalos is a 24 y.o. female who presents for Routine Visit Patient presents today for Return OB appointment. MEDICATIONS Current Outpatient Medications Medication Instructions Ferrous Gluconate (IRON 27 PO) 1 each, Daily Qvhucdby-Edb-Lg-FA (PRE- PO) 1 each, Daily ALLERGIES No Known Allergies PROBLEMS Active Ambulatory Problems Diagnosis Date Noted No Active Ambulatory Problems Resolved Ambulatory Problems Diagnosis Date Noted Obesity affecting in second trimester ([facility]) 01/27/2023 Velamentous insertion of umbilical cord in second trimester ([facility]) 01/27/2023 Past Medical History: Diagnosis Date 6 weeks follow-up ([facility]) HISTORY PAST MEDICAL HISTORY SOCIAL HISTORY Past Medical History: Diagnosis Date 6 weeks follow-up ([facility]) Social History Tobacco Use Smoking status: [...] nursing note reviewed. Exam conducted with a rn plastic surgery present. Vitals: Estimated body mass index is 38.66 kg/m as calculated from the following: Height as of 11/21/23: 5' 4 . Weight as of this encounter: 225 lb 4 oz. BP: 114/58 Patient's last menstrual period was 05/06/2024. ASSESSMENT & PLAN ICD-10-CM 1. Second trimester ([facility]) Z34.92 POCT urinalysis dipstick manually resulted 2. 23 weeks gestation of ([facility]) Z3A.23 3. Diabetes mellitus screening Z13.1 CBC Glucose tolerance, 1 hour CBC Glucose tolerance, 1 hour Patient presents today for a routine obstetrics appointment. Patient is currently 23w3d with a Estimated Date of Delivery: 02/10/25. Patient given orders for CBC/1hour gtt and is scheduled for with [facility] for repeat US. Patient to return to clinic in 4 weeks for return OB appointment. Documented by Franci Boyd LPN on behalf of: Don Hidalgo DO documented in this encounter [facility] 10-07-2024 Hospital Discharg e instructions Patient Education [...] care provider who specializes in women's health (wildlife enforcement major). How is this treated? Treatment for this [...] partner about your condition. General instructions Take peqz-sdp-wyhdjbw and prescription medicines only as told by [...] sexual activity until your symptoms improve. Take hdwq-ydr-uuegseh and prescription medicines only as told by [...] provider. Document Revised: 2021 Document Reviewed: 2021 [employer] Patient Education 2023 [email or web address]. Follow Up Care 08/08/2024 12:40:44 With:TINO MACK, Darin Cummins, URL Address: [facility] [address], [place] [address]- [phone] When: only if needed [facility] 10-07-2024 Note Patient Education Obstetrics and [...] care provider who specializes in women's health (wildlife enforcement major). How is this treated? Treatment for this [...] about your condition. General instructions ??? Take mihd-ogq-evrhgym and prescription medicines only as told by [...] activity until your symptoms improve. ??? Take iqfk-ogl-dltcyor and prescription medicines only as told by your health care provider. ??? Contact a health care provider if your symptoms get worse or do not improve with treatment. ??? Keep all follow-up visits. This is important. This information is not intended to replace (more content not included)... [facility] 09-23-2024 History of Presen t illness [...] GENDER Have you been seen here at [facility] in a previous ? No Recent ER visits or hospitalizations? No Bring blood sugar log or meter with you today? (Please bring them with you for every visit at [facility]) n/a Flu vaccine (Feb-June)? No Any [...] insurance preference.., Disp: 100 each, Rfl: 1 [id number]-kkeyk-ew0 (DUET DHA WITH OMEGA-3) 25 mg iron-1 mg -400 mg combo pack, Take by mouth., Disp: , Rfl: ferrous sulfate (HIGH POTENCY IRON) 27 mg iron tablet, Take by mouth. (Patient not taking: Reported on 09/23/2024), Disp: , Rfl: ylv731-ypvn-jbopo-pn5 25 mg iron-1 mg -400 mg combo [...] 39 weeks 8. Delivery method preferred vaginal. [place] C/S for usual obstetrical indications TIME OF CONSULTATION: We spent 30 minutes with the patient, >50% in discussion and counseling, coordination of care which was xtmm-je-wixr. documented in this encounter [facility] 09-17-2024 History of Presen t illness Narrative Reason for Appointment: Patient ID: Hesham Avalos is a 24 y.o. female who presents for Routine Visit Patient presents today for Acute Visit. and Return OB appointment. MEDICATIONS Current Outpatient Medications Medication Instructions Ferrous Gluconate (IRON 27 PO) 1 each, Daily Wtmoziae-Nwb-Sj-FA (PRE- PO) 1 each, Daily ALLERGIES No [...] Gluconate (IRON 27 PO) 1 each, Daily Oxccrtvs-Nyv-Nu-FA (PRE- PO) 1 each, Daily ALLERGIES No [...] nursing note reviewed. Exam conducted with a rn plastic surgery present. Vitals: Estimated body mass index is [...] of: DIMAS Cormier documented in this encounter [facility] 08-20-2024 History of Presen t illness Narrative Reason for Appointment: Patient ID: Hesham Avalos is a 24 y.o. female who presents for Routine Visit Patient presents today for Return OB appointment. MEDICATIONS Current Outpatient Medications Medication Instructions Ferrous Gluconate (IRON 27 PO) 1 each, Daily Wbkruyhx-Ekm-Rg-FA (PRE- PO) 1 each, Daily ALLERGIES No [...] nursing note reviewed. Exam conducted with a rn plastic surgery present. Vitals: Estimated body mass index is [...] Date of Delivery: 02/10/25. Pt to see m in September for anatomy scan. Pt given early one hour. Pt to return in 4 weeks for scheduled ob appt. Pt advised to take a baby aspirin. Documented by Brittany Christensen LPN on behalf of: Don Hidalgo DO documented in this encounter [facility] 08-05-2024 Note Patient Education Urology Cystoscopy Cystoscopy [...] including vitamins, herbs, eye drops, creams, and kzhk-xtu-ubniadb medicines. ??? Any problems you or family [...] tells you to take them. ??? Taking ctob-tam-xpnpiwf medicines, vitamins, herbs, and supplements. Tests You [...] these instructions at home: Medicines ??? Take xapa-izq-skaqxmm and prescription medicines only as told by [...] (biopsy) during your (more content not included)... [facility] 07-23-2024 History of Presen t illness Narrative Reason for Appointment: Patient ID: Hesham Avalos is a 23 y.o. female who presents for No chief complaint on file. Patient presents today for Return OB appointment. MEDICATIONS Current Outpatient Medications Medication Instructions Ferrous Gluconate (IRON 27 PO) 1 each, Daily Kxwpaohm-Itm-Tr-FA (PRE- PO) 1 each, Daily ALLERGIES No [...] nursing note reviewed. Exam conducted with a rn plastic surgery present. Vitals: Estimated body mass index is [...] or undercooked meat, and stay away from [facility]. Patient has been consulted regarding any further do's and don'ts of . Patient voiced understanding and all questions and concerns were answered. Cultures obtained. Pt being referred to [facility] for h/o placental abnormality (vasa previa). Pt has cyst on urethra- referred to urologist Orders Placed This Encounter Procedures CHLAMYDIA TRACHOMATIS (GENITO/STI) Neisseria gonorrhea DNA probe, direct POCT urinalysis dipstick manually resulted Follow Up: Patient is to return in 4 weeks for routine OB appointment. Documented by Brittany Christensen LPN on behalf of: Don Hidalgo DO documented in this encounter [facility] 05-24-2023 History of Presen t illness Narrative Hesham Avalos is a 22 y.o. 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 SUBJECTIVE: MEDICATIONS: Current Outpatient Medications Medication Instructions Bbchwk-JkPxdw-Mkkri-FA-Mitchell 3 (Duet DHA 400) 25-1 & 400 [...] tenderness or frontal sinus tenderness. Mouth/Throat: Lips: [place]. Mouth: Mucous membranes are moist. Pharynx: Oropharynx [...] follow-ups on file. documented in this encounter 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 Patient does have ultrasound and office visit scheduled with us. Thank you for allowing me to participate in the care of Hesham Avalos. If there any questions please do not hesitate to contact us. Daniella Reina MD Maternal- Medicine [place] [address] [facility] [address] [place] [address] [facility], the CDC, and other organizations representing maternal and public health professionals recommend that , , and lactating people and those considering receive the COVID-19 vaccination. Vaccination is the best method to reduce maternal and complications of SARS-CoV-2 infection. This document was created with [employer] technology. Though I make every effort to review the dictation as it is transcribed, on occasion the spoken word can be misinterpreted by the technology leading to inappropriate words, phrases, or sentences. This note is addressed to the requesting provider as a consultation for clinical guidance. Specific medical abbreviations are occasionally used and those are generally approved by the [place]?Board of?Obstetrics and?Gynecology?as well as?[employer] abbreviations. The above plan of care was based solely on the diagnoses for which a consultation was requested. ?More frequent testing may be indicated based on her other medical/obstetrical conditions. The management of other or medical conditions is beyond the scope of requested consultation and will continue to be followed by the primary fire and explosion investigator or primary care provider. Note to patient: [...] of the practitioner. documented in this encounter [facility] Evaluation + Plan note No data available for this section [facility] [employer] Evaluation note Diagnosis Encounter for wellness examination- Primary Anemia, unspecified type documented in this encounter [facility] HealthcareEvaluation note* Diagnosis 35 weeks gestation of - Primary Polyhydramnios affecting documented in this encounter [facility] SystemEvaluation note* Diagnosis 11 weeks gestation of First trimester state, incidental History of placental abnormality Vaginal discharge Leukorrhea, not specified as infective Urethral cyst Other specified disorders of urethra documented in this encounter [facility] HealthcareEvaluation note* Diagnosis Second trimester state, incidental 15 weeks gestation of Diabetes mellitus screening Screening for diabetes mellitus documented in this encounter [facility] HealthcareEvaluation note* Diagnosis Obesity affecting in second trimester, unspecified obesity type- Primary documented in this encounter [facility] System[facility] note* Diagnosis Polyhydramnios affecting - Primary Low-lying placenta Hemorrhage from placenta previa, unspecified as to episode of care Placenta previa in second trimester Velamentous insertion of umbilical cord in second trimester Vasa previa, single or unspecified fetus History of hemorrhage, currently in second trimester documented in this encounter [facility] SystemEvaluation note* Diagnosis Second trimester state, incidental 19 weeks gestation of Screening, , for anatomic survey Encounter for anatomic survey documented in this encounter [facility] note* Diagnosis Second trimester (HHS-HCC) state, incidental [...] available for this section [facility] Purpose Family History No Family History [...] To Contact Daniella Reina MD [address] [place] [address] Referral ID Status Reason Start Date Expiration Date V isits Requested Visits Authorized [id number] Pending Review 1 1 Referral ID Status Reason Start Date Expiration Date V isits Requested Visits Authorized [id number] Pending Review 1 1 Additional Source Comments INFORMATION SOURCE (unrecogn ized section and content) DATE CREATED AUTHOR 10/05/2018 [facility] DATE CREATED AUTHOR AUTHOR'S ORGANIZ ATION 04/13/2022 [facility] DATE CREATED AUTHOR AUTHOR'S ORGANIZ ATION 07/27/2024 [facility] DATE CREATED AUTHOR AUTHOR'S ORGANIZ ATION 09/24/2024 [place] DATE CREATED AUTHOR AUTHOR'S ORGANIZ ATION 10/08/2024 [facility] DATE CREATED AUTHOR AUTHOR'S ORGANIZ ATION 10/29/2024 [facility] DATE CREATED AUTHOR AUTHOR'S ORGANIZ ATION 01/19/2025 [facility] Specialists [employer] Care Teams (unrecognized sec tion and content) Sales Order Clerk Relationship Specialty Start Date End Date Taisha Pena MD [address] [place] [address] PCP - General Family Medicine 05/03/23 Sales Order Clerk Relationship Specialty Start Date End Date Taisha Pena MD [address] [facility] [place] [address] PCP - General Family Medicine 05/03/23 Sales Order Clerk Relationship Specialty Start Date End Date Taisha Pena MD [address] [facility] [place] [address] PCP - General Family Medicine 05/03/23 Sales Order Clerk Relationship Specialty Start Date End Date Taisha Pena MD [address] [place] [address] PCP - General Family Medicine 05/03/23 Sales Order Clerk Relationship Specialty Start Date End Date Taisha Pena MD [address] [place] [address] PCP - General Family Medicine 05/03/23 Sales Order Clerk Relationship Specialty Start Date End Date Taisha Pena MD [address] [place] [address] PCP - General Family Medicine 05/03/23 Sales Order Clerk Relationship Specialty Start Date End Date Taisha Pena MD [address] [place] [address] PCP - General Family Medicine 05/03/23 Sales Order Clerk Relationship Specialty Start Date End Date Taisha Pena MD [address] [place] [address] PCP - General Family Medicine 05/03/23 Stephanie Sotelo NP [address] [place] [address] PCP - [place] [employer] 07/16/24 Sales Order Clerk Relationship Specialty Start Date End Date Taisha Pena MD [address] [place] [address] PCP - General Family Medicine 05/03/23 Stephanie Sotelo NP [address] [place] [address] PCP - [place] [employer] 07/16/24 Sales Order Clerk Relationship Specialty Start Date End Date Taisha Pena MD [address] [place] [address] PCP - General Family Medicine 05/03/23 Stephanie Sotelo NP [address] [place] [address] PCP - [place] [employer] 07/16/24 Sales Order Clerk Relationship Specialty Start Date End Date Taisha Pena MD [address] [place] [address] PCP - General Family Medicine 05/03/23 Stephanie Sotelo BREAK OUT WORKER [address] [place] [address] PCP - [place] [employer] 07/16/24 Sales Order Clerk Relationship Specialty Start Date End Date Taisha Pena MD [address] [facility] [address] PCP - General Family Medicine 05/03/23 Stephanie Sotelo, BREAK OUT WORKER [address] [facility] [place] [address] PCP - [place] [employer] 07/16/24 Sales Order Clerk Relationship Specialty Start Date End Date Taisha Pena MD [address] [place] [address] PCP - General Family Medicine 05/03/23 Stephanie Sotelo, BREAK OUT WORKER [address] [place] [address] PCP - [place] [employer] 07/16/24 Reason for Visit (unrecogniz ed section [...] ON THE PRIMARY CLINICAL RECORDS. [facility] [employer] [facility]. provides no warranty or guarantee of the accuracy or completeness of information in this document.
== END 2025-01-22 08:20 | disposition home or self-care (01) ==
LOC: FBCO 07:51 → FBC 07:52
PROVIDERS: PCP Family Medicine; Visit Provider Obstetrics & Gynecology
DX: O26.893 Other specified pregnancy related conditions, third trimester (principal); Z3A.37 37 weeks gestation of pregnancy
CPT/HCPCS: 59025

== ENCOUNTER 2025-01-25 09:59 | Outpatient (OUT) | payer BC, SELFPAY ==
--- OUTSIDE RECORDS SUMMARY | 2025-01-25 10:02 | XMS_ITS | CCD ---
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 Active Tgknfe-AvEovs-Qvdom-FA-[place] 3 (Duet DHA 400) 25-1 & 400 MG misc (2 sources) Qxpxzq-AqJkvo-Vy kpn-JG-Jzgnj 3 (Duet DHA 400) 25-1 & 400 MG misc Take by mouth. 0 Active Mdtguofu-Wpv-Ch-FA (PRE- PO) (20 sources) take 1 dose by mouth once daily Ghzbfaoa-Hrm-Bh-FA (PRE- PO) Take 1 each by mouth Daily Active Multivitamins (1 source) Start : 07-31 take 1 tablet by mouth once daily Multivitamins 1 tab(s), Oral, Daily, Refill(s) 0 Start Date: 07/31/24 Status: Ordered Repeat number: 1 bkp467-dyor-hibbl-l m3 (DUET DHA WITH OMEGA-3) 25 mg iron-1 mg -400 mg combo pack (4 sources) bae902- juuf-mhazm-dv8 (DUET DHA WITH OMEGA-3) 25 mg iron-1 mg -400 mg combo pack Take by mouth. Active frs370- pjsv-cyffd-be2 (DUET DHA WITH OMEGA-3) 25 mg iron-1 mg -400 mg combo pack Take by mouth. 0 Active vrj697-teby-edgvj-x m3 25 mg iron-1 mg -400 mg combo pack (4 sources) wzo576- ihtn-itqkl-sc4 25 mg iron-1 mg -400 mg combo pack Take by mouth. Active gyi613- huyz-cezhx-eq1 25 mg iron-1 mg -400 mg combo [...] 07-23-2024 Episodic Other and delivery including normal (20 sources) First trimester ; Translations: [Encounter for [...] of ] 07-23-2024 Episodic Residual codes; unclassified (19 sources) H/O: Disorder; Translations: [Personal history of [...] [36 weeks gestation of ] 01-14-2025 Episodic Residual codes; unclassified (2 sources) Gestation period, 37 weeks; Translations: [37 weeks gestation of ] 01-23-2025 Episodic Past or Other Problems Problem Classification [...] Range Facility Urinalysis macro (dipstick) panel (U)on 01-23-2025 Bilirubin, UA Negative Negative - 4(70) +++ mg/dL [facility] Blood, UA Positive Negative - 50 Eulogio/mcL [facility] Comment on above: 3+ Clarity, UA Clear [facility] re Color, UA Yellow [facility] e Glucose, UA Negative Negative - 1999(110) ++++ mg/dL [facility] Interpretation and review of laboratory results Abnormal [facility] Ketones, UA Negative Negative - 160(16) ++++ mg/dL [facility] Leukocytes, UA Negative Negative - 500+++ Rufina/mcL [facility] Nitrite, UA Negative Negative - Positive [facility] pH, UA 6.5 5 - 9 [facility] Protein, UA Negative Negative - 1999(20) ++++ mg/dL [facility] Spec Grav, UA 1.02 1 - 1.03 [facility] Urobilinogen, UA 0.2 0.2 - 12 mg/dL [facility] STREP GP B CULTURE+RFLXon STREP GP B CULTURE+RFLX Strep Gp B Culture+Rflx [facility] STREP GP B CULTURE+RFLX Negative [facility] STREP GP B CULTURE+RFLX Centers for Disease Control and Prevention (CDC) and [facility] STREP GP B CULTURE+RFLX [employer] [facility] [...] CULTURE+RFLX isolates from penicillin-allergic women who are [facility] STREP GP B CULTURE+RFLX considered a high risk for anaphylaxis. Treatment with [facility] STREP GP B CULTURE+RFLX vancomycin without additional testing is warranted if [facility] STREP GP B CULTURE+RFLX resistance to clindamycin is noted. [facility] STREP GP B CULTURE+RFLX [facility] ST[facility]P GP B CULTURE+RFLX [address] [place] [address] [phone] [facility] Healthcare STREP GP B CULTURE+RFLX Extractor Operator: Andrade Curry PhD, Phone: [phone] [facility] e US OB BPP W NON-STRESS on 01-18-[address] [address] Ultrasound Report Signed Patient: HESHAM AVALOS MR#: [id number] : 2000 Acct:[id number] Age/Sex: 24 / F ADM Date: 01/18/25 Loc: US Attending Dr: Britney Smith Ordering Physician: Britney Smith Date of Service: 01/18/25 Procedure(s): US OB BPP w non-stress Accession Number(s): [id number] cc: Britney Smith; TAISHA PENA The [place] [address] Patient Name: HESHAM AVALOS MRN: [facility]:[id number] date: 2000 Sex: F Assigned Patient Location: [facility] Current Patient Location: Accession/Order Number: [id number] Exam Date: 01/18/2025 10:14 Report Date: 01/18/2025 12:13 At the request of: BRITNEY SMITH Procedure: US OB BPP w non-stress Biophysical profile. Reason for exam: Excessive growth COMPARISON: 12/14/2024 TECHNIQUE: Transabdominal imaging of the gravid uterus was obtained. FINDINGS: The retail account specialist reports a BPP of 8 out of 8. ZEB is normal at 17.2 cm. heart rate 158 bpm. US/US OB BPP w non-stress IMPRESSION: BPP 8 out of 8. Impression dictated by: Wayne Murray Jr., D.O. 01/18/2025 12:13 PM Dictation Location: [place] [address] Electronically authenticated by: [id number] Y Date: 01/18/2025 12:13 Dictated By: Wayne Murray M.D. Signed By: 01/18/25 1216 DD/ 1213 TD/TT: Pulmonologist: [facility] Radiology, Radiologist, MD - 01/18/2025 [place] [address] Ultrasound Report Signed Patient: HESHAM AVALOS MR#: [id number] : 2000 Acct:[id number] Age/Sex: 24 / F ADM Date: 01/18/25 Loc: US Attending Dr: Britney Smith Ordering Physician: Britney Smith Date of Service: 01/18/25 Procedure(s): US OB BPP w non-stress Accession Number(s): [id number] cc: Britney Smith; TAISHA PENA [address] [address] Patient Name: HESHAM AVALOS MRN: [id number] date: 2000 Sex: F Assigned Patient Location: [facility] Current Patient Location: Accession/Order Number: [id number] Exam Date: 01/18/2025 10:14 Report Date: 01/18/2025 12:13 At the request of: BRITNEY SMITH Procedure: US OB BPP w non-stress Biophysical profile. Reason for exam: Excessive growth COMPARISON: 12/14/2024 TECHNIQUE: Transabdominal imaging of the gravid uterus was obtained. FINDINGS: The retail account specialist reports a BPP of 8 out of 8. ZEB is normal at 17.2 cm. heart rate 158 bpm. US/US OB BPP w non-stress IMPRESSION: BPP 8 out of 8. Impression dictated by: Wayne Murray Jr., D.O. 01/18/2025 12:13 PM Dictation Location: [place] [address] Electronically authenticated by: [id number] Y Date: 01/18/2025 12:13 Dictated By: Wayne Murray M.D. Signed By: 01/18/25 1216 DD/ 1213 TD/TT: Pulmonologist: [facility] [employer] Radiology Study observation (narrative) [facility] US OB BPP W NON-STRESS Ordered By: Radiologist Radiology on 01-18-2025 [facility] [employer] Work Phone: US OB FOLLOW UP [...] UA Negative Negative - 4(70) +++ mg/dL [facility] Blood, UA Negative Negative - 50 Eulogio/mcL [facility] Clarity, UA Clear [facility] re Color, UA Yellow [facility] Health[facility] e Glucose, UA Negative Negative - 1999(110) ++++ mg/dL [facility] Interpretation and review of laboratory results Abnormal [facility] Ketones, UA Negative Negative - 160(16) ++++ mg/dL [facility] Leukocytes, UA Negative Negative - 500+++ Rufina/mcL [facility] Nitrite, UA Negative Negative - Positive [facility] pH, UA 6 5 - 9 [facility] Health[facility] e Protein, UA 1+ Negative - 1999(20) ++++ mg/dL [facility] Spec Grav, UA 1.02 1 - 1.03 [facility] care Urobilinogen, UA 1.0 0.2 - 12 mg/dL [facility] Urinalysis macro (dipstick) panel (U)on 01-06-2025 Bilirubin, UA Positive Negative - 4(70) +++ mg/dL [facility] Healthcare Comment on above: 1+ Blood, UA Negative Negative - 50 Eulogio/mcL [facility] Clarity, UA Clear [facility] re Color, UA Yellow [facility] Glucose, UA Negative Negative - 1999(110) ++++ mg/dL [facility] Interpretation and review of laboratory results Abnormal [facility] Ketones, UA Positive Negative - 160(16) ++++ mg/dL [facility] Comment on above: Trace Leukocytes, UA Positive Negative - 500+++ Rufina/mcL [facility] Comment on above: 1+ Nitrite, UA Negative Negative - Positive [facility] pH, UA 6 5 - 9 [facility] Protein, UA Positive Negative - 1999(20) ++++ mg/dL [facility] Comment on above: 1+ Spec Grav, UA 1.025 1 - 1.03 [facility] Urobilinogen, UA 0.2 0.2 - 12 mg/dL [facility] Healthcare [facility] Urinalysis macro (dipstick) panel (U)on 12-24-2024 Bilirubin, UA Negative Negative - 4(70) +++ mg/dL [facility] Blood, UA Negative Negative - 50 Eulogio/mcL [facility] Clarity, UA Clear [facility] Color, UA Yellow [facility] Glucose, UA Negative Negative - 1999(110) ++++ mg/dL [facility] Interpretation and review of laboratory results Abnormal [facility] Ketones, UA Negative Negative - 160(16) ++++ mg/dL [facility] Healthcare Leukocytes, UA Negative Negative - 500+++ Rufina/mcL [facility] Nitrite, UA Negative Negative - Positive [facility] pH, UA 6.5 5 - 9 [facility] Protein, UA 1+ Negative - 1999(20) ++++ mg/dL [facility] Spec Grav, UA 1.015 1 - 1.03 [facility] Urobilinogen, UA 1.0 0.2 - 12 mg/dL [facility] US OB GROWTHon 12-14-[address] [address] Ultrasound Report Signed Patient: HESHAM AVALOS MR#: [id number] : 2000 Acct:[id number] Age/Sex: 24 / F ADM Date: 12/14/24 Loc: US Attending Dr: Don Hidalgo D.O. Ordering Physician: Don Hidalgo D.O. Date of Service: 12/14/24 Procedure(s): US OB growth Accession Number(s): [id number] cc: Don Hidalgo D.O.; TAISHA PENA [place] [address] Patient Name: HESHAM AVALOS MRN: [facility]:[id number] date: 2000 Sex: F Assigned Patient Location: US Current Patient Location: US Accession/Order Number: [id number] Exam Date: 12/14/2024 09:50 Report Date: 12/14/2024 [...] Atkinson M.D. 12/14/2024 11:17 AM Dictation Location: [place] [address] Electronically authenticated by: [id number] Y Date: 12/14/2024 11:17 Dictated By: Wilfrido Atkinson M.D. Signed By: 12/14/24 1119 DD/ 1117 TD/TT: Pulmonologist: [facility] Radiology, Radiologist, - 12/14/[address] [address] Ultrasound Report Signed Patient: HESHAM AVALOS MR#: [id number] : 2000 Acct:[id number] Age/Sex: 24 / F ADM Date: 12/14/24 Loc: US Attending Dr: Don Hidalgo D.O. Ordering Physician: Don Hidalgo D.O. Date of Service: 12/14/24 Procedure(s): US OB growth Accession Number(s): [id number] cc: Don Hidalgo D.O.; TAISHA PENA The [place] [id number] Patient Name: HESHAM AVALOS MRN: [id number] date: 2000 Sex: F Assigned Patient Location: US Current Patient Location: Accession/Order Number: [id number] Exam Date: 12/14/2024 09:50 Report Date: 12/14/2024 [...] Atkinson M.D. 12/14/2024 11:17 AM Dictation Location: [place] [address] Electronically authenticated by: [id number] Y Date: 12/14/2024 11:17 Dictated By: Wilfrido Atkinson M.D. Signed By: 12/14/24 1119 DD/ 1117 TD/TT: Pulmonologist: [facility] Radiology Study observation (narrative) [facility] US OB GROWTHOrdered By: Nini munizogdoyle Radiology on 12-14-2024 [facility] Work Phone: Urinalysis macro (dipstick) panel (U)on 12-12-2024 Bilirubin, UA Negative Negative - 4(70) +++ mg/dL [facility] Blood, UA Negative Negative - 50 Eulogio/mcL [facility] Healthcare Clarity, UA Clear [facility] Healthca re Color, UA Hattie [facility] Health[facility] e Glucose, UA Negative Negative - 1999(110) ++++ mg/dL [facility] Interpretation and review of laboratory results Abnormal [facility] Ketones, UA Negative Negative - 160(16) ++++ mg/dL [facility] Leukocytes, UA Positive Negative - 500+++ Rufina/mcL [facility] Comment on above: Trace Nitrite, UA Negative Negative - Positive [facility] pH, UA 6 5 - 9 [facility] Healthcar e Protein, UA Positive Negative - 1999(20) ++++ mg/dL [facility] Comment on above: 1+ Spec Grav, UA 1.02 1 - 1.03 [facility] Urobilinogen, UA 0.2 0.2 - 12 mg/dL [facility] Urinalysis macro (dipstick) panel (U)on 11-28-2024 Bilirubin, UA 1+ Negative - 4(70) +++ mg/dL [facility] Blood, UA Negative Negative - 50 Eulogio/mcL [facility] Healthcare Clarity, UA Clear [facility] Healthca re Color, UA Yellow [facility] Health[facility] e Glucose, UA Negative Negative - 1999(110) ++++ mg/dL [facility] Interpretation and review of laboratory results Abnormal [facility] Ketones, UA Negative Negative - 160(16) ++++ mg/dL [facility] Leukocytes, UA 1+ Negative - 500+++ Rufina/mcL [facility] Nitrite, UA Negative Negative - Positive [facility] pH, UA 6 5 - 9 [facility] Health[facility] e Protein, UA 1+ Negative - 1999(20) ++++ mg/dL [facility] Spec Grav, UA 1.015 1 - 1.03 [facility] Urobilinogen, UA 1.0 0.2 - 12 mg/dL [facility] Health[facility] e ALL CBC WITH AUTO DIFFon BASOPHILS ABSOLUTE AUTO 0 [facility] Basophils/100 WBC (Bld) 0.2 % 0.2 - 2.0 % [facility] Eosinophils/100 WBC (Bld) 0.2 % Low 0.9 - 7.0 % [facility] Erythrocyte distribution width (RBC) [Ratio] 13.7 % 11.0 - 15.0 % [facility] Hematocrit (Bld) [Volume fraction] 32.3 % Low 36.0 - 48.0 % [facility] e Hemoglobin (Bld) [Mass/Vol] 10.6 g/dL Low 12.0 - 16.0 g/dL [facility] IMMATURE GRANULOCYTES ABS AUTO 0.04 High [facility] Immature granulocytes/100 WBC (Bld) 0.4 % 0.0 - 0.5 % [facility] Interpretation and review of laboratory results Abnormal [facility] LYMPHOCYTES ABSOLUTE AUTO 1.5 [facility] Lymphocytes/100 WBC (Bld) 16.2 % Low 20.5 - 60.0 % [facility] MCH (RBC) [Entitic mass] 30.9 pg 26.7 - 34.0 pg [facility] MCHC (RBC) [Mass/Vol] 32.8 g/dL 29.9 - 35.2 g/dL [facility] MCV (RBC) [Entitic vol] 94.2 fL 81.0 - 99.0 fL [facility] MONOCYTES ABSOLUTE AUTO 0.5 [facility] Monocytes/100 WBC (Bld) 5.8 % 1.7 - 12.0 % [facility] NEUTROPHILS ABSOLUTE AUTO 6.9 High [facility] Neutrophils/100 WBC (Bld) 77.2 % High 43.0 - 75.0 % [facility] Platelet mean volume (Bld) [Entitic vol] 10.1 fL 9.5 - 13.5 fL [facility] EO # 0 [facility] PLT 183 [facility] RBC 3.43 Low [facility] Healthcar e TB[facility] WBC 9 [facility] Healthcar e Urinalysis macro (dipstick) panel (U)on 11-14-2024 Bilirubin, UA Negative Negative - 4(70) +++ mg/dL [facility] Healthcare Blood, UA Negative Negative - 50 Eulogio/mcL [facility] Clarity, UA Clear [facility] re Color, UA Yellow [facility] Glucose, UA Negative Negative - 1999(110) ++++ mg/dL [facility] Interpretation and review of laboratory results Abnormal [facility] Healthcare Ketones, UA Negative Negative - 160(16) ++++ mg/dL [facility] Healthcare Leukocytes, UA Positive Negative - 500+++ Rufina/mcL [facility] Comment on above: Small Nitrite, UA Negative Negative - Positive [facility] pH, UA 6.5 5 - 9 [facility] Protein, UA Positive Negative - 1999(20) ++++ mg/dL [facility] Comment on above: Small Spec Grav, UA 1.015 1 - 1.03 [facility] Urobilinogen, UA 0.2 0.2 - 12 mg/dL [facility] Healthcare [facility] Urinalysis macro (dipstick) panel (U)on 10-17-2024 Bilirubin, UA Negative Negative - 4(70) +++ mg/dL [facility] Blood, UA Negative Negative - 50 Eulogio/mcL [facility] Healthcare Clarity, UA Clear [facility] re Color, UA Yellow [facility] Glucose, UA Negative Negative - 1999(110) ++++ mg/dL [facility] Interpretation and review of laboratory results Normal [facility] Ketones, UA Negative Negative - 160(16) ++++ mg/dL [facility] Leukocytes, UA Negative Negative - 500+++ Rufina/mcL [facility] Healthcare Nitrite, UA Negative Negative - Positive [facility] pH, UA 7 5 - 9 [facility] Protein, UA Negative Negative - 1999(20) ++++ mg/dL [facility] Spec Grav, UA 1.02 1 - 1.03 [facility] Urobilinogen, UA 0.2 0.2 - 12 mg/dL [facility] Ambulatory Visit Summaryon 0 10-07-2024 Ambulatory Visit Summary Ambulatory Visit Summary HESHAM AVALOS :2000 Visit Date:10/07/2024 Ambulatory Visit Instructions Your Diagnosis Dyspareunia, female Your Care Team Attending Physician - Darin RICHARD MD Primary Care Physician - ANDREA MACK, JIM [...] Where: [facility] [address], [place] [address] [phone] Medications What How Much When Instructions Unchanged [...] care provider who specializes in women's health (bleach maker). How is this treated? Treatment for this condition depends on the cause of the condition and your symptoms. Treatment may include: ??? Lubricants, ointments, and creams. ??? Physical therapy. ??? Massage therapy. ??? Hormonal therapy. ??? Medicines to: ? Prevent or fight infection. ? Relieve pain. ? Help numb the area. ? Treat de (more content not included)... Normal [facility] Urology Office/Clinic Noteon 10-07-2024 Urology Office/Clinic [...] MRI Follow-up With When Contact Information TINO AMCK, Darin Cummins, URL Only if needed [facility] [address], [place] [address] [phone] Additional Instructions: Patient Education Dyspareunia, Female I, [...] Seizure: Sister. Immunizations Vaccine Date Status SARSCoV2 mRNA(hygmlpdib-igll-c faustorichard) vac 06/03/2021 Recorded SARS-CoV-2 (COVID-19) mRNA BNT-162b2 vax 05/13/2021 Recorded influenza virus vaccine, inactivated 02/01/2021 Recorded hepatitis B pediatric vaccine 10/29/2019 Recorded hepatitis B adult vaccine 05/14/2019 Recorded measles/mumps/rubella /varicella vaccine 04/11/2019 Recorded hepatitis B pediatric vaccine 04/11/2019 Recorded meningococcal conjugate vaccine 11/09/2017 Recorded poliovirus vaccine, inactivated 12/08/2004 Recorded measles/mumps/rubella virus vaccine 12/08/2004 Recorded diphtheria/pertussis, acel/tetanus ped (more content not included)... Normal [facility] Comment on above: Result Comment: Elec tronically Signed By: Darin RICHARD MD\.br\Date and Time Signed: 10/07/24 08:55 EDT\.br\Electronically Co-Signed By: Chichi Bautista\.br\Date and Time Co-Signed: 10/07/24 08:53 EDT GLUCOSE 1 HOURon 09-18-2024 Glucose [Mass/Vol] 104 mg/dL NINF - 13 0 mg/dL [facility] Healthcar e Urinalysis macro (dipstick) panel (U)on 09-17-2024 Bilirubin, UA Negative Negative - 4(70) +++ mg/dL [facility] Blood, UA Negative Negative - 50 Eulogio/mcL [facility] Clarity, UA Clear [facility] re Color, UA Yellow [facility] Healthcar e Glucose, UA Negative Negative - 1999(110) ++++ mg/dL [facility] Interpretation and review of laboratory results Abnormal [facility] Ketones, UA Positive Negative - 160(16) ++++ mg/dL [facility] Comment on above: 40mg/dL Leukocytes, UA Negative Negative - 500+++ Rufina/mcL [facility] Nitrite, UA Negative Negative - Positive [facility] pH, UA 6 5 - 9 [facility] Protein, UA Negative Negative - 1999(20) ++++ mg/dL [facility] Spec Grav, UA 1.015 1 - 1.03 [facility] care Urobilinogen, UA 0.2 0.2 - 12 mg/dL [facility] Urinalysis macro (dipstick) panel (U)on 08-20-2024 Bilirubin, UA Positive Negative - 4(70) +++ mg/dL [facility] Comment on above: small Blood, UA Negative Negative - 50 Eulogio/mcL [facility] Clarity, UA Clear [facility] Healthct re Color, UA Yellow [facility] Health[facility] e Glucose, UA Negative Negative - 2000(110) ++++ mg/dL [facility] Interpretation and review of laboratory results Abnormal [facility] Ketones, UA Positive Negative - 160(16) ++++ mg/dL [facility] Comment on above: 15mg/dL Leukocytes, UA Positive Negative - 500+++ Rufina/mcL [facility] Comment on above: small Nitrite, UA Negative Negative - Positive [facility] pH, UA 7.5 5 - 9 [facility] Healthcar e Protein, UA Positive Negative - 2000(20) ++++ mg/dL [facility] Comment on above: 100mg/dL Spec Grav, UA 1.015 1 - 1.03 [facility] Urobilinogen, UA 1.0 0.2 - 12 mg/dL [facility] Health[facility] Ambulatory Visit Summaryon 0 08-05-2024 [...] Appointments Follow Up with TINO MACK, Darin R, URL When: Comments: schedule cystoscopy Where: [facility] [address] [place] [address] [phone] Medications What How Much When Instructions Unchanged [...] including vitamins, herbs, eye drops, creams, and mqcf-ojv-ojdscmi medicines. ??? Any problems you or family [...] tells you to take them. ??? Taking zsfb-vyb-wkaemar medicines, vitamins, herbs, and supplements. Tests You [...] (local ane (more content not included)... Normal [facility] Urology Office/Clinic Noteon 08-05-2024 Urology Office/Clinic [...] URL [facility] [address], [place] [address] [phone] Additional Instructions: schedule cystoscopy Patient Education Cystoscopy [...] failure: Grandparent. Hypertension: Grandparent. Seizure: Sister. Normal [facility] Comment on above: Result Comment: Elec tronically Signed By: Darin RICHARD MD\.br\Date and Time Signed: 08/05/24 13:46 EDT\.br\Electronically Co-Signed By: Chichi Bautista.br\Date and Time Co-Signed: 08/05/24 13:44 EDT RECURRENT [...] [facility] LIU GLABRATA Not detected [facility] H ealthcare LIU KRUSEI 0 [facility] Healt hcare LIU KRUSEI Not detected [facility] CHLAMYDIA TRACHOMATIS 0 [facility] CHLAMYDIA TRACHOMATIS Not detected [facility] GARDNERELLA VAGINALIS 0 [facility] GARDNERELLA VAGINALIS Not detected [facility] MEGASPHAERA (TYPES 1, 2) 0 [facility] MEGASPHAERA (TYPES 1, 2) Not detected [facility] MYCOPLASMA GENITALIUM 0 [facility] [facility] MYCOPLASMA GENITALIUM Not detected [facility] NEISSERIA GONORRHOEAE 0 [facility] NEISSERIA GONORRHOEAE Not detected [facility] TRICHOMONAS VAGINALIS 0 [facility] TRICHOMONAS VAGINALIS Not detected [facility] macro (dipstick) panel (U)on 07-23-2024 Bilirubin, UA Negative Negative - 4(70) +++ mg/dL [facility] Blood, UA Negative Negative - 50 Eulogio/mcL [facility] Clarity, UA Clear [facility] re Color, UA Yellow [facility] e Glucose, UA Negative Negative - 1999(110) ++++ mg/dL [facility] Interpretation and review of laboratory results Abnormal [facility] Ketones, UA Positive Negative - 160(16) ++++ mg/dL [facility] Comment on above: trace Leukocytes, UA Negative Negative - 500+++ Rufina/mcL [facility] Nitrite, UA Negative Negative - Positive [facility] pH, UA 6.5 5 - 9 [facility] Protein, UA Trace Negative - 1999(20) ++++ mg/dL [facility] Spec Grav, UA 1.03 1 - 1.03 [facility] Urobilinogen, UA 0.2 0.2 - 12 mg/dL [facility] Free Cell DNAOrdered B y: Pao Fu on 07-16-2024 [facility] BOX TESTon 07-08-2024 BOX TEST SENT OUT [facility] BOX1 [facility] e BOX2 07/08/24 [facility] Drug Screen, Urineon 025 Amphetamine/Methamph etamine Negative [facility] Barbiturates Negative [facility] Benzodiazepines Negative [facility] Cocaine Metabolite Negative [facility] Methadone Negative [facility] Opiates Negative [facility] Oxycodone Negative [facility] Phencyclidine Negative [facility] Thc Marijuana, Urine Negative [facility] HIV 1&2 AB/AG Screen (P24 AG )on 07-08-2024 HIV 1&2 AB/AG Non-Reactive [facility] Hepatitis B surface antigeno n 07-08-2024 Hepatitis B Surface Antigen Negative [facility] Hepatitis C(HCV) Ab w/ Refle x to PCRon 07-08-2024 HCV Ab Ql (S) Non-Reactive [facility] No Panel Informationon 07-08 [facility] Rubella IGG immune statuson 07-08-2024 Rubella immune IgG IMMUNE [facility] Syphilis Total(Unknown Syphi lis Status)on 07-08-2024 Syphilis Non-Reactive [facility] Type and screenon 07-08-2024 Abo/Rh(D) Positive [facility] US OB TRANSVAGINALon 025 US OB [...] II, MD, PHD at 05-Jul-2024 08:37:00 PM [facility] Normal Not Available Comment on above: Order Comment: US OB TRANSVAGINAL No LMP recorded. Cytology Cervical or vaginal smear or scraping studyon 11-21-2023 [facility] PAP ACOG PANEL 2: 21 to 29on 03-04-2022 . . Normal [facility] Comment on above: Performed By: #### [id number] #### [facility] [address] [place] [address] Dr. Anthony Newton Age Gdln ACOG Testing - [facility] Comment on above: Performed By: #### [id number] #### [facility] [address] [place] [address] Dr. Anthony Newton DIAGNOSIS: Comment [facility] Comment on above: Result Comment: NEGA TIVE FOR INTRAEPITHELIAL LESION OR MALIGNANCY. THIS SPECIMEN WAS RESCREENED PART OF OUR SKIN PEELING MACHINE OPERATOR PROGRAM. Performed By: #### [id number] #### [facility] [address] [place] [address] Dr. Anthony Newton Methodology: Comment [facility] Comment on above: Result Comment: This liquid based ThinPrep(R) pap test was screened with the use of an image guided system. Performed By: #### [id number] #### [facility] [address] [place] [address] Dr. Anthony Newotn Note: Comment [facility] Comment on above: Result Comment: The Pap smear is a screening test designed to aid in the detection of premalignant and malignant conditions of the uterine cervix. It is not a diagnostic procedure and should not be used as the sole means of detecting cervical cancer. Both false-positive and false-negative reports do occur. . Performed By: #### [id number] #### [facility] [address] [place] [address] Dr. Anthony Newton Performed by: Comment Normal [facility] Comment on above: Result Comment: Lana Connell, Cut Off Man Performed By: #### [id number] #### [facility] [address] [address] [address] Anthony Newton QC reviewed by: Comment Normal [facility] Comment on above: Result Comment: Shae Maria, Cut Off Man (ASCP) Performed By: #### [id number] #### [facility] [address] [address] [address] Anthony Newton Reflex Criteria: Comment Normal [facility] Comment on above: Result Comment: The HPV DNA reflex criteria were not met with this specimen result therefore, no HPV testing was performed. . Performed By: #### [id number] #### [facility] [address] [address] [address] Anthony Newton Specimen adequacy: Comment Normal [facility] Comment on above: Result Comment: Sati sfactory for evaluation. Endocervical and/or squamous metaplastic cells (endocervical component) are present. Performed By: #### [id number] #### [facility] [address] [address] [address] Anthony Newton Lab - Toxicology Resultson 0 10-05-2018 Lab - Toxicology Results [id number]. [facility] Recordson 10-04-2018 Outside Records [id number]. 00OTGTIFF [facility] Triage Industrialon 10-05-19 Drug Screen Complete Collected Normal [facility] Comment on above: Performed By: #### [id number] #### [facility] (DEFAULT) [address] [place] [address] ED Clinical Summaryon 2018 ED Clinical Summary ? Urgent Care [address] [place] [id number] Clinical Summary PERSON INFORMATION Name: HESHAM NEELY Age: 18 Years Sex: FEMALE : 00 MRN: Acct#: Visit Reason: Medical screening exam; PHYSICAL PRE EMPLOYMENT/ RIVERVIEW Arrival: 10/03/18 16:20:33 Discharge: 10/03/18 16:50:00 LOS: 000 00:30 Check In: 10/03/18 16:20:33 Checkout: 10/03/18 16:50:00 [place]: [address] [place] [address] PCP: PROVIDER INFORMATION Provider Role Assigned Unassigned [...] Instructions: Follow-Up: DIAGNOSIS: Patient Understands: Comment: Normal ED Patient Summaryon 019 ED Patient Summary ? Urgent Care [address] [place], [place] [id number] PATIENT DISCHARGE INSTRUCTIONS Patient Information Name: HESHAM NEELY Age: 18 Years Date of : 00 Reason For Visit: Medical screening exam; PHYSICAL PRE EMPLOYMENT/ RIVERVIEW Arrival Time: 10/03/18 16:20:33 Primary Care Physician: Attending Physician: Paulino Padilla Comment: Patient Education Medication Information: The exam and treatment you received today in the [facility] Emergency Department were for an urgent problem and are not intended as complete care. It is important for you to follow up with a doctor, nurse practitioner, or physician?s speech language pathology assistant for ongoing care. If your symptoms [...] so we can reach you if necessary. Emergency Department has provided you with a complete list of medications post discharge. Please inform your primary teaching assistant/provider of your visit and for further instruction on these medications. Any specific questions regarding your chronic medications and dosages should be discussed with your primary care physician(s) and/or pharmacist. Visit Information Visit Diagnosis: Diagnoses This Visit Medical screening exam ([id number]) If you received any narcotics, sedation, or [...] sign any legal documents Reason for Visit: [place] physical Allergies: Substance Reaction Symptoms Type Comments [...] Disease Control and Prevention December 2013 [facility] Vital Signs Date Time Vital Sign Value Performing Clinician Sole rodriguez 01-23-2025 10:22-0400 Body mass index (BMI) [Ratio] 39.82 kg/m2 Britney Luis [employer]ADE [employer] Work Phone: [facility] 01-23-2025 10:22-0400 Body weight 105.23 kg Britney Luis [employer]ADE [employer]ORDER Work Phone: [facility] 01-23-2025 10:22-0400 Diastolic blood pressure 72 mm[Hg] Britney Luis GRADE RECORDER Work Phone: [facility] 01-23-2025 10:22-0400 Systolic blood pressure 124 mm[Hg] Britney Luis [employer]ADE RECORDER Work Phone: [facility] 01-14-2025 09:32-0400 Body mass index (BMI) [Ratio] 39.48 kg/m2 Britney Luis [employer]ADE [employer]ORDER Work Phone: [facility] 01-14-2025 09:32-0400 Body weight 104.33 kg Britney Luis [employer]ADE [employer]ORDER Work Phone: [facility] 01-14-2025 09:32-0400 Diastolic blood pressure 68 mm[Hg] Britney Luis GRADE RECORDER Work Phone: [facility] 01-14-2025 09:32-0400 Systolic blood pressure 122 mm[Hg] Britney Luis [employer]ADE RECORDER Work Phone: [facility] 01-06-2025 10:44-0400 Body mass index (BMI) [Ratio] 39.16 kg/m2 Kathie COCHRAN Work Phone: [facility] 01-06-2025 10:44-0400 Body weight 103.48 kg Kathie COCHRAN Work Phone: [facility] 01-06-2025 10:44-0400 Diastolic blood pressure 66 mm[Hg] Kathie COCHRAN Work Phone: [facility] 01-06-2025 10:44-0400 Systolic blood pressure 122 mm[Hg] Kathie COCHRAN Work Phone: [facility] 12-24-2024 10:07-0400 Body mass index (BMI) [Ratio] 39.31 kg/m2 Don Rocky DO Work Phone: [facility] 12-24-2024 10:07-0400 Body weight 103.87 kg Don Rocky DO Work Phone: [facility] 12-24-2024 10:07-0400 Diastolic blood pressure 70 mm[Hg] Don Rocky DO Work Phone: [facility] 12-24-2024 10:07-0400 Systolic blood pressure 124 mm[Hg] Don Rocky DO Work Phone: [facility] 12-12-2024 10:28-0400 Body mass index (BMI) [Ratio] 38.96 kg/m2 Kathie COCHRAN Work Phone: [facility] 12-12-2024 10:28-0400 Body weight 102.97 kg Kathie COCHRAN Work Phone: [facility] 12-12-2024 10:28-0400 Diastolic blood pressure 70 mm[Hg] Kathie COCHRAN Work Phone: [facility] 12-12-2024 10:28-0400 Systolic blood pressure 130 mm[Hg] Kathie COCHRAN Work Phone: [facility] 11-28-2024 08:48-0400 Body mass index (BMI) [Ratio] 38.62 kg/m2 Don Rocky DO Work Phone: [facility] 11-28-2024 08:48-0400 Body weight 102.06 kg Don Rocky DO Work Phone: [facility] 11-28-2024 08:48-0400 Diastolic blood pressure 74 mm[Hg] Don Rocky DO Work Phone: [facility] 11-28-2024 08:48-0400 Systolic blood pressure 118 mm[Hg] Don Rocky DO Work Phone: [facility] 11-14-2024 11:22-0400 Body mass index (BMI) [Ratio] 38.88 kg/m2 Kathie Roman PA Work Phone: [facility] 11-14-2024 11:22-0400 Body weight 102.74 kg Kathie Roman PA Work Phone: [facility] 11-14-2024 11:22-0400 Diastolic blood pressure 64 mm[Hg] Kathie Roman PA Work Phone: [facility] 11-14-2024 11:22-0400 Systolic blood pressure 122 mm[Hg] Kathie Roman PA Work Phone: [facility] 10-17-2024 08:10-0400 Body mass index (BMI) [Ratio] 38.66 kg/m2 Don Rocky DO Work Phone: [facility] 10-17-2024 08:10-0400 Body weight 102.17 kg Don Rocky DO Work Phone: [facility] 10-17-2024 08:10-0400 Diastolic blood pressure 58 mm[Hg] Don Rocky DO Work Phone: [facility] 10-17-2024 08:10-0400 Systolic blood pressure 114 mm[Hg] Don Rocky DO Work Phone: [facility] 09-23-2024 11:59-0400 Body height 162.6 cm Cintia Allen MD Work Phone: [facility] 09-23-2024 11:59-0400 Body mass index (BMI) [Ratio] 38.04 kg/m2 Cintia Allen MD Work Phone: [facility] 09-23-2024 11:59-0400 Body weight 100.52 kg Cintia Allen MD Work Phone: [facility] 09-23-2024 11:59-0400 Diastolic blood pressure 75 mm[Hg] Cintia Allen MD Work Phone: [facility] 09-23-2024 11:59-0400 Heart rate 90 /min Cintia Allen MD Work Phone: [facility] 09-23-2024 11:59-0400 Systolic blood pressure 119 mm[Hg] Cintia Allen MD Work Phone: [facility] 09-17-2024 13:49-0400 Body mass index (BMI) [Ratio] 38.28 kg/m2 Kathie Roman PA Work Phone: [facility] 09-17-2024 13:49-0400 Body weight 101.15 kg Kathie Jesus PA Work Phone: [facility] 09-17-2024 13:49-0400 Diastolic blood pressure 78 mm[Hg] Kathie Jesus PA Work Phone: [facility] 09-17-2024 13:49-0400 Systolic blood pressure 124 mm[Hg] Kathie Jesus PA Work Phone: [facility] 08-20-2024 10:54-0400 Body mass index (BMI) [Ratio] 37.59 kg/m2 Don Rocky DO Work Phone: [facility] 08-20-2024 10:54-0400 Body weight 99.34 kg Don Rocky DO Work Phone: [facility] 08-20-2024 10:54-0400 Diastolic blood pressure 84 mm[Hg] Don Rocky DO Work Phone: [facility] 08-20-2024 10:54-0400 Systolic blood pressure 126 mm[Hg] Don Rocky DO Work Phone: [facility] 07-23-2024 12:54-0400 Body mass index (BMI) [Ratio] 38.28 kg/m2 Don Rocky DO Work Phone: [facility] 07-23-2024 12:54-0400 Body weight 101.15 kg Don Rocky DO Work Phone: [facility] 07-23-2024 12:54-0400 Diastolic blood pressure 80 mm[Hg] Don Rocky DO Work Phone: [facility] 07-23-2024 12:54-0400 Systolic blood pressure 120 mm[Hg] Don Rocky DO Work Phone: [facility] 05-24-2023 14:05-0500 Body height 162.6 cm Stephanie Sotelo [employer]ADE [employer]ORDER Work Phone: [facility] 05-24-2023 14:05-0500 Body mass index (BMI) [Ratio] 34.57 kg/m2 Stephanie Sotelo GRADE [employer]ORDER Work Phone: [facility] 05-24-2023 14:05-0500 Body weight 91.35 kg Stephanie Sotelo [employer]ADE RECORDER Work Phone: [facility] 05-24-2023 14:05-0500 Diastolic blood pressure 74 mm[Hg] Stephanie Sotelo GRADE RECORDER Work Phone: [facility] 05-24-2023 14:05-0500 Heart rate 63 /min Stephanie Sotelo [employer]ADE [employer]ORDER Work Phone: [facility] 05-24-2023 14:05-0500 Respiratory rate 20 /min Stephanie Sotelo [employer]ADE [employer]ORDER Work Phone: [facility] 05-24-2023 14:05-0500 SaO2% (BldA) [Mass fraction] 96 % Stephanie Sotelo GRADE RECORDER Work Phone: [facility] 05-24-2023 14:05-0500 Systolic blood pressure 138 mm[Hg] Stephanie Sotelo GRADE RECORDER Work Phone: [facility] 04-12-2023 15:05-0500 Body height 162.6 cm Daniella Reina MD Work Phone: [facility] 04-12-2023 15:05-0500 Body mass index (BMI) [Ratio] 37.93 kg/m2 Daniella Reina MD Work Phone: [facility] 04-12-2023 15:05-0500 Body weight 100.25 kg Daniella Reina MD Work Phone: [employer] 04-12-2023 15:05-0500 Diastolic blood pressure 76 mm[Hg] Daniella Reina MD Work Phone: [facility] 04-12-2023 15:05-0500 Heart rate 96 /min Daniella Reina MD Work Phone: [facility] [employer] 04-12-2023 15:05-0500 Systolic blood pressure 115 mm[Hg] Daniella Reina MD Work Phone: [employer] Encounters Encounter Date Encounter Type Care Provider Facility Start: 01-23-2025 End: 01-23-2025 Bamboo flowsheet Britney Smith NP Work Phone: [facility] Start: 01-23-2025 End: 01-23-2025 Bamboo flowsheet Britney Smith NP Work Phone: [facility] Start: 01-23-2025 End: 01-23-2025 flow sheet Britney Smith NP Work Phone: [facility] Comment on above: Third trimester preg bria ([facility]); 37 weeks gestation of ([facility]) Start: 01-18-2025 End: 01-18-2025 Clinisync Result Encounter [...] flow sheet Britney Smith NP Work Phone: [facility] Comment on above: Third trimester preg bria ([facility]); 36 weeks gestation of ([facility]); History of placental abnormality; Excessive growth affecting management of , antepartum, single or unspecified fetus ([facility]) Start: 01-14-2025 End: 01-14-2025 ambulatory BRITNEYCLARICE OSUNALY Not Available Start: 01-06-2025 End: 01-06-2025 Bamboo flowsheet Kathie COCHRAN Work Phone: [facility] Start: 01-06-2025 End: 01-06-2025 Bamboo flowsheet Kathie COCHRAN Work Phone: [facility] Start: 01-06-2025 End: 01-06-2025 flow sheet Kathie COCHRAN Work Phone: [facility] Comment on above: Third trimester preg bria ([facility]); 35 weeks gestation of ([facility]) Start: 01-06-2025 End: 01-06-2025 ambulatory KATHIE ROMAN Not Available Start: 12-24-2024 End: 12-24-2024 Bamboo flowsheet Don Rocky DO Work Phone: [facility] Start: 12-24-2024 End: 12-24-2024 Bamboo flowsheet Don Rocky DO Work Phone: [facility] Start: 12-24-2024 End: 12-24-2024 flow sheet Don Rocky DO Work Phone: [facility] [place] [facility] Comment on above: Third trimester preg bria ([facility]); 33 weeks gestation of ([facility]); History of placental abnormality; Excessive growth affecting management of , antepartum, single or unspecified fetus ([facility]) Start: 12-24-2024 End: 12-24-2024 ambulatory DON [...] flow sheet Kathie COCHRAN Work Phone: [facility] Comment on above: Third trimester preg bria ([facility]); 31 weeks gestation of ([facility]) Start: 12-12-2024 End: 12-12-2024 ambulatory KATHIE ROMAN Not Available Start: 11-28-2024 End: 11-28-2024 Bamboo flowsheet Don Rocky DO Work Phone: [facility] Start: 11-28-2024 End: 11-28-2024 Bamboo flowsheet Don Rocky DO Work Phone: [facility] Start: 11-28-2024 End: 11-28-2024 flow sheet Don Rocky DO Work Phone: [facility] Comment on above: Third trimester preg bria ([facility]); 29 weeks gestation of ([facility]); History of placental abnormality; Excessive growth affecting management of in third trimester, single or unspecified fetus ([facility]) Start: 11-28-2024 End: 11-28-2024 ambulatory DON ROCKY Not Available Start: 11-16-2024 End: 11-16-2024 Clinisync Result Encounter Generic External Data Provider [facility] External Department Unsolicited Start: 11-16-2024 End: 11-16-2024 Clinisync Result Encounter Generic External Data Provider [facility] External Department Unsolicited Start: 11-14-2024 End: 11-14-2024 Bamboo flowsheet Kathie COCHRAN Work Phone: [facility] [place] [facility] Start: 11-14-2024 End: 11-14-2024 Bamboo flowsheet Kathie COCHRAN Work Phone: [facility] Start: 11-14-2024 End: 11-14-2024 flow sheet Kathie COCHRAN Work Phone: [facility] [place] [facility] Comment on above: Second trimester pre gnancy ([facility] 27 weeks gestation of ([facility]) Start: 11-14-2024 End: 11-14-2024 ambulatory KATHIE ROMAN Not Available Start: 10-24-2024 End: 10-24-2024 ambulatory DON R ROCKY [facility] Start: 10-17-2024 End: 10-17-2024 Bamboo flowsheet Don Rocky DO Work Phone: [facility] Start: 10-17-2024 End: 10-17-2024 Bamboo flowsheet Don Rocky DO Work Phone: [facility] Start: 10-17-2024 End: 10-17-2024 flow sheet Don Rocky DO Work Phone: [facility] Comment on above: Second trimester pre gnancy ([facility]); 23 weeks gestation of ([facility]); Diabetes mellitus screening Start: 10-17-2024 End: 10-17-2024 ambulatory DON ROCKY Not Available Start: 10-07-2024 End: 10-07-2024 ambulatory Darin RICHARD Facility: [facility] Start: 10-07-2024 End: 10-07-2024 Patient encounter procedure Darin RICHARD [facility] Start: 09-23-2024 End: 09-23-2024 Office consultation new/estab patient 40 min Cintia Allen MD Work Phone: [facility] Comment on above: Obesity affecting pr egnancy in second trimester, unspecified obesity type (Primary Dx) Start: 09-23-2024 End: 09-23-2024 Orders Only Sherrill Hernandez [facility] Comment on above: Polyhydramnios affec ting (Primary Dx); Low-lying placenta; Placenta previa in second trimester; Velamentous insertion of umbilical cord in second trimester; Vasa previa, single or unspecified fetus; History of hemorrhage, currently in second trimester Start: 09-18-2024 End: 09-18-2024 Clinisync Result Encounter Don Rocky DO Work Phone: [facility] External Department Unsolicited Start: 09-18-2024 End: 09-18-2024 Clinisync Result Encounter Don Rocky DO Work Phone: [facility] External Department Unsolicited Start: 09-17-2024 End: 09-17-2024 Bamboo flowsheet Kathie COCHRAN Work Phone: [facility] Start: 09-17-2024 End: 09-17-2024 Bamboo flowsheet Kathie COCHRAN Work Phone: [facility] Start: 09-17-2024 End: 09-17-2024 ambulatory KATHIE ROMAN Not Available Start: 09-17-2024 End: 09-17-2024 flow sheet Kathie COCHRAN Work Phone: [facility] Comment on above: Second trimester [...] Start: 08-05-2024 End: 08-05-2024 ambulatory Darin RICHARD Facility:[facility] Start: 08-02-2024 End: 08-02-2024 Chart abstracting Cintia Allen MD Work Phone: [facility] Start: 07-25-2024 ambulatory Facility:[facility] Start: 07-23-2024 [...] 05-24-2023 Bamboo flowsheet Stephanie A Fit zpatrick GRADE [employer]ORDER Work Phone: [facility] Start: 05-24-2023 Bamboo flowsheet Stephanie A Fit zpatrick GRADE RECORDER Work Phone: [facility] Start: 05-24-2023 End: 05-24-2023 Patient encounter status Stephanie Villagran Ashleigh GRADE RECORDER Work Phone: [facility] Work Phone: Start: 05-24-2023 End: 05-24-2023 Periodic preventive med est patient 18-39 yrs Stephanie Villagran Ashleigh GRADE RECORDER Work Phone: [facility] Comment on above: Encounter for wellne ss examination (Primary Dx); Anemia, unspecified type Start: 04-12-2023 End: 04-12-2023 Office outpatient visit 25 minutes Daniella Reina MD Work Phone: [facility] [place] Comment on above: 35 weeks gestation o f (Primary Dx); Polyhydramnios affecting Start: 02-24-2022 End: 02-24-[address] DON HIDALGO Facility: Procedures Date Procedure Procedure Detail Performing Clinician Start: 01-23-2025 Urnls dip stick/tabl et rgnt non-auto w/o micrscp Britney Smith [employer] Work Phone: Start: 01-18-2025 US OB BPP W NON-STRESS Britney Smith GRADE [employer]ORDER Work Phone: Start: 01-14-2025 Urnls dip stick/tabl et rgnt non-auto w/o micrscp Britney Smith [employer]ADE [employer]ORDER Work Phone: Start: 01-14-2025 STREP GP B [...] Work Phone: Start: 09-18-2024 GLUCOSE 1 HOUR Dno Fa zio DO Work Phone: Start: 09-17-2024 [...] DTaP,Tdap and Td Vaccines (6 - Tdap) [facility] [employer] [facility] Start: 11-09-2025 Screening for malign ant neoplasm of cervix Pap Smear [facility] Start: 09-23-2025 Adult BMI Screening Adult [facility] Screen ing [facility] Start: 09-23-2025 Tobacco Screening Tobacco Screening [facility] [employer] [facility] Start: 09-23-2025 End: 09-23-2025 US MFM with or without consult US MFM with or without consult Imaging Routine Polyhydramnios affecting Low-lying placenta Placenta previa in second trimester Velamentous insertion of umbilical cord in second trimester Vasa previa, single or unspecified fetus History of hemorrhage, currently in second trimester Expected: 09/23/2025 (Approximate), Expires: 09/23/2025 [employer] Work Phone: Comment on above: Expected: 09/23/2025 (Approximate), Expires: 09/23/2025 Start: 01-23-2025 End: 01-23-2025 Patient encounter procedure [facility] Comment on above: Arrived Start: 01-14-2025 End: 01-14-2026 CULTURE, GROUP B STREP WITH SUSCEPTIBLITY CULTURE, GROUP B STREP WITH SUSCEPTIBLITY Lab Routine Third trimester ([facility]) Expected: 01/14/2025 (Approximate), Expires: 01/14/2026 [facility] Work Phone: Comment on above: Expected: 01/14/2025 (Approximate), Expires: 01/14/2026 Start: 01-14-2025 End: 07-14-2025 US biophysical profile w non stress test US biophysical profile w non stress test Imaging Routine Third trimester ([facility]) 36 weeks gestation of ([facility]) History of placental abnormality Excessive growth affecting management of , antepartum, single or unspecified fetus ([facility]) Expected: 01/14/2025 (Approximate), Expires: 07/14/2025 [facility] Comment on above: Expected: 01/14/2025 (Approximate), Expires: 07/14/2025 Start: 01-14-2025 End: 01-14-2025 Patient encounter procedure 01/14/2025 9:20 AM EDT Routine CONY JAVIER [address] [place] [address] Britney Smith, GRADE RECORDER [address] [place] [phone] [facility] Start: 01-14-2025 End: 01-14-2025 Professional / ancillary services management 01/14/2025 9:00 AM EDT Ancillary Procedure CONY JAVIER [address] [place] [address] [facility] Start: 01-06-2025 End: 01-06-2025 Patient encounter procedure [facility] Comment on above: Arrived Start: 12-24-2024 End: 04-25-2025 US for US OB follow up transabdominal approach Imaging Routine Excessive growth affecting management of , antepartum, single or unspecified fetus ([facility]) Expected: 12/24/2024, Expires: 04/25/2025 [facility] Work Phone: Comment on above: Expected: 12/24/2024 , Expires: 04/25/2025 Start: 12-24-2024 End: 12-24-2024 Patient encounter procedure [facility] Comment on above: Arrived Start: 12-16-2024 Influenza vaccination [facility] Start: 12-12-2024 End: 12-12-2024 Patient encounter procedure 12/12/2024 10:10 AM EDT Routine CONY JAVIER [address] [place] [address] Kathie Roman PA [address] [place], [place] [phone] Arrived [facility] Comment on above: Arrived Start: 11-28-2024 End: [...] EDT Office Visit [facility] [address] [place] [phone] Don Hidalgo DO [address] [place], [place] [phone] [facility] Start: 11-14-2024 End: 11-14-2024 Patient encounter procedure [facility] Comment on above: Arrived Start: 10-24-2024 End: 10-24-2024 Patient encounter procedure 10/24/2024 1:00 PM EDT Appointment [facility] [address] [facility] [place] [phone] [facility] Start: 10-17-2024 End: 10-17-2025 CBC panel - [...] AM EDT Routine [facility] [address] [facility] [phone] Don Hidalgo, DO [address] [place] [address] [facility] Start: 10-17-2024 End: 10-17-2024 Patient encounter procedure 10/17/2024 8:10 AM EDT Routine [facility] [address] [place] [phone] Don Hidalgo, DO [address] [place] [address] Arrived [facility] Comment on above: Arrived Start: 09-23-2024 End: 09-23-2024 Patient encounter procedure [facility] Start: 09-17-2024 End: 09-17-2024 Patient encounter procedure 09/17/2024 1:30 PM EDT Routine [facility] [address] [phone] Kathie Roman PA [address] [place] [address] [facility] Start: 08-20-2024 End: 10-20-2024 [...] mellitus screening Expected: 08/20/2024 (Approximate), Expires: 08/20/2025 [facility] Comment on above: Expected: 08/20/2024 (Approximate), Expires: 08/20/2025 Start: 08-20-2024 End: 08-20-2024 Patient encounter procedure 08/20/2024 10:20 AM EDT Routine [facility] [address] [place] [phone] Don Hidalgo, DO [address] [place] [address] [facility] Start: 08-05-2024 End: 08-05-2024 Patient encounter procedure 08/05/2024 2:10 PM EDT Routine [facility] [address] [place] [phone] Don Hidalgo, DO [address] [place] [address] [facility] Start: 04-12-2024 Adult BMI Screening Adult BMI Screen ing [facility] Start: 04-12-2024 Tobacco Screening Tobacco Screening [facility] Start: 12-17-2023 COVID-19 Vaccine ( season) COVID-19 Vaccine ( season) [facility] Start: 12-17-2023 Influenza vaccination Influenza Vacc ine (#1) [facility] Start: 11-10-2023 Screening for Chlamy annabella trachomatis Chlamydia Screening [facility] Start: 10-15-2023 Influenza vaccination Influenza Vacc ine (#1) [facility] Comment on above: Postponed from 12/16 (Patient Refused) Start: 06-07-2023 End: 06-07-2023 ambulatory 06/07/2023 10:30 AM EST Visit [facility] OB [address] [phone] Kathie Roman PA [address] [place] [address] [facility] Start: 05-24-2023 End: 05-24-2024 CBC W Auto Differential panel - Blood CBC and differential Lab Routine Encounter for wellness examination Anemia, unspecified type Expected: 05/24/2023 (Approximate), Expires: 05/24/2024 [facility] Comment on above: Expected: 05/24/2023 (Approximate), Expires: 05/24/2024 Start: 05-24-2023 End: 05-24-2024 Comprehensive metabolic 2000 panel - Serum or Plasma Comprehensive metabolic panel Lab Routine Encounter for wellness examination Anemia, unspecified type Expected: 05/24/2023 (Approximate), Expires: 05/24/2024 [facility] Work Phone: Comment on above: Expected: 05/24/2023 (Approximate), Expires: 05/24/2024 Start: 12-16-2022 COVID-19 Vaccine () COVID-19 Vaccine () [facility] Start: 12-16-[address] [facility] Start: 01-31-2022 Depression Screening Depression Scre [facility] Start: 2018 Adult BMI Follow Up Plan Adult BMI Follow Up Plan [facility] Start: 2012 Depression Screening Depression Scre [facility] CHLAMYDIA TRACHOMATI S (GENITO/STI) CHLAMYDIA TRACHOMATIS (GENITO/STI) Lab Routine Vaginal discharge Ordered: 07/23/2024 [facility] Comment on above: Ordered: 07/23/2024 Neisseria gonorrhoea e DNA [Presence] in Unspecified specimen by BOONE with probe detection Neisseria gonorrhea DNA probe, direct Lab Routine Vaginal discharge Ordered: 07/23/2024 [facility] Comment on above: Ordered: 07/23/2024 SURESWAB(R) ADVANCED VAGINITIS PLUS, TMA SURESWAB(R) ADVANCED VAGINITIS PLUS, TMA Pathology and Cytology Routine Vaginal discharge Ordered: 07/23/2024 [facility] Work Phone: Comment on above: Ordered: 07/23/2024 Immunizations Immunization Date Immunization Notes Care Provider [facility] 06-03-2021 SARS-CoV-2 mRNA (cffwzpceffn-donl-zsfwo se) vaccine Darin RCIHARD [facility] 05-13-2021 SARS-CoV-2 (COVID-19 ) mRNA BNT-162b2 vax Darin RICHARD [facility] 02-01-2021 Seasonal, quadrivale nt, recombinant, injectable influenza vaccine, preservative free Stephanie Sotelo NP Work Phone: [facility] 02-01-2021 influenza virus vaccine, unspecified formulation Daniella Reina MD Work Phone: [facility] 12-19-2020 diphtheria, tetanus toxoids and pertussis vaccine Daniella Reina MD Work Phone: [facility] 10-29-2019 hepatitis B vaccine, pediatric or pediatric/adolescent dosage Daniella Reina MD Work Phone: [facility] 05-14-2019 hepatitis B vaccine, adult dosage Daniella Reina MD Work Phone: [facility] 04-11-2019 hepatitis B vaccine, pediatric or pediatric/adolescent dosage Daniella Reina MD Work Phone: [facility] 04-11-2019 measles, mumps, rubella, and varicella virus vaccine Daniella Reina MD Work Phone: [facility] 11-09-2017 meningococcal ACWY vaccine, unspecified formulation Darin RICHARD [facility] 11-09-2017 meningococcal oligosaccharide (groups A, C, Y and W-135) diphtheria toxoid conjugate vaccine (MCV4O) Daniella Reina MD Work Phone: [facility] 12-08-2004 diphtheria, tetanus toxoids and acellular pertussis vaccine Daniella Reina MD Work Phone: [facility] 12-08-2004 measles, mumps and rubella virus vaccine Daniella Reina MD Work Phone: [facility] 12-08-2004 poliovirus vaccine, inactivated Daniella Reina MD Work Phone: [facility] 12-08-2004 poliovirus vaccine, unspecified formulation Darin RICHARD [facility] 09-28-2001 measles, mumps and rubella virus vaccine Daniella Reina MD Work Phone: [facility] 03-23-2001 diphtheria, tetanus toxoids and acellular pertussis vaccine, unspecified formulation Daniella Reina MD Work Phone: [facility] 03-23-2001 DTaP, unspecified formulation Darin RICHARD [facility] 03-23-2001 haemophilus influenz ae type b conjugate and Hepatitis B vaccine Daniella Reina MD Work Phone: [facility] 03-23-2001 poliovirus vaccine, inactivated Daniella Reina MD Work Phone: [facility] 03-23-2001 poliovirus vaccine, unspecified formulation Darin RICHARD [facility] 01-12-2001 diphtheria, tetanus toxoids and acellular pertussis vaccine, unspecified formulation Daniella Reina MD Work Phone: [facility] 01-12-2001 DTaP, unspecified formulation Darin RICHARD [facility] 01-12-2001 haemophilus influenz ae type b vaccine, HbOC conjugate Daniella Reina MD Work Phone: [facility] 01-12-2001 poliovirus vaccine, inactivated Daniella Reina MD Work Phone: [facility] 01-12-2001 poliovirus vaccine, unspecified formulation Darin RICHARD [facility] 2000 diphtheria, tetanus toxoids and acellular pertussis vaccine, unspecified formulation Daniella Reina MD Work Phone: [facility] 2000 DTaP, unspecified formulation Darin RICHARD [facility] 2000 haemophilus influenz ae type b conjugate and Hepatitis B vaccine Daniella Reina MD Work Phone: [facility] 2000 poliovirus vaccine, inactivated Daniella Reina MD Work Phone: [facility] 2000 poliovirus vaccine, unspecified formulation Darin RICHARD [facility] 2000 hepatitis B vaccine, pediatric or pediatric/adolescent dosage Daniella Reina MD Work Phone: [facility] NEGATED: Highlighted row has not occurred!04-11-2019 influenza, injectable, quadrivalent, preservative free Daniella Reina MD Work Phone: [facility] Comment on above: Deferred: Patient de cision Payers Date Payer Category Payer Private Health Insurance [id number] 2022 [facility] BCBS [id number] 2022 [facility] Managed Care - PPO ANTHEM [id number] 2022 Unknown [id number] 2021 Unknown [id number] 2000 Unknown [id number] 2.16.840.1.216884.3.579. 2.593 2000 Unknown [id number] 2.16.840.1.865761.3.579. 2.727 2000 Unknown [id number] 2.16.840.1.510849.3.579. 2.128 2000 Unknown [id number] 2.16.840.1.980724.3.579. 2.128 2000 Unknown [id number] 2.16.840.1.796471.3.579. 2.72 2000 Unknown [id number] 2.16.840.1.190065.3.579. 2.727 2000 Unknown [id number] 2.16.840.1.272963.3.579. 2.128 2000 Unknown [id number] 2.16.840.1.433800.3.579. 2.1258 2000 Unknown [id number] 2.16.840.1.651689.3.579. 2.1258 2000 Unknown [id number] 2.16.840.1.069122.3.579. 2.1258 2000 Unknown [id number] 2.16.840.1.493658.3.579. 2.1258 2000 Unknown [id number] 2.16.840.1.368891.3.579. 2.1258 2000 Unknown [id number] 2.16.840.1.786772.3.579. 2.1258 2000 Unknown [id number] 2.16.840.1.287390.3.579. 2.1258 2000 Unknown [id number] 2.16.840.1.835781.3.579. 2.1258 2000 Unknown [id number] 2.16.840.1.288956.3.579. 2.1258 2000 Unknown [id number] 2.16.840.1.658038.3.579. 2.1259 2000 Unknown [id number] 2.16.840.1.545658.3.579. 2.1259 2000 Unknown [id number] 2.16.840.1.382863.3.579. 2.1259 2000 Unknown [id number] 2.16.840.1.963775.3.579. 2.1259 1959 Unknown [id number] Social History Date Type Detail Facility Start: 11-08-2022 End: 10-07-2024 Tobacco smoking status CTIS Never smoked tobacco [facility] Start: 11-08-2022 End: 04-12-2023 Tobacco use and exposure Smokeless tobacco non-user [facility] Start: 04-12-2023 End: 04-18-2023 Alcohol intake Lifetime non-drinker (finding) [facility] Start: 05-17-2023 End: 05-24-2023 History of [...] typical day? 3 or 4 [facility] How often do you hav e 6 or more drinks on 1 occasion? Less than monthly [facility] How hard is it for y ou to pay for the very basics like food, housing, medical care, and heating Not hard at all [facility] Do you feel stress - tense, restless, nervous, or anxious, or unable to sleep at night because your mind is troubled all the time - these days [OSQ] Not at all [facility] (I/We) worried wheth er (my/our) food would run out before (I/we) got money to buy more. Never true [facility] Start: 08-15-2022 [facility] Start: 2000 Sex Assigned At Female P [facility] Start: 10-07-2022 Gender identity Identifies as female gender (finding) [facility] Start: 10-07-2022 Sexual orientation Heterosexual (fin laura) [facility] Start: 05-24-2023 End: 01-14-2025 Alcohol intake Ex-drinker (finding) [facility] Are you now , , , , never or living with a partner? Living with partner [facility] How hard is it for y ou to pay for the very basics like food, housing, medical care, and heating Not very hard [facility] Do you feel stress - tense, restless, nervous, or anxious, or unable to sleep at night because your mind is troubled all the time - these days [OSQ] Very much [facility] Start: 01-31-2021 Education 21 [facility] Start: 11-18-2014 Sex Female (finding) [facility] Sexual Orientation [facility] NEGATED: Highlighted rowStart: NINF History of tobacco use Passive smoker [facility] Medical Equipment Procedure Code Equipment Code Equipment Origin al Text Equipment Identifier Dates Check blood suga r 4-5 times daily, fasting and 1 hour after meals. Use as directed. Dispense per insurance preference. [id number] Start: 04-12-2023 1 strip by miscellaneous route in the morning and 1 strip at noon and 1 strip in the evening and 1 strip before bedtime. Check blood sugar 4-5 times daily, fasting and 1 hour after meals. Use as directed. Dispense per insurance preference.. [id number] Start: 04-12-2023 Clinical Notes 04-12-2023 to 01-23-2025 Britney Smith NP - 01/23/2025 10:20 AM Sarthak Smith NP - 01/14/2025 9:20 AM DIMAS Florentino - 01/06/2025 10:20 AM Madi Christensen LPN - 12/24/2024 10:00 AM EDT Note Date & Type Note Facility 01-23-2025 History of Presen t illness Narrative Reason for Appointment: Patient ID: Hesham Avalos is a 24 y.o. female who presents for Routine Visit Patient presents today for Return OB appointment. MEDICATIONS Current Outpatient Medications Medication Instructions Ferrous Gluconate (IRON 27 PO) 1 each, Daily Oteapvqq-Gew-Bg-FA (PRE- PO) 1 each, Daily ALLERGIES No Known Allergies PROBLEMS Active Ambulatory Problems Diagnosis Date Noted History of placental abnormality 12/24/2024 Resolved Ambulatory Problems Diagnosis Date Noted Obesity affecting in second trimester ([facility]) 01/27/2023 Velamentous insertion of umbilical cord in second trimester ([facility]) 01/27/2023 Past Medical History: Diagnosis Date 6 weeks follow-up ([facility]) HISTORY PAST MEDICAL HISTORY SOCIAL HISTORY Past Medical History: Diagnosis Date 6 weeks follow-up ([facility]) Social History Tobacco Use Smoking status: [...] nursing note reviewed. Exam conducted with a claims customer service representative present. Vitals: Estimated body mass index is 39.82 kg/m as calculated from the following: Height as of 11/21/23: 5' 4 . Weight as of this encounter: 232 lb. BP: 124/72 Patient's last menstrual period was 05/06/2024. ASSESSMENT & PLAN ICD-10-CM 1. Third trimester ([facility]) Z34.93 POCT urinalysis dipstick manually resulted 2. 37 weeks gestation of ([facility]) Z3A.37 Return OB: Patient presents today for [...] week for routine OB appointment. Documented by Britney Smith NP on behalf of: Britney Smith NP documented in this encounter [facility] 01-14-2025 History of Presen t illness Narrative Reason for Appointment: Patient ID: Hesham Avalos is a 24 y.o. female who presents for Routine Visit Patient presents today for Return OB appointment. MEDICATIONS Current Outpatient Medications Medication Instructions Ferrous Gluconate (IRON 27 PO) 1 each, Daily Lwwcnjgt-Vyw-Jv-FA (PRE-SIGIFREDO PO) 1 each, Daily ALLERGIES No Known Allergies PROBLEMS Active Ambulatory Problems Diagnosis Date Noted History of placental abnormality 12/24/2024 Resolved Ambulatory Problems Diagnosis Date Noted Obesity affecting in second trimester ([facility]) 01/27/2023 Velamentous insertion of umbilical cord in second trimester ([facility]) 01/27/2023 Past Medical History: Diagnosis Date 6 weeks follow-up ([facility]) HISTORY PAST MEDICAL HISTORY SOCIAL HISTORY Past Medical History: Diagnosis Date 6 weeks follow-up ([facility]) Social History Tobacco Use Smoking status: [...] nursing note reviewed. Exam conducted with a claims customer service representative present. Vitals: Estimated body mass index is 39.48 kg/m as calculated from the following: Height as of 24: 5' 4 . Weight as of this encounter: 230 lb. BP: 122/68 Patient's last menstrual period was 05/06/2024. ASSESSMENT & PLAN ICD-10-CM 1. Third trimester ([facility]) Z34.93 POCT urinalysis dipstick manually resulted CULTURE, GROUP B STREP WITH SUSCEPTIBLITY CULTURE, GROUP B STREP WITH SUSCEPTIBLITY 2. 36 weeks gestation of ([facility]) Z3A.36 Patient is doing well but [...] Britney Smith NP documented in this encounter [facility] 01-06-2025 History of Presen t illness Narrative Reason for Appointment: Patient ID: Hesham Avalos is a 24 y.o. female who presents for Routine Visit Patient presents today for Return OB appointment. MEDICATIONS Current Outpatient Medications Medication Instructions Ferrous Gluconate (IRON 27 PO) 1 each, Daily Rzvjsyiy-Dfv-Gx-FA (PRE- PO) 1 each, Daily ALLERGIES No Known Allergies PROBLEMS Active Ambulatory Problems Diagnosis Date Noted History of placental abnormality 12/24/2024 Resolved Ambulatory Problems Diagnosis Date Noted Obesity affecting in second trimester ([facility]) 01/27/2023 Velamentous insertion of umbilical cord in second trimester ([facility]) 01/27/2023 Past Medical History: Diagnosis Date 6 weeks follow-up ([facility]) HISTORY PAST MEDICAL HISTORY SOCIAL HISTORY Past Medical History: Diagnosis Date 6 weeks follow-up ([facility]) Social History Tobacco Use Smoking status: [...] ASSESSMENT & PLAN ICD-10-CM 1. Third trimester ([facility]) Z34.93 POCT urinalysis dipstick manually resulted 2. 35 weeks gestation of ([facility]) Z3A.35 Return OB: Patient presents today [...] of: DIMAS Cormier documented in this encounter [facility] 12-24-2024 History of Presen t illness Narrative Reason for Appointment: Patient ID: Hesham Avalos is a 24 y.o. female who presents for Routine Visit Patient presents today for Return OB appointment. MEDICATIONS Current Outpatient Medications Medication Instructions Ferrous Gluconate (IRON 27 PO) 1 each, Daily Dxpyksek-Aue-Tg-FA (PRE-SIGIFREDO PO) 1 each, Daily ALLERGIES No Known Allergies PROBLEMS Active Ambulatory Problems Diagnosis Date Noted History of placental abnormality 12/24/2024 Resolved Ambulatory Problems Diagnosis Date Noted Obesity affecting in second trimester ([facility]) 01/27/2023 Velamentous insertion of umbilical cord in second trimester ([facility]) 01/27/2023 Past Medical History: Diagnosis Date 6 weeks follow-up ([facility]) HISTORY PAST MEDICAL HISTORY SOCIAL HISTORY Past Medical History: Diagnosis Date 6 weeks follow-up ([facility]) Social History Tobacco Use Smoking status: [...] nursing note reviewed. Exam conducted with a claims customer service representative present. Vitals: Estimated body mass index is 39.31 kg/m as calculated from the following: Height as of 11/21/23: 5' 4 . Weight as of this encounter: 229 lb. BP: 124/70 Patient's last menstrual period was 05/06/2024. ASSESSMENT & PLAN ICD-10-CM 1. Third trimester ([facility]) Z34.93 POCT urinalysis dipstick manually resulted 2. 33 weeks gestation of ([facility]) Z3A.33 3. History of placental abnormality [...] Don Hidalgo DO documented in this encounter [facility] 12-12-2024 History of Presen t illness Narrative Reason for Appointment: Patient ID: Hesham Avalos is a 24 y.o. female who presents for Routine Visit Patient presents today for Return OB appointment. MEDICATIONS Current Outpatient Medications Medication Instructions Ferrous Gluconate (IRON 27 PO) 1 each, Daily Gvamkxsv-Dxq-Lw-FA (PRE-SIGIFREDO PO) 1 each, Daily ALLERGIES No Known Allergies PROBLEMS Active Ambulatory Problems Diagnosis Date Noted No Active Ambulatory Problems Resolved Ambulatory Problems Diagnosis Date Noted Obesity affecting in second trimester ([facility]) 01/27/2023 Velamentous insertion of umbilical cord in second trimester ([facility]) 01/27/2023 Past Medical History: Diagnosis Date 6 weeks follow-up ([facility]) HISTORY PAST MEDICAL HISTORY SOCIAL HISTORY Past Medical History: Diagnosis Date 6 weeks follow-up ([facility]) Social History Tobacco Use Smoking status: [...] ASSESSMENT & PLAN ICD-10-CM 1. Third trimester ([facility]) Z34.93 POCT urinalysis dipstick manually resulted 2. 31 weeks gestation of ([facility]) Z3A.31 Return OB: Patient presents today [...] of: DIMAS Cormier documented in this encounter [facility] 11-28-2024 History of Presen t illness Narrative Reason for Appointment: Patient ID: Hesham Avalos is a 24 y.o. female who presents for Routine Visit Patient presents today for Return OB appointment. MEDICATIONS Current Outpatient Medications Medication Instructions Ferrous Gluconate (IRON 27 PO) 1 each, Daily Wddcmxzl-Luf-Oj-FA (PRE- PO) 1 each, Daily ALLERGIES No Known Allergies PROBLEMS Active Ambulatory Problems Diagnosis Date Noted No Active Ambulatory Problems Resolved Ambulatory Problems Diagnosis Date Noted Obesity affecting in second trimester ([facility]) 01/27/2023 Velamentous insertion of umbilical cord in second trimester ([facility]) 01/27/2023 Past Medical History: Diagnosis Date 6 weeks follow-up ([facility]) HISTORY PAST MEDICAL HISTORY SOCIAL HISTORY Past Medical History: Diagnosis Date 6 weeks follow-up ([facility]) Social History Tobacco Use Smoking status: [...] nursing note reviewed. Exam conducted with a claims customer service representative present. Vitals: Estimated body mass index is 38.62 kg/m as calculated from the following: Height as of 24: 5' 4 . Weight as of this encounter: 225 lb. BP: 118/74 Patient's last menstrual period was 05/06/2024. ASSESSMENT & PLAN ICD-10-CM 1. Third trimester ([facility]) Z34.93 POCT urinalysis dipstick manually resulted 2. 29 weeks gestation of ([facility]) Z3A.29 Patient presents today for a [...] Don Hidalgo DO documented in this encounter [facility] 11-14-2024 History of Presen t illness Narrative Reason for Appointment: Patient ID: Hesham Avalos is a 24 y.o. female who presents for Routine Visit Patient presents today for Return OB appointment. MEDICATIONS Current Outpatient Medications Medication Instructions Ferrous Gluconate (IRON 27 PO) 1 each, Daily Cjvhgtuq-Rtv-Me-FA (PRE- PO) 1 each, Daily ALLERGIES No Known Allergies PROBLEMS Active Ambulatory Problems Diagnosis Date Noted No Active Ambulatory Problems Resolved Ambulatory Problems Diagnosis Date Noted Obesity affecting in second trimester ([facility]) 01/27/2023 Velamentous insertion of umbilical cord in second trimester ([facility]) 01/27/2023 Past Medical History: Diagnosis Date 6 weeks follow-up ([facility]) HISTORY PAST MEDICAL HISTORY SOCIAL HISTORY Past Medical History: Diagnosis Date 6 weeks follow-up ([facility]) Social History Tobacco Use Smoking status: [...] ASSESSMENT & PLAN ICD-10-CM 1. Second trimester ([facility]) Z34.92 POCT urinalysis dipstick manually resulted 2. 27 weeks gestation of ([facility]) Z3A.27 Return OB: Patient presents today [...] of: DIMAS Cormier documented in this encounter [facility] 10-17-2024 History of Presen t illness Narrative Reason for Appointment: Patient ID: Hesham Avalos is a 24 y.o. female who presents for Routine Visit Patient presents today for Return OB appointment. MEDICATIONS Current Outpatient Medications Medication Instructions Ferrous Gluconate (IRON 27 PO) 1 each, Daily Nfuthtcm-Zrd-Om-FA (PRE-SIGIFREDO PO) 1 each, Daily ALLERGIES No Known Allergies PROBLEMS Active Ambulatory Problems Diagnosis Date Noted No Active Ambulatory Problems Resolved Ambulatory Problems Diagnosis Date Noted Obesity affecting in second trimester ([facility]) 01/27/2023 Velamentous insertion of umbilical cord in second trimester ([facility]) 01/27/2023 Past Medical History: Diagnosis Date 6 weeks follow-up ([facility]) HISTORY PAST MEDICAL HISTORY SOCIAL HISTORY Past Medical History: Diagnosis Date 6 weeks follow-up ([facility]) Social History Tobacco Use Smoking status: [...] nursing note reviewed. Exam conducted with a claims customer service representative present. Vitals: Estimated body mass index is 38.66 kg/m as calculated from the following: Height as of 24: 5' 4 . Weight as of this encounter: 225 lb 4 oz. BP: 114/58 Patient's last menstrual period was 05/06/2024. ASSESSMENT & PLAN ICD-10-CM 1. Second trimester ([facility]) Z34.92 POCT urinalysis dipstick manually resulted 2. 23 weeks gestation of ([facility]) Z3A.23 3. Diabetes mellitus screening Z13.1 CBC Glucose tolerance, 1 hour CBC Glucose tolerance, 1 hour Patient presents today for a routine obstetrics appointment. Patient is currently 23w3d with a Estimated Date of Delivery: 02/10/25. Patient given orders for CBC/1hour gtt and is scheduled for with [facility] for repeat US. Patient to return to clinic in 4 weeks for return OB appointment. Documented by Franci Boyd LPN on behalf of: Don Hidalgo DO documented in this encounter [facility] 10-07-2024 Hospital Discharg e instructions Patient Education [...] care provider who specializes in women's health (bleach maker). How is this treated? Treatment for this [...] partner about your condition. General instructions Take clsq-nrs-xrmbmri and prescription medicines only as told by [...] sexual activity until your symptoms improve. Take raae-yxn-zbkhtef and prescription medicines only as told by [...] provider. Document Revised: 2021 Document Reviewed: 2021 [employer] Patient Education 2023 [employer]. Follow Up Care 08/08/2024 12:40:44 With:TINO MACK, Darin Cummins, URL Address: [facility] [address] , [place] [address] [phone] When: only if needed [facility] 10-07-2024 Note Patient Education Obstetrics [...] care provider who specializes in women's health (bleach maker). How is this treated? Treatment for this [...] about your condition. General instructions ??? Take xdny-fto-rryugst and prescription medicines only as told by [...] activity until your symptoms improve. ??? Take yfao-ajz-yvecaip and prescription medicines only as told by your health care provider. ??? Contact a health care provider if your symptoms get worse or do not improve with treatment. ??? Keep all follow-up visits. This is important. This information is not intended to replace (more content not included)... [facility] 09-23-2024 History of Presen t illness [...] GENDER Have you been seen here at [facility] in a previous ? No Recent ER visits or hospitalizations? No Bring blood sugar log or meter with you today? (Please bring them with you for every visit at [facility]) n/a Flu vaccine (Feb-June)? No Any [...] insurance preference.., Disp: 100 each, Rfl: 1 alw679-drwx-tanzy-cm1 (DUET DHA WITH OMEGA-3) 25 mg iron-1 mg -400 mg combo pack, Take by mouth., Disp: , Rfl: ferrous sulfate (HIGH POTENCY IRON) 27 mg iron tablet, Take by mouth. (Patient not taking: Reported on 09/23/2024), Disp: , Rfl: oot997-srqw-xupmi-tb0 25 mg iron-1 mg -400 mg combo [...] 39 weeks 8. Delivery method preferred vaginal. [place] C/S for usual obstetrical indications TIME OF CONSULTATION: We spent 30 minutes with the patient, >50% in discussion and counseling, coordination of care which was lvbq-cv-eglh. documented in this encounter [facility] 09-17-2024 History of Presen t illness Narrative Reason for Appointment: Patient ID: Hesham Avalos is a 24 y.o. female who presents for Routine Visit Patient presents today for Acute Visit. and Return OB appointment. MEDICATIONS Current Outpatient Medications Medication Instructions Ferrous Gluconate (IRON 27 PO) 1 each, Daily Fxrohphg-Vnd-Xy-FA (PRE-SIGIFREDO PO) 1 each, Daily ALLERGIES No [...] Gluconate (IRON 27 PO) 1 each, Daily Qfiehhyd-Xzr-Te-FA (PRE-SIGIFREDO PO) 1 each, Daily ALLERGIES No [...] nursing note reviewed. Exam conducted with a claims customer service representative present. Vitals: Estimated body mass index is [...] of: DIMAS Cormier documented in this encounter [facility] 08-20-2024 History of Presen t illness Narrative Reason for Appointment: Patient ID: Hesham Avalos is a 24 y.o. female who presents for Routine Visit Patient presents today for Return OB appointment. MEDICATIONS Current Outpatient Medications Medication Instructions Ferrous Gluconate (IRON 27 PO) 1 each, Daily Nnujwksw-Fug-Cz-FA (PRE-SIGIFREDO PO) 1 each, Daily ALLERGIES No [...] nursing note reviewed. Exam conducted with a claims customer service representative present. Vitals: Estimated body mass index is [...] Date of Delivery: 02/10/25. Pt to see [facility] in September for anatomy scan. Pt given early one hour. Pt to return in 4 weeks for scheduled ob appt. Pt advised to take a baby aspirin. Documented by Brittany Christensen LPN on behalf of: Don Hidalgo DO documented in this encounter [facility] 08-05-2024 Note Patient Education Urology Cystoscopy Cystoscopy [...] including vitamins, herbs, eye drops, creams, and vmrl-hvk-thnouju medicines. ??? Any problems you or family [...] tells you to take them. ??? Taking izpd-ufd-arjbemp medicines, vitamins, herbs, and supplements. Tests You [...] these instructions at home: Medicines ??? Take ragu-ozo-svjscrg and prescription medicines only as told by [...] (biopsy) during your (more content not included)... [facility] 07-23-2024 History of Presen t illness Narrative Reason for Appointment: Patient ID: Hesham Avalos is a 23 y.o. female who presents for No chief complaint on file. Patient presents today for Return OB appointment. MEDICATIONS Current Outpatient Medications Medication Instructions Ferrous Gluconate (IRON 27 PO) 1 each, Daily Izxcbiqj-Oqy-Jo-FA (PRE-SIGIFREDO PO) 1 each, Daily ALLERGIES No [...] nursing note reviewed. Exam conducted with a claims customer service representative present. Vitals: Estimated body mass index is [...] or undercooked meat, and stay away from [facility]. Patient has been consulted regarding any further do's and don'ts of . Patient voiced understanding and all questions and concerns were answered. Cultures obtained. Pt being referred to [facility] for h/o placental abnormality (vasa previa). Pt has cyst on urethra- referred to urologist Orders Placed This Encounter Procedures CHLAMYDIA TRACHOMATIS (GENITO/STI) Neisseria gonorrhea DNA probe, direct POCT urinalysis dipstick manually resulted Follow Up: Patient is to return in 4 weeks for routine OB appointment. Documented by Brittany Christensen LPN on behalf of: Don Hidalgo DO documented in this encounter [facility] 05-24-2023 History of Presen t illness Narrative Hesham Avalos is a 22 y.o. female presents with chief complaint of Establish Care HPI: Patient presents today for GRADE RECORDER appointment- to establish care with new provider. SUBJECTIVE: MEDICATIONS: Current Outpatient Medications Medication Instructions Chdfxv-FzWihv-Iiono-FA-[place] 3 (Duet DHA 400) 25-1 & 400 [...] tenderness or frontal sinus tenderness. Mouth/Throat: Lips: [place]. Mouth: Mucous membranes are moist. Pharynx: Oropharynx [...] follow-ups on file. 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 Patient does have ultrasound and office visit scheduled with us. Thank you for allowing me to participate in the care of Hesham Avalos. If there any questions please do not hesitate to contact us. Daniella Reina MD Maternal- Medicine [facility] [address] [facility] 1[address] Floor [place] [id number] [facility], the CDC, and other organizations representing maternal and public health professionals recommend that , , and lactating people and those considering receive the COVID-19 vaccination. Vaccination is the best method to reduce maternal and complications of SARS-CoV-2 infection. This document was created with [employer] technology. Though I make every effort to review the dictation as it is transcribed, on occasion the spoken word can be misinterpreted by the technology leading to inappropriate words, phrases, or sentences. This note is addressed to the requesting provider as a consultation for clinical guidance. Specific medical abbreviations are occasionally used and those are generally approved by the [place]?Board of?Obstetrics and?Gynecology?as well as?[employer] abbreviations. The above plan of care was based solely on the diagnoses for which a consultation was requested. ?More frequent testing may be indicated based on her other medical/obstetrical conditions. The management of other or medical conditions is beyond the scope of requested consultation and will continue to be followed by the primary regional intermodal truck driver or primary care provider. Note to patient: [...] of the practitioner. documented in this encounter [employer] Evaluation + Plan note No data available for this section [facility] Evaluation note Diagnosis Encounter for wellness examination- Primary Anemia, unspecified type documented in this encounter [facility]* Diagnosis 35 weeks gestation of - Primary Polyhydramnios affecting documented in this encounter [facility]* Diagnosis 11 weeks gestation [...] obesity type- Primary documented in this encounter [facility] [employer] SystemEvaluation note* Diagnosis Polyhydramnios affecting - Primary Low-lying placenta Hemorrhage from placenta previa, unspecified as to episode of care Placenta previa in second trimester Velamentous insertion of umbilical cord in second trimester Vasa previa, single or unspecified fetus History of hemorrhage, currently in second trimester documented in this encounter [facility] [employer] SystemEvaluation note* Diagnosis Second trimester state, incidental [...] note* Diagnosis Third trimester ([facility]) state, incidental 37 weeks gestation of ([facility]) documented in this encounter [facility] HealthcareInstructionsNot on filedocumented in this encounterPro[facility]ica Health SystemInstructionsNot on filedocumented in this encounterProMedica Health SystemInstructionsNot on filedocumented in this encounterProMedica Health SystemInstructionsNot on filedocumented in this encounterProMedica Health System Progress note No data available for this section [facility] Summary Purpose Family History No Family [...] rosales Referred To Contact Daniella Reina MD [address] [place] [address] Referral ID Status Reason Start Date Expiration Date V isits Requested Visits Authorized [id number] Pending Review 1 1 Referral ID Status Reason Start Date Expiration Date V isits Requested Visits Authorized [id number] Pending Review 1 1 Additional Source Comments INFORMATION SOURCE (unrecogn ized section and content) DATE CREATED AUTHOR 10/05/2018 [facility] DATE CREATED AUTHOR AUTHOR'S ORGANIZ ATION 04/13/2022 [facility] DATE CREATED AUTHOR AUTHOR'S ORGANIZ ATION 07/27/2024 Covarrubias Marcelino [facility] DATE CREATED AUTHOR AUTHOR'S ORGANIZ ATION 09/24/2024 [facility] DATE CREATED AUTHOR AUTHOR'S ORGANIZ ATION 10/08/2024 Covarrubias Gonzales [facility] DATE CREATED AUTHOR AUTHOR'S ORGANIZ ATION 10/29/2024 [facility] DATE CREATED AUTHOR AUTHOR'S ORGANIZ ATION 01/19/2025 [facility] [employer] Care Teams (unrecognized sec tion and content) Char Dust Cleaner And Salvager Relationship Specialty Start Date End Date Taisha Pena MD [address] [place] [address] PCP - General Family Medicine 05/03/23 Char Dust Cleaner And Salvager Relationship Specialty Start Date End Date Taisha Pena MD [address] [facility] [place] [address] PCP - General Family Medicine 05/03/23 Char Dust Cleaner And Salvager Relationship Specialty Start Date End Date Taisha Pena MD [address] [facility] [place] [address] PCP - General Family Medicine 05/03/23 Char Dust Cleaner And Salvager Relationship Specialty Start Date End Date Taisha Pena MD [address] [facility] [place] [address] PCP - General Family Medicine 05/03/23 Char Dust Cleaner And Salvager Relationship Specialty Start Date End Date Taisha Pena MD [address] [facility] [place] [address] PCP - General Family Medicine 05/03/23 Char Dust Cleaner And Salvager Relationship Specialty Start Date End Date Taisha Pena MD [address] [place] [address] PCP - General Family Medicine 05/03/23 Char Dust Cleaner And Salvager Relationship Specialty Start Date End Date Taisha Pena MD [address] [place] [address] PCP - General Family Medicine 05/03/23 Char Dust Cleaner And Salvager Relationship Specialty Start Date End Date Taisha Pena MD [address] [place] [address] PCP - General Family Medicine 05/03/23 Stephanie Sotelo NP [address] [place] [address] PCP - [place] [employer] 07/16/24 Char Dust Cleaner And Salvager Relationship Specialty Start Date End Date Taisha Pena MD [address] [place] [address] PCP - General Family Medicine 05/03/23 Stephanie Sotelo NP [address] [place] [address] PCP - [place] [employer] 07/16/24 Char Dust Cleaner And Salvager Relationship Specialty Start Date End Date Taisha Pena MD [address] [place] [address] PCP - General Family Medicine 05/03/23 Stephanie Sotelo NP [address] [place] [address] PCP - [place] [employer] 07/16/24 Char Dust Cleaner And Salvager Relationship Specialty Start Date End Date Taisha Pena MD [address] [place] [facility] [place] [address] PCP - General Family Medicine 05/03/23 Stephanie Sotelo NP [address] [place] [address] PCP - [place] [employer] 07/16/24 Char Dust Cleaner And Salvager Relationship Specialty Start Date End Date Taisha Pena MD [address] [place] [facility] [address] PCP - General Family Medicine 05/03/23 Stephanie Sotelo NP [address] [place] [facility] [address] PCP - [place] [employer] 07/16/24 Char Dust Cleaner And Salvager Relationship Specialty Start Date End Date Taisha Pena MD [address] [place] [facility] [address] PCP - General Family Medicine 05/03/23 Stephanie Sotelo NP [address] [place] [address] PCP - [place] [employer] 07/16/24 Char Dust Cleaner And Salvager Relationship Specialty Start Date End Date Taisha Pena MD [address] [place] [address] PCP - General Family Medicine 05/03/23 Stephanie Sotelo NP [address] [place] [address] RELL Eduardo 07/16/24 Reason for Visit (unrecogniz ed [...] BE BASED ON THE PRIMARY CLINICAL RECORDS. [facility] [employer] provides no warranty or guarantee of the accuracy or completeness of information in this document.
--- NOTE | 2025-01-25 10:06 | US_ITS ---
[place] [id number] Patient Name: HESHAM TAYLOR MRN: [id number] date: 2000 Sex: F Assigned Patient Location: [facility] Current Patient Location: Accession/Order Number: [id number] Exam Date: 01/25/2025 10:07 Report Date: 01/25/2025 11:11 At the request of: BRITNEY VARELA Procedure: US OB BPP w non-stress Ultrasound biophysical profile INDICATION: Excessive growth Findings and impression: 11/22 score biophysical profile and ZEB measures 20.9 cm. heart rate 139 beats per minutes. Impression dictated by: Juan M Newman M.D. 01/25/2025 11:11 AM Dictation Location: [place] [address] Electronically authenticated by: [id number] Y Date: 01/25/2025 11:11
[2025-01-25 10:23] VITALS: TEMP 36.7
[2025-01-25 10:24] VITALS: BP 126/63; PULSE 93
== END 2025-01-25 10:59 | disposition home or self-care (01) ==
LOC: US 09:59 → FBC 10:00
PROVIDERS: PCP Family Medicine; Visit Provider Nurse Practitioner Family
DX: O26.893 Other specified pregnancy related conditions, third trimester (principal); Z3A.37 37 weeks gestation of pregnancy
CPT/HCPCS: 76818

== ENCOUNTER 2025-01-29 12:59 | Outpatient (OUT) | payer BC, SELFPAY ==
--- OUTSIDE RECORDS SUMMARY | 2025-01-29 13:10 | XMS_ITS | CCD ---
Author Organization [facility] Care Team Providers Care Transport Tank Technician Name Role Phone DR DON HIDALGO Admitting [...] Unavailable ROCKY, Don R Referring Unavailable Ashleigh VIDEO PHOTOGRAPHER, Stephanie Villagran Unavailable ROCKY, DON R Referring Unavailable ROCKY, DON Attending Unavailable ROCKY, DON Attending Unavailable JESUS, KATHIE Attending Unavailable ROCKY, DON Attending Unavailable JESUS, KATHIE Attending Unavailable ROCKY, DON Attending Unavailable JESUS, KATHIE Attending Unavailable ROCKY, DON Attending Unavailable JESUS, KATHIE Attending Unavailable ROCKY, DON Referring Unavailable BRITNEY SMITH Attending Unavailable BRITNEY SMITH Attending Unavailable Medications Current [...] procedure, # 2 cap(s), Refills(s) 0, Pharmacy: [facility] [id number], 163, cm, 08/05/24 13:19:00 EDT, Height/Length Dosing, [...] mg iron tablet Take by mouth. Active Ygbhtc-XmOdtb-Wxsnn-FA-[place] 3 (Duet DHA 400) 25-1 & 400 MG misc (2 sources) Fufmjl-CpSubs-Wt wbg-RK-Cotbs 3 (Duet DHA 400) 25-1 & 400 MG misc Take by mouth. 0 Active Gjjrpmyq-Twq-Rv-FA (PRE- PO) (20 sources) take 1 dose by mouth once daily Rwkuudrl-Drl-Go-FA (PRE- PO) Take 1 each by mouth Daily Active Multivitamins (1 source) Start : 07-31 take 1 tablet by mouth once daily Multivitamins 1 tab(s), Oral, Daily, Refill(s) 0 Start Date: 07/31/24 Status: Ordered Repeat number: 1 xul225-abmz-nemuf-r m3 (DUET DHA WITH OMEGA-3) 25 mg iron-1 mg -400 mg combo pack (4 sources) atf473- rgtr-zbjvq-ws8 (DUET DHA WITH OMEGA-3) 25 mg iron-1 mg -400 mg combo pack Take by mouth. Active itt704- pcij-xqqzr-et5 (DUET DHA WITH OMEGA-3) 25 mg iron-1 mg -400 mg combo pack Take by mouth. 0 Active hmj475-nezp-ojzvg-m m3 25 mg iron-1 mg -400 mg combo pack (4 sources) oej289- qqbq-suwbl-nt8 25 mg iron-1 mg -400 mg combo pack Take by mouth. Active bol322- lcuw-dqkos-ol7 25 mg iron-1 mg -400 mg combo [...] of ] 07-23-2024 Episodic Residual codes; unclassified (20 sources) H/O: Disorder; Translations: [Personal history of [...] Test Name Value Interpretation Reference Range Facility US OB BPP W NON-STRESS on 01-25-2025 [place] [address] Ultrasound Report Signed Patient: HESHAM AVALOS MR#: [id number] : 2000 Acct:[id number] Age/Sex: 24 / F ADM Date: 01/25/25 Loc: US Attending Dr: Brintey Smith Ordering Physician: Britney Smith Date of Service: 01/25/25 Procedure(s): US OB BPP w non-stress Accession Number(s): [id number] cc: Britney Smith; TAISHA PENA [place] [id number] Patient Name: HESHAM AVALOS MRN: [facility]:[id number] date: 2000 Sex: F Assigned Patient Location: [facility] Current Patient Location: Accession/Order Number: [id number] Exam Date: 01/25/2025 10:07 Report Date: 01/25/2025 11:11 At the request of: BRITNEY SMITH Procedure: US OB BPP w non-stress Ultrasound biophysical profile INDICATION: Excessive growth Findings and impression: 11/22 score biophysical profile and ZEB measures 20.9 cm. heart rate 139 beats per minutes. Impression dictated by: Juan M Newman M.D. 01/25/2025 11:11 AM Dictation Location: [place] [address] Electronically authenticated by: [id number] Y Date: 01/25/2025 11:11 Dictated By: Juan M Newman M.D. Signed By: 01/25/25 1114 DD/ 1111 TD/TT: Transfer Driver: [facility] Radiology, Radiologist, MD - 01/25/2025 [place] [address] Ultrasound Report Signed Patient: HESHAM AVALOS MR#: [id number] : 2000 Acct:[id number] Age/Sex: 24 / F ADM Date: 01/25/25 Loc: US Attending Dr: Britney Smith Ordering Physician: Britney Smith Date of Service: 01/25/25 Procedure(s): US OB BPP w non-stress Accession Number(s): [id number] cc: Britney Smith; TAISHA PENA [place] [id number] Patient Name: HESHAM AVALOS MRN: [facility]:[id number] date: 2000 Sex: F Assigned Patient Location: [facility] Current Patient Location: Accession/Order Number: [id number] Exam Date: 01/25/2025 10:07 Report Date: 01/25/2025 11:11 At the request of: BRITNEY SMITH Procedure: US OB BPP w non-stress Ultrasound biophysical profile INDICATION: Excessive growth Findings and impression: 11/22 score biophysical profile and ZEB measures 20.9 cm. heart rate 139 beats per minutes. Impression dictated by: Juan M Newman M.D. 01/25/2025 11:11 AM Dictation Location: [place] [address] Electronically authenticated by: [id number] Y Date: 01/25/2025 11:11 Dictated By: Juan M Newman M.D. Signed By: 01/25/25 1114 DD/ 1111 TD/TT: Transfer Driver: [facility] Radiology Study observation (narrative) [facility] US OB BPP W NON-STRESS Ordered By: Radiologist Radiology on 01-25-2025 [facility] Work Phone: Urinalysis macro (dipstick) panel (U)on 01-23-2025 Bilirubin, UA Negative Negative - 4(70) +++ mg/dL [facility] Blood, UA Positive Negative - 50 Eulogio/mcL [facility] Comment on above: 3+ Clarity, UA Clear [facility] re Color, UA Yellow [facility] Glucose, UA Negative Negative - 1999(110) ++++ mg/dL [facility] Interpretation and review of laboratory results Abnormal [facility] Ketones, UA Negative Negative - 160(16) ++++ mg/dL [facility] Leukocytes, UA Negative Negative - 500+++ Rufina/mcL [facility] Nitrite, UA Negative Negative - Positive [facility] pH, UA 6.5 5 - 9 [facility] Protein, UA Negative Negative - 1999(20) ++++ mg/dL [facility] Spec Grav, UA 1.02 1 - 1.03 [facility] Urobilinogen, UA 0.2 0.2 - 12 mg/dL [facility] STREP GP B CULTURE+RFLXon STREP GP B CULTURE+RFLX Strep Gp B Culture+Rflx [facility] STREP GP B CULTURE+RFLX Negative [facility] STREP GP B CULTURE+RFLX Centers for Disease Control and Prevention (CDC) and [facility] STREP GP B CULTURE+RFLX [place] [employer] [facility] STREP GP B CULTURE+RFLX (ACOG) guidelines for prevention of group B [facility] STREP GP B CULTURE+RFLX streptococcal (GBS) disease specify co-collection of [facility] STREP GP B CULTURE+RFLX a vaginal and [...] a high risk for anaphylaxis. Treatment with [facility] STREP GP B CULTURE+RFLX vancomycin without additional testing is warranted if [facility] STREP GP B CULTURE+RFLX resistance to clindamycin is noted. [facility] STREP GP B CULTURE+RFLX Performed at: [facility] STREP GP B CULTURE+RFLX [address] [place] [address] [phone] [facility] Healthcare STREP GP B CULTURE+RFLX [employer] Supervisor: Andrade Curry PhD, Phone: [phone] [facility] US OB BPP W NON-STRESS on 01-18-2025 [place] [address] Ultrasound Report Signed Patient: HESHAM AVALOS MR#: [id number] : 2000 Acct:[id number] Age/Sex: 24 / F ADM Date: 01/18/25 Loc: US Attending Dr: Britney Smith Ordering Physician: Britney Smith Date of Service: 01/18/25 Procedure(s): US OB BPP w non-stress Accession Number(s): [id number] cc: Britney Smith; TAISHA PENA [place] [phone] Patient Name: HESHAM AVALOS MRN: [facility]:[id number] date: 2000 Sex: F Assigned Patient Location: [facility] Current Patient Location: Accession/Order Number: [id number] Exam Date: 01/18/2025 10:14 Report Date: 01/18/2025 12:13 At the request of: BRITNEY SMITH Procedure: US OB BPP w non-stress Biophysical profile. Reason for exam: Excessive growth COMPARISON: 12/14/2024 TECHNIQUE: Transabdominal imaging of the gravid uterus was obtained. FINDINGS: The machine spring former reports a BPP of 8 out of 8. ZEB is normal at 17.2 cm. heart rate 158 bpm. US/US OB BPP w non-stress IMPRESSION: BPP 8 out of 8. Impression dictated by: Wayne Murray Jr., Tianna 01/18/2025 12:13 PM Dictation Location: [place] [address] Electronically authenticated by: [id number] Y Date: 01/18/2025 12:13 Dictated By: Wayne Murray M.D. Signed By: 01/18/25 1216 DD/ 1213 TD/TT: Transfer Driver: [facility] Radiology, Radiologist, MD - 01/18/2025 [place] [address] Ultrasound Report Signed Patient: HESHAM AVALOS MR#: [id number] : 2000 Acct:[id number] Age/Sex: 24 / F ADM Date: 01/18/25 Loc: US Attending Dr: Britney Smith Ordering Physician: Britney Smith Date of Service: 01/18/25 Procedure(s): US OB BPP w non-stress Accession Number(s): [id number] cc: Lakshmi Smith JENNIFER [place] [address] Patient Name: HESHAM AVALOS MRN: [facility]:[id number] date: 2000 Sex: F Assigned Patient Location: [facility] Current Patient Location: Accession/Order Number: [id number] Exam Date: 01/18/2025 10:14 Report Date: 01/18/2025 12:13 At the request of: BRITNEY SMITH Procedure: US OB BPP w non-stress Biophysical profile. Reason for exam: Excessive growth COMPARISON: 12/14/2024 TECHNIQUE: Transabdominal imaging of the gravid uterus was obtained. FINDINGS: The machine spring former reports a BPP of 8 out of 8. ZEB is normal at 17.2 cm. heart rate 158 bpm. US/US OB BPP w non-stress IMPRESSION: BPP 8 out of 8. Impression dictated by: Wayne Murray Jr., D.O. 01/18/2025 12:13 PM Dictation Location: [facility] Electronically authenticated by: [id number] Y Date: 01/18/2025 12:13 Dictated By: Wayne Murray M.D. Signed By: 01/18/25 1216 DD/ 1213 TD/TT: Transfer Driver[facility] Radiology Study observation (narrative) [facility] Deep Driver US OB BPP W NON-STRESS Ordered By: Radiologist Radiology on 01-18-2025 [employer] Work Phone: US OB FOLLOW UP [...] UA Negative Negative - 4(70) +++ mg/dL [facility] Blood, UA Negative Negative - 50 Eulogio/mcL [facility] Healthcare Clarity, UA Clear [facility] re Color, UA Yellow [facility] Glucose, UA Negative Negative - 1999(110) ++++ mg/dL [facility] Interpretation and review of laboratory results Abnormal [facility] Ketones, UA Negative Negative - 160(16) ++++ mg/dL [facility] Leukocytes, UA Negative Negative - 500+++ Rufina/mcL [facility] Nitrite, UA Negative Negative - Positive [facility] pH, UA 6 5 - 9 [facility] Protein, UA 1+ Negative - 2000(20) ++++ mg/dL [facility] Spec Grav, UA 1.02 1 - 1.03 [facility] Urobilinogen, UA 1.0 0.2 - 12 mg/dL [facility] Urinalysis macro (dipstick) panel (U)on 01-06-2025 Bilirubin, UA Positive Negative - 4(70) +++ mg/dL [facility] Comment on above: 1+ Blood, UA Negative Negative - 50 Eulogio/mcL [facility] Healthcare Clarity, UA Clear [facility] re Color, UA Yellow [facility] Glucose, UA Negative Negative - 1999(110) ++++ mg/dL [facility] Interpretation and review of laboratory results Abnormal [facility] Ketones, UA Positive Negative - 160(16) ++++ mg/dL [facility] Comment on above: Trace Leukocytes, UA Positive Negative - 500+++ Rufina/mcL [facility] Comment on above: 1+ Nitrite, UA Negative Negative - Positive [facility] pH, UA 6 5 - 9 [facility] Protein, UA Positive Negative - 1999(20) ++++ mg/dL [facility] Comment on above: 1+ Spec Grav, UA 1.025 1 - 1.03 [facility] Urobilinogen, UA 0.2 0.2 - 12 mg/dL [facility] Urinalysis macro (dipstick) panel (U)on 12-24-2024 Bilirubin, UA Negative Negative - 4(70) +++ mg/dL [facility] Blood, UA Negative Negative - 50 Eulogio/mcL [facility] Clarity, UA Clear [facility] re Color, UA Yellow [facility] Glucose, UA Negative Negative - 1999(110) ++++ mg/dL [facility] Interpretation and review of laboratory results Abnormal [facility] Ketones, UA Negative Negative - 160(16) ++++ mg/dL [facility] Leukocytes, UA Negative Negative - 500+++ Rufina/mcL [facility] Nitrite, UA Negative Negative - Positive [facility] pH, UA 6.5 5 - 9 [facility] Protein, UA 1+ Negative - 1999(20) ++++ mg/dL [facility] Spec Grav, UA 1.015 1 - 1.03 [facility] Urobilinogen, UA 1.0 0.2 - 12 mg/dL [facility] OB GROWTHon 12-14-2024 [place] [address] Ultrasound Report Signed Patient: HESHAM AVALOS MR#: [id number] : 2000 Acct:[id number] Age/Sex: 24 / F ADM Date: 12/14/24 Loc: US Attending Dr: Don Hidalgo D.O. Ordering Physician: Don Hidalgo D.O. Date of Service: 12/14/24 Procedure(s): US OB growth Accession Number(s): [id number] cc: Don Hidalgo D.O.; TAISHA PENA [place] [phone] Patient Name: HESHAM AVALOS MRN: [facility]:[id number] date: 2000 Sex: F Assigned Patient Location: US Current Patient Location: US Accession/Order Number: [id number] Exam Date: 12/14/2024 09:50 Report Date: 12/14/2024 [...] Atkinson M.D. 12/14/2024 11:17 AM Dictation Location: [place] [address] Electronically authenticated by: [id number] Y Date: 12/14/2024 11:17 Dictated By: Wilfrido Atkinson M.D. Signed By: 12/14/24 1119 DD/ 1117 TD/TT: Transfer Driver: [facility] Radiology, Radiologist, MD - 12/14/2024 [place] [address] Ultrasound Report Signed Patient: HESHAM AVALOS MR#: [id number] : 2000 Acct:[id number] Age/Sex: 24 / F ADM Date: 12/14/24 Loc: US Attending Dr: Don Hidalgo D.O. Ordering Physician: Don Hidalgo D.O. Date of Service: 12/14/24 Procedure(s): US OB growth Accession Number(s): [id number] cc: Don Hidalgo D.O.; TAISHA PENA [place] [address] Patient Name: HESHAM AVALOS MRN: [id number] date: 2000 Sex: F Assigned Patient Location: US Current Patient Location: US Accession/Order Number: [id number] Exam Date: 12/14/2024 09:50 Report Date: 12/14/2024 [...] Atkinson M.D. 12/14/2024 11:17 AM Dictation Location: [place] [address] Electronically authenticated by: [id number] Y Date: 12/14/2024 11:17 Dictated By: Wilfrido Atkinson M.D. Signed By: 12/14/24 1119 DD/ 1117 TD/TT: Transfer Driver: [facility] Deep Driver Radiology Study observation (narrative) [facility] US OB GROWTHOrdered By: Nini ologdoyel Radiology on 12-14-2024 [facility] [employer] Work Phone: Urinalysis macro (dipstick) panel (U)on 12-12-2024 Bilirubin, UA Negative Negative - 4(70) +++ mg/dL [facility] Blood, UA Negative Negative - 50 Eulogio/mcL [facility] Healthcare Clarity, UA Clear [facility] Color, UA Hattie [facility] Glucose, UA Negative Negative - 1999(110) ++++ mg/dL [facility] Interpretation and review of laboratory results Abnormal [facility] Ketones, UA Negative Negative - 160(16) ++++ mg/dL [facility] Leukocytes, UA Positive Negative - 500+++ Rufina/mcL [facility] Comment on above: Trace Nitrite, UA Negative Negative - Positive [facility] pH, UA 6 5 - 9 [facility] Protein, UA Positive Negative - 1999(20) ++++ mg/dL [facility] Comment on above: 1+ Spec Grav, UA 1.02 1 - 1.03 [facility] Urobilinogen, UA 0.2 0.2 - 12 mg/dL [facility] Urinalysis macro (dipstick) panel (U)on 11-28-2024 Bilirubin, UA 1+ Negative - 4(70) +++ mg/dL [facility] Blood, UA Negative Negative - 50 Eulogio/mcL [facility] Clarity, UA Clear [facility] Color, UA Yellow [facility] Glucose, UA Negative Negative - 1999(110) ++++ mg/dL [facility] Interpretation and review of laboratory results Abnormal [facility] Ketones, UA Negative Negative - 160(16) ++++ mg/dL [facility] Leukocytes, UA 1+ Negative - 500+++ Rufina/mcL [facility] Nitrite, UA Negative Negative - Positive [facility] pH, UA 6 5 - 9 [facility] Protein, UA 1+ Negative - 1999(20) ++++ mg/dL [facility] Spec Grav, UA 1.015 1 - 1.03 [facility] Urobilinogen, UA 1.0 0.2 - 12 mg/dL [facility] ALL CBC WITH AUTO DIFFon BASOPHILS ABSOLUTE AUTO 0 [facility] Basophils/100 WBC (Bld) 0.2 % 0.2 - 2.0 % [facility] Eosinophils/100 WBC (Bld) 0.2 % Low 0.9 - 7.0 % [facility] Erythrocyte distribution width (RBC) [Ratio] 13.7 % 11.0 - 15.0 % [facility] Hematocrit (Bld) [Volume fraction] 32.3 % Low 36.0 - 48.0 % [facility] Hemoglobin (Bld) [Mass/Vol] 10.6 g/dL Low 12.0 - 16.0 g/dL [facility] IMMATURE GRANULOCYTES ABS AUTO 0.04 High [facility] Immature granulocytes/100 WBC (Bld) 0.4 % 0.0 - 0.5 % [facility] Interpretation and review of laboratory results Abnormal [facility] LYMPHOCYTES ABSOLUTE AUTO 1.5 [facility] Lymphocytes/100 WBC (Bld) 16.2 % Low 20.5 - 60.0 % [facility] MCH (RBC) [Entitic mass] 30.9 pg 26.7 - 34.0 pg [facility] MCHC (RBC) [Mass/Vol] 32.8 g/dL 29.9 - 35.2 g/dL [facility] MCV (RBC) [Entitic vol] 94.2 fL 81.0 - 99.0 fL [facility] MONOCYTES ABSOLUTE AUTO 0.5 [facility] Monocytes/100 WBC (Bld) 5.8 % 1.7 - 12.0 % [facility] NEUTROPHILS ABSOLUTE AUTO 6.9 High [facility] Neutrophils/100 WBC (Bld) 77.2 % High 43.0 - 75.0 % [facility] Platelet mean volume (Bld) [Entitic vol] 10.1 fL 9.5 - 13.5 fL [facility] are TB EO # 0 [facility] TB PLT 183 [facility] RBC 3.43 Low [facility] TB WBC 9 [facility] Urinalysis macro (dipstick) panel (U)on 11-14-2024 Bilirubin, UA Negative Negative - 4(70) +++ mg/dL [facility] Blood, UA Negative Negative - 50 Eulogio/mcL [facility] Clarity, UA Clear [facility] re Color, UA Yellow [facility] Glucose, UA Negative Negative - 2000(110) ++++ mg/dL [facility] Interpretation and review of laboratory results Abnormal [facility] Ketones, UA Negative Negative - 160(16) ++++ mg/dL [facility] Leukocytes, UA Positive Negative - 500+++ Rufina/mcL [facility] Comment on above: Small Nitrite, UA Negative Negative - Positive [facility] pH, UA 6.5 5 - 9 [facility] Protein, UA Positive Negative - 1999(20) ++++ mg/dL [facility] Comment on above: Small Spec Grav, UA 1.015 1 - 1.03 [facility] Urobilinogen, UA 0.2 0.2 - 12 mg/dL [facility] Urinalysis macro (dipstick) panel (U)on 10-17-2024 Bilirubin, UA Negative Negative - 4(70) +++ mg/dL [facility] Blood, UA Negative Negative - 50 Eulogio/mcL [facility] Clarity, UA Clear [facility] re Color, UA Yellow [facility] Glucose, UA Negative Negative - 1999(110) ++++ mg/dL [facility] Interpretation and review of laboratory results Normal [facility] Ketones, UA Negative Negative - 160(16) ++++ mg/dL [facility] Leukocytes, UA Negative Negative - 500+++ Rufina/mcL [facility] Nitrite, UA Negative Negative - Positive [facility] pH, UA 7 5 - 9 [facility] Protein, UA Negative Negative - 1999(20) ++++ mg/dL [facility] Spec Grav, UA 1.02 1 - 1.03 [facility] Urobilinogen, UA 0.2 0.2 - 12 mg/dL [facility] Amb[facility] Visit Summaryon 0 10-07-2024 Ambulatory Visit Summary Ambulatory Visit Summary HESHAM AVALOS Tyshawn :2000 Visit Date:10/07/2024 Ambulatory Visit Instructions Your [...] Urology [address], [place] [address] [phone] Medications What How Much When Instructions Unchanged [...] care provider who specializes in women's health (distance education coordinator). How is this treated? Treatment for this condition depends on the cause of the condition and your symptoms. Treatment may include: ??? Lubricants, ointments, and creams. ??? Physical therapy. ??? Massage therapy. ??? Hormonal therapy. ??? Medicines to: ? Prevent or fight infection. ? Relieve pain. ? Help numb the area. ? Treat de (more content not included)... Normal [facility] Urology Office/Clinic Noteon 10-07-2024 Urology Office/Clinic Note [...] needed [facility] [address], [place] [phone] Additional Instructions: Patient Education Dyspareunia, Female I, [...] Seizure: Sister. Immunizations Vaccine Date Status SARSCoV2 mRNA(gthtvocex-xdhe-g ucros) vac 06/03/2021 Recorded SARS-CoV-2 (COVID-19) mRNA BNT-162b2 vax 05/13/2021 Recorded influenza virus vaccine, inactivated 02/01/2021 Recorded hepatitis B pediatric vaccine 10/29/2019 Recorded hepatitis B adult vaccine 05/14/2019 Recorded measles/mumps/rubella /varicella vaccine 04/11/2019 Recorded hepatitis B pediatric vaccine 04/11/2019 Recorded meningococcal conjugate vaccine 11/09/2017 Recorded poliovirus vaccine, inactivated 12/08/2004 Recorded measles/mumps/rubella virus vaccine 12/08/2004 Recorded diphtheria/pertussis, acel/tetanus ped (more content not included)... Normal [facility] Comment on above: Result Comment: Elec tronically Signed By: TINO MACK, Darin Cummins\.br\Date and Time Signed: 10/07/24 08:55 EDT\.br\Electronically Co-Signed By: Chichi Bautista\.br\Date and Time Co-Signed: 10/07/24 08:53 EDT GLUCOSE 1 HOURon 09-18-2024 Glucose [Mass/Vol] 104 mg/dL NINF - 13 0 mg/dL [facility] Urinalysis macro (dipstick) panel (U)on 09-17-2024 Bilirubin, UA Negative Negative - 4(70) +++ mg/dL [facility] Blood, UA Negative Negative - 50 Eulogio/mcL [facility] Healthcare Clarity, UA Clear [facility] re Color, UA Yellow [facility] Glucose, UA Negative Negative - 1999(110) ++++ mg/dL [facility] Interpretation and review of laboratory results Abnormal [facility] Ketones, UA Positive Negative - 160(16) ++++ mg/dL [facility] Comment on above: 40mg/dL Leukocytes, UA Negative Negative - 500+++ Rufina/mcL [facility] Nitrite, UA Negative Negative - Positive [facility] pH, UA 6 5 - 9 [facility] Protein, UA Negative Negative - 1999(20) ++++ mg/dL [facility] Spec Grav, UA 1.015 1 - 1.03 [facility] Urobilinogen, UA 0.2 0.2 - 12 mg/dL [facility] Urinalysis macro (dipstick) panel (U)on 08-20-2024 Bilirubin, UA Positive Negative - 4(70) +++ mg/dL [facility] Comment on above: small Blood, UA Negative Negative - 50 Eulogio/mcL [facility] Healthcare Clarity, UA Clear [facility] Color, UA Yellow [facility] Healthcar e Glucose, UA Negative Negative - 1999(110) ++++ mg/dL [facility] Interpretation and review of laboratory results Abnormal [facility] Ketones, UA Positive Negative - 160(16) ++++ mg/dL [facility] Comment on above: 15mg/dL Leukocytes, UA Positive Negative - 500+++ Rufina/mcL [facility] Comment on above: small Nitrite, UA Negative Negative - Positive [facility] pH, UA 7.5 5 - 9 [facility] Healthcar e Protein, UA Positive Negative - 2000(20) ++++ mg/dL [facility] Comment on above: 100mg/dL Spec Grav, UA 1.015 1 - 1.03 [facility] Urobilinogen, UA 1.0 0.2 - 12 mg/dL [facility] Healthcar e Ambulatory Visit Summaryon 0 [...] Follow Up with TINO MACK, Darin Cummins, URTeresa When: Comments: schedule cystoscopy Where: [facility] [address] , [place] [address] [phone] Medications What How Much When Instructions Unchanged [...] including vitamins, herbs, eye drops, creams, and dkci-kka-vockswq medicines. ??? Any problems you or family [...] tells you to take them. ??? Taking hswc-epa-sjptjwh medicines, vitamins, herbs, and supplements. Tests You [...] (local ane (more content not included)... Normal [facility] Urology Office/Clinic Noteon 08-05-2024 Urology [...] RICHARD MD, URL [facility] [address] , [place] [address] [phone] Additional Instructions: schedule cystoscopy Patient Education Cystoscopy [...] failure: Grandparent. Hypertension: Grandparent. Seizure: Sister. Normal [facility] Comment on above: Result Comment: [...] 0 [facility] MYCOPLASMA GENITALIUM Not detected [facility] NEISSERIA GONORRHOEAE 0 [facility] NEISSERIA GONORRHOEAE Not detected [facility] TRICHOMONAS VAGINALIS 0 [facility] TRICHOMONAS VAGINALIS Not detected [facility]inalysis macro (dipstick) panel (U)on 07-23-2024 Bilirubin, UA Negative Negative - 4(70) +++ mg/dL [facility] Blood, UA Negative Negative - 50 Eulogio/mcL [facility] Clarity, UA Clear [facility] re Color, UA Yellow [facility] Glucose, UA Negative Negative - 1999(110) ++++ mg/dL [facility] Interpretation and review of laboratory results Abnormal [facility] Ketones, UA Positive Negative - 160(16) ++++ mg/dL [facility] Comment on above: trace Leukocytes, UA Negative Negative - 500+++ Rufina/mcL [facility] Nitrite, UA Negative Negative - Positive [facility] pH, UA 6.5 5 - 9 [facility] Protein, UA Trace Negative - 1999(20) ++++ mg/dL [facility] Spec Grav, UA 1.03 1 - 1.03 [facility] Urobilinogen, UA 0.2 0.2 - 12 mg/dL [facility] Health[facility] Free Cell DNAOrdered B y: Pao Fu on 07-16-2024 [facility] BOX TESTon 07-08-2024 BOX TEST SENT OUT [facility] althcare BOX1 [facility] e BOX2 07/08/24 [facility] [place] [facility] Drug Screen, Urineon 025 Amphetamine/Methamph etamine Negative [facility] Barbiturates Negative [facility] Benzodiazepines Negative [facility] Cocaine Metabolite Negative [facility] Methadone Negative [facility] Opiates Negative [facility] Oxycodone Negative [facility] Phencyclidine Negative [facility] Thc Marijuana, Urine Negative [facility] HIV 1&2 AB/AG Screen (P24 AG )on 07-08-2024 HIV 1&2 AB/AG Non-Reactive [facility] Hepatitis B surface antigeno n 07-08-2024 Hepatitis B Surface Antigen Negative [facility] Hepatitis C(HCV) Ab w/ Refle x to PCRon 07-08-2024 HCV Ab Ql (S) Non-Reactive [facility] No Panel Informationon 07-08 [facility] Rubella IGG immune statuson 07-08-2024 Rubella immune IgG IMMUNE [facility] Syphilis Total(Unknown Syphi lis Status)on 07-08-2024 Syphilis Non-Reactive [facility] System Type and screenon 07-08-2024 Abo/Rh(D) Positive [facility] US OB TRANSVAGINALon 025 US [...] II, MD, PHD at 05-Jul-2024 08:37:00 PM [facility] Normal Not Available Comment on above: Order Comment: US OB TRANSVAGINAL No LMP recorded. Cytology Cervical or vaginal smear or scraping studyon 11-21-2023 [facility] PAP ACOG PANEL 2: 21 to 29on 03-04-2022 . . [facility] Comment on above: Performed By: #### [id number] #### [facility] [address] [address] [address] Anthony Newton Age Gdln ACOG Testing 21-29 [facility] Comment on above: Performed By: #### [id number] #### [facility] [address] [place] [address] Dr. Anthony Newton DIAGNOSIS: Comment [facility] Comment on above: Result Comment: NEGA TIVE FOR INTRAEPITHELIAL LESION OR MALIGNANCY. THIS SPECIMEN WAS RESCREENED PART OF OUR PLATE TAKE OUT WORKER PROGRAM. Performed By: #### [id number] #### [facility] [address] [place] [address] Dr. Anthony Newton Methodology: Comment [facility] Comment on above: Result Comment: This liquid based ThinPrep(R) pap test was screened with the use of an image guided system. Performed By: #### [id number] #### [facility] [address] [place] [address] Dr. Anthony Newton Note: Comment [facility] Comment on above: Result Comment: The Pap smear is a screening test designed to aid in the detection of premalignant and malignant conditions of the uterine cervix. It is not a diagnostic procedure and should not be used as the sole means of detecting cervical cancer. Both false-positive and false-negative reports do occur. . Performed By: #### [id number] #### [facility] [address] [place] [address] Dr. Anthony Newton Performed by: Comment Normal [facility] Comment on above: Result Comment: Lana Connell Planer Off Bearer Performed By: #### [id number] #### [facility] [address] [place] [address] Dr. Anthony Newton QC reviewed by: Comment [facility] Comment on above: Result Comment: Shae Maria, Planer Off Bearer (ASCP) Performed By: #### [id number] #### [facility] [address] [place] [address] Dr. Anthony Newton Reflex Criteria: Comment [facility] Comment on above: Result Comment: The HPV DNA reflex criteria were not met with this specimen result therefore, no HPV testing was performed. . Performed By: #### [id number] #### [facility] [address] [id number] Anthony Newton Specimen adequacy: Comment Normal [facility] Comment on above: Result Comment: Sati sfactory for evaluation. Endocervical and/or squamous metaplastic cells (endocervical component) are present. Performed By: #### [id number] #### [facility] [address] [place], [place] [address] Dr. Anthony Newton Lab - Toxicology Resultson 0 10-05-2018 Lab - Toxicology Results [id number]#1. 00OTGTIFF [facility] Outside Recordson 10-04-2018 Outside Records [id number]#1. 00OTGTIFF [facility] Triage Industrialon 10-05-19 Drug Screen Complete Collected Normal [facility] Comment on above: Performed By: #### 1 [id number] #### [facility] (DEFAULT) [address] [place] [address] ED Clinical Summaryon 2018 ED Clinical Summary [facility] ? Urgent Care [address] [place] [id number] Clinical Summary PERSON INFORMATION Name: HESHAM NEELY Age: 18 Years Sex: FEMALE : 00 MRN: Acct#: Visit Reason: Medical screening exam; PHYSICAL PRE EMPLOYMENT/ RIVERVIEW Arrival: 10/03/18 16:20:33 Discharge: 10/03/18 16:50:00 LOS: 000 00:30 Check In: 10/03/18 16:20:33 Checkout: 10/03/18 16:50:00 Address: [facility] [place] [address] PCP: PROVIDER INFORMATION Provider Role Assigned Unassigned [...] Instructions: Follow-Up: DIAGNOSIS: Patient Understands: Comment: Normal [facility] ED Patient Summaryon 019 ED Patient Summary [facility] ? Urgent Care [address] [place] [address] PATIENT DISCHARGE INSTRUCTIONS Patient Information Name: HESHAM NEELY Age: 18 Years Date of : [birth year] [facility]: [id number] Reason For Visit: Medical screening exam; PHYSICAL PRE EMPLOYMENT/ RIVERVIEW Arrival Time: 10/03/18 16:20:33 Primary Care Physician: Attending Physician: Paulino Padilla Comment: Patient Education Medication Information: The exam and treatment you received today in the [facility] Emergency Department were for an urgent problem and are not intended as complete care. It is important for you to follow up with a doctor, nurse practitioner, or physician?s assurance assistant for ongoing care. If your symptoms [...] so we can reach you if necessary. [facility] Emergency Department has provided you with a complete list of medications post discharge. Please inform your research and development tester/provider of your visit and for further instruction on these medications. Any specific questions regarding your chronic medications and dosages should be discussed with your primary care physician(s) and/or pharmacist. Visit Information Visit Diagnosis: Diagnoses This Visit Medical screening exam ([id number]) If you received any narcotics, sedation, or [...] sign any legal documents Reason for Visit: [facility] physical Allergies: Substance Reaction Symptoms Type Comments [...] for Disease Control and Prevention December 2013 [facility] Vital Signs Date Time Vital Sign Value Performing Clinician Sole rodriguez 01-23-2025 10: Body mass index (BMI) [Ratio] 39.82 kg/m2 Britney Smith NP Work Phone: [facility] 01-23-2025 10:22040 Body weight 105.23 kg Britney Smith NP Work Phone: [facility] 01-23-2025 10:22-0400 Diastolic blood pressure 72 mm[Hg] Britney Luis VIDEO PHOTOGRAPHER Work Phone: [facility] 01-23-2025 10:22-0400 Systolic blood pressure 124 mm[Hg] Britney Luis VIDEO PHOTOGRAPHER Work Phone: [facility] 01-14-2025 09:32-0400 Body mass index (BMI) [Ratio] 39.48 kg/m2 Britney Luis VIDEO PHOTOGRAPHER Work Phone: [facility] 01-14-2025 09:32-0400 Body weight 104.33 kg Britney Luis VIDEO PHOTOGRAPHER Work Phone: [facility] 01-14-2025 09:32-0400 Diastolic blood pressure 68 mm[Hg] Britney Luis VIDEO PHOTOGRAPHER Work Phone: [facility] 01-14-2025 09:32-0400 Systolic blood pressure 122 mm[Hg] Britney Luis VIDEO PHOTOGRAPHER Work Phone: [facility] 01-06-2025 10:44-0400 Body mass index (BMI) [Ratio] 39.16 kg/m2 Kathie Gainesville PA Work Phone: [facility] 01-06-2025 10:44-0400 Body weight 103.48 kg Kathie Gainesville PA Work Phone: [facility] 01-06-2025 10:44-0400 Diastolic blood pressure 66 mm[Hg] Kathie Gainesville PA Work Phone: [facility] 01-06-2025 10:44-0400 Systolic blood pressure 122 mm[Hg] Kathie Jesus PA Work Phone: [facility] 12-24-2024 10:07-0400 Body mass index (BMI) [Ratio] 39.31 kg/m2 Don Rocky DO Work Phone: [facility] 12-24-2024 10:07-0400 Body weight 103.87 kg Don Rocky DO Work Phone: [facility] 12-24-2024 10:07-0400 Diastolic blood pressure 70 mm[Hg] Don Rocky DO Work Phone: [facility] 12-24-2024 10:07-0400 Systolic blood pressure 124 mm[Hg] Don Rocky DO Work Phone: [facility] 12-12-2024 10:28-0400 Body mass index (BMI) [Ratio] 38.96 kg/m2 Kathie Jesus PA Work Phone: [facility] 12-12-2024 10:28-0400 Body weight 102.97 kg Kathie Jesus PA Work Phone: [facility] 12-12-2024 10:28-0400 Diastolic blood pressure 70 mm[Hg] Kathie Jesus PA Work Phone: [facility] 12-12-2024 10:28-0400 Systolic blood pressure 130 mm[Hg] Kathie Jesus PA Work Phone: [facility] 11-28-2024 08:48-0400 Body mass index (BMI) [Ratio] 38.62 kg/m2 Don Rocky DO Work Phone: [facility] 11-28-2024 08:48-0400 Body weight 102.06 kg Don Rocky DO Work Phone: [facility] 11-28-2024 08:48-0400 Diastolic blood pressure 74 mm[Hg] Don Rocky DO Work Phone: [facility] 11-28-2024 08:48-0400 Systolic blood pressure 118 mm[Hg] Don Rocky DO Work Phone: [facility] 11-14-2024 11:22-0400 Body mass index (BMI) [Ratio] 38.88 kg/m2 Kathie Jesus PA Work Phone: [facility] 11-14-2024 11:22-0400 Body weight 102.74 kg Kathie Jesus PA Work Phone: [facility] 11-14-2024 11:22-0400 Diastolic blood pressure 64 mm[Hg] Kathie Jesus PA Work Phone: [facility] 11-14-2024 11:22-0400 Systolic blood pressure 122 mm[Hg] Kathie COCHRAN Work Phone: [facility] 10-17-2024 08:10-0400 Body mass index (BMI) [Ratio] 38.66 kg/m2 Don Rocky DO Work Phone: [facility] 10-17-2024 08:10-0400 Body weight 102.17 kg Don Rocky DO Work Phone: [facility] 10-17-2024 08:10-0400 Diastolic blood pressure 58 mm[Hg] Don Rocky DO Work Phone: [facility] 10-17-2024 08:10-0400 Systolic blood pressure 114 mm[Hg] Don Rocky DO Work Phone: [facility] 09-23-2024 11:59-0400 Body height 162.6 cm Cintia Allen MD Work Phone: [facility] 09-23-2024 11:59-0400 Body mass index (BMI) [Ratio] 38.04 kg/m2 Cintia Allen MD Work Phone: [facility] 09-23-2024 11:59-0400 Body weight 100.52 kg Cintia Allen MD Work Phone: [facility] 09-23-2024 11:59-0400 Diastolic blood pressure 75 mm[Hg] Cintia Allen MD Work Phone: [facility] 09-23-2024 11:59-0400 Heart rate 90 /min Cintia Allen MD Work Phone: [facility] 09-23-2024 11:59-0400 Systolic blood pressure 119 mm[Hg] Cintia Allen MD Work Phone: [facility] 09-17-2024 13:49-0400 Body mass index (BMI) [Ratio] 38.28 kg/m2 Kathie COCHRAN Work Phone: [facility] 09-17-2024 13:49-0400 Body weight 101.15 kg Kathie COCHRAN Work Phone: [facility] 09-17-2024 13:49-0400 Diastolic blood pressure 78 mm[Hg] Kathie COCHRAN Work Phone: [facility] 09-17-2024 13:49-0400 Systolic blood pressure 124 mm[Hg] Kathie COCHRAN Work Phone: [facility] 08-20-2024 10:54-0400 Body mass index (BMI) [Ratio] 37.59 kg/m2 Don Rocky DO Work Phone: [facility] 08-20-2024 10:54-0400 Body weight 99.34 kg Don Rocky DO Work Phone: [facility] 08-20-2024 10:54-0400 Diastolic blood pressure 84 mm[Hg] Don Rocky DO Work Phone: [facility] 08-20-2024 10:54-0400 Systolic blood pressure 126 mm[Hg] Don Rocky DO Work Phone: [facility] 07-23-2024 12:54-0400 Body mass index (BMI) [Ratio] 38.28 kg/m2 Don Rocky DO Work Phone: [facility] 07-23-2024 12:54-0400 Body weight 101.15 kg Don Rocky DO Work Phone: [facility] 07-23-2024 12:54-0400 Diastolic blood pressure 80 mm[Hg] Don Rocky DO Work Phone: [facility] 07-23-2024 12:54-0400 Systolic blood pressure 120 mm[Hg] Don Rocky DO Work Phone: [facility] 05-24-2023 14:05-0500 Body height 162.6 cm Stephanie Sotelo NP Work Phone: [facility] 05-24-2023 14:05-0500 Body mass index (BMI) [Ratio] 34.57 kg/m2 Stephanie Cortésk VIDEO PHOTOGRAPHER Work Phone: [facility] 05-24-2023 14:05-0500 Body weight 91.35 kg Stephanie Cortésk VIDEO PHOTOGRAPHER Work Phone: [facility] 05-24-2023 14:05-0500 Diastolic blood pressure 74 mm[Hg] Stephanie Whitlocktrick VIDEO PHOTOGRAPHER Work Phone: [facility] 05-24-2023 14:05-0500 Heart rate 63 /min Stephanie Cortésk VIDEO PHOTOGRAPHER Work Phone: [facility] 05-24-2023 14:05-0500 Respiratory rate 20 /min Stephanie Cortésk VIDEO PHOTOGRAPHER Work Phone: [facility] 05-24-2023 14:05-0500 SaO2% (BldA) [Mass fraction] 96 % Stephanie Cortésk VIDEO PHOTOGRAPHER Work Phone: [facility] 05-24-2023 14:05-0500 Systolic blood pressure 138 mm[Hg] Stephanie Cortésk VIDEO PHOTOGRAPHER Work Phone: [facility] 04-12-2023 15:05-0500 Body height 162.6 cm Daniella Reina MD Work Phone: [facility] 04-12-2023 15:05-0500 Body mass index (BMI) [Ratio] 37.93 kg/m2 Daniella Reina MD Work Phone: [facility] 04-12-2023 15:05-0500 Body weight 100.25 kg Daniella Reina MD Work Phone: [facility] 04-12-2023 15:05-0500 Diastolic blood pressure 76 mm[Hg] Daniella Reina MD Work Phone: [facility] 04-12-2023 15:05-0500 Heart rate 96 /min Daniella Reina MD Work Phone: [facility] 04-12-2023 15:05-0500 Systolic blood pressure 115 mm[Hg] Daniella Reina MD Work Phone: [facility] Encounters Encounter Date Encounter Type Care Provider Facility Start: 01-25-2025 End: 01-25-2025 Clinisync Result Encounter Generic External Data Provider [facility] External [facility] Unsolicited Start: 01-25-2025 End: 01-25-2025 Clinisync Result Encounter Generic External Data Provider [facility] External Department Unsolicited Start: 01-23-2025 End: 01-23-2025 Bamboo flowsheet Britney Smith VIDEO PHOTOGRAPHER Work Phone: [facility] Start: 01-23-2025 End: 01-23-2025 Bamboo flowsheet Britney Smith VIDEO PHOTOGRAPHER Work Phone: [facility] Start: 01-23-2025 End: 01-23-2025 flow sheet Britney Smith VIDEO PHOTOGRAPHER Work Phone: [facility] Comment on above: Third trimester preg bria ([facility]); 37 weeks gestation of ([facility]) Start: 01-23-2025 End: 01-23-2025 ambulatory BRITNEY SMITH Not Available Start: 01-18-2025 End: 01-18-2025 Clinisync Result Encounter Britney Smith VIDEO PHOTOGRAPHER Work Phone: [facility] Unsolicited Start: 01-18-2025 End: 01-18-2025 Clinisync Result Encounter Britney Smith VIDEO PHOTOGRAPHER Work Phone: [facility] Unsolicited Start: 01-14-2025 End: 01-19-2025 Clinisync Result Encounter Generic External Data Provider [facility] External Department Unsolicited Start: 01-14-2025 End: 01-19-2025 Clinisync Result Encounter Generic External Data Provider [facility] External Department Unsolicited Start: 01-14-2025 End: 01-14-2025 flow sheet Britney Smith VIDEO PHOTOGRAPHER Work Phone: [facility] Comment on above: Third trimester preg bria ([facility]); 36 weeks gestation of ([facility]); History of placental abnormality; Excessive growth affecting management of , antepartum, single or unspecified fetus ([facility]) Start: 01-14-2025 End: 01-14-2025 ambulatory BRITNEY LUIS Not Available Start: 01-06-2025 End: 01-06-2025 Bamboo flowsheet Kathie COCHRAN Work Phone: [facility] Start: 01-06-2025 End: 01-06-2025 Bamboo flowsheet Kathie COCHRAN Work Phone: [facility] Start: 01-06-2025 End: 01-06-2025 flow sheet Kathie COCHRAN Work Phone: [facility] Comment on above: Third trimester preg bria ([facility]); 35 weeks gestation of ([facility]) Start: 01-06-2025 End: 01-06-2025 ambulatory KATHIE ROMAN Not Available Start: 12-24-2024 End: 12-24-2024 Bamboo flowsheet Don Rocky DO Work Phone: [facility] Start: 12-24-2024 End: 12-24-2024 Bamboo flowsheet Don Rocky DO Work Phone: [facility] Start: 12-24-2024 End: 12-24-2024 flow sheet Don Rocky DO Work Phone: [facility] Comment on above: Third trimester preg bria ([facility]); 33 weeks gestation of ([facility]); History of placental abnormality; Excessive growth affecting management of , antepartum, single or unspecified fetus ([facility]) Start: 12-24-2024 End: 12-24-2024 ambulatory [...] Comment on above: Third trimester preg bria ([facility]); 31 weeks gestation of ([facility]) Start: 12-12-2024 End: 12-12-2024 ambulatory KATHIE ROMAN Not Available Start: 11-28-2024 End: 11-28-2024 Bamboo flowsheet Don Rocky DO Work Phone: [facility] Start: 11-28-2024 End: 11-28-2024 Bamboo flowsheet Don Rocky DO Work Phone: [facility] Start: 11-28-2024 End: 11-28-2024 flow sheet Don Rocky DO Work Phone: [facility] Comment on above: Third trimester preg bria ([facility]); 29 weeks gestation of ([facility]); History of placental abnormality; Excessive growth affecting management of in third trimester, single or unspecified fetus ([facility]) Start: 11-28-2024 End: 11-28-2024 ambulatory DON ROCKY Not Available Start: 11-16-2024 End: 11-16-2024 Clinisync Result Encounter Generic External Data Provider [facility] External Department Unsolicited Start: 11-16-2024 End: 11-16-2024 Clinisync Result Encounter Generic External Data Provider [facility] External Department Unsolicited Start: 11-14-2024 End: 11-14-2024 Bamboo flowsheet Kathie COCHRAN Work Phone: [facility] Start: 11-14-2024 End: 11-14-2024 Bamboo flowsheet Kathie COCHRAN Work Phone: [facility] Start: 11-14-2024 End: 11-14-2024 flow sheet Kathie COCHRAN Work Phone: [facility] Comment on above: Second trimester pre gnancy ([facility]); 27 weeks gestation of ([facility]) Start: 11-14-2024 End: 11-14-2024 ambulatory KATHIE ROMAN Not Available Start: 10-24-2024 End: 10-24-2024 ambulatory [facility] Start: 10-17-2024 End: 10-17-2024 Bamboo flowsheet Don Rocky DO Work Phone: [facility] Start: 10-17-2024 End: 10-17-2024 Bamboo flowsheet Don Rocky DO Work Phone: [facility] Start: 10-17-2024 End: 10-17-2024 flow sheet Don Rocky DO Work Phone: [facility] Comment on above: Second trimester pre gnancy ([facility]); 23 weeks gestation of ([facility]); Diabetes mellitus screening Start: 10-17-2024 End: 10-17-2024 ambulatory DON ROCKY Not Available Start: 10-07-2024 End: 10-07-2024 ambulatory Darin RICHARD Facility:[facility] Start: 10-07-2024 End: 10-07-2024 Patient encounter procedure Darin RICHARD [facility] Start: 09-23-2024 End: 09-23-2024 Office consultation new/estab patient 40 min Cintia Allen MD Work Phone: [facility] Comment on above: Obesity affecting pr egnancy in second trimester, unspecified obesity type (Primary Dx) Start: 09-23-2024 End: 09-23-2024 Orders Only Sherrill Hernandez [facility] Comment on above: Polyhydramnios affec [...] 08-05-2024 End: 08-05-2024 ambulatory Darin RICHARD [facility] Start: 08-02-2024 End: 08-02-2024 Chart abstracting Cintia Allen MD Work Phone: [facility] Start: 07-25-2024 ambulatory Facility:[facility] Start: 07-23-2024 [...] 05-24-2023 Bamboo flowsheet Stephanie A Fit zpatrick VIDEO PHOTOGRAPHER Work Phone: [facility] Start: 05-24-2023 Bamboo flowsheet Stephanie A Fit zpatrick VIDEO PHOTOGRAPHER Work Phone: [facility] Start: 05-24-2023 End: 05-24-2023 Patient encounter status Stephanie Villagran Ashleigh VIDEO PHOTOGRAPHER Work Phone: [facility] Work Phone: Start: 05-24-2023 End: 05-24-2023 Periodic preventive med est patient 18-39 yrs Stephanie Villagran Ashleigh VIDEO PHOTOGRAPHER Work Phone: [facility] Comment on above: Encounter for wellne ss examination (Primary Dx); Anemia, unspecified type Start: 04-12-2023 End: 04-12-2023 Office outpatient visit 25 minutes Daniella Reina MD Work Phone: [facility] Comment on above: 35 weeks gestation o f (Primary Dx); Polyhydramnios affecting Start: 02-24-2022 End: 02-24-[address] DON HIDALGO Facility: Procedures Date Procedure Procedure Detail Performing Clinician Start: 01-25-2025 US OB BPP W NON-STRESS Generic External Data Provider Start: 01-23-2025 Urnls dip stick/tabl et rgnt non-auto w/o micrscp Britney Smith VIDEO PHOTOGRAPHER Work Phone: Start: 01-18-2025 OB BPP W NON-STRESS Britney Luis VIDEO PHOTOGRAPHER Work Phone: Start: 01-14-2025 Urnls dip stick/tabl et rgnt non-auto w/o micrscp Britney Smith VIDEO PHOTOGRAPHER Work Phone: Start: 01-14-2025 STREP GP B [...] of T tube Darin RICHARD Tympanostomy Darin IRCHARD Plan of Treatment Date Care Activity Detail Author Start: 12-19-2030 DTaP,Tdap and Td Vaccines (6 - Tdap) DTaP,Tdap and Td Vaccines (6 - Tdap) [facility] Start: 11-09-2025 Screening for malign ant neoplasm of cervix Pap Smear [facility] Start: 09-23-2025 Adult BMI Screening [facility] Start: 09-23-2025 Tobacco Screening Tobacco Screening [facility] Start: 09-23-2025 End: 09-23-2025 US MFM with or without consult US MFM with or without consult Imaging Routine Polyhydramnios affecting Low-lying placenta Placenta previa in second trimester Velamentous insertion of umbilical cord in second trimester Vasa previa, single or unspecified fetus History of hemorrhage, currently in second trimester Expected: 09/23/2025 (Approximate), Expires: 09/23/2025 Inside Work Phone: Comment on above: Expected: 09/23/2025 (Approximate), Expires: 09/23/2025 Start: 01-29-2025 End: 01-29-2025 Patient encounter procedure 01/29/2025 1:50 PM EDT Routine CONY JAVIER [address] [place] [address] Kathie Roman PA [address] [place], [place] [id number] CONY Spencer OBJEAN MARIE Start: 01-23-2025 End: 01-23-2025 Patient encounter procedure CONY JAVIER Comment on above: Arrived Start: 01-14-2025 End: 01-14-2026 CULTURE, GROUP B STREP WITH SUSCEPTIBLITY CULTURE, GROUP B STREP WITH SUSCEPTIBLITY Lab Routine Third trimester ([facility]) Expected: 01/14/2025 (Approximate), Expires: 01/14/2026 [facility] Work Phone: Comment on above: Expected: 01/14/2025 (Approximate), Expires: 01/14/2026 Start: 01-14-2025 End: 07-14-2025 US biophysical profile w non stress test US biophysical profile w non stress test Imaging Routine Third trimester ([facility]) 36 weeks gestation of ([facility]) History of placental abnormality Excessive growth affecting management of , antepartum, single or unspecified fetus ([facility]) Expected: 01/14/2025 (Approximate), Expires: 07/14/2025 [facility] Comment on above: Expected: 01/14/2025 (Approximate), Expires: 07/14/2025 Start: 01-14-2025 End: 01-14-2025 Patient encounter procedure 01/14/2025 9:20 AM EDT Routine CONY JAVIER [address] [place] [address] Britney Smith, VIDEO PHOTOGRAPHER [address] [place] [phone] CONY JAVIER Start: 01-14-2025 End: 01-14-2025 Professional / ancillary services management 01/14/2025 9:00 AM EDT Ancillary Procedure [facility] [address] [place] [address] [facility] Start: 01-06-2025 End: 01-06-2025 Patient encounter procedure [facility] Comment on above: Arrived Start: 12-24-2024 End: 04-25-2025 US for US OB follow up transabdominal approach Imaging Routine Excessive growth affecting management of , antepartum, single or unspecified fetus ([facility]) Expected: 12/24/2024, Expires: 04/25/2025 [facility] Work Phone: Comment on above: Expected: 12/24/2024 , Expires: 04/25/2025 Start: 12-24-2024 End: 12-24-2024 Patient encounter procedure [facility] Comment on above: Arrived Start: 12-16-2024 Influenza vaccination [facility] Start: 12-12-2024 End: 12-12-2024 Patient encounter procedure 12/12/2024 10:10 AM EDT Routine CONY Spencer OBEFFIEN [address] [place] [address] Kathie Roman PA [address] [place] [address] Arrived [facility] Comment on above: Arrived Start: 11-28-2024 End: 03-30-2025 US for US OB follow up transabdominal approach Imaging Routine Third trimester ([facility]) History of placental abnormality Excessive growth affecting management of in third trimester, single or unspecified fetus ([facility]) Expected: 11/28/2024, Expires: 03/30/2025 [facility] Work Phone: Comment on above: Expected: 11/28/2024 , Expires: 03/30/2025 Start: 11-28-2024 End: 11-28-2024 Patient encounter procedure [facility] Comment on above: Arrived Start: 11-26-2024 End: 11-26-2024 Patient encounter procedure 11/26/2024 3:00 PM EDT Office Visit [facility] [address] [address] Don Hidalgo, DO [address] [place] [address] [facility] Start: 11-14-2024 End: 11-14-2024 Patient encounter procedure [facility] Comment on above: Arrived Start: 10-24-2024 End: 10-24-2024 Patient encounter procedure 10/24/2024 1:00 PM EDT Appointment [facility] [address] [place] [id number] [facility] Start: 10-17-2024 End: 10-17-2025 CBC panel - Blood by Automated count CBC Lab Routine Diabetes mellitus screening Expected: 10/17/2024 (Approximate), Expires: 10/17/2025 [facility] Work Phone: Comment on above: Expected: 10/17/2024 (Approximate), Expires: 10/17/2025 Start: 10-17-2024 End: 10-17-2025 Measurement of glucose 1 hour after glucose challenge for glucose tolerance test Glucose tolerance, 1 hour Lab Routine Diabetes mellitus screening Expected: 10/17/2024 (Approximate), Expires: 10/17/2025 [facility] Comment on above: Expected: 10/17/2024 (Approximate), Expires: 10/17/2025 Start: 10-17-2024 End: 10-17-2024 Patient encounter procedure 10/17/2024 10:10 AM EDT Routine [facility] [address] [facility] [place] [phone] Don Hidalgo, DO [address] [place] [address] [facility] Start: 10-17-2024 End: 10-17-2024 Patient encounter procedure 10/17/2024 8:10 AM EDT Routine [facility] [address] [place] [phone] Don Hidalgo, DO [address] [place] [address] Arrived [facility] Comment on above: Arrived Start: 09-23-2024 End: 09-23-2024 Patient encounter procedure [facility] Start: 09-17-2024 End: 09-17-2024 Patient encounter procedure 09/17/2024 1:30 PM EDT Routine [facility] [address] [place] [phone] Kathie Roman PA [address] [place] [address] [facility] Start: 08-20-2024 End: 10-20-2024 Alpha fetoprotein, maternal Alpha fetoprotein, maternal Lab Routine Second trimester 15 weeks gestation of Expected: 08/20/2024 (Approximate), Expires: 10/20/2024 [facility] Work Phone: Comment on above: Expected: 08/20/2024 (Approximate), Expires: 10/20/2024 Start: 08-20-2024 End: 08-20-2025 Measurement of glucose 1 hour after glucose challenge for glucose tolerance test Glucose tolerance, 1 hour Lab Routine Diabetes mellitus screening Expected: 08/20/2024 (Approximate), Expires: 08/20/2025 [facility] Comment on above: Expected: 08/20/2024 (Approximate), Expires: 08/20/2025 Start: 08-20-2024 End: 08-20-2024 Patient encounter procedure 08/20/2024 10:20 AM EDT Routine [facility] [address] [place] [phone] Don Hidalgo, DO [address] [place] [address] [facility] Start: 08-05-2024 End: 08-05-2024 Patient encounter procedure 08/05/2024 2:10 PM EDT Routine [facility] [address] [facility] [phone] Don Hidalgo DO [address] [address] [facility] Start: 04-12-2024 Adult BMI Screening Adult BMI Screen ing [facility] Start: 04-12-2024 Tobacco Screening Tobacco Screening [facility] Start: 12-17-2023 COVID-19 Vaccine ( season) COVID-19 Vaccine ( season) [facility] Start: 12-17-2023 Influenza vaccination Influenza Vacc ine (#1) [facility] Start: 11-10-2023 Screening for Chlamy annabella trachomatis Chlamydia Screening [facility] Start: 10-15-2023 Influenza vaccination Influenza Vacc ine (#1) [facility] Comment on above: Postponed from 12/16 (Patient Refused) Start: 06-07-2023 End: 06-07-2023 ambulatory 06/07/2023 10:30 AM EST Visit [facility] [address] [place] [phone] Kathie Roman PA [address] [place] [address] [facility] Start: 05-24-2023 End: 05-24-2024 CBC W Auto Differential panel - Blood CBC and differential Lab Routine Encounter for wellness examination Anemia, unspecified type Expected: 05/24/2023 (Approximate), Expires: 05/24/2024 [facility] Comment on above: Expected: 05/24/2023 (Approximate), Expires: 05/24/2024 Start: 05-24-2023 End: 02-07-2025 Comprehensive metabolic 2000 panel - Serum or Plasma Comprehensive metabolic panel Lab Routine Encounter for wellness examination Anemia, unspecified type Expected: 05/24/2023 (Approximate), Expires: 05/24/2024 [facility] Work Phone: Comment on above: Expected: 05/24/2023 (Approximate), Expires: 05/24/2024 Start: 12-16-2022 COVID-19 Vaccine () COVID-19 Vaccine () [facility] Start: 12-16-2022 Influenza vaccination N [facility] Start: 01-31-2022 Depression Screening Depression Scre [facility] Start: 2018 Adult BMI Follow Up Plan Adult BMI Follow Up Plan [facility] Start: 2012 Depression Screening Depression Scre [facility] CHLAMYDIA TRACHOMATI S (GENITO/STI) CHLAMYDIA TRACHOMATIS (GENITO/STI) Lab Routine Vaginal discharge Ordered: 07/23/2024 [facility] Comment on above: Ordered: 07/23/2024 Neisseria gonorrhoea e DNA [Presence] in Unspecified specimen by BOONE with probe detection Neisseria gonorrhea DNA probe, direct Lab Routine Vaginal discharge Ordered: 07/23/2024 [facility] Comment on above: Ordered: 07/23/2024 SURESWAB(R) ADVANCED VAGINITIS PLUS, TMA SURESWAB(R) ADVANCED VAGINITIS PLUS, TMA Pathology and Cytology Routine Vaginal discharge Ordered: 07/23/2024 [facility] Work Phone: Comment on above: Ordered: 07/23/2024 Immunizations Immunization Date Immunization Notes Care Provider Bronwyn alexander 06-03-2021 SARS-CoV-2 mRNA (gjfevshthyn-sufh-aegff se) vaccine Darin RICHARD [facility] 05-13-2021 SARS-CoV-2 (COVID-19 ) mRNA BNT-162b2 vax Darin RICHARD [facility] 02-01-2021 Seasonal, quadrivale nt, recombinant, injectable influenza vaccine, preservative free Stephanie Sotelo NP Work Phone: [facility] 02-01-2021 influenza virus vaccine, unspecified formulation Daniella Reina MD Work Phone: [facility] 12-19-2020 diphtheria, tetanus toxoids and pertussis vaccine Daniella Reina MD Work Phone: [facility] 10-29-2019 hepatitis B vaccine, pediatric or pediatric/adolescent dosage Daniella Reina MD Work Phone: [facility] 05-14-2019 hepatitis B vaccine, adult dosage Daniella Reina MD Work Phone: [facility] 04-11-2019 hepatitis B vaccine, pediatric or pediatric/adolescent dosage Daniella Reina MD Work Phone: [facility] 04-11-2019 measles, mumps, rubella, and varicella virus vaccine Daniella Reina MD Work Phone: [facility] 11-09-2017 meningococcal ACWY vaccine, unspecified formulation Darin RICHARD [facility] 11-09-2017 meningococcal oligosaccharide (groups A, C, Y and W-135) diphtheria toxoid conjugate vaccine (MCV4O) Daniella Reina MD Work Phone: [facility] 12-08-2004 diphtheria, tetanus toxoids and acellular pertussis vaccine Daniella Reina MD Work Phone: [facility] 12-08-2004 measles, mumps and rubella virus vaccine Daniella Reina MD Work Phone: [facility] 12-08-2004 poliovirus vaccine, inactivated Daniella Reina MD Work Phone: [facility] 12-08-2004 poliovirus vaccine, unspecified formulation Darin RICHARD [facility] 09-28-2001 measles, mumps and rubella virus vaccine Daniella Reina MD Work Phone: [facility] 03-23-2001 diphtheria, tetanus toxoids and acellular pertussis vaccine, unspecified formulation Daniella Reina MD Work Phone: [facility] 03-23-2001 DTaP, unspecified formulation Darin RICHARD [facility] 03-23-2001 haemophilus influenz ae type b conjugate and Hepatitis B vaccine Daniella Reina MD Work Phone: [facility] 03-23-2001 poliovirus vaccine, inactivated Daniella Reina MD Work Phone: [facility] 03-23-2001 poliovirus vaccine, unspecified formulation Darin RICHARD [facility] 01-12-2001 diphtheria, tetanus toxoids and acellular pertussis vaccine, unspecified formulation Daniella Reina MD Work Phone: [facility] 01-12-2001 DTaP, unspecified formulation Darin RICHARD [facility] 01-12-2001 haemophilus influenz ae type b vaccine, HbOC conjugate Daniella Reina MD Work Phone: [facility] 01-12-2001 poliovirus vaccine, inactivated Daniella Reina MD Work Phone: [facility] 01-12-2001 poliovirus vaccine, unspecified formulation Darin RICHARD [facility] 2000 diphtheria, tetanus toxoids and acellular pertussis vaccine, unspecified formulation Daniella Reina MD Work Phone: [facility] 2000 DTaP, unspecified formulation Darin RICHARD [facility] 2000 haemophilus influenz ae type b conjugate and Hepatitis B vaccine Daniella Reina MD Work Phone: [facility] 2000 poliovirus vaccine, inactivated Daniella Reina MD Work Phone: [employer] 2000 poliovirus vaccine, unspecified formulation Darin RICHARD [facility] 2000 hepatitis B vaccine, pediatric or pediatric/adolescent dosage Daniella Reina MD Work Phone: [employer] NEGATED: Highlighted row has not occurred!04-11-2019 influenza, injectable, quadrivalent, preservative free Daniella Reina MD Work Phone: [employer] Comment on above: Deferred: Patient de cision Payers Date Payer Category Payer Private Health Insurance [id number] 2022 [facility] er [id number] 2022 [facility] Managed Care - O ANTHEM [id number] 2022 Unknown [id number]. [id number] 2021 Unknown [id number] 2000 Unknown [id number] 2.16.840.1.080485.3.579. 2.593 2000 Unknown [id number] 2.16.840.1.350654.3.579. 2.727 2000 Unknown [id number] 2.16.840.1.883652.3.579. 2.1286 2000 Unknown [id number] 2.16.840.1.210413.3.579. 2.1286 2000 Unknown [id number] 2.16.840.1.907352.3.579. 2.727 2000 Unknown [id number] 2.16.840.1.044339.3.579. 2.727 2000 Unknown [id number] 2.16.840.1.693580.3.579. 2.1286 2000 Unknown [id number] 2.16.840.1.978398.3.579. 2.1259 2000 Unknown [id number] 2.16.840.1.653631.3.579. 2.1259 2000 Unknown [id number] 2.16.840.1.877578.3.579. 2.1259 2000 Unknown [id number] 2.16.840.1.253607.3.579. 2.125 2000 Unknown [id number] 2.16.840.1.332538.3.579. 2.1259 2000 Unknown [id number] 2.16.840.1.856528.3.579. 2.1258 2000 Unknown [id number] 2.16.840.1.964445.3.579. 2.9 2000 Unknown [id number] 2.16.840.1.482075.3.579. 2.9 2000 Unknown [id number] 2.16.840.1.053033.3.579. 2.1258 2000 Unknown [id number] 2.16.840.1.667168.3.579. 2.1258 2000 Unknown [id number] 2.16.840.1.685087.3.579. 2.1258 2000 Unknown [id number] 2.16.840.1.522017.3.579. 2.9 2000 Unknown [id number] 2.16.840.1.366796.3.579. 2.9 2000 Unknown [id number] 2.16.840.1.589216.3.579. 2.1259 1959 Unknown [id number] Social History Date Type Detail Facility Start: 11-08-2022 End: 10-07-2024 Tobacco smoking status [facility] Never smoked tobacco [facility] Start: 11-08-2022 End: 04-12-2023 Tobacco use and exposure Smokeless tobacco non-user [facility] Start: 04-12-2023 End: 04-18-2023 Alcohol intake Lifetime non-drinker (finding) [facility] Start: 05-17-2023 End: 05-24-2023 History of Social function [facility] Start: 05-17-2023 End: 05-24-2023 Humiliation, Afraid, Rape, and Kick questionnaire [HARK] [facility] Within the last year , have you been afraid of your partner or ex-partner? No [facility] Are you now , , , , never or living with a partner? [facility] How often to you hav e a drink containing alcohol? 2-4 times a month [facility] How many standard drinks containing alcohol do you have on a typical day? 3 or 4 [facility] How often do you hav e 6 or more drinks on 1 occasion? Less than monthly [facility] How hard is it for y ou to pay for the very basics like food, housing, medical care, and heating Not hard at all [facility] Do you feel stress - tense, restless, nervous, or anxious, or unable to sleep at night because your mind is troubled all the time - these days [OSQ] Not at all [facility] (I/We) worried wheth er (my/our) food would run out before (I/we) got money to buy more. Never true [facility] Start: 08-15-2022 [facility] Start: 2000 Sex Assigned At Female P [facility] Start: 10-07-2022 Gender identity Identifies as female gender (finding) [facility] Start: 10-07-2022 Sexual orientation Heterosexual (fin ding) [facility] Start: 05-24-2023 End: 01-14-2025 Alcohol intake Ex-drinker (finding) [facility] Are you now , , , , never or living with a partner? Living with partner [facility] How hard is it for y ou to pay for the very basics like food, housing, medical care, and heating Not very hard [facility] Do you feel stress - tense, restless, nervous, or anxious, or unable to sleep at night because your mind is troubled all the time - these days [OSQ] Very much [facility] Start: 01-31-2021 Education 21 [facility] Start: 11-18-2014 Sex Female (finding) [facility] Sexual Orientation [facility] NEGATED: Highlighted rowStart: RANDI History of tobacco use Passive smoker [facility] Medical Equipment Procedure Code Equipment Code Equipment Origin al Text Equipment Identifier Dates Check blood suga r 4-5 times daily, fasting and 1 hour after meals. Use as directed. Dispense per insurance preference. [id number] Start: 04-12-2023 1 strip by miscellaneous route in the morning and 1 strip at noon and 1 strip in the evening and 1 strip before bedtime. Check blood sugar 4-5 times daily, fasting and 1 hour after meals. Use as directed. Dispense per insurance preference.. [id number] Start: 04-12-2023 Clinical Notes 04-12-2023 to 01-23-2025 [...] Gluconate (IRON 27 PO) 1 each, Daily Llnlcqjd-Bga-Mp-FA (PRE- PO) 1 each, Daily ALLERGIES No Known Allergies PROBLEMS Active Ambulatory Problems Diagnosis Date Noted History of placental abnormality 12/24/2024 Resolved Ambulatory Problems Diagnosis Date Noted Obesity affecting in second trimester ([facility]) 01/27/2023 Velamentous insertion of umbilical cord in second trimester ([facility]) 01/27/2023 Past Medical History: Diagnosis Date 6 weeks follow-up ([facility]) HISTORY PAST MEDICAL HISTORY SOCIAL HISTORY Past Medical History: Diagnosis Date 6 weeks follow-up ([facility]) Social History Tobacco Use Smoking [...] nursing note reviewed. Exam conducted with a sugar refinery supervisor present. Vitals: Estimated body mass index is 39.82 kg/m as calculated from the following: Height as of 24: 5' 4 . Weight as of this encounter: 232 lb. BP: 124/72 Patient's last menstrual period was 05/06/2024. ASSESSMENT & PLAN ICD-10-CM 1. Third trimester ([facility]) Z34.93 POCT urinalysis dipstick manually resulted 2. 37 weeks gestation of ([facility]) Z3A.37 Return OB: Patient presents [...] Britney Smith NP documented in this encounter [facility] 01-14-2025 History of Presen t illness Narrative Reason for Appointment: Patient ID: Hesham Avalos is a 24 y.o. female who presents for Routine Visit Patient presents today for Return OB appointment. MEDICATIONS Current Outpatient Medications Medication Instructions Ferrous Gluconate (IRON 27 PO) 1 each, Daily Etvlvfxn-Gkg-Yf-FA (PRE- PO) 1 each, Daily ALLERGIES No Known Allergies PROBLEMS Active Ambulatory Problems Diagnosis Date Noted History of placental abnormality 12/24/2024 Resolved Ambulatory Problems Diagnosis Date Noted Obesity affecting in second trimester ([facility]) 01/27/2023 Velamentous insertion of umbilical cord in second trimester ([facility]) 01/27/2023 Past Medical History: Diagnosis Date 6 weeks follow-up ([facility]) HISTORY PAST MEDICAL HISTORY SOCIAL HISTORY Past Medical History: Diagnosis Date 6 weeks follow-up ([facility]) Social History Tobacco Use Smoking [...] nursing note reviewed. Exam conducted with a sugar refinery supervisor present. Vitals: Estimated body mass index is 39.48 kg/m as calculated from the following: Height as of 11/21/23: 5' 4 . Weight as of this encounter: 230 lb. BP: 122/68 Patient's last menstrual period was 05/06/2024. ASSESSMENT & PLAN ICD-10-CM 1. Third trimester ([facility]) Z34.93 POCT urinalysis dipstick manually resulted CULTURE, GROUP B STREP WITH SUSCEPTIBLITY CULTURE, GROUP B STREP WITH SUSCEPTIBLITY 2. 36 weeks gestation of ([facility]) Z3A.36 Patient is doing well but has [...] Britney Smith NP documented in this encounter [facility] 01-06-2025 History of Presen t illness Narrative Reason for Appointment: Patient ID: Hesham Avalos is a 24 y.o. female who presents for Routine Visit Patient presents today for Return OB appointment. MEDICATIONS Current Outpatient Medications Medication Instructions Ferrous Gluconate (IRON 27 PO) 1 each, Daily Eydtoeqk-Tqy-Pd-FA (PRE-SIGIFREDO PO) 1 each, Daily ALLERGIES No Known Allergies PROBLEMS Active Ambulatory Problems Diagnosis Date Noted History of placental abnormality 12/24/2024 Resolved Ambulatory Problems Diagnosis Date Noted Obesity affecting in second trimester ([facility]) 01/27/2023 Velamentous insertion of umbilical cord in second trimester ([facility]) 01/27/2023 Past Medical History: Diagnosis Date 6 weeks follow-up ([facility]) HISTORY PAST MEDICAL HISTORY SOCIAL HISTORY Past Medical History: Diagnosis Date 6 weeks follow-up ([facility]) Social History Tobacco Use Smoking [...] ASSESSMENT & PLAN ICD-10-CM 1. Third trimester ([facility]) Z34.93 POCT urinalysis dipstick manually resulted 2. 35 weeks gestation of ([facility]) Z3A.35 Return OB: Patient presents today for [...] of: DIMAS Cormier documented in this encounter [facility] 12-24-2024 History of Presen t illness Narrative Reason for Appointment: Patient ID: Hesham Avalos is a 24 y.o. female who presents for Routine Visit Patient presents today for Return OB appointment. MEDICATIONS Current Outpatient Medications Medication Instructions Ferrous Gluconate (IRON 27 PO) 1 each, Daily Vvqbbeit-Jeh-Wm-FA (PRE-SIGIFREDO PO) 1 each, Daily ALLERGIES No Known Allergies PROBLEMS Active Ambulatory Problems Diagnosis Date Noted History of placental abnormality 12/24/2024 Resolved Ambulatory Problems Diagnosis Date Noted Obesity affecting in second trimester ([facility]) 01/27/2023 Velamentous insertion of umbilical cord in second trimester ([facility]) 01/27/2023 Past Medical History: Diagnosis Date 6 weeks follow-up ([facility]) HISTORY PAST MEDICAL HISTORY SOCIAL HISTORY Past Medical History: Diagnosis Date 6 weeks follow-up ([facility]) Social History Tobacco Use Smoking [...] nursing note reviewed. Exam conducted with a sugar refinery supervisor present. Vitals: Estimated body mass index is 39.31 kg/m as calculated from the following: Height as of 11/21/23: 5' 4 . Weight as of this encounter: 229 lb. BP: 124/70 Patient's last menstrual period was 05/06/2024. ASSESSMENT & PLAN ICD-10-CM 1. Third trimester ([facility]) Z34.93 POCT urinalysis dipstick manually resulted 2. 33 weeks gestation of ([facility]) Z3A.33 3. History of placental abnormality Z87.59 [...] Don Hidalgo DO documented in this encounter [facility] 12-12-2024 History of Presen t illness Narrative Reason for Appointment: Patient ID: Hesham Avalos is a 24 y.o. female who presents for Routine Visit Patient presents today for Return OB appointment. MEDICATIONS Current Outpatient Medications Medication Instructions Ferrous Gluconate (IRON 27 PO) 1 each, Daily Wnnanbcj-Fsr-Xl-FA (PRE-SIGIFREDO PO) 1 each, Daily ALLERGIES No Known Allergies PROBLEMS Active Ambulatory Problems Diagnosis Date Noted No Active Ambulatory Problems Resolved Ambulatory Problems Diagnosis Date Noted Obesity affecting in second trimester ([facility]) 01/27/2023 Velamentous insertion of umbilical cord in second trimester ([facility]) 01/27/2023 Past Medical History: Diagnosis Date 6 weeks follow-up ([facility]) HISTORY PAST MEDICAL HISTORY SOCIAL HISTORY Past Medical History: Diagnosis Date 6 weeks follow-up ([facility]) Social History Tobacco Use Smoking [...] ASSESSMENT & PLAN ICD-10-CM 1. Third trimester ([facility]) Z34.93 POCT urinalysis dipstick manually resulted 2. 31 weeks gestation of ([facility]) Z3A.31 Return OB: Patient presents [...] of: DIMAS Cormier documented in this encounter [facility] 11-28-2024 History of Presen t illness Narrative Reason for Appointment: Patient ID: Hesham Avalos is a 24 y.o. female who presents for Routine Visit Patient presents today for Return OB appointment. MEDICATIONS Current Outpatient Medications Medication Instructions Ferrous Gluconate (IRON 27 PO) 1 each, Daily Rsfwcmqx-Ogq-Gk-FA (PRE- PO) 1 each, Daily ALLERGIES No Known Allergies PROBLEMS Active Ambulatory Problems Diagnosis Date Noted No Active Ambulatory Problems Resolved Ambulatory Problems Diagnosis Date Noted Obesity affecting in second trimester ([facility]) 01/27/2023 Velamentous insertion of umbilical cord in second trimester ([facility]) 01/27/2023 Past Medical History: Diagnosis Date 6 weeks follow-up ([facility]) HISTORY PAST MEDICAL HISTORY SOCIAL HISTORY Past Medical History: Diagnosis Date 6 weeks follow-up ([facility]) Social History Tobacco Use Smoking [...] nursing note reviewed. Exam conducted with a sugar refinery supervisor present. Vitals: Estimated body mass index is 38.62 kg/m as calculated from the following: Height as of 11/21/23: 5' 4 . Weight as of this encounter: 225 lb. BP: 118/74 Patient's last menstrual period was 05/06/2024. ASSESSMENT & PLAN ICD-10-CM 1. Third trimester ([facility]) Z34.93 POCT urinalysis dipstick manually resulted 2. 29 weeks gestation of ([facility]) Z3A.29 Patient presents today [...] Don Hidalgo DO documented in this encounter [facility] 11-14-2024 History of Presen t illness Narrative Reason for Appointment: Patient ID: Hesham Avalos is a 24 y.o. female who presents for Routine Visit Patient presents today for Return OB appointment. MEDICATIONS Current Outpatient Medications Medication Instructions Ferrous Gluconate (IRON 27 PO) 1 each, Daily Vliahbin-Doc-Gg-FA (PRE-SIGIFREDO PO) 1 each, Daily ALLERGIES No Known Allergies PROBLEMS Active Ambulatory Problems Diagnosis Date Noted No Active Ambulatory Problems Resolved Ambulatory Problems Diagnosis Date Noted Obesity affecting in second trimester ([facility]) 01/27/2023 Velamentous insertion of umbilical cord in second trimester ([facility]) 01/27/2023 Past Medical History: Diagnosis Date 6 weeks follow-up ([facility]) HISTORY PAST MEDICAL HISTORY SOCIAL HISTORY Past Medical History: Diagnosis Date 6 weeks follow-up ([facility]) Social History Tobacco Use Smoking [...] & PLAN ICD-10-CM 1. Second trimester ([facility]) Z34.92 POCT urinalysis dipstick manually resulted 2. 27 weeks gestation of ([facility]) Z3A.27 Return OB: Patient presents [...] of: DIMAS Cormier documented in this encounter [facility] 10-17-2024 History of Presen t illness Narrative Reason for Appointment: Patient ID: Hesham Avalos is a 24 y.o. female who presents for Routine Visit Patient presents today for Return OB appointment. MEDICATIONS Current Outpatient Medications Medication Instructions Ferrous Gluconate (IRON 27 PO) 1 each, Daily Snqygibe-Urx-Di-FA (PRE- PO) 1 each, Daily ALLERGIES No Known Allergies PROBLEMS Active Ambulatory Problems Diagnosis Date Noted No Active Ambulatory Problems Resolved Ambulatory Problems Diagnosis Date Noted Obesity affecting in second trimester ([facility]) 01/27/2023 Velamentous insertion of umbilical cord in second trimester ([facility]) 01/27/2023 Past Medical History: Diagnosis Date 6 weeks follow-up ([facility]) HISTORY PAST MEDICAL HISTORY SOCIAL HISTORY Past Medical History: Diagnosis Date 6 weeks follow-up ([facility]) Social History Tobacco Use Smoking [...] nursing note reviewed. Exam conducted with a sugar refinery supervisor present. Vitals: Estimated body mass index is 38.66 kg/m as calculated from the following: Height as of 11/21/23: 5' 4 . Weight as of this encounter: 225 lb 4 oz. BP: 114/58 Patient's last menstrual period was 05/06/2024. ASSESSMENT & PLAN ICD-10-CM 1. Second trimester ([facility]) Z34.92 POCT urinalysis dipstick manually resulted 2. 23 weeks gestation of ([facility]) Z3A.23 3. Diabetes mellitus screening Z13.1 CBC Glucose tolerance, 1 hour CBC Glucose tolerance, 1 hour Patient presents today for a routine obstetrics appointment. Patient is currently 23w3d with a Estimated Date of Delivery: 02/10/25. Patient given orders for CBC/1hour gtt and is scheduled for with [facility] for repeat US. Patient to return to clinic in 4 weeks for return OB appointment. Documented by Franci Boyd LPN on behalf of: Don Hidalgo DO documented in this encounter [facility] 10-07-2024 [facility] Discharg e instructions Patient Education 10/07/2024 [...] care provider who specializes in women's health (distance education coordinator). How is this treated? Treatment for this [...] partner about your condition. General instructions Take lczq-wwt-ytahkmy and prescription medicines only as told by [...] sexual activity until your symptoms improve. Take liqx-pkq-svnpagx and prescription medicines only as told by [...] provider. Document Revised: 2021 Document Reviewed: 2021 [employer] Patient Education 2023 [employer]. Follow Up Care 08/08/2024 12:40:44 With:TINO MACK, Darin Cummins, URL Address: [facility] [address], [place] [address]- [phone] When: only if needed [facility] 10-07-2024 Note Patient Education Obstetrics and [...] care provider who specializes in women's health (distance education coordinator). How is this treated? Treatment for this [...] about your condition. General instructions ??? Take aild-kbg-zmcdsxs and prescription medicines only as told by [...] activity until your symptoms improve. ??? Take pjpy-osf-lijhlti and prescription medicines only as told by your health care provider. ??? Contact a health care provider if your symptoms get worse or do not improve with treatment. ??? Keep all follow-up visits. This is important. This information is not intended to replace (more content not included)... [facility] 09-23-2024 History of Presen t illness Narrative [...] GENDER Have you been seen here at [facility] in a previous ? No Recent ER visits or hospitalizations? No Bring blood sugar log or meter with you today? (Please bring them with you for every visit at [facility]) n/a Flu vaccine (Feb-June)? No Any [...] insurance preference.., Disp: 100 each, Rfl: 1 imz263-yijk-gqlwj-nj1 (DUET DHA WITH OMEGA-3) 25 mg iron-1 mg -400 mg combo pack, Take by mouth., Disp: , Rfl: ferrous sulfate (HIGH POTENCY IRON) 27 mg iron tablet, Take by mouth. (Patient not taking: Reported on 09/23/2024), Disp: , Rfl: qhb195-wxgw-jvtno-om9 25 mg iron-1 mg -400 mg combo [...] 39 weeks 8. Delivery method preferred vaginal. [facility] C/S for usual obstetrical indications TIME OF CONSULTATION: We spent 30 minutes with the patient, >50% in discussion and counseling, coordination of care which was xqml-vs-foao. documented in this encounter [facility] 09-17-2024 History of Presen t illness Narrative Reason for Appointment: Patient ID: Hesham Avalos is a 24 y.o. female who presents for Routine Visit Patient presents today for Acute Visit. and Return OB appointment. MEDICATIONS Current Outpatient Medications Medication Instructions Ferrous Gluconate (IRON 27 PO) 1 each, Daily Terjdfeo-Ruf-Um-FA (PRE- PO) 1 each, Daily ALLERGIES No [...] Gluconate (IRON 27 PO) 1 each, Daily Jhhktrrf-Vpb-Et-FA (PRE-SIGIFREDO PO) 1 each, Daily ALLERGIES No [...] nursing note reviewed. Exam conducted with a sugar refinery supervisor present. Vitals: Estimated body mass index is [...] of: DIMAS Cormier documented in this encounter [facility] 08-20-2024 History of Presen t illness Narrative Reason for Appointment: Patient ID: Hesham Avalos is a 24 y.o. female who presents for Routine Visit Patient presents today for Return OB appointment. MEDICATIONS Current Outpatient Medications Medication Instructions Ferrous Gluconate (IRON 27 PO) 1 each, Daily Omreoofi-Tqg-Bk-FA (PRE- PO) 1 each, Daily ALLERGIES No [...] nursing note reviewed. Exam conducted with a sugar refinery supervisor present. Vitals: Estimated body mass index is [...] Don Hidalgo DO documented in this encounter [facility] 08-05-2024 Note Patient Education Urology Cystoscopy [...] including vitamins, herbs, eye drops, creams, and dzxa-awp-azlazyb medicines. ??? Any problems you or family [...] tells you to take them. ??? Taking nrhk-xmd-rnegujn medicines, vitamins, herbs, and supplements. Tests You [...] care provider can clearly examine your bladder clovin. ??? Your doctor will look at the [...] these instructions at home: Medicines ??? Take plfd-vva-uasgqgv and prescription medicines only as told by [...] (biopsy) during your (more content not included)... [facility] 07-23-2024 History of Presen t illness Narrative Reason for Appointment: Patient ID: Hesham Avalos is a 23 y.o. female who presents for No chief complaint on file. Patient presents today for Return OB appointment. MEDICATIONS Current Outpatient Medications Medication Instructions Ferrous Gluconate (IRON 27 PO) 1 each, Daily Iypnjcfx-Tla-Ml-FA (PRE-SIGIFREDO PO) 1 each, Daily ALLERGIES No [...] nursing note reviewed. Exam conducted with a sugar refinery supervisor present. Vitals: Estimated body mass index is [...] or undercooked meat, and stay away from [facility]. Patient has been consulted regarding any further do's and don'ts of . Patient voiced understanding and all questions and concerns were answered. Cultures obtained. Pt being referred to [facility] for h/o placental abnormality (vasa previa). Pt has cyst on urethra- referred to urologist Orders Placed This Encounter Procedures CHLAMYDIA TRACHOMATIS (GENITO/STI) Neisseria gonorrhea DNA probe, direct POCT urinalysis dipstick manually resulted Follow Up: Patient is to return in 4 weeks for routine OB appointment. Documented by Brittany Christensen LPN on behalf of: Don Hidalgo DO documented in this encounter [facility] 05-24-2023 History of Presen t illness Narrative Hesham Avalos is a 22 y.o. female presents with chief complaint of Establish Care HPI: Patient presents today for VIDEO PHOTOGRAPHER appointment- to establish care with new provider. SUBJECTIVE: MEDICATIONS: Current Outpatient Medications Medication Instructions Sjihrm-FuYjdj-Knphj-FA-[place] 3 (Duet DHA 400) 25-1 & 400 MG misc Oral ALLERGIES: No Known Allergies SURGICAL HISTORY: Past Surgical History: Procedure Laterality Date MOUTH SURGERY 2018 MYRINGOTOMY W/ TUBES 2003 FAMILY HISTORY: Family History Problem Relation Name Age of Onset Hypertension Maternal Grandmother Fior Diabetes Maternal Grandmother Fior Cancer Maternal Grandfather Cancer Paternal Grandfather Rajta SOCIAL HISTORY: Social History Tobacco Use Smoking [...] tenderness or frontal sinus tenderness. Mouth/Throat: Lips: [place]. Mouth: Mucous membranes are moist. Pharynx: Oropharynx [...] follow-ups on file. documented in this encounter [facility] 04-12-2023 History of Presen t illness [...] Drug Allergies CURRENT MEDICATIONS: Current Outpatient Medications: [id number]-mntj-ghtjz-xj1 (DUET DHA WITH OMEGA-3) 25 mg iron-1 [...] insurance preference.., Disp: 100 each, Rfl: 1 hoh782-vbgo-njoja-vd7 25 mg iron-1 mg -400 mg combo [...] patient is in complete care of her manager six sigma. Patient does have ultrasound and office visit scheduled with us. Thank you for allowing me to participate in the care of Hesham Avalos. If there any questions please do not hesitate to contact us. Daniella Reina MD Maternal- Medicine [facility] [address] [facility] 1st [place] [address] [facility], the CDC, and other organizations representing maternal and public health professionals recommend that , , and lactating people and those considering receive the COVID-19 vaccination. Vaccination is the best method to reduce maternal and complications of SARS-CoV-2 infection. This document was created with [employer] technology. Though I make every effort to review the dictation as it is transcribed, on occasion the spoken word can be misinterpreted by the technology leading to inappropriate words, phrases, or sentences. This note is addressed to the requesting provider as a consultation for clinical guidance. Specific medical abbreviations are occasionally used and those are generally approved by the [place]?Board of?Obstetrics and?Gynecology?as well as?[employer] s abbreviations. The above plan of care was based solely on the diagnoses for which a consultation was requested. ?More frequent testing may be indicated based on her other medical/obstetrical conditions. The management of other or medical conditions is beyond the scope of requested consultation and will continue to be followed by the primary manager six sigma or primary care provider. Note to patient: [...] of the practitioner. documented in this encounter [facility] System Evaluation + Plan note No data available for this section [facility] [employer] Evaluation note Diagnosis Encounter for wellness examination- Primary Anemia, unspecified type documented in this encounter [facility] HealthcareEvaluation note* Diagnosis 35 weeks gestation of - Primary Polyhydramnios affecting documented in this encounter [facility] SystemEvaluation note* Diagnosis 11 weeks gestation of First trimester state, incidental History of placental abnormality Vaginal discharge Leukorrhea, not specified as infective Urethral cyst Other specified disorders of urethra documented in this encounter [facility] HealthcareEvaluation note* Diagnosis Second trimester state, incidental 15 weeks gestation of Diabetes mellitus screening Screening for diabetes mellitus documented in this encounter [facility] HealthcareEvaluation note* Diagnosis Obesity affecting in second trimester, unspecified obesity type- Primary documented in this encounter [facility] SystemEvaluation note* Diagnosis Polyhydramnios affecting - Primary Low-lying placenta Hemorrhage from placenta previa, unspecified as to episode of care Placenta previa in second trimester Velamentous insertion of umbilical cord in second trimester Vasa previa, single or unspecified fetus History of hemorrhage, currently in second trimester documented in this encounter [facility] SystemEvaluation note* Diagnosis Second trimester state, incidental 19 weeks gestation of Screening, , for anatomic survey Encounter for anatomic survey documented in this encounter [facility] HealthcareEvaluation note* Diagnosis Second trimester (HHS-HCC) state, [...] available for this section [facility] Summary Purpose Family History No Family [...] Reina MD [address] [place] [address] Referral ID Status Reason Start Date Expiration Date V isits Requested Visits Authorized [id number] Pending Review 1 1 Referral ID Status Reason Start Date Expiration Date V isits Requested Visits Authorized [id number] Pending Review 1 1 Additional Source Comments INFORMATION SOURCE (unrecogn ized section and content) DATE CREATED AUTHOR 10/05/2018 [facility] DATE CREATED AUTHOR AUTHOR'S ORGANIZ ATION 04/13/2022 [facility] DATE CREATED AUTHOR AUTHOR'S ORGANIZ ATION 07/27/2024 [facility] DATE CREATED AUTHOR AUTHOR'S ORGANIZ ATION 09/24/2024 [facility] DATE CREATED AUTHOR AUTHOR'S ORGANIZ ATION 10/08/2024 [facility] DATE CREATED AUTHOR AUTHOR'S ORGANIZ ATION 10/29/2024 [facility] DATE CREATED AUTHOR AUTHOR'S ORGANIZ ATION 01/25/2025 [facility] EPIC Care Teams (unrecognized sec tion and content) Transport Tank Technician Relationship Specialty Start Date End Date Taisha Pena MD [address] [facility] [place] [address] PCP - General Family Medicine 05/03/23 Transport Tank Technician Relationship Specialty Start Date End Date Taisha Pena MD [address] [facility] [place] [address] PCP - General Family Medicine 05/03/23 Transport Tank Technician Relationship Specialty Start Date End Date Taisha Pena MD [address] [facility] [place] [address] PCP - General Family Medicine 05/03/23 Transport Tank Technician Relationship Specialty Start Date End Date Taisha Pena MD [address] [place] [address] PCP - General Family Medicine 05/03/23 Transport Tank Technician Relationship Specialty Start Date End Date Taisha Pena MD [address] [place] [address] PCP - General Family Medicine 05/03/23 Transport Tank Technician Relationship Specialty Start Date End Date Taisha Pena MD [address] [place] [address] PCP - General Family Medicine 05/03/23 Transport Tank Technician Relationship Specialty Start Date End Date Taisha Pena MD [address] [place] [address] PCP - General Family Medicine 05/03/23 Transport Tank Technician Relationship Specialty Start Date End Date Taisha Pena MD [address] [place] [address] PCP - General Family Medicine 05/03/23 Stephanie Sotelo NP [address] [place] [address] PCP - [facility] 07/16/24 Transport Tank Technician Relationship Specialty Start Date End Date Taisha Pena MD [address] [place] [address] PCP - General Family Medicine 05/03/23 Stephanie Sotelo NP [address] [place] [address] PCP - [employer] 07/16/24 Transport Tank Technician Relationship Specialty Start Date End Date Taisha Pena MD [address] [facility] [place] [address] PCP - General Family Medicine 05/03/23 Stephanie Sotelo NP [address] [place] [address] PCP - [employer] 07/16/24 Transport Tank Technician Relationship Specialty Start Date End Date Taisha Pena MD [address] [place] [address] PCP - General Family Medicine 05/03/23 Stephanie Sotelo NP [address] [place] [address] PCP - [employer] 07/16/24 Transport Tank Technician Relationship Specialty Start Date End Date Taisha Pena MD [address] [place] [address] PCP - General Family Medicine 05/03/23 Stephanie Sotelo NP [address] [place] [address] PCP - [employer] 07/16/24 Transport Tank Technician Relationship Specialty Start Date End Date Taisha Pena MD [address] [place] [address] PCP - General Family Medicine 05/03/23 Stephanie Sotelo NP [address] [facility], [place] [id number] PCP - [employer] 07/16/24 Transport Tank Technician Relationship Specialty Start Date End Date Taisha Pena MD [address] [place], [place] [id number] PCP - General Family Medicine 05/03/23 Stephanie Sotelo NP [address] [place] [address] PCP - [employer] 07/16/24 Reason for Visit (unrecogniz ed [...] BE BASED ON THE PRIMARY CLINICAL RECORDS. [facility]. provides no warranty or guarantee of the accuracy or completeness of information in this document.
[2025-01-29 13:14] VITALS: BP 125/69; PULSE 99
== END 2025-01-29 14:11 | disposition home or self-care (01) ==
LOC: FBCO 12:59 → FBC 13:01
PROVIDERS: PCP Family Medicine; Visit Provider Obstetrics & Gynecology
DX: O36.63X0 Maternal care for excessive fetal growth, third trimester, not applicable or unspecified (principal); Z3A.38 38 weeks gestation of pregnancy
CPT/HCPCS: 59025

== ENCOUNTER 2025-02-01 10:02 | Outpatient (OUT) | payer BC, SELFPAY ==
--- OUTSIDE RECORDS SUMMARY | 2025-02-01 10:05 | XMS_ITS | CCD ---
Author Organization [facility] Care Team Providers Care Clerk Of Works Name Role Phone DR DON HIDALGO Admitting [...] Unavailable ROCKY, Don R Referring Unavailable Ashleigh AUXILIARY POWERPLANT OPERATOR, Stephanie Villagran Unavailable ROCKY, DON R Referring Unavailable ROCKY, DON Attending Unavailable ROCKY, DON Attending Unavailable JESUS, KATHIE Attending Unavailable ROCKY, DON Attending Unavailable JESUS, KATHIE Attending Unavailable ROCKY, DON Attending Unavailable JESUS, KATHIE Attending Unavailable ROCKY, DON Attending Unavailable JESUS, KATHIE Attending Unavailable ROCKY, DON Referring Unavailable BRITNEY SMITH Attending Unavailable LUIS, BRITNEY Attending Unavailable JESUS, KATHIE Attending Unavailable Medications [...] procedure, # 2 cap(s), Refills(s) 0, Pharmacy: [facility] [id number], 163, cm, 08/05/24 13:19:00 EDT, Height/Length Dosing, [...] mg iron tablet Take by mouth. Active Hsfqfn-VkBtjv-Ixwpp-FA-Robert 3 (Duet DHA 400) 25-1 & 400 MG misc (2 sources) Gupgij-NsPzjv-No kro-JQ-Dpxif 3 (Duet DHA 400) 25-1 & 400 MG misc Take by mouth. 0 Active Kgfekxvk-Abu-Fh-FA (PRE-SIGIFREDO PO) (20 sources) take 1 dose by mouth once daily Txocyucp-Aub-Tf-FA (PRE-SIGIFREDO PO) Take 1 each by mouth Daily Active Multivitamins (1 source) Start : 07-31 take 1 tablet by mouth once daily Multivitamins 1 tab(s), Oral, Daily, Refill(s) 0 Start Date: 07/31/24 Status: Ordered Repeat number: 1 wnw301-xcpd-rgkws-r m3 (DUET DHA WITH OMEGA-3) 25 mg iron-1 mg -400 mg combo pack (4 sources) yde222- pqom-rvyvc-gs9 (DUET DHA WITH OMEGA-3) 25 mg iron-1 mg -400 mg combo pack Take by mouth. Active aoy151- zzxm-pgozp-tq5 (DUET DHA WITH OMEGA-3) 25 mg iron-1 mg -400 mg combo pack Take by mouth. 0 Active rbp511-pxja-xwnzf-q m3 25 mg iron-1 mg -400 mg combo pack (4 sources) dxk271- pyfk-niwwg-nh1 25 mg iron-1 mg -400 mg combo pack Take by mouth. Active ovx266- pkbw-eblmj-fj1 25 mg iron-1 mg -400 mg combo [...] [37 weeks gestation of ] 01-23-2025 Episodic Residual codes; unclassified (2 sources) Gestation period, 38 weeks; Translations: [38 weeks gestation of ] 01-29-2025 Episodic Past or Other Problems Problem Classification [...] Range Facility Urinalysis macro (dipstick) panel (U)on 01-29-2025 Bilirubin, UA Negative Negative - 4(70) +++ mg/dL [facility] Blood, UA Negative Negative - 50 Eulogio/mcL [facility] Clarity, UA Clear formerly [facility] re Color, UA Yellow [facility] e Glucose, UA Negative Negative - 1999(110) ++++ mg/dL [facility] Interpretation and review of laboratory results Abnormal [facility] Ketones, UA Positive Negative - 160(16) ++++ mg/dL [facility] Leukocytes, UA Negative Negative - 500+++ Rufina/mcL [facility] Nitrite, UA Negative Negative - Positive [facility] pH, [facility] 6.0 5 - [facility] Protein, UA Positive Negative - 1999(20) ++++ mg/dL [facility] Spec Grav, UA 1.020 1 - 1.03 [facility] Urobilinogen, UA 2.0 0.2 - 12 mg/dL [facility] US OB BPP W NON-STRESS on 01-25-2025 [place] [address] Ultrasound Report Signed Patient: HESHAM AVALOS MR#: [id number] : 2000 Acct:[id number] Age/Sex: 24 / F ADM Date: 01/25/25 Loc: US Attending Dr: Britney Smith Ordering Physician: Britney Smith Date of Service: 01/25/25 Procedure(s): US OB BPP w non-stress Accession Number(s): [id number] cc: Britney Smith; TAISHA PENA [place] [address] Patient Name: HESHAM AVALOS MRN: [facility]:[id number] date: 2000 Sex: F Assigned Patient Location: [facility] Current Patient Location: Accession/Order Number: [id number] Exam Date: 01/25/2025 10:07 Report Date: 01/25/2025 11:11 At the request of: BRITNEY SMITH Procedure: US OB BPP w non-stress Ultrasound biophysical profile INDICATION: Excessive growth Findings and impression: 11/22 score biophysical profile and ZEB measures 20.9 cm. heart rate 139 beats per minutes. Impression dictated by: Juan M Newman M.D. 01/25/2025 11:11 AM Dictation Location: [place] [address] Electronically authenticated by: [id number] Y Date: 01/25/2025 11:11 Dictated By: Juan M Newman M.D. Signed By: 01/25/25 1114 DD/ 1111 TD/TT: Motor Vehicle Salesperson: [facility] Radiology, Radiologist, MD - 01/25/2025 [place] [address] Ultrasound Report Signed Patient: HESHAM AVALOS MR#: [id number] : 2000 Acct:[id number] Age/Sex: 24 / F ADM Date: 01/25/25 Loc: US Attending Dr: Britney Smith Ordering Physician: Britney Smith Date of Service: 01/25/25 Procedure(s): US OB BPP w non-stress Accession Number(s): [id number] cc: Britney Smith; TAISHA PENA [place] [id number] Patient Name: HESHAM AVALOS MRN: [facility]:[id number] date: 2000 Sex: F Assigned Patient Location: [facility] Current Patient Location: Accession/Order Number: [id number] Exam Date: 01/25/2025 10:07 Report Date: 01/25/2025 11:11 At the request of: BRITNEY SMITH Procedure: US OB BPP w non-stress Ultrasound biophysical profile INDICATION: Excessive growth Findings and impression: 11/22 score biophysical profile and ZEB measures 20.9 cm. heart rate 139 beats per minutes. Impression dictated by: Juan M Newman M.D. 01/25/2025 11:11 AM Dictation Location: [place] [address] Electronically authenticated by: [id number] Y Date: 01/25/2025 11:11 Dictated By: Juan M Newman M.D. Signed By: 01/25/25 1114 DD/ 1111 TD/TT: Motor Vehicle Salesperson: [facility] Radiology Study observation (narrative) [facility] US OB BPP W NON-STRESS Ordered By: Radiologist Radiology on 01-25-2025 [facility] [employer] Work Phone: Urinalysis macro (dipstick) panel (U)on 01-23-2025 Bilirubin, UA Negative Negative - 4(70) +++ mg/dL [facility] Blood, UA Positive Negative - 50 Eulogio/mcL [facility] Comment on above: 3+ Clarity, UA Clear [facility] re Color, UA Yellow [facility] Glucose, UA Negative Negative - 2000(110) ++++ mg/dL [facility] Interpretation and review of laboratory results Abnormal [facility] Ketones, UA Negative Negative - 160(16) ++++ mg/dL [facility] Leukocytes, UA Negative Negative - 500+++ Rufina/mcL [facility] Nitrite, UA Negative Negative - Positive [facility] pH, UA 6.5 5 - 9 [facility] Protein, UA Negative Negative - 2000(20) ++++ mg/dL [facility] Spec Grav, UA 1.02 1 - 1.03 [facility] Urobilinogen, UA 0.2 0.2 - 12 mg/dL [facility] STREP GP B CULTURE+RFLXon STREP GP B CULTURE+RFLX Strep Gp B Culture+Rflx [facility] STREP GP B CULTURE+RFLX Negative [facility] STREP GP B CULTURE+RFLX Centers for Disease Control and Prevention (CDC) and [facility] STREP GP B CULTURE+RFLX [place] [employer] [facility] STREP GP B CULTURE+RFLX (ACOG) guidelines for prevention of group B [facility] STREP GP B CULTURE+RFLX streptococcal (GBS) disease specify co-collection of [facility] STREP GP B CULTURE+RFLX a vaginal and rectal swab specimen to maximize [facility] STREP GP B CULTURE+RFLX sensitivity of GBS detection. Per the CDC and ACOG, [facility] STREP GP B CULTURE+RFLX swabbing both the lower vagina and rectum [facility] STREP GP B CULTURE+RFLX substantially increases the yield of detection [facility] STREP GP B CULTURE+RFLX compared with sampling the vagina alone. [facility] STREP GP B CULTURE+RFLX Penicillin G, ampicillin, or cefazolin are indicated [facility] STREP GP B CULTURE+RFLX for intrapartum prophylaxis of GBS [facility] STREP GP B CULTURE+RFLX colonization. Reflex susceptibility testing should be [facility] STREP GP B CULTURE+RFLX performed prior to use of clindamycin only on GBS [facility] STREP GP B CULTURE+RFLX isolates from penicillin-allergic women who are [facility] STREP GP B CULTURE+RFLX considered a high risk for anaphylaxis. Treatment with [facility] STREP GP B CULTURE+RFLX vancomycin without additional testing is warranted if [facility] Healthcare STREP GP B CULTURE+RFLX resistance to clindamycin is noted. [facility] Healthcare STREP GP B CULTURE+RFLX Performed at: [facility] STREP GP B CULTURE+RFLX [address], [place] [id number] [facility] STREP GP B CULTURE+RFLX Paint Dipper: Andrade Curry PhD, Phone: [phone] [facility] NON-STRESS on 01-18-2025 [place] [address] Ultrasound Report Signed Patient: HESHAM AVALOS MR#: [id number] : 2000 Acct:[id number] Age/Sex: 24 / F ADM Date: 01/18/25 Loc: US Attending Dr: Britney Smith Ordering Physician: Britney Smith Date of Service: 01/18/25 Procedure(s): US OB BPP w non-stress Accession Number(s): [id number] cc: Britney Smith; TAISHA PENA [place] [address] Patient Name: HESHAM AVALOS MRN: [id number] date: 2000 Sex: F Assigned Patient Location: [facility] Current Patient Location: Accession/Order Number: [id number] Exam Date: 01/18/2025 10:14 Report Date: 01/18/2025 12:13 At the request of: BRITNEY SMITH Procedure: US OB BPP w non-stress Biophysical profile. Reason for exam: Excessive growth COMPARISON: 12/14/2024 TECHNIQUE: Transabdominal imaging of the gravid uterus was obtained. FINDINGS: The sales floor manager reports a BPP of 8 out of 8. ZEB is normal at 17.2 cm. heart rate 158 bpm. US/US OB BPP w non-stress IMPRESSION: BPP 8 out of 8. Impression dictated by: Wayne Murray Jr., D.O. 01/18/2025 12:13 PM Dictation Location: [place] [address] Electronically authenticated by: [id number] Y Date: 01/18/2025 12:13 Dictated By: Wayne Murray M.D. Signed By: 01/18/251215 DD/ 12 TD/TT: Motor Vehicle Salesperson: [facility] Radiology, Radiologist, - 01/18/2025 [place] [address] Ultrasound Report Signed Patient: HESHAM AVALOS MR#: [id number] : 2000 Acct:[id number] Age/Sex: 24 / F ADM Date: 01/18/25 Loc: US Attending Dr: Britney Smith Ordering Physician: Britney Smith Date of Service: 01/18/25 Procedure(s): US OB BPP w non-stress Accession Number(s): [id number] cc: Britney Smith; TAISHA PENA [place] [address] Patient Name: HESHAM AVALOS MRN: [facility]:[id number] date: 2000 Sex: F Assigned Patient Location: [facility] Current Patient Location: Accession/Order Number: [id number] Exam Date: 01/18/2025 10:14 Report Date: 01/18/2025 12:13 At the request of: BRITNEY SMITH Procedure: US OB BPP w non-stress Biophysical profile. Reason for exam: Excessive growth COMPARISON: 12/14/2024 TECHNIQUE: Transabdominal imaging of the gravid uterus was obtained. FINDINGS: The sales floor manager reports a BPP of 8 out of 8. ZEB is normal at 17.2 cm. heart rate 158 bpm. US/US OB BPP w non-stress IMPRESSION: BPP 8 out of 8. Impression dictated by: Wayne Murray Jr., D.O. 01/18/2025 12:13 PM Dictation Location: [place] [address] Electronically authenticated by: [id number] Y Date: 01/18/2025 12:13 Dictated By: Wayne Murray M.D. Signed By: 01/18/251215 DD/ 12 TD/TT: Motor Vehicle Salesperson: [facility] Radiology Study observation (narrative) [facility] US OB BPP W NON-STRESS Ordered By: Radiologist Radiology on 01-18-2025 [facility] [employer] Work Phone: US OB FOLLOW UP [...] UA Negative Negative - 4(70) +++ mg/dL [facility] Blood, UA Negative Negative - 50 Eulogio/mcL [facility] Clarity, UA Clear [facility] re Color, UA Yellow [facility] Glucose, UA Negative Negative - 2000(110) ++++ mg/dL [facility] Interpretation and review of laboratory results Abnormal [facility] Ketones, UA Negative Negative - 160(16) ++++ mg/dL [facility] Leukocytes, UA Negative Negative - 500+++ Rufina/mcL [facility] Nitrite, UA Negative Negative - Positive [facility] pH, UA 6 5 - 9 [facility] Protein, UA 1+ Negative - 1999(20) ++++ mg/dL [facility] Spec Grav, UA 1.02 1 - 1.03 [facility] Urobilinogen, UA 1.0 0.2 - 12 mg/dL [facility] Urinalysis macro (dipstick) panel (U)on 01-06-2025 Bilirubin, UA Positive Negative - 4(70) +++ mg/dL [facility] Comment on above: 1+ Blood, UA Negative Negative - 50 Eulogio/mcL [facility] Healthcare Clarity, UA Clear [facility] Color, UA Yellow [facility] Glucose, UA Negative Negative - 1999(110) ++++ mg/dL [facility] Interpretation and review of laboratory results Abnormal [facility] Ketones, UA Positive Negative - 160(16) ++++ mg/dL [facility] Comment on above: Trace Leukocytes, UA Positive Negative - 500+++ Rufina/mcL [facility] Comment on above: 1+ Nitrite, UA Negative Negative - Positive [facility] pH, UA 6 5 - 9 [facility] e Protein, UA Positive Negative - 1999(20) ++++ mg/dL [facility] Comment on above: 1+ Spec Grav, UA 1.025 1 - 1.03 [facility] Urobilinogen, UA 0.2 0.2 - 12 mg/dL [facility] Urinalysis macro (dipstick) panel (U)on 12-24-2024 Bilirubin, UA Negative Negative - 4(70) +++ mg/dL [facility] Blood, UA Negative Negative - 50 Eulogio/mcL [facility] Healthcare Clarity, UA Clear [facility] Color, UA Yellow [facility] Glucose, UA Negative Negative - 1999(110) ++++ mg/dL [facility] Interpretation and review of laboratory results Abnormal [facility] Ketones, UA Negative Negative - 160(16) ++++ mg/dL [facility] Leukocytes, UA Negative Negative - 500+++ Rufina/mcL [facility] Nitrite, UA Negative Negative - Positive [facility] Healthcare pH, UA 6.5 5 - 9 [facility] Protein, UA 1+ Negative - 1999(20) ++++ mg/dL [facility] Spec Grav, UA 1.015 1 - 1.03 [facility] Urobilinogen, UA 1.0 0.2 - 12 mg/dL [facility] US OB GROWTHon 12-14-2024 [place] [address] Ultrasound Report Signed Patient: HESHAM AVALOS MR#: [id number] : 2000 Acct:[id number] Age/Sex: 24 / F ADM Date: 12/14/24 Loc: US Attending Dr: Don Hidalgo D.O. Ordering Physician: Don Hidalgo D.O. Date of Service: 12/14/24 Procedure(s): US OB growth Accession Number(s): [id number] cc: Don Hidalgo D.O.; TAISHA PENA [place] [address] Patient Name: HESHAM AVALOS MRN: [id number] date: 2000 Sex: F Assigned Patient Location: Current Patient Location: Accession/Order Number: [id number] Exam Date: 12/14/2024 09:50 Report Date: 12/14/2024 [...] Atkinson M.D. 12/14/2024 11:17 AM Dictation Location: [place] [address] Electronically authenticated by: [id number] Y Date: 12/14/2024 11:17 Dictated By: Wilfrido Atkinson M.D. Signed By: 12/14/24 1119 DD/ 1117 TD/TT: Motor Vehicle Salesperson: [facility] Radiology, Radiologist, MD - 12/14/2024 [place] [address] Ultrasound Report Signed Patient: HESHAM AVALOS MR#: [id number] : 2000 Acct:[id number] Age/Sex: 24 / F ADM Date: 12/14/24 Loc: US Attending Dr: Don Hidalgo D.O. Ordering Physician: Don Hidalgo D.O. Date of Service: 12/14/24 Procedure(s): US OB growth Accession Number(s): [id number] cc: Don Hidalgo D.O.; TAISHA PENA [place] [address] Patient Name: HESHAM AVALOS MRN: [facility]:[id number] date: 2000 Sex: F Assigned Patient Location: US Current Patient Location: US Accession/Order Number: [id number] Exam Date: 12/14/2024 09:50 Report Date: 12/14/2024 [...] hemorrhage. Pelvic survey reveals no gross abnormalities. US/ OB growth IMPRESSION: Single live IUP. The fetus has an estimated gestational age of 35 weeks and 2 days by measurements which is advanced compared to the estimated gestational age of 31 weeks and 5 days based on dates. Impression dictated by: Wilfrido Atkinson M.D. 12/14/2024 11:17 AM Dictation Location: [address] [employer] Electronically authenticated by: [id number] Y Date: 12/14/2024 11:17 Dictated By: Wilfrido Atkinson M.D. Signed By: 12/14/24 1119 DD/ 1117 TD/TT: Motor Vehicle Salesperson: [facility] Radiology Study observation (narrative) [facility] OB GROWTHOrdered By: Nini vigil Radiology on 12-14-2024 [facility] [employer] Work Phone: Urinalysis macro (dipstick) panel (U)on 12-12-2024 Bilirubin, UA Negative Negative - 4(70) +++ mg/dL [facility] Blood, UA Negative Negative - 50 Eulogio/mcL [facility] Clarity, UA Clear [facility] re Color, UA Hattie [facility] Glucose, UA Negative Negative - 1999(110) ++++ mg/dL [facility] Interpretation and review of laboratory results Abnormal [facility] Ketones, UA Negative Negative - 160(16) ++++ mg/dL [facility] Leukocytes, UA Positive Negative - 500+++ Rufina/mcL [facility] Comment on above: Trace Nitrite, UA Negative Negative - Positive [facility] pH, UA 6 5 - 9 [facility] [employer] Protein, UA Positive Negative - 1999(20) ++++ mg/dL [facility] Comment on above: 1+ Spec Grav, UA 1.02 1 - 1.03 [facility] Urobilinogen, UA 0.2 0.2 - 12 mg/dL [facility] Urinalysis macro (dipstick) panel (U)on 11-28-2024 Bilirubin, UA 1+ Negative - 4(70) +++ mg/dL [facility] Blood, UA Negative Negative - 50 Eulogio/mcL [facility] Clarity, UA Clear [facility] re Color, UA Yellow [facility] Glucose, UA Negative Negative - 1999(110) ++++ mg/dL [facility] Interpretation and review of laboratory results Abnormal [facility] Ketones, UA Negative Negative - 160(16) ++++ mg/dL [facility] Leukocytes, UA 1+ Negative - 500+++ Rufina/mcL [facility] Nitrite, UA Negative Negative - Positive [facility] pH, UA 6 5 - 9 [facility] e Protein, UA 1+ Negative - 1999(20) ++++ mg/dL [facility] Spec Grav, UA 1.015 1 - 1.03 [facility] Urobilinogen, UA 1.0 0.2 - 12 mg/dL [facility] ALL CBC WITH AUTO DIFFon BASOPHILS ABSOLUTE AUTO 0 [facility] Basophils/100 WBC (Bld) 0.2 % 0.2 - 2.0 % [facility] Eosinophils/100 WBC (Bld) 0.2 % Low 0.9 - 7.0 % [facility] Erythrocyte distribution width (RBC) [Ratio] 13.7 % 11.0 - 15.0 % [facility] Hematocrit (Bld) [Volume fraction] 32.3 % Low 36.0 - 48.0 % [facility] Hemoglobin (Bld) [Mass/Vol] 10.6 g/dL Low 12.0 - 16.0 g/dL [facility] IMMATURE GRANULOCYTES ABS AUTO 0.04 High [facility] Immature granulocytes/100 WBC (Bld) 0.4 % 0.0 - 0.5 % [facility] Interpretation and review of laboratory results Abnormal [facility] LYMPHOCYTES ABSOLUTE AUTO 1.5 [facility] Lymphocytes/100 WBC (Bld) 16.2 % Low 20.5 - 60.0 % [facility] MCH (RBC) [Entitic mass] 30.9 pg 26.7 - 34.0 pg [facility] MCHC (RBC) [Mass/Vol] 32.8 g/dL 29.9 - 35.2 g/dL [facility] MCV (RBC) [Entitic vol] 94.2 fL 81.0 - 99.0 fL [facility] MONOCYTES ABSOLUTE AUTO 0.5 [facility] Monocytes/100 WBC (Bld) 5.8 % 1.7 - 12.0 % [facility] NEUTROPHILS ABSOLUTE AUTO 6.9 High [facility] Neutrophils/100 WBC (Bld) 77.2 % High 43.0 - 75.0 % [facility] Platelet mean volume (Bld) [Entitic vol] 10.1 fL 9.5 - 13.5 fL [facility] Health are [facility]H EO # 0 [facility] PLT 183 [facility] TB RBC 3.43 Low [facility] TB WBC 9 [facility] Urinalysis macro (dipstick) panel (U)on 11-14-2024 Bilirubin, UA Negative Negative - 4(70) +++ mg/dL [facility] Blood, UA Negative Negative - 50 Eulogio/mcL [facility] Clarity, UA Clear [facility] Color, UA Yellow [facility] Glucose, UA Negative Negative - 1999(110) ++++ mg/dL [facility] Interpretation and review of laboratory results Abnormal [facility] Ketones, UA Negative Negative - 160(16) ++++ mg/dL [facility] Leukocytes, UA Positive Negative - 500+++ Rufina/mcL [facility] Healthcare Comment on above: Small Nitrite, UA Negative Negative - Positive [facility] pH, UA 6.5 5 - 9 [facility] Protein, UA Positive Negative - 1999(20) ++++ mg/dL [facility] Comment on above: Small Spec Grav, UA 1.015 1 - 1.03 [facility] Urobilinogen, UA 0.2 0.2 - 12 mg/dL [facility] Urinalysis macro (dipstick) panel (U)on 10-17-2024 Bilirubin, UA Negative Negative - 4(70) +++ mg/dL [facility] Blood, UA Negative Negative - 50 Eulogio/mcL [facility] Healthcare Clarity, UA Clear [facility] Color, UA Yellow [facility] Glucose, UA Negative Negative - 1999(110) ++++ mg/dL [facility] Interpretation and review of laboratory results Normal [facility] Ketones, UA Negative Negative - 160(16) ++++ mg/dL [facility] Leukocytes, UA Negative Negative - 500+++ Rufina/mcL [facility] Nitrite, UA Negative Negative - Positive [facility] pH, UA 7 5 - 9 [facility] Protein, UA Negative Negative - 2000(20) ++++ mg/dL [facility] Spec Grav, UA 1.02 1 - 1.03 [facility] Urobilinogen, UA 0.2 0.2 - 12 mg/dL [facility] Ambulatory Visit Summaryon 0 10-07-2024 [...] [facility] [address] , [place] [id number] Medications What How Much When Instructions Unchanged [...] care provider who specializes in women's health (size painter). How is this treated? Treatment for this condition depends on the cause of the condition and your symptoms. Treatment may include: ??? Lubricants, ointments, and creams. ??? Physical therapy. ??? Massage therapy. ??? Hormonal therapy. ??? Medicines to: ? Prevent or fight infection. ? Relieve pain. ? Help numb the area. ? Treat de (more content not included)... Normal [facility] Urology Office/Clinic Noteon 10-07-2024 Urology Office/Clinic Note [...] [facility] [address] , [place] [phone] Additional Instructions: Patient Education Dyspareunia, Female IChichi, personally scribed for Dr. Richard on 10/07/2024 08:53:24. . Documentation recorded by the Chichi deal, accurately reflects the services(s) I performed and [...] Seizure: Sister. Immunizations Vaccine Date Status SARSCoV2 mRNA(dkjwrrihw-pvfq-r ucros) vac 06/03/2021 Recorded SARS-CoV-2 (COVID-19) mRNA [...] (more content not included)... Normal [facility] Comment on above: Result Comment: Elec tronically Signed By: Darin RICHARD MD\.br\Date and Time Signed: 10/07/24 08:55 EDT\.br\Electronically Co-Signed By: Chichi Bautista.br\Date and Time Co-Signed: 10/07/24 08:53 EDT GLUCOSE 1 HOURon 09-18-2024 Glucose [Mass/Vol] 104 mg/dL NINF - 13 0 mg/dL [facility] Urinalysis macro (dipstick) panel (U)on 09-17-2024 Bilirubin, UA Negative Negative - 4(70) +++ mg/dL [facility] Blood, UA Negative Negative - 50 Eulogio/mcL [facility] Clarity, UA Clear [facility] Color, UA Yellow [facility] Glucose, UA Negative Negative - 1999(110) ++++ mg/dL [facility] Interpretation and review of laboratory results Abnormal [facility] Ketones, UA Positive Negative - 160(16) ++++ mg/dL [facility] Comment on above: 40mg/dL Leukocytes, UA Negative Negative - 500+++ Rufian/mcL [facility] Nitrite, UA Negative Negative - Positive [facility] pH, UA 6 5 - 9 [facility] Protein, UA Negative Negative - 1999(20) ++++ mg/dL [facility] Spec Grav, UA 1.015 1 - 1.03 [facility] Health care Urobilinogen, UA 0.2 0.2 - 12 mg/dL [facility] e Urinalysis macro (dipstick) panel (U)on 08-20-2024 Bilirubin, UA Positive Negative - (70) +++ mg/dL [facility] Comment on above: small Blood, UA Negative Negative - 50 Eulogio/mcL [facility] Clarity, UA Clear [facility] Color, UA Yellow [facility] Glucose, UA Negative Negative - 1999(110) ++++ mg/dL [facility] Interpretation and review of laboratory results Abnormal [facility] Ketones, UA Positive Negative - 160(16) ++++ mg/dL [facility] Comment on above: 15mg/dL Leukocytes, UA Positive Negative - 500+++ Rufina/mcL [facility] Healthcare Comment on above: small Nitrite, UA Negative Negative - Positive [facility] Healthcare pH, UA 7.5 5 - 9 [facility] Protein, UA Positive Negative - 1999(20) ++++ mg/dL [facility] Healthcare Comment on above: 100mg/dL Spec Grav, UA 1.015 1 - 1.03 [facility] Health care Urobilinogen, UA 1.0 0.2 - 12 mg/dL [facility] Healthcare [facility] Ambulatory Visit Summaryon 0 08-05-2024 Ambulatory Visit Summary Ambulatory Visit Summary HESHAM AVALOS :2000 Visit Date:08/05/2024 Ambulatory Visit Instructions Your Diagnosis Urethral cyst Your Care Team Attending Physician - TINO MACK, Darin Cummins Primary Care Physician - ANDREA MACK, JIM F Referring Physician - Don HIDALGO DO This [...] cystoscopy Where: [facility] [address], [facility] [place] [address] [phone] Medications What How Much When Instructions Unchanged [...] including vitamins, herbs, eye drops, creams, and rnrf-ztn-xcbiprq medicines. ??? Any problems you or family [...] tells you to take them. ??? Taking gqrn-nol-ufhiktg medicines, vitamins, herbs, and supplements. Tests You [...] (more content not included)... Normal [facility] Urology Office/Clinic Noteon 08-05-2024 Urology [...] Urology [address], [place] [address]- [phone] Additional Instructions: schedule cystoscopy Patient Education Cystoscopy [...] Hypertension: Grandparent. Seizure: Sister. Normal [facility] Comment on above: Result Comment: Elec tronically Signed By: TINO MACK, Darin Cummins\.br\Date and Time Signed: 08/05/24 13:46 EDT\.br\Electronically Co-Signed By: Chichi Bautista\nataliia\Date and Time Co-Signed: 08/05/24 13:44 EDT RECURRENT VAGINITIS (HTRX)on 07-24-2024 ATOPOBIUM VAGINAE 0 [facility] ATOPOBIUM VAGINAE Not detected [facility] Healthcare BVAB 2,3 (BACTERIAL VAGINOSIS ASSOCIATED BACTERIA 2, 3); MOBILUNCUS SPP 0 [facility] Healthcare BVAB 2,3 (BACTERIAL VAGINOSIS ASSOCIATED BACTERIA 2, 3); MOBILUNCUS SPP Not detected [facility] LIU ALBICANS, PARAPSILOSIS, TROPICALIS 0 [facility] Healthcare LIU ALBICANS, PARAPSILOSIS, TROPICALIS Not detected [facility] Healthcare LIU GLABRATA 0 [facility] LIU GLABRATA Not [facility] Not [facility] CHLAMYDIA TRACHOMATIS 0 [facility] CHLAMYDIA TRACHOMATIS Not detected [facility] Healthcare GARDNERELLA VAGINALIS 0 [facility] GARDNERELLA VAGINALIS Not detected [facility] MEGASPHAERA (TYPES 1, 2) 0 [facility] MEGASPHAERA (TYPES 1, 2) Not detected [facility] MYCOPLASMA GENITALIUM 0 [facility] MYCOPLASMA GENITALIUM Not detected [facility] NEISSERIA GONORRHOEAE 0 [facility] NEISSERIA GONORRHOEAE Not detected [facility] TRICHOMONAS VAGINALIS 0 [facility] TRICHOMONAS VAGINALIS Not detected [facility] Urinalysis macro (dipstick) panel (U)on 07-23-2024 Bilirubin, UA Negative Negative - 4(70) +++ mg/dL [facility] Blood, UA Negative Negative - 50 Eulogio/mcL [facility] Clarity, UA Clear formerly [facility] re Color, UA Yellow [facility] Glucose, UA Negative Negative - 1999(110) ++++ mg/dL [facility] Interpretation and review of laboratory results Abnormal [facility] Ketones, UA Positive Negative - 160(16) ++++ mg/dL [facility] Comment on above: trace Leukocytes, UA Negative Negative - 500+++ Rufina/mcL [facility] Nitrite, UA Negative Negative - Positive [facility] pH, UA 6.5 5 - 9 [facility] Protein, UA Trace Negative - 1999(20) ++++ mg/dL [facility] Spec Grav, UA 1.03 1 - 1.03 [facility] Urobilinogen, UA 0.2 0.2 - 12 mg/dL [facility] Free Cell DNAOrdered B y: Pao Fu on 07-16-[address] [facility] BOX TESTon 07-08-2024 [address] OUT [facility] BOX1 [facility] 07/08/24 [facility] [place] [facility] Drug Screen, Urineon 025 Amphetamine/Methamph etamine Negative [facility] Barbiturates Negative [facility] Benzodiazepines Negative [facility] Cocaine Metabolite Negative [facility] Methadone Negative [facility] Opiates Negative [facility] Oxycodone Negative [facility] Phencyclidine Negative [facility] Thc Marijuana, Urine Negative [facility] HIV 1&2 AB/AG Screen (P24 AG )on 07-08-2024 HIV 1&2 AB/AG Non-Reactive [facility] Hepatitis B surface antigeno n 07-08-2024 Hepatitis B Surface Antigen Negative [facility] Hepatitis C(HCV) Ab w/ Refle x to PCRon 07-08-2024 HCV Ab Ql (S) Non-Reactive [facility] No Panel Informationon 07-08 [facility] Rubella IGG immune statuson 07-08-2024 Rubella immune IgG IMMUNE [facility] Syphilis Total(Unknown Syphi lis Status)on 07-08-2024 Syphilis Non-Reactive [facility] Type and screenon 07-08-2024 Abo/Rh(D) Positive [facility] US OB TRANSVAGINALon 025 US OB TRANSVAGINAL [...] II, MD, PHD at 05-Jul-2024 08:37:00 PM [facility] Normal Not Available Comment on above: Order Comment: US OB TRANSVAGINAL No LMP recorded. Cytology Cervical or vaginal smear or scraping studyon 11-21-2023 [facility] PAP ACOG PANEL 2: 21 to 29on 03-04-2022 . . Normal [facility] Comment on above: Performed By: #### [id number] #### [facility] [address] [place] [address] Dr. Anthony Newton Age Gdln ACOG Testing - [facility] Comment on above: Performed By: #### [id number] #### [facility] [address] [place] [address] Dr. Anthony Newton DIAGNOSIS: Comment [facility] Comment on above: Result Comment: NEGA TIVE FOR INTRAEPITHELIAL LESION OR MALIGNANCY. THIS SPECIMEN WAS RESCREENED PART OF OUR CUSTOMER EXPERIENCE INTERN PROGRAM. Performed By: #### [id number] #### [facility] [address] [place] [address] Dr. Anthony Newton Methodology: Comment [facility] Comment on above: Result Comment: This liquid based ThinPrep(R) pap test was screened with the use of an image guided system. Performed By: #### [id number] #### [facility] [address] [place] [address] Dr. Anthony Newton Note: Comment Normal [facility] Comment on above: Result Comment: The Pap smear is a screening test designed to aid in the detection of premalignant and malignant conditions of the uterine cervix. It is not a diagnostic procedure and should not be used as the sole means of detecting cervical cancer. Both false-positive and false-negative reports do occur. . Performed By: #### [id number] #### [facility] [address] [place] [address] Dr. Anthony Newton Performed by: Comment Normal [facility] Comment on above: Result Comment: Lana Connell, Printing Machine Operator Tape Rules Performed By: #### [id number] #### [facility] [address] [place] [address] Dr. Anthony Newton QC reviewed by: Comment Normal [facility] Comment on above: Result Comment: Shae Maria, Printing Machine Operator Tape Rules (ASCP) Performed By: #### [id number] #### [facility] [address] [place] [address] Dr. Anthony Newton Reflex Criteria: Comment Normal [facility] Comment on above: Result Comment: The HPV DNA reflex criteria were not met with this specimen result therefore, no HPV testing was performed. . Performed By: #### [id number] #### [facility] [address] [place] [address] Dr. Anthony Newton Specimen adequacy: Comment Normal [facility] Comment on above: Result Comment: Sati sfactory for evaluation. Endocervical and/or squamous metaplastic cells (endocervical component) are present. Performed By: #### [id number] #### [facility] [address] [place] [address] Dr. Anthony Newton Lab - Toxicology Resultson 0 10-05-2018 Lab - Toxicology Results [id number]. 00OTGTIFF [facility] Outside Recordson 10-04-2018 Outside Records [id number]. [id number] [facility] Triage Industrialon 10-05-19 19 Drug Screen Complete Collected Normal [place] Comment on above: Performed By: #### 1 [id number] #### [facility] (DEFAULT) [address] [place] [id number] ED Clinical Summaryon 2018 ED Clinical Summary [facility] ? Urgent Care [address] [place] [address] Clinical Summary PERSON INFORMATION Name: HESHAM NEELY Age: 18 Years Sex: FEMALE : 00 MRN: Acct#: Visit Reason: Medical screening exam; PHYSICAL PRE EMPLOYMENT/ [employer] Arrival: 10/03/18 16:20:33 Discharge: 10/03/18 16:50:00 LOS: 000 00:30 Check In: 10/03/18 16:20:33 Checkout: 10/03/18 16:50:00 Address: [address] [place] [id number] PCP: PROVIDER INFORMATION Provider Role Assigned Unassigned Holden Gaitan PA-C ED PA 10/03/18 16:37:26 Sage RN, aLrry ED Nurse 10/03/18 16:38:28 VITALS INFORMATION Vital [...] Instructions: Follow-Up: DIAGNOSIS: Patient Understands: Comment: Normal [facility] ED Patient Summaryon 019 ED Patient Summary [facility] ? Urgent Care [address] [place] [id number] PATIENT DISCHARGE INSTRUCTIONS Patient Information Name: HESHAM NEELY Age: 18 Years Date of : 00 Reason For Visit: Medical screening exam; PHYSICAL PRE EMPLOYMENT/ [employer] Arrival Time: 10/03/18 16:20:33 Primary Care Physician: Attending Physician: Paulino Padilla Comment: Patient Education Medication Information: The exam and treatment you received today in the [facility] Emergency Department were for an urgent problem and are not intended as complete care. It is important for you to follow up with a doctor, nurse practitioner, or physician?s executive personal assistant for ongoing care. If your symptoms [...] so we can reach you if necessary. [facility] Emergency Department has provided you with a complete list of medications post discharge. Please inform your er nurse/provider of your visit and for further instruction on these medications. Any specific questions regarding your chronic medications and dosages should be discussed with your primary care physician(s) and/or pharmacist. Visit Information Visit Diagnosis: Diagnoses This Visit Medical screening exam ([id number]) If you received any narcotics, sedation, or [...] sign any legal documents Reason for Visit: [place] physical Allergies: Substance Reaction Symptoms Type Comments [...] for Disease Control and Prevention December 2013 [facility] Vital Signs Date Time Vital Sign Value Performing Clinician Sole rodriguez 01-29-2025 15:25-0400 Body mass index (BMI) [Ratio] 39.67 kg/m2 Kathie COCHRAN Work Phone: [facility] 01-29-2025 15:25-0400 Body weight 104.83 kg Kathie COCHRAN Work Phone: [facility] 01-29-2025 15:25-0400 Diastolic blood pressure 82 mm[Hg] Kathie COCHRAN Work Phone: [facility] 01-29-2025 15:25-0400 Systolic blood pressure 138 mm[Hg] Kathie Roman PA Work Phone: [facility] 01-23-2025 10:22-0400 Body mass index (BMI) [Ratio] 39.82 kg/m2 Brintey Smith AUXILIARY POWERPLANT OPERATOR Work Phone: [facility] 01-23-2025 10:22-0400 Body weight 105.23 kg Britney Smith AUXILIARY POWERPLANT OPERATOR Work Phone: [facility] 01-23-2025 10:22-0400 Diastolic blood pressure 72 mm[Hg] Britney Smith AUXILIARY POWERPLANT OPERATOR Work Phone: [facility] 01-23-2025 10:22-0400 Systolic blood pressure 124 mm[Hg] Britney Smith AUXILIARY POWERPLANT OPERATOR Work Phone: [facility] 01-14-2025 09:32-0400 Body mass index (BMI) [Ratio] 39.48 kg/m2 Britney Smith AUXILIARY POWERPLANT OPERATOR Work Phone: [facility] 01-14-2025 09:32-0400 Body weight 104.33 kg Britney Smith AUXILIARY POWERPLANT OPERATOR Work Phone: [facility] 01-14-2025 09:32-0400 Diastolic blood pressure 68 mm[Hg] Britney Smith AUXILIARY POWERPLANT OPERATOR Work Phone: [facility] 01-14-2025 09:32-0400 Systolic blood pressure 122 mm[Hg] Britney Smith AUXILIARY POWERPLANT OPERATOR Work Phone: [facility] 01-06-2025 10:44-0400 Body mass index (BMI) [Ratio] 39.16 kg/m2 Kathie Roman PA Work Phone: [facility] 01-06-2025 10:44-0400 Body weight 103.48 kg Kathie Roman PA Work Phone: [facility] 01-06-2025 10:44-0400 Diastolic blood pressure 66 mm[Hg] Kathie Jesus PA Work Phone: [facility] 01-06-2025 10:44-0400 Systolic blood pressure 122 mm[Hg] Kathie Jesus PA Work Phone: [facility] 12-24-2024 10:07-0400 Body mass index (BMI) [Ratio] 39.31 kg/m2 Don Rocky DO Work Phone: [facility] 12-24-2024 10:07-0400 Body weight 103.87 kg Don Rocky DO Work Phone: [facility] 12-24-2024 10:07-0400 Diastolic blood pressure 70 mm[Hg] Don Rocky DO Work Phone: [facility] 12-24-2024 10:07-0400 Systolic blood pressure 124 mm[Hg] Don Rocky DO Work Phone: [facility] 12-12-2024 10:28-0400 Body mass index (BMI) [Ratio] 38.96 kg/m2 Kathie [place] PA Work Phone: [facility] 12-12-2024 10:28-0400 Body weight 102.97 kg Kathie Jesus PA Work Phone: [facility] 12-12-2024 10:28-0400 Diastolic blood pressure 70 mm[Hg] Kathie Jesus PA Work Phone: [facility] 12-12-2024 10:28-0400 Systolic blood pressure 130 mm[Hg] Kathie Jesus PA Work Phone: [facility] 11-28-2024 08:48-0400 Body mass index (BMI) [Ratio] 38.62 kg/m2 Don Rocky DO Work Phone: [facility] 11-28-2024 08:48-0400 Body weight 102.06 kg Don Rocky DO Work Phone: [facility] 11-28-2024 08:48-0400 Diastolic blood pressure 74 mm[Hg] Don Rocky DO Work Phone: [facility] 11-28-2024 08:48-0400 Systolic blood pressure 118 mm[Hg] Don Rocky DO Work Phone: [facility] 11-14-2024 11:22-0400 Body mass index (BMI) [Ratio] 38.88 kg/m2 Kathie Jesus PA Work Phone: [facility] 11-14-2024 11:22-0400 Body weight 102.74 kg Kathie [place] PA Work Phone: [facility] 11-14-2024 11:22-0400 Diastolic blood pressure 64 mm[Hg] Kathie Jesus PA Work Phone: [facility] 11-14-2024 11:22-0400 Systolic blood pressure 122 mm[Hg] Kathie Jesus PA Work Phone: [facility] 10-17-2024 08:10-0400 Body mass index (BMI) [Ratio] 38.66 kg/m2 Don Rocky DO Work Phone: [facility] 10-17-2024 08:10-0400 Body weight 102.17 kg Don Rocky DO Work Phone: [facility] 10-17-2024 08:10-0400 Diastolic blood pressure 58 mm[Hg] Don Rocky DO Work Phone: [facility] 10-17-2024 08:10-0400 Systolic blood pressure 114 mm[Hg] Don Rocky DO Work Phone: [facility] 09-23-2024 11:59-0400 Body height 162.6 cm Cintia Allen MD Work Phone: [facility] 09-23-2024 11:59-0400 Body mass index (BMI) [Ratio] 38.04 kg/m2 Cintia Allen MD Work Phone: [facility] 09-23-2024 11:59-0400 Body weight 100.52 kg Cintia Allen MD Work Phone: [facility] 09-23-2024 11:59-0400 Diastolic blood pressure 75 mm[Hg] Cintia Allen MD Work Phone: [facility] 09-23-2024 11:59-0400 Heart rate 90 /min Cintia Allen MD Work Phone: [facility] 09-23-2024 11:59-0400 Systolic blood pressure 119 mm[Hg] Cintia Allen MD Work Phone: [facility] 09-17-2024 13:49-0400 Body mass index (BMI) [Ratio] 38.28 kg/m2 Kathie COCHRAN Work Phone: [facility] 09-17-2024 13:49-0400 Body weight 101.15 kg Kathie COCHRAN Work Phone: [facility] 09-17-2024 13:49-0400 Diastolic blood pressure 78 mm[Hg] aKthie COCHRAN Work Phone: [facility] 09-17-2024 13:49-0400 Systolic blood pressure 124 mm[Hg] Kathie COCHRAN Work Phone: [facility] 08-20-2024 10:54-0400 Body mass index (BMI) [Ratio] 37.59 kg/m2 Don Rocky DO Work Phone: [facility] 08-20-2024 10:54-0400 Body weight 99.34 kg Don Rocky DO Work Phone: [facility] 08-20-2024 10:54-0400 Diastolic blood pressure 84 mm[Hg] Don Rocky DO Work Phone: [facility] 08-20-2024 10:54-0400 Systolic blood pressure 126 mm[Hg] Don Rocky DO Work Phone: [facility] 07-23-2024 12:54-0400 Body mass index (BMI) [Ratio] 38.28 kg/m2 Don Rocky DO Work Phone: [facility] 07-23-2024 12:54-0400 Body weight 101.15 kg Don Rocky DO Work Phone: [facility] 07-23-2024 12:54-0400 Diastolic blood pressure 80 mm[Hg] Don Rocky DO Work Phone: [facility] 07-23-2024 12:54-0400 Systolic blood pressure 120 mm[Hg] Don Rocky DO Work Phone: [facility] 05-24-2023 14:05-0500 Body height 162.6 cm Stephanie Sotelo AUXILIARY POWERPLANT OPERATOR Work Phone: [facility] 05-24-2023 14:05-0500 Body mass index (BMI) [Ratio] 34.57 kg/m2 Stephanie Sotelo AUXILIARY POWERPLANT OPERATOR Work Phone: [facility] 05-24-2023 14:05-0500 Body weight 91.35 kg Stephanie Sotelo AUXILIARY POWERPLANT OPERATOR Work Phone: [facility] 05-24-2023 14:05-0500 Diastolic blood pressure 74 mm[Hg] Stephanie Blancopatrick AUXILIARY POWERPLANT OPERATOR Work Phone: [facility] 05-24-2023 14:05-0500 Heart rate 63 /min Stephanie Blancopatrick AUXILIARY POWERPLANT OPERATOR Work Phone: [facility] 05-24-2023 14:05-0500 Respiratory rate 20 /min Stephanie Blancopatrick AUXILIARY POWERPLANT OPERATOR Work Phone: [facility] 05-24-2023 14:05-0500 SaO2% (BldA) [Mass fraction] 96 % Stephanie Blancopatrick AUXILIARY POWERPLANT OPERATOR Work Phone: [facility] 05-24-2023 14:05-0500 Systolic blood pressure 138 mm[Hg] Stephanie Blancopatrick AUXILIARY POWERPLANT OPERATOR Work Phone: [facility] 04-12-2023 15:05-0500 Body height 162.6 cm Daniella Reina MD Work Phone: [facility] 04-12-2023 15:05-0500 Body mass index (BMI) [Ratio] 37.93 kg/m2 Daniella Reina MD Work Phone: [facility] 04-12-2023 15:05-0500 Body weight 100.25 kg Daniella Reina MD Work Phone: [facility] 04-12-2023 15:05-0500 Diastolic blood pressure 76 mm[Hg] Daniella Reina MD Work Phone: [facility] 04-12-2023 15:05-0500 Heart rate 96 /min Daniella Reina MD Work Phone: [facility] 04-12-2023 15:05-0500 Systolic blood pressure 115 mm[Hg] Daniella Reina MD Work Phone: [facility] Encounters Encounter Date Encounter Type Care Provider Facility Start: 01-29-2025 End: 01-29-2025 ambulatory KATHIE ROMAN Not Available Start: 01-29-2025 End: 01-29-2025 Bamboo flowsheet Kathie [place] PA Work Phone: [facility] Start: 01-29-2025 End: 01-29-2025 Bamboo flowsheet Kathie COCHRAN Work Phone: [facility] Start: 01-29-2025 End: 01-29-2025 flow sheet Kathie COCHRAN Work Phone: [facility] Comment on above: Third trimester preg bria ([facility] 38 weeks gestation of ([facility]) Start: 01-25-2025 End: 01-25-2025 Clinisync Result Encounter Generic External Data Provider [facility] Unsolicited Start: 01-25-2025 End: 01-25-2025 Clinisync Result Encounter Generic External Data Provider [facility] Unsolicited Start: 01-23-2025 End: 01-23-2025 Bamboo flowsheet Britney Pimentelly AUXILIARY POWERPLANT OPERATOR Work Phone: [facility] Start: 01-23-2025 End: 01-23-2025 Bamboo flowsheet Britney Luis AUXILIARY POWERPLANT OPERATOR Work Phone: [facility] Start: 01-23-2025 End: 01-23-2025 flow sheet Britney Luis AUXILIARY POWERPLANT OPERATOR Work Phone: [facility] Comment on above: Third trimester preg bria ([facility]); 37 weeks gestation of ([facility]) Start: 01-23-2025 End: 01-23-2025 ambulatory BRITNEY LUIS Not Available Start: 01-18-2025 End: 01-18-2025 Clinisync Result Encounter Britney Luis AUXILIARY POWERPLANT OPERATOR Work Phone: [facility] Unsolicited Start: 01-18-2025 End: 01-18-2025 Clinisync Result Encounter Britney Luis AUXILIARY POWERPLANT OPERATOR Work Phone: [facility] Unsolicited Start: 01-14-2025 End: 01-19-2025 Clinisync Result Encounter Generic External Data Provider [facility] External [facility] Unsolicited Start: 01-14-2025 End: 01-19-2025 Clinisync Result Encounter Generic External Data Provider [facility] External Department Unsolicited Start: 01-14-2025 End: 01-14-2025 flow sheet Britney Smith AUXILIARY POWERPLANT OPERATOR Work Phone: [facility] Comment on above: Third trimester preg bria ([facility]); 36 weeks gestation of ([facility]); History of placental abnormality; Excessive growth affecting management of , antepartum, single or unspecified fetus ([facility]) Start: 01-14-2025 End: 01-14-2025 ambulatory BRITNEY SMITH Not Available Start: 01-06-2025 End: 01-06-2025 Bamboo flowsheet Kathie COCHRAN Work Phone: [facility] Start: 01-06-2025 End: 01-06-2025 Bamboo flowsheet Kathie COCHRAN Work Phone: [facility] Start: 01-06-2025 End: 01-06-2025 flow sheet Kathie COCHRAN Work Phone: [facility] Comment on above: Third trimester preg bria ([facility]); 35 weeks gestation of ([facility]) Start: 01-06-2025 End: 01-06-2025 ambulatory KATHIE ROMAN Not Available Start: 12-24-2024 End: 12-24-2024 Bamboo flowsheet Don Rocky DO Work Phone: [facility] Start: 12-24-2024 End: 12-24-2024 Bamboo flowsheet Don Rocky DO Work Phone: [facility] Start: 12-24-2024 End: 12-24-2024 flow sheet Don Rocky DO Work Phone: [facility] Comment on above: Third trimester preg bria ([facility]); 33 weeks gestation of ([facility]); History of placental abnormality; Excessive growth affecting management of , antepartum, single or unspecified fetus ([facility]) Start: 12-24-2024 End: 12-24-2024 ambulatory DON ROCKY Not Available Start: 12-14-2024 End: 12-14-2024 Clinisync Result Encounter Generic External Data Provider [facility] External Department Unsolicited Start: 12-14-2024 End: 12-14-2024 Clinisync Result Encounter Generic External Data Provider [facility] External [facility] Unsolicited Start: 12-12-2024 End: 12-12-2024 Bamboo flowsheet Kathie COCHRAN Work Phone: [facility] Start: 12-12-2024 End: 12-12-2024 Bamboo flowsheet Kathie COCHRAN Work Phone: [facility] Start: 12-12-2024 End: 12-12-2024 flow sheet Kathie COCHRAN Work Phone: [facility] Comment on above: Third trimester preg bria ([facility]); 31 weeks gestation of ([facility]) Start: 12-12-2024 End: 12-12-2024 ambulatory KATHIE ROMAN Not Available Start: 11-28-2024 End: 11-28-2024 Bamboo flowsheet Don Rocky DO Work Phone: [facility] Start: 11-28-2024 End: 11-28-2024 Bamboo flowsheet Don Rocyk DO Work Phone: [facility] Start: 11-28-2024 End: 11-28-2024 flow sheet Don Rocky DO Work Phone: [facility] Comment on above: Third trimester preg bria ([facility]); 29 weeks gestation of ([facility]); History of placental abnormality; Excessive growth affecting management of in third trimester, single or unspecified fetus ([facility]) Start: 11-28-2024 End: 11-28-2024 ambulatory [...] flow sheet Kathie COCHRAN Work Phone: [facility] Comment on above: Second trimester pre gnancy ([facility]); 27 weeks gestation of ([facility]) Start: 11-14-2024 End: 11-14-2024 ambulatory KATHIE ROMAN Not Available Start: 10-24-2024 End: 10-24-2024 ambulatory DON R ROCKY [facility] Start: 10-17-2024 End: 10-17-2024 Bamboo flowsheet Don Rocky DO Work Phone: [facility] Start: 10-17-2024 End: 10-17-2024 Bamboo flowsheet Don Rocky DO Work Phone: [facility] Start: 10-17-2024 End: 10-17-2024 flow sheet Don Rocky DO Work Phone: [facility] Comment on above: Second trimester pre gnancy ([facility]); 23 weeks gestation of ([facility]); Diabetes mellitus screening Start: 10-17-2024 End: 10-17-2024 ambulatory DON ROCKY Not Available Start: 10-07-2024 End: 10-07-2024 ambulatory Darin RICHARD Facility:[facility] Start: 10-07-2024 End: 10-07-2024 Patient encounter procedure Darin RICHARD [facility] Start: 09-23-2024 End: 09-23-2024 Office consultation new/estab patient 40 min Cintia Allen MD Work Phone: [facility]aternal- Medicine at [facility] Comment on above: Obesity affecting pr egnancy in second trimester, unspecified obesity type (Primary Dx) Start: 09-23-2024 End: 09-23-2024 Orders Only Sherrill Hernandez [facility]- Medicine at [facility] Comment on above: Polyhydramnios affec ting (Primary Dx); Low-lying placenta; Placenta previa in second trimester; Velamentous insertion of umbilical cord in second trimester; Vasa previa, single or unspecified fetus; History of hemorrhage, currently in second trimester Start: 09-18-2024 End: 09-18-2024 Clinisync Result Encounter Don Rocky DO Work Phone: [facility] External Department Unsolicited Start: 09-18-2024 End: [...] Start: 08-05-2024 End: 08-05-2024 ambulatory Darin RICHARD Facility:[facility] Start: 08-02-2024 End: 08-02-2024 Chart abstracting Cintia Allen MD Work Phone: [facility]- Medicine at [facility] Start: 07-25-2024 ambulatory Facility:[facility] [place] Start: 07-23-2024 End: 07-24-2024 External Result Encounter [...] Not Available Start: 05-24-2023 Bamboo flowsheet Stephanie Villagran Dio damonpatrick AUXILIARY POWERPLANT OPERATOR Work Phone: [facility] Start: 05-24-2023 Bamboo flowsheet Stephanie Villagran Dio damonpatrick AUXILIARY POWERPLANT OPERATOR Work Phone: [facility] Start: 05-24-2023 End: 05-24-2023 Patient encounter status Stephanie A Ashleigh AUXILIARY POWERPLANT OPERATOR Work Phone: [facility] Work Phone: Start: 05-24-2023 End: 05-24-2023 Periodic preventive med est patient 18-39 yrs Stephanie Villagran Ashleigh AUXILIARY POWERPLANT OPERATOR Work Phone: [facility] Comment on above: Encounter for wellne ss examination (Primary Dx); Anemia, unspecified type Start: 04-12-2023 End: 04-12-2023 Office outpatient visit 25 minutes Daniella Reina MD Work Phone: [facility] [place] Comment on above: 35 weeks gestation o f (Primary Dx); Polyhydramnios affecting Start: 02-24-2022 End: 02-24-[address] DON HIDALGO Facility: Procedures Date Procedure Procedure Detail Performing Clinician Start: 01-29-2025 Urnls dip stick/tabl et rgnt non-auto w/o micrscp Kathie COCHRAN Work Phone: Start: 01-25-2025 OB BPP W NON-STRESS Generic External Data Provider Start: 01-23-2025 Urnls dip stick/tabl et rgnt non-auto w/o micrscp Britney Smith AUXILIARY POWERPLANT OPERATOR Work Phone: Start: 01-18-2025 OB BPP W NON-STRESS Britney Smith AUXILIARY POWERPLANT OPERATOR Work Phone: Start: 01-14-2025 Urnls dip stick/tabl et rgnt non-auto w/o micrscp Brtiney Smith AUXILIARY POWERPLANT OPERATOR Work Phone: Start: 01-14-2025 STREP GP B [...] DTaP,Tdap and Td Vaccines (6 - Tdap) [facility] Start: 11-09-2025 Screening for malign ant neoplasm of cervix Pap Smear [facility] Start: 09-23-2025 Adult BMI Screening Adult BMI Screen ing [facility] Start: 09-23-2025 Tobacco Screening Tobacco Screening [facility] Start: 09-23-2025 End: 09-23-2025 US MFM with [...] above: Expected: 09/23/2025 (Approximate), Expires: 09/23/2025 Start: 02-05-2025 End: 02-05-2025 Patient encounter procedure 02/05/2025 2:20 PM EDT Routine [facility] [address] [place] [phone] Kathie Roman, PA [address] [place], [place] [id number] [facility] Start: 01-29-2025 End: 01-29-2025 Patient encounter procedure 01/29/2025 1:50 PM EDT Routine [facility] [address] [place] [phone] Kathie Roman, PA [address] [place] [address] [facility] Start: 01-23-2025 End: 01-23-2025 Patient encounter procedure [facility] Comment on above: Arrived Start: 01-14-2025 End: 01-14-2026 CULTURE, GROUP B STREP WITH SUSCEPTIBLITY CULTURE, GROUP B STREP WITH SUSCEPTIBLITY Lab Routine Third trimester ([facility]) Expected: 01/14/2025 (Approximate), Expires: 01/14/2026 [facility] Work Phone: Comment on above: Expected: 01/14/2025 (Approximate), Expires: 01/14/2026 Start: 01-14-2025 End: 07-14-2025 US biophysical profile w non stress test US biophysical profile w non stress test Imaging Routine Third trimester ([facility]) 36 weeks gestation of ([facility]) History of placental abnormality Excessive growth affecting management of , antepartum, single or unspecified fetus ([facility]) Expected: 01/14/2025 (Approximate), Expires: 07/14/2025 [facility] Comment on above: Expected: 01/14/2025 (Approximate), Expires: 07/14/2025 Start: 01-14-2025 End: 01-14-2025 Patient encounter procedure 01/14/2025 9:20 AM EDT Routine [facility] [address] [place] [address] Britney Smith, AUXILIARY POWERPLANT OPERATOR [address] [place] [address] [facility] Start: 01-14-2025 End: 01-14-2025 Professional / ancillary services management 01/14/2025 9:00 AM EDT Ancillary Procedure [facility] [address] [place] [address] [facility] Start: 01-06-2025 End: 01-06-2025 Patient encounter procedure [facility] Comment on above: Arrived Start: 12-24-2024 End: 04-25-2025 US for US OB follow up transabdominal approach Imaging Routine Excessive growth affecting management of , antepartum, single or unspecified fetus ([facility]) Expected: 12/24/2024, Expires: 04/25/2025 [facility] Work Phone: Comment on above: Expected: 12/24/2024 , Expires: 04/25/2025 Start: 12-24-2024 End: 12-24-2024 Patient encounter procedure [facility] Comment on above: Arrived Start: 12-16-2024 Influenza vaccination [facility] Start: 12-12-2024 End: 12-12-2024 Patient encounter procedure 12/12/2024 10:10 AM EDT Routine [facility] [place] [facility] [address] [place] [phone] Kathie Roman PA [address] [place] [address] Arrived [facility] [place] [facility] Comment on above: Arrived Start: 11-28-2024 End: 03-30-2025 US for US OB follow up transabdominal approach Imaging Routine Third trimester ([facility]) History of placental abnormality Excessive growth affecting management of in third trimester, single or unspecified fetus ([facility]) Expected: 11/28/2024, Expires: 03/30/2025 [facility] Work Phone: Comment on above: Expected: 11/28/2024 , Expires: 03/30/2025 Start: 11-28-2024 End: 11-28-2024 Patient encounter procedure [facility] Comment on above: Arrived Start: 11-26-2024 End: 11-26-2024 Patient encounter procedure 11/26/2024 3:00 PM EDT Office Visit [facility] [address] [place] [phone] oDn Hidalgo DO [address] [place] [address] [facility] Start: 11-14-2024 End: 11-14-2024 Patient encounter procedure [facility] Comment on above: Arrived Start: 10-24-2024 End: 10-24-2024 Patient encounter procedure 10/24/2024 1:00 PM EDT Appointment [facility] [address] [place] [address] [facility] [place] Start: 10-17-2024 End: 10-17-2025 CBC panel - [...] Routine [facility] [address] [place] [phone] Don Hidalgo, DO [address] [place] [address] [facility] Start: 10-17-2024 End: 10-17-2024 Patient encounter procedure 10/17/2024 8:10 AM EDT Routine [facility] [address] [place] [phone] Don Hidalgo, DO [address] [place] [address] Arrived [facility] Comment on above: Arrived Start: 09-23-2024 End: 09-23-2024 Patient encounter procedure [facility] Start: 09-17-2024 End: 09-17-2024 Patient encounter procedure 09/17/2024 1:30 PM EDT Routine [facility] [address] [place] [phone] Kathie Roman PA [address] [place] [address] [facility] Start: 08-20-2024 End: 10-20-2024 Alpha fetoprotein, maternal Alpha fetoprotein, maternal Lab Routine Second trimester 15 weeks gestation of Expected: 08/20/2024 (Approximate), Expires: 10/20/2024 [facility] Work Phone: Comment on above: Expected: 08/20/2024 (Approximate), Expires: 10/20/2024 Start: 08-20-2024 End: 08-20-2025 Measurement of glucose 1 hour after glucose challenge for glucose tolerance test Glucose tolerance, 1 hour Lab Routine Diabetes mellitus screening Expected: 08/20/2024 (Approximate), Expires: 08/20/2025 [facility] Comment on above: Expected: 08/20/2024 (Approximate), Expires: 08/20/2025 Start: 08-20-2024 End: 08-20-2024 Patient encounter procedure 08/20/2024 10:20 AM EDT Routine [facility] [address] [place] [phone] Don Hidalgo, DO [address] [place] [address] [facility] Start: 08-05-2024 End: 08-05-2024 Patient encounter procedure 08/05/2024 2:10 PM EDT Routine [facility] [address] [place] [phone] Don Hidalgo, DO [address] [place] [address] [facility] Start: 04-12-2024 Adult BMI Screening Adult BMI Screen ing [facility] Start: 04-12-2024 Tobacco Screening Tobacco Screening [facility] Start: 12-17-2023 COVID-19 Vaccine ( season) COVID-19 Vaccine ( season) [facility] Start: 12-17-2023 Influenza vaccination Influenza Vacc ine (#1) [facility] Start: 11-10-2023 Screening for Chlamy annabella trachomatis Chlamydia Screening [facility] Start: 10-15-2023 Influenza vaccination Influenza Vacc ine (#1) [facility] Comment on above: Postponed from 12/16 (Patient Refused) Start: 06-07-2023 End: 06-07-2023 ambulatory 06/07/2023 10:30 AM EST Visit [facility] [address] [place] [phone] Kathie Roman PA [address] [place] [address] [facility] Start: 05-24-2023 End: 05-24-2024 CBC W Auto Differential panel - Blood CBC and differential Lab Routine Encounter for wellness examination Anemia, unspecified type Expected: 05/24/2023 (Approximate), Expires: 05/24/2024 [facility] Comment on above: Expected: 05/24/2023 (Approximate), Expires: 05/24/2024 Start: 05-24-2023 End: 05-24-2024 Comprehensive metabolic 2000 panel - Serum or Plasma Comprehensive metabolic panel Lab Routine Encounter for wellness examination Anemia, unspecified type Expected: 05/24/2023 (Approximate), Expires: 05/24/2024 [facility] Work Phone: Comment on above: Expected: 05/24/2023 (Approximate), Expires: 05/24/2024 Start: 12-16-2022 COVID-19 Vaccine ( season) COVID-19 Vaccine ( season) [facility] Start: 12-16-2022 Influenza vaccination [facility] Start: 01-31-2022 Depression Screening Depression Scre [facility] Start: 2018 Adult BMI Follow Up Plan Adult BMI Follow Up Plan [facility] Start: 2012 Depression Screening Depression Scre [facility] CHLAMYDIA TRACHOMATI S (GENITO/STI) CHLAMYDIA TRACHOMATIS (GENITO/STI) Lab Routine Vaginal discharge Ordered: 07/23/2024 [facility] Comment on above: Ordered: 07/23/2024 Neisseria gonorrhoea e DNA [Presence] in Unspecified specimen by BOONE with probe detection Neisseria gonorrhea DNA probe, direct Lab Routine Vaginal discharge Ordered: 07/23/2024 [facility] Comment on above: Ordered: 07/23/2024 SURESWAB(R) ADVANCED VAGINITIS PLUS, TMA SURESWAB(R) ADVANCED VAGINITIS PLUS, TMA Pathology and Cytology Routine Vaginal discharge Ordered: 07/23/2024 [facility] Work Phone: Comment on above: Ordered: 07/23/2024 Immunizations Immunization Date Immunization Notes Care Provider Bronwyn alexander 06-03-2021 SARS-CoV-2 mRNA (nkvaayvljem-kcjf-vavmv se) vaccine Darin RICHARD [facility] 05-13-2021 SARS-CoV-2 (COVID-19 ) mRNA BNT-162b2 vax Darin RICHARD [facility] 02-01-2021 Seasonal, quadrivale nt, recombinant, injectable influenza vaccine, preservative free Stephanie Sotelo NP Work Phone: [facility] 02-01-2021 influenza virus vaccine, unspecified formulation Daniella Reina MD Work Phone: [facility] 12-19-2020 diphtheria, tetanus toxoids and pertussis vaccine Daniella Reina MD Work Phone: [facility] 10-29-2019 hepatitis B vaccine, pediatric or pediatric/adolescent dosage Daniella Reina MD Work Phone: [facility] 05-14-2019 hepatitis B vaccine, adult dosage Daniella Reina MD Work Phone: [facility] 04-11-2019 hepatitis B vaccine, pediatric or pediatric/adolescent dosage Daniella Reina MD Work Phone: [facility] 04-11-2019 measles, mumps, rubella, and varicella virus vaccine Daniella Reina MD Work Phone: [facility] 11-09-2017 meningococcal ACWY vaccine, unspecified formulation Darin RICHARD [facility] 11-09-2017 meningococcal oligosaccharide (groups A, C, Y and W-135) diphtheria toxoid conjugate vaccine (MCV4O) Daniella Reina MD Work Phone: [facility] 12-08-2004 diphtheria, tetanus toxoids and acellular pertussis vaccine Daniella Reina MD Work Phone: [facility] 12-08-2004 measles, mumps and rubella virus vaccine Daniella Reina MD Work Phone: [facility] 12-08-2004 poliovirus vaccine, inactivated Daniella Reina MD Work Phone: [facility] 12-08-2004 poliovirus vaccine, unspecified formulation Darin RICHARD [facility] 09-28-2001 measles, mumps and rubella virus vaccine Daniella Reina MD Work Phone: [facility] 03-23-2001 diphtheria, tetanus toxoids and acellular pertussis vaccine, unspecified formulation Daniella Reina MD Work Phone: [facility] 03-23-2001 DTaP, unspecified formulation Darin RICHARD [facility] 03-23-2001 haemophilus influenz ae type b conjugate and Hepatitis B vaccine Daniella Reina MD Work Phone: [facility] 03-23-2001 poliovirus vaccine, inactivated Daniella Reina MD Work Phone: [facility] 03-23-2001 poliovirus vaccine, unspecified formulation Darin RICHARD [facility] 01-12-2001 diphtheria, tetanus toxoids and acellular pertussis vaccine, unspecified formulation Daniella Reina MD Work Phone: [facility] 01-12-2001 DTaP, unspecified formulation Darin RICHARD [facility] 01-12-2001 haemophilus influenz ae type b vaccine, HbOC conjugate Daniella Reina MD Work Phone: [facility] 01-12-2001 poliovirus vaccine, inactivated Daniella Reina MD Work Phone: [facility] 01-12-2001 poliovirus vaccine, unspecified formulation Darin RICHARD [facility] 2000 diphtheria, tetanus toxoids and acellular pertussis vaccine, unspecified formulation Daniella Reina MD Work Phone: [facility] 2000 DTaP, unspecified formulation Darin RICHARD [facility] 2000 haemophilus influenz ae type b conjugate and Hepatitis B vaccine Daniella Reina MD Work Phone: [facility] 2000 poliovirus vaccine, inactivated Daniella Reina MD Work Phone: [facility] 2000 poliovirus vaccine, unspecified formulation Darin RICHARD [facility] 2000 hepatitis B vaccine, pediatric or pediatric/adolescent dosage Daniella Reina MD Work Phone: [facility] NEGATED: Highlighted row has not occurred!04-11-2019 influenza, injectable, quadrivalent, preservative free Daniella Reina MD Work Phone: [facility] Comment on above: Deferred: Patient de cision Payers Date Payer Category Payer Private Health Insurance [id number] 2022 [facility] [id number] 2022 [employer] - O ANTHEM Member Subscriber Plan / Payer (Effective 2022-Present) Name: Hesham Avalos Relation to Subscriber: Spouse Name: Shailesh Avalos Date of : 2000 Address: [address] [address] Payer ID: [id number] (NAIC) Type: Not on file Address: [address] [place] [id number] 2022 Unknown [id number] 2021 Unknown [id number] 2000 Unknown [id number] 2.840.1.728111.3.579. 2.593 2000 Unknown [id number] 2.16840.1.326140.3.579. 2.727 2000 Unknown [id number] 2.16.840.1.198029.3.579. 2.1286 2000 Unknown [id number] 2.16840.1.095793.3.579. 2.1286 2000 Unknown [id number] 2.16.840.1.538885.3.579. 2.727 2000 Unknown [id number] 2.16.840.1.618761.3.579. 2.727 2000 Unknown [id number] 2.16.840.1.871679.3.579. 2.1286 2000 Unknown [id number] 2.16.840.1.185585.3.579. 2.1258 2000 Unknown [id number] 2.16.840.1.482484.3.579. 2.1258 2000 Unknown [id number] 2.16.840.1.601681.3.579. 2.1258 2000 Unknown [id number] 2.16.840.1.380490.3.579. 2.1258 2000 Unknown [id number] 2.16.840.1.629552.3.579. 2.1258 2000 Unknown [id number] 2.16.840.1.099150.3.579. 2.1258 2000 Unknown [id number] 2.16.840.1.039348.3.579. 2.1258 2000 Unknown [id number] 2.16.840.1.095662.3.579. 2.1258 2000 Unknown [id number] 2.16.840.1.697030.3.579. 2.1258 2000 Unknown [id number] 2.16.840.1.475563.3.579. 2.1258 2000 Unknown [id number] 2.16.840.1.074263.3.579. 2.1258 2000 Unknown [id number] 2.16.840.1.328503.3.579. 2.1258 2000 Unknown [id number] 2.16.840.1.598635.3.579. 2.1258 2000 Unknown [id number] 2.16.840.1.561484.3.579. 2.1258 2000 Unknown [id number] 2.16.840.1.667721.3.579. 2.1259 1959 Unknown [id number] Social History Date Type Detail Facility Start: 11-08-2022 End: 10-07-2024 Tobacco smoking status NHIS Never smoked tobacco [facility] Start: 11-08-2022 End: 04-12-2023 Tobacco use and exposure Smokeless tobacco non-user [facility] Start: 04-12-2023 End: 04-18-2023 Alcohol intake Lifetime non-drinker (finding) [facility] Start: 05-17-2023 End: 05-24-2023 History of Social function [facility] Start: 05-17-2023 End: 05-24-2023 Humiliation, Afraid, Rape, and Kick questionnaire [HARK] [facility] Within the last year , have you been afraid of your partner or ex-partner? No [facility] Are you now , , , , never or living with a partner? [facility] How often to you hav e a drink containing alcohol? 2-4 times a month [facility] How many standard drinks containing alcohol do you have on a typical day? 3 or [address] [facility] How often do you hav e 6 or more drinks on 1 occasion? Less than monthly [facility] Start: 06-29-2022 How hard is it for y ou to pay for the very basics like food, housing, medical care, and heating Not hard at all [facility] Do you feel stress - tense, restless, nervous, or anxious, or unable to sleep at night because your mind is troubled all the time - these days [OSQ] Not at all [facility] (I/We) worried wheth er (my/our) food would run out before (I/we) got money to buy more. Never true [facility] Start: 08-15-2022 [facility] Start: 2000 Sex Assigned At Female [facility] [place] Start: 10-07-2022 Gender identity Identifies as female gender (finding) [facility] Start: 10-07-2022 Sexual orientation Heterosexual (fin ding) [facility] Start: 05-24-2023 End: 01-29-2025 Alcohol intake Ex-drinker (finding) [facility] Are you now , , , , never or living with a partner? Living with partner [facility] How hard is it for y ou to pay for the very basics like food, housing, medical care, and heating Not very hard [facility] Do you feel stress - tense, restless, nervous, or anxious, or unable to sleep at night because your mind is troubled all the time - these days [OSQ] Very much [facility] Start: 01-31-2021 Education 21 [facility] Start: 11-18-2014 Sex Female (finding) [facility] Sexual Orientation [facility] NEGATED: Highlighted rowStart: NINF History of tobacco use Passive smoker [facility] Medical Equipment Procedure Code Equipment Code Equipment Origin al Text Equipment Identifier Dates Check blood suga r 4-5 times daily, fasting and 1 hour after meals. Use as directed. Dispense per insurance preference. [id number] Start: 04-12-2023 1 strip by miscellaneous route in the morning and 1 strip at noon and 1 strip in the evening and 1 strip before bedtime. Check blood sugar 4-5 times daily, fasting and 1 hour after meals. Use as directed. Dispense per insurance preference.. [id number] Start: 04-12-2023 Clinical Notes 04-12-2023 to 01-29-2025 DIMAS Cormier - 01/29/2025 1:50 PM Sarthak Smith NP - 01/23/2025 10:20 AM Sarthak Smith NP - 01/14/2025 9:20 AM DIMAS Florentino - 01/06/2025 10:20 AM EDT Note Date & Type Note Facility 01-29-2025 History of Presen t illness Narrative Reason for Appointment: Patient ID: Hesham Avalos is a 24 y.o. female who presents for Routine Visit Patient presents today for Return OB appointment. MEDICATIONS Current Outpatient Medications Medication Instructions Ferrous Gluconate (IRON 27 PO) 1 each, Daily Vjjnvety-Sqh-Ud-FA (PRE-SIGIFREDO PO) 1 each, Daily ALLERGIES Allergies[1] PROBLEMS Active Ambulatory Problems Diagnosis Date Noted History of placental abnormality 12/24/2024 Resolved Ambulatory Problems Diagnosis Date Noted Obesity affecting in second trimester ([facility]) 01/27/2023 Velamentous insertion of umbilical cord in second trimester ([facility]) 01/27/2023 Past Medical History: Diagnosis Date 6 weeks follow-up ([facility]) HISTORY PAST MEDICAL HISTORY SOCIAL HISTORY Medical [...] 11/21/23: 5' 4 . Weight as of 01/23/25: 232 lb. BP: Patient's last menstrual period was 05/06/2024. ASSESSMENT & PLAN ICD-10-CM 1. Third trimester ([facility]) Z34.93 2. 38 weeks gestation of ([facility]) Z3A.38 POCT urinalysis dipstick manually resulted Return [...] Medical History: Diagnosis Date 6 weeks follow-up ([facility]) [3] Family History Problem Relation Name Age of Onset Hypertension Maternal Grandmother Fior Diabetes Maternal Grandmother Fior Cancer Maternal Grandfather Fior Heart failure Maternal Grandfather Fior Cancer Paternal Grandfather Rajat Seizures Sister Nicole [4] Past Surgical History: Procedure Laterality Date MOUTH SURGERY 2017 MYRINGOTOMY W/ TUBES 2002 documented in this encounter [facility] 01-23-2025 History of Presen t illness Narrative Reason for Appointment: Patient ID: Hesham Avalos is a 24 y.o. female who presents for Routine Visit Patient presents today for Return OB appointment. MEDICATIONS Current Outpatient Medications Medication Instructions Ferrous Gluconate (IRON 27 PO) 1 each, Daily Ltpuqcfl-Tyj-Td-FA (PRE- PO) 1 each, Daily ALLERGIES No Known Allergies PROBLEMS Active Ambulatory Problems Diagnosis Date Noted History of placental abnormality 12/24/2024 Resolved Ambulatory Problems Diagnosis Date Noted Obesity affecting in second trimester ([facility]) 01/27/2023 Velamentous insertion of umbilical cord in second trimester ([facility]) 01/27/2023 Past Medical History: Diagnosis Date 6 weeks follow-up ([facility]) HISTORY PAST MEDICAL HISTORY SOCIAL HISTORY Past Medical History: Diagnosis Date 6 weeks follow-up ([facility]) Social History Tobacco Use Smoking [...] nursing note reviewed. Exam conducted with a gaming surveillance observer present. Vitals: Estimated body mass index is 39.82 kg/m as calculated from the following: Height as of 11/21/23: 5' 4 . Weight as of this encounter: 232 lb. BP: 124/72 Patient's last menstrual period was 05/06/2024. ASSESSMENT & PLAN ICD-10-CM 1. Third trimester ([facility]) Z34.93 POCT urinalysis dipstick manually resulted 2. 37 weeks gestation of ([facility]) Z3A.37 Return OB: Patient presents today for [...] Britney Smith NP documented in this encounter [facility] 01-14-2025 History of Presen t illness Narrative Reason for Appointment: Patient ID: Hesham Avalos is a 24 y.o. female who presents for Routine Visit Patient presents today for Return OB appointment. MEDICATIONS Current Outpatient Medications Medication Instructions Ferrous Gluconate (IRON 27 PO) 1 each, Daily Qagpbqdj-Qou-Sh-FA (PRE-SIGIFREDO PO) 1 each, Daily ALLERGIES No Known Allergies PROBLEMS Active Ambulatory Problems Diagnosis Date Noted History of placental abnormality 12/24/2024 Resolved Ambulatory Problems Diagnosis Date Noted Obesity affecting in second trimester ([facility]) 01/27/2023 Velamentous insertion of umbilical cord in second trimester ([facility]) 01/27/2023 Past Medical History: Diagnosis Date 6 weeks follow-up ([facility]) HISTORY PAST MEDICAL HISTORY SOCIAL HISTORY Past Medical History: Diagnosis Date 6 weeks follow-up ([facility]) Social History Tobacco Use Smoking [...] nursing note reviewed. Exam conducted with a gaming surveillance observer present. Vitals: Estimated body mass index is 39.48 kg/m as calculated from the following: Height as of 24: 5' 4 . Weight as of this encounter: 230 lb. BP: 122/68 Patient's last menstrual period was 05/06/2024. ASSESSMENT & PLAN ICD-10-CM 1. Third trimester ([facility]) Z34.93 POCT urinalysis dipstick manually resulted CULTURE, GROUP B STREP WITH SUSCEPTIBLITY CULTURE, GROUP B STREP WITH SUSCEPTIBLITY 2. 36 weeks gestation of ([facility]) Z3A.36 Patient is doing well [...] Britney Smith NP documented in this encounter [facility] 01-06-2025 History of Presen t illness Narrative Reason for Appointment: Patient ID: Hesham Avalos is a 24 y.o. female who presents for Routine Visit Patient presents today for Return OB appointment. MEDICATIONS Current Outpatient Medications Medication Instructions Ferrous Gluconate (IRON 27 PO) 1 each, Daily Pcyincim-Kzn-Sa-FA (PRE-SIGIFREDO PO) 1 each, Daily ALLERGIES No Known Allergies PROBLEMS Active Ambulatory Problems Diagnosis Date Noted History of placental abnormality 12/24/2024 Resolved Ambulatory Problems Diagnosis Date Noted Obesity affecting in second trimester ([facility]) 01/27/2023 Velamentous insertion of umbilical cord in second trimester ([facility]) 01/27/2023 Past Medical History: Diagnosis Date 6 weeks follow-up ([facility]) HISTORY PAST MEDICAL HISTORY SOCIAL HISTORY Past Medical History: Diagnosis Date 6 weeks follow-up ([facility]) Social History Tobacco Use Smoking [...] ASSESSMENT & PLAN ICD-10-CM 1. Third trimester ([facility]) Z34.93 POCT urinalysis dipstick manually resulted 2. 35 weeks gestation of ([facility]) Z3A.35 Return OB: Patient presents [...] of: DIMAS Cormier documented in this encounter [facility] 12-24-2024 History of Presen t illness Narrative Reason for Appointment: Patient ID: Hesham Avalos is a 24 y.o. female who presents for Routine Visit Patient presents today for Return OB appointment. MEDICATIONS Current Outpatient Medications Medication Instructions Ferrous Gluconate (IRON 27 PO) 1 each, Daily Bcnnpgcb-Tna-Es-FA (PRE-SIGIFREDO PO) 1 each, Daily ALLERGIES No Known Allergies PROBLEMS Active Ambulatory Problems Diagnosis Date Noted History of placental abnormality 12/24/2024 Resolved Ambulatory Problems Diagnosis Date Noted Obesity affecting in second trimester ([facility]) 01/27/2023 Velamentous insertion of umbilical cord in second trimester ([facility]) 01/27/2023 Past Medical History: Diagnosis Date 6 weeks follow-up ([facility]) HISTORY PAST MEDICAL HISTORY SOCIAL HISTORY Past Medical History: Diagnosis Date 6 weeks follow-up ([facility]) Social History Tobacco Use Smoking [...] nursing note reviewed. Exam conducted with a gaming surveillance observer present. Vitals: Estimated body mass index is 39.31 kg/m as calculated from the following: Height as of 11/21/23: 5' 4 . Weight as of this encounter: 229 lb. BP: 124/70 Patient's last menstrual period was 05/06/2024. ASSESSMENT & PLAN ICD-10-CM 1. Third trimester ([facility]) Z34.93 POCT urinalysis dipstick manually resulted 2. 33 weeks gestation of ([facility]) Z3A.33 3. History of placental [...] Don Hidalgo DO documented in this encounter [facility] 12-12-2024 History of Presen t illness Narrative Reason for Appointment: Patient ID: Hesham Avalos is a 24 y.o. female who presents for Routine Visit Patient presents today for Return OB appointment. MEDICATIONS Current Outpatient Medications Medication Instructions Ferrous Gluconate (IRON 27 PO) 1 each, Daily Ljfutknw-Chm-Xy-FA (PRE- PO) 1 each, Daily ALLERGIES No Known Allergies PROBLEMS Active Ambulatory Problems Diagnosis Date Noted No Active Ambulatory Problems Resolved Ambulatory Problems Diagnosis Date Noted Obesity affecting in second trimester ([facility]) 01/27/2023 Velamentous insertion of umbilical cord in second trimester ([facility]) 01/27/2023 Past Medical History: Diagnosis Date 6 weeks follow-up ([facility]) HISTORY PAST MEDICAL HISTORY SOCIAL HISTORY Past Medical History: Diagnosis Date 6 weeks follow-up ([facility]) Social History Tobacco Use Smoking [...] ASSESSMENT & PLAN ICD-10-CM 1. Third trimester ([facility]) Z34.93 POCT urinalysis dipstick manually resulted 2. 31 weeks gestation of ([facility]) Z3A.31 Return OB: Patient presents [...] of: DIMAS Cormier documented in this encounter [facility] 11-28-2024 History of Presen t illness Narrative Reason for Appointment: Patient ID: Hesham Avalos is a 24 y.o. female who presents for Routine Visit Patient presents today for Return OB appointment. MEDICATIONS Current Outpatient Medications Medication Instructions Ferrous Gluconate (IRON 27 PO) 1 each, Daily Drdbajnt-Tel-Wg-FA (PRE- PO) 1 each, Daily ALLERGIES No Known Allergies PROBLEMS Active Ambulatory Problems Diagnosis Date Noted No Active Ambulatory Problems Resolved Ambulatory Problems Diagnosis Date Noted Obesity affecting in second trimester ([facility]) 01/27/2023 Velamentous insertion of umbilical cord in second trimester ([facility]) 01/27/2023 Past Medical History: Diagnosis Date 6 weeks follow-up ([facility]) HISTORY PAST MEDICAL HISTORY SOCIAL HISTORY Past Medical History: Diagnosis Date 6 weeks follow-up ([facility]) Social History Tobacco Use Smoking [...] nursing note reviewed. Exam conducted with a gaming surveillance observer present. Vitals: Estimated body mass index is 38.62 kg/m as calculated from the following: Height as of 11/21/23: 5' 4 . Weight as of this encounter: 225 lb. BP: 118/74 Patient's last menstrual period was 05/06/2024. ASSESSMENT & PLAN ICD-10-CM 1. Third trimester ([facility]) Z34.93 POCT urinalysis dipstick manually resulted 2. 29 weeks gestation of ([facility]) Z3A.29 Patient presents today for [...] Don Hidalgo DO documented in this encounter [facility] 11-14-2024 History of Presen t illness Narrative Reason for Appointment: Patient ID: Hesham Avalos is a 24 y.o. female who presents for Routine Visit Patient presents today for Return OB appointment. MEDICATIONS Current Outpatient Medications Medication Instructions Ferrous Gluconate (IRON 27 PO) 1 each, Daily Dtcdwgxv-Eph-Ot-FA (PRE- PO) 1 each, Daily ALLERGIES No Known Allergies PROBLEMS Active Ambulatory Problems Diagnosis Date Noted No Active Ambulatory Problems Resolved Ambulatory Problems Diagnosis Date Noted Obesity affecting in second trimester ([facility]) 01/27/2023 Velamentous insertion of umbilical cord in second trimester ([facility]) 01/27/2023 Past Medical History: Diagnosis Date 6 weeks follow-up ([facility]) HISTORY PAST MEDICAL HISTORY SOCIAL HISTORY Past Medical History: Diagnosis Date 6 weeks follow-up ([facility]) Social History Tobacco Use Smoking [...] ASSESSMENT & PLAN ICD-10-CM 1. Second trimester ([facility]) Z34.92 POCT urinalysis dipstick manually resulted 2. 27 weeks gestation of ([facility]) Z3A.27 Return OB: Patient presents [...] of: DIMAS Cormier documented in this encounter [facility] 10-17-2024 History of Presen t illness Narrative Reason for Appointment: Patient ID: Hesham Avalos is a 24 y.o. female who presents for Routine Visit Patient presents today for Return OB appointment. MEDICATIONS Current Outpatient Medications Medication Instructions Ferrous Gluconate (IRON 27 PO) 1 each, Daily Hfxvoubu-Hyi-Fe-FA (PRE-SIGIFREDO PO) 1 each, Daily ALLERGIES No Known Allergies PROBLEMS Active Ambulatory Problems Diagnosis Date Noted No Active Ambulatory Problems Resolved Ambulatory Problems Diagnosis Date Noted Obesity affecting in second trimester ([facility]) 01/27/2023 Velamentous insertion of umbilical cord in second trimester ([facility]) 01/27/2023 Past Medical History: Diagnosis Date 6 weeks follow-up ([facility]) HISTORY PAST MEDICAL HISTORY SOCIAL HISTORY Past Medical History: Diagnosis Date 6 weeks follow-up ([facility]) Social History Tobacco Use Smoking [...] nursing note reviewed. Exam conducted with a gaming surveillance observer present. Vitals: Estimated body mass index is 38.66 kg/m as calculated from the following: Height as of 24: 5' 4 . Weight as of this encounter: 225 lb 4 oz. BP: 114/58 Patient's last menstrual period was 05/06/2024. ASSESSMENT & PLAN ICD-10-CM 1. Second trimester ([facility]) Z34.92 POCT urinalysis dipstick manually resulted 2. 23 weeks gestation of [facility] Z3A.23 3. Diabetes mellitus screening Z13.1 CBC [...] Don Hidalgo DO documented in this encounter [facility] 10-07-2024 Hospital Discharg e instructions Patient Education [...] care provider who specializes in women's health (size painter). How is this treated? Treatment for this [...] partner about your condition. General instructions Take fadv-xcl-jnhvwvv and prescription medicines only as told by [...] sexual activity until your symptoms improve. Take ragk-euz-fsmurdg and prescription medicines only as told by [...] provider. Document Revised: 2021 Document Reviewed: 2021 [employer] Patient Education 2023 [employer]. Follow Up Care 08/08/2024 12:40:44 With:TINO MACK, Darin Cummins, URL Address: [facility] [address] , [place] [address]- [phone] When: only if needed [facility] 10-07-2024 Note Patient Education [...] care provider who specializes in women's health (size painter). How is this treated? Treatment for this [...] about your condition. General instructions ??? Take oxfu-acv-lufxmyf and prescription medicines only as told by [...] activity until your symptoms improve. ??? Take fios-srb-buwxrwo and prescription medicines only as told by your health care provider. ??? Contact a health care provider if your symptoms get worse or do not improve with treatment. ??? Keep all follow-up visits. This is important. This information is not intended to replace (more content not included)... [facility] 09-23-2024 History of Presen t [...] GENDER Have you been seen here at [facility] in a previous ? No Recent ER visits or hospitalizations? No Bring blood sugar log or meter with you today? (Please bring them with you for every visit at [facility]) n/a Flu vaccine (Feb-June)? No Any concerns [...] insurance preference.., Disp: 100 each, Rfl: 1 [id number]-oufh-ftbem-bz7 (DUET DHA WITH OMEGA-3) 25 mg iron-1 mg -400 mg combo pack, Take by mouth., Disp: , Rfl: ferrous sulfate (HIGH POTENCY IRON) 27 mg iron tablet, Take by mouth. (Patient not taking: Reported on 09/23/2024), Disp: , Rfl: ney351-sbje-xsyjn-nt0 25 mg iron-1 mg -400 mg combo [...] 39 weeks 8. Delivery method preferred vaginal. [place] C/[facility] for usual obstetrical indications TIME OF CONSULTATION: We spent 30 minutes with the patient, >50% in discussion and counseling, coordination of care which was gewc-sh-wpej. documented in this encounter [facility] 09-17-2024 History of Presen t illness Narrative Reason for Appointment: Patient ID: Hesham Avalos is a 24 y.o. female who presents for Routine Visit Patient presents today for Acute Visit. and Return OB appointment. MEDICATIONS Current Outpatient Medications Medication Instructions Ferrous Gluconate (IRON 27 PO) 1 each, Daily Drtthwuy-Pru-Ll-FA (PRE-SIGIFREDO PO) 1 each, Daily ALLERGIES No [...] Gluconate (IRON 27 PO) 1 each, Daily Jhsxgdjw-Dti-Cy-FA (PRE- PO) 1 each, Daily ALLERGIES No [...] nursing note reviewed. Exam conducted with a gaming surveillance observer present. Vitals: Estimated body mass index is [...] of: DIMAS Cormier documented in this encounter [facility] 08-20-2024 History of Presen t illness Narrative Reason for Appointment: Patient ID: Hesham Avalos is a 24 y.o. female who presents for Routine Visit Patient presents today for Return OB appointment. MEDICATIONS Current Outpatient Medications Medication Instructions Ferrous Gluconate (IRON 27 PO) 1 each, Daily Nqyohjjy-Trj-Ve-FA (PRE- PO) 1 each, Daily ALLERGIES No [...] nursing note reviewed. Exam conducted with a gaming surveillance observer present. Vitals: Estimated body mass index is [...] Date of Delivery: 02/10/25. Pt to see [facility] in September for anatomy scan. Pt given early one hour. Pt to return in 4 weeks for scheduled ob appt. Pt advised to take a baby aspirin. Documented by Brittany Christensen LPN on behalf of: Don Hidalgo DO documented in this encounter [facility] 08-05-2024 Note Patient Education Urology Cystoscopy Cystoscopy [...] including vitamins, herbs, eye drops, creams, and bccn-zug-lbfhxdz medicines. ??? Any problems you or family [...] tells you to take them. ??? Taking vmyt-pcd-yhbdxcl medicines, vitamins, herbs, and supplements. Tests You [...] these instructions at home: Medicines ??? Take ctdj-yqg-aesckch and prescription medicines only as told by [...] your (more content not included)... [facility] 07-23-2024 History of Presen t illness Narrative Reason for Appointment: Patient ID: Hesham Avalos is a 23 y.o. female who presents for No chief complaint on file. Patient presents today for Return OB appointment. MEDICATIONS Current Outpatient Medications Medication Instructions Ferrous Gluconate (IRON 27 PO) 1 each, Daily Zjjynlto-Jyp-Hb-FA (PRE-SIGIFREDO PO) 1 each, Daily ALLERGIES No [...] nursing note reviewed. Exam conducted with a gaming surveillance observer present. Vitals: Estimated body mass index is [...] or undercooked meat, and stay away from [facility]. Patient has been consulted regarding any further do's and don'ts of . Patient voiced understanding and all questions and concerns were answered. Cultures obtained. Pt being referred to [facility] for h/o placental abnormality (vasa previa). Pt has cyst on urethra- referred to urologist Orders Placed This Encounter Procedures CHLAMYDIA TRACHOMATIS (GENITO/STI) Neisseria gonorrhea DNA probe, direct POCT urinalysis dipstick manually resulted Follow Up: Patient is to return in 4 weeks for routine OB appointment. Documented by Brittany Christensen LPN on behalf of: Don Hidalgo DO documented in this encounter [facility] 05-24-2023 History of Presen t illness Narrative Hesham Avalos is a 22 y.o. 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 SUBJECTIVE: MEDICATIONS: Current Outpatient Medications Medication Instructions Nrdfpv-MrLqem-Lqalb-FA-Robert 3 (Duet DHA 400) 25-1 & 400 [...] tenderness or frontal sinus tenderness. Mouth/Throat: Lips: [place]. Mouth: Mucous membranes are moist. Pharynx: Oropharynx [...] follow-ups on file. documented in this encounter [facility] 04-12-2023 History of Presen t illness Narrative [...] Drug Allergies CURRENT MEDICATIONS: Current Outpatient Medications: [id number]-dyqp-jouwk-kb4 (DUET DHA WITH OMEGA-3) 25 mg iron-1 [...] insurance preference.., Disp: 100 each, Rfl: 1 nxv008-cshr-prdwq-nw3 25 mg iron-1 mg -400 mg combo [...] patient is in complete care of her motorcycle subassembler. Patient does have ultrasound and office visit scheduled with us. Thank you for allowing me to participate in the care of Hesham Avalos. If there any questions please do not hesitate to contact us. Daniella Reina MD Maternal- Medicine [facility] [address] [place] [address] [facility], the CDC, and other organizations representing maternal and public health professionals recommend that , , and lactating people and those considering receive the COVID-19 vaccination. Vaccination is the best method to reduce maternal and complications of SARS-CoV-2 infection. This document was created with [employer] technology. Though I make every effort to review the dictation as it is transcribed, on occasion the spoken word can be misinterpreted by the technology leading to inappropriate words, phrases, or sentences. This note is addressed to the requesting provider as a consultation for clinical guidance. Specific medical abbreviations are occasionally used and those are generally approved by the [place]?Board of?Obstetrics and?Gynecology?as well as?[employer] abbreviations. The above plan of care was based solely on the diagnoses for which a consultation was requested. ?More frequent testing may be indicated based on her other medical/obstetrical conditions. The management of other or medical conditions is beyond the scope of requested consultation and will continue to be followed by the primary motorcycle subassembler or primary care provider. Note to patient: [...] practitioner. documented in this encounter [facility] [employer] [facility] Evaluation + Plan note No data available for this section [facility] Evaluation note Diagnosis Encounter for wellness examination- Primary Anemia, unspecified type documented in this encounter [facility] HealthcareEvaluation note* Diagnosis 35 weeks gestation of - Primary Polyhydramnios affecting documented in this encounter [facility] SystemEvaluation note* Diagnosis 11 weeks gestation of [...] Primary documented in this encounter [facility] SystemEvaluation note* Diagnosis Polyhydramnios affecting [...] note* Diagnosis Third trimester ([facility]) state, incidental 38 weeks gestation of ([facility]) documented in this encounter [facility] HealthcareInstructionsNot on filedocumented in this encounter[facility] SystemInstructionsNot on filedocumented in this encounterProMedica Health SystemInstructionsNot on filedocumented in this encounterProHelen [facility] SystemInstructionsNot on filedocumented in this encounterProHelen Keller Hospital Health System Progress note No data available for this section [facility] Summary Purpose Family History No Family History [...] rosales Referred To Contact Daniella Reina MD [address] [address] Referral ID Status Reason Start Date Expiration Date V isits Requested Visits Authorized [id number] Pending Review 1 1 Referral ID Status Reason Start Date Expiration Date V isits Requested Visits Authorized [id number] Pending Review 1 1 Additional Source Comments INFORMATION SOURCE (unrecogn ized section and content) DATE CREATED AUTHOR 10/05/2018 [facility] DATE CREATED AUTHOR AUTHOR'S ORGANIZ ATION 04/13/2022 [facility] DATE CREATED AUTHOR AUTHOR'S ORGANIZ ATION 07/27/2024 [facility] DATE CREATED AUTHOR AUTHOR'S ORGANIZ ATION 09/24/2024 [facility] DATE CREATED AUTHOR AUTHOR'S ORGANIZ ATION 10/08/2024 [facility] ical Center DATE CREATED AUTHOR AUTHOR'S ORGANIZ ATION [facility] DATE CREATED AUTHOR AUTHOR'S ORGANIZ ATION 01/31/2025 [facility] dical Specialists [employer] Care Teams (unrecognized sec tion and content) Clerk Of Works Relationship Specialty Start Date End Date Taisha Pena MD [address] [place] [address] PCP - General Family Medicine 1/17/24 Clerk Of Works Relationship Specialty Start Date End Date Taisha Pena MD [address] [place] [address] PCP - General Family Medicine 05/03/23 Clerk Of Works Relationship Specialty Start Date End Date Taisha Pena MD [address] [place] [address] PCP - General Family Medicine 05/03/23 Clerk Of Works Relationship Specialty Start Date End Date Taisha Pena MD [address] [place] [address] PCP - General Family Medicine 05/03/23 Clerk Of Works Relationship Specialty Start Date End Date Taisha Pena MD [address] [place] [address] PCP - General Family Medicine 05/03/23 Clerk Of Works Relationship Specialty Start Date End Date Taisha Pena MD [address] [place] [address] PCP - General Family Medicine 05/03/23 Clerk Of Works Relationship Specialty Start Date End Date Taisha Pena MD [address] [place] [address] PCP - General Family Medicine 05/03/23 Clerk Of Works Relationship Specialty Start Date End Date Taisha Pena MD [address] [place] [address] PCP - General Family Medicine 05/03/23 Stephanie Sotelo NP [address] [place] [address] PCP - [employer] 07/16/24 Clerk Of Works Relationship Specialty Start Date End Date Taisha Pena MD [address] [facility] [place] [address] PCP - General Family Medicine 05/03/23 Stephanie Sotelo NP [address] [place] [address] PCP - [employer] 07/16/24 Clerk Of Works Relationship Specialty Start Date End Date Taisha Pena MD [address] [place] [address] PCP - General Family Medicine 05/03/23 Stephanie Sotelo NP [address] [place] [address] PCP - [employer] 07/16/24 Clerk Of Works Relationship Specialty Start Date End Date Taisha Pena MD [address] [place] [address] PCP - General Family Medicine 05/03/23 Stephanie Sotelo NP [address] [place] [address] PCP - [employer] 07/16/24 Clerk Of Works Relationship Specialty Start Date End Date Taisha Pena MD [address] [place] [address] PCP - General Family Medicine 05/03/23 Stephanie Sotelo NP [address] [place] [address] PCP - Marina Commercial 07/16/24 Clerk Of Works Relationship Specialty Start Date End Date Taisha Pena MD [address] [place] [address] PCP - General Family [facility] 05/03/23 Stephanie Sotelo NP [address] [place] [address] PCP - [facility] 07/16/24 Clerk Of Works Relationship Specialty Start Date End Date Taisha Pena MD [address] [place] [address] PCP - General [facility] 05/03/23 Stephanie Sotelo NP [address] [place] [address] PCP - [facility] 07/16/24 Clerk Of Works Relationship Specialty Start Date End Date Taisha Pena MD [address] [place] [address] PCP - General [facility] 05/03/23 Stephanie Sotelo NP [address] [place] [address] PCP - [facility] 07/16/24 Reason for Visit (unrecogniz ed [...] BE BASED ON THE PRIMARY CLINICAL RECORDS. [facility]. provides no warranty or guarantee of the accuracy or completeness of information in this document.
--- NOTE | 2025-02-01 10:08 | US_ITS ---
[address] [address] Patient Name: HESHAM TAYLOR MRN: TBH:[id number] date: 2000 Sex: F Assigned Patient Location: [facility] Current Patient Location: Accession/Order Number: [id number] Exam Date: 02/01/2025 10:10 Report Date: 02/01/2025 15:04 At the request of: BRITNEY VARELA Procedure: US OB BPP w non-stress US OB BPP w non-stress 02/01/2025 10:38 AM SIGNS AND SYMPTOMS: ^EXCESSIVE GROWTH AFFECTING O36.63X0 PROTOCOL: Transabdominal sonographic imaging of the gravid uterus COMPARISON: None FINDINGS: Estimated age: 38 weeks 5 days heart rate: 142 bpm Amniotic fluid index: 19.78 cm with the deepest vertical pocket measuring 5.86 cm. Biophysical profile: breathing movements: 2/2 Gross body movements: 2/2 tone: 2/2 Amniotic fluid volume: 2/2 US/US OB BPP w non-stress IMPRESSION: Biophysical profile: 11/22 Impression dictated by: Wilfrido Atkinson M.D. 02/01/2025 3:04 PM Dictation Location: [place] [address] Electronically authenticated by: [id number] Y Date: 02/01/2025 15:04
== END 2025-02-01 11:15 | disposition home or self-care (01) ==
LOC: US 10:02 → FBC 10:03
PROVIDERS: PCP Family Medicine; Visit Provider Nurse Practitioner Family
DX: O36.63X0 Maternal care for excessive fetal growth, third trimester, not applicable or unspecified (principal); Z87.59 Personal history of other complications of pregnancy, childbirth and the puerperium; Z3A.38 38 weeks gestation of pregnancy
CPT/HCPCS: 76818

== ENCOUNTER 2025-02-03 04:53 | Inpatient (IN) | payer BC, SELFPAY ==
--- OUTSIDE RECORDS SUMMARY | 2025-01-23 10:20 | XMS_ITS | Encounter Summary ---
Author Organization [facility] Address [address] [place] [address] Care Team Providers Care Repair Order Clerk Name Role Phone Taisha Ortiz MD Primary Care Provider [phone] Stephanie Sotelo GLOBAL MANAGER Unavailable [phone] Reason for Visit * Reason Comments Routine Visit Encounter Details Date Type Department Care Team ([facility] Contact Info) Description 01/23/2025 10:20 AM EDT Routine [facility] [address] [place] [address] Kendra Smith NP [address] [place] [address] Third trimester ([facility]); 37 weeks gestation of ([facility]) Social History Tobacco Use Types Packs/Day [...] or ex-partner? No 05/17/2023 Social Connection and Isolation Panel Answer Date Recorded In a typical week, how many times do you talk on the phone with family, friends, or neighbors? More than three times a week 05/17/2023 How often do you get togethe r with friends or relatives? Twice a week 05/17/2023 How often do you attend [facility] or anabaptist services? 1 to 4 times per year 05/17/2023 Do you belong to any clubs o r organizations such as confucianism groups, unions, fraternal or athletic groups, or [...] Patient Health Questionnaire-2 Score 0 05/24/2023 [facility] - Occupational Stress [...] Sign Reading Time Taken Comments Blood Pressure 124/72 01/23/2025 10:22 AM EDT Pulse - - Temperature - - Respiratory Rate - - Oxygen Saturation - - Inhaled Oxygen Concentration - - Weight 105 kg (232 lb) 01/23/2025 10:22 AM EDT Height - - Body Mass Index 39.82 11/21/2023 2:10 PM EDT documented in this encounter Progress Notes * Kendra Smith NP - 01/23/2025 10:20 AM EDT Reason for Appointment: Patient ID: Shelby Avalos is a 24 y.o. female who presents for Routine Visit Patient presents today for Return OB appointment. MEDICATIONS Current Outpatient Medications Medication Instructions Ferrous Gluconate (IRON 27 PO) 1 each, Daily Weszgorl-Cty-Lf-FA (PRE- PO) 1 each, Daily ALLERGIES No Known Allergies PROBLEMS Active Ambulatory Problems Diagnosis Date Noted History of placental abnormality 12/24/2024 Resolved Ambulatory Problems Diagnosis Date Noted Obesity affecting in second trimester ([facility]) 01/27/2023 Velamentous insertion of umbilical cord in second trimester ([facility]) 01/27/2023 Past Medical History: Diagnosis Date 6 weeks follow-up ([facility]) HISTORY PAST MEDICAL HISTORY SOCIAL HISTORY Past Medical History: Diagnosis Date 6 weeks follow-up ([facility]) Social History Tobacco Use Smoking status: [...] nursing note reviewed. Exam conducted with a sleeve wheel maker present. Vitals: Estimated body mass index is 39.82 kg/m?? as calculated from the following: Height as of 24: 5' 4 . Weight as of this encounter: 232 lb. BP: 124/72 Patient's last menstrual period was 05/06/2024. ASSESSMENT & PLAN ICD-10-CM 1. Third trimester ([facility]) Z34.93 POCT urinalysis dipstick manually resulted 2. 37 weeks gestation of ([facility]) Z3A.37 Return OB: Patient presents today for a routine obstetrics appointment. Patient is currently 37w3d . Patient states she is doing well [...] week for routine OB appointment. Documented by Kendra Smith NP on behalf of: Kendra Smith NP documented in this encounter Plan of Treatment Upcoming Encounters Date Type Department Care Team (Late st Contact Info) Description 02/05/2025 2:20 PM EDT Routine [facility] [address] [place] [id number] Kathie Lee PA [address] [place] [address] documented as of this encounter Procedures Procedure Name Priority Date/Time Associated Diagnosis Comments POCT URINALYSIS DIPSTICK Routine 01/23/2025 10:29 AM EDT Third trimester ([facility]) documented in this encounter Results * (ABNORMAL) POCT urinalysis dipstick manually resulted (01/23/2025 10:29 AM EDT) Color, UA Yellow Clarity, UA Clear Glucose, UA Negative Negative - 2000(110) ++++ mg/dL Bilirubin, UA Negative Negative - 4(70) +++ mg/dL Ketones, UA Negative Negative - 160(16) ++++ mg/dL Spec Grav, UA 1.020 1 - 1.03 Blood, UA Positive Negative - 50 Eulogio/mcL Comment:3+ pH, UA 6.5 5 - 9 Protein, UA Negative Negative - 2000(20) ++++ mg/dL Urobilinogen, UA 0.2 0.2 - 12 mg/dL Leukocytes, UA Negative Negative - 500+++ Rufina/mcL Nitrite, UA Negative Negative - Positive Urine 01/23/2025 10:2 9 AM EDT Kendra Smith NP POINT OF CARE TEST ENTER/EDIT ORDERABLES Final Result documented in this encounter Visit Diagnoses Diagnosis Third trimester ([facility]) state, incidental 37 weeks gestation of ([facility]) documented in this encounter Care Teams Repair Order Clerk Relationship Specialty Start Date End Date Taisha Ortiz MD [address] [place] [address] PCP - General Family Medicine 05/03/23 Stephanie Sotelo NP [address] [place] [address] PCP - Carloz Eduardo 07/16/24 documented as of this encounter
--- OUTSIDE RECORDS SUMMARY | 2025-01-29 13:50 | XMS_ITS | Encounter Summary ---
Author Organization [facility] Address [address] [place] [address] Care Team Providers Care Food Service Steward Name Role Phone Taisha Ortiz MD Primary Care Provider [phone] Stephanie Sotelo AURICULAR DETOXIFICATION SPECIALIST Unavailable [phone] Reason for Visit * Reason Comments Routine Visit Encounter Details Date Type Department Care Team (Late Contact Info) Description 01/29/2025 1:50 PM EDT Routine [facility] [address] [place] [phone] Kathie Lee PA [address] [place], [place] [id number] Third trimester ([facility]); 38 weeks gestation of ([facility]) Social History Tobacco Use Types Packs/Day [...] week 05/17/2023 How often do you attend [facility] or mandaeism services? 1 to 4 times [...] Patient Health Questionnaire-2 Score 0 05/24/2023 [facility] - Occupational Stress [...] Sign Reading Time Taken Comments Blood Pressure 138/82 01/29/2025 3:25 PM EDT Pulse - - Temperature - - Respiratory Rate - - Oxygen Saturation - - Inhaled Oxygen Concentration - - Weight 105 kg (231 lb 1.9 oz) 01/29/2025 3:25 PM EDT Height - - Body Mass Index 39.67 11/21/2023 2:10 PM EDT documented in this encounter Progress Notes * DIMAS Cormier - 01/29/2025 1:50 PM EDT Reason for Appointment: Patient ID: Shelby Avalos is a 24 y.o. female who presents for Routine Visit Patient presents today for Return OB appointment. MEDICATIONS Current Outpatient Medications Medication Instructions Ferrous Gluconate (IRON 27 PO) 1 each, Daily Ptknutja-Nfq-Ns-FA (PRE- PO) 1 each, Daily ALLERGIES Allergies[1] PROBLEMS Active Ambulatory Problems Diagnosis Date Noted History of placental abnormality 12/24/2024 Resolved Ambulatory Problems Diagnosis Date Noted Obesity affecting in second trimester ([facility]) 01/27/2023 Velamentous insertion of umbilical cord in second trimester ([facility]) 01/27/2023 Past Medical History: Diagnosis Date 6 weeks follow-up ([facility]) HISTORY PAST MEDICAL HISTORY SOCIAL HISTORY Medical History[2] Social History Tobacco Use Smoking status: Never Smokeless tobacco: Never Substance Use Topics Alcohol use: Not Currently Drug use: Never FAMILY HISTORY Family History[3] SURGICAL HISTORY Surgical History[4] REVIEW OF SYSTEMS Review of Systems: Review [...] reviewed. Vitals: Estimated body mass index is 39.82 kg/m?? as calculated from the following: Height as of 24: 5' 4 . Weight as of 01/23/25: 232 lb. BP: Patient's last menstrual period was 05/06/2024. ASSESSMENT & PLAN ICD-10-CM 1. Third trimester ([facility]) Z34.93 2. 38 weeks gestation of ([facility]) Z3A.38 POCT urinalysis dipstick manually resulted Return OB: Patient presents today for a routine obstetrics appointment. Patient is currently 38w2d . Patient states she is doing well [...] DIMAS Cormier on behalf of: DIMAS Cormier [1] No Known Allergies [2] Past Medical History: Diagnosis Date 6 weeks follow-up ([facility]) [3] Family History Problem Relation Name Age of Onset Hypertension Maternal Grandmother Fior Diabetes Maternal Grandmother Fior Cancer Maternal Grandfather Fior Heart failure Maternal Grandfather Fior Cancer Paternal Grandfather Rajat Seizures Sister Nicole [4] Past Surgical History: Procedure Laterality Date MOUTH SURGERY 2018 MYRINGOTOMY W/ TUBES 2002 documented in this encounter Plan of Treatment Upcoming Encounters Date Type Department Care Team (Late st Contact Info) Description 02/05/2025 2:20 PM EDT Routine [facility] [address] [place] [phone] Kathie Lee PA [address] [place] [address] documented as of this encounter Procedures Procedure Name Priority Date/Time Associated Diagnosis Comments POCT URINALYSIS DIPSTICK Routine 01/29/2025 2:19 PM EDT 38 weeks gestation of ([facility]) documented in this encounter Results * (ABNORMAL) POCT urinalysis dipstick manually resulted (01/29/2025 2:19 PM EDT) Color, UA Yellow Clarity, UA Clear Glucose, UA Negative Negative - 2000(110) ++++ mg/dL Bilirubin, UA Negative Negative - 4(70) +++ mg/dL Ketones, UA Positive Negative - 160(16) ++++ mg/dL Spec Grav, UA 1.020 1 - 1.03 Blood, UA Negative Negative - 50 Eulogio/mcL pH, UA 6.0 5 - 9 Protein, UA Positive Negative - 2000(20) ++++ mg/dL Urobilinogen, UA 2.0 0.2 - 12 mg/dL Leukocytes, UA Negative Negative - 500+++ Rufina/mcL Nitrite, UA Negative Negative - Positive Urine 01/29/2025 2:19 PM EDT Kathie COCHRAN POINT OF CARE TEST ENTER/EDIT OR DERABLES Final Result documented in this encounter Visit Diagnoses Diagnosis Third trimester ([facility]) state, incidental 38 weeks gestation of ([facility]) documented in this encounter Care Teams Food Service Steward Relationship Specialty Start Date End Date Taisha Ortiz MD [address] [place], [place] [phone] PCP - General Family Medicine 05/03/23 Stephanie Sotelo NP [address], [place] [phone] PCP - Carloz Eduardo 07/16/24 documented as of this encounter
[2025-02-03] VITALS (48 sets, daily range): BP systolic 108–155; BP diastolic 54–83; PULSE 73–139; TEMP 36.6–37
--- OUTSIDE RECORDS SUMMARY | 2025-02-03 04:57 | XMS_ITS | Encounter Summary ---
Author Organization [facility] Address [address] [place] [address] Care Team Providers Care Newspaper Subscription Solicitor Name Role Phone Taisha Ortiz MD Primary Care Provider [phone] Stephanie Sotelo ROOF SHINGLER Unavailable [phone] Encounter Details Date Type Department Care Team (Late st Contact Info) Description 01/23/2025 Bamboo flowsheet CONY Spencer OBGYN [address] [facility] [place] [address] Kendra Smith NP [address] [facility] [place] [address] Social History Tobacco Use Types Packs/Day [...] Recorded Patient Health Questionnaire-2 Score 0 05/24/2023 [facility] of Occupat ional [facility] - Occupational Stress Questionnaire Answer [...] 02/05/2025 2:20 PM EDT Routine [facility] Tj JAVIER [address] [facility] [place] [phone] Kathie Lee PA [address] [facility] [place] [address] documented as of this encounter Visit Diagnoses Not on filedocumented in this encounter Care Teams Newspaper Subscription Solicitor Relationship Specialty Start Date End Date Taisha Ortiz MD [address] [place] [address] PCP - General Family Medicine 1/17/24 Stephanie Sotelo NP [address] [place] [id number] PCP - Carloz Eduardo 07/16/24 documented as of this encounter
--- OUTSIDE RECORDS SUMMARY | 2025-02-03 04:57 | XMS_ITS | Encounter Summary ---
Author Organization [facility] Address [address] [place] [address] Care Team Providers Care Tooth Cutter Spur Name Role Phone Dayana Pena MD Primary Care Provider [phone] Stephanie Sotelo OR NURSE MANAGER Unavailable [phone] Encounter Details Date Type Department Care Team (Late st Contact Info) Description 01/25/2025 Clinisync Result Encounter NOMS External Department Unsolicited [...] 05/24/2023 [facility] of Occupat ional Health - Occupational [...] PM EDT Routine [facility]OM[facility] Tj OBGYN [address] [facility] [address] [place] [address] Kathie Lee PA [address] [facility] [place] [address] documented as of this encounter Procedures Procedure Name Priority Date/Time Associated Diagnosis Comments US OB BPP W NON-STRESS 01/25/2025 11:11 AM EDT documented in this encounter Results * US OB BPP W NON-STRESS (01/25/2025 11:11 AM EDT) Anatomical Region Laterality Modality Other 01/25/2025 11:1 1 AM EDT Narrative 01/25/2025 11:14 AM EDT The [address] [address] Ultrasound Report Signed Patient: HESHAM TAYLOR MR#: [id number] : 2000 Acct:[id number] Age/Sex: 24 / F ADM Date: 01/25/25 Loc: US Attending Dr: Britney Smith Ordering Physician: Britney Smith Date of Service: 01/25/25 Procedure(s): US OB BPP w non-stress Accession Number(s): [id number] cc: Britney Smith; DAYANA PENA The [place] [id number] Patient Name: HESHAM TAYLOR MRN: [facility]:[id number] date: 2000 Sex: F Assigned Patient Location: [facility] Current Patient Location: Accession/Order Number: [id number] Exam Date: 01/25/2025 10:07 Report Date: 01/25/2025 11:11 At the request of: BRITNEY SMITH Procedure: US OB BPP w non-stress Ultrasound biophysical profile INDICATION: Excessive growth Findings and impression: 11/22 score biophysical profile and ZEB measures 20.9 cm. heart rate 139 beats per minutes. Impression dictated by: Juan M Newman M.D. 01/25/2025 11:11 AM Dictation Location: [place] [address] Electronically authenticated by: [id number] Y Date: 01/25/2025 11:11 Dictated By: Juan M Newman M.D. Signed By: 01/25/25 1114 DD/ 1111 TD/TT: Cane Burner: Procedure Note Radiology, Radiologist, MD - 01/25/2025 [place] [address] Ultrasound Report Signed Patient: HESHAM TAYLOR AMR#: [id number] : 2000Acct:[id number] Age/Sex: 24 / FADM Date: 01/25/25 Loc: US Attending Dr: Britney Smith Ordering Physician: Britney Smith Date of Service: 01/25/25 Procedure(s): US OB BPP w non-stress Accession Number(s): [id number] cc: Britney Smith; DAYANA PENA [place] [id number] Patient Name: HESHAM TAYLOR MRN: [facility]:[id number] date: 2000 Sex: F Assigned Patient Location: [facility] Current Patient Location: Accession/Order Number: [id number] Exam Date: 01/25/2025 10:07 Report Date: 01/25/2025 11:11 At the request of: BRITNEY SMITH Procedure: US OB BPP w non-stress Ultrasound biophysical profile INDICATION: Excessive growth Findings and impression: 11/22 score biophysical profile and ZEB ourbwnhy04.9 cm. heart rate 139 beats per minutes. Impression dictated by: Juan M Newman M.D. 01/25/2025 11:11 AM [facility]ictation [facility] Electronically authenticated by: [id number] Y Date: 1:11 Dictated By: Juan M Newman M.D. Signed By:01/25/25 1114 DD/ 1111 TD/TT: Cane Burner: us Generic External Data Provider [facility] Final Result documented in this encounter Visit Diagnoses Not on filedocumented in this encounter Care Teams Tooth Cutter Spur Relationship Specialty Start Date End Date Dayana Pena MD [address] [facility] [place] [address] PCP - General Family Medicine 05/03/23 Stephanie Sotelo NP [address] [facility] [place] [address] PCP - [place] [employer] 07/16/24 documented as of this encounter
--- OUTSIDE RECORDS SUMMARY | 2025-02-03 04:57 | XMS_ITS | Encounter Summary ---
Author Organization [facility] Address [address] [place] [address] Care Team Providers Care Leather Repairer Name Role Phone Taisha Ortiz MD Primary Care Provider [phone] Stephanie Sotelo PIPE MANUFACTURE SUPERVISOR Unavailable [phone] Encounter Details Date Type Department Care Team (Late st Contact Info) Description 07/17/2024 Abstract NOM[facility]idhya Spencer OBGYN [address] [facility] [place] [address] Don Hidalgo DO [address] [facility] [place] [address] Social History Tobacco Use Types Packs/Day Years [...] any clubs o r organizations such as congregational groups, unions, fraternal or athletic groups, or [...] Recorded Patient Health Questionnaire-2 Score 0 05/24/2023 [facility] of Occupat ional Health - Occupational [...] 02/05/2025 2:20 PM EDT Routine [facility]OM[facility] Tj JVAIER [address] [place] [address] Kathie Lee PA [address] [facility] [place] [address] documented as of this encounter Visit Diagnoses Not on filedocumented in this encounter Care Teams Leather Repairer Relationship Specialty Start Date End Date Taisha Ortiz MD [address] [place] [address] PCP - General Family Medicine 05/03/23 Stephanie Sotelo NP [address] [place] [phone] PCP - Carloz Eduardo 07/16/24 documented as of this encounter
--- OUTSIDE RECORDS SUMMARY | 2025-02-03 04:57 | XMS_ITS | Encounter Summary ---
Author Organization [facility] Address [address] [place] [address] Care Team Providers Care Free Lance Model Name Role Phone Taisha Ortiz MD Primary Care Provider [phone] Stephanie Sotelo ELECTROMEDICAL EQUIPMENT TECHNICIAN Unavailable [phone] Encounter Details Date Type Department Care Team (Late st Contact Info) Description 07/23/2024 Abstract [facility]idhya Spencer OBGYN [address] [facility] [address] Don Hidalgo DO [address] [facility] [place] [address] Social History Tobacco Use Types Packs/Day Years [...] often do you attend chur ch or sabianist services? 1 to 4 times per year 05/17/2023 Do you belong to any clubs o r organizations such as scientology groups, unions, fraternal or athletic groups, or [...] Recorded Patient Health Questionnaire-2 Score 0 05/24/2023 [facility]at ional Health - Occupational [...] to sleep or slept in a senior care (including now)? No 05/17/2023 Estimated Date of [...] PM EDT Routine [facility]OM[facility] Tj JAVIER [address] [facility] [address] Kathie Lee PA [address] [facility] [place] [address] documented as of this encounter Visit Diagnoses Not on filedocumented in this encounter Care Teams Free Lance Model Relationship Specialty Start Date End Date Taisha Ortiz MD [address] [place] [address] PCP - General Family Medicine 05/03/23 Stephanie Sotelo NP [address] [place] [address] PCP - Carloz Eduardo 07/16/24 documented as of this encounter
--- OUTSIDE RECORDS SUMMARY | 2025-02-03 04:58 | XMS_ITS | Encounter Summary ---
Author Organization [facility] Address [address] [place] [address] Care Team Providers Care Core Driller Helper Name Role Phone Taisha Ortiz MD Primary Care Provider [phone] Stephanie Sotelo GOLD BLOWER Unavailable [phone] Encounter Details Date Type Department Care Team (Late st Contact Info) Description 09/23/2024 External Result Encounter [facility] Tj OBGYN [address] [facility] [place] [address] Rebeca Hidalgo DO [address] [facility] [address] [place], [place] [address] Social History Tobacco Use Types Packs/Day Years [...] Patient Health Questionnaire-2 Score 0 05/24/2023 [facility] of Occupat ional [facility] - Occupational Stress Questionnaire Answer Date Recorded [...] PM EDT Routine [facility]OM[facility] Tj OBGYN [address] [address] Kathie Lee PA [address] [facility] [place] [address] documented as of this encounter Procedures Procedure Name Priority Date/Time Associated Diagnosis Comments US OB 14+ WEEKS ANATOMY SCAN 09/23/2024 1:55 PM EDT documented in this encounter Results * US OB 14+ weeks anatomy scan (09/23/2024 1:55 PM EDT) Anatomical Region Laterality Modality Body Ultrasound 09/23/2024 1:55 PM EDT Narrative 09/23/2024 1:55 PM EDT THIS EXAM WAS PERFORMED AT [facility] NAME: CLAUDIA DAHL : 2000 SEX: F Accession Number: [id number] ORDERING PHYSICIAN: CINTIA BANEGAS REFERRING PHYSICIAN: REBECA HIDALGO Coding ----- --------- Procedures 94726: Ultrasound, uterus, real time with image documentation, and maternal evaluation plus detailed anatomic examination, transabdominal approach;single or first gestation 19484: Transvaginal Ultrasound (OB) Indication ----- --------- Screening [...] Hadlock OFD 68.8 mm 23w 0d >99% Hrei HC 186.3 mm 21w 0d 83% Hadlock Cerebellum tr 21.2 mm 20w 1d 79% Hill Nuchal fold 5.5 mm AC 156.8 mm 20w 6d 72% Hadlock Femur 32.3 mm 20w 0d 45% Hadlock Humerus 31.1 mm 20w 2d 67% Heri HC / AC 1.19 68% Hadlock EFW 359 g 74% Hadlock EFW (lb) 0 lb EFW (oz) 13 oz EFW by: Hadlock (LEF-AT-GB-FL) Extended Tibia 28.7 mm 20w 3d 71% Heri Tag Machine Operator 8.2 mm CM 5.6 mm 70% [...] Nose. Maxilla. Mandible. Orbits. Heart / Thorax 5-oezkhm-lxukblf view. Aortic arch view. Interventricular septum. Great [...] 3.91 cm. Recommendations ----- --------- Please see [facility] documentation from today. Follow-up in 4-6 weeks is scheduled for completion of the anatomic survey Subsequent follow up or other follow up as clinically determined by primary OB provider unless otherwise specified by [facility]. Results forwarded to ordering provider so they can follow up with the patient as necessary. The copy-to physician of this order is REBECA King The ordering physician of this order is CINTIA Hartmann Procedure Note Radiology, Radiologist, - 09/23/2024 THIS EXAM WAS PERFORMED AT [facility] NAME: CLAUDIA DAHL : 2000 SEX: F Accession Number: [id number] ORDERING PHYSICIAN: CINTIA BANEGAS REFERRING PHYSICIAN: REBECA HIDALGO Coding ----- --------- Procedures 71617: Ultrasound, uterus, real time with imagedocumentation, and maternal evaluation plus detailed anatomic examination, transabdominalapproach;single or first gestation 46827: Transvaginal Ultrasound (OB) Indication ----- --------- Screening [...] EFW (oz) 13 oz EFW by: Hadlock (BHX-YA-DV-FL) Extended Tibia 28.7 mm 20w 3d 71% Heri Tag Machine Operator 8.2 mm CM 5.6 mm 70% [...] Nose. Maxilla. Mandible. Orbits. Heart / Thorax 5-etkpik-aqotlyp view. Aortic arch view. Interventricularseptum. Great vessels. [...] 3.91 cm. Recommendations ----- --------- Please see [facility] documentation from today. Follow-up in 4-6 weeks isscheduled for completion of the anatomic survey Subsequent follow up or other follow up as clinically determined byprimary OB provider unless otherwise specified by [facility]. Results forwarded to ordering provider so they can follow up with thepatient as necessary. The copy-to physician of this order is REBECA King The ordering physician of this order is CINTIA Hartmann us Rebeca Hidalgo DO IMG OB US PROCEDURES Final Resul t documented in this encounter Visit Diagnoses Not on filedocumented in this encounter Care Teams Core Driller Helper Relationship Specialty Start Date End Date Taisha Ortiz MD [address] [place], [place] [phone] PCP - General Family Medicine 05/03/23 Stephanie Sotelo NP [address] [facility] [place], [place] [address] PCP - Carloz Eduardo 07/16/24 documented as of this encounter
--- OUTSIDE RECORDS SUMMARY | 2025-02-03 04:58 | XMS_ITS | Encounter Summary ---
Author Organization [facility] Address [address] [place] [address] Care Team Providers Care Facilities Manager Name Role Phone Taisha Ortiz MD Primary Care Provider [phone] Stephanie Sotelo WAVE SOLDER OFFBEARER Unavailable [phone] Encounter Details Date Type Department Care Team (Late st Contact Info) Description 10/28/2024 Abstract [facility]OM[facility]idhya Spencer OBGYN [address] [facility] [place] [address] Don Hidalgo DO [address] [facility] [place] [address] Social History Tobacco Use Types Packs/Day Years [...] often do you attend chur ch or anglican services? 1 to 4 times [...] Recorded Patient Health Questionnaire-2 Score 0 05/24/2023 [facility] of Occupat ional Health - Occupational [...] PM EDT Routine [facility]OM[facility] Tj JAVIER [address] [facility] [place] [address] Kathie Lee PA [address] [facility] [place] [address] documented as of this encounter Visit Diagnoses Not on filedocumented in this encounter Care Teams Facilities Manager Relationship Specialty Start Date End Date Taisha Ortiz MD [address] [place] [address] PCP - General Family Medicine 05/03/23 Stephanie Sotelo NP [address] [place] [phone] PCP - Carloz Eduardo 07/16/24 documented as of this encounter
--- OUTSIDE RECORDS SUMMARY | 2025-02-03 04:58 | XMS_ITS | Encounter Summary ---
Author Organization [facility] Address [address] [place] [address] Care Team Providers Care Monotype Caster Name Role Phone Taisha Ortiz MD Primary Care Provider [phone] Stephanie Sotelo BRINE SUPERVISOR Unavailable [phone] Encounter Details Date Type Department Care Team (Late st Contact Info) Description 12/30/2022 Clinisync Result Encounter NOMS External Department Unsolicited Kathie Roman PA [address] [facility] [address] [place], [place] [phone] Social History Tobacco Use Types Packs/Day Years [...] PM EDT Routine [facility]OM[facility] Tj JAVIER [address] [facility] [place] [place] [address] Kathie Roman PA [address] [place] [address] [place] [address] documented as of this encounter Procedures Procedure Name Priority Date/Time Associated Diagnosis Comments US OB TRANSVAGINAL 12/30/2022 5: 41 PM EDT documented in this encounter Results * US OB TRANSVAGINAL (12/30/2022 5:41 PM EDT) Anatomical Region Laterality Modality Other 12/30/2022 5:41 PM EDT Narrative 12/30/2022 5:41 [place] [address] Ultrasound Report Signed Patient: HESHAM TAYLOR MR#: [id number] : 2000 Acct:[id number] Age/Sex: 22 / F ADM Date: 12/30/22 Loc: US Attending Dr: Kathie Roman Ordering Physician: Kathie Roman Date of Service: 12/30/22 Procedure(s): US OB transvaginal Accession Number(s): [id number] cc: Kathie Roman; Physician,Non-Staff M.D. [place] [address] Patient Name: HESHAM TAYLOR MRN: [id number] date: 2000 Sex: F Assigned Patient Location: Current Patient Location: Accession/Order Number: [id number] Exam Date: 12/30/2022 07:55 Report Date: 12/30/2022 [...] M.D. Signed By: 12/30/221743 DD/ 40 TD/TT: Car Rental Service Attendant: Procedure Note Radiology, Radiologist, - 01/06/2023 [place] [address] Ultrasound Report Signed Patient: HESHAM TAYLOR AMR#: [id number] : 2000Acct:[id number] Age/Sex: 22 / FADM Date: 12/30/22 Loc: US Attending Dr: Kathie Roman Ordering Physician: Kathie Roman Date of Service: 12/30/22 Procedure(s): US OB transvaginal Accession Number(s): [id number] cc: Kathie Roman; Physician,Non-Staff Ann-Marie The [address] [address] Patient Name: HESHAM TAYLOR MRN: [id number] date: 2000 Sex: F Assigned Patient Location: US Current Patient Location: US Accession/Order Number: [id number] Exam Date: 12/30/2022 07:55 Report Date: 12/30/2022 [...] Souza M.D. Signed By:12/30/221743 DD/ 40 TD/TT: Car Rental Service Attendant: us Kathie COCHRAN [facility] Final Result documented in this encounter Visit Diagnoses Not on filedocumented in this encounter Care Teams Monotype Caster Relationship Specialty Start Date End Date Taisha Ortiz MD [address] [place], [place] [phone] PCP - General Family Medicine 05/03/23 Stephanie Sotelo NP [address] [facility] [address] [place], [place] [address] PCP - Carloz Eduardo 07/16/24 documented as of this encounter
--- OUTSIDE RECORDS SUMMARY | 2025-02-03 04:58 | XMS_ITS | Encounter Summary ---
Author Organization [facility] Address [address] [place] [address] Care Team Providers Care Metalworking Specialist Name Role Phone Taisha Ortiz MD Primary Care Provider [phone] Stephanie Sotelo SURFACE PLATE INSPECTOR Unavailable Encounter Details Date Type Department Care Team (Late st Contact Info) Description 01/29/2025 Bamboo flowsheet CONY Spencer OBGYN [address] [place] [address] Kathie Lee PA [address] [facility] [address] Social History Tobacco Use Types Packs/Day Years [...] often do you attend chur ch or catholic services? 1 to 4 times per [...] 0 05/24/2023 [facility] of Occupat ional [facility] - Occupational Stress Questionnaire Answer Date [...] PM EDT Routine NOM[facility] Tj JAVIER [address] [place] [address] Kathie Lee PA [address] [place] [address] documented as of this encounter Visit Diagnoses Not on filedocumented in this encounter Care Teams Metalworking Specialist Relationship Specialty Start Date End Date Taisha Ortiz MD [address] [place] [address] PCP - General Family Medicine 05/03/23 Stephanie Sotelo NP [address] [place] [address] PCP - Carloz Eduardo 07/16/24 documented as of this encounter
--- OUTSIDE RECORDS SUMMARY | 2025-02-03 04:58 | XMS_ITS | Encounter Summary ---
Author Organization [facility] Address [address] [place] [address] Care Team Providers Care Clinic Coordinator Name Role Phone Taisha Ortiz MD Primary Care Provider [phone] Stephanie Sotelo MANAGER E LEARNING Unavailable [phone] Encounter Details Date Type Department Care Team (Late st Contact Info) Description 12/30/2022 Clinisync Result Encounter NOMS External Department Unsolicited Kathie Roman PA [address] [facility] [address] [place], [place] [phone] Social History Tobacco Use Types Packs/Day Years [...] EDT Routine [facility]OM[facility] Tj JAVIER [address] [facility] [address] Kathie Roman PA [address] [place] [address] [place] [address] documented as of this encounter Procedures Procedure Name Priority Date/Time Associated Diagnosis Comments US OB ANATOMY 12/30/2022 5:41 PM EDT documented in this encounter Results * US OB ANATOMY (12/30/2022 5:41 PM EDT) Anatomical Region Laterality Modality Other 12/30/2022 5:41 PM EDT Narrative 12/30/2022 5:41 [place] [address] Ultrasound Report Signed Patient: HESHAM TAYLOR MR#: [id number] : 2000 Acct:[id number] Age/Sex: 22 / F ADM Date: 12/30/22 Loc: US Attending Dr: Kathie Roman Ordering Physician: Kathie Roman Date of Service: 12/30/22 Procedure(s): US OB anatomy Accession Number(s): [id number] cc: Kathie Roman; Physician,Non-Staff M.D. [place] [id number] Patient Name: HESHAM TAYLOR MRN: [id number] date: 2000 Sex: F Assigned Patient Location: Current Patient Location: Accession/Order Number: [id number] Exam Date: 12/30/2022 07:55 Report Date: 12/30/2022 [...] M.D. Signed By: 12/30/221743 DD/ 40 TD/TT: Learning Disabilities Teacher: Procedure Note Radiology, Radiologist, MD - 01/06/2023 The [place] [id number] Ultrasound Report Signed Patient: HESHAM TAYLOR AMR#: [id number] : 2000Acct:[id number] Age/Sex: 22 / FADM Date: 12/30/22 Loc: US Attending Dr: Kathie Roman Ordering Physician: Kathie Roman Date of Service: 12/30/22 Procedure(s): US OB anatomy Accession Number(s): [id number] cc: Kathie Roman; Physician,Non-Staff Ann-Marie The [address] [address] Patient Name: HESHAM TAYLOR MRN: [id number] date: 2000 Sex: F Assigned Patient Location: US Current Patient Location: US Accession/Order Number: [id number] Exam Date: 12/30/2022 07:55 Report Date: 12/30/2022 [...] Souza M.D. Signed By:12/30/221743 DD/ 40 TD/TT: Learning Disabilities Teacher: us Kathie [facility] Final Result documented in this encounter Visit Diagnoses Not on filedocumented in this encounter Care Teams Clinic Coordinator Relationship Specialty Start Date End Date Taisha Ortiz MD [address] [place], [place] [phone] PCP - General Family Medicine 05/03/23 Stephanei Sotelo NP [address] [place] [address] PCP - Carloz Eduardo 07/16/24 documented as of this encounter
--- OUTSIDE RECORDS SUMMARY | 2025-02-03 04:58 | XMS_ITS | Encounter Summary ---
Author Organization [facility] Address [address] [place] [address] Care Team Providers Care Dietary Clerk Name Role Phone Taisha Ortiz MD Primary Care Provider [phone] Stephanie Sotelo BILLBOARD POSTER HELPER Unavailable [phone] Encounter Details Date Type Department Care Team (Late st Contact Info) Description 09/24/2024 Abstract [facility] [address] [place] [address] [place] [id number] [place], [place] Social History Tobacco Use Types Packs/Day [...] often do you attend chur ch or gnosticist services? 1 to 4 times per year [...] Recorded Patient Health Questionnaire-2 Score 0 05/24/2023 [facility] - Occupational [...] PM EDT Routine [facility] T[facility] JAVIER [address] [facility] [place] [address] Kathie Lee PA [address] [facility] [place] [address] documented as of this encounter Visit Diagnoses Not on filedocumented in this encounter Care Teams Dietary Clerk Relationship Specialty Start Date End Date Taisha Ortiz MD [address] [facility] [place] [address] PCP - General Family Medicine 05/03/23 Stephanie Sotelo NP [address] [place] [address] PCP - [place] [employer] 07/16/24 documented as of this encounter
--- OUTSIDE RECORDS SUMMARY | 2025-02-03 04:58 | XMS_ITS | Clinical Summary ---
Author Organization [facility] Address [id number] [place] [address] Care Team Providers Care Order Filler Name Role Phone Unavailable Primary Care Provider Unavailabl e Allergies Active Allergy Reactions Criticality Noted Date Comments No Known Drug Allergies 05/29/2017 Medications [id number]-[id number]-ya lic-om3 25 mg iron-1 mg -400 mg combo pack Take by mouth. A ctive ferrous sulfate (HIGH POTENCY IRON) 27 mg iron tablet Take by mouth. Activ e rat488-anad-xl lic-om3 (DUET DHA WITH OMEGA-3) 25 mg [...] trimester 01/27/2023 04/12/2023 Vasa previa 01/27/2023 04/12/2023 Immunizations Immunization Administration Dates Next Due DTP [...] oz pur e alcohol) Social Connection and Isolation Panel Answer Date Recorded In a typical week, how many times do you talk on the phone with family, friends, or neighbors? More than three times a week 01/31/2021 How often do you get togethe r with friends or relatives? Three times a week 01/31/2021 How often do you attend [facility] or mandaeism services? Never 01/31/2021 Do you belong to [...] Answer Date Recorded Total Score 6 01/31/2021 [facility] - [...] Recorded Do you need help finding a [facility] and/or a training program? No [...] Procedure Name Priority Date/Time Associated Diagnosis Comments CHLAMYDIA/GC BY PCR ELISABETH SWAB Routine 11/09/2022 from Last 3 Months or Most Recently Relevant to Health Maintenance Results * Chlamydia/GC by PCR Elisabeth Swab (11/09/2022) Chlamydia Dna(Pcr) negative MANUALLY TRANSCRIBED RESULTS Gonorrhoeae Dna(Pcr) negative MANUALLY TRANSCRIBED RESULTS us Not In System Ref Prov MICROBIOLOGY - GENERAL OR DERABLES Final Result MANUALLY TRANSCRIBED RESULTS from Last 3 Months or Most Recently Relevant to Health Maintenance Insurance [employer]
--- OUTSIDE RECORDS SUMMARY | 2025-02-03 04:58 | XMS_ITS | Clinical Summary ---
Author Organization [facility] Address [address] [place] [address] Care Team Providers Care Eeg Technologist Name Role Phone Tasiha Pena MD Primary Care Provider Stephanie Sotelo VP [employer]NA[employer] Unavailable Allergies No known active allergies Medications Qdvxbwbl-Fzl-Ll- FA (PRE- PO) Take 1 each by [...] Resolved Date Obesity affecting in second trimester ([facility]) 01/27/2023 04/25/2023 Velamentous insertion of umb ilical cord in second trimester ([facility]) 01/27/2023 04/25/2023 Encounters Date Type Department Care Team Description 02/01/2025 Clinisync Result Encounter NOMS External Department Unsolicited Provider, Generic External Data 01/29/2025 1:50 PM EDT Routine [facility] Tj JAVIER [address] [place] [address] Kathie Lee PA Third trimester ([facility]); 38 weeks gestation of ([facility]) 01/29/2025 Bamboo flowsheet [facility] T[facility] JAV[facility] [address] [place] [address] Kathie Lee PA 01/25/2025 Clinisync Result Encounter NOMS External Department Unsolicited Provider, Generic External Data 01/23/2025 10:20 AM EDT Routine [facility] [address] [facility] [place] [address] Kendra Smith NP Third trimester ([facility]); 37 weeks gestation of ([facility]) 01/23/2025 Bamboo flowsheet [facility] [address] [facility] [place] [address] Kendra Smith NP 01/18/2025 Clinisync Result Encounter NOMS External Department Unsolicited Kendra Smith NP 01/14/2025 9:20 AM EDT Routine [facility] [address] [facility] [address] Kendra Smith NP Third trimester ([facility]); 36 weeks gestation of ([facility]); History of placental abnormality; Excessive growth affecting management of , antepartum, single or unspecified fetus ([facility]) 01/14/2025 9:00 AM EDT Ancillary Procedure [facility] [address] [facility] [place] [address] Excessive growth affecting management of , antepartum, single or unspecified fetus ([facility]) 01/14/2025 Clinisync Result Encounter NOMS External Department Unsolicited Provider, Generic External Data 01/06/2025 10:20 AM EDT Routine [facility] [address] [facility] [place] [address] Kathie Lee PA Third trimester ([facility]); 35 weeks gestation of ([facility]) 01/06/2025 Bamboo flowsheet [facility] [address] [facility] [address] Kathie Lee PA 12/24/2024 10:00 AM EDT Routine [facility] [address] [facility] [address] Rebeca Hidalgo, Third trimester ([facility]); 33 weeks gestation of ([facility]); History of placental abnormality; Excessive growth affecting management of , antepartum, single or unspecified fetus ([facility]) 12/24/2024 Bamboo flowsheet [facility] [place] [address] [facility] [address] Rebeca Hidalgo, 12/14/2024 Clinisync Result Encounter NOMS External Department Unsolicited Provider, Generic External Data 12/12/2024 10:10 AM EDT Routine [facility] [place] [facility] [address] [place] [address] Kathie Lee PA Third trimester ([facility]); 31 weeks gestation of ([facility]) 12/12/2024 Bamboo flowsheet [facility] [place] [address] [facility] [address] Kathie Lee PA 11/28/2024 8:30 AM EDT Routine [facility] [place] [facility] [place] [facility] [address] Rebeca Hidalgo, Third trimester ([facility]); 29 weeks gestation of ([facility]); History of placental abnormality; Excessive growth affecting management of in third trimester, single or unspecified fetus ([facility]) 11/28/2024 Bamboo flowsheet [facility] [address] [facility] [address] Rebeca Hidalgo, 11/16/2024 Clinisync Result Encounter NOMS External Department Unsolicited Provider, Generic External Data 11/14/2024 11:20 AM EDT Routine [facility] [place] [facility] [address] Kathie Lee PA Second trimester ([facility]); 27 weeks gestation of ([facility]) 11/14/2024 Bamboo flowsheet [facility] [address] [place] [address] [place] [address] Kathie Lee PA 11/09/2024 Travel from Last 3 Months Immunizations Immunization [...] How often do you attend chur or tenriism services? 1 to 4 times [...] Recorded Patient Health Questionnaire-2 Score 0 05/24/2023 [facility] - Occupational Stress [...] Pressure 138/82 01/29/2025 3:25 PM EDT Pulse 63 05/24/2023 2:05 PM EST Temperature - - Respiratory Rate 20 05/24/2023 2:05 PM EST Oxygen Saturation 96% 05/24/2023 2:05 PM EST Inhaled Oxygen Concentration - - Weight 105 kg (231 lb 1.9 oz) 01/29/2025 3:25 PM EDT Height 162.6 cm (5' 4 ) 11/21/2023 2:10 PM EDT Body Mass Index 39.67 11/21/2023 2:10 PM EDT Plan of Treatment Upcoming Encounters Date Type Department Care Team (Late st Contact Info) Description 02/05/2025 2:20 PM EDT Routine [facility] [address] [facility] [address] Kathie Lee PA [address] [facility] [place] [address] Health Maintenance Due Date Last Done Comments Influenza Vaccine (#1) 2024 02/01/2021 Procedures Procedure Name Priority Date/Time Associated Diagnosis Comments US OB BPP W NON-STRESS 02/01/2025 3:04 PM EDT POCT URINALYSIS DIPSTICK Routine 01/29/2025 2:19 PM EDT 38 weeks gestation of ([facility]) US OB BPP W NON-STRESS 01/25/2025 11:11 AM EDT POCT URINALYSIS DIPSTICK Routine 01/23/2025 10:29 AM EDT Third trimester ([facility]) US OB BPP W NON-STRESS 01/18/2025 12:13 PM EDT POCT URINALYSIS DIPSTICK Routine 01/14/2025 9:48 AM EDT Third trimester ([facility]) STREP GP B CULTURE+RFLX Routine 01/14/2025 9:33 AM EDT CULTURE, GROUP B STREP WITH SUSCEPTIBLITY Routine 01/14/2025 9:32 AM EDT Third trimester ([facility]) US OB FOLLOW UP TRANSABDOMINAL APPROACH Routine [...] Routine 11/28/2024 8:48 AM EDT Third trimester ([facility]) GLUCOSE 1 HOUR Routine 11/16/2024 10:06 AM EDT ALL CBC WITH AUTO DIFF Routine 10:06 AM EDT POCT URINALYSIS DIPSTICK Routine 11/14/2024 11:35 AM EDT Second trimester ([facility]) from Last 3 Months Results * US OB BPP W NON-STRESS (02/01/2025 3:04 PM EDT) Only the most recent of3 resultswithin the time period is included. Anatomical Region Laterality Modality Other 02/01/2025 3:04 PM EDT Narrative 02/01/2025 3:06 [place] [address] Ultrasound Report Signed Patient: HESHAM AVALOS MR#: [id number] : 2000 Acct:[id number] Age/Sex: 24 / F ADM Date: 02/01/25 Loc: US Attending Dr: Kendra Smith Ordering Physician: Kendra Smith Date of Service: 02/01/25 Procedure(s): US OB BPP w non-stress Accession Number(s): [id number] cc: Kendra Smith; TAISHA PENA The [place] [id number] Patient Name: HESHAM AVALOS MRN: [id number] date: 2000 Sex: F Assigned Patient Location: [facility] Current Patient Location: Accession/Order Number: [id number] Exam Date: 02/01/2025 10:10 Report Date: 02/01/2025 15:04 At the request of: KENDRA SMITH Procedure: US OB BPP w non-stress US OB BPP w non-stress 02/01/2025 10:38 AM SIGNS AND SYMPTOMS: EXCESSIVE GROWTH AFFECTING O36.63X0 PROTOCOL: Transabdominal sonographic imaging of the gravid uterus COMPARISON: None FINDINGS: Estimated age: 38 weeks 5 days heart rate: 142 bpm Amniotic fluid index: 19.78 cm with the deepest vertical pocket measuring 5.86 cm. Biophysical profile: breathing movements: 2/2 Gross body movements: 2/2 tone: 2/2 Amniotic fluid volume: 2/2 US/US OB BPP w non-stress IMPRESSION: Biophysical profile: 11/22 Impression dictated by: Wilfrido Atkinson M.D. 02/01/2025 3:04 PM Dictation Location: [place] [address] Electronically authenticated by: [id number] Y Date: 02/01/2025 15:04 Dictated By: Wilfrido Atkinson M.D. Signed By: 02/01/25 1506 DD/ 1504 TD/TT: Heavy Equipment Diesel Mechanic: Procedure Note Radiology, Radiologist, MD - 02/01/[address] [address] Ultrasound Report Signed Patient: HESHAM AVALOS AMR#: [id number] : 2000Acct:[id number] Age/Sex: 24 / FADM Date: 02/01/25 Loc: US Attending Dr: Kendra Smith Ordering Physician: Kendra Smith Date of Service: 02/01/25 Procedure(s): US OB BPP w non-stress Accession Number(s): [id number] cc: Kendra Smith; TAISHA PENA [address] [address] Patient Name: HESHAM AVALOS MRN: [facility]:[id number] date: 2000 Sex: F Assigned Patient Location: [facility] Current Patient Location: Accession/Order Number: [id number] Exam Date: 02/01/2025 10:10 Report Date: 02/01/2025 15:04 At the request of: KENDRA SMITH Procedure: US OB BPP w non-stress US OB BPP w non-stress 02/01/2025 10:38 AM SIGNS AND SYMPTOMS: EXCESSIVE GROWTH AFFECTING O36.63X0 PROTOCOL: Transabdominal sonographic imaging of the gravid uterus COMPARISON: None FINDINGS: Estimated age: 38 weeks 5 days heart rate: 142 bpm Amniotic fluid index: 19.78 cm with the deepest vertical pocket measuring5.86 cm. Biophysical profile: breathing movements: 2/2 Gross body movements: 2/2 tone: 2/2 Amniotic fluid volume: 2/2 US/US OB BPP w non-stress IMPRESSION: Biophysical profile: 11/22 Impression dictated by: Wilfrido tAkinson M.D. 02/01/2025 3:04 PM Dictation Location: [place] [address] Electronically authenticated by: [id number] Y Date: 5:04 Dictated By: Wilfrido Atkinson M.D. Signed By:02/01/25 1506 DD/ 1504 TD/TT: Heavy Equipment Diesel Mechanic: us Generic External Data Provider [facility] Final Result * (ABNORMAL) POCT urinalysis dipstick manually resulted (01/29/2025 2:19 PM EDT) Only the most recent of8 resultswithin the time period is included. Color, [...] TEST ENTER/EDIT OR DERABLES Final Result * STREP GP B CULTURE+RFLX (01/14/2025 9:33 AM EDT) [facility] STREP GP B CULTURE+RFLX Strep Gp B Culture+Rflx [facility] STREP GP B CULTURE+RFLX Negative [facility] STREP GP B CULTURE+RFLX Centers for Disease Control and Prevention (CDC) and [facility] STREP GP B CULTURE+RFLX [place] [employer] [facility] STREP [...] STREP GP B CULTURE+RFLX Performed at: [facility] STREP GP B CULTURE+RFLX [address], [place] [id number] [facility] STREP GP B CULTURE+RFLX Clinic Lpn: Andrade Curry PhD, Phone: [phone] [facility] 01/14/2025 9:33 AM EDT 01/15/2025 6:37 AM EDT Narrative [facility] - 01/19/2025 6:07 PM EDT us Generic External Data Provider LAB BLOOD ORDERAB LES Final Result Performing Organization Address [facility]/ZIP Co de Phone Number [facility] * CULTURE, GROUP B STREP WITH SUSCEPTIBLITY (01/14/2025 9:32 AM EDT) Swab 01/14/2025 9:32 AM EDT Kendra Smith NP LAB BLOOD ORDERABLES Final Re sult Performing Organization Address City/[facility] Co de Phone Number EXTERNAL LAB * US OB follow up transabdominal approach [...] EDT Narrative 12/14/2024 11:19 [place] [address] Ultrasound Report Signed Patient: HESHAM AVALOS MR#: [id number] : 2000 Acct:[id number] Age/Sex: 24 / F ADM Date: 12/14/24 Loc: US Attending Dr: Rebeca Hidalgo D.O. Ordering Physician: Rebeca Hidalgo D.O. Date of Service: 12/14/24 Procedure(s): US OB growth Accession Number(s): [id number] cc: Rebeca Hidalgo D.O.; TAISHA PENA The [place] [address] Patient Name: HESHAM AVALOS MRN: [id number] date: 2000 Sex: F Assigned Patient Location: US Current Patient Location: Accession/Order Number: [id number] Exam Date: 12/14/2024 09:50 Report Date: 12/14/2024 [...] Atkinson M.D. 12/14/2024 11:17 AM Dictation Location: [place] [address] Electronically authenticated by: [id number] Y Date: 12/14/2024 11:17 Dictated By: Wilfrido Atkinson M.D. Signed By: 12/14/24 1119 DD/ 1117 TD/TT: Heavy Equipment Diesel Mechanic: Procedure Note Radiology, Radiologist, MD - 12/14/2024 [place] [address] Ultrasound Report Signed Patient: HESHAM AVALOS AMR#: [id number] : 2000Acct:[id number] Age/Sex: 24 / FADM Date: 12/14/24 Loc: US Attending Dr: Rebeca Hidalgo D.O. Ordering Physician: Rebeca Hidalgo D.O. Date of Service: 12/14/24 Procedure(s): US OB growth Accession Number(s): [id number] cc: Rebeca Hidalgo D.O.; TAISHA PENA [place] [address] Patient Name: HESHAM AVALOS MRN: [id number] date: 2000 Sex: F Assigned Patient Location: US Current Patient Location: US Accession/Order Number: [id number] Exam Date: 12/14/2024 09:50 Report Date: 12/14/2024 [...] Atkinson M.D. 12/14/2024 11:17 AM Dictation Location: [email or web address] Electronically authenticated by: [id number] Y Date: 1:17 Dictated By: Wilfrido Atkinson M.D. Signed By:12/14/24 1119 DD/ 1117 TD/TT: Heavy Equipment Diesel Mechanic: Generic External Data Provider [facility] Final Result * GLUCOSE 1 HOUR (11/16/2024 10:06 AM EDT) GLUCOSE 1 HOUR 120 <130 mg/dL [facility] 11/16/2024 10:0 6 AM EDT 11/16/2024 10:07 AM EDT Narrative [facility] - 11/16/2024 10:45 AM EDT Rebeca Rocky DO LAB BLOOD ORDERABLES Final Resul t [facility] * (ABNORMAL) ALL CBC WITH AUTO DIFF [...] Rebeca Hidalgo DO [facility] Final Result [facility] from Last 3 Months Insurance [facility] Care Teams Eeg Technologist Relationship Specialty Start Date End Date Taisha Pena MD [address] [place], [place] [id number] PCP - General Family Medicine 05/03/23 Stephanie Sotelo NP [address] [place], [place] [id number] PCP - Carloz Eduardo 07/16/24
--- OUTSIDE RECORDS SUMMARY | 2025-02-03 04:58 | XMS_ITS | CCD ---
Author Organization [facility] Care Team Providers Care Central Office Operator Supervisor Name Role Phone DR DON HIDALGO Admitting [...] Unavailable ROCKY, Don R Referring Unavailable Ashleigh COAL CRUSHER OPERATOR, Stephanie Villagran Unavailable ROCKY, DON R [...] procedure, # 2 cap(s), Refills(s) 0, Pharmacy: [facility] [id number], 163, cm, 08/05/24 13:19:00 EDT, Height/Length Dosing, [...] mg iron tablet Take by mouth. Active Oxgvqm-QfCypf-Orkwc-FA-[place] 3 (Duet DHA 400) 25-1 & 400 MG misc (2 sources) Mhgfeu-RtXfbl-Iv tgl-AH-Ewcht 3 (Duet DHA 400) 25-1 & 400 MG misc Take by mouth. 0 Active Qqlezwuc-Gis-Of-FA (PRE-SIGIFREDO PO) (20 sources) take 1 dose by mouth once daily Kwfwbtuh-Vov-Mu-FA (PRE-SIGIFREDO PO) Take 1 each by mouth Daily Active Multivitamins (1 source) Start : 07-31 take 1 tablet by mouth once daily Multivitamins 1 tab(s), Oral, Daily, Refill(s) 0 Start Date: 07/31/24 Status: Ordered Repeat number: 1 qof729-udkl-wyafb-h m3 (DUET DHA WITH OMEGA-3) 25 mg iron-1 mg -400 mg combo pack (4 sources) xue264- jekf-rfevo-nz0 (DUET DHA WITH OMEGA-3) 25 mg iron-1 mg -400 mg combo pack Take by mouth. Active pux040- zhcs-nsgct-zj6 (DUET DHA WITH OMEGA-3) 25 mg iron-1 mg -400 mg combo pack Take by mouth. 0 Active umq290-kxxf-vpwum-f m3 25 mg iron-1 mg -400 mg combo pack (4 sources) eum555- llhd-jpdzq-gm1 25 mg iron-1 mg -400 mg combo pack Take by mouth. Active opa102- dbgt-iclie-xw8 25 mg iron-1 mg -400 mg combo [...] Test Name Value Interpretation Reference Range Facility OB BPP W NON-STRESS on 02-01-2025 [place] [address] Ultrasound Report Signed Patient: HESHAM AVALOS MR#: [id number] : 2000 Acct:[id number] Age/Sex: 24 / F ADM Date: 02/01/25 Loc: US Attending Dr: Britney Smith Ordering Physician: Britney Smith Date of Service: 02/01/25 Procedure(s): US OB BPP w non-stress Accession Number(s): [id number] cc: Britney Smith; TAISHA PENA [address] [address] Patient Name: HESHAM AVALOS MRN: [facility]:[id number] date: 2000 Sex: F Assigned Patient Location: [facility] Current Patient Location: Accession/Order Number: [id number] Exam Date: 02/01/2025 10:10 Report Date: 02/01/2025 15:04 At the request of: BRITNEY SMITH Procedure: [...] Atkinson M.D. 02/01/2025 3:04 PM Dictation Location: [place] [address] Electronically authenticated by: [id number] Y Date: 02/01/2025 15:04 Dictated By: Wilfrido Atkinson M.D. Signed By: 02/01/25 1506 DD/ 1504 TD/TT: Modeling Agent: [facility] Radiology, Radiologist, - 02/01/2025 [place] [address] Ultrasound Report Signed Patient: HESHAM AVALOS MR#: [id number] : 2000 Acct:[id number] Age/Sex: 24 / F ADM Date: 02/01/25 Loc: US Attending Dr: Britney Smith Ordering Physician: Britney Smith Date of Service: 02/01/25 Procedure(s): US OB BPP w non-stress Accession Number(s): [id number] cc: Britney Smith; TAISHA PENA [place] [id number] Patient Name: HESHAM AVALOS MRN: [facility]:[id number] date: 2000 Sex: F Assigned Patient Location: [facility] Current Patient Location: Accession/Order Number: [id number] Exam Date: 02/01/2025 10:10 Report Date: 02/01/2025 15:04 At the request of: BRITNEY SMITH Procedure: [...] Atkinson M.D. 02/01/2025 3:04 PM Dictation Location: [place] [address] Electronically authenticated by: [id number] Y Date: 02/01/2025 15:04 Dictated By: Wilfrido Atkinson M.D. Signed By: 02/01/25 1506 DD/ 1504 TD/TT: Modeling Agent: [facility] Radiology Study observation (narrative) [facility] US OB BPP W NON-STRESS Ordered By: Radiologist Radiology on 02-01-2025 [facility] Work Phone: Urinalysis macro (dipstick) panel (U)on 01-29-2025 Bilirubin, UA Negative Negative - 4(70) +++ mg/dL [facility] Blood, UA Negative Negative - 50 Eulogio/mcL [facility] Clarity, UA Clear [facility], UA Yellow [facility] e Glucose, UA Negative Negative - 2000(110) ++++ mg/dL [facility] Interpretation and review of laboratory results Abnormal [facility] Ketones, UA Positive Negative - 160(16) ++++ mg/dL [facility] Leukocytes, UA Negative Negative - 500+++ Rufina/mcL [facility] Nitrite, UA Negative Negative - Positive [facility] pH, UA 6.0 5 - 9 [facility] Protein, UA Positive Negative - 1999(20) ++++ mg/dL [facility] Spec Grav, UA 1.020 1 - 1.03 [facility] care Urobilinogen, UA 2.0 0.2 - 12 mg/dL [facility] US OB BPP W NON-STRESS on 01-25-2025 [place] [address] Ultrasound Report Signed Patient: HESHAM AVALOS MR#: [id number] : 2000 Acct:[id number] Age/Sex: 24 / F ADM Date: 01/25/25 Loc: US Attending Dr: Britney Smith Ordering Physician: Britney Smith Date of Service: 01/25/25 Procedure(s): US OB BPP w non-stress Accession Number(s): [id number] cc: Britney Smith; TAISHA PENA [place] [address] Patient Name: HESHAM AVALOS MRN: [facility]:[id number] date: 2000 Sex: F Assigned Patient Location: [facility] Current Patient Location: Accession/Order Number: [id number] Exam Date: 01/25/2025 10:07 Report Date: 01/25/2025 11:11 At the request of: BRITNEY SMITH Procedure: US OB BPP w non-stress Ultrasound biophysical profile INDICATION: Excessive growth Findings and impression: 11/22 score biophysical profile and ZEB measures 20.9 cm. heart rate 139 beats per minutes. Impression dictated by: Juan M Newman M.D. 01/25/2025 11:11 AM [facility] Electron[facility] authenticated by: [id number] Y Date: 01/25/2025 11:11 Dictated By: Juan M Newman M.D. Signed By: 01/25/25 1114 DD/ 1111 TD/TT: Modeling Agent: [facility] Radiology, Radiologist, - 01/25/2025 [place] [address] Ultrasound Report Signed Patient: HESHAM AVALOS MR#: [id number] : 2000 Acct:[id number] Age/Sex: 24 / F ADM Date: 01/25/25 Loc: US Attending Dr: Britney Smith Ordering Physician: Britney Smith Date of Service: 01/25/25 Procedure(s): US OB BPP w non-stress Accession Number(s): [id number] cc: Britney Smith; TAISHA PENA The [place] [id number] Patient Name: HESHAM AVALOS MRN: [facility]:[id number] date: 2000 Sex: F Assigned Patient Location: [facility] Current Patient Location: Accession/Order Number: [id number] Exam Date: 01/25/2025 10:07 Report Date: 01/25/2025 11:11 At the request of: BRITNEY SMITH Procedure: US OB BPP w non-stress Ultrasound biophysical profile INDICATION: Excessive growth Findings and impression: 11/22 score biophysical profile and ZEB measures 20.9 cm. heart rate 139 beats per minutes. Impression dictated by: Juan M Newman M.D. 01/25/2025 11:11 AM Dictation Location: [place] [address] Electronically authenticated by: [id number] Y Date: 01/25/2025 11:11 Dictated By: Juan M Newman M.D. Signed By: 01/25/25 111 DD/ 1111 TD/TT: Modeling Agent: [facility] Radiology Study observation (narrative) [facility] US OB BPP W NON-STRESS Ordered By: Radiologist Radiology on 01-25-2025 [facility] Work Phone: Urinalysis macro (dipstick) panel (U)on 01-23-2025 Bilirubin, UA Negative Negative - 4(70) +++ mg/dL [facility] Blood, UA Positive Negative - 50 Eulogio/mcL [facility] Comment on above: 3+ Clarity, UA Clear [facility] Color, UA Yellow [facility] Glucose, UA Negative Negative - 1999(110) ++++ mg/dL [facility] Interpretation and review of laboratory results Abnormal [facility] Ketones, UA Negative Negative - 160(16) ++++ mg/dL [facility] Leukocytes, UA Negative Negative - 500+++ Rufina/mcL [facility] Nitrite, UA Negative Negative - Positive [facility] pH, UA 6.5 5 - 9 [facility] Protein, UA Negative Negative - 1999(20) ++++ mg/dL [facility] Spec Grav, UA 1.02 1 - 1.03 [facility] Urobilinogen, UA 0.2 0.2 - 12 mg/dL [facility] STREP GP B CULTURE+RFLXon STREP GP B CULTURE+RFLX Strep Gp B Culture+Rflx [facility] STREP GP B CULTURE+RFLX Negative [facility] STREP GP B CULTURE+RFLX Centers for Disease Control and Prevention (CDC) and [facility] STREP GP B CULTURE+RFLX [place] Congress of Obstetricians and Gynecologists [facility] Healthcare STREP GP B CULTURE+RFLX (ACOG) guidelines for prevention of group B [facility] Healthcare STREP GP B CULTURE+RFLX streptococcal (GBS) disease specify co-collection of [facility] STREP GP B CULTURE+RFLX a vaginal and rectal swab specimen to maximize [facility] Healthcare STREP GP B CULTURE+RFLX sensitivity of GBS detection. Per the CDC and ACOG, [facility] Healthcare STREP GP B CULTURE+RFLX swabbing both the lower vagina and rectum [facility] STREP GP B CULTURE+RFLX substantially increases the yield of detection [facility] Healthcare STREP GP B CULTURE+RFLX compared with sampling the vagina alone. [facility] STREP GP B CULTURE+RFLX Penicillin G, ampicillin, or cefazolin are indicated [facility] STREP GP B CULTURE+RFLX for intrapartum prophylaxis of GBS [facility] STREP GP B CULTURE+RFLX colonization. Reflex susceptibility testing should be [facility] Healthcare STREP GP B CULTURE+RFLX performed prior to use of clindamycin only on GBS [facility] STREP GP B CULTURE+RFLX isolates from penicillin-allergic women who are [facility] Healthcare STREP GP B CULTURE+RFLX considered a high risk for anaphylaxis. Treatment with [facility] Healthcare STREP GP B CULTURE+RFLX vancomycin without additional testing is warranted if [facility] Healthcare STREP GP B CULTURE+RFLX resistance to clindamycin is noted. [facility] Healthcare STREP GP B CULTURE+RFLX Performed at: [facility] STREP GP B CULTURE+RFLX [address] [place], [place] [id number] [facility] STREP GP B CULTURE+RFLX Community Organizer: Andrade Curry PhD, Phone: [phone] [facility] US OB BPP W NON-STRESS on 01-18-2025 [place] [address] Ultrasound Report Signed Patient: HESAHM AVALOS MR#: [id number] : 2000 Acct:[id number] Age/Sex: 24 / F ADM Date: 01/18/25 Loc: US Attending Dr: Britney Smith Ordering Physician: Britney Smith Date of Service: 01/18/25 Procedure(s): US OB BPP w non-stress Accession Number(s): [id number] cc: Britney Smith; TAISHA PENA [place] [address] Patient Name: HESHAM AVALOS MRN: [facility]:[id number] date: 2000 Sex: F Assigned Patient Location: [facility] Current Patient Location: Accession/Order Number: [id number] Exam Date: 01/18/2025 10:14 Report Date: 01/18/2025 12:13 At the request of: BRITNEY SMITH Procedure: US OB BPP w non-stress Biophysical profile. Reason for exam: Excessive growth COMPARISON: 12/14/2024 TECHNIQUE: Transabdominal imaging of the gravid uterus was obtained. FINDINGS: The political director reports a BPP of 8 out of 8. ZEB is normal at 17.2 cm. heart rate 158 bpm. US/US OB BPP w non-stress IMPRESSION: BPP 8 out of 8. Impression dictated by: Wayne Murray Jr., D.O. 01/18/2025 12:13 PM Dictation Location: [facility] Electronically authenticated by: [id number] Y Date: 01/18/2025 12:13 Dictated By: Wayne Murray M.D. Signed By: 01/18/25 1216 DD/ 1213 TD/TT: Modeling Agent: [facility] Radiology, Radiologist, MD - 01/18/2025 [place] [address] Ultrasound Report Signed Patient: HESHAM AVALOS MR#: [id number] : 2000 Acct:[id number] Age/Sex: 24 / F ADM Date: 01/18/25 Loc: US Attending Dr: Britney Smith Ordering Physician: Britney Smith Date of Service: 01/18/25 Procedure(s): US OB BPP w non-stress Accession Number(s): [id number] cc: Britney Smith; TAISHA PENA [place] [id number] Patient Name: HESHAM AVALOS MRN: [facility]:[id number] date: 2000 Sex: F Assigned Patient Location: [facility] Current Patient Location: Accession/Order Number: [id number] Exam Date: 01/18/2025 10:14 Report Date: 01/18/2025 12:13 At the request of: BRITNEY SMITH Procedure: US OB BPP w non-stress Biophysical profile. Reason for exam: Excessive growth COMPARISON: 12/14/2024 TECHNIQUE: Transabdominal imaging of the gravid uterus was obtained. FINDINGS: The political director reports a BPP of 8 out of 8. ZEB is normal at 17.2 cm. heart rate 158 bpm. US/US OB BPP w non-stress IMPRESSION: BPP 8 out of 8. Impression dictated by: Wayne Murray Jr., D.O. 01/18/2025 12:13 PM Dictation Location: [facility] Electronically authenticated by: [id number] Y Date: 01/18/2025 12:13 Dictated By: Wayne Murray M.D. Signed By: 01/18/25 1216 DD/ 121 TD/TT: Modeling Agent: [facility] Radiology Study observation (narrative) [facility] US OB BPP W NON-STRESS Ordered By: Radiologist Radiology on 01-18-2025 [facility] Work Phone: US OB FOLLOW UP [...] UA Negative Negative - 4(70) +++ mg/dL [facility] Blood, UA Negative Negative - 50 Eulogio/mcL [facility] Healthcare Clarity, UA Clear [facility] Color, UA Yellow [facility] Glucose, UA Negative Negative - 1999(110) ++++ mg/dL [facility] Interpretation and review of laboratory results Abnormal [facility] Ketones, UA Negative Negative - 160(16) ++++ mg/dL [facility] Leukocytes, UA Negative Negative - 500+++ Rufina/mcL [facility] Nitrite, UA Negative Negative - Positive [facility] pH, UA 6 5 - 9 [facility] Protein, UA 1+ Negative - 1999(20) ++++ mg/dL [facility] Spec Grav, UA 1.02 1 - 1.03 [facility] Urobilinogen, UA 1.0 0.2 - 12 mg/dL [facility] Urinalysis macro (dipstick) panel (U)on 01-06-2025 Bilirubin, UA Positive Negative - 4(70) +++ mg/dL [facility] Comment on above: 1+ Blood, UA Negative Negative - 50 Eulogio/mcL [facility] Healthcare Clarity, UA Clear [facility] Color, UA Yellow [facility] Glucose, UA Negative Negative - 1999(110) ++++ mg/dL [facility] Interpretation and review of laboratory results Abnormal [facility] Ketones, UA Positive Negative - 160(16) ++++ mg/dL [facility] Healthcare Comment on above: Trace Leukocytes, UA Positive Negative - 500+++ Rufina/mcL [facility] Comment on above: 1+ Nitrite, UA Negative Negative - Positive [facility] pH, UA 6 5 - 9 [facility] Protein, UA Positive Negative - 1999(20) ++++ mg/dL [facility] Healthcare Comment on above: 1+ Spec Grav, UA 1.025 1 - 1.03 [facility] Urobilinogen, UA 0.2 0.2 - 12 mg/dL [facility] Urinalysis macro (dipstick) panel (U)on 12-24-2024 Bilirubin, UA Negative Negative - 4(70) +++ mg/dL [facility] Blood, UA Negative Negative - 50 Eulogio/mcL [facility] Healthcare Clarity, UA Clear [facility] Color, UA Yellow [facility] Glucose, UA Negative Negative - 1999(110) ++++ mg/dL [facility] Interpretation and review of laboratory results [facility] Ketones, UA Negative Negative - 160(16) ++++ mg/dL [facility] Leukocytes, UA Negative Negative - 500+++ Rufina/mcL [facility] Nitrite, UA Negative Negative - Positive [facility] pH, UA 6.5 5 - 9 [facility] Protein, UA 1+ Negative - 1999(20) ++++ mg/dL [facility] Spec Grav, UA 1.015 1 - 1.03 [facility] care Urobilinogen, UA 1.0 0.2 - 12 mg/dL [facility] US OB GROWTHon 12-14-2024 [place] [address] Ultrasound Report Signed Patient: HESHAM AVALOS MR#: [id number] : 2000 Acct:[id number] Age/Sex: 24 / F ADM Date: 12/14/24 Loc: US Attending Dr: Don Hidalgo D.O. Ordering Physician: Don Hidalgo D.O. Date of Service: 12/14/24 Procedure(s): US OB growth Accession Number(s): [id number] cc: Don Hidalgo D.O.; TAISHA PENA [place] [id number] Patient Name: HESHAM AVALOS MRN: [facility]:[id number] date: 2000 Sex: F Assigned Patient Location: US Current Patient Location: US Accession/Order Number: [id number] Exam Date: 12/14/2024 09:50 Report Date: 12/14/2024 [...] Atkinson M.D. 12/14/2024 11:17 AM Dictation Location: [facility] Electronically authenticated by: [id number] Y Date: 12/14/2024 11:17 Dictated By: Wilfrido Atkinson M.D. Signed By: 12/14/24 1119 DD/ 1117 TD/TT: Modeling Agent: [facility] Radiology, Radiologist, MD - 12/14/2024 [place] [address] Ultrasound Report Signed Patient: HESHAM AVALOS MR#: [id number] : 2000 Acct:[id number] Age/Sex: 24 / F ADM Date: 12/14/24 Loc: US Attending Dr: Don Hidalgo D.O. Ordering Physician: Don Hidalgo D.O. Date of Service: 12/14/24 Procedure(s): US OB growth Accession Number(s): [id number] cc: Don Hidalgo D.O.; TAISHA PENA [place] [id number] Patient Name: HESHAM AVALOS MRN: [facility]:[id number] date: 2000 Sex: F Assigned Patient Location: US Current Patient Location: US Accession/Order Number: [id number] Exam Date: 12/14/2024 09:50 Report Date: 12/14/2024 [...] Atkinson M.D. 12/14/2024 11:17 AM Dictation Location: [place] [address] Electronically authenticated by: [id number] Y Date: 12/14/2024 11:17 Dictated By: Wilfrido Atkinson M.D. Signed By: 12/14/24 1119 DD/ 1117 TD/TT: Modeling Agent: [facility] Radiology Study observation (narrative) [facility] OB GROWTHOrdered By: Nini munizogdoyle Radiology on 12-14-2024 [facility] Work Phone: Urinalysis macro (dipstick) panel (U)on 12-12-2024 Bilirubin, UA Negative Negative - 4(70) +++ mg/dL [facility] Blood, UA Negative Negative - 50 Eulogio/mcL [facility] Clarity, UA Clear [facility] re Color, UA Hattie [facility] e Glucose, UA Negative Negative - 1999(110) ++++ mg/dL [facility] Interpretation and review of laboratory results Abnormal [facility] Ketones, UA Negative Negative - 160(16) ++++ mg/dL [facility] Leukocytes, UA Positive Negative - 500+++ Rufina/mcL [facility] Comment on above: Trace Nitrite, UA Negative Negative - Positive [facility] pH, UA 6 5 - 9 [facility] e Protein, UA Positive Negative - 1999(20) ++++ mg/dL [facility] Comment on above: 1+ Spec Grav, UA 1.02 1 - 1.03 [facility] Urobilinogen, UA 0.2 0.2 - 12 mg/dL [facility] Urinalysis macro (dipstick) panel (U)on 11-28-2024 Bilirubin, UA 1+ Negative - 4(70) +++ mg/dL [facility] Blood, UA Negative Negative - 50 Eulogio/mcL [facility] Clarity, UA Clear [facility] re Color, UA Yellow [facility] Glucose, UA Negative Negative - 1999(110) ++++ mg/dL [facility] Interpretation and review of laboratory results Abnormal [facility] Ketones, UA Negative Negative - 160(16) ++++ mg/dL [facility] Leukocytes, UA 1+ Negative - 500+++ Rufina/mcL [facility] Nitrite, UA Negative Negative - Positive [facility] pH, UA 6 5 - 9 [facility] e Protein, UA 1+ Negative - 1999(20) ++++ mg/dL [facility] Spec Grav, UA 1.015 1 - 1.03 [facility] Urobilinogen, UA 1.0 0.2 - 12 mg/dL [facility] ALL CBC WITH AUTO DIFFon BASOPHILS ABSOLUTE AUTO 0 [facility] Basophils/100 WBC (Bld) 0.2 % 0.2 - 2.0 % [facility] Eosinophils/100 WBC (Bld) 0.2 % Low 0.9 - 7.0 % [facility] Erythrocyte distribution width (RBC) [Ratio] 13.7 % 11.0 - 15.0 % [facility] Hematocrit (Bld) [Volume fraction] 32.3 % Low 36.0 - 48.0 % [facility] Hemoglobin (Bld) [Mass/Vol] 10.6 g/dL Low 12.0 - 16.0 g/dL [facility] IMMATURE GRANULOCYTES ABS AUTO 0.04 High [facility] Immature granulocytes/100 WBC (Bld) 0.4 % 0.0 - 0.5 % [facility] Interpretation and review of laboratory results Abnormal [facility] LYMPHOCYTES ABSOLUTE AUTO 1.5 [facility] Lymphocytes/100 WBC (Bld) 16.2 % Low 20.5 - 60.0 % [facility] MCH (RBC) [Entitic mass] 30.9 pg 26.7 - 34.0 pg [facility] MCHC (RBC) [Mass/Vol] 32.8 g/dL 29.9 - 35.2 g/dL [facility] MCV (RBC) [Entitic vol] 94.2 fL 81.0 - 99.0 fL [facility] MONOCYTES ABSOLUTE AUTO 0.5 [facility] Monocytes/100 WBC (Bld) 5.8 % 1.7 - 12.0 % [facility] NEUTROPHILS ABSOLUTE AUTO 6.9 High [facility] Neutrophils/100 WBC (Bld) 77.2 % High 43.0 - 75.0 % [facility] Platelet mean volume (Bld) [Entitic vol] 10.1 fL 9.5 - 13.5 fL [facility] EO # 0 [facility] TB PLT 183 [facility] RBC 3.43 Low [facility] TB WBC 9 [facility] Urinalysis macro (dipstick) panel (U)on 11-14-2024 Bilirubin, UA Negative Negative - 4(70) +++ mg/dL [facility] Blood, UA Negative Negative - 50 Eulogio/mcL [facility] Clarity, UA Clear [facility] re Color, UA Yellow [facility] Glucose, UA Negative Negative - 1999(110) ++++ mg/dL [facility] Interpretation and review of laboratory results Abnormal [facility] Ketones, UA Negative Negative - 160(16) ++++ mg/dL [facility] Leukocytes, UA Positive Negative - 500+++ Rufina/mcL [facility] Comment on above: Small Nitrite, UA Negative Negative - Positive [facility] pH, UA 6.5 5 - 9 [facility] Protein, UA Positive Negative - 1999(20) ++++ mg/dL [facility] Comment on above: Small Spec Grav, UA 1.015 1 - 1.03 [facility] Urobilinogen, UA 0.2 0.2 - 12 mg/dL [facility] Urinalysis macro (dipstick) panel (U)on 10-17-2024 Bilirubin, UA Negative Negative - 4(70) +++ mg/dL [facility] Blood, UA Negative Negative - 50 Eulogio/mcL [facility] Clarity, UA Clear [facility] Color, UA Yellow [facility] Glucose, UA Negative Negative - 1999(110) ++++ mg/dL [facility] Interpretation and review of laboratory results Normal [facility] Ketones, UA Negative Negative - 160(16) ++++ mg/dL [facility] Leukocytes, UA Negative Negative - 500+++ Rufnia/mcL [facility] Nitrite, UA Negative Negative - Positive [facility] pH, UA 7 5 - 9 [facility] Protein, UA Negative Negative - 1999(20) ++++ mg/dL [facility] Spec Grav, UA 1.02 1 - 1.03 [facility] Urobilinogen, UA 0.2 0.2 - 12 mg/dL [facility] 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 How is this treated? Treatment for this condition depends on the cause of the condition and your symptoms. Treatment may include: ??? Lubricants, ointments, and creams. ??? Physical therapy. ??? Massage therapy. ??? Hormonal therapy. ??? Medicines to: ? Prevent or fight infection. ? Relieve pain. ? Help numb the area. ? Treat de (more content not included)... Normal [facility] Urology Office/Clinic Noteon 10-07-2024 Urology Office/Clinic [...] Only if needed [facility] [address] [place] [address] [phone] Additional Instructions: Patient Education Dyspareunia, Female Chichi [...] Seizure: Sister. Immunizations Vaccine Date Status SARSCoV2 mRNA(mdpgoivmh-xpfn-z ucros) vac 06/03/2021 Recorded SARS-CoV-2 (COVID-19) mRNA BNT-162b2 vax 05/13/2021 Recorded influenza virus vaccine, inactivated 02/01/2021 Recorded hepatitis B pediatric vaccine 10/29/2019 Recorded hepatitis B adult vaccine 05/14/2019 Recorded measles/mumps/rubella /varicella vaccine 04/11/2019 Recorded hepatitis B pediatric vaccine 04/11/2019 Recorded meningococcal conjugate vaccine 11/09/2017 Recorded poliovirus vaccine, inactivated 12/08/2004 Recorded measles/mumps/rubella virus vaccine 12/08/2004 Recorded diphtheria/pertussis, acel/tetanus ped (more content not included)... Normal [facility] Comment on above: Result Comment: Elec tronically Signed By: Darin RICHARD MD\.br\Date and Time Signed: 10/07/24 08:55 EDT\.br\Electronically Co-Signed By: Chichi Bautista.br\Date and Time Co-Signed: 10/07/24 08:53 EDT GLUCOSE 1 HOURon 09-18-2024 Glucose [Mass/Vol] 104 mg/dL NINF - 13 0 mg/dL [facility] Urinalysis macro (dipstick) panel (U)on 09-17-2024 Bilirubin, UA Negative Negative - 4(70) +++ mg/dL [facility] Blood, UA Negative Negative - 50 Eulogio/mcL [facility] Clarity, UA Clear [facility] Color, UA Yellow [facility] Glucose, UA Negative Negative - 1999(110) ++++ mg/dL [facility] Interpretation and review of laboratory results Abnormal [facility] Ketones, UA Positive Negative - 160(16) ++++ mg/dL [facility] Comment on above: 40mg/dL Leukocytes, UA Negative Negative - 500+++ Rufina/mcL [facility] Nitrite, UA Negative Negative - Positive [facility] pH, UA 6 5 - 9 [facility] Protein, UA Negative Negative - 1999(20) ++++ mg/dL [facility] Spec Grav, UA 1.015 1 - 1.03 [facility] Urobilinogen, UA 0.2 0.2 - 12 mg/dL [facility] Urinalysis macro (dipstick) panel (U)on 08-20-2024 Bilirubin, UA Positive Negative - 4(70) +++ mg/dL [facility] Comment on above: small Blood, UA Negative Negative - 50 Eulogio/mcL [facility] Clarity, UA Clear [facility]ca re Color, UA Yellow [facility] Glucose, UA Negative Negative - 1999(110) ++++ mg/dL [facility] Interpretation and review of laboratory results Abnormal [facility] Ketones, UA Positive Negative - 160(16) ++++ mg/dL [facility] Comment on above: 15mg/dL Leukocytes, UA Positive Negative - 500+++ Rufina/mcL [facility] Comment on above: small Nitrite, UA Negative Negative - Positive [facility] pH, UA 7.5 5 - 9 [facility] Protein, UA Positive Negative - 1999(20) ++++ mg/dL [facility] Comment on above: 100mg/dL Spec Grav, UA 1.015 1 - 1.03 [facility] Urobilinogen, UA 1.0 0.2 - 12 mg/dL [facility] Ambulatory Visit Summaryon 0 08-05-2024 [...] [facility] [address], [place] [address] [phone] Medications What How Much When Instructions Unchanged [...] including vitamins, herbs, eye drops, creams, and imuw-cyz-bfciwwb medicines. ??? Any problems you or family [...] tells you to take them. ??? Taking zeps-gdl-hdhxkez medicines, vitamins, herbs, and supplements. Tests You [...] (local ane (more content not included)... Normal [facility] Urology Office/Clinic Noteon 08-05-2024 Urology Office/Clinic [...] [facility] [address], [place] [address] [phone] Additional Instructions: schedule cystoscopy Patient Education Cystoscopy [...] failure: Grandparent. Hypertension: Grandparent. Seizure: Sister. Normal [facility] Comment on above: Result Comment: Elec tronically Signed By: Darin RICHARD MD\.br\Date and Time Signed: 08/05/24 13:46 EDT\.br\Electronically Co-Signed By: Chichi Bautista\.br\Date and Time Co-Signed: 08/05/24 13:44 EDT RECURRENT VAGINITIS (HTRX)on 07-24-2024 ATOPOBIUM VAGINAE 0 [facility] ATOPOBIUM VAGINAE Not detected [facility] BVAB 2,3 (BACTERIAL VAGINOSIS ASSOCIATED BACTERIA 2, 3); MOBILUNCUS SPP 0 [facility] BVAB 2,3 (BACTERIAL VAGINOSIS ASSOCIATED BACTERIA 2, 3); MOBILUNCUS SPP Not detected [facility] LIU ALBICANS, PARAPSILOSIS, TROPICALIS 0 [facility] Healthcare LIU ALBICANS, PARAPSILOSIS, TROPICALIS Not detected [facility] LIU GLABRATA 0 [facility] LIU GLABRATA Not detected [facility] LIU KRUSEI 0 [facility] LIU KRUSEI Not detected [facility] CHLAMYDIA TRACHOMATIS 0 [facility] CHLAMYDIA TRACHOMATIS Not detected [facility] GARDNERELLA VAGINALIS 0 [facility] GARDNERELLA VAGINALIS Not detected [facility] MEGASPHAERA (TYPES 1, 2) 0 [facility] MEGASPHAERA (TYPES 1, 2) Not detected [facility] MYCOPLASMA GENITALIUM 0 [facility] MYCOPLASMA GENITALIUM Not detected [facility] NEISSERIA GONORRHOEAE 0 [facility] NE[facility]ERIA GONORRHOEAE Not detected [facility] TRICHOMONAS VAGINALIS 0 [facility] TRICHOMONAS VAGINALIS Not detected [facility] Urinal[facility] macro (dipstick) panel (U)on 07-23-2024 Bilirubin, UA Negative Negative - 4(70) +++ mg/dL [facility] Blood, UA Negative Negative - 50 Eulogio/mcL [facility] Clarity, UA Clear [facility] Color, UA Yellow [facility] Glucose, UA Negative Negative - 2000(110) ++++ mg/dL [facility] Interpretation and review of laboratory results Abnormal [facility] Ketones, UA Positive Negative - 160(16) ++++ mg/dL [facility] Comment on above: trace Leukocytes, UA Negative Negative - 500+++ Rufina/mcL [facility] Nitrite, UA Negative Negative - Positive [facility] pH, UA 6.5 5 - 9 [facility] e Protein, UA Trace Negative - 2000(20) ++++ mg/dL [facility] Spec Grav, UA 1.03 1 - 1.03 [facility] Urobilinogen, UA 0.2 0.2 - 12 mg/dL [facility] Free Cell DNAOrdered B y: Pao Fu on 07-16-2024 [facility] BOX TESTon 07-08-2024 BOX TEST SENT OUT [facility] BOX1 [facility] e BOX2 07/08/24 [facility] Drug Screen, Urineon 025 Amphetamine/Methamph etamine Negative [facility] Barbiturates Negative [facility] Benzodiazepines Negative [facility] Cocaine Metabolite Negative [facility] Methadone Negative [facility] Opiates Negative [facility] Oxycodone Negative [facility] Phencyclidine Negative [facility] Thc Marijuana, Urine Negative [facility] HIV 1&2 AB/AG Screen (P24 AG )on 07-08-2024 HIV 1&2 AB/AG Non-Reactive [facility] Hepatitis B surface antigeno n 07-08-2024 Hepatitis B Surface Antigen Negative [facility] Hepatitis C(HCV) Ab w/ Refle x to PCRon 07-08-2024 HCV Ab Ql (S) Non-Reactive [facility] No Panel Informationon 07-08 [facility] e Rubella IGG immune statuson 07-08-2024 Rubella immune IgG IMMUNE [facility] Syphilis Total(Unknown Syphi lis Status)on 07-08-2024 Syphilis Non-Reactive [facility] Type and screenon 07-08-2024 Abo/Rh(D) Positive [facility] US OB TRANSVAGINALon 025 OB TRANSVAGINAL [...] II, MD, PHD at 05-Jul-2024 08:37:00 PM [facility] Normal Not Available Comment on above: Order Comment: US OB TRANSVAGINAL No LMP recorded. Cytology Cervical or vaginal smear or scraping studyon 11-21-2023 [facility] PAP ACOG PANEL 2: 21 to 29on 03-04-2022 . . Normal [facility] Comment on above: Performed By: #### [id number] #### [facility] [address] [id number] Anthony Newton Age Gdln ACOG Testing 21- Normal [facility] Comment on above: Performed By: #### [id number] #### [facility] [address] [place], [place] [address] Dr. Anthony Newton DIAGNOSIS: Comment Normal [facility] Comment on above: Result Comment: NEGA TIVE FOR INTRAEPITHELIAL LESION OR MALIGNANCY. THIS SPECIMEN WAS RESCREENED PART OF OUR CHEMIST STEROIDS PROGRAM. Performed By: #### [id number] #### [facility] [address] [place] [address] Dr. Anthony Newton Methodology: Comment Normal [facility] Comment on above: Result Comment: This liquid based ThinPrep(R) pap test was screened with the use of an image guided system. Performed By: #### [id number] #### [facility] [address] [place] [address] Dr. Anthony Newton Note: Comment Normal [facility] Comment on above: Result Comment: The Pap smear is a screening test designed to aid in the detection of premalignant and malignant conditions of the uterine cervix. It is not a diagnostic procedure and should not be used as the sole means of detecting cervical cancer. Both false-positive and false-negative reports do occur. . Performed By: #### [id number] #### [facility] [address] [place] [address] Dr. Anthony Newton Performed by: Comment Normal [facility] Comment on above: Result Comment: Lana Connell Supply Coordinator Performed By: #### [id number] #### [facility] [address] [place] [address] Dr. Anthony Newton QC reviewed by: Comment Normal [facility] Comment on above: Result Comment: Shae Maria, Supply Coordinator (ASCP) Performed By: #### [id number] #### [facility] [address] [place] [address] Dr. Anthony Newton Reflex Criteria: Comment Normal [facility] Comment on above: Result Comment: The HPV DNA reflex criteria were not met with this specimen result therefore, no HPV testing was performed. . Performed By: #### [id number] #### [facility] [address] [place] [address] Dr. Anthony Newton Specimen adequacy: Comment Normal [facility] Comment on above: Result Comment: Sati sfactory for evaluation. Endocervical and/or squamous metaplastic cells (endocervical component) are present. Performed By: #### [id number] #### [facility] [address] [place] [address] Dr. Anthony Newton Lab - Toxicology Resultson 0 6-21-2019 Lab - Toxicology Results [id number]. 00OTGTIFF [facility] Outside Recordson 10-04-2018 Outside Records [id number]. 00OT[address] [facility] Triage Industrialon 10-05-19 Drug Screen Complete Collected [facility] Comment on above: Performed By: #### [id number] #### [facility] (DEFAULT) [address] [place] [address] [id number] ED Clinical Summaryon 2018 ED Clinical Summary [facility] ? Urgent Care [address] [place] [address] [id number] Clinical Summary PERSON INFORMATION Name: HESHAM NEELY PAYAL Age: 18 Years Sex: FEMALE : 00 MRN: Acct#: Visit Reason: Medical screening exam; PHYSICAL PRE EMPLOYMENT/ [employer]IVERVIEW Arrival: 10/03/18 16:20:33 Discharge: 10/03/18 16:50:00 LOS: 000 00:30 Check In: 10/03/18 16:20:33 Checkout: 10/03/18 16:50:00 Address: [address] [place] [id number] PCP: PROVIDER INFORMATION Provider Role Assigned Unassigned [...] INFORMATION Instructions: Follow-Up: DIAGNOSIS: Patient Understands: Comment: [facility] ED Patient Summaryon 019 ED Patient Summary [facility] ? Urgent Care [address] [place] [address] [phone] PATIENT DISCHARGE INSTRUCTIONS Patient Information Name: HESHAM NEELY PAYAL Age: 18 Years Date of : 00 [facility]: [id number] Reason For Visit: Medical screening exam; PHYSICAL PRE EMPLOYMENT/ [employer]ERV[employer] Arrival Time: 10/03/18 16:20:33 Primary Care Physician: Attending Physician: Paulino Padilla Comment: Patient Education Medication Information: The exam and treatment you received today in the [facility] Emergency Department were for an urgent problem and are not intended as complete care. It is important for you to follow up with a doctor, nurse practitioner, or physician?s post production assistant for ongoing care. If your symptoms [...] can reach you if necessary. [facility] Emergency Department has provided you with a complete list of medications post discharge. Please inform your leather carver/provider of your visit and for further instruction on these medications. Any specific questions regarding your chronic medications and dosages should be discussed with your primary care physician(s) and/or pharmacist. Visit Information Visit Diagnosis: Diagnoses This Visit Medical screening exam ([id number]) If you received any narcotics, sedation, or [...] sign any legal documents Reason for Visit: [place] physical Allergies: Substance Reaction Symptoms Type Comments [...] for Disease Control and Prevention December 2013 [facility] Vital Signs Date Time Vital Sign Value Performing Clinician Sole rodriguez 01-29-2025 15:25-0400 Body mass index (BMI) [Ratio] 39.67 kg/m2 Kathie COCHRAN Work Phone: [facility] 01-29-2025 15:25-0400 Body weight 104.83 kg Kathie COCHRAN Work Phone: [facility] 01-29-2025 15:25-0400 Diastolic blood pressure 82 mm[Hg] Kathie COCHRAN Work Phone: [facility] 01-29-2025 15:25-0400 Systolic blood pressure 138 mm[Hg] Kathie COCHRAN Work Phone: [facility] 01-23-2025 10:22-0400 Body mass index (BMI) [Ratio] 39.82 kg/m2 Britney Smith NP Work Phone: [facility] 01-23-2025 10:22-0400 Body weight 105.23 kg Britney Smith NP Work Phone: [facility] 01-23-2025 10:22-0400 Diastolic blood pressure 72 mm[Hg] Britney Luis COAL CRUSHER OPERATOR Work Phone: [facility] 01-23-2025 10:22-0400 Systolic blood pressure 124 mm[Hg] Britney Luis COAL CRUSHER OPERATOR Work Phone: [facility] 01-14-2025 09:32-0400 Body mass index (BMI) [Ratio] 39.48 kg/m2 Britney Luis COAL CRUSHER OPERATOR Work Phone: [facility] 01-14-2025 09:32-0400 Body weight 104.33 kg Britney Luis COAL CRUSHER OPERATOR Work Phone: [facility] 01-14-2025 09:32-0400 Diastolic blood pressure 68 mm[Hg] Britney Luis COAL CRUSHER OPERATOR Work Phone: [facility] 01-14-2025 09:32-0400 Systolic blood pressure 122 mm[Hg] Britney Luis COAL CRUSHER OPERATOR Work Phone: [facility] 01-06-2025 10:44-0400 Body mass index (BMI) [Ratio] 39.16 kg/m2 Kathie Merr[place] PA Work Phone: [facility] 01-06-2025 10:44-0400 Body weight 103.48 kg Kathie [place] PA Work Phone: [facility] 01-06-2025 10:44-0400 Diastolic blood pressure 66 mm[Hg] Kathie [place] PA Work Phone: [facility] 01-06-2025 10:44-0400 Systolic blood pressure 122 mm[Hg] Kathie Jseus PA Work Phone: [facility] 12-24-2024 10:07-0400 Body mass index (BMI) [Ratio] 39.31 kg/m2 Don Rocky DO Work Phone: [facility] 12-24-2024 10:07-0400 Body weight 103.87 kg Don Rocky DO Work Phone: [facility] 12-24-2024 10:07-0400 Diastolic blood pressure 70 mm[Hg] Don Rocky DO Work Phone: [facility] 12-24-2024 10:07-0400 Systolic blood pressure 124 mm[Hg] Don Rocky DO Work Phone: [facility] 12-12-2024 10:28-0400 Body mass index (BMI) [Ratio] 38.96 kg/m2 Kathie Merritt[place] PA Work Phone: [facility] 12-12-2024 10:28-0400 Body weight 102.97 kg Kathie Jeuss PA Work Phone: [facility] 12-12-2024 10:28-0400 Diastolic blood pressure 70 mm[Hg] Kathie Jesus PA Work Phone: [facility] 12-12-2024 10:28-0400 Systolic blood pressure 130 mm[Hg] Kathie [place] PA Work Phone: [facility] 11-28-2024 08:48-0400 Body mass index (BMI) [Ratio] 38.62 kg/m2 Don Rocky DO Work Phone: [facility] 11-28-2024 08:48-0400 Body weight 102.06 kg Don Rocky DO Work Phone: [facility] 11-28-2024 08:48-0400 Diastolic blood pressure 74 mm[Hg] Don Rocky DO Work Phone: [facility] 11-28-2024 08:48-0400 Systolic blood pressure 118 mm[Hg] Don Rocky DO Work Phone: [facility] 11-14-2024 11:22-0400 Body mass index (BMI) [Ratio] 38.88 kg/m2 Kathie Merritt[place] PA Work Phone: [facility] 11-14-2024 11:22-0400 Body weight 102.74 kg Kathie [place] PA Work Phone: [facility] 11-14-2024 11:22-0400 Diastolic blood pressure 64 mm[Hg] Kathie [place] PA Work Phone: [facility] 11-14-2024 11:22-0400 Systolic blood pressure 122 mm[Hg] Kathie COCHRAN Work Phone: [facility] 10-17-2024 08:10-0400 Body mass index (BMI) [Ratio] 38.66 kg/m2 Don Rocky DO Work Phone: [facility] 10-17-2024 08:10-0400 Body weight 102.17 kg Don Rocky DO Work Phone: [facility] 10-17-2024 08:10-0400 Diastolic blood pressure 58 mm[Hg] Don Rocky DO Work Phone: [facility] 10-17-2024 08:10-0400 Systolic blood pressure 114 mm[Hg] Don Rocky DO Work Phone: [facility] 09-23-2024 11:59-0400 Body height 162.6 cm Cintia Allen MD Work Phone: [facility] 09-23-2024 11:59-0400 Body mass index (BMI) [Ratio] 38.04 kg/m2 Cintia Allen MD Work Phone: [facility] 09-23-2024 11:59-0400 Body weight 100.52 kg Cintia Allen MD Work Phone: [facility] 09-23-2024 11:59-0400 Diastolic blood pressure 75 mm[Hg] Cintia Allen MD Work Phone: [facility] 09-23-2024 11:59-0400 Heart rate 90 /min Cintia Allen MD Work Phone: [facility] 09-23-2024 11:59-0400 Systolic blood pressure 119 mm[Hg] Cintia Allen MD Work Phone: [facility] 09-17-2024 13:49-0400 Body mass index (BMI) [Ratio] 38.28 kg/m2 Kathie Jesus PA Work Phone: [facility] 09-17-2024 13:49-0400 Body weight 101.15 kg Kathie COCHRAN Work Phone: [facility] 09-17-2024 13:49-0400 Diastolic blood pressure 78 mm[Hg] Kathie Roman PA Work Phone: [facility] 09-17-2024 13:49-0400 Systolic blood pressure 124 mm[Hg] Kathie Roman PA Work Phone: [facility] 08-20-2024 10:54-0400 Body mass index (BMI) [Ratio] 37.59 kg/m2 Don Rocky DO Work Phone: [facility] 08-20-2024 10:54-0400 Body weight 99.34 kg Don Rocky DO Work Phone: [facility] 08-20-2024 10:54-0400 Diastolic blood pressure 84 mm[Hg] Don Rocky DO Work Phone: [facility] 08-20-2024 10:54-0400 Systolic blood pressure 126 mm[Hg] Don Rocky DO Work Phone: [facility] 07-23-2024 12:54-0400 Body mass index (BMI) [Ratio] 38.28 kg/m2 Don Rocky DO Work Phone: [facility] 07-23-2024 12:54-0400 Body weight 101.15 kg Don Rocky DO Work Phone: [facility] 07-23-2024 12:54-0400 Diastolic blood pressure 80 mm[Hg] Don Rocky DO Work Phone: [facility] 07-23-2024 12:54-0400 Systolic blood pressure 120 mm[Hg] Don Rocky DO Work Phone: [facility] 05-24-2023 14:05-0500 Body height 162.6 cm Stephanie Sotelo NP Work Phone: [facility] 05-24-2023 14:05-0500 Body mass index (BMI) [Ratio] 34.57 kg/m2 Stephanie Blancopatrick COAL CRUSHER OPERATOR Work Phone: [facility] 05-24-2023 14:05-0500 Body weight 91.35 kg Stephanie Blancopatrick COAL CRUSHER OPERATOR Work Phone: [facility] 05-24-2023 14:05-0500 Diastolic blood pressure 74 mm[Hg] Stephanie Sotelo COAL CRUSHER OPERATOR Work Phone: [facility] 05-24-2023 14:05-0500 Heart rate 63 /min Stephanie Sotelo COAL CRUSHER OPERATOR Work Phone: [facility] 05-24-2023 14:05-0500 Respiratory rate 20 /min Stephanie Blancopatrick COAL CRUSHER OPERATOR Work Phone: [facility] 05-24-2023 14:05-0500 SaO2% (BldA) [Mass fraction] 96 % Stephanie Whitlocktrick COAL CRUSHER OPERATOR Work Phone: [facility] 05-24-2023 14:05-0500 Systolic blood pressure 138 mm[Hg] Stephanie Blancopatrick COAL CRUSHER OPERATOR Work Phone: [facility] 04-12-2023 15:05-0500 Body height 162.6 cm Daniella Reina MD Work Phone: [facility] 04-12-2023 15:05-0500 Body mass index (BMI) [Ratio] 37.93 kg/m2 Daniella Reina MD Work Phone: [facility] 04-12-2023 15:05-0500 Body weight 100.25 kg Daniella Reina MD Work Phone: [facility] 04-12-2023 15:05-0500 Diastolic blood pressure 76 mm[Hg] Daniella Reina MD Work Phone: [facility] 04-12-2023 15:05-0500 Heart rate 96 /min Daniella Reina MD Work Phone: [facility] 04-12-2023 15:05-0500 Systolic blood pressure 115 mm[Hg] Daniella Reina MD Work Phone: [facility] Encounters Encounter Date Encounter Type Care Provider Facility Start: 02-01-2025 End: 02-01-2025 Clinisync Result Encounter Generic External Data Provider [facility] Unsolicited Start: 02-01-2025 End: 02-01-2025 Clinisync Result Encounter Generic External Data Provider [facility] External [facility] Unsolicited Start: 01-29-2025 End: 01-29-2025 ambulatory KATHIE ROMAN Not Available Start: 01-29-2025 End: 01-29-2025 Bamboo flowsheet Kathie Roman PA Work Phone: [facility] Start: 01-29-2025 End: 01-29-2025 Bamboo flowsheet Kathie COCHRAN Work Phone: [facility] Start: 01-29-2025 End: 01-29-2025 flow sheet Kathie COCHRAN Work Phone: [facility] Comment on above: Third trimester preg bria ([facility]); 38 weeks gestation of ([facility]) Start: 01-25-2025 End: 01-25-2025 Clinisync Result Encounter Generic External Data Provider [facility] Unsolicited Start: 01-25-2025 End: 01-25-2025 Clinisync Result Encounter Generic External Data Provider [facility] External [facility] Unsolicited Start: 01-23-2025 End: 01-23-2025 Bamboo flowsheet Britney Smith NP Work Phone: [facility] Start: 01-23-2025 End: 01-23-2025 Bamboo flowsheet Britney Smith COAL CRUSHER OPERATOR Work Phone: [facility] Start: 01-23-2025 End: 01-23-2025 flow sheet Britney Smith COAL CRUSHER OPERATOR Work Phone: [facility] Comment on above: Third trimester preg bria (HHS-HCC); 37 weeks gestation of ([facility]) Start: 01-23-2025 End: 01-23-2025 ambulatory BRITNEY SMITH [...] Comment on above: Third trimester preg bria ([facility]); 36 weeks gestation of ([facility]); History of placental abnormality; Excessive growth affecting management of , antepartum, single or unspecified fetus ([facility]) Start: 01-14-2025 End: 01-14-2025 ambulatory BRITNEY SMITH Not Available Start: 01-06-2025 End: 01-06-2025 Bamboo flowsheet Kathie COCHRAN Work Phone: [facility] Start: 01-06-2025 End: 01-06-2025 Bamboo flowsheet Kathie COCHRAN Work Phone: [facility] Start: 01-06-2025 End: 01-06-2025 flow sheet Kathie COCHRAN Work Phone: [facility] Comment on above: Third trimester preg bria ([facility]); 35 weeks gestation of ([facility]) Start: 01-06-2025 End: 01-06-2025 ambulatory KATHIE ROMAN Not Available Start: 12-24-2024 End: 12-24-2024 Bamboo flowsheet Don Rocky DO Work Phone: [facility] Start: 12-24-2024 End: 12-24-2024 Bamboo flowsheet Don Rocky DO Work Phone: [facility] Start: 12-24-2024 End: 12-24-2024 flow sheet Don Rocky DO Work Phone: [facility] Comment on above: Third trimester preg bria ([facility]); 33 weeks gestation of ([facility]); History of placental abnormality; Excessive growth affecting management of , antepartum, single or unspecified fetus ([facility]) Start: 12-24-2024 End: 12-24-2024 ambulatory [...] flow sheet Kathie COCHRAN Work Phone: [facility] Comment on above: Third trimester preg bria ([facility]); 31 weeks gestation of ([facility]) Start: 12-12-2024 End: 12-12-2024 ambulatory KATHIE ROMAN Not Available Start: 11-28-2024 End: 11-28-2024 Bamboo flowsheet Don Rocky DO Work Phone: [facility] Start: 11-28-2024 End: 11-28-2024 Bamboo flowsheet Don Rocky DO Work Phone: [facility] Start: 11-28-2024 End: 11-28-2024 flow sheet Don Rocky DO Work Phone: [facility] Comment on above: Third trimester preg bria ([facility]); 29 weeks gestation of ([facility]); History of placental abnormality; Excessive growth affecting management of in third trimester, single or unspecified fetus ([facility]) Start: 11-28-2024 End: 11-28-2024 ambulatory DON ROCKY [...] sheet Kathie COCHRAN Work Phone: [facility] Comment on above: Second trimester pre gnancy ([facility]); 27 weeks gestation of ([facility]) Start: 11-14-2024 End: 11-14-2024 ambulatory KATHIE ROMAN Not Available Start: 10-24-2024 End: 10-24-2024 ambulatory DON R ROCKY [facility] Start: 10-17-2024 End: 10-17-2024 Bamboo flowsheet Don Rocky DO Work Phone: [facility] Start: 10-17-2024 End: 10-17-2024 Bamboo flowsheet Don Rocky DO Work Phone: [facility] Start: 10-17-2024 End: 10-17-2024 flow sheet Don Rocky DO Work Phone: [facility] Comment on above: Second trimester pre gnancy ([facility]); 23 weeks gestation of ([facility]); Diabetes mellitus screening Start: 10-17-2024 End: 10-17-2024 ambulatory DON ROCKY Not Available Start: 10-07-2024 End: 10-07-2024 ambulatory Darin RICHARD Facility:[facility] Start: 10-07-2024 End: 10-07-2024 Patient encounter procedure Darin RICHARD [facility] Start: 09-23-2024 End: 09-23-2024 Office consultation new/estab patient 40 min Cintia Allen MD Work Phone: [facility] Comment on above: Obesity affecting pr egnancy in second trimester, unspecified obesity type (Primary Dx) Start: 09-23-2024 End: 09-23-2024 Orders Only Floresitakaden Hernandez [facility] Comment on above: Polyhydramnios affec [...] Start: 08-05-2024 End: 08-05-2024 ambulatory Darin RICHARD Facility:[facility] Start: 08-02-2024 End: 08-02-2024 Chart abstracting Cintia Allen MD Work Phone: [facility] Start: 07-25-2024 ambulatory Facility:[facility] Start: 07-23-2024 [...] cyst Start: 07-23-2024 End: 07-23-2024 ambulatory DON HIDALGO Not Available Start: 07-08-2024 End: 07-08-2024 Clinisync Result Encounter Don Hidalgo DO Work Phone: [facility] Unsolicited Start: 07-08-2024 End: 07-08-2024 Clinisync Result Encounter Don Hidalgo DO Work Phone: [facility] Unsolicited Start: 07-05-2024 End: 07-05-2024 ambulatory DON HIDALGO Not Available Start: 05-24-2023 Bamboo flowsheet Stephanie calabresetrichoang COAL CRUSHER OPERATOR Work Phone: [facility] Start: 05-24-2023 Bamboo flowsheet Stephanie damonpatrick COAL CRUSHER OPERATOR Work Phone: [facility] Start: 05-24-2023 End: 05-24-2023 Patient encounter status Stephanie Whitlocktrick COAL CRUSHER OPERATOR Work Phone: [facility] Work Phone: Start: 05-24-2023 End: 05-24-2023 Periodic preventive med est patient 18-39 yrs Stephanie Sotelo COAL CRUSHER OPERATOR Work Phone: [facility] Comment on above: Encounter for [facility] ss examination (Primary Dx); Anemia, unspecified type Start: 04-12-2023 End: 04-12-2023 Office outpatient visit 25 minutes Daniella Reina MD Work Phone: [facility] [place] Comment on above: 35 weeks gestation o f (Primary Dx); Polyhydramnios affecting Start: 02-24-2022 End: 02-24-[address] DON HIDALGO Facility: Procedures Date Procedure Procedure Detail Performing Clinician Start: 02-01-2025 US OB BPP W NON-STRESS Generic External Data Provider Start: 01-29-2025 Urnls dip stick/tabl et rgnt non-auto w/o micrscp Kathie COCHRAN Work Phone: Start: 01-25-2025 US OB BPP W NON-STRESS Generic External Data Provider Start: 01-23-2025 Urnls dip stick/tabl et rgnt non-auto w/o micrscp Britney Smith COAL CRUSHER OPERATOR Work Phone: Start: 01-18-2025 US OB BPP W NON-STRESS Britneydylan Smith COAL CRUSHER OPERATOR Work Phone: Start: 01-14-2025 Urnls dip stick/tabl et rgnt non-auto w/o micrscp Britney Smith COAL CRUSHER OPERATOR Work Phone: Start: 01-14-2025 STREP GP [...] Ref Prov Start: 07-08-2024 BOX TEST Don Redd o DO Work Phone: Start: 11-21-2023 Cytp [...] DTaP,Tdap and Td Vaccines (6 - Tdap) [facility] Start: 11-09-2025 Screening for malign ant neoplasm [facility]ix [facility] Start: 09-23-2025 Adult BMI Screening [facility] Start: 09-23-2025 Tobacco Screening [facility] Start: 09-23-2025 End: 09-23-2025 US MFM with or without consult US MFM with or without consult Imaging Routine Polyhydramnios affecting Low-lying placenta Placenta previa in second trimester Velamentous insertion of umbilical cord in second trimester Vasa previa, single or unspecified fetus History of hemorrhage, currently in second trimester Expected: 09/23/2025 (Approximate), Expires: 09/23/2025 [employer] Work Phone: Comment on above: Expected: 09/23/2025 (Approximate), Expires: 09/23/2025 Start: 02-05-2025 End: 02-05-2025 Patient encounter procedure 02/05/2025 2:20 PM EDT Routine CONY JAVIER [address] [place] [phone] Kathie Roman PA [address] [place] [address] CONY JAVIER Start: 01-29-2025 End: 01-29-2025 Patient encounter procedure 01/29/2025 1:50 PM EDT Routine [facility] [address] [place] [phone] Kathie oRman PA [address] [place] [address] [facility] Start: 01-23-2025 End: 01-23-2025 Patient encounter procedure CONY JAVIER Comment on above: Arrived Start: 01-14-2025 End: 01-14-2026 CULTURE, GROUP B STREP WITH SUSCEPTIBLITY CULTURE, GROUP B STREP WITH SUSCEPTIBLITY Lab Routine Third trimester ([facility]) Expected: 01/14/2025 (Approximate), Expires: 01/14/2026 [facility] Work Phone: Comment on above: Expected: 01/14/2025 (Approximate), Expires: 01/14/2026 Start: 01-14-2025 End: 07-14-2025 US biophysical profile w non stress test US biophysical profile w non stress test Imaging Routine Third trimester ([facility]) 36 weeks gestation of ([facility]) History of placental abnormality Excessive growth affecting management of , antepartum, single or unspecified fetus ([facility]) Expected: 01/14/2025 (Approximate), Expires: 07/14/2025 [facility] Comment on above: Expected: 01/14/2025 (Approximate), Expires: 07/14/2025 Start: 01-14-2025 End: 01-14-2025 Patient encounter procedure 01/14/2025 9:20 AM EDT Routine CONY JAVIER [address] [place] [phone] Britney Smith, COAL CRUSHER OPERATOR [address] [place] [phone] [facility] Start: 01-14-2025 End: 01-14-2025 Professional / ancillary services management 01/14/2025 9:00 AM EDT Ancillary Procedure CONY JAVIER [address] [place] [phone] [facility] Start: 01-06-2025 End: 01-06-2025 Patient encounter procedure [facility] Comment on above: Arrived Start: 12-24-2024 End: 04-25-2025 US for US OB follow up transabdominal approach Imaging Routine Excessive growth affecting management of , antepartum, single or unspecified fetus ([facility]) Expected: 12/24/2024, Expires: 04/25/2025 [facility] Work Phone: Comment on above: Expected: 12/24/2024 , Expires: 04/25/2025 Start: 12-24-2024 End: 12-24-2024 Patient encounter procedure [facility] Comment on above: Arrived Start: 12-16-2024 Influenza vaccination [facility] Start: 12-12-2024 End: 12-12-2024 Patient encounter procedure 12/12/2024 10:10 AM EDT Routine [facility] [address] [place] [phone] Kathie Roman PA [address] [facility] [address] [place] [address] Arrived [facility] Comment on above: Arrived Start: 11-28-2024 End: 03-30-2025 US for US OB follow up transabdominal approach Imaging Routine Third trimester ([facility]) History of placental abnormality Excessive growth affecting management of in third trimester, single or unspecified fetus ([facility]) Expected: 11/28/2024, Expires: 03/30/2025 [facility] Work Phone: Comment on above: Expected: 11/28/2024 , Expires: 03/30/2025 Start: 11-28-2024 End: 11-28-2024 Patient encounter procedure [facility] Comment on above: Arrived Start: 11-26-2024 End: 11-26-2024 Patient encounter procedure 11/26/2024 3:00 PM EDT Office Visit [facility] [address] [place] [phone] Don Hidalgo DO [address] [place] [address] [facility] Start: 11-14-2024 End: 11-14-2024 Patient encounter procedure [facility] Comment on above: Arrived Start: 10-24-2024 End: 10-24-2024 Patient encounter procedure 10/24/2024 1:00 PM EDT Appointment [facility] [address] [place] [phone] [facility] [place] Start: 10-17-2024 End: 10-17-2025 CBC panel - Blood by Automated count CBC Lab Routine Diabetes mellitus screening Expected: 10/17/2024 (Approximate), Expires: 10/17/2025 [facility] Work Phone: Comment on above: Expected: 10/17/2024 (Approximate), Expires: 10/17/2025 Start: 10-17-2024 End: 10-17-2025 Measurement of glucose 1 hour after glucose challenge for glucose tolerance test Glucose tolerance, 1 hour Lab Routine Diabetes mellitus screening Expected: 10/17/2024 (Approximate), Expires: 10/17/2025 [facility] Comment on above: Expected: 10/17/2024 (Approximate), Expires: 10/17/2025 Start: 10-17-2024 End: 10-17-2024 Patient encounter procedure 10/17/2024 10:10 AM EDT Routine [facility] [address] [place] [phone] Don Hidalgo, DO [address] [place] [address] [facility] Start: 10-17-2024 End: 10-17-2024 Patient encounter procedure 10/17/2024 8:10 AM EDT Routine [facility] [address] [place] [phone] Don Hidalgo, DO [address] [place] [address] Arrived [facility] Comment on above: Arrived Start: 09-23-2024 End: 09-23-2024 Patient encounter procedure [facility] Start: 09-17-2024 End: 09-17-2024 Patient encounter procedure 09/17/2024 1:30 PM EDT Routine [facility] [address] [place] [phone] Kathie Roman PA [address] [place] [address] [facility] Start: 08-20-2024 End: 10-20-2024 Alpha fetoprotein, maternal Alpha fetoprotein, maternal Lab Routine Second trimester 15 weeks gestation of Expected: 08/20/2024 (Approximate), Expires: 10/20/2024 [facility] Work Phone: Comment on above: Expected: 08/20/2024 (Approximate), Expires: 10/20/2024 Start: 08-20-2024 End: 08-20-2025 Measurement of glucose 1 hour after glucose challenge for glucose tolerance test Glucose tolerance, 1 hour Lab Routine Diabetes mellitus screening Expected: 08/20/2024 (Approximate), Expires: 08/20/2025 [facility] Comment on above: Expected: 08/20/2024 (Approximate), Expires: 08/20/2025 Start: 08-20-2024 End: 08-20-2024 Patient encounter procedure 08/20/2024 10:20 AM EDT Routine [facility] [address] [place] [phone] Don Hidalgo DO [address] [place], [place] [phone] [facility] Start: 08-05-2024 End: 08-05-2024 Patient encounter procedure 08/05/2024 2:10 PM EDT Routine [facility] [address] [place] [phone] Don Hidalgo DO [address] [facility] [place] [address] [facility] Start: 04-12-2024 Adult BMI Screening Adult BMI Screen ing [facility] Start: 04-12-2024 Tobacco Screening Tobacco Screening [facility] Start: 12-17-2023 COVID-19 Vaccine ( season) COVID-19 Vaccine ( season) [facility] Start: 12-17-2023 Influenza vaccination Influenza Vacc ine (#1) [facility] Start: 11-10-2023 Screening for Chlamy annabella trachomatis Chlamydia Screening [facility] Start: 10-15-2023 Influenza vaccination Influenza Vacc ine (#1) [facility] Comment on above: Postponed from 12/16 (Patient Refused) Start: 06-07-2023 End: 06-07-2023 ambulatory 06/07/2023 10:30 AM EST Visit [facility] [address] [place] [phone] Kathie Roman PA [address] [facility] [address] [place], [place] [phone] [facility] Start: 05-24-2023 End: 05-24-2024 CBC W Auto Differential panel - Blood CBC and differential Lab Routine Encounter for wellness examination Anemia, unspecified type Expected: 05/24/2023 (Approximate), Expires: 05/24/2024 [facility] Comment on above: Expected: 05/24/2023 (Approximate), Expires: 05/24/2024 Start: 05-24-2023 End: 05-24-2024 Comprehensive metabolic 2000 panel - Serum or Plasma Comprehensive metabolic panel Lab Routine Encounter for wellness examination Anemia, unspecified type Expected: 05/24/2023 (Approximate), Expires: 05/24/2024 [facility] Work Phone: Comment on above: Expected: 05/24/2023 (Approximate), Expires: 05/24/2024 Start: 12-16-2022 COVID-19 Vaccine ( season) COVID-19 Vaccine ( season) [facility] Start: 12-16-2022 Influenza vaccination N [facility] Start: 01-31-2022 Depression Screening Depression Scre [facility] Start: 2018 Adult BMI Follow Up Plan Adult BMI Follow Up Plan [facility] Start: 2012 Depression Screening Depression Scre [facility] CHLAMYDIA TRACHOMATI S (GENITO/STI) CHLAMYDIA TRACHOMATIS (GENITO/STI) Lab Routine Vaginal discharge Ordered: 07/23/2024 [facility] Comment on above: Ordered: 07/23/2024 Neisseria gonorrhoea e DNA [Presence] in Unspecified specimen by BOONE with probe detection Neisseria gonorrhea DNA probe, direct Lab Routine Vaginal discharge Ordered: 07/23/2024 [facility] Comment on above: Ordered: 07/23/2024 SURESWAB(R) ADVANCED VAGINITIS PLUS, TMA SURESWAB(R) ADVANCED VAGINITIS PLUS, TMA Pathology and Cytology Routine Vaginal discharge Ordered: 07/23/2024 [facility] Work Phone: Comment on above: Ordered: 07/23/2024 Immunizations Immunization Date Immunization Notes Care Provider Bronwyn alexander 06-03-2021 SARS-CoV-2 mRNA (xrtcuwsfirp-udlb-xgjud se) vaccine Darin RICHARD [facility] 05-13-2021 SARS-CoV-2 (COVID-19 ) mRNA BNT-162b2 vax Darin RICHARD [facility] 02-01-2021 Seasonal, quadrivale nt, recombinant, injectable influenza vaccine, preservative free Stephanie Sotelo NP Work Phone: [facility] 02-01-2021 influenza virus vaccine, unspecified formulation Daniella Reina MD Work Phone: [facility] 12-19-2020 diphtheria, tetanus toxoids and pertussis vaccine Daniella Reina MD Work Phone: [facility] 10-29-2019 hepatitis B vaccine, pediatric or pediatric/adolescent dosage Daniella Reina MD Work Phone: [facility] 05-14-2019 hepatitis B vaccine, adult dosage Daniella Reina MD Work Phone: [facility] 04-11-2019 hepatitis B vaccine, pediatric or pediatric/adolescent dosage Daniella Reina MD Work Phone: [facility] 04-11-2019 measles, mumps, rubella, and varicella virus vaccine Daniella Reina MD Work Phone: [facility] 11-09-2017 meningococcal ACWY vaccine, unspecified formulation Darin RICHARD [facility] 11-09-2017 meningococcal oligosaccharide (groups A, C, Y and W-135) diphtheria toxoid conjugate vaccine (MCV4O) Daniella Reina MD Work Phone: [facility] 12-08-2004 diphtheria, tetanus toxoids and acellular pertussis vaccine Daniella Reina MD Work Phone: [facility] 12-08-2004 measles, mumps and rubella virus vaccine Daniella Reina MD Work Phone: [facility] 12-08-2004 poliovirus vaccine, inactivated Daniella Reina MD Work Phone: [facility] 12-08-2004 poliovirus vaccine, unspecified formulation Darin RICHARD [facility] 09-28-2001 measles, mumps and rubella virus vaccine Daniella Reina MD Work Phone: [facility] 03-23-2001 diphtheria, tetanus toxoids and acellular pertussis vaccine, unspecified formulation Daniella Reina MD Work Phone: [facility] 03-23-2001 DTaP, unspecified formulation Darin RICHARD [facility] 03-23-2001 haemophilus influenz ae type b conjugate and Hepatitis B vaccine Daniella Reina MD Work Phone: [facility] 03-23-2001 poliovirus vaccine, inactivated Daniella Reina MD Work Phone: [facility] 03-23-2001 poliovirus vaccine, unspecified formulation Darin RICHARD [facility] 01-12-2001 diphtheria, tetanus toxoids and acellular pertussis vaccine, unspecified formulation Daniella Reina MD Work Phone: [facility] 01-12-2001 DTaP, unspecified formulation Darin RICHARD [facility] 01-12-2001 haemophilus influenz ae type b vaccine, HbOC conjugate Daniella Reina MD Work Phone: [facility] 01-12-2001 poliovirus vaccine, inactivated Daniella Reina MD Work Phone: [facility] 01-12-2001 poliovirus vaccine, unspecified formulation Darin RICHARD [facility] 2000 diphtheria, tetanus toxoids and acellular pertussis vaccine, unspecified formulation Daniella Reina MD Work Phone: [facility] 2000 DTaP, unspecified formulation Darin RICHARD [facility] 2000 haemophilus influenz ae type b conjugate and Hepatitis B vaccine Daniella Reina MD Work Phone: [facility] 2000 poliovirus vaccine, inactivated Daniella Reina MD Work Phone: [facility] 2000 poliovirus vaccine, unspecified formulation Darin RICHARD [facility] 2000 hepatitis B vaccine, pediatric or pediatric/adolescent dosage Daniella Reina MD Work Phone: [facility] NEGATED: Highlighted row has not occurred!04-11-2019 influenza, injectable, quadrivalent, preservative free Daniella Reina MD Work Phone: [facility] Comment on above: Deferred: Patient de cision Payers Date Payer Category Payer Private Health Insurance [id number] 2022 [facility] BCBS [id number] 2022 [facility] Managed Care - PPO ANTHEM [id number] 2022 Unknown [id number] 2021 Unknown [id number] 2000 Unknown [id number] 2.16.840.1.117217.3.579. 2.593 2000 Unknown [id number] 2.16.840.1.099606.3.579. 2.727 2000 Unknown [id number] 2.16.840.1.036604.3.579. 2.1286 2000 Unknown [id number] 2.16.840.1.361920.3.579. 2.128 2000 Unknown [id number] 2.16.840.1.650727.3.579. 2.727 2000 Unknown [id number] 2.16.840.1.841611.3.579. 2.727 2000 Unknown [id number] 2.16.840.1.246210.3.579. 2.128 2000 Unknown [id number] 2.16.840.1.392755.3.579. 2.125 2000 Unknown [id number] 2.16.840.1.182043.3.579. 2.1258 2000 Unknown [id number] 2.16.840.1.730653.3.579. 2.1259 2000 Unknown [id number] 2.16840.1.649774.3.579. 2.125 2000 Unknown [id number] 2.16.840.1.261971.3.579. 2.125 2000 Unknown [id number] 2.16.840.1.554562.3.579. 2.125 2000 Unknown [id number] 2.16.840.1.457193.3.579. 2.125 2000 Unknown [id number] 2.16.840.1.593956.3.579. 2.1258 2000 Unknown [id number] 2.16.840.1.973090.3.579. 2.1259 2000 Unknown [id number] 2.16.840.1.246689.3.579. 2.9 2000 Unknown [id number] 2.16.840.1.911689.3.579. 2.1259 2000 Unknown [id number] 2.16.840.1.145226.3.579. 2.9 2000 Unknown [id number] 2.16.840.1.611278.3.579. 2.1259 2000 Unknown [id number] 2.16.840.1.060691.3.579. 2.9 2000 Unknown [id number] 2.16.840.1.620900.3.579. 2.1259 1959 Unknown [id number] Social History Date Type Detail Facility Start: 11-08-2022 End: 10-07-2024 Tobacco smoking status [facility] Never smoked tobacco [facility] Start: 11-08-2022 End: 04-12-2023 Tobacco use and exposure Smokeless tobacco non-user [facility] Start: 04-12-2023 End: 04-18-2023 Alcohol intake Lifetime non-drinker (finding) [facility] Start: 05-17-2023 End: 05-24-2023 History of [...] drink containing alcohol? 2-4 times a month [facility] How many standard drinks containing alcohol do you have on a typical day? 3 or 4 [facility] How often do you hav e 6 or more drinks on 1 occasion? Less than monthly [facility] Start: 06-29-2022 How hard is it for y ou to pay for the very basics like food, housing, medical care, and heating Not hard at all [facility] Do you feel stress - tense, restless, nervous, or anxious, or unable to sleep at night because your mind is troubled all the time - these days [OSQ] Not at all [facility] (I/We) worried wheth er (my/our) food would run out before (I/we) got money to buy more. Never true [facility] Start: 08-15-2022 [facility] Start: 2000 Sex Assigned At Female [facility] Start: 10-07-2022 Gender identity Identifies as female gender (finding) [facility] Start: 10-07-2022 Sexual orientation Heterosexual (fin laura) [facility] Start: 05-24-2023 End: 01-29-2025 Alcohol intake Ex-drinker (finding) [facility] Are you now , , , , never or living with a partner? Living with partner [facility] How hard is it for y ou to pay for the very basics like food, housing, medical care, and heating Not very hard [facility] Do you feel stress - tense, restless, nervous, or anxious, or unable to sleep at night because your mind is troubled all the time - these days [OSQ] Very much [facility] Start: 01-31-2021 Education 21 [facility] Start: 11-18-2014 Sex Female (finding) [facility] Sexual Orientation [facility] NEGATED: Highlighted rowStart: NINF History of tobacco use Passive smoker [facility] Medical Equipment Procedure Code Equipment Code Equipment Origin al Text Equipment Identifier Dates Check blood suga r 4-5 times daily, fasting and 1 hour after meals. Use as directed. Dispense per insurance preference. [id number] Start: 04-12-2023 1 strip by miscellaneous route in the morning and 1 strip at noon and 1 strip in the evening and 1 strip before bedtime. Check blood sugar 4-5 times daily, fasting and 1 hour after meals. Use as directed. Dispense per insurance preference.. [id number] Start: 04-12-2023 Clinical Notes 04-12-2023 to 01-29-2025 [...] Gluconate (IRON 27 PO) 1 each, Daily Dbbnfpoz-Rue-Qs-FA (PRE- PO) 1 each, Daily ALLERGIES Allergies[1] PROBLEMS Active Ambulatory Problems Diagnosis Date Noted History of placental abnormality 12/24/2024 Resolved Ambulatory Problems Diagnosis Date Noted Obesity affecting in second trimester ([facility]) 01/27/2023 Velamentous insertion of umbilical cord in second trimester ([facility]) 01/27/2023 Past Medical History: Diagnosis Date 6 weeks follow-up ([facility]) HISTORY PAST MEDICAL HISTORY SOCIAL HISTORY Medical [...] ASSESSMENT & PLAN ICD-10-CM 1. Third trimester ([facility]) Z34.93 2. 38 weeks gestation of ([facility]) Z3A.38 POCT urinalysis dipstick manually resulted Return [...] Medical History: Diagnosis Date 6 weeks follow-up ([facility]) [3] Family History Problem Relation Name Age of Onset Hypertension Maternal Grandmother Fior Diabetes Maternal Grandmother Fior Cancer Maternal Grandfather Fior Heart failure Maternal Grandfather Fior Cancer Paternal Grandfather Rajat Seizures Sister Nicole [4] Past Surgical History: Procedure Laterality Date MOUTH SURGERY 2018 MYRINGOTOMY W/ TUBES 2002 documented in this encounter [facility] 01-23-2025 History of Presen t illness Narrative Reason for Appointment: Patient ID: Hesham Avalos is a 24 y.o. female who presents for Routine Visit Patient presents today for Return OB appointment. MEDICATIONS Current Outpatient Medications Medication Instructions Ferrous Gluconate (IRON 27 PO) 1 each, Daily Xqigtbxa-Edz-Le-FA (PRE- PO) 1 each, Daily ALLERGIES No Known Allergies PROBLEMS Active Ambulatory Problems Diagnosis Date Noted History of placental abnormality 12/24/2024 Resolved Ambulatory Problems Diagnosis Date Noted Obesity affecting in second trimester ([facility]) 01/27/2023 Velamentous insertion of umbilical cord in second trimester ([facility]) 01/27/2023 Past Medical History: Diagnosis Date 6 weeks follow-up ([facility]) HISTORY PAST MEDICAL HISTORY SOCIAL HISTORY Past Medical History: Diagnosis Date 6 weeks follow-up ([facility]) Social History Tobacco Use Smoking status: [...] nursing note reviewed. Exam conducted with a vulcanizing machine operator present. Vitals: Estimated body mass index is 39.82 kg/m as calculated from the following: Height as of 11/21/23: 5' 4 . Weight as of this encounter: 232 lb. BP: 124/72 Patient's last menstrual period was 05/06/2024. ASSESSMENT & PLAN ICD-10-CM 1. Third trimester ([facility]) Z34.93 POCT urinalysis dipstick manually resulted 2. 37 weeks gestation of ([facility]) Z3A.37 Return OB: Patient presents today for [...] week for routine OB appointment. Documented by Britnye Smith NP on behalf of: Britney Smith NP documented in this encounter [facility] 01-14-2025 History of Presen t illness Narrative Reason for Appointment: Patient ID: Hesham Avalos is a 24 y.o. female who presents for Routine Visit Patient presents today for Return OB appointment. MEDICATIONS Current Outpatient Medications Medication Instructions Ferrous Gluconate (IRON 27 PO) 1 each, Daily Ammzvfmb-Ktz-Yq-FA (PRE-SIGIFREDO PO) 1 each, Daily ALLERGIES No Known Allergies PROBLEMS Active Ambulatory Problems Diagnosis Date Noted History of placental abnormality 12/24/2024 Resolved Ambulatory Problems Diagnosis Date Noted Obesity affecting in second trimester ([facility]) 01/27/2023 Velamentous insertion of umbilical cord in second trimester ([facility]) 01/27/2023 Past Medical History: Diagnosis Date 6 weeks follow-up ([facility]) HISTORY PAST MEDICAL HISTORY SOCIAL HISTORY Past Medical History: Diagnosis Date 6 weeks follow-up ([facility]) Social History Tobacco Use Smoking status: [...] nursing note reviewed. Exam conducted with a vulcanizing machine operator present. Vitals: Estimated body mass index is 39.48 kg/m as calculated from the following: Height as of 11/21/23: 5' 4 . Weight as of this encounter: 230 lb. BP: 122/68 Patient's last menstrual period was 05/06/2024. ASSESSMENT & PLAN ICD-10-CM 1. Third trimester ([facility]) Z34.93 POCT urinalysis dipstick manually resulted CULTURE, GROUP B STREP WITH SUSCEPTIBLITY CULTURE, GROUP B STREP WITH SUSCEPTIBLITY 2. 36 weeks gestation of ([facility]) Z3A.36 Patient is doing well but [...] Britney Smith NP documented in this encounter [facility] 01-06-2025 History of Presen t illness Narrative Reason for Appointment: Patient ID: Hesham Avalos is a 24 y.o. female who presents for Routine Visit Patient presents today for Return OB appointment. MEDICATIONS Current Outpatient Medications Medication Instructions Ferrous Gluconate (IRON 27 PO) 1 each, Daily Utoambmu-Avv-Za-FA (PRE- PO) 1 each, Daily ALLERGIES No Known Allergies PROBLEMS Active Ambulatory Problems Diagnosis Date Noted History of placental abnormality 12/24/2024 Resolved Ambulatory Problems Diagnosis Date Noted Obesity affecting in second trimester ([facility]) 01/27/2023 Velamentous insertion of umbilical cord in second trimester ([facility]) 01/27/2023 Past Medical History: Diagnosis Date 6 weeks follow-up ([facility]) HISTORY PAST MEDICAL HISTORY SOCIAL HISTORY Past Medical History: Diagnosis Date 6 weeks follow-up ([facility]) Social History Tobacco Use Smoking status: [...] ASSESSMENT & PLAN ICD-10-CM 1. Third trimester ([facility]) Z34.93 POCT urinalysis dipstick manually resulted 2. 35 weeks gestation of ([facility]) Z3A.35 Return OB: Patient presents today for [...] of: DIMAS Cormier documented in this encounter [facility] 12-24-2024 History of Presen t illness Narrative Reason for Appointment: Patient ID: Hesham Avalos is a 24 y.o. female who presents for Routine Visit Patient presents today for Return OB appointment. MEDICATIONS Current Outpatient Medications Medication Instructions Ferrous Gluconate (IRON 27 PO) 1 each, Daily Mncnymnv-Gng-Rl-FA (PRE- PO) 1 each, Daily ALLERGIES No Known Allergies PROBLEMS Active Ambulatory Problems Diagnosis Date Noted History of placental abnormality 12/24/2024 Resolved Ambulatory Problems Diagnosis Date Noted Obesity affecting in second trimester ([facility]) 01/27/2023 Velamentous insertion of umbilical cord in second trimester ([facility]) 01/27/2023 Past Medical History: Diagnosis Date 6 weeks follow-up ([facility]) HISTORY PAST MEDICAL HISTORY SOCIAL HISTORY Past Medical History: Diagnosis Date 6 weeks follow-up ([facility]) Social History Tobacco Use Smoking status: [...] nursing note reviewed. Exam conducted with a vulcanizing machine operator present. Vitals: Estimated body mass index is 39.31 kg/m as calculated from the following: Height as of 11/21/23: 5' 4 . Weight as of this encounter: 229 lb. BP: 124/70 Patient's last menstrual period was 05/06/2024. ASSESSMENT & PLAN ICD-10-CM 1. Third trimester ([facility]) Z34.93 POCT urinalysis dipstick manually resulted 2. 33 weeks gestation of ([facility]) Z3A.33 3. History of placental abnormality Z87.59 [...] Don Hidalgo DO documented in this encounter [facility] 12-12-2024 History of Presen t illness Narrative Reason for Appointment: Patient ID: Hesham Avalos is a 24 y.o. female who presents for Routine Visit Patient presents today for Return OB appointment. MEDICATIONS Current Outpatient Medications Medication Instructions Ferrous Gluconate (IRON 27 PO) 1 each, Daily Ywlmstqq-Fds-Jh-FA (PRE-SIGIFREDO PO) 1 each, Daily ALLERGIES No Known Allergies PROBLEMS Active Ambulatory Problems Diagnosis Date Noted No Active Ambulatory Problems Resolved Ambulatory Problems Diagnosis Date Noted Obesity affecting in second trimester ([facility]) 01/27/2023 Velamentous insertion of umbilical cord in second trimester ([facility]) 01/27/2023 Past Medical History: Diagnosis Date 6 weeks follow-up ([facility]) HISTORY PAST MEDICAL HISTORY SOCIAL HISTORY Past Medical History: Diagnosis Date 6 weeks follow-up ([facility]) Social History Tobacco Use Smoking status: [...] calculated from the following: Height as of 11/20/24: 5' 4 . Weight as of this encounter: 227 lb. BP: 130/70 Patient's last menstrual period was 05/06/2024. ASSESSMENT & PLAN ICD-10-CM 1. Third trimester ([facility]) Z34.93 POCT urinalysis dipstick manually resulted 2. 31 weeks gestation of ([facility]) Z3A.31 Return OB: Patient presents today for [...] of: DIMAS Cormier documented in this encounter [facility] 11-28-2024 History of Presen t illness Narrative Reason for Appointment: Patient ID: Hesham Avalos is a 24 y.o. female who presents for Routine Visit Patient presents today for Return OB appointment. MEDICATIONS Current Outpatient Medications Medication Instructions Ferrous Gluconate (IRON 27 PO) 1 each, Daily Zrgaohrz-Lei-Pe-FA (PRE- PO) 1 each, Daily ALLERGIES No Known Allergies PROBLEMS Active Ambulatory Problems Diagnosis Date Noted No Active Ambulatory Problems Resolved Ambulatory Problems Diagnosis Date Noted Obesity affecting in second trimester ([facility]) 01/27/2023 Velamentous insertion of umbilical cord in second trimester ([facility]) 01/27/2023 Past Medical History: Diagnosis Date 6 weeks follow-up ([facility]) HISTORY PAST MEDICAL HISTORY SOCIAL HISTORY Past Medical History: Diagnosis Date 6 weeks follow-up ([facility]) Social History Tobacco Use Smoking status: [...] nursing note reviewed. Exam conducted with a vulcanizing machine operator present. Vitals: Estimated body mass index is 38.62 kg/m as calculated from the following: Height as of 11/21/23: 5' 4 . Weight as of this encounter: 225 lb. BP: 118/74 Patient's last menstrual period was 05/06/2024. ASSESSMENT & PLAN ICD-10-CM 1. Third trimester ([facility]) Z34.93 POCT urinalysis dipstick manually resulted 2. 29 weeks gestation of ([facility]) Z3A.29 Patient presents today for a routine [...] Don Hidalgo DO documented in this encounter [facility] 11-14-2024 History of Presen t illness Narrative Reason for Appointment: Patient ID: Hesham Avalos is a 24 y.o. female who presents for Routine Visit Patient presents today for Return OB appointment. MEDICATIONS Current Outpatient Medications Medication Instructions Ferrous Gluconate (IRON 27 PO) 1 each, Daily Ssvpsijm-Jge-Bq-FA (PRE-SIGIFREDO PO) 1 each, Daily ALLERGIES No Known Allergies PROBLEMS Active Ambulatory Problems Diagnosis Date Noted No Active Ambulatory Problems Resolved Ambulatory Problems Diagnosis Date Noted Obesity affecting in second trimester ([facility]) 01/27/2023 Velamentous insertion of umbilical cord in second trimester ([facility]) 01/27/2023 Past Medical History: Diagnosis Date 6 weeks follow-up ([facility]) HISTORY PAST MEDICAL HISTORY SOCIAL HISTORY Past Medical History: Diagnosis Date 6 weeks follow-up ([facility]) Social History Tobacco Use Smoking status: [...] ASSESSMENT & PLAN ICD-10-CM 1. Second trimester ([facility]) Z34.92 POCT urinalysis dipstick manually resulted 2. 27 weeks gestation of ([facility]) Z3A.27 Return OB: Patient presents today for [...] of: DIMAS Cormier documented in this encounter [facility] 10-17-2024 History of Presen t illness Narrative Reason for Appointment: Patient ID: Hesham Avalos is a 24 y.o. female who presents for Routine Visit Patient presents today for Return OB appointment. MEDICATIONS Current Outpatient Medications Medication Instructions Ferrous Gluconate (IRON 27 PO) 1 each, Daily Qjvgpqno-Hdl-Vl-FA (PRE- PO) 1 each, Daily ALLERGIES No Known Allergies PROBLEMS Active Ambulatory Problems Diagnosis Date Noted No Active Ambulatory Problems Resolved Ambulatory Problems Diagnosis Date Noted Obesity affecting in second trimester ([facility]) 01/27/2023 Velamentous insertion of umbilical cord in second trimester ([facility]) 01/27/2023 Past Medical History: Diagnosis Date 6 weeks follow-up ([facility]) HISTORY PAST MEDICAL HISTORY SOCIAL HISTORY Past Medical History: Diagnosis Date 6 weeks follow-up ([facility]) Social History Tobacco Use Smoking status: [...] nursing note reviewed. Exam conducted with a vulcanizing machine operator present. Vitals: Estimated body mass index is 38.66 kg/m as calculated from the following: Height as of 11/21/23: 5' 4 . Weight as of this encounter: 225 lb 4 oz. BP: 114/58 Patient's last menstrual period was 05/06/2024. ASSESSMENT & PLAN ICD-10-CM 1. Second trimester ([facility]) Z34.92 POCT urinalysis dipstick manually resulted 2. 23 weeks gestation of ([facility]) Z3A.23 3. Diabetes mellitus screening Z13.1 CBC Glucose tolerance, 1 hour CBC Glucose tolerance, 1 hour Patient presents today for a routine obstetrics appointment. Patient is currently 23w3d with a Estimated Date of Delivery: 02/10/25. Patient given orders for CBC/1hour gtt and is scheduled for with M for repeat US. Patient to return to clinic in 4 weeks for return OB appointment. Documented by Franci Boyd LPN on behalf of: Don Hidalgo DO documented in this encounter [facility] 10-07-2024 Hospital Discharg e instructions Patient [...] care provider who specializes in women's health (carbon paper coating machine setter). How is this treated? Treatment for this [...] partner about your condition. General instructions Take tshx-njo-jndjhte and prescription medicines only as told by [...] sexual activity until your symptoms improve. Take oacc-zji-vxlugjr and prescription medicines only as told by [...] provider. Document Revised: 2021 Document Reviewed: 2021 [employer] Patient Education 2023 [employer]. Follow Up Care 08/08/2024 12:40:44 With:TINO MACK, Darin Cummins, URL Address: [facility] [address] , [place] [address]- [phone] When: only if needed [facility] 10-07-2024 Note Patient Education [...] care provider who specializes in women's health (carbon paper coating machine setter). How is this treated? Treatment for this [...] about your condition. General instructions ??? Take fzze-dni-elgzldm and prescription medicines only as told by [...] activity until your symptoms improve. ??? Take ezaz-rjw-poakkco and prescription medicines only as told by your health care provider. ??? Contact a health care provider if your symptoms get worse or do not improve with treatment. ??? Keep all follow-up visits. This is important. This information is not intended to replace (more content not included)... [facility] 09-23-2024 History of Presen t illness [...] GENDER Have you been seen here at [facility] in a previous ? No Recent ER visits or hospitalizations? No Bring blood sugar log or meter with you today? (Please bring them with you for every visit at [facility]) n/a Flu vaccine (Feb-June)? No Any [...] insurance preference.., Disp: 100 each, Rfl: 1 [id number]-ku6 (DUET DHA WITH OMEGA-3) 25 mg iron-1 mg -400 mg combo pack, Take by mouth., Disp: , Rfl: ferrous sulfate (HIGH POTENCY IRON) 27 mg iron tablet, Take by mouth. (Patient not taking: Reported on 09/23/2024), Disp: , Rfl: [id number]-zfdqc-vi6 25 mg iron-1 mg -400 mg combo [...] 39 weeks 8. Delivery method preferred vaginal. Heath C/S for usual obstetrical indications TIME OF CONSULTATION: We spent 30 minutes with the patient, >50% in discussion and counseling, coordination of care which was ujiv-vx-lvti. documented in this encounter [facility] 09-17-2024 History of Presen t illness Narrative Reason for Appointment: Patient ID: Hesham Avalos is a 24 y.o. female who presents for Routine Visit Patient presents today for Acute Visit. and Return OB appointment. MEDICATIONS Current Outpatient Medications Medication Instructions Ferrous Gluconate (IRON 27 PO) 1 each, Daily Odzagzvc-Xwm-Ka-FA (PRE-SIGIFREDO PO) 1 each, Daily ALLERGIES No [...] Gluconate (IRON 27 PO) 1 each, Daily Lugwxlzo-Vgb-Xr-FA (PRE- PO) 1 each, Daily ALLERGIES No [...] nursing note reviewed. Exam conducted with a vulcanizing machine operator present. Vitals: Estimated body mass index is [...] of: DIMAS Cormier documented in this encounter [facility] 08-20-2024 History of Presen t illness Narrative Reason for Appointment: Patient ID: Hesham Avalos is a 24 y.o. female who presents for Routine Visit Patient presents today for Return OB appointment. MEDICATIONS Current Outpatient Medications Medication Instructions Ferrous Gluconate (IRON 27 PO) 1 each, Daily Ctlwpibb-Uxz-Wl-FA (PRE- PO) 1 each, Daily ALLERGIES No [...] nursing note reviewed. Exam conducted with a vulcanizing machine operator present. Vitals: Estimated body mass index is [...] Date of Delivery: 02/10/25. Pt to see [facility] in September for anatomy scan. Pt given early one hour. Pt to return in 4 weeks for scheduled ob appt. Pt advised to take a baby aspirin. Documented by Brittany Christensen LPN on behalf of: Don Hidalgo DO documented in this encounter [facility] 08-05-2024 Note Patient Education Urology Cystoscopy [...] including vitamins, herbs, eye drops, creams, and rano-bij-nhjlhtd medicines. ??? Any problems you or family [...] tells you to take them. ??? Taking rdyc-xcn-zqcdhvn medicines, vitamins, herbs, and supplements. Tests You [...] these instructions at home: Medicines ??? Take lofy-xip-nbwlrxp and prescription medicines only as told by [...] (biopsy) during your (more content not included)... [facility] 07-23-2024 History of Presen t illness Narrative Reason for Appointment: Patient ID: Hesham Avalos is a 23 y.o. female who presents for No chief complaint on file. Patient presents today for Return OB appointment. MEDICATIONS Current Outpatient Medications Medication Instructions Ferrous Gluconate (IRON 27 PO) 1 each, Daily Aqtycwjv-Duy-Aw-FA (PRE- PO) 1 each, Daily ALLERGIES No [...] nursing note reviewed. Exam conducted with a vulcanizing machine operator present. Vitals: Estimated body mass index is [...] undercooked meat, and stay away from [facility]. Patient has been consulted regarding any further do's and don'ts of . Patient voiced understanding and all questions and concerns were answered. Cultures obtained. Pt being referred to [facility] for h/o placental abnormality (vasa previa). Pt has cyst on urethra- referred to urologist Orders Placed This Encounter Procedures CHLAMYDIA TRACHOMATIS (GENITO/STI) Neisseria gonorrhea DNA probe, direct POCT urinalysis dipstick manually resulted Follow Up: Patient is to return in 4 weeks for routine OB appointment. Documented by Brittany Christensen LPN on behalf of: Don Hidalgo DO documented in this encounter [facility] 05-24-2023 History of Presen t illness Narrative Hesham Avalos is a 22 y.o. female presents with chief complaint of Establish Care HPI: Patient presents today for COAL CRUSHER OPERATOR appointment- to establish care with new provider. SUBJECTIVE: MEDICATIONS: Current Outpatient Medications Medication Instructions Vhkifc-NuWpvz-Mqkjk-FA-[place] 3 (Duet DHA 400) 25-1 & 400 MG misc Oral ALLERGIES: No Known Allergies SURGICAL HISTORY: Past Surgical History: Procedure Laterality Date MOUTH SURGERY 2018 MYRINGOTOMY W/ TUBES 2002 FAMILY HISTORY: Family History Problem Relation Name Age of Onset Hypertension Maternal Grandmother Fior Diabetes Maternal Grandmother Fior Cancer Maternal Grandfather Cancer Paternal Grandfather Raajt SOCIAL HISTORY: Social History Tobacco Use Smoking [...] tenderness or frontal sinus tenderness. Mouth/Throat: Lips: [place]. Mouth: Mucous membranes are moist. Pharynx: Oropharynx [...] follow-ups on file. documented in this encounter [facility] 04-12-2023 History of Presen t illness [...] Drug Allergies CURRENT MEDICATIONS: Current Outpatient Medications: [id number] (DUET DHA WITH OMEGA-3) 25 mg iron-1 [...] insurance preference.., Disp: 100 each, Rfl: 1 [id number]-fusg-qvkhd-fe1 25 mg iron-1 mg -400 mg combo [...] patient is in complete care of her box nailer. Patient does have ultrasound and office visit scheduled with us. Thank you for allowing me to participate in the care of Hesham Avalos. If there any questions please do not hesitate to contact us. Daniella Reina MD Maternal- Medicine [facility] [address] [place] [address] [facility], the CDC, and other organizations representing maternal and public health professionals recommend that , , and lactating people and those considering receive the COVID-19 vaccination. Vaccination is the best method to reduce maternal and complications of SARS-CoV-2 infection. This document was created with [employer] technology. Though I make every effort to review the dictation as it is transcribed, on occasion the spoken word can be misinterpreted by the technology leading to inappropriate words, phrases, or sentences. This note is addressed to the requesting provider as a consultation for clinical guidance. Specific medical abbreviations are occasionally used and those are generally approved by the [place]?Board of?Obstetrics and?Gynecology?as well as?Scout s abbreviations. The above plan of care was based solely on the diagnoses for which a consultation was requested. ?More frequent testing may be indicated based on her other medical/obstetrical conditions. The management of other or medical conditions is beyond the scope of requested consultation and will continue to be followed by the primary box nailer or primary care provider. Note to patient: [...] of the practitioner. documented in this encounter [facility] Evaluation + Plan note No data available for this section [facility] [place] Evaluation note Diagnosis Encounter for wellness examination- Primary Anemia, unspecified type [facility] Diagnosis 35 weeks gestation of - Primary Polyhydramnios affecting [facility] Diagnosis 11 weeks gestation of [...] obesity type- Primary [facility] Diagnosis Polyhydramnios affecting - Primary Low-lying placenta Hemorrhage from placenta previa, unspecified as to episode of care Placenta previa in second trimester Velamentous insertion of umbilical cord in second trimester Vasa previa, single or unspecified fetus History of hemorrhage, currently in second trimester [facility] Diagnosis Second trimester state, incidental [...] this section [facility] Summary Purpose Family History No Family History [...] Specialty Diagnoses / Procedures Referred By Giovany t Referred To Contact Daniella Reina MD [address] [place] [address] Referral ID Status Reason Start Date Expiration Date V isits Requested Visits Authorized [id number] Pending Review 1 1 Referral ID Status Reason Start Date Expiration Date V isits Requested Visits Authorized [id number] Pending Review 1 1 Additional Source Comments INFORMATION SOURCE (unrecogn ized section and content) DATE CREATED AUTHOR 10/05/2018 [facility] DATE CREATED AUTHOR AUTHOR'S ORGANIZ ATION 04/13/2022 [facility] DATE CREATED AUTHOR AUTHOR'S ORGANIZ ATION 07/27/2024 [place] [facility] DATE CREATED AUTHOR AUTHOR'S ORGANIZ ATION 09/24/2024 [facility] DATE CREATED AUTHOR AUTHOR'S ORGANIZ ATION 10/08/2024 [place] [facility] DATE CREATED AUTHOR AUTHOR'S ORGANIZ ATION 10/29/2024 [facility] DATE CREATED AUTHOR AUTHOR'S ORGANIZ ATION 01/31/2025 [facility] Care Teams (unrecognized sec tion and content) Central Office Operator Supervisor Relationship Specialty Start Date End Date Taisha Pena MD [address] [place] [address] PCP - General Family Medicine 05/03/23 Central Office Operator Supervisor Relationship Specialty Start Date End Date Taisha Pena MD [address] [place] [address] PCP - General Family Medicine 05/03/23 Central Office Operator Supervisor Relationship Specialty Start Date End Date Taisha Pena MD [address] [place] [address] PCP - General Family Medicine 05/03/23 Central Office Operator Supervisor Relationship Specialty Start Date End Date Taisha Pena MD [address] [place] [address] PCP - General Family Medicine 05/03/23 Central Office Operator Supervisor Relationship Specialty Start Date End Date Taisha Pena MD [address] [place] [address] PCP - General Family Medicine 05/03/23 Central Office Operator Supervisor Relationship Specialty Start Date End Date Taisha Pena MD [address] [place] [address] PCP - General Family Medicine 05/03/23 Central Office Operator Supervisor Relationship Specialty Start Date End Date Taisha Pena MD [address] [place] [address] PCP - General Family Medicine 05/03/23 Central Office Operator Supervisor Relationship Specialty Start Date End Date Taisha Pena MD [address] [place] [address] PCP - General Family Medicine 05/03/23 Stephanie Sotelo NP [address] [place] [address] PCP - [employer] 07/16/24 Central Office Operator Supervisor Relationship Specialty Start Date End Date Taisha Pena MD [address] [place] [place] [address] PCP - General Family Medicine 05/03/23 Stephanie Sotelo COAL CRUSHER OPERATOR [address] [facility] [place] [address] PCP - [employer] 07/16/24 Central Office Operator Supervisor Relationship Specialty Start Date End Date Taisha Pena MD [address] [place] [address] PCP - General Family Medicine 05/03/23 Stephanie Sotelo NP [address] [place] [address] PCP - [employer] 07/16/24 Central Office Operator Supervisor Relationship Specialty Start Date End Date Taisha Pena MD [address] [facility] [place] [address] PCP - General Family Medicine 05/03/23 Stephanie Sotelo NP [address] [place] [address] PCP - [employer] 07/16/24 Central Office Operator Supervisor Relationship Specialty Start Date End Date Taisha Pena MD [address] [place] [facility] [place] [address] PCP - General Family Medicine 05/03/23 Stephanie Sotelo NP [address] [place] [facility] [place] [address] PCP - [employer] 07/16/24 Central Office Operator Supervisor Relationship Specialty Start Date End Date Taisha Pena MD [address] [facility] [place] [address] PCP - General Family Medicine 05/03/23 Stephanie Sotelo NP [address] [facility] [place] [address] PCP - [employer] 07/16/24 Central Office Operator Supervisor Relationship Specialty Start Date End Date Taisha Pena MD [address] [place] [facility] [place] [address] PCP - General Family Medicine 05/03/23 Stephanie Sotelo NP [address] [place] [facility] [place] [address] PCP - [employer] 07/16/24 Central Office Operator Supervisor Relationship Specialty Start Date End Date Taisha Pena MD [address] [place] [facility] [place] [address] PCP - General Family Medicine 05/03/23 Stephanie Sotelo NP [address] [place] [address] PCP - Carloz Eduardo 07/16/24 Reason for [...] BE BASED ON THE PRIMARY CLINICAL RECORDS. [employer] provides no warranty or guarantee of the accuracy or completeness of information in this document.
--- OUTSIDE RECORDS SUMMARY | 2025-02-03 04:58 | XMS_ITS | Encounter Summary ---
Author Organization [facility] Address [address] [place] [address] Care Team Providers Care Shearing Supervisor Name Role Phone Dayana Pena MD Primary Care Provider [phone] Stephanie Sotelo IMPREGNATING MACHINE OPERATOR Unavailable [phone] Encounter Details Date Type Department Care Team (Late st Contact Info) Description 02/01/2025 Clinisync Result Encounter [facility] External [...] often do you attend chur ch or jain services? 1 to 4 times per year [...] Recorded Patient Health Questionnaire-2 Score 0 05/24/2023 [facility] - [...] PM EDT Routine [facility] [place] [facility] [address] [place] [address] Kathie Lee PA [address] [place] [address] documented as of this encounter Procedures Procedure Name Priority Date/Time Associated Diagnosis Comments US OB BPP W NON-STRESS 02/01/2025 3:04 PM EDT documented in this encounter Results * US OB BPP W NON-STRESS (02/01/2025 3:04 PM EDT) Anatomical Region Laterality Modality Other 02/01/2025 3:04 PM EDT Narrative 02/01/2025 3:06 PM EDT The [address] [address] Ultrasound Report Signed Patient: HESHAM TAYLOR MR#: [id number] : 2000 Acct:[id number] Age/Sex: 24 / F ADM Date: 02/01/25 Loc: US Attending Dr: Britney Smith Ordering Physician: Britney Smith Date of Service: 02/01/25 Procedure(s): US OB BPP w non-stress Accession Number(s): [id number] cc: Britney Smith; DAYANA PENA [place] [id number] Patient Name: HESHAM TAYLOR MRN: [id number] date: 2000 Sex: F Assigned Patient Location: [facility] Current Patient Location: Accession/Order Number: [id number] Exam Date: 02/01/2025 10:10 Report Date: 02/01/2025 [...] Atkinson M.D. 02/01/2025 3:04 PM Dictation Location: [place] [address] Electronically authenticated by: [id number] Y Date: 02/01/2025 15:04 Dictated By: Wilfrido Atkinson M.D. Signed By: 02/01/25 1506 DD/ 1504 TD/TT: Customer Service And Sales Consultant: Procedure Note Radiology, Radiologist, - 02/01/2025 [place] [address] Ultrasound Report Signed Patient: HESHAM TAYLOR AMR#: [id number] : 2000Acct:[id number] Age/Sex: 24 / FADM Date: 02/01/25 Loc: US Attending Dr: Britney Smith Ordering Physician: Britney Smith Date of Service: 02/01/25 Procedure(s): US OB BPP w non-stress Accession Number(s): [id number] cc: Britney Smith; DAYANA PENA The [place] [address] Patient Name: HESHAM TAYLOR MRN: [id number] date: 2000 Sex: F Assigned Patient Location: [facility] Current Patient Location: Accession/Order Number: [id number] Exam Date: 02/01/2025 10:10 Report Date: 02/01/2025 [...] Atkinson M.D. 02/01/2025 3:04 PM Dictation Location: [place] [address] Electronically authenticated by: [id number] Y Date: 5:04 Dictated By: Wilfrido Atkinson M.D. Signed By:02/01/25 1506 DD/ 1504 TD/TT: Customer Service And Sales Consultant: us Generic External Data Provider [facility] Final Result documented in this encounter Visit Diagnoses Not on filedocumented in this encounter Care Teams Shearing Supervisor Relationship Specialty Start Date End Date Dayana Pena MD [address] [place], [place] [id number] PCP - General Family Medicine 05/03/23 Stephanie Sotelo NP [address] [place], [place] [address] PCP - Carloz Eduardo 07/16/24 documented as of this encounter
--- OUTSIDE RECORDS SUMMARY | 2025-02-03 04:58 | XMS_ITS | Encounter Summary ---
Author Organization [facility] Address [address] [place] [address] Care Team Providers Care Mold Filler Plastic Dolls Name Role Phone Taisha Ortiz MD Primary Care Provider [phone] Stephanie Sotelo HAND TIER Unavailable [phone] Encounter Details Date Type Department Care Team (Late Contact Info) Description 12/08/2022 Abstract [facility] [address] [place] [id number] Kathie Lee PA [address] [place] [address] [place], [place] [address] Social History Tobacco Use Types Packs/Day Years [...] Department Care Team (Late Contact Info) Description 02/05/2025 2:20 PM EDT Routine [facility] [address] [place] [phone] Kathie Lee, PA [address] [place], [facility] documented as of this encounter Visit Diagnoses Not on filedocumented in this encounter Care Teams Mold Filler Plastic Dolls Relationship Specialty Start Date End Date Taisha Ortiz MD [address] [place] [address] PCP - General Family Medicine 05/03/23 Stephanie Sotelo NP [address] [place] [address] PCP - Carloz Eduardo 07/16/24 documented as of this encounter
[2025-02-03] MEDS: 0.9 % SODIUM CHLORIDE 1,000 ML 125 ML IV ×2 (05:20→10:20)
[2025-02-03 05:46] LABS: Hematocrit 29.8 % (36.0-48.0); Hemoglobin 9.9 g/dL (12.0-16.0); Mean Corpuscular HGB Conc 33.2 g/dL (29.9-35.2); Mean Corpuscular Hemoglobin 30.3 pg (26.7-34.0); Mean Corpuscular Volume 91.1 fL (81.0-99.0); Platelet Count 147 10^3/uL (150-450); Red Blood Count 3.27 10^6/uL (4.20-5.40); White Blood Count 8.0 10^3/uL (4.0-11.0)
[2025-02-03] MEDS: OXYTOCIN/0.9 % SODIUM CHLORIDE 10 UNITS/500 ML PLAST..BAG 6 UNIT IV (05:50)
[2025-02-03 05:58] LABS: Cannabinoid Screen Urine NEGATIVE (NEGATIVE); Methamphetamines Screen Urine NEGATIVE (NEGATIVE); Tricyclic Antidepressant Urine NEGATIVE (NEGATIVE)
[2025-02-03] MEDS: ROPIVACAINE HCL/PF 400 MG/200 ML PREMIX 6 MG EPIDURAL (10:35)
[2025-02-03] MEDS: OXYTOCIN/0.9 % SODIUM CHLORIDE 20 UNITS/1,000 ML PLAST..BAG 125 UNIT IV (14:28)
--- NOTE | 2025-02-03 14:34 | PM.OBPRCVD ---
Procedure Intrapartal events: None Induction method: per pitocin protocol Delivery augmentation: rupture of membranes Delivery monitor: external FHT and external uterine Route of delivery: Episiotomy Description: none L&D Laceration Description: none Estimated blood loss (mL): 400 Anesthesia type: Epidural Disposition: floor Delivery date: 02/03/25 Gender: male presentation: vertex Placental delivery description: Spontaneous cord description: 3 Vessels
[2025-02-03] MEDS: KETOROLAC TROMETHAMINE 30 MG/ML VIAL IVP (14:43)
[2025-02-03] MEDS: BENZOCAINE/MENTHOL 85 GRAM SPRAY BOTTLE 1 APPLIC TOPICAL (16:20)
[2025-02-03] MEDS: GLYCERIN/WITCH HAZEL PADS 1 PAD TOPICAL (16:20)
[2025-02-03] MEDS: IBUPROFEN 600 MG TABLET PO (20:22)
[2025-02-04] VITALS (7 sets, daily range): BP systolic 118–129; BP diastolic 57–62; PULSE 79–96; TEMP 36.6–36.7
[2025-02-04] MEDS: IBUPROFEN 600 MG TABLET PO ×3 (06:12→23:04)
[2025-02-04 06:17] LABS: Hematocrit 27.8 % (36.0-48.0); Hemoglobin 8.9 g/dL (12.0-16.0); Immature Granulocytes Abs Auto 0.03 10^3/uL (0.00-0.03); Immature Granulocytes Pct Auto 0.3 % (0.0-0.5); Lymphocytes Absolute Auto 1.4 10^3/uL (1.2-3.8); Mean Corpuscular HGB Conc 32.0 g/dL (29.9-35.2); Mean Corpuscular Hemoglobin 29.5 pg (26.7-34.0); Mean Corpuscular Volume 92.1 fL (81.0-99.0); Platelet Count 143 10^3/uL (150-450); Red Blood Count 3.02 10^6/uL (4.20-5.40); White Blood Count 9.0 10^3/uL (4.0-11.0)
[2025-02-04] MEDS: DOCUSATE SODIUM 100 MG CAPSULE PO ×2 (08:30→21:59)
--- NOTE | 2025-02-04 09:01 | P.OBPN_ITS ---
OB - PN: Subj Subjective Patient comments: no complaints [place] status: doing well feeding status: exclusively Exam Constitutional Vital Signs, click to edit/add: Last Vital Signs Temp 97.8 F 02/04/25 08:40 Pulse 96 H 02/04/25 08:39 Resp 18 02/04/25 08:40 BP 129/62 02/04/25 08:39 O2 Del Method Room Air 02/04/25 08:40 Documenting provider has reviewed patient's vital signs: yes Common normals: no apparent distress, average body habitus and oriented x3 General appearance: cooperative, comfortable and well kempt Orientation/consciousness: Yes awake, Yes oriented to person, Yes oriented to place and Yes oriented to time HENMT Common normals: normocephalic Eye Common normals: EOMs intact bilaterally and conjunctivae normal Neck & C-Spine Common normals: full ROM General: normal visual inspection Lymph Lymphatic: no lymphadenopathy noted Respiratory Common normals: normal respiratory effort Effort & inspection: able to speak in complete sentences Auscultation: clear to auscultation bilaterally Cardio Common normals: regular rate and regular rhythm Rate: regular rate Rhythm: regular rhythm GI Common normals: Normal to inspection, nondistended, normoactive bowel sounds present, soft to palpation and non-tender Inspection: normal to inspection Auscultation: normoactive bowel sounds Palpation: soft Common normals: no CVA tenderness Back & Pelvis Common normals: no CVA tenderness Extremity Common normals: normal to inspection and full ROM Neuro Common normals: oriented x3 Sensorium/orientation: awake, alert, oriented to person, oriented to place and oriented to time Psych Common normals: mental status grossly normal, thought process normal, cooperative, affect normal, speech normal, activity/motor behavior normal, denies hallucinations, denies homicidal ideation and denies suicidal ideation Appearance: grossly normal Attitude: calm Results Labs Labs: Short CBC 02/04/25 Range/Units 06:07 WBC 9.0 (4.0-11.0) 10^3/uL Hgb 8.9 L (12.0-16.0) g/dL Hct 27.8 L (36.0-48.0) % Plt Count 143 L (150-450) 10^3/uL OB - PN: A/P Plan - Vaginal Delivery day: 1 Plan: discharge home Time Spent with Patient Time: Total time spent is greater than 50% in coordination of care (as documented) at patient's floor/unit and/or counseling patient: Total time spent with greater than 50% in coordination of care (as documented) at patient's floor/unit and/or counseling patient: less than 15 minutes
--- NOTE | 2025-02-05 07:52 | P.OBPN_ITS ---
OB - PN: Subj Subjective Patient comments: no complaints and pain well controlled [place] status: doing well Exam Constitutional Vital Signs, click to edit/add: Last Vital Signs Temp 98.0 F 02/04/25 23:10 Pulse 79 02/04/25 23:06 Resp 18 02/04/25 23:10 BP 129/58 02/04/25 23:06 O2 Del Method Room Air 02/04/25 23:10 Documenting provider has reviewed patient's vital signs: yes Common normals: no apparent distress Respiratory Common normals: normal respiratory effort and clear to auscultation bilaterally Cardio Common normals: regular rate and regular rhythm GI Common normals: Normal to inspection, nondistended, normoactive bowel sounds present Extremity Common normals: no clubbing, cyanosis or edema and no calf tenderness OB - PN: A/P Plan - Vaginal Delivery day: 2 Plan: routine care, discharge home and follow up 6 weeks Time Spent with Patient Time: Total time spent is greater than 50% in coordination of care (as documented) at patient's floor/unit and/or counseling patient: Total time spent with greater than 50% in coordination of care (as documented) at patient's floor/unit and/or counseling patient: less than 15 minutes
[2025-02-05 09:49] VITALS: BP 121/65; PULSE 92
[2025-02-05 10:19] VITALS: BP 121/65; PULSE 92; TEMP 36.6
== END 2025-02-05 11:55 | disposition home or self-care (01) | DRG 807 ==
PROVIDERS: Admitting Provider Obstetrics & Gynecology; PCP Family Medicine; Visit Provider Obstetrics & Gynecology
DX: O99.214 Obesity complicating childbirth (principal); Z37.0 Single live birth; E66.01 Morbid (severe) obesity due to excess calories; Z3A.39 39 weeks gestation of pregnancy
CPT/HCPCS: 36415; 59050; 59410; 80307; 85025; 85027; 86850; 86900; 86901; J1885; J2795

== ENCOUNTER 2025-02-07 16:56 | Outpatient (OUT) | payer BC, SELFPAY ==
--- OUTSIDE RECORDS SUMMARY | 2025-01-29 13:50 | XMS_ITS | Encounter Summary ---
Author Organization [facility] Address [address] [place] [address] Care Team Providers Care Analytical Clerk Name Role Phone Taisha Ortiz MD Primary Care Provider Stephanie Sotelo RUSH SEATER Unavailable [phone] Reason for Visit * ReasonCommentsRoutine Visit Encounter Details DateTypeDepartmentCare Team (Latest Contact Info)Ogymnzckyly62/15/2025 1:50 PM EDTRoutine [facility] [address] [place] [phone] Kathie Lee PA [address] [place], [place] [phone] Third trimester ([facility]); 38 weeks gestation of ([facility]) Social History Tobacco UseTypesPacks/DayYears UsedDateSmoking Tobacco: NeverSmokeless Tobacco: NeverAlcohol UseStandard Drinks/WeekCommentsNot Currently0 (1 standard drink = 0.6 oz pure alcohol)Humiliation, Afraid, Rape, and Kick questionnaireAnswerDate RecordedWithin the last year, have you been afraid of your partner or ex-partner?No05/17/2023Within the last year, have you been humiliated or emotionally abused in other ways by your partner or ex-partner?No05/17/2023 Within the last year, have you been kicked, hit, slapped, or otherwise physically hurt by your partner or ex-partner?No05/17/2023Within the last year, have you been raped or forced to have any kind of sexual activity by your part ner or ex-partner?No05/17/2023Social Connection and Isolation PanelAnswerDate RecordedIn a typical week, how many times do you talk on the phone with family, friends, or neighbors?More than three times a week05/17/2023How often do you get together with friends or relatives?Twice a week05/17/2023How often do you attend scientology or taoism services?1 to 4 times per year05/17/2023o you belong to any clubs or organizations such as scientology groups, unions, fraternal or athletic ingrid ups, or school groups?No05/17/2023How often do you attend meetings of the clubs or organizations you belong to?Never05/17/2023re you , , , , never , or living with a partner?Pnynpce6105/17/2023 AUDIT-CAnswerDate RecordedQ1: How often do you have a drink containing alcohol? 2-4 times a month05/17/2023Q2: How many drinks containing alcohol do you have on a typical day when you are drinking?3 or Q3: How often do you have six or more drinks on one occasion?Less than iihfoyu9905/17/2023Overall Financial Resource Strain (CARDIA)AnswerDate RecordedHow hard is it for you to pay for the very basics like food, housing, medical care, and heating?Not hard at all 05/17/2023HQ-2AnswerDate RecordedPatient Health Questionnaire-2 Score0 05/24/2023[facility] - Occupational Stress QuestionnaireAnswerDate RecordedDo you feel stress - tense, restless, nervous, or anxious, or unable to sleep at night because yourmind is troubled all the time - these days?Not at all05/17/2023Exercise Vital SignAnswerDate RecordedOn average, how many days per week do you engage in moderate to strenuous exercise (like a brisk walk)?3 days05/17/2023On average, how many minutes do you engage in exercise at this level?30 min05/17/2023Hunger Vital SignAnswerDate Recorded Within the past 12 months, you worried that your food would run out before you got the money to buymore.Never true05/17/2023Within the past 12 months, the food you bought just didn't last and you didn't have money to get more.Never true 05/17/2023RAPARE - TransportationAnswerDate RecordedIn the past 12 months, has lack of transportation kept you from medical appointments or from getting medications?No05/17/2023In the past 12 months, has lack of transportation kept you from meetings, work, or from getting things needed for daily living?No 05/17/2023Housing Stability Vital SignAnswerDate RecordedIn the last 12 months, was there a time when you were not able to pay the mortgage or rent on time?No 05/17/2023In the last 12 months, how many places have you lived?In the last 12 months, was there a time when you did not have a steady place to sleep or slept in [facility] (including now)?No05/17/2023CommentsYesSex and Gender InformationValueDate RecordedSex Assigned at TejstXehtxi06/23/2023 12:02 PM EDTLegal GnwFgeoyy15/15/2023 11:00 PM EDTGender IdentityFemale 10/07/2022 12:02 PM EDTSexual VltrsklfectTtburmvi21/23/2023 12:02 PM EDT documented as of this encounter Last Filed Vital Signs Vital SignReadingTime TakenCommentsBlood Prmnzemp978/8210 3:25 PM EDT Pulse--Temperature--Respiratory Rate--Oxygen Saturation--Inhaled Oxygen Concentration--Jmapwz296 kg (231 lb 1.9 oz)01/29/2025 3:25 PM EDTHeight--Body Mass Index39.6708 2:10 PM EDTdocumented in this encounter Progress Notes * DIMAS Cormier - 01/29/2025 1:50 PM EDT Reason for Appointment: Patient ID: Shelby Avalos is a 24 y.o. female who presents for Routine Visit Patient presents today for Return OB appointment. MEDICATIONS Current Outpatient Medications Medication Instructions Ferrous Gluconate (IRON 27 PO) 1 each, Daily Ogpybafz-Bbd-Dy-FA (PRE- PO) 1 each, Daily ALLERGIES Allergies[1] PROBLEMS Active Ambulatory Problems Diagnosis Date Noted History of placental abnormality 12/24/2024 Resolved Ambulatory Problems Diagnosis Date Noted Obesity affecting in second trimester ([facility]) 01/27/2023 Velamentous insertion of umbilical cord in second trimester ([facility]) 01/27/2023 Past Medical History: Diagnosis Date 6 weeks follow-up ([facility]) HISTORY PAST MEDICAL HISTORY SOCIAL HISTORY Medical [...] & PLAN ICD-10-CM 1. Third trimester ([facility]) Z34.93 2. 38 weeks gestation of ([facility]) Z3A.38 POCT urinalysis dipstick manually resulted Return [...] Medical History: Diagnosis Date 6 weeks follow-up ([facility]) [3] Family History Problem Relation Name Age of Onset Hypertension Maternal Grandmother Fior Diabetes Maternal Grandmother Fior Cancer Maternal Grandfather Fior Heart failure Maternal Grandfather Fior Cancer Paternal Grandfather Rajat Seizures Sister Nicole [4] Past Surgical History: Procedure Laterality Date MOUTH SURGERY 2018 MYRINGOTOMY W/ TUBES 2002 documented in this encounter Plan of Treatment DateTypeDepartmentCare Team (Latest Contact Info)Ilhwbptukrk32/02/2025 10:30 AM ESTPostpartum Visit [facility] ARIASGYNik[facility] [address] [place] [phone] Kathie Lee PA [address] [place], [place] [phone] documented as of this encounter Procedures Procedure NamePriorityDate/TimeAssociated DiagnosisCommentsPOCT URINALYSIS LABCHKOQImjsajb42/15/2025 2:19 PM EDT 38 weeks gestation of ([facility]) documented in this encounter Results * (ABNORMAL) POCT urinalysis dipstick manually resulted (01/29/2025 2:19 PM EDT) ComponentValueRef RangeTest MethodAnalysis TimePerformed AtPathologist SignatureColor, UAYellowClarity, UAClearGlucose, UANegativeNegative - 2000(110) ++++ mg/dLBilirubin, UANegativeNegative - 4(70) +++ mg/dLKetones, UA PositiveNegative - 160(16) ++++ mg/dLSpec Grav, UA1.0201 - 1.03Blood, UA NegativeNegative - 50 Eulogio/mcLpH, UA6.05 - 9Protein, UAPositiveNegative - 2000(20) ++++ mg/dLUrobilinogen, UA2.00.2 - 12 mg/dLLeukocytes, UANegative Negative - 500+++ Rufina/mcLNitrite, UANegativeNegative - PositiveSpecimen (Source)Anatomical Location / LateralityCollection Method / VolumeCollection TimeReceived SjveTmuou96/15/2025 2:19 PM EDT Narrative Authorizing ProviderResult TypeResult StatusSaint Monica's Home [facility] TEST ENTER/EDIT ORDERABLESFinal Result documented in this encounter Visit Diagnoses Diagnosis Third trimester ([facility]) state, incidental 38 weeks gestation of ([facility]) documented in this encounter Care Teams Team MemberRelationshipSpecialtyStart DateEnd Date Taisha Ortiz MD [address] [place], [place] [phone] PCP - GeneralFamily Medicine05/03/23 Stephanie Sotelo NP [address] [place], [place] [id number] PCP - Carloz Eduardo07/16/24documented as of this encounter
[2025-02-07 16:39] VITALS: BP 124/70; PULSE 68; TEMP 36.7
--- OUTSIDE RECORDS SUMMARY | 2025-02-07 16:58 | XMS_ITS | Encounter Summary ---
Author Organization [facility] Address [address] [place] [address] Care Team Providers Care Volunteer Recruitment Coordinator Name Role Phone Dayana Pena MD Primary Care Provider [phone] Stephanie Sotelo SHIP UNLOADER Unavailable [phone] Encounter Details DateTypeDepartmentCare Team (Latest Contact Info)Qdhhnctcojq92/18/2025Clinisync Result Encounter [facility] External Department Unsolicited Provider, Generic External Data Social History Tobacco UseTypesPacks/DayYears UsedDateSmoking Tobacco: NeverSmokeless [...] relatives?Twice a week05/17/2023How often do you attend yazidi or church services?1 to 4 times per year05/17/2023o you belong to any clubs or organizations such as yazidi groups, unions, fraternal or athletic ingrid ups, or school groups?No05/17/2023How often do you attend meetings of the clubs or organizations you belong to?Never05/17/2023re you , , , , never , or living with a partner?Xytprev8205/17/2023 AUDIT-CAnswerDate RecordedQ1: How often do you have a drink containing alcohol? 2-4 times a month05/17/2023Q2: How many drinks containing alcohol do you have on a typical day when you are drinking?3 or Q3: How often do you have six or more drinks on one occasion?Less than trieaxt5405/17/2023Overall Financial Resource Strain (CARDIA)AnswerDate RecordedHow hard is it for you to pay for the very basics like food, housing, medical care, and heating?Not hard at all 05/17/2023HQ-2AnswerDate RecordedPatient Health Questionnaire-2 Score0 05/24/2023[facility] - Occupational Stress QuestionnaireAnswerDate [...] steady place to sleep or slept in ashelter (including now)?No05/17/2023CommentsYesSex and Gender InformationValueDate RecordedSex Assigned at NipovJcxmmj33/23/2023 12:02 PM EDTLegal ZuaCdgctj06/15/2023 11:00 PM EDTGender IdentityFemale 10/07/2022 12:02 PM EDTSexual JssnpgdxhwjLwjqptrf01/23/2023 12:02 PM EDT documented as of this encounter Plan of Treatment DateTypeDepartmentCare Team (Latest Contact Info)Gmbiwzkxehk83/02/2025 10:30 AM ESTPostpartum Visit [facility] [place] [facility] [address] [place] [address] Kathie Lee PA [address] [place], [place] [id number] documented as of this encounter Procedures Procedure NamePriorityDate/TimeAssociated DiagnosisCommentsUS OB BPP W NON-IQUSGR6202/01/2025 3:04 PM EDT documented in this encounter Results * US OB BPP W NON-STRESS (02/01/2025 3:04 PM EDT)Anatomical Region LateralityModalityOtherSpecimen (Source)Anatomical Location / Laterality Collection Method / VolumeCollection TimeReceived Time02/01/2025 3:04 PM EDT Narrative 02/01/2025 3:06 PM EDT [facility] ?[address] ? [place] [address] ? Ultrasound Report ? Signed ? Patient: STEYER,HESHAM A ?MR#: [id number] ?? : 2000 ?Acct:[id number] ?? Age/Sex: 24 / F ?ADM Date: 10/18/25 ?? Loc: US ? Attending Dr: Britney Smith ? Ordering Physician: Britney Smith ?? Date of Service: 02/01/25 ?? Procedure(s): US OB BPP w non-stress ?? Accession Number(s): [id number] ? cc: Britney Smith; DAYANA PENA ? [facility] ? [address] ? [place] [address] ? Patient Name: ?? HESHAM TAYLOR ? MRN: [facility]:[id number] ? date: 2000 ?Sex: F ?? Assigned Patient Location: [facility] ?? Current Patient Location: ? Accession/Order Number: [id number] ?? Exam Date: 02/01/2025 ??10:10 ?Report Date: 02/01/2025 ??15:04 ? At the request of: ?? BRITNEY ??NICHOLE ? Procedure: ??US OB BPP w non-stress ? US OB BPP w non-stress ??02/01/2025 10:38 AM ? SIGNS AND SYMPTOMS: ?? EXCESSIVE GROWTH AFFECTING O36.63X0 ? PROTOCOL: Transabdominal sonographic imaging of the gravid uterus ? COMPARISON: None ? FINDINGS: ? Estimated age: 38 weeks 5 days ? heart rate: 142 bpm ? Amniotic fluid index: 19.78 cm with the deepest vertical pocket measuring 5.86 ?? cm. ? Biophysical profile: ? breathing movements: 2/2 ? Gross body movements: 2/2 ? tone: 2/2 ? Amniotic fluid volume: 2/2 ? US/US OB BPP w non-stress ?? IMPRESSION: ? Biophysical profile: 8/8 ? Impression dictated by: Wilfrido Atkinson M.D. ??02/01/2025 3:04 PM ? Dictation Location: RADIO-PC-17 ? Electronically authenticated by: [id number] ??Y ?? Date: 02/01/2025 ??15:04 ? Dictated By: ?Wilfrido Atkinson M.D. ? Signed By: ?10/18/25 1506 ? DD/ 1504 ? TD/TT: ? T Rail Turner: Procedure Note Radiology, Radiologist, - 02/01/2025 [place] [address] Ultrasound Report Signed Patient: HESHAM TAYLOR AMR#: [id number] : 2000Acct:[id number] Age/Sex: 24 / FADM Date: 02/01/25 Loc: US Attending Dr: Britney Smith Ordering Physician: Britney Smith Date of Service: 02/01/25 Procedure(s): US OB BPP w non-stress Accession Number(s): [id number] cc: Britney Smith; DAYANA PENA The [place] [address] Patient Name: HESHAM TAYLOR MRN: [id number] date: 2000 Sex: F Assigned Patient Location: [facility] Current Patient Location: Accession/Order Number: [id number] Exam Date: 02/01/2025 10:10 Report Date: 02/01/2025 [...] Atkinson M.D. 02/01/2025 3:04 PM Dictation Location: [place] [address] Electronically authenticated by: [id number] Y Date: :04 Dictated By: iWlfrido Atkinson M.D. Signed By:02/01/25 1506 DD/ 1504 TD/TT: T Rail Turner: Authorizing ProviderResult TypeResult StatusGeneric External Data Provider [facility]AGINGFinal Result documented in this encounter Visit Diagnoses Not on filedocumented in this encounter Care Teams Team MemberRelationshipSpecialtyStart DateEnd Date Dayana Pena MD [address] [place], [place] [phone] PCP - GeneralFamily Medicine05/03/23 Stephanie Sotelo NP [address] [place], [place] [address] PCP - Carloz Eduardo07/16/24documented as of this encounter
--- OUTSIDE RECORDS SUMMARY | 2025-02-07 16:58 | XMS_ITS | Clinical Summary ---
Author Organization [email or web address] tem Address [id number] [place] [address] Care Team Providers Care Correctional Officer Chief Name Role Phone Unavailable Primary Care Provider Unavailabl e Allergies Active AllergyReactionsCriticalityNoted DateCommentsNo Known Drug Allergies 05/29/2017 Medications MedicationSigDispense QuantityRefillsLast FilledStart DateEnd DateStatus [id number] 25 mg iron-1 mg -400 mg combo pack Take by mouth.Active ferrous sulfate (HIGH POTENCY IRON) 27 mg iron tablet Take by mouth.Active [id number] (DUET DHA WITH OMEGA-3) 25 mg iron-1 mg -400 mg combo pack Take by mouth.Active blood sugar diagnostic strip Check blood sugar 4-5 times daily, fasting and 1 hour after meals. Use as directed. Dispense per insurance preference. 200 strip [place] [facility] [place] blood sugar 4-5 times daily, fasting and 1 hour after meals. Use as directed. Dispense per insurance preference. 1 each 04/12/2023ctive lancets 31 gauge [facility] [place] strip by miscellaneous route in the morning and 1 strip at noon and 1 strip in the evening and 1 strip before bedtime. Check blood sugar 4-5 times daily, fasting and 1 hour after meals. Use as directed. Dispense per insurance preference.. 100 each ctive Active Problems ProblemNoted DateDiagnosed DateVelamentous insertion of umbilical cord in second mcnoqrbmj38/13/2023Obesity affecting in second /13/2023 Estimated Date of WvyfxzwwOmsoivjyIll73/27/2025Based on last menstrual period of 05/06/2024 Resolved Problems ProblemNoted DateDiagnosed DateResolved DatePlacenta previa in second trimester Vasa aduiwp00 Immunizations ImmunizationAdministration DatesNext QweNIJ8912/19/2020DTaP12/08/2004DTaP, Vbattomhriv65/07/2001,01/12/2001,2000Hep B / HIB03/23/2001,2000Hep B, Adolescent or Tdrtdnuto77/14/2020,04/11/2019,2000Hepatitis B005/14/2019 Hib (HbOC)01/12/2001IPV12/08/2004,03/23/2001,01/12/2001,2000Influenza, Injectable, quadrivalent (PF)04/11/2019(Deferred: Patient decision)MMR12/08/2004 ,09/28/2001MMRV04/11/2019Meningococcal Yslxjlhrh32/26/2018 Family History Medical HistoryRelationNameCommentsNo Known ProblemsFatherCancerMaternal GrandfatherCirrhosisMaternal GrandmotherDiabetesMaternal GrandmotherHeart diseaseMaternal GrandmotherHypertensionMaternal GrandmotherNo Known Problems MotherCancerPaternal GrandfatherAtrial fibrillationPaternal GrandmotherCancer Paternal GrandmotherEpilepsySisterRelationNameStatusCommentsFatherAliveMaternal GrandfatherMaternal GrandmotherMotherAlivePaternal GrandfatherPaternal GrandmotherSister Social History Tobacco UseTypesPacks/DayYears UsedDateSmoking Tobacco: NeverPassive Smoke Exposure: NeverSmokeless Tobacco: Never Tobacco Cessation:Counseling Given: Not Answered Alcohol UseStandard Drinks/WeekCommentsNot Currently0 (1 standard drink = 0.6 oz pure alcohol)Social Connection and Isolation PanelAnswerDate RecordedIn a typical week, how many times do you talk on the phone with family, friends, or neighbors?More than three times a week01/31/2021How often do you get together with friends or relatives?Three times a week01/31/2021How often do you attend christianity or evangelical services?Never01/31/2021o you belong to any clubs or organizations such as christianity groups, unions, fraternal or athletic groups, or school groups?No01/31/2021How often do you attend meetings of the clubs or organizations you belong to?Never01/31/2021re you , , , , never , or living with a partner?Living with nyqngmt5601/31/2021 AUDIT-CAnswerDate RecordedQ1: How often do you have a drink containing alcohol? 2-4 times a month01/31/2021Q2: How many drinks containing alcohol do you have on a typical day when you are drinking?3 or Q3: How often do you have six or more drinks on one occasion?Less than bfefjhc2501/31/2021Overall Financial Resource Strain (CARDIA)AnswerDate RecordedHow hard is it for you to pay for the very basics like food, housing, medical care, and heating?Not very hard 01/31/2021HQ-2AnswerDate RecordedTotal Ijmcu522Finjordan [facility] [place] of Occup[facility] - Occupational Stress QuestionnaireAnswerDate RecordedDo you feel stress - tense, restless, nervous, or anxious, or unable to sleep at night because yourmind is troubled all the time - these days?Very much01/31/2021 Exercise Vital SignAnswerDate RecordedOn average, how many days per week do you engage in moderate to strenuous exercise (like a brisk walk)?1 day01/31/2021On average, how many minutes do you engage in exercise at this level?10 min 01/31/2021RAPARE - TransportationAnswerDate RecordedIn the past 12 months, has lack of transportation kept you from medical appointments or from getting medications?No01/31/2021In the past 12 months, has lack of transportation kept you from meetings, work, or from getting things needed for daily living?No 01/31/2021hildcareAnswerDate RecordedDo problems getting child nutrition director make it difficult for you to work or study?No01/31/2021mploymentAnswerDate RecordedDo you need help finding a local career center and/or a training program?No 01/31/2021Hunger ScreeningAnswerDate RecordedWithin the past 12 months we worried whether our food would run out before we got money to buy more.Never True09/23/2024Within the past 12 months the food we bought just didn't last and we didn't have money to get more.Never True09/23/2024Purpose - LifeAnswerDate RecordedI have a purpose and direction in my life.Agree01/31/2021ducationAnswer Date RecordedWhat is the highest level of school you have completed or the highest degree you have received?Some college, no uvvneh1601/31/2021 Estimated Date of DehwhdchLiptbiduLli54/27/2025Based on last menstrual period of 05/06/2024Sex and Gender InformationValueDate RecordedSex Assigned at BirthFemale 01/24/2023 7:49 AM EDTLegal QpoUsmstc65/04/2015 12:15 PM EDTGender Identity Rywutw6601/24/2023 7:49 AM EDTSexual TwhqtxxlupdLnvpmlsf94/10/2023 7:49 AM EDT Last Filed Vital Signs Vital SignReadingTime TakenCommentsBlood Scypicui494/7506 11:59 AM EDT Estab760809/23/2024 11:59 AM MTPPkzfygdogtq41.5 ??C (95.9 ??F)02/02/2021 10:17 AM EDTRespiratory Mrxk532407/28/2020 8:51 AM EDTOxygen Eeofepljdq21%02/02/2021 10:17 AM EDTInhaled Oxygen Concentration--Jattav101.5 kg (221 lb 9.6 oz)09/23/2024 11:59 AM ETODvgcch170.6 cm (5' 4 )09/23/2024 11:59 AM EDTBody Mass Index38.04 09/23/2024 11:59 AM EDT Plan of Treatment Health MaintenanceDue DateLast DoneCommentsDepression Dbhhojdvt98/26/2013dult BMI Follow Up Plan2018Chlamydia Sgxvvetmo50/26//OVID-19 Vaccine ( season)/, 05/13/2021Influenza Vaccine /, 02/01/2021dult BMI Yrqofdffm38/09/896723/12/2024Tobacco Jfpycwiuy39/12/2024Pap Smear/TaP,Tdap and Td Vaccines (6 - Tdap)/07/2020, 12/08/2004, 03/23/2001, Additional history exists Medical Devices Not on file Procedures Procedure NamePriorityDate/TimeAssociated DiagnosisCommentsCHLAMYDIA/GC BY PCR ELISABETH OHJTXyxwqsm24/26/2023 from Last 3 Months or Most Recently Relevant to Health Maintenance Results * Chlamydia/GC by PCR Elisabeth Swab (11/09/2022)ComponentValueRef RangeTest Method Analysis TimePerformed AtPathologist SignatureChlamydia Dna(Pcr)negative MANUALLY TRANSCRIBED RESULTSGonorrhoeae Dna(Pcr)negativeMANUALLY TRANSCRIBED RESULTS Narrative Authorizing ProviderResult TypeResult StatusNot In System Ref ProvMICROBIOLOGY - GENERAL ORDERABLESFinal ResultPerforming OrganizationAddressCity/State/ZIP Code Phone Number MANUALLY TRANSCRIBED RESULTS from Last 3 Months or Most Recently Relevant to Health Maintenance Insurance
--- OUTSIDE RECORDS SUMMARY | 2025-02-07 16:58 | XMS_ITS | Clinical Summary ---
Author Organization [facility] Address [address] [place] [address] Care Team Providers Care Formula Checker Name Role Phone Taisha Pena MD Primary Care Provider Stephanie Sotelo GEOSPATIAL INTELLIGENCE ANALYST Unavailable [phone] Allergies No known active allergies Medications MedicationSigDispense QuantityRefillsLast FilledStart DateEnd DateStatus Lkjbcdkh-Qir-Lc-FA (PRE- PO) Take 1 each by mouth DailyActive Ferrous Gluconate (IRON 27 PO) Take 1 each by mouth DailyActive Active Problems ProblemNoted DateDiagnosed DateHistory of placental hyjbmqmside89/09/2025 Resolved Problems ProblemNoted DateDiagnosed DateResolved DateObesity affecting in second trimester ([facility])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) Encounters DateTypeDepartmentCare ItgtUtugdafafsy89/24/2025Patient Outreach [facility] [address] [place] [address] Kathie Lou LPN 02/03/2025bstract [facility] [address] [address] [place] [phone] Rebeca Hidalgo DO 02/01/2025linisync Result Encounter [facility]OM[facility] External Department Unsolicited Provider, Generic External Data 01/29/2025 1:50 PM EDTRoutine [facility] [address]AVIER [address] [place] [address] Kathie Lee PA Third trimester ([facility]); 38 weeks gestation of ([facility])01/29/2025amboo flowsheet [facility] Martel [facility] [place] [address] Kathie Lee PA 5Clinisync Result Encounter NOMS External Department Unsolicited Provider, Generic External Data 01/23/2025 10:20 AM EDTRoutine [facility] [phone] Kendra Smith NP Third trimester ([facility]); 37 weeks gestation of ([facility])01/23/2025amboo flowsheet [facility] T[facility] Martel [facility] [place] [address] Kendra Smith NP 5Clinisync Result Encounter NOMS External Department Unsolicited Kendra Smith NP 01/14/2025 9:20 AM EDTRoutine [facility] [phone] Kendra Smith NP Third trimester ([facility]); 36 weeks gestation of ([facility]); History of placental abnormality; Excessive growth affecting management of , antepartum, single or unspecified fetus ([facility])01/14/2025 9:00 AM EDTAncillary Procedure [facility] [address] Excessive growth affecting management of , antepartum, single or unspecified fetus ([facility])01/14/2025linisync Result Encounter NOMS External Department Unsolicited Provider, Generic External Data 01/06/2025 10:20 AM EDTRoutine [facility] [place] [phone] Kathie Lee PA Third trimester ([facility]); 35 weeks gestation of ([facility])01/06/2025amboo flowsheet [facility] T[facility] Martel [facility] [place] [address] Kathie Lee PA 12/24/2024 10:00 AM EDTRoutine [facility] T[facility] Martel [facility] [place] [address] Rebeca Hidalgo DO Third trimester ([facility]); 33 weeks gestation of ([facility]); History of placental abnormality; Excessive growth affecting management of , antepartum, single or unspecified fetus ([facility])12/24/2024amboo flowsheet [facility] T[facility] ARIASGYN [address] [facility] [place] [address] Rebeca Hidalgo DO 12/14/2024linisync Result Encounter NOMS External Department Unsolicited Provider, Generic External Data 12/12/2024 10:10 AM EDTRoutine [facility] T[facility] JAVIER [address] [facility] [place] [address] Kathie Lee PA Third trimester ([facility]); 31 weeks gestation of ([facility])12/12/2024amboo flowsheet [facility] T[facility] JAVIER [address] [facility] [place] [address] Kathie Lee PA 11/28/2024 8:30 AM EDTRoutine [facility] Tj FRANKLINN [address] [facility] [place] [address] Rebeca Hidalgo DO Third trimester ([facility]); 29 weeks gestation of ([facility]); History of placental abnormality; Excessive growth affecting management of in third trimester, single or unspecified fetus ([facility])11/28/2024amboo flowsheet [facility] T[facility] Martel [facility] [place] [address] Rebeca Hidalgo DO 5Clinisync Result Encounter NOMS External Department Unsolicited Provider, Generic External Data 11/14/2024 11:20 AM EDTRoutine [facility] T[facility] JAVIER [address] [facility] [place] [address] Kathie Lee PA Second trimester ([facility]); 27 weeks gestation of ([facility])5Bamboo flowsheet [facility] T[facility] JAVIER [address] [facility] [place] [address] Kathie Lee PA 11/09/2024Travelfrom Last 3 Months Immunizations ImmunizationAdministration DatesNext YqdBCQ422706VSrQ22/24/2005DTaP, Jbngvmsnyde20/07/2001,01/12/2001,2000Hep B, Adolescent or Pediatric 10/29/2019,04/11/2019,2000Hep B, adult05/14/2019Hib (HbOC)01/12/2001Hib / Hep B12,2000IPV12/08/2004,03/23/2001,01/12/2001,2000 Influenza, recombinant, quadrivalent, injectable, preservative free02/01/2021MMR 12/08/2004,09/28/2001MMRV04/11/2019Meningococcal EHM0W5111/09/2017 Family History Medical HistoryRelationNameCommentsCancerMaternal GrandfatherJeanetteHeart failureMaternal GrandfatherJeanetteDiabetesMaternal GrandmotherJeanette HypertensionMaternal GrandmotherJeanetteCancerPaternal GrandfatherClydeSeizures Sister 4JamyRelationNameStatusCommentsFatherAliveMaternal GrandfatherJeanette DeceasedMaternal GrandmotherJeanetteAliveMotherAlivePaternal GrandfatherClyde DeceasedPaternal GrandmotherAliveSister 1AliveSister 2AliveSister 3AliveSister 4 JamySonAlive Social History Tobacco UseTypesPacks/DayYears UsedDateSmoking Tobacco: NeverSmokeless Tobacco: Never Tobacco Cessation:Counseling Given: Not [...] relatives?Twice a week05/17/2023How often do you attend bahai or lutheran services?1 to 4 times per year05/17/2023o you belong to any clubs or organizations such as bahai groups, unions, fraternal or athletic ingrid ups, or school groups?No05/17/2023How often do you attend meetings of the clubs or organizations you belong to?Never05/17/2023re you , , , , never , or living with a partner?Cfnpexw1505/17/2023 AUDIT-CAnswerDate RecordedQ1: How often do you have a drink containing alcohol? 2-4 times a month05/17/2023Q2: How many drinks containing alcohol do you have on a typical day when you are drinking?3 or Q3: How often do you have six or more drinks on one occasion?Less than scpfrkq8905/17/2023Overall Financial Resource Strain (CARDIA)AnswerDate RecordedHow hard is it for you to pay for the very basics like food, housing, medical care, and heating?Not hard at all 05/17/2023HQ-2AnswerDate RecordedPatient Health Questionnaire-2 Score0 02/07/2025[facility] [place] [facility] - Occupational Stress QuestionnaireAnswerDate [...] steady place to sleep or slept in o[place] (including now)?No05/17/2023CommentsNoSex and Gender InformationValueDate RecordedSex Assigned at ElpijBkfcpe69/23/2023 12:02 PM EDTLegal EnvHwjfnx60/15/2023 11:00 PM EDTGender TcgzoyomYjrjnt81/23/2023 12:02 PM EDTSexual JuwombhvungYfjqatyz77/23/2023 12:02 PM EDT Last Filed Vital Signs Vital SignReadingTime TakenCommentsBlood Fmgyslsy848/8210 3:25 PM EDT Xsdql3371 2:05 PM ESTTemperature--Respiratory Haea093205/24/2023 2:05 PM ESTOxygen Bduayekfxx89%05/24/2023 2:05 PM ESTInhaled Oxygen Concentration-- Lkzafs899 kg (231 lb 1.9 oz)01/29/2025 3:25 PM CBYZosswc631.6 cm (5' 4 ) 11/21/2023 2:10 PM EDTBody Mass Index39.67011/21/2023 2:10 PM EDT Plan of Treatment DateTypeDepartmentCare Team (Latest Contact Info)Wzhcrwgztai58/02/2025 10:30 AM ESTPostpartum Visit [facility] OBGYNikole [address] [facility] [place] [address] Kathie Lee PA [address] [facility] [address] [place], [place] [phone] Health MaintenanceDue DateLast DoneCommentsInfluenza Vaccine (#1)12/16/2024 02/01/2021 Procedures Procedure NamePriorityDate/TimeAssociated DiagnosisCommentsUS OB BPP W NON-RQYXYB1902/01/2025 3:04 PM EDT POCT URINALYSIS JWOYUDUTPfkkazp80/15/2025 2:19 PM EDT 38 weeks gestation of ([facility]) US OB BPP W NON-KPNSEM8501/25/2025 11:11 AM EDT POCT URINALYSIS MEJMBENTLhfcuro42/09/2025 10:29 AM EDT Third trimester ([facility]) US OB BPP W NON-BSXWWJ3501/18/2025 12:13 PM EDT POCT URINALYSIS PFRMJPNNOxvvmpv05/30/2025 9:48 AM EDT Third trimester ([facility]) STREP GP B CULTURE+LDPARlhwsyr40/30/2025 9:33 AM EDT CULTURE, GROUP B STREP WITH WAYVKEGZJQJQJPxoqlbc29/30/2025 9:32 AM EDT Third trimester ([facility]) US OB FOLLOW UP TRANSABDOMINAL CGFQJMTMQwdbtlg03/30/2025 9:27 AM EDT Excessive growth affecting management of , antepartum, single or unspecified fetus ([facility]) POCT URINALYSIS GVXOIYDVTzdjrla07/22/2025 10:42 AM EDT Third trimester ([facility]) POCT URINALYSIS YLBTSZIWOpzvqjg86/09/2025 10:13 AM EDT Third trimester ([facility]) US OB PKXOUB5312/14/2024 11:17 AM EDT POCT URINALYSIS ARWVWKRLBcooucb71/28/2025 11:01 AM EDT Third trimester ([facility]) POCT URINALYSIS DGGRGFYRQieukfm74/14/2025 8:48 AM EDT Third trimester ([facility]) GLUCOSE 1 OEODCzctpts86/02/2025 10:06 AM EDT ALL CBC WITH AUTO BUTMNxqvoho85/02/2025 10:06 AM EDT POCT URINALYSIS CDQJGNBEOurcaha07/31/2025 11:35 AM EDT Second trimester ([facility]) from Last 3 Months Results * US OB BPP W NON-STRESS (02/01/2025 3:04 PM EDT) Only the most recent of3 resultswithin the time period is included. Anatomical RegionLateralityModalityOtherSpecimen (Source)Anatomical Location / LateralityCollection Method / VolumeCollection TimeReceived Time02/01/2025 3:04 PM EDT Narrative 02/01/2025 3:06 PM EDT [facility] ?[address] ? [place] [address] ? Ultrasound Report ? Signed ? Patient: HESHAM AVALOS ?MR#: [id number] ?? : 2000 ?Acct:[id number] ?? Age/Sex: 24 / F ?ADM Date: 10/18/25 ?? Loc: US ? Attending Dr: Kendra Smith ? Ordering Physician: Kendra Smith ?? Date of Service: 02/01/25 ?? Procedure(s): US OB BPP w non-stress ?? Accession Number(s): [id number] ? cc: Kendra Smith; TAISHA PENA ? [facility] ? [address] ? [place] [address] ? Patient Name: ?? HESHAM AVALOS ? MRN: [facility]:[id number] ? date: 2000 ?Sex: F ?? Assigned Patient Location: FB ?? Current Patient Location: ? Accession/Order Number: [id number] ?? Exam Date: 02/01/2025 ??10:10 ?Report Date: 02/01/2025 ??15:04 ? At the request of: ?? KENDRA ??NICHOLE ? Procedure: ??US OB BPP w [...] Dictation Location: RADIO-PC-17 ? Electronically authenticated by: [id number] ??Y ?? Date: 02/01/2025 ??15:04 ? Dictated By: ?Wilfrido Atkinson M.D. ? Signed By: ?02/01/25 1506 ? DD/ 1504 ? TD/TT: ? Material Controller: Procedure Note Radiology, Radiologist, - 02/01/2025 [place] [address] Ultrasound Report Signed Patient: HESHAM AVALOS AMR#: [id number] : 2000Acct:[id number] Age/Sex: 24 / FADM Date: 02/01/25 Loc: US Attending Dr: Kendra Smith Ordering Physician: Kendra Smith Date of Service: 02/01/25 Procedure(s): US OB BPP w non-stress Accession Number(s): [id number] cc: Kendra Smith; TAISHA PENA [place] [address] Patient Name: HESHAM AVALOS MRN: [facility]:[id number] date: 2000 Sex: F Assigned Patient Location: [facility] Current Patient Location: Accession/Order Number: [id number] Exam Date: 02/01/2025 10:10 Report Date: 02/01/2025 [...] Atkinson M.D. 02/01/2025 3:04 PM Dictation Location: [place] [address] Electronically authenticated by: [id number] Y Date: :04 Dictated By: Wilfrido Atkinson M.D. Signed By:02/01/25 1506 DD/ 1504 TD/TT: Material Controller: Authorizing ProviderResult TypeResult StatusGeneric External Data Provider CLINISYNC IMAGINGFinal Result * (ABNORMAL) POCT urinalysis dipstick manually resulted (01/29/2025 2:19 PM EDT) Only the most recent of8 resultswithin the time period is included. ComponentValueRef RangeTest MethodAnalysis TimePerformed AtPathologist Signature Color, UAYellowClarity, UAClearGlucose, UANegativeNegative - 2000(110) ++++ mg/dLBilirubin, UANegativeNegative - 4(70) +++ mg/dLKetones, UAPositiveNegative - 160(16) ++++ mg/dLSpec Grav, UA1.0201 - 1.03Blood, UANegativeNegative - 50 Eulogio/mcLpH, UA6.05 - 9Protein, UAPositiveNegative - 2000(20) ++++ mg/dL Urobilinogen, UA2.00.2 - 12 mg/dLLeukocytes, UANegativeNegative - 500+++ Rufina/mcL Nitrite, UANegativeNegative - PositiveSpecimen (Source)Anatomical Location / LateralityCollection Method / VolumeCollection TimeReceived EtfxDuajr20/15/2025 2:19 PM EDT Narrative Authorizing ProviderResult TypeResult StatusAmy Landmark Medical CenterOINT OF CARE TEST ENTER/EDIT ORDERABLESFinal Result * STREP GP B CULTURE+RFLX (01/14/2025 9:33 AM EDT)ComponentValueRef RangeTest MethodAnalysis TimePerformed AtPathologist SignatureSTREP GP B CULTURE+RFLX ??Strep Gp B Culture+Rflx TBHSTREP GP B CULTURE+RFLXNegativeTBHSTREP GP B CULTURE+RFLXCenters for Disease Control and Prevention (CDC) andTBHSTREP GP B CULTURE+RFLXAmerican Congress of Obstetricians and GynecologistsTBHSTREP GP B CULTURE+RFLX(ACOG) guidelines for prevention of group BTBHSTREP GP B CULTURE+RFLXstreptococcal (GBS) disease specify co-collection ofTBHSTREP GP B CULTURE+RFLXa vaginal and rectal swab specimen to maximizeTBHSTREP GP B CULTURE+RFLXsensitivity of GBS detection. Per the CDC and ACOG,TBHSTREP GP B CULTURE+RFLXswabbing both the lower vagina and rectumTBHSTREP GP B CULTURE+RFLXsubstantially increases the yield of detectionTBHSTREP GP B CULTURE+RFLXcompared with sampling the vagina alone.TBH STREP GP B CULTURE+RFLXPenicillin G, ampicillin, or cefazolin are indicatedTBH STREP GP B CULTURE+RFLXfor intrapartum prophylaxis of GBSTBHSTREP GP B CULTURE+RFLXcolonization. Reflex susceptibility testing should beTBHSTREP GP B CULTURE+RFLXperformed prior to use of clindamycin only on GBSTBHSTREP GP B CULTURE+RFLXisolates from penicillin-allergic women who areTBHSTREP GP B CULTURE+RFLXconsidered a high risk for anaphylaxis. Treatment withTBHSTREP GP B CULTURE+RFLXvancomycin without additional testing is warranted ifTBHSTREP GP B CULTURE+RFLXresistance to clindamycin is noted.TBHSTREP GP B CULTURE+RFLX Performed at: [facility] MichiganTBHSTREP GP B CULTURE+[id number] [place], [place] [id number] GP B CULTURE+RFLXLab Director: Andrade Curry PhD, Phone: [phone] (Source)Anatomical Location / Laterality Collection Method / VolumeCollection TimeReceived Time01/14/2025 9:33 AM EDT 01/15/2025 6:37 AM EDT Narrative CLINISYNC - 01/19/2025 6:07 PM EDT Authorizing ProviderResult TypeResult StatusGeneric External Data ProviderLAB BLOOD ORDERABLESFinal ResultPerforming OrganizationAddressCity/State/ZIP Code Phone Number [facility] * CULTURE, GROUP B STREP WITH SUSCEPTIBLITY (01/14/2025 9:32 AM EDT)Specimen (Source)Anatomical Location / LateralityCollection Method / VolumeCollection TimeReceived KagrRujp83/30/2025 9:32 AM EDT Narrative Authorizing ProviderResult TypeResult StatusKendra Smith NPGURVINDER BLOOD ORDERABLESFinal ResultPerforming OrganizationAddressCity/State/ZIP CodePhone Number EXTERNAL LAB * US OB follow up transabdominal approach (01/14/2025 9:27 AM EDT)Anatomical RegionLateralityModalityBodyUltrasoundSpecimen (Source)Anatomical Location / LateralityCollection Method / VolumeCollection TimeReceived Time01/14/2025 1:42 PM EDT Impressions 01/14/2025 2:09 PM EDT 1. Single, live intrauterine , current sonographic age of 38 weeks and 6 days, with an estimated date of delivery of January 22, 2025 (prior RAY February 10, 2025) 2. Estimated weight 3946 grams (8 pounds, 11 ounces), weight by percentile >97% * ??Estimated Weight (g) by Percentile is based upon an accurate estimated age based onlast menstrual period. ?? TRANSCRIBED BY: ? ELECTRONICALLY SIGNED BY: Wayne Alarcon MD Narrative 01/14/2025 2:09 PM EDT FINDINGS: Comparison July 05, 2024. A single, live intrauterine is present with normal cardiac rate of 151 beats per minute. Normal activity and amniotic fluid volume. Amniotic fluid index is 18 cm. ??Morphology is grossly normal. The cervix is not visualized due to positioning. ??The current sonographic age is 38 weeks and 6 days, based on the following measurements: ?BPD ? 9.8 cm (40 weeks, 0 days) ?Head Circumference ?37.1 cm (OOR) ?Abdominal Circumference ?36.5 cm (40 weeks, 3 days) ?Femur Length ?7.1 cm (36 weeks, 1 day) ?Presentation ? Cephalic ? Weight (g) by Percentile >97% * These measurements result in an estimated date of delivery of January 22, 2025. ?? The current estimated weight is 3946 grams (8 pounds, 11 ounces). ?? Procedure Note Wayne Alarcon MD - 01/14/2025 [...] BY: ELECTRONICALLY SIGNED BY: Wayne Alarcon MD Authorizing ProviderResult TypeResult StatusCorey Rocky [facility] OB US PROCEDURES Final Result * US OB GROWTH (12/14/2024 11:17 AM EDT)Anatomical RegionLateralityModalityOther Specimen (Source)Anatomical Location / LateralityCollection Method / Volume Collection TimeReceived Time12/14/2024 11:17 AM EDT Narrative 12/14/2024 11:19 AM EDT [facility] ?[address] ? [place] [address] ? Ultrasound Report ? Signed ? Patient: CLAUDIA,HESHAM Villagran ?MR#: [id number] ?? : 2000 ?Acct:[id number] ?? Age/Sex: 24 / F ?ADM Date: //25 ?? Loc: US ? Attending Dr: Rebeca Hidalgo D.O. ? Ordering Physician: Rebeca Hidalgo D.O. ?? Date of Service: 12/14/24 ?? Procedure(s): US OB growth ?? Accession Number(s): [id number] ? cc: Rebeca Hidalgo D.O.; TAISHA PENA ? [facility] ? [address] ? [place] [address] ? Patient Name: ?? HESHAM AVALOS ? MRN: [facility]:[id number] ? date: 2000 ?Sex: F ?? Assigned Patient Location: US ?? Current Patient Location: US ?? Accession/Order Number: [id number] ?? Exam Date: 12/14/2024 ??09:50 ?Report Date: 12/14/2024 ??11:17 ? At the request of: ?? REBECA ??ROCKY ??DO ? Procedure: ??US OB growth ? US OB growth ??12/14/2024 10:10 AM ? SIGNS AND SYMPTOMS: ?? EXCESSIVE GROWTH O36.63X0 ? COMPARISON: None. ? TECHNIQUE: Limited pelvic ultrasound using transvesical sonography. ? FINDINGS: ? An intrauterine is identified. ??The fetus has an estimated ?? gestational age of 35 weeks and 2 days by measurements which is advanced ?? compared to the estimated gestational age of 31 weeks and 5 days based on ?? dates. ??A heart rate is identified at 147 bpm. A normal amount of amniotic ?? fluid is present. There is no evidence for placenta previa or subchorionic ?? hemorrhage. ? Pelvic survey reveals no gross abnormalities. ? US/US OB growth ?? IMPRESSION: ? Single live IUP. ? The fetus has an estimated gestational age of 35 weeks and 2 days by ?? measurements which is advanced compared to the estimated gestational age of 31 ?? weeks and 5 days based on dates. ? Impression dictated by: Wilfrido Atkinson M.D. ??12/14/2024 11:17 AM ? Dictation Location: [facility]-- ? Electronically authenticated by: [id number] ??Y ?? Date: 12/14/2024 ??11:17 ? Dictated By: ?Wilfrido Atkinson M.D. ? Signed By: ?12/14/24 1119 ? DD/ 1117 ? TD/TT: ? Material Controller: Procedure Note Radiology, Radiologist, - 12/14/2024 [place] [address] Ultrasound Report Signed Patient: HESHAM AVALOS AMR#: [id number] : 2000Acct:[id number] Age/Sex: 24 / FADM Date: 12/14/24 Loc: US Attending Dr: Rebeca Hidalgo D.O. Ordering Physician: Rebeca Hidalgo D.O. Date of Service: 12/14/24 Procedure(s): US OB growth Accession Number(s): [id number] cc: Rebeca Hidalgo D.O.; TAISHA PENA The [place] [id number] Patient Name: HESHAM AVALOS MRN: [facility]:[id number] date: 2000 Sex: F Assigned Patient Location: Current Patient Location: US Accession/Order Number: [id number] Exam Date: 12/14/2024 09:50 Report Date: 12/14/2024 [...] Atkinson M.D. 12/14/2024 11:17 AM Dictation Location: [place] [address] Electronically authenticated by: [id number] Y Date: 1:17 Dictated By: Wilfrido Atkinson M.D. Signed By:12/14/24 1119 DD/ 1117 TD/TT: Material Controller: Authorizing ProviderResult TypeResult StatusGeneric External Data Provider CLINISYIA IMAGINGFinal Result * GLUCOSE 1 HOUR (11/16/2024 10:06 AM EDT)ComponentValueRef RangeTest Method Analysis TimePerformed AtPathologist SignatureGLUCOSE 1 UHQG310<130 mg/dLTBH Specimen (Source)Anatomical Location / LateralityCollection Method / Volume Collection TimeReceived Time11/16/2024 10:06 AM EDT11/16/2024 10:07 AM EDT Narrative CLINISYNC - 11/16/2024 10:45 AM EDT Authorizing ProviderResult TypeResult StatusCorey Rocky DOL BLOOD ORDERABLES Final ResultPerforming OrganizationAddressCity/State/ZIP CodePhone Number [facility] * (ABNORMAL) ALL CBC WITH AUTO DIFF (11/16/2024 10:06 AM EDT)ComponentValueRef RangeTest MethodAnalysis TimePerformed AtPathologist SignatureTBH WBC9.04.0 - 11.0 10 3/uLTBHTBH RBC3.43(L)4.20 - 5.40 10 6/uLTBHTBH HGB10.6(L)12.0 - 16.0 g/dLTBHTBH HCT32.3(L)36.0 - 48.0 %TBHTBH MCV94.281.0 - 99.0 fLTBHTBH MCH30.9 26.7 - 34.0 pgTBHTBH MCHC32.829.9 - 35.2 g/dLTBHTBH RDW13.711.0 - 15.0 %TBHTBH POY925580 - 450 10 3/uLTBHTBH MPV10.19.5 - 13.5 fLTBHNEUTROPHILS PERCENT AUTO 77.2(H)43.0 - 75.0 %TBHLYMPHOCYTES PERCENT AUTO16.2(L)20.5 - 60.0 %TBH MONOCYTES PERCENT AUTO5.81.7 - 12.0 %TBHTBH EO %0.2(L)0.9 - 7.0 %TBHBASOPHILS PERCENT AUTO0.20.2 - 2.0 %TBHIMMATURE GRANULOCYTES PCT AUTO0.40.0 - 0.5 %TBH NEUTROPHILS ABSOLUTE AUTO6.9(H)1.4 - 6.5 10 3/uLTBHLYMPHOCYTES ABSOLUTE AUTO 1.51.2 - 3.8 10 3/uLTBHMONOCYTES ABSOLUTE AUTO0.50.3 - 0.8 10 3/uLTBHTBH EO # 0.00.0 - 0.7 10 3/uLTBHBASOPHILS ABSOLUTE AUTO0.00.0 - 0.1 10 3/uLTBHIMMATURE GRANULOCYTES ABS AUTO0.04(H)0.00 - 0.03 10 3/uLTBHSpecimen (Source)Anatomical Location / LateralityCollection Method / VolumeCollection TimeReceived Time 11/16/2024 10:06 AM EDT11/16/2024 10:07 AM EDT Narrative [facility]NC - 11/16/2024 10:30 AM EDT Authorizing ProviderResult TypeResult StatusCorey Rocky DOCLINISYNCFinal Result Performing OrganizationAddressCity/State/ZIP CodePhone Number [facility] from Last 3 Months Insurance * Guarantor: Hesham Avalos AAccount TypeRelation to PatientDate of BirthPhone Billing AddressPersonal/HgmqhjXqac13/26/2001 [address] [place] [address] Care Teams Team MemberRelationshipSpecialtyStart DateEnd Taisha Pena MD [address] [place], [place] [id number] PCP - [facility]05/03/23 Stephanie Sotelo NP [address] [place] [address] PCP - Carloz Eduardo07/16/24
--- OUTSIDE RECORDS SUMMARY | 2025-02-07 16:58 | XMS_ITS | Encounter Summary ---
Author Organization [facility] Address [address] [place] [address] Care Team Providers Care Guest Attendant Name Role Phone Taisha Ortiz MD Primary Care Provider [phone] Stephanie Sotelo MILLWRIGHT SUPERVISOR Unavailable [phone] Encounter Details DateTypeDepartmentCare Team (Latest Contact Info)Opnsudgesyb22/15/2025Bamboo flowsheet CONY Spencer OBGYNikole [address] [place] [address] Kathie Lee PA [address] [facility] [address] [place], [place] [id number] Social History Tobacco UseTypesPacks/DayYears UsedDateSmoking Tobacco: NeverSmokeless [...] relatives?Twice a week05/17/2023How often do you attend orthodoxy or druze services?1 to 4 times per year05/17/2023o you belong to any clubs or organizations such as orthodoxy groups, unions, fraTemnos or athletic ingrid ups, or school groups?No05/17/2023How often do you attend meetings of the clubs or organizations you belong to?Never05/17/2023re you , , , , never , or living with a partner?Hmojidu8805/17/2023 AUDIT-CAnswerDate RecordedQ1: How often do you have a drink containing alcohol? 2-4 times a month05/17/2023Q2: How many drinks containing alcohol do you have on a typical day when you are drinking?3 or Q3: How often do you have six or more drinks on one occasion?Less than nycpryz3405/17/2023Overall Financial Resource Strain (CARDIA)AnswerDate RecordedHow hard is it for you to pay for the very basics like food, housing, medical care, and heating?Not hard at all 05/17/2023HQ-2AnswerDate RecordedPatient Health Questionnaire-2 Score0 05/24/2023[facility] [place] of Occupational Health - Occupational Stress QuestionnaireAnswerDate [...] now)?No05/17/2023CommentsYesSex and Gender InformationValueDate RecordedSex Assigned at OmuvdAatpjd78/23/2023 12:02 PM EDTLegal IuzFvrpdc64/15/2023 11:00 PM EDTGender IdentityFemale 10/07/2022 12:02 PM EDTSexual QgoibgwazkrZvwdnvlm99/23/2023 12:02 PM EDT documented as of this encounter Plan of Treatment DateTypeDepartmentCare Team (Latest Contact Info)Ovreenbcbot69/02/2025 10:30 AM ESTPostpartum Visit [facility] [address] [place] [address] Kathie Lee PA [address] [facility] [place] [address] documented as of this encounter Visit Diagnoses Not on filedocumented in this encounter Care Teams Team MemberRelationshipSpecialtyStart DateEnd Taisha Ortiz MD [address] [place] [address] PCP - GeneralFamily Medicine05/03/23 Stephanie Sotelo NP [address] [place] [address] RELL Eduardo07/16/24documented as of this encounter
--- OUTSIDE RECORDS SUMMARY | 2025-02-07 16:58 | XMS_ITS | Encounter Summary ---
Author Organization [facility] Address [address] [place] [address] Care Team Providers Care Document Reviewer Name Role Phone Dayana Pena MD Primary Care Provider [phone] Stephanie Sotelo OXYGRAPH OPERATOR Unavailable [phone] Encounter Details DateTypeDepartmentCare Team (Latest Contact Info)Irqifpvaupc21/11/2025Clinisync Result Encounter [facility] Unsolicited Provider, [...] week05/17/2023How often do you attend bahai or zoroastrian services?1 to 4 times per year05/17/2023o you belong to any clubs or organizations such as bahai groups, unions, fraternal or athletic ingrid ups, or school groups?No05/17/2023How often do you attend meetings of the clubs or organizations you belong to?Never05/17/2023re you , , , , never , or living with a partner?Keeajlw3505/17/2023 AUDIT-CAnswerDate RecordedQ1: How often do you have a drink containing alcohol? 2-4 times a month05/17/2023Q2: How many drinks containing alcohol do you have on a typical day when you are drinking?3 or Q3: How often do you have six or more drinks on one occasion?Less than qjuznbr4205/17/2023Overall Financial Resource Strain (CARDIA)AnswerDate RecordedHow hard is it for you to pay for the very basics like food, housing, medical care, and heating?Not hard at all 05/17/2023HQ-2AnswerDate RecordedPatient Health Questionnaire-2 Score0 05/24/2023[facility] [place] of Occupational Health - Occupational Stress QuestionnaireAnswerDate [...] now)?No05/17/2023CommentsYesSex and Gender InformationValueDate RecordedSex Assigned at HpwakYzdpxs31/23/2023 12:02 PM EDTLegal KwiVxxecw15/15/2023 11:00 PM EDTGender IdentityFemale 10/07/2022 12:02 PM EDTSexual QgyscuijavtMbpcajck53/23/2023 12:02 PM EDT documented as of this encounter Plan of Treatment DateTypeDepartmentCare Team (Latest Contact Info)Pqdlmfosikg46/02/2025 10:30 AM ESTPostpartum Visit [facility] [address] [place] [address] Kathie Lee PA [address] [facility] [place] [address] documented as of this encounter Procedures Procedure NamePriorityDate/TimeAssociated DiagnosisCommentsUS OB BPP W NON-KBKTNA6701/25/2025 11:11 AM EDT documented in this encounter Results * US OB BPP W NON-STRESS (01/25/2025 11:11 AM EDT)Anatomical Region LateralityModalityOtherSpecimen (Source)Anatomical Location / Laterality Collection Method / VolumeCollection TimeReceived Time01/25/2025 11:11 AM EDT Narrative 01/25/2025 11:14 AM EDT [facility] ?[address] ? [place] [address] ? Ultrasound Report ? Signed ? Patient: STEYER,HESHAM A ?MR#: [id number] ?? : 2000 ?Acct:[id number] ?? Age/Sex: 24 / F ?ADM Date: 10/11/25 ?? Loc: US ? Attending Dr: Britney Smith ? Ordering Physician: Britney Smith ?? Date of Service: 01/25/25 ?? Procedure(s): US OB BPP w non-stress ?? Accession Number(s): [id number] ? cc: Britney Smith; DAYANA PENA ? [facility] ? [address] ? [place] [address] ? Patient Name: ?? HESHAM TAYLOR ? MRN: [facility]:[id number] ? date: 2000 ?Sex: F ?? Assigned Patient Location: FB ?? Current Patient Location: ? Accession/Order Number: [id number] ?? Exam Date: 01/25/2025 ??10:07 ?Report Date: 01/25/2025 ??11:11 ? At the request of: ?? BRITNEY ??NICHOLE ? Procedure: ??US OB BPP w non-stress ? Ultrasound biophysical profile ? INDICATION: Excessive growth ? Findings and impression: 8/8 score biophysical profile and ZEB measures 20.9 ?? cm. ?? heart rate 139 beats per minutes. ? Impression dictated by: Juan M Newman M.D. ??01/25/2025 11:11 AM ? Dictation Location: [place] [address] ? Electronically authenticated by: [id number] ??Y ?? Date: 01/25/2025 ??11:11 ? Dictated By: ?Juan M Newman M.D. ? Signed By: ?01/25/25 1114 ? DD/ 1111 ? TD/TT: ? Sugar Presser: Procedure Note Radiology, Radiologist, MD - 01/25/2025 [place] [address] Ultrasound Report Signed Patient: HESHAM TAYLOR AMR#: [id number] : 2000Acct:[id number] Age/Sex: 24 / FADM Date: 01/25/25 Loc: US Attending Dr: Britney Smith Ordering Physician: Britney Smith Date of Service: 01/25/25 Procedure(s): US OB BPP w non-stress Accession Number(s): [id number] cc: Britney Smith; DAYANA PENA [place] [id number] Patient Name: HESHAM TAYLOR MRN: [id number] date: 2000 Sex: F Assigned Patient Location: [facility] Current Patient Location: Accession/Order Number: [id number] Exam Date: 01/25/2025 10:07 Report Date: 01/25/2025 11:11 At the request of: BRITNEY SMITH Procedure: US OB BPP w non-stress Ultrasound biophysical profile INDICATION: Excessive growth Findings and impression: 11/22 score biophysical profile and ZEB tgzkvrdo86.9 cm. heart rate 139 beats per minutes. Impression dictated by: Juan M Newman M.D. 01/25/2025 11:11 AM Dictation [facility] Electronically authenticated by: [id number] Y Date: 1:11 Dictated By: Juan M Newman M.D. Signed By:01/25/25 1114 DD/ 1111 TD/TT: Sugar Presser: Authorizing ProviderResult TypeResult StatusGeneric External Data Provider CLINISYNC IMAGINGFinal Result documented in this encounter Visit Diagnoses Not on filedocumented in this encounter Care Teams Team MemberRelationshipSpecialtyStart DateEnd Date Dayana Pena MD [address] [place] [address] PCP - GeneralFamily Medicine05/03/23 Stephanie Sotelo NP [address] [place], [place] [address] PCP - [employer]07/16/24documented as of this encounter
--- OUTSIDE RECORDS SUMMARY | 2025-02-07 16:59 | XMS_ITS ---
Author Organization [facility] Address [address] [place] [address] Care Team Providers Care Acid Bleacher Name Role Phone Taisha Ortiz MD Primary Care Provider Stephanie Sotelo TANDEM MILL ROLLER Unavailable [phone] Inpatient Discharge Transitional Care Management (TCM) Status:Closed (Closed) Start date:02/05/2025 Enrollment date:02/06/2025 Enrollment reason:Identified using hospital discharge data End date:02/07/2025 Close reason:Not eligible Overview Patient discharged from [facility] on 02/05. Please contact for hospital TEAGAN and schedule follow-up appointment within 7-14 days. NameMichelle Lou LPN(Responsible Staff)Licensed Practical Nurse [phone] Continued Care and Services Coordination
--- OUTSIDE RECORDS SUMMARY | 2025-02-07 16:59 | XMS_ITS | Encounter Summary ---
Author Organization [facility] Address [address] [place] [address] Care Team Providers Care Retail Shift Supervisor Name Role Phone Taisha Ortiz MD Primary Care Provider [phone] Stephanie Sotelo ANESTHESIOLOGY MEDICAL DOCTOR Unavailable Encounter Details DateTypeDepartmentCare Team (Latest Contact Info)Nnphyiwoxas74/20/2025bstract CONY Spencer OBGYN [address] [place] [address] Don Hidalgo DO [address] [place] [address] Social History Tobacco UseTypesPacks/DayYears UsedDateSmoking Tobacco: NeverSmokeless [...] relatives?Twice a week05/17/2023How often do you attend orthodox or gnosticist services?1 to 4 times per year05/17/2023o you belong to any clubs or organizations such as orthodox groups, unions, fraBreather or athletic ingrid ups, or school groups?No05/17/2023How often do you attend meetings of the clubs or organizations you belong to?Never05/17/2023re you , , , , never , or living with a partner?Mxttxxi9205/17/2023 AUDIT-CAnswerDate RecordedQ1: How often do you have a drink containing alcohol? 2-4 times a month05/17/2023Q2: How many drinks containing alcohol do you have on a typical day when you are drinking?3 or Q3: How often do you have six or more drinks on one occasion?Less than wuwjnjo1305/17/2023Overall Financial Resource Strain (CARDIA)AnswerDate RecordedHow hard is it for you to pay for the very basics like food, housing, medical care, and heating?Not hard at all 05/17/2023HQ-2AnswerDate RecordedPatient Health Questionnaire-2 Score0 02/07/2025[facility] [place] of Occupational Health - Occupational Stress QuestionnaireAnswerDate [...] now)?No05/17/2023CommentsYesSex and Gender InformationValueDate RecordedSex Assigned at UcwdcZckzco56/23/2023 12:02 PM EDTLegal NoyFljzzs22/15/2023 11:00 PM EDTGender IdentityFemale 10/07/2022 12:02 PM EDTSexual BqnjpmcahpzFnomvmqw10/23/2023 12:02 PM EDT documented as of this encounter Plan of Treatment DateTypeDepartmentCare Team (Latest Contact Info)Tuativijvbd40/02/2025 10:30 AM ESTPostpartum Visit [facility] [address] [place] [address] Kathie Lee PA [address] [place] [address] documented as of this encounter Visit Diagnoses Not on filedocumented in this encounter Care Teams Team MemberRelationshipSpecialtyStart DateEnd Taisha Ortiz MD [address] [place] [address] PCP - GeneralFamily Medicine05/03/23 Stephanie Sotelo NP [address] [place] [address] RELL Carty Commercial07/16/24documented as of this encounter
--- OUTSIDE RECORDS SUMMARY | 2025-02-07 16:59 | XMS_ITS | Encounter Summary ---
Author Organization [facility] Address [address] [place] [address] Care Team Providers Care Criminal Court Judge Name Role Phone Taisha Ortiz MD Primary Care Provider [phone] Stephanie Sotelo DIE KEEPER Unavailable [phone] Encounter Details DateTypeDepartmentCare Team (Latest Contact Info)Wbqnrnwvifp94/24/2025Patient Outreach [facility] [address] [place] [phone] Kathie Lou LPN [address] [place] [address] Social History Tobacco UseTypesPacks/DayYears UsedDateSmoking Tobacco: NeverSmokeless [...] relatives?Twice a week05/17/2023How often do you attend adventism or islam services?1 to 4 times per year05/17/2023o you belong to any clubs or organizations such as adventism groups, unions, fraternal or athletic ingrid ups, or school groups?No05/17/2023How often do you attend meetings of the clubs or organizations you belong to?Never05/17/2023re you , , , , never , or living with a partner?Hbrlbbt2105/17/2023 AUDIT-CAnswerDate RecordedQ1: How often do you have a drink containing alcohol? 2-4 times a month05/17/2023Q2: How many drinks containing alcohol do you have on a typical day when you are drinking?3 or Q3: How often do you have six or more drinks on one occasion?Less than grxodcp1505/17/2023Overall Financial Resource Strain (CARDIA)AnswerDate RecordedHow hard is it for you to pay for the very basics like food, housing, medical care, and heating?Not hard at all 05/17/2023HQ-2AnswerDate RecordedPatient Health Questionnaire-2 Score0 02/07/2025[facility] [place] of Occupational Health - Occupational Stress QuestionnaireAnswerDate [...] to sleep or slept in ashelter (including now)?No05/17/2023CommentsNoSex and Gender InformationValueDate RecordedSex Assigned at LlfjeCqrrav40/23/2023 12:02 PM EDTLegal TwwPimszz26/15/2023 11:00 PM EDTGender QnyootjgMwrdgj53/23/2023 12:02 PM EDTSexual LhvtftyauguIbgjwlnq72/23/2023 12:02 PM EDTdocumented as of this encounter Functional Status * Over the past 2 weeks, how often have you been bothered by any of the following problems?QuestionAnswerDate of AssessmentAuthorLittle interest or pleasure in doing thingsNot at all02/07/2025 1:51 PM Kathie Flanagan LPN Feeling down, depressed, or hopelessNot at all02/07/2025 1:51 PM Kathie Flanagan LPNPatient Health Questionnaire-2 Dfeqq932 1:51 PM Kathie Flanagan LPN documented as of this encounter Progress Notes * Kathie Lou LPN - 02/07/2025 1:49 PM EDT Images from the original note were not included. Flowsheet Row Patient Outreach from 02/07/[address] [facility] with Kathie Lou LPN Hospital Information ED, Hospital or Retirement Facility Discharge? Hospital Patient has been contacted within two business days of discharge Yes Diagnosis Discharge Date 02/05/25 Discharge [facility]agement Call Start Time 1340 Admission Date 02/03/25 Medications Discharge medications reviewed and reconciled from hospital? Yes Is the patient having any side effects they believe may be caused by any medication additions or changes? No Does the patient have all medications ordered at discharge? Yes Nursing Interventions No intervention needed Is the patient taking all medications as directed (includes completed medication regime)? Yes Nursing Interventions Nurse provided patient education Appointments Does the patient have a primary care provider? Yes Does the patient have any upcoming specialty appointments? Yes [PPV 03/18/25.] Nursing Interventions Advised patient to keep appointment Self Management Patient Teaching Does the patient have access to their discharge instructions? Yes Nursing Interventions Reviewed instructions with patient What is the patient's perception of their health status since discharge? Improving Is the patient/caregiver able to teach back the hierarchy of who to call/visit for symptoms/problems? PCP, Specialist, Home Health nurse, Urgent Care, ED, 911 Yes Wrap Up Call End Time 1355 TEAGAN Complete. Call to pt. Pt reports pain is controlled with Ibuprofen as ordered. Pt describes bleeding as light lochia and denies large clots. Bowels are regular. Pt denies any depression or difficulty coping a this time. Pt is currently and voices it is going well. Baby saw PEDs 02/06/25. Pt reports she has crib, car seat, clothing and diapers/wipes. Pt denies any questions, concerns or needs today. Pt has PPV 03/18/25. documented in this encounter Plan of Treatment DateTypeDepartmentCare Team (Latest Contact Info)Mjaiprjzpxh06/02/2025 10:30 AM ESTPostpartum Visit [facility] [address] [place] [address] Kathie Lee PA [address] [place] [address] documented as of this encounter Visit Diagnoses Diagnosis (spontaneous vaginal delivery) ([facility] Primary Normal delivery documented in this encounter Care Teams Team MemberRelationshipSpecialtyStart DateEnd Date Taisha Ortiz MD [address] [place], [place] [phone] [facility] - [facility]05/03/23 Stephanie Sotelo NP [address] [place], [place] [address] PCP - Carloz Eduardo07/16/24documented as of this encounter
--- OUTSIDE RECORDS SUMMARY | 2025-02-07 16:59 | XMS_ITS ---
Author Organization [facility] Source Produ ction (ClinicalSummary Clone) Address Unknown Care Team Providers Care Pan Operator Name Role Phone Unavailable Primary Care Physician Unavailab le Results * [UNITY] ANEUPLOIDY NIPT Performed by: [facility] Component Value Range Date Fraction 2.1% 07/17/2024 06:20 am UTCRh(D) NIPTRhD SAKKNYAB43/02/2025 06:20 am UTCSex Chromosome AneuploidyNOT XLUQEBLW43/02/2025 06:20 am UTCMonosomy XLOW RISK <1 in , 06:20 am UTCTrisomy 13LOW RISK <1 in , 06:20 am UTCTrisomy 18LOW RISK <1 in , 06:20 am UTCTrisomy 21LOW RISK <1 in , 06:20 am UTCFetal SexNOT UAXFFTS9707/17/2024 06:20 am UTC EremcnnbvGONBGSVSX62/02/2025 06:20 am UTCFor detailed report, see PDF See PDF07/17/2024 06:20 am UTC07/17/2024 06:20 am UTC Social History Observation Value Start Date End Date
--- OUTSIDE RECORDS SUMMARY | 2025-02-07 17:00 | XMS_ITS | CCD ---
Author Organization [facility] Care Team Providers Care Policy Director Name Role Phone DR DON HIDALGO Admitting [...] Unavailable ROCKY, Don R Referring Unavailable Ashleigh RN HOME CARE, Stephanie Villagran Unavailable ROCKY, DON R Referring Unavailable ROCKY, DON Attending Unavailable ROCKY, DON Attending Unavailable JESUS, KATHIE Attending Unavailable ROCKY, DON Attending Unavailable JESUS, KTAHIE Attending Unavailable ROCKY, DON Attending Unavailable JESUS, KATHIE Attending Unavailable ROCKY, DON Attending Unavailable JESUS, KATHIE Attending Unavailable ROCKY, DON Referring Unavailable BRITNEY SMITH Attending Unavailable LUIS, BRITNEY Attending Unavailable JESUS, KATHIE Attending Unavailable Medications Current Medications MedicationDrug Class(es)DatesSig (Normalized)Sig (Original)blood-glucose meter misc (4 sources)Start: 35-49-3726gmmtu-glucose meter misc Check blood sugar 4-5 times daily, fasting and 1 hour after meals. Use as directed. Dispense per insurance preference. 1 each 04/12/2023 ActiveStart: 43-89-6230zjhif-glucose meter misc Check blood sugar 4-5 times daily, fasting and 1 hour after meals. Use as d irected. Dispense per insurance preference. 1 each 0 04/12/2023 Activecephalexin 500 mg oral capsule (1 source)Cephalosporin AntibacterialStart: 50-03-3125lybl 1 capsule by mouth once dailyKeflex 500 mg Cap 500 mg = 1 cap(s), Oral, Daily, take one day before procedure and take one day after procedure, # 2 cap(s), Refills(s) 0, Pharmacy: [facility] [id number], 163, cm, 08/05/24 13:19:00 EDT, Height/Length Dosing, 100, kg, 08/05/24 13:19:00 EDT, Weight Dosing Start Date: 08/05/24 Status: Ordered Quantity: 2.0 Unit: cap(s) Repeat number: 1ferrous gluconate (20 sources)take 1 dose by mouth once dailyFerrous Gluconate (IRON 27 PO) Take 1 each by mouth Daily Activeferrous sulfate 140 mg extended release oral tablet (5 sources)Start: 82-77-8291zzeihuc sulfate (as elemental iron) 45 mg oral tablet, extended release 27 mg, Oral, Daily, Refills(s) 0 Start Date: 08/05/24 Status: Ordered Repeat number: 1ferrous sulfate (HIGH POTENCY IRON) 27 mg iron tablet Take by mouth. TyvbtlCitret-OiLjji-Sayiw-FA-Kent 3 (Duet DHA 400) 25-1 & 400 MG misc (2 sources)Hcycuk-GjWwmw-Xcsqg-FA-Kent 3 (Duet DHA 400) 25-1 & 400 MG misc Take by mouth. 0 ActivePrenatal Qjyivcbe-Njr-Gh-FA (PRE- PO) (20 sources)take 1 dose by mouth once dailyPrenatal Hrxqqpkm-Kon-Hx-FA (PRE- SIGIFREDO PO) Take 1 each by mouth Daily ActivePrenatal Multivitamins (1 source)Start: 18-83-2629teoe 1 tablet by mouth once dailyPrenatal Multivitamins 1 tab(s), Oral, Daily, Refill(s) 0 Start Date: 07/31/24 Status: Ordered Repeat number: 1prenatal mzu128-gmvg-ghqnb-yf4 (DUET DHA WITH OMEGA-3) 25 mg iron-1 mg -400 mg combo pack (4 sources) gwc541-hlud-pwiqe-yr7 (DUET DHA WITH OMEGA-3) 25 mg iron-1 mg -400 mg combo pack Take by mouth. Activeprenatal qik640-iofv-sqnap-ab0 (DUET DHA WITH OMEGA-3) 25 mg iron-1 mg -400 mg combo pack Take by mouth. 0 Active zmz770-wvls-xszxf-vk7 25 mg iron-1 mg -400 mg combo pack (4 sources) slr629-bemv-qfbit-jd4 25 mg iron-1 mg -400 mg combo pack Take by mouth. Activeprenatal kog618-laqp-ybvqs-tt5 25 mg iron-1 mg -400 mg combo pack Take by mouth. 0 Active Problems Active Problems Problem ClassificationProblemDateDocumented DateEpisodic/ChronicDeficiency and other anemia (1 source)Anemia; Translations: [Anemia, unspecified]72-65-3968Imszbkis Hemorrhage during ; abruptio placenta; placenta previa (10 sources)Placenta previa; Translations: [Complete placenta previa NOS or without hemorrhage, second trimester]Onset: 01-27-2023 Resolved: 152534-28-1972IhstuuqkSlcadnqkyvpbi and screening for infectious disease (1 source)Encounter for screening for human papillomavirus (HPV); Translations: [ENC SCREENING HUMAN PAPILLOMAVIRUS]Onset: 51-95-3867GrkgmtzoSonxs complications of (1 source)Obesity complicating , second trimester; Translations: [Obesity complicating , second trimester]Onset: 66-80-0018PqeesrkZtlij complications of (2 sources)History of hemorrhage; Translations: [Supervision of with other poor reproductive or obstetric history, second trimester] 83-41-0664ZgmluvuqXfhzw complications of (1 source)Supervision of with other poor reproductive or obstetric history, second trimester; Translations: [Supervision of with other poor reproductive or obstetric history, second trimester]Onset: 10-24-2024 EpisodicOther complications of (6 sources)Excessive growth affecting management of mother; Translations: [Maternal care for excessive growth, third trimester, not applicable or unspecified]64-29-2526YbmaalduVkzbz diseases of bladder and urethra (1 source)Urethral cyst; Translations: [Other specified disorders of urethra] 90-97-2263MlwmgnegJmnrv female genital disorders (1 source)Dyspareunia; Translations: [Unspecified dyspareunia]Onset: 10-07-2024 ChronicOther female genital disorders (1 source)Pain in female genitalia on rgtveoemeia09-05-1241UluaptvFjcsa female genital disorders (1 source)Vaginal discharge; Translations: [Other specified noninflammatory disorders of vagina]21-70-9365ZqvklkblMqowe and delivery including normal (20 sources)First trimester ; Translations: [Encounter for supervision of normal , unspecified, first trimester]15-50-6167RrmknsywTrsui screening for suspected conditions (not mental disorders or infectious disease) (11 sources)Encounter for screening for malignant neoplasm of cervix; Translations: [Patient encounter status]Onset: 59-98-2852AbmsehepGhraeufkvpynhx and other problems of amniotic cavity (4 sources)Polyhydramnios; Translations: [Polyhydramnios, unspecified trimester, not applicable or unspecified]Onset: 878802-50-2551XkpzugsrFaymezdb codes; unclassified (3 sources)Gestation period, 35 weeks; Translations: [35 weeks gestation of ]90-35-8591RvuhalbuKeqlmyoq codes; unclassified (1 source)Gestation period, 11 weeks; Translations: [11 weeks gestation of ]36-17-5583RmlvpctbXnqiadsn codes; unclassified (20 sources)H/O: Disorder; Translations: [Personal history of other complications of , childbirth and the puerperium]Onset: 12-24-2024 77-60-8871RdylejpiRiezkonf codes; unclassified (2 sources)Gestation period, 15 weeks; Translations: [15 weeks gestation of ]02-03-8801OfzyeqvoTppcicxt codes; unclassified (2 sources)Gestation period, 19 weeks; Translations: [19 weeks gestation of ]31-44-8268LsuwjfebJbwnkxmy codes; unclassified (2 sources)Gestation period, 23 weeks; Translations: [23 weeks gestation of ]20-56-4651CpvqkrbpWbxqolcj codes; unclassified (2 sources)Gestation period, 27 weeks; Translations: [27 weeks gestation of ]47-97-0814DwwdmeaiBwxqrruf codes; unclassified (2 sources)Gestation period, 29 weeks; Translations: [29 weeks gestation of ]13-23-7851WujgajwcTsauqiod codes; unclassified (2 sources)Gestation period, 31 weeks; Translations: [31 weeks gestation of ]58-12-1241BncfsnehIhxvwnkd codes; unclassified (2 sources)Gestation period, 33 weeks; Translations: [33 weeks gestation of ]94-06-3051HgwjrocyWuvwlcda codes; unclassified (2 sources)Gestation period, 36 weeks; Translations: [36 weeks gestation of ]98-08-0793EisfqzitWhpxemgd codes; unclassified (2 sources)Gestation period, 37 weeks; Translations: [37 weeks gestation of ]66-26-6329TjksrsizPprpsnmx codes; unclassified (2 sources)Gestation period, 38 weeks; Translations: [38 weeks gestation of ]52-51-7129Epxdphln Past or Other Problems Problem ClassificationProblemDateDocumented DateEpisodic/ChronicMood disorders (4 sources)Mood disordersOnset: 430096-94-9634Irghh complications of (20 sources)Maternal obesity complicating , childbirth and the puerperium, antepartum; Translations: [Obesity complicating , second trimester]Onset: 01-27-2023 Resolved: 429667-15-8581QozmeniKmbawthly cord complication (20 sources)Velamentous insertion of umbilical cord; Translations: [Velamentous insertion of umbilical cord, second trimester]Onset: 01-27-2023 Resolved: 980106-13-0682RcskolvvCWGURUR: Highlighted row has been ruled out!Unclassified (20 sources)No known active cekhpqvf76-35-2402 Results Test NameValueInterpretationReference RangeFacilityUS OB BPP W NON-STRESS on 74-48[place]1188Xfw[place], [place] [address] Ultrasound Report Signed Patient: HESHAM AVALOS MR#: [id number] : 2000 Acct:[id number] Age/Sex: 24 / F ADM Date: 02/01/25 Loc: US Attending Dr: Britney Smith Ordering Physician: Britney Smith Date of Service: 02/01/25 Procedure(s): US OB BPP w non-stress Accession Number(s): [id number] cc: Britney Smith; TAISHA PENA [place] [address] Patient Name: HESHAM AVALOS MRN: [facility]:[id number] date: 2000 Sex: F Assigned Patient Location: [facility] Current Patient Location: Accession/Order Number: [id number] Exam Date: 02/01/2025 10:10 Report Date: 02/01/2025 [...] Atkinson M.D. 02/01/2025 3:04 PM Dictation Location: [place] [address] Electronically authenticated by: [id number] Y Date: 02/01/2025 15:04 Dictated By: Wilfrido Atkinson M.D. Signed By: 02/01/25 1506 DD/ 1504 TD/TT: Bottling Line Attendant:TAadiologlupe, Radiologist, - 02/01/2025 [place] [address] Ultrasound Report Signed Patient: HESHAM AVALOS MR#: [id number] : 2000 Acct:[id number] Age/Sex: 24 / F ADM Date: 02/01/25 Loc: US Attending Dr: Britney Smith Ordering Physician: Britney Smith Date of Service: 02/01/25 Procedure(s): US OB BPP w non-stress Accession Number(s): [id number] cc: Britney Smith; TAISHA PENA [place] [address] Patient Name: HESHAM AVALOS MRN: [id number] date: 2000 Sex: F Assigned Patient Location: [facility] Current Patient Location: Accession/Order Number: [id number] Exam Date: 02/01/2025 10:10 Report Date: 02/01/2025 [...] Atkinson M.D. 02/01/2025 3:04 PM Dictation Location: [place] [address] Electronically authenticated by: [id number] Y Date: 02/01/2025 15:04 Dictated By: Wilfrido Atkinson M.D. Signed By: 02/01/25 1506 DD/ 1504 TD/TT: Bottling Line Attendant: [facility] HealthcareRadiology Study observation (narrative)[facility] HealthcareUS OB BPP W NON-STRESSOrdered By: Radiologist Radiology on 22-20-7677[facility] Work Phone: Urinalysis macro (dipstick) panel (U)on 01-29-2025 Bilirubin, UANegativeNegative - 4(70) +++ mg/dLNOMS HealthcareBlood, UANegative Negative - 50 Eulogio/mcLNOMS HealthcareClarity, UAClearNOMS HealthcareColor, UA YellowNOMS HealthcareGlucose, UANegativeNegative - 2000(110) ++++ mg/dLNOMS HealthcareInterpretation and review of laboratory resultsAbnormalNONM Healthcare Ketones, UAPositiveNegative - 160(16) ++++ mg/dLNOMS HealthcareLeukocytes, UA NegativeNegative - 500+++ Rufina/mcLNOMS HealthcareNitrite, UANegativeNegative - PositiveNOMS HealthcarepH, UA6.05 - 9NOMS HealthcareProtein, UAPositiveNegative - 2000(20) ++++ mg/dLNOMS HealthcareSpec Grav, UA1.0201 - 1.03[facility] Urobilinogen, UA2.00.2 - 12 mg/dLNOMS HealthcareNOMS HealthcareUS OB BPP W NON-STRESSon 71-90-9221HlxColumb[place], [place] [address] Ultrasound Report Signed Patient: HESHAM AVALOS MR#: [id number] : 2000 Acct:[id number] Age/Sex: 24 / F ADM Date: 01/25/25 Loc: US Attending Dr: Britney Smith Ordering Physician: Britney Smith Date of Service: 01/25/25 Procedure(s): US OB BPP w non-stress Accession Number(s): [id number] cc: Britney Smith; TAISHA PENA [address] [address] Patient Name: HESHAM AVALOS MRN: [id number] date: 2000 Sex: F Assigned Patient Location: [facility] Current Patient Location: Accession/Order Number: [id number] Exam Date: 01/25/2025 10:07 Report Date: 01/25/2025 11:11 At the request of: BRITNEY SMITH Procedure: US OB BPP w non-stress Ultrasound biophysical profile INDICATION: Excessive growth Findings and impression: 11/22 score biophysical profile and ZEB measures 20.9 cm. heart rate 139 beats per minutes. Impression dictated by: Juan M Newman M.D. 01/25/2025 11:11 AM Dictation Location: [place] [address] Electronically authenticated by: [id number] Y Date: 01/25/2025 11:11 Dictated By: Juan M Newman M.D. Signed By: 01/25/25 1114 DD/ 1111 TD/TT: Bottling Line Attendant:TBHRadiology, Radiologist, MD - 01/25/2025 [place] [address] Ultrasound Report Signed Patient: HESHAM AVALOS MR#: [id number] : 2000 Acct:[id number] Age/Sex: 24 / F ADM Date: 01/25/25 Loc: US Attending Dr: Britney Smith Ordering Physician: Britney Smith Date of Service: 01/25/25 Procedure(s): US OB BPP w non-stress Accession Number(s): [id number] cc: Britney Smith; TAISHA PENA [place] [id number] Patient Name: HESHAM AVALOS MRN: [id number]:[id number] date: 2000 Sex: F Assigned Patient Location: [facility] Current Patient Location: Accession/Order Number: [id number] Exam Date: 01/25/2025 10:07 Report Date: 01/25/2025 11:11 At the request of: BRITNEY SMITH Procedure: US OB BPP w non-stress Ultrasound biophysical profile INDICATION: Excessive growth Findings and impression: 11/22 score biophysical profile and ZEB measures 20.9 cm. heart rate 139 beats per minutes. Impression dictated by: Juan M Newman M.D. 01/25/2025 11:11 AM Dictation Location: [place] [address] Electronically authenticated by: [id number] Y Date: 01/25/2025 11:11 Dictated By: Juan M Newman M.D. Signed By: 01/25/25 1114 DD/ 1111 TD/TT: Bottling Line Attendant: [facility] HealthcareRadiology Study observation (narrative)[facility] HealthcareUS OB BPP W NON-STRESSOrdered By: Radiologist Radiology on 62-93-0658[facility] Work Phone: Urinalysis macro (dipstick) panel (U)on 01-23-2025 Bilirubin, UANegativeNegative - 4(70) +++ mg/dLNOMS HealthcareBlood, UAPositive Negative - 50 Eulogio/mcLNOMS HealthcareComment on above:3+Clarity, UAClearNOMS HealthcareColor, UAYellowNOMS HealthcareGlucose, UANegativeNegative - 2000(110) ++++ mg/dLNOMS HealthcareInterpretation and review of laboratory resultsAbnormal [facility] HealthcareKetones, UANegativeNegative - 160(16) ++++ mg/dLNOMS Healthcare Leukocytes, UANegativeNegative - 500+++ Rufina/mcLNOMS HealthcareNitrite, UA NegativeNegative - PositiveNOMS HealthcarepH, UA6.55 - 9N[facility] HealthcareProtein, UANegativeNegative - 2000(20) ++++ mg/dLNOMS HealthcareSpec Grav, UA1.021 - 1.03 [facility] HealthcareUrobilinogen, UA0.20.2 - 12 mg/dLNOMS HealthcareNOMS Healthcare STREP GP B CULTURE+RFLXon 64-69-9645BWXRJ GP B CULTURE+RFLX Strep Gp B Culture+Rflx NOM[facility] HealthcareSTREP GP B CULTURE+RFLXNegativeNOMS HealthcareSTREP GP B CULTURE+RFLXCenters for Disease Control and Prevention (CDC) andNOMS Healthcare STREP GP B CULTURE+RFLXAmerican Congress of Obstetricians and GynecologistsNONM HealthcareSTREP GP B CULTURE+RFLX(ACOG) guidelines for prevention of group BNOMS HealthcareSTREP GP B CULTURE+RFLXstreptococcal (GBS) disease specify co-collection ofNOMS HealthcareSTREP GP B CULTURE+RFLXa vaginal and rectal swab specimen to maximizeNOMS HealthcareSTREP GP B CULTURE+RFLXsensitivity of GBS detection. Per the CDC and ACOG,NOMS HealthcareSTREP GP B CULTURE+RFLXswabbing both the lower vagina and rectumNOMS HealthcareSTREP GP B CULTURE+RFLX substantially increases the yield of detectionNOMS HealthcareSTREP GP B CULTURE+RFLXcompared with sampling the vagina alone.N[facility] HealthcareSTREP GP B CULTURE+RFLXPenicillin G, ampicillin, or cefazolin are indicatedNOMS Healthcare STREP GP B CULTURE+RFLXfor intrapartum prophylaxis of GBSNOMS HealthcareSTREP GP B CULTURE+RFLXcolonization. Reflex susceptibility testing should beNOMS HealthcareSTREP GP B CULTURE+RFLXperformed prior to use of clindamycin only on GBSNOMS HealthcareSTREP GP B CULTURE+RFLXisolates from penicillin-allergic women who areNOMS HealthcareSTREP GP B CULTURE+RFLX considered a high risk for anaphylaxis. Treatment withNOMS HealthcareSTREP GP B CULTURE+RFLXvancomycin without additional testing is warranted ifNOMS Healthcare STREP GP B CULTURE+RFLXresistance to clindamycin is noted.NOM[facility] HealthcareSTREP GP B CULTURE+RFLXPerformed at: CB [facility] LincolnNOMS HealthcareSTREP GP B CULTURE+[id number] [place], [place] [id number] HealthcareSTREP GP B CULTURE+RFLXLab Director: Andrade Curry PhD, Phone: [phone] HealthcareCLINISYNCNOMS HealthcareUS OB BPP W NON-STRESSon 18-77-4269Mzg[place] [id number] Ultrasound Report Signed Patient: HESHAM AVALOS MR#: [id number] : 2000 Acct:[id number] Age/Sex: 24 / F ADM Date: 01/18/25 Loc: US Attending Dr: Britney Smith Ordering Physician: Britney Smith Date of Service: 01/18/25 Procedure(s): US OB BPP w non-stress Accession Number(s): [id number] cc: Britney Smith; TAISHA PENA [place] [id number] Patient Name: HESHAM AVALOS MRN: [facility]:[id number] date: 2000 Sex: F Assigned Patient Location: [facility] Current Patient Location: Accession/Order Number: [id number] Exam Date: 01/18/2025 10:14 Report Date: 01/18/2025 12:13 At the request of: BRITNEY SMITH Procedure: US OB BPP w non-stress Biophysical profile. Reason for exam: Excessive growth COMPARISON: 12/14/2024 TECHNIQUE: Transabdominal imaging of the gravid uterus was obtained. 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 ZEB is normal at 17.2 cm. heart rate 158 bpm. US/US OB BPP w non-stress IMPRESSION: BPP 8 out of 8. Impression dictated by: Wayne Murray Jr., D.O. 01/18/2025 12:13 PM Dictation Location: [place] [address] Electronically authenticated by: [id number] Y Date: 01/18/2025 12:13 Dictated By: Wayne Murray M.D. Signed By: 01/18/25 1216 DD/ 1213 TD/TT: Bottling Line Attendant:TAadiology, Radiologist, - 01/18/2025 [place] [address] Ultrasound Report Signed Patient: HESHAM AVALOS MR#: [id number] : 2000 Acct:[id number] Age/Sex: 24 / F ADM Date: 01/18/25 Loc: US Attending Dr: Britney Smith Ordering Physician: Britney Smith Date of Service: 01/18/25 Procedure(s): US OB BPP w non-stress Accession Number(s): [id number] cc: Lakshmi Smith JENNIFER [place] [id number] Patient Name: HESHAM AVALOS MRN: [id number]:[id number] date: 2000 Sex: F Assigned Patient Location: [facility] Current Patient Location: Accession/Order Number: [id number] Exam Date: 01/18/2025 10:14 Report Date: 01/18/2025 12:13 At the request of: BRITNEY SMITH Procedure: US OB BPP w non-stress Biophysical profile. Reason for exam: Excessive growth COMPARISON: 12/14/2024 TECHNIQUE: Transabdominal imaging of the gravid uterus was obtained. 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 ZEB is normal at 17.2 cm. heart rate 158 bpm. US/US OB BPP w non-stress IMPRESSION: BPP 8 out of 8. Impression dictated by: Wayne Murray Jr., D.O. 01/18/2025 12:13 PM Dictation Location: [facility] Electronically authenticated by: [id number] Y Date: 01/18/2025 12:13 Dictated By: Wayne Murray M.D. Signed By: 01/18/25 1216 DD/ 1213 TD/TT: Bottling Line Attendant: [facility] HealthcareRadiology Study observation (narrative)[facility] HospitalUS [facility] BPP W NON-STRESSOrdered By: Radiologist Radiology on 20-96-3928[facility] Work Phone: us OB FOLLOW UP TRANSABDOMINAL APPROACHon 36-65-4777PG OB FOLLOW UP TRANSABDOMINAL APPROACHFINDINGS: Comparison July 05, 2024. A single, live [...] menstrual period. TRANSCRIBED BY: ELECTRONICALLY SIGNED BY: Daniel Frank AvailableComment on above:Order Comment: US OB SCAN FOR GROWTH Estimated Date of Delivery: 02/10/25 Gestational Age as of 12/24/2024: 02a3qCipaaiokck macro (dipstick) panel (U)on 34-42-5100Hzhaqysoq, UANegativeNegative - 4(70) +++ mg/dLNOMS HealthcareBlood, UANegativeNegative - 50 Eulogio/mcLNOMS HealthcareClarity, UAClearNOMS Healthcare Color, UAYellowNOMS HealthcareGlucose, UANegativeNegative - 1999(110) ++++ mg/dL [facility] HealthcareInterpretation and review of laboratory resultsAbnormalNOMS HealthcareKetones, UANegativeNegative - 160(16) ++++ mg/dLN[facility]S Healthcare Leukocytes, UANegativeNegative - 500+++ Rufina/mcLNOMS HealthcareNitrite, UA NegativeNegative - PositiveNOMS HealthcarepH, UA65 - 9NOMS HealthcareProtein, UA 1+Negative - 2000(20) ++++ mg/dLNOMS HealthcareSpec Grav, UA1.021 - 1.03NOMS HealthcareUrobilinogen, UA1.00.2 - 12 mg/dLNOMS HealthcareNOMS Healthcare Urinalysis macro (dipstick) panel (U)on 86-09-9659Erpxawabe, UAPositiveNegative - 4(70) +++ mg/dLNOMS HealthcareComment on above:1+Blood, UANegativeNegative - 50 Eulogio/mcLNOMS HealthcareClarity, UAClearNOMS HealthcareColor, UAYellowNOMS HealthcareGlucose, UANegativeNegative - 1999(110) ++++ mg/dLN[facility]S Healthcare Interpretation and review of laboratory resultsAbnormalNOMS HealthcareKetones, UAPositiveNegative - 160(16) ++++ mg/dLNOMS HealthcareComment on above:Trace Leukocytes, UAPositiveNegative - 500+++ Rufina/mcLNOMS HealthcareComment on above: 1+Nitrite, UANegativeNegative - PositiveNOMS HealthcarepH, UA65 - 9N[facility] HealthcareProtein, UAPositiveNegative - 2000(20) ++++ mg/dLN[facility]S Healthcare Comment on above:1+Spec Grav, UA1.0251 - 1.03NOMS HealthcareUrobilinogen, UA0.2 0.2 - 12 mg/dLNOMS HealthcareNOMS HealthcareUrinalysis macro (dipstick) panel (U)on 92-88-2306Coiuicpya, UANegativeNegative - 4(70) +++ mg/dLN[facility]S Healthcare Blood, UANegativeNegative - 50 Eulogio/mcLNOMS HealthcareClarity, UAClearNOMS HealthcareColor, UAYellowNOMS HealthcareGlucose, UANegativeNegative - 1999(110) ++++ mg/dLNOMS HealthcareInterpretation and review of laboratory resultsAbnormal N[facility] HealthcareKetones, UANegativeNegative - 160(16) ++++ mg/dLN[facility]S Healthcare Leukocytes, UANegativeNegative - 500+++ Rufina/mcLNOMS HealthcareNitrite, UA NegativeNegative - PositiveNOMS HealthcarepH, UA6.55 - 9NOMS HealthcareProtein, UA1+Negative - 1999(20) ++++ mg/dLNOMS HealthcareSpec Grav, UA1.0151 - 1.03NOMS HealthcareUrobilinogen, UA1.00.2 - 12 mg/dLNOMS HealthcareNOMS HealthcareUS OB GROWTHon 08-04-[address] [address] Ultrasound Report Signed Patient: HESHAM AVALOS MR#: [id number] : 2000 Acct:[id number] Age/Sex: 24 / F ADM Date: 12/14/24 Loc: US Attending Dr: Don Hidalgo D.O. Ordering Physician: Don Hidalgo D.O. Date of Service: 12/14/24 Procedure(s): US OB growth Accession Number(s): [id number] cc: Don Hidalgo D.O.; TAISHA PENA [place] [address] Patient Name: HESHAM AVALOS MRN: [facility]:[id number] date: 2000 Sex: F Assigned Patient Location: US Current Patient Location: US Accession/Order Number: [id number] Exam Date: 12/14/2024 09:50 Report Date: 12/14/2024 [...] Atkinson M.D. 12/14/2024 11:17 AM Dictation Location: [place] [address] Electronically authenticated by: [id number] Y Date: 12/14/2024 11:17 Dictated By: Wilfrido Atkinson M.D. Signed By: 12/14/24 1119 DD/ 1117 TD/TT: Bottling Line Attendant:TAadiology, Radiologist, - 12/14/2024 [place] [address] Ultrasound Report Signed Patient: HESHAM AVALOS MR#: [id number] : 2000 Acct:[id number] Age/Sex: 24 / F ADM Date: 12/14/24 Loc: US Attending Dr: Don Hidalgo D.O. Ordering Physician: Don Hidalgo D.O. Date of Service: 12/14/24 Procedure(s): US OB growth Accession Number(s): [id number] cc: Don Hidalgo D.O.; TAISHA PENA [place] [address] Patient Name: HESHAM AVALOS MRN: [id number] date: 2000 Sex: F Assigned Patient Location: US Current Patient Location: US Accession/Order Number: [id number] Exam Date: 12/14/2024 09:50 Report Date: 12/14/2024 [...] Atkinson M.D. 12/14/2024 11:17 AM Dictation Location: [facility] Electronically authenticated by: [id number] Y Date: 12/14/2024 11:17 Dictated By: Wilfrido Atkinson M.D. Signed By: 12/14/24 1119 DD/ 1117 TD/TT: Bottling Line Attendant: [facility] WEST[facility] MASSACHUSETTSVidhya HealthcareRadiology Study observation (narrative)[facility] HospitalUS OB GROWTHOrdered By: Radiologist Radiology on 24-05-4883JNR[facility] Work Phone: Urinalysis macro (dipstick) panel (U)on 12-12-2024 Bilirubin, UANegativeNegative - 4(70) +++ mg/dLNOMS HealthcareBlood, UANegative Negative - 50 Eulogio/mcLNOMS HealthcareClarity, UAClearNOMS HealthcareColor, UA AmberNOMS HealthcareGlucose, UANegativeNegative - 1999(110) ++++ mg/dLNOMS HealthcareInterpretation and review of laboratory resultsAbnormalN[facility]S Healthcare Ketones, UANegativeNegative - 160(16) ++++ mg/dLNOMS HealthcareLeukocytes, UA PositiveNegative - 500+++ Rufina/mcLNOMS HealthcareComment on above:TraceNitrite, UANegativeNegative - PositiveNOMS HealthcarepH, UA65 - 9NOMS HealthcareProtein, UAPositiveNegative - 1999(20) ++++ mg/dLNOMS HealthcareComment on above:1+Spec Grav, UA1.021 - 1.03NOMS HealthcareUrobilinogen, UA0.20.2 - 12 mg/dLNOMS HealthcareNOMS HealthcareUrinalysis macro (dipstick) panel (U)on 11-28-2024 Bilirubin, UA1+Negative - 4(70) +++ mg/dLNOMS HealthcareBlood, UANegative Negative - 50 Eulogio/mcLNOMS HealthcareClarity, UAClearNOMS HealthcareColor, UA YellowNOMS HealthcareGlucose, UANegativeNegative - 2000(110) ++++ mg/dLNOMS HealthcareInterpretation and review of laboratory resultsAbnormalNOMS Healthcare Ketones, UANegativeNegative - 160(16) ++++ mg/dLNOMS HealthcareLeukocytes, UA1+ Negative - 500+++ Rufina/mcLNOMS HealthcareNitrite, UANegativeNegative - Positive NOMS HealthcarepH, UA65 - 9NOMS HealthcareProtein, UA1+Negative - 1999(20) ++++ mg/dLNOMS HealthcareSpec Grav, UA1.0151 - 1.03NONM HealthcareUrobilinogen, UA1.0 0.2 - 12 mg/dLMoberly Regional Medical Center HealthcareALL CBC WITH AUTO DIFFon 11-16-2024 BASOPHILS ABSOLUTE ENHP5VTRA HealthcareBasophils/100 WBC (Bld)0.2 %0.2 - 2.0 % NOMFreeman Heart InstituteEosinophils/100 WBC (Bld)0.2 %Low0.9 - 7.0 %[facility] Erythrocyte distribution width (RBC) [Ratio]13.7 %11.0 - 15.0 %[facility] Hematocrit (Bld) [Volume fraction]32.3 %Low36.0 - 48.0 %[facility] Hemoglobin (Bld) [Mass/Vol]10.6 g/dLLow12.0 - 16.0 g/dLOzarks Community HospitalIMMATURE GRANULOCYTES ABS AUTO0.04HighOzarks Community HospitalImmature granulocytes/100 WBC (Bld) 0.4 %0.0 - 0.5 %[facility] HospitalInterpretation and review of laboratory results AbnormalOzarks Community HospitalLYMPHOCYTES ABSOLUTE AUTO1.5NONevada Regional Medical Center Lymphocytes/100 WBC (Bld)16.2 %Low20.5 - 60.0 %[facility] CenterH (RBC) [Entitic mass]30.9 pg26.7 - 34.0 pgNorthwest Medical CenterHC (RBC) [Mass/Vol]32.8 g/dL29.9 - 35.2 g/dLNorthwest Medical CenterV (RBC) [Entitic vol]94.2 fL81.0 - 99.0 fLOzarks Community HospitalMONOCYTES ABSOLUTE AUTO0.5NONevada Regional Medical CenterMonocytes/100 WBC (Bld)5.8 % 1.7 - 12.0 %[facility] HospitalNEUTROPHILS ABSOLUTE AUTO6.9HighOzarks Community Hospital Neutrophils/100 WBC (Bld)77.2 %High43.0 - 75.0 %[facility] HospitalPlatelet mean volume (Bld) [Entitic vol]10.1 fL9.5 - 13.5 fLOzarks Community HospitalTBH EO #0NOMS HealthcareTB WMC941FENEPhelps Health RBC3.43LowNONevada Regional Medical CenterTB DOY3ARPZNevada Regional Medical CenterCLINISYNCNOMS HealthcareUrinalysis macro (dipstick) panel (U)on 75-88-4502Lbarjilkw, UANegativeNegative - 4(70) +++ mg/dLNOMS HealthcareBlood, UANegativeNegative - 50 Eulogio/mcLNOMS HealthcareClarity, UAClearNOMS Healthcare Color, UAYellowNOMS HealthcareGlucose, UANegativeNegative - 2000(110) ++++ mg/dL N[facility]S HealthcareInterpretation and review of laboratory resultsAbnormalNOMS HealthcareKetones, UANegativeNegative - 160(16) ++++ mg/dLNOMS Healthcare Leukocytes, UAPositiveNegative - 500+++ Rufina/mcLNOMS HealthcareComment on above: SmallNitrite, UANegativeNegative - PositiveNOMS HealthcarepH, UA6.55 - 9NOMS HealthcareProtein, UAPositiveNegative - 2000(20) ++++ mg/dLNOMS Healthcare Comment on above:SmallSpec Grav, UA1.0151 - 1.03NOMS HealthcareUrobilinogen, UA 0.20.2 - 12 mg/dLNOMS HealthcareNOMS HealthcareUrinalysis macro (dipstick) panel (U)on 51-28-3485Fplihebqu, UANegativeNegative - 4(70) +++ mg/dLNOMS Healthcare Blood, UANegativeNegative - 50 Eulogio/mcLNOMS HealthcareClarity, UAClearNOMS HealthcareColor, UAYellowNOMS HealthcareGlucose, UANegativeNegative - 2000(110) ++++ mg/dLNOMS HealthcareInterpretation and review of laboratory resultsNormal NOMS HealthcareKetones, UANegativeNegative - 160(16) ++++ mg/dLNOMS Healthcare Leukocytes, UANegativeNegative - 500+++ Rufina/mcLNOMS HealthcareNitrite, UA NegativeNegative - PositiveNOMS HealthcarepH, UA75 - 9NOMS HealthcareProtein, UA NegativeNegative - 2000(20) ++++ mg/dLNOMS HealthcareSpec Grav, UA1.021 - 1.03 NOMS HealthcareUrobilinogen, UA0.20.2 - 12 mg/dLNOMS HealthcareNOMS Healthcare Ambulatory Visit Summaryon 53-25-7355Qjyvfvqmxt Visit SummaryAmbulatory Visit Summary HESHAM AVALOS :2000 Visit Date:10/07/2024 [...] needed Where: [facility] [address], [place] [address] [phone] Medications What How Much When Instructions Unchanged cephalexin (Keflex 500 mg Cap) 1 Capsules By Mouth Every day take one day before procedure and take one day after procedure Contact prescribing physician if questions or concerns Unchanged ferrous sulfate (ferrous sulfate (as elemental iron) 45 mg oral tablet, extended release)27 Milligram By Mouth Every day Contact prescribing [...] of this condition. In some cases, diagnosing thecause of dyspareunia can be difficult. This condition can be mild, moderate, or severe. Depending on the cause, dyspareunia may get betterwith treatment, but it may return (recur) over [...] care provider who specializes in women's health (services account manager). How is this treated? Treatment for this condition depends on the cause of the condition and your symptoms. Treatment mayinclude: ??? Lubricants, ointments, and creams. ??? Physical therapy. ??? Massage therapy. ??? Hormonal therapy. ??? Medicines to: ? Prevent or fight infection. ? Relieve pain. ? Help numb the area. ? Treat de (more content not included)...GirishUniversity Hospitals Conneaut Medical CenterUrology Office/Clinic Noteon 74-95-9752Oabbdif Office/Clinic NoteUrology Office/Clinic Note Chief Complaint pt here for [...] [facility] [address], [place] [address] [phone] Additional Instructions: Patient Education Dyspareunia, Female I, Chichi Bautista, personally scribed for Dr. Richard on 10/07/2024 08:53:24. . Documentation recorded by the scribe, Chichi Bautista, accurately reflects the services(s) I performed and decisions made by me. Authenticated by Dr. Rihcard on 10/07/2024 08:55:28. Problem List/Past Medical History [...] Seizure: Sister. Immunizations Vaccine Date Status SARSCoV2 mRNA(kjkyloqow-jxrd-ooiwkp) vac 06/03/2021 Recorded SARS-CoV-2 (COVID-19) mRNA BNT-162b2 vax 05/13/2021 Recorded influenza virus vaccine, inactivated 02/01/2021 Recorded hepatitis B pediatric vaccine 10/29/2019 Recorded hepatitis B adult vaccine 05/14/2019 Recorded measles/mumps/rubella/varicella vaccine 04/11/2019 Recorded hepatitis B pediatric vaccine 04/11/2019 Recorded meningococcal conjugate vaccine 11/09/2017 Recorded poliovirus vaccine, inactivated 12/08/2004 Recorded measles/mumps/rubella virus vaccine 12/08/2004 Recorded diphtheria/pertussis, acel/tetanus ped (more content not included)... [facility] HospitalComment on above:Result Comment: Electronically Signed By: Darin RICHARD MD\.br\Date and Time Signed: 10/07/24 08:55 EDT\.br\Electronically Co-Signed By: Chichi Bautista\.br\Date and Time Co-Signed: 10/07/24 08:53 EDTGLUCOSE 1 HOURon 58-57-3607Wleaimb [Mass/Vol]104 mg/dLNINF - 130 mg/dLNOMS HealthcareCLINISYNCNOMS HealthcareUrinalysis macro (dipstick) panel (U)on 67-59-1389Cowhxgblq, UANegativeNegative - 4(70) +++ mg/dLNOMS HealthcareBlood, UANegativeNegative - 50 Eulogio/mcLNOMS HealthcareClarity, UAClear NOMS HealthcareColor, UAYellowNOMS HealthcareGlucose, UANegativeNegative - 2000(110) ++++ mg/dLNOMS HealthcareInterpretation and review of laboratory resultsAbnormalNOMS HealthcareKetones, UAPositiveNegative - 160(16) ++++ mg/dL NOMS HealthcareComment on above:40mg/dLLeukocytes, UANegativeNegative - 500+++ Rufina/mcLNOMS HealthcareNitrite, UANegativeNegative - PositiveNOMS HealthcarepH, UA65 - 9NOMS HealthcareProtein, UANegativeNegative - 2000(20) ++++ mg/dLNOMS HealthcareSpec Grav, UA1.0151 - 1.03NOMS HealthcareUrobilinogen, UA0.20.2 - 12 mg/dLNOMS HealthcareNOMS HealthcareUrinalysis macro (dipstick) panel (U)on 35-93-5217Bngvfxgqj, UAPositiveNegative - 4(70) +++ mg/dLNOMS HealthcareComment on above:smallBlood, UANegativeNegative - 50 Eulogio/mcLNOMS HealthcareClarity, UA ClearNOMS HealthcareColor, UAYellowNOMS HealthcareGlucose, UANegativeNegative - 2000(110) ++++ mg/dLNOMS HealthcareInterpretation and review of laboratory resultsAbnormalNOMS HealthcareKetones, UAPositiveNegative - 160(16) ++++ mg/dL NOMS HealthcareComment on above:15mg/dLLeukocytes, UAPositiveNegative - 500+++ Rufina/mcLNOMS HealthcareComment on above:smallNitrite, UANegativeNegative - PositiveNOMS HealthcarepH, UA7.55 - 9NOMS HealthcareProtein, UAPositiveNegative - 2000(20) ++++ mg/dLNOMS HealthcareComment on above:100mg/dLSpec Grav, UA1.0151 - 1.03NOMS HealthcareUrobilinogen, UA1.00.2 - 12 mg/dLNOMS HealthcareNOMS HealthcareAmbulatory Visit Summaryon 64-60-1432Qelgbkqbyo Visit Summary Ambulatory Visit Summary HESHAM AVALOS :2000 Visit Date:08/05/2024 Ambulatory Visit Instructions Your Diagnosis Urethral cyst Your Care Team Attending Physician - TINO MACK, Darin Cummins Primary Care Physician - ANDREA MACK, JIM Neil Referring Physician - Don HIDALGO DO This [...] [facility] [address] , [place] [phone] Medications What How Much When Instructions Unchanged ferrous sulfate (ferrous sulfate (as elemental iron) 45 mg oral tablet, extended release)27 Milligram By Mouth Every day Contact prescribing [...] including vitamins, herbs, eye drops, creams, and bdez-bbc-hngfrhj medicines. ??? Any problems you or family [...] tells you to take them. ??? Taking tgjn-ghk-chcxesp medicines, vitamins, herbs, and supplements. Tests You [...] the area (local ane (more content not included)...Normal [facility] CenterUrology Office/Clinic Noteon 78-91-9100Pgtsmuk Office/Clinic NoteUrology Office/Clinic Note Chief Complaint New patient , [...] URL [facility] [address], [place] [address]- [phone] Additional Instructions: schedule cystoscopy Patient Education Cystoscopy [...] Grandparent. Heart failure: Grandparent. Hypertension: Grandparent. Seizure: Sister.[facility] HospitalComment on above:Result Comment: Electronically Signed By: Darin RICHARD MD\.br\Date and Time Signed: 08/05/24 13:46 EDT\.br\Electronically Co-Signed By: Chicih Bautista\.br\Date and Time Co-Signed: 08/05/24 13:44 EDTRECURRENT VAGINITIS (HTRX)on 80-87-5105BCCCUCGFC ZFZZQGI4QKRO HealthcareATOPOBIUM VAGINAENot detectedNOMS HealthcareBVAB 2,3 (BACTERIAL VAGINOSIS ASSOCIATED BACTERIA 2, 3); MOBILUNCUS TBB0TFQC HealthcareBVAB 2,3 (BACTERIAL VAGINOSIS ASSOCIATED BACTERIA 2, 3); MOBILUNCUS SPPNot detectedNOMS HealthcareCANDIDA ALBICANS, PARAPSILOSIS, TMXAJDUIMF7VHKI HealthcareCANDIDA ALBICANS, PARAPSILOSIS, TROPICALISNot detected NOMS HealthcareCANDIDA GBWXJVBP7NPEI HealthcareCANDIDA GLABRATANot detectedNOMS HealthcareCANDIDA QKNAQS6FNOM HealthcareCANDIDA KRUSEINot detectedNOMS HealthcareCHLAMYDIA DEYRBFNBGWR9IWUE HealthcareCHLAMYDIA TRACHOMATISNot detected NOMS HealthcareGARDNERELLA YTXVZUJCA6DAEY HealthcareGARDNERELLA VAGINALISNot detectedNOMS HealthcareMEGASPHAERA (TYPES 1, 2)0NOMS HealthcareMEGASPHAERA (TYPES 1, 2)Not detectedNOMS HealthcareMYCOPLASMA VGHCTOZHWG4CMAX Healthcare MYCOPLASMA GENITALIUMNot detectedNOMS HealthcareNEISSERIA GWTEBHPGTXU5CDKY HealthcareNEISSERIA GONORRHOEAENot detectedNOMS HealthcareTRICHOMONAS VAGINALIS0 NOMS HealthcareTRICHOMONAS VAGINALISNot detectedNOMS HealthcareNOMS Healthcare Urinalysis macro (dipstick) panel (U)on 13-25-8209Svshncyis, UANegativeNegative - 4(70) +++ mg/dLNOMS HealthcareBlood, UANegativeNegative - 50 Eulogio/mcLNOMS HealthcareClarity, UAClearNOMS HealthcareColor, UAYellowNOMS HealthcareGlucose, UANegativeNegative - 2000(110) ++++ mg/dLNONM HealthcareInterpretation and review of laboratory resultsAbnormalNOMS HealthcareKetones, UAPositiveNegative - 160(16) ++++ mg/dLNONM HealthcareComment on above:traceLeukocytes, UANegative Negative - 500+++ Rufina/mcLNOMS HealthcareNitrite, UANegativeNegative - Positive NOMS HealthcarepH, UA6.55 - 9NOMS HealthcareProtein, UATraceNegative - 2000(20) ++++ mg/dLNOMS HealthcareSpec Grav, UA1.031 - 1.03NOMS HealthcareUrobilinogen, UA0.20.2 - 12 mg/dLNOMS HealthcareNOMS HealthcareFetal Free Cell DNAOrdered By: Pao Fu on 70-80-0574OntLnajuq Health SystemBOX TESTon 05-77-1552IYB TEST SENT OUTUNHardin County Medical CenterIiiphkjhlfCQX1SOGGLIOMS EtkatzpnudZMC340/[facility] UNITY BOX CLINISYNCDrug Screen, Urineon 21-10-3785Wyxbvpkusoy/MethamphetamineNegative [facility] Centeredica Health SystemBarbituratesNegativeProMedica Health System BenzodiazepinesNegativeProMedica Health SystemCocaine MetaboliteNegative [facility] SystemMethadoneNegativeNortheastern Vermont Regional HospitalMedinv Health SystemOpiatesNegative [facility] Health SystemOxycodoneNegativeTrumbull Regional Medical Center SystemPhencyclidine NegativeGalion HospitalThc Marijuana, UrineNegativeTrumbull Regional Medical Center SystemHIV 1&2 AB/AG Screen (P24 AG)on 28-15-5484MLV 1&2 AB/AGNon-Reactive [facility] SystemHepatitis B surface antigenon 57-69-3279Gasgcnjoa B Surface AntigenNegativeTrumbull Regional Medical Center SystemHepatitis C(HCV) Ab w/ Reflex to PCRon 32-57-4338JBH Ab Ql (S)Non-ReactiveTrumbull Regional Medical Center SystemNo Panel Informationon 88-97-4021AVEGOzarks Community HospitalRubella IGG immune statuson 07-08-2024 Rubella immune IgGIMMUNEProSelect Medical [facility] - Dublinyphilis Total(Unknown Syphilis Status)on 91-21-6301FzzdrdlyQih-ReactiveTrumbull Regional Medical Center SystemType and screenon 18-97-5764Jxc/Rh(D)PositiveProUniversity Hospitals Parma Medical CenterUS OB TRANSVAGINALon 07-88-8987SG OB TRANSVAGINALEXAM: US OB TRANSVAGINAL HISTORY: Dating. COMPARISON: None [...] II, MD, PHD at 05-Jul-2024 08:37:00 PM [facility]-[place]er TeleradiologyNormalNot AvailableComment on above:Order Comment: US OB TRANSVAGINAL No LMP recorded.Cytology Cervical or vaginal smear or scraping studyon 82-61-5954QVPPSaint Luke's Hospital ACOG PANEL 2: 21 to 29on 03-04-2022..NormalThe Riverview Health InstituteComment on above:Performed By: #### [id number] #### [facility] [address] [place] [address] Dr. Anthony Padilla Gdln ACOG Olwdedv29-76ZoiutoBtpCincinnati Shriners HospitalComment on above:Performed By: #### [id number] #### [facility] [address] [place] [address] Dr. Anthony NewtonDIAGNOSIS:CommentNormNationwide Children's HospitalComment on above: Result Comment: NEGATIVE FOR INTRAEPITHELIAL LESION OR MALIGNANCY. THIS SPECIMEN WAS RESCREENED PART OF OUR CIGARETTE MAKING MACHINE CATCHER PROGRAM.Performed By: #### [id number] #### [facility] [address] [place] [address] Dr. Anthony NewtonMethodology:CommentNoCincinnati Shriners HospitalComment on above: Result Comment: This liquid based ThinPrep(R) pap test was screened with the use of an image guided system.Performed By: #### [id number] #### [facility] [address] [place] [address] Dr. Anthony NewtonNote:CommentGalion Community Hospital on above:Result Comment: The Pap smear is a screening test designed to aid in the detection of premalignant and malignant conditions of the uterine cervix. It is not a diagnostic procedure and should not be used as the sole means of detecting cervical cancer. Both false-positive and false-negative reports do occur. .Performed By: #### [id number] #### [facility] [address] [place] [address] Dr. Anthony NewtonPerformed by:[facility] on above: Result Comment: Lana Connell, CytotechnologistPerformed By: #### [id number] #### [place] [address] Dr. Anthony NewtonQC reviewed by:[facility] on above:Result Comment: Taisha Maria, Cake Inspector (ASCP)Performed By: #### [id number] #### [place] [address] Dr. Anthony NewtonReflex Criteria:CommentGalion Community Hospital on above:Result Comment: The HPV DNA reflex criteria were not met with this specimen result therefore, no HPV testing was performed. .Performed By: #### [id number] #### [place] [address] Dr. Anthony NewtonSpecimen adequacy:[facility] on above:Result Comment: Satisfactory for evaluation. Endocervical and/or squamous metaplastic cells (endocervical component) are present.Performed By: #### [id number] #### [facility] [address] [place] [address] Dr. Anthony NewtonLab - Toxicology Resultson 57-69-5257Mfr - Toxicology Results [id number]#1.00OTGTSt. Mary's Medical Center Outside Recordson 09-28-2568Jcwfjvk Records [id number]#1.00OTGTSt. Mary's Medical CenterTriage Industrialon 99-66-1283Gbjf Screen CompleteCollectedProMedica Bay Park Hospital Comment on above:Performed By: #### [id number] #### [facility] (DEFAULT) [address] [place] [address] 89163PT Clinical Summaryon 82-13-5276MO Clinical Summary [facility] ? Urgent Care [address] [place] [address] Clinical Summary PERSON INFORMATION Name: HESHAM NEELY Age: 18 Years Sex: FEMALE : 00 MRN: Acct#: Visit Reason: Medical screening exam; PHYSICAL PRE EMPLOYMENT/ [employer] Arrival: 10/03/18 16:20:33Discharge: 10/03/18 16:50:00 LOS: 000 00:30 Check In: 10/03/18 16:20:33 Checkout: 10/03/18 16:50:00 Address: [address] [place] [address] PCP: PROVIDER INFORMATION Provider Role Assigned Unassigned [...] EDUCATION INFORMATION Instructions: Follow-Up: DIAGNOSIS: Patient Understands: Comment:ProMedica Bay Park HospitalED Patient Summaryon 52-24-6088HG Patient Summary [facility] ? Urgent Care [address] [place] [address] PATIENT DISCHARGE INSTRUCTIONS Patient Information Name: HESHAM NEELY Age: 18 Years Date of : 00 Reason For Visit: Medical screening exam; PHYSICAL PRE EMPLOYMENT/ [employer] Arrival Time: 10/03/18 16:20:33 Primary Care Physician: Attending Physician: Paulino Padilla Comment: Patient Education Medication Information: The exam and treatment you received today in the [facility] Emergency Department were for an urgent problem and are not intended as complete care. It is important for you to follow up with a doctor, nurse practitioner, or physician?s wet process miller head assistant for ongoing care. If your symptoms become worse or you donot improve as expected and you are unable [...] so we can reach you if necessary. [facility] Emergency Department has provided you with a complete list of medications post discharge. Please inform your shellfish sorter/provider of your visit and for further instruction on these medications. Any specific questions regarding your chronic medications and dosages should be discussed with your primary care physician(s) and/or pharmacist. Visit Information Visit Diagnosis: Diagnoses This Visit Medical screening exam ([id number]) If you received any narcotics, sedation, or [...] sign any legal documents Reason for Visit: [place] physical Allergies: Substance Reaction Symptoms Type Comments [...] Centers for Disease Control and Prevention December 2013Pro[facility] Hospital Vital Signs Date TimeVital SignValuePerforming IbmcecuauCejbufnn06-59-1043 15:25-0400Body mass index (BMI) [Ratio]39.67 kg/m2Kathie COCHRAN Work Phone: [phone] [place], [place] [address]Mqquwyrbpo07-17-7384 15:25-0400Body wmgobq460.83 kgKathie COCHRAN Work Phone: [phone] [place], [place] [address]Khgddezmsl90-46-5351 15:25-0400Diastolic blood upxhynoh21 mm[Hg]Kathie COCHRAN Work Phone: [phone]-[facility] HospitalVgfytxoqjv47-93-9899 15:25-0400Systolic blood iblcurop407 mm[Hg]Kathie COCHRAN Work Phone: [phone] HospitalOzarks Community HospitalHmdssencea20-21-3899 10:22-0400Body mass index (BMI) [Ratio]39.82 kg/i0BqgkztkrBritney Smith RN HOME CARE Work Phone: [facility] HospitalJnwsyqaaza92-53-6391 10:22-0400Body .23 kgBritney Smith RN HOME CARE Work Phone: [phone] [place], [place] [address]Jneolgwirw55-69-3747 10:22-0400Diastolic blood jaiecrql67 mm[Hg]Britney Smith RN HOME CARE Work Phone: [phone]-[facility] HospitalLuhmbzagld98-18-2872 10:22-0400Systolic blood akfenslv484 mm[Hg]Britney Smith RN HOME CARE Work Phone: [facility] HospitalJuzvwktioe52-90-4293 09:32-0400Body mass index (BMI) [Ratio]39.48 kg/o1IkaywllzBritney Annerly RN HOME CARE Work Phone: [facility] HospitalNtdjkuvwow85-92-5360 09:32-0400Body cokgkk772.33 kgBritney Annerly RN HOME CARE Work Phone: [facility] HospitalGzoljtlelz25-87-0381 09:32-0400Diastolic blood uiojuquf69 mm[Hg]Britney Pimentelly RN HOME CARE Work Phone: [facility] HospitalEhsbuclsjg87-88-4558 09:32-0400Systolic blood rmzahehy413 mm[Hg]Britney Annerly RN HOME CARE Work Phone: [phone] [place], [place] [address]Eiqsswqknf79-64-9780 10:44-0400Body mass index (BMI) [Ratio]39.16 kg/m2Amy Jesus PA Work Phone: [phone] [place], [place] [address]Nemrmolkqd64-45-4193 10:44-0400Body yzmhov263.48 kgAmy Jesus PA Work Phone: [phone] [place], [place] [address]Gfnbbctrnw62-35-5324 10:44-0400Diastolic blood osehnjym11 mm[Hg]Kathie Jesus PA Work Phone: [phone] [place], [place] [address]Leplfwfbuj91-57-4588 10:44-0400Systolic blood mcqjyuhz778 mm[Hg]Kathie Jesus PA Work Phone: [facility] HospitalBbayriifux22-53-6855 10:07-0400Body mass index (BMI) [Ratio]39.31 kg/e6Ovrrw Rocky DO Work Phone: [phone] [place], [place] [address]Izplmegryr81-00-1391 10:07-0400Body .87 kgCorey Rocky DO Work Phone: [phone]-[facility] HospitalQqskqoaybp83-02-6980 10:07-0400Diastolic blood yojeobcy56 mm[Hg]Don Rocky DO Work Phone: [facility] HospitalWnjwylcxqb1741 10:07-0400Systolic blood npwvfwin004 mm[Hg]Don Rocky DO Work Phone: [place] [address]Cecifmwnkj56-60-7783 10:28-0400Body mass index (BMI) [Ratio]38.96 kg/m2Amy Jesus PA Work Phone: [place] [address]Iyocxdhnha89-95-0875 10:28-0400Body .97 kgAmy Jesus PA Work Phone: [facility] HospitalJkpilymkos21-13-6300 10:28-0400Diastolic blood mm[Hg]Kathie Roman PA Work Phone: [place] [address]Niuniqjwmp87-26-4587 10:28-0400Systolic blood mxhhumby613 mm[Hg]Kathie Roman PA Work Phone: [place] [address]Eeflfzhkny16-01-7889 08:48-0400Body mass index (BMI) [Ratio]38.62 kg/d6Hzixi Rocky DO Work Phone: [phone] [place], [place] [address]Hnbbcdfeoa53-37-3045 08:48-0400Body .06 kgCorey Rocky DO Work Phone: [place] [address]Mtrukktxil68-16-0827 08:48-0400Diastolic blood ashcsdui68 mm[Hg]Don Rocky DO Work Phone: [place] [address]Fvaixreowf42-91-0777 08:48-0400Systolic blood renplwoz611 mm[Hg]Don Rocky DO Work Phone: [facility] HospitalGughyfkopc59-84-7073 11:22-0400Body mass index (BMI) [Ratio]38.88 kg/m2Amy Jesus PA Work Phone: [facility] HospitalJgsdszigly32-69-5225 11:22-0400Body cyqyow439.74 kgAmy Jesus PA Work Phone: [facility] HospitalBzeqjksgus19-90-0121 11:22-0400Diastolic blood mm[Hg]Kathie Roman PA Work Phone: [facility] HospitalYsyzmexzcv84-95-0677 11:22-0400Systolic blood orlvdvgn621 mm[Hg]Kathie [place] PA Work Phone: [facility] HospitalUngcedlwce99-68-7963 08:10-0400Body mass index (BMI) [Ratio]38.66 kg/s8Kgdsj Rocky DO Work Phone: [facility] HospitalPdmubsgvmf52-76-5342 08:10-0400Body .17 kgCorey Rocky DO Work Phone: [facility] HospitalKyhacpztkh28-61-7661 08:10-0400Diastolic blood tslpszyh49 mm[Hg]Don Rocky DO Work Phone: [facility] HospitalOfduotsirz02-22-3947 08:10-0400Systolic blood guecbpib750 mm[Hg]Donlupe Reddo DO Work Phone: [facility] HospitalHscupdyead08-18-6741 11:59-0400Body gcufvw006.6 Pk Allen MD Work Phone: [phone] [place], [place] 3027606-09-2025 11:59-0400Body mass index (BMI) [Ratio]38.04 kg/m2Cintia Allen MD Work Phone: [phone] [place], [place] 3027606-09-2025 11:59-0400Body .52 kgCintia Allen MD Work Phone: [phone] [place], [place] 3027606-09-2025 11:59-0400Diastolic blood hegjytye79 mm[Hg]Cintia Allen MD Work Phone: [phone] [place], [place] 3027606-09-2025 11:59-0400Heart rate 90 /minCintia Allen MD Work Phone: [phone] [place], [place] 3027606-09-2025 11:59-0400Systolic blood xligskfg545 mm[Hg]Cintia Allen MD Work Phone: [phone] [place], [place] 3027606-03-2025 13:49-0400Body mass index (BMI) [Ratio]38.28 kg/m2Kathie COCHRAN Work Phone: [facility] HospitalZggcqrdisv67-80-1135 13:49-0400Body ejofzu639.15 kgKathie COCHRAN Work Phone: [facility] HospitalFaqdxjkbey24-61-8650 13:49-0400Diastolic blood rfgjohxe65 mm[Hg]Kathie COCHRAN Work Phone: [facility] HospitalPbttsqnmkk87-77-5600 13:49-0400Systolic blood mm[Hg]Kathie Jesus COCHRAN Work Phone: [facility] HospitalQugbzsdaqi10-93-8515 10:54-0400Body mass index (BMI) [Ratio]37.59 kg/b8Lbvyi Rocky DO Work Phone: [facility] HospitalLfehfulifr86-25-3213 10:54-0400Body .34 kgCorey Rocky DO Work Phone: [facility] HospitalGbozajfxxe58-98-1821 10:54-0400Diastolic blood bhojolzp12 mm[Hg]Don Rocky DO Work Phone: [facility] HospitalGthxotjnxd05-79-4424 10:54-0400Systolic blood orzesudx333 mm[Hg]Don Rocky DO Work Phone: [facility] HospitalXvwtigmwpt42-94-8452 12:54-0400Body mass index (BMI) [Ratio]38.28 kg/w7Bfwhu Rocky DO Work Phone: [facility] HospitalXymmewpylt94-99-8077 12:54-0400Body .15 kgCorey Rocky DO Work Phone: [facility] HospitalSqhqbajgst85-70-4652 12:54-0400Diastolic blood zxdmdgaf52 mm[Hg]Don Rocky DO Work Phone: [facility] HospitalSlqrorngcz34-68-0455 12:54-0400Systolic blood xxkctabv725 mm[Hg]Don Rocky DO Work Phone: [facility] HospitalOpnwedaydj03-98-4752 14:05-0500Body .6 cmChristy Sotelo RN HOME CARE Work Phone: [facility] HospitalSrnuclyyyq57-16-2608 14:05-0500Body mass index (BMI) [Ratio]34.57 kg/e1Lyelbwn Sotelo RN HOME CARE Work Phone: [facility] HospitalJzhzlpscqz19-97-8950 14:05-0500Body uyppho47.35 kgChludmila Whitlocktrick RN HOME CARE Work Phone: [facility] HospitalSuzyoipglj76-68-7411 14:05-0500Diastolic blood odhobrlz05 mm[Hg]Stephanie Blancopatrick RN HOME CARE Work Phone: [facility] HospitalWirbcgqbvm29-04-2990 14:05-0500Heart rate63 /min Stephanie Whitlocktrick RN HOME CARE Work Phone: [facility] HospitalBighjbypuf64-91-4647 14:05-0500Respiratory rate20 /minChrisjordyn WhitlockSotelo RN HOME CARE Work Phone: [facility] HospitalIlqmtkwauv22-42-4521 14:05-5454UvP4% (BldA) [Mass fraction]96 %Stephanie Cortésk RN HOME CARE Work Phone: [facility] HospitalMengptolzl89-15-6338 14:05-0500Systolic blood pbkigyyc799 mm[Hg]Stephanie Cortésk RN HOME CARE Work Phone: [facility] HospitalVqftnjyexz64-94-5650 15:05-0500Body rarnzi809.6 cmDaniella Reina MD Work Phone: [phone] [place], [place] 3027612-27-2023 15:05-0500Body mass index (BMI) [Ratio]37.93 kg/m2Daniella Reina MD Work Phone: [phone] [place], [place] 3027612-27-2023 15:05-0500Body qdzezp131.25 kgDaniella Reina MD Work Phone: [phone] [place], [place] 3027612-27-2023 15:05-0500Diastolic blood enifesff29 mm[Hg]Daniella Reina MD Work Phone: [phone] [place], [place] 3027612-27-2023 15:05-0500Heart rate 96 /minIra Nuno MACK Work Phone: [phone] [place], [place] 3027612-27-2023 15:05-0500Systolic blood axhhpjuy023 mm[Hg]Daniella Reina MD Work Phone: [facility] Encounters Encounter DateEncounter TypeCare ProviderFacilityStart: 02-01-2025 End: 98-72-5431Zrfsxhaas Result EncounterGeneric External Data ProviderNOMS External Department UnsolicitedStart: 02-01-2025 End: 90-68-4799Obthpojqa Result EncounterGeneric External Data ProviderNOMS External Department UnsolicitedStart: 01-29-2025 End: 25-94-4258occpuahiauZXG RAMEYNot AvailableStart: 01-29-2025 End: 77-25-1299Ejelha flowsheetKathie COCHRAN Work Phone: [facility]j OBGYNStart: 01-29-2025 End: 14-35-1976Qlzxge Duyen COCHRAN Work Phone: [facility] [place] [facility]BGYNStart: 01-29-2025 End: 34-63-2975Ixlagarq flow sheetKathie COCHRAN Work Phone: [facility] [place] OBGYNComment on above:Third trimester ([facility]); 38 weeks gestation of ([facility])Start: 01-25-2025 End: 18-98-0256Rnacrmusx Result EncounterGeneric External Data ProviderNOMS External Department UnsolicitedStart: 01-25-2025 End: 88-47-5222Femxdexiz Result EncounterGeneric External Data ProviderNOMS External Department UnsolicitedStart: 01-23-2025 End: 76-43-1622Joyiiv Eder Smith RN HOME CARE Work Phone: [facility] [place] OBGYNStart: 01-23-2025 End: 78-63-7551Lkbtlz Eder Smith RN HOME CARE Work Phone: [facility] Tj OBGYNStart: 01-23-2025 End: 49-42-8911Hbqqjjol flow yDlon Smith RN HOME CARE Work Phone: [facility] [place] OBGYNComment on above:Third trimester ([facility]); 37 weeks gestation of ([facility])Start: 01-23-2025 End: 05-40-6709byfyoupwzfSIGCCKFG EBERLYNot AvailableStart: 01-18-2025 End: 10-81-8962Ieabscguv Result EncounterBritney Smith NP Work Phone: noms External Department UnsolicitedStart: 01-18-2025 End: 15-48-6661Rbsqspbef Result EncounterBritney Smith NP Work Phone: NOCI External Department UnsolicitedStart: 01-14-2025 End: 27-07-0696Onqivokgh Result EncounterGeneric External Data ProviderNOMS External Department UnsolicitedStart: 01-14-2025 End: 02-60-6664Hhaeloqcf Result EncounterGeneric External Data ProviderNOMS External Department UnsolicitedStart: 01-14-2025 End: 63-43-8314Zhsmwcfa flow sheetBritney Smith NP Work Phone: [facility] [place] OBGYNComment on above:Third trimester ([facility]); 36 weeks gestation of ([facility]); History of placental abnormality; Excessive growth affecting management of , antepartum, single or unspecified fetus ([facility])Start: 01-14-2025 End: 55-23-9263xrxukartqxIZXBBSNE EBERLYNot AvailableStart: 01-06-2025 End: 22-33-3068Wuhrzm Duyen COCHRAN Work Phone: NOOJ Tj OBGYNStart: 01-06-2025 End: 54-92-5136Zmnmus Duyen COCHRAN Work Phone: NOTA [place] OBGYNStart: 01-06-2025 End: 07-73-6432Zbqklhdr flow Aleksandr COCHRAN Work Phone: NOLZ [place] OBGYNComment on above:Third trimester ([facility]); 35 weeks gestation of ([facility])Start: 01-06-2025 End: 93-22-8275eqfkxxvymwKZQ RAMEYNot AvailableStart: 12-24-2024 End: 61-39-5900Hzmfbf flowsheetCorey Rocky DO Work Phone: [facility] [place] OBGYNStart: 12-24-2024 End: 09-00-6309Lhniuw flowsheetCorey Rocky DO Work Phone: [facility] [place] OBGYNStart: 12-24-2024 End: 00-26-3689Tqkmcmox flow sheetCorey Rocky DO Work Phone: NOMS Tj OBGYNComment on above:Third trimester ([facility]); 33 weeks gestation of ([facility]); History of placental abnormality; Excessive growth affecting management of , antepartum, single or unspecified fetus ([facility])Start: 12-24-2024 End: 11-80-1286corlpznjhiAZCBG FAZIONot AvailableStart: 12-14-2024 End: 31-61-1812Tnbtnvghb Result EncounterGeneric External Data ProviderNOMS External Department UnsolicitedStart: 12-14-2024 End: 14-81-1425Ugmnupphi Result EncounterGeneric External Data ProviderNOMS External Department UnsolicitedStart: 12-12-2024 End: 73-51-8999Dasyyc Duyen COCHRAN Work Phone: NOMS [place] OBGYNStart: 12-12-2024 End: 93-27-3535Abksqp Duyen COCHRAN Work Phone: [facility] [place] OBGYNStart: 12-12-2024 End: 28-99-3829Ujtageuw flow sheetKathie COCHRAN Work Phone: NOMS Tj OBGYNComment on above:Third trimester ([facility]); 31 weeks gestation of ([facility])Start: 12-12-2024 End: 76-14-6515bxwuplpajuKWM RAMEYNot AvailableStart: 11-28-2024 End: 73-41-3774Euburv flowsheetCorey Rocky DO Work Phone: [facility] [place] [facility]BGYNStart: 11-28-2024 End: 24-42-4116Rehwak flowsheetCorey Rocky DO Work Phone: [facility] OBGYNStart: 11-28-2024 End: 58-45-1596Xkktxqeu flow sheetCorey Rocky DO Work Phone: NOMS Tj OBGYNComment on above:Third trimester ([facility]); 29 weeks gestation of ([facility]); History of placental abnormality; Excessive growth affecting management of in third trimester, single or unspecified fetus ([facility])Start: 11-28-2024 End: 78-58-8811lujdpxnfcnKIKPQ FAZIONot AvailableStart: 11-16-2024 End: 66-64-6708Aeezqecuj Result EncounterGeneric External Data ProviderNOMS External Department UnsolicitedStart: 11-16-2024 End: 00-45-5983Dnixzzjcp Result EncounterGeneric External Data ProviderNOMS External Department UnsolicitedStart: 11-14-2024 End: 04-83-8552Cabafg Duyen COCHRAN Work Phone: [facility] [place] OBGYNStart: 11-14-2024 End: 75-81-8537Qylwam Duyen COCHRAN Work Phone: [facility] [place] OBGYNStart: 11-14-2024 End: 01-79-5789Oezkkfus flow sheetKathie COCHRAN Work Phone: NOMS Tj OBGYNComment on above:Second trimester ([facility]); 27 weeks gestation of ([facility])Start: 11-14-2024 End: 03-28-2462mwysgferqaTUM RAMEYNot AvailableStart: 10-24-2024 End: 03-10-2103gotjfvqjenBNYGO [facility] PPGStart: 10-17-2024 End: 70-37-6295Lsnwci flowsheetCorey Rocky DO Work Phone: NOMS BCP OBStart: 10-17-2024 End: 88-79-9914Htkyxf flowsheetCorey Rocky DO Work Phone: noms BCP OBStart: 10-17-2024 End: 88-99-7658Xeajtcpx flow sheetCorey Rocky DO Work Phone: noms BCP OBComment on above:Second trimester ([facility] 23 weeks gestation of ([facility]); Diabetes mellitus screeningStart: 10-17-2024 End: 18-06-5105rcpygdwyurHDYVU FAZIONot AvailableStart: 10-07-2024 End: 97-25-1479qxudwutbjiStxfhkq R WATERSFacility:EU BellevueStart: 10-07-2024 End: 09-65-7377Wkiuesu encounter procedurePasherita RICHARD [facility] start: 09-23-2024 End: 15-69-2506Mllkae consultation new/estab patient 40 Carlos Eduardo Allen MD Work Phone: [phone]-Xlpsj Medicine at [facility] Comment on above:Obesity affecting in second trimester, unspecified obesity type (Primary Dx)Start: 09-23-2024 End: 04-31-4501Oiplbb William Hernandez CMAMaternal- Medicine at [facility] HospitalComment on above:Polyhydramnios affecting (Primary Dx); Low-lying placenta; Placenta previa in second trimester; Velamentous insertion of umbilical cord in second trimester; Vasa previa, single or unspecified fetus; History of hemorrhage, currently in second trimesterStart: 09-18-2024 End: 59-93-0882Aiotuayvx Result EncounterCorey Rocky DO Work Phone: noms External Department UnsolicitedStart: 09-18-2024 End: 74-75-6835Htaxvdkkh Result EncounterCorey Rocky DO Work Phone: noms External Department UnsolicitedStart: 09-17-2024 End: 79-60-4170Kkjsry flowsheetKathie COCHRAN Work Phone: NOMS BCP OBStart: 09-17-2024 End: 92-38-2950Yzenww Duyen COCHRAN Work Phone: NOMS BCP OBStart: 09-17-2024 End: 54-00-1022ukkusdcpbpVLU JESUSNot AvailableStart: 09-17-2024 End: 60-27-7968Ulvxegpz flow sheetKathie COCHRAN Work Phone: noms BCP OBComment on above:Second trimester ; 19 weeks gestation of ; Screening, , for anatomic surveyStart: 08-20-2024 End: 59-14-4391Tnuqxs flowsheetCorey Rocky DO Work Phone: noms BCP OBStart: 08-20-2024 End: 00-93-4602Wstfea flowsheetCorey Rocky DO Work Phone: noms BCP OBStart: 08-20-2024 End: 09-11-9886fkxjtcnlyfWNODM FAZIONot AvailableStart: 08-20-2024 End: 35-24-0332Ldapaoel flow sheetCorey Rocky DO Work Phone: noms BCP OBComment on above:Second trimester ; 15 weeks gestation of ; Diabetes mellitus screeningStart: 08-05-2024 End: 28-41-8905ulmuxcttutUupohfi R WATERSFacility:EU [place]vueStart: 08-02-2024 End: 80-75-9217Mcihm Mario Allen MD Work Phone: [phone]-Yiwek Medicine at [facility] Start: 23-75-6876syfzbskzbbGjwyvhxg:EU [place]walkStart: 07-23-2024 End: 05-09-7060Yewthhmk Result EncounterCorey Rocky DO Work Phone: noms External Department UnsolicitedStart: 07-23-2024 End: 13-92-8280Wcjevlvb Result EncounterCorey Rocky DO Work Phone: noms External Department UnsolicitedStart: 07-23-2024 End: 69-13-5237Dvqkshsx flow sheetCorey Rocky DO Work Phone: noms BCP OBComment on above:11 weeks gestation of ; First trimester ; History of placental abnormality; Vaginal discharge; Urethral cystStart: 07-23-2024 End: 98-10-4948lahthxriijLCYWD FAZIONot AvailableStart: 07-08-2024 End: 57-56-7255Xjcvjqvwm Result EncounterCorey Rocky DO Work Phone: noms External Department UnsolicitedStart: 07-08-2024 End: 72-65-4430Reqkvlfwf Result EncounterCorey Rocky DO Work Phone: noms External Department UnsolicitedStart: 07-05-2024 End: 77-05-1074oelkibkzwsGZOKQ FAZIONot AvailableStart: 02-52-2041Dsesye flowsheetChristy A Sotelo RN HOME CARE Work Phone: noms FNR FMStart: 76-64-3031Gnrdpf flowsheetChristy A Sotelo RN HOME CARE Work Phone: noms FNR FMStart: 05-24-2023 End: 90-45-9229Zhsiind encounter statusChristy A Sotelo RN HOME CARE Work Phone: [facility] Work Phone: Start: 05-24-2023 End: 05-04-4710Xkbsotto preventive med est patient 18-39 yrsChristy A Sotelo RN HOME CARE Work Phone: noms FNR FMComment on above:Encounter for wellness examination (Primary Dx); Anemia, unspecified typeStart: 04-12-2023 End: 06-16-0067Ehxkkm outpatient visit 25 minutesIra Nuno MACK Work Phone: Maternal Medicine [place]burgComment on above:35 weeks gestation of (Primary Dx); Polyhydramnios affecting pregnancyStart: 02-24-2022 End: 52-68-3702upvdcbnlepBJ DON FAZIOFacility:H1 Procedures DateProcedureProcedure DetailPerforming ClinicianStart: 94-25-1426BS OB BPP W NON-STRESSGeneric External Data ProviderStart: 61-38-2703Bqmsz dip stick/tablet rgnt non-auto w/o micrscpAmy Jesus COCHRAN Work Phone: Start: 89-72-3756PC OB BPP W NON-STRESSGeneric External Data ProviderStart: 62-70-6314Biron dip stick/tablet rgnt non-auto w/o micrscpKristina Luis RN HOME CARE Work Phone: Start: 99-41-6590CW OB BPP W NON-STRESSKristina Luis RN HOME CARE Work Phone: Start: 21-18-9562Kxkui dip stick/tablet rgnt non-auto w/o micrscpKristina Luis RN HOME CARE Work Phone: Start: 97-74-1284OPMIO GP B CULTURE+RFLXGeneric External Data ProviderStart: 29-89-8506Huszc dip stick/tablet rgnt non-auto w/o micrscpAmy Jesus COCHRAN Work Phone: Start: 66-68-2933Yrqoq dip stick/tablet rgnt non-auto w/o micrscpCorey Rocky DO Work Phone: Start: 85-32-5439IG OB GROWTHGeneric External Data ProviderStart: 64-08-3088Eczzc dip stick/tablet rgnt non-auto w/o micrscpAmy Jesus COCHRAN Work Phone: Start: 34-49-8775Xjsfi dip stick/tablet rgnt non-auto w/o micrscpCorey Rocky DO Work Phone: Start: 97-61-9595JDE CBC WITH AUTO DIFFCorey Rocky DO Work Phone: Start: 78-24-1192Nymqc dip stick/tablet rgnt non-auto w/o micrscpAmy Jesus COCHRAN Work Phone: Start: 23-88-3496Mhepv dip stick/tablet rgnt non-auto w/o micrscpCorey Rocky DO Work Phone: Start: 95-10-7493RDKULRW 1 HOURCorey Rocky DO Work Phone: Start: 91-55-1098Vqben dip stick/tablet rgnt non-auto w/o micrscpAmy Jesus PA Work Phone: Start: 59-68-6271Shohu dip stick/tablet rgnt non-auto w/o micrscpCorey Rocky DO Work Phone: Start: 59-29-3990MXJSRVQKN VAGINITIS (HTRX)Don Rocky DO Work Phone: Start: 84-50-1352Whubz dip stick/tablet rgnt non-auto w/o micrscpCorey Rocky DO Work Phone: Start: 88-84-9444Ykqrgrju screenCintia Allen MD Work Phone: Start: 52-21-4935Sejd scrn 1+ class nonchromoNot In System Ref ProvStart: 31-76-2039BZNBN FREE CELL DNA (NON-[place])Not In System Ref ProvStart: 60-29-0565Zxnxmdmlt c antibodyNot In System Ref ProvStart: 74-79-3947HCF 1&2 AB/AG SCREEN (P24 AG)Not In System Ref ProvStart: 07-08-2024 Iaad ia hepatitis b surface antigenNot In System Ref ProvStart: 16-10-7527WMHA AND SCREENNot In System Ref ProvStart: 68-16-2272PQD TESTCorey Rocky DO Work Phone: Start: 52-88-4404Ifjj cerv/vag auto thin layer prep mnl screenCorey Rocky DO Work Phone: Start: 10-49-6666Mfqxskgxaoq observation [Identifier] in Cervix by Cyto Cleveland Reina MD Work Phone: Start: 86-12-3637Lleiq depression screening assessment Daniella Reina MD Work Phone: Start: 37-72-9654Jduswswspq of wisdom toothPatrick RICHARD Mouth carePatrick RICHARD Myringotomy and insertion of T tubePatrick RICHARD TympanostomyPatrick RICHARD Plan of Treatment DateCare ActivityDetailAuthorStart: 71-72-6662KRwC,Tdap and Td Vaccines (6 - Tdap)DTaP,Tdap and Td Vaccines ( - Tdap)[facility] nap- Naturally Attached Parents SystemStart: 09-84-9696Adwkuwsqu for malignant neoplasm of cervixPap SmearProBerger HospitalCantab Biopharmaceuticals SystemStart: 58-64-0913Qarab BMI ScreeningAdult BMI ScreeningProDiley [facility] Center SystemStart: 93-81-6944Xbydqzc ScreeningTobacco ScreeningProDiley Ridge Medical Center System Start: 09-23-2025 End: 65-33-0258BQ MFM with or without consultUS MFM with or without consult Imaging Routine Polyhydramnios affecting Low-lying placenta Placenta previa in second trimester Velamentous insertion of umbilical cord in second trimester Vasa previa, single or unspecified fetus History of hemorrhage, currently in second trimester Expected: 09/23/2025 (Approximate), Expires: 09/23/2025[facility] Work Phone: comment on above:Expected: 09/23/2025 (Approximate), Expires: 09/23/2025Start: 02-05-2025 End: 38-42-8458Iwprsyu encounter bnczafgdf82/22/2025 2:20 PM EDT Routine [facility] [address] [place], [id number] Kathie Roman, PA [address] [place] [address] NOMVidhya [place] OBGYNStart: 01-29-2025 End: 76-80-3214Fftmqif encounter bynecyjux52/15/2025 1:50 PM EDT Routine NOMVidhya ARIASGYN [address] [place], [id number] Kathie Roman PA [address] [place] [address] N[facility]S Tj OBGYNStart: 01-23-2025 End: 36-37-7374Npsxlqj encounter procedureNOMS Tj OBGYNComment on above: ArrivedStart: 01-14-2025 End: 96-39-5093YEHZLPC, GROUP B STREP WITH SUSCEPTIBLITYCULTURE, GROUP B STREP WITH SUSCEPTIBLITY Lab Routine Third trimester ([facility]) Expected: 01/14/2025 (Approximate), Expires: 01/14/2026[facility] Work Phone: comment on above:Expected: 01/14/2025 (Approximate), Expires: 01/14/2026Start: 01-14-2025 End: 87-34-7255SY biophysical profile w non stress testUS biophysical profile w non stress test Imaging Routine Third trimester ([facility]) 36 weeks gestation of ([facility]) History of placental abnormality Excessive growth affecting management of , antepartum, single or unspecified fetus ([facility]) Expected: 01/14/2025 (Approximate), Expires: 07/14/2025[facility] HealthcareComment on above:Expected: 01/14/2025 (Approximate), Expires: 07/14/2025Start: 01-14-2025 End: 24-03-4914Nnxdaqr encounter gqxetftxs40/30/2025 9:20 AM EDT Routine NOMVidhya FRANKLINN [address] [place], [id number] Britney Smith, RN HOME CARE [address] [place] [address] [facility] Tj OBGYNStart: 01-14-2025 End: 88-90-5209Meeehaggzqpa / ancillary services atyvrhvdfl11/30/2025 9:00 AM EDT Ancillary Procedure [facility] [address] [place] [phone] [facility] [place] [facility]BGYNStart: 01-06-2025 End: 54-22-6873Evcupfr encounter procedureNOMS [place] OBGYNComment on above: ArrivedStart: 12-24-2024 End: 39-55-1357HV for pregnancyUS OB follow up transabdominal approach Imaging Routine Excessive growth affecting managementof , antepartum, single or unspecified fetus ([facility]) Expected: 12/24/2024, Expires: 04/25/2025 [facility] Work Phone: comment on above:Expected: 12/24/2024, Expires: 04/25/2025Start: 12-24-2024 End: 85-35-2566Jxqjnqe encounter procedureNOMS [place] OBGYNComment on above: ArrivedStart: 81-63-0184Kjheqemhg vaccinationNOMS HealthcareStart: 12-12-2024 End: 73-06-2116Xjyolqy encounter xvmgwxibt17/28/2025 10:10 AM EDT Routine [facility] [address] [place] [phone] Kathie Roman PA [address] [place] [address] ArrivedNOMS [place] OBGYNComment on above:ArrivedStart: 11-28-2024 End: 93-86-4999QR for pregnancyUS OB follow up transabdominal approach Imaging Routine Third trimester ([facility]) Historyof placental abnormality Excessive growth affecting management of in third trimester, single or unspecified fetus ([facility]) Expected: 11/28/2024, Expires: 03/30/2025 [facility] Work Phone: comment on above:Expected: 11/28/2024, Expires: 03/30/2025Start: 11-28-2024 End: 91-81-1608Bjacohx encounter procedureCONY [place] OBGYNComment on above: ArrivedStart: 11-26-2024 End: 77-67-5876Wugnyxr encounter vmwnczxod87/12/2025 3:00 PM EDT Office Visit [facility] [address] [place] [address] Don Hidalgo, DO [address] [place] [address] NOMS BCP OBStart: 11-14-2024 End: 69-02-7275Rdnqdan encounter procedureNOMS BCP OBComment on above:Arrived Start: 10-24-2024 End: 36-91-0953Ihymfuu encounter tcjybvjee85/10/2025 1:00 PM EDT Appointment Maternal Medicine [address] [place], [place] [phone] Maternal Medicine EmdenStart: 10-17-2024 End: 47-86-3265BZE panel - Blood by Automated countCBC Lab Routine Diabetes mellitus screening Expected: 10/17/2024 (Approximate), Expires: 10/17/2025[facility] Work Phone: comment on above:Expected: 10/17/2024 (Approximate), Expires: 10/17/2025Start: 10-17-2024 End: 70-22-0173Mwsjvogezdb of glucose 1 hour after glucose challenge for glucose tolerance testGlucose tolerance, 1 hour Lab Routine Diabetes mellitus screening Expected: 10/17/2024 (Approximate), Expires: 10/17/2025[facility] HealthcareComment on above:Expected: 10/17/2024 (Approximate), Expires: 10/17/2025Start: 10-17-2024 End: 90-14-1602Rwhfukb encounter sjtnodzwp94/03/2025 10:10 AM EDT Routine [facility] [address] [facility] [place] [address] Don Hidalgo, DO [address] [place] [address] NOMS BCP OBStart: 10-17-2024 End: 78-56-9884Qsvwyjl encounter nvteuxvtr07/03/2025 8:10 AM EDT Routine [facility] [place] [address] Don Hidalgo, DO [address] [place] [address] ArrivedNOSUTTER AMADOR [facility] OBComment on above: ArrivedStart: 09-23-2024 End: 74-06-0344Gufqqyl encounter procedureMercy [facility] US ImagingStart: 09-17-2024 End: 97-73-1704Qdhoavt encounter pakuoofyz05/03/2025 1:30 PM EDT Routine [facility] [address] [facility] [place] [address] Kathie Roman, DIMAS [address] [place] [address] [facility] OBStart: 08-20-2024 End: 72-67-4963Dchqz fetoprotein, maternalAlpha fetoprotein, maternal Lab Routine Second trimester 15 weeks gestation of Expected: 08/20/2024 (Approximate), Expires: 10/20/2024[facility] Work Phone: comment on above:Expected: 08/20/2024 (Approximate), Expires: 10/20/2024Start: 08-20-2024 End: 42-62-0807Tfycqtcquqw of glucose 1 hour after glucose challenge for glucose tolerance testGlucose tolerance, 1 hour Lab Routine Diabetes mellitus screening Expected: 08/20/2024 (Approximate), Expires: 08/20/2025NONM HealthcareComment on above:Expected: 08/20/2024 (Approximate), Expires: 08/20/2025Start: 08-20-2024 End: 01-02-5719Mtezlhv encounter hxikhqqmp23/06/2025 10:20 AM EDT Routine [facility] [address] [place] [id number] Don Hidalgo, DO [address] [place] [address] [facility] OBStart: 08-05-2024 End: 65-92-5601Sfoflpp encounter ioptotlst49/21/2025 2:10 PM EDT Routine [facility] OB [address] [place] [id number] Don Hidalgo, DO [address] [place] [address] [facility] OBStart: 82-52-2999Gwpbz BMI ScreeningAdult BMI ScreeningProBerger Hospitalca Health SystemStart: 41-94-7884Klythnf ScreeningTobacco ScreeningProRandolph [facility] Center Health SystemStart: 20-40-1072JRAXM-19 Vaccine ( season)COVID-19 Vaccine ( season)[facility]: 43-15-8912Qloqzlpdc vaccinationInfluenza Vaccine (#1)[facility] HealthcareStart: 48-99-7774Eymyzhauc for Chlamydia trachomatisChlamydia ScreeningProDiley Ridge [facility] SystemStart: 41-72-5381Bpqfevagv vaccinationInfluenza Vaccine (#1)[facility] HealthcareComment on above:Postponed from 12/16/2022 (Patient Refused)Start: 06-07-2023 End: 60-62-0573ceaijqzjdp40/21/2024 10:30 AM EST Visit [facility] [address] [place] [id number] Kathie Roman, PA [address] [place] [address] [facility] OBStart: 05-24-2023 End: 02-03-8544PFJ W Auto Differential panel - BloodCBC and differential Lab Routine Encounter for wellness examination Anemia, unspecified type Expected: 05/24/2023 (Approximate), Expires: 05/24/2024[facility] HealthcareComment on above: Expected: 05/24/2023 (Approximate), Expires: 05/24/2024Start: 05-24-2023 End: 41-99-2770Nnalrazxjuwlh metabolic 2000 panel - Serum or PlasmaComprehensive metabolic panel Lab Routine Encounter for wellness examination Anemia, unspecified type Expected: 05/24/2023 (Approximate), Expires: 05/24/2024[facility] Healthcare Work Phone: Comment on above:Expected: 05/24/2023 (Approximate), Expires: 05/24/2024Start: 98-83-3413ZUIUE-19 Vaccine ()COVID- 19 Vaccine ()[facility] SystemStart: 47-17-6316Rpaflteii vaccinationOzarks Community HospitalStart: 98-37-9092Mlqjzydhxo ScreeningDepression ScreeningAtrium Health SouthParktart: 08-11-8747Idgqc BMI Follow Up PlanAdult BMI Follow Up PlanAtrium Health SouthParktart: 39-18-5090Mmogzauzhn Screening Depression ScreeningGalion HospitalCHLAMYDIA TRACHOMATIS (GENITO/STI) CHLAMYDIA TRACHOMATIS (GENITO/STI) Lab Routine Vaginal discharge Ordered: 07/23/2024[facility] HealthcareComment on above:Ordered: 07/23/2024Neisseria gonorrhoeae DNA [Presence] in Unspecified specimen by BOONE with probe detection Neisseria gonorrhea DNA probe, direct Lab Routine Vaginal discharge Ordered: 07/23/2024[facility] HealthcareComment on above:Ordered: 07/23/2024SURESWAB(R) ADVANCED VAGINITIS PLUS, TMASURESWAB(R) ADVANCED VAGINITIS PLUS, TMA Pathology and Cytology Routine Vaginal discharge Ordered: 07/23/2024[facility] Healthcare Work Phone: comment on above:Ordered: 07/23/2024 Immunizations Immunization DateImmunizationNotesCare DyiosyedJtorekvo66-05-6502ZSCU-DaL-8 mRNA (zfbffpcpema-ywmx-wcneaax) vaccinePaOncoMed Pharmaceuticalshoang RICHARD [facility]01-27-2022SARS-CoV-2 (COVID-19) mRNA BNT-162b2 vaxDarin RICHARD [facility]10-18-2021Seasonal, quadrivalent, recombinant, injectable influenza vaccine, preservative freeChristy Sotelo RN HOME CARE Work Phone: [facility] HospitalXcihtmoxgn11-20-7995wactfkrsf virus vaccine, unspecified formulationDaniella Reina MD Work Phone: [facility]09-04-2021diphtheria, tetanus toxoids and pertussis vaccineDaniella Reina MD Work Phone: [phone] [place], [place] [address]Kaferm80-47-2697njmdkjium B vaccine, pediatric or pediatric/adolescent dosageDaniella Reina MD Work Phone: [phone] [place] [address] nap- Naturally Attached Parents Vtxsxz40-75-3517dnbqoznjt B vaccine, adult dosageDaniella Reina MD Work Phone: [phone] [place] [address] nap- Naturally Attached Parents Plsqes69-17-3881scowdwnoc B vaccine, pediatric or pediatric/adolescent dosageDaniella Reina MD Work Phone: [phone] [place], [place] [address]12-26-2019measles, mumps, rubella, and varicella virus vaccineDaniella Reina MD Work Phone: [phone] [place], [place] [address]Iinzrp02-74-3293wynhyrltzwshl ACWY vaccine, unspecified formulationLaOncoMed Pharmaceuticalshoang RICHARD [facility]07-26-2018meningococcal oligosaccharide (groups A, C, Y and W-135) diphtheria toxoid conjugate vaccine (MCV4O)Daniella Reina MD Work Phone: [phone] [place] [address] nap- Naturally Attached Parents Zcjdje04-20-1487hywswprkut, tetanus toxoids and acellular pertussis vaccineDaniella Reina MD Work Phone: [phone] [place], [place] 3027608-24-2005measles, mumps and rubella virus vaccineDaniella Reina MD Work Phone: [phone] [place], [place] 3027608-24-2005poliovirus vaccine, Ai Reina MD Work Phone: [phone] [place], [place] 3027608-24-2005poliovirus vaccine, unspecified formulationPatrick PayLease [facility]06-14-2002measles, mumps and rubella virus vaccineDaniella Reina MD Work Phone: [phone]12-07-2001diphtheria, tetanus toxoids and acellular pertussis vaccine, unspecified formulationDaniella Reina MD Work Phone: [phone]12-07-2001DTaP, unspecified formulationPaOncoMed Pharmaceuticalsk PayLe[employer] [facility]12-07-2001haemophilus influenzae type b conjugate and Hepatitis B vaccineDaniella Reina MD Work Phone: [phone]12-07-2001poliovirus vaccine, Ai Reina MD Work Phone: [phone]12-07-2001poliovirus vaccine, unspecified formulationPaAffinity Edge [facility]09-28-2001diphtheria, tetanus toxoids and acellular pertussis vaccine, unspecified formulationDaniella Reina MD Work Phone: [phone]09-28-2001DTaP, unspecified formulationPatrick [employer] [facility]09-28-2001haemophilus influenzae type b vaccine, HbOC conjugateDaniella Reina MD Work Phone: [phone] [place], [place] 30[address]609-28-2001poliovirus vaccine, inactivatedDaniella Reina MD Work Phone: [phone] [place], [place] 3027609-28-2001poliovirus vaccine, unspecified formulationPatrick [employer] [facility]07-09-2001diphtheria, tetanus toxoids and acellular pertussis vaccine, unspecified formulationDaniella Reina MD Work Phone: [phone] [place], [place] [address]07-09-2001DTaP, unspecified formulationDimassherita RICHARD [facility]07-09-2001haemophilus influenzae type b conjugate and Hepatitis B vaccineDaniella Reina MD Work Phone: [phone] [place], [place] [address]Fkzwja94-52-9227wzaotktarp vaccine, inactivatedDaniella Reina MD Work Phone: [phone] [place], [place] [address]Ucxdyd90-99-6589nwhvqefyvl vaccine, unspecified formulationDimasdamarishoang RICHARD [facility]04-27-2001hepatitis B vaccine, pediatric or pediatric/adolescent dosage Daniella Reina MD Work Phone: [phone] [place], [place] [address]NEGATED: Highlighted row has not occurred!25-92-1863nqocgyhlu, injectable, quadrivalent, preservative freeDaniella Reina MD Work Phone: [phone] [place], [place] [address]Comment on above:Deferred: Patient decision Payers DatePayer CategoryPayerPolicy [id number] Health Insurance [id number] Cross Blue ShieldBCBS [id number] - PPOANTHEM Member Subscriber Plan / Payer (Effective 2022- Present) Name: Hesham Avalos Sonya MemberID: [id number] Relation to Subscriber: Spouse Name: Shailesh Avalos Date of : 2000 Address: [address] [place] [address] Payer ID: [id number] (NAIC) Type: Not on file Address: [facility] [address] [place] [id number] 71-21-7283Esjnsyy8.2.840.781362.1.13.693.2.7.3.069511.64797-16-3677Cxstddg JTXPF[id number] 2.840.1.036707.3.579.2.24387-91-5479 [id number] 2.0.1.587315.3.579.[id number] 2.840.1.910347.3.57[id number] 2.0.1.206871.3.57[id number] 2.840.1.371740.3.57[id number] 2.0.1.222989.3.57[id number] 2.840.1.933686.3.57[id number] 2.840.1.599671.3.57[id number] 2.16840.1.670606.3.57[id number] 2.16.840.1.317058.3.579.[id number] 2.840.1.277462.3.57[id number] 2.840.1.108208.3.57[id number] 2.840.1.222743.3.57[id number] 2.840.1.309185.3.579.[id number] 2.0.1.858032.3.57[id number] 2.840.1.216305.3.579.[id number] 2.840.1.032025.3.57[id number] 2.840.1.512647.3.579.2.285849-00-2528Ewlmpeb0736761 2.840.1.242823.3.579.2.726506-70-1655Kkvsdyd6367734 2.840.1.763455.3.579.2.255782-65-6341Iebxmck7146987 2.840.1.098791.3.579.2.334820-57-3775Rckjynv0737331 2.840.1.037391.3.579.2.29[id number] Social History DateTypeDetailFacilityStart: 11-08-2022 End: 50-14-3667Qwlvfwv smoking status NHISNever smoked tobaccoST. GEORGE REGIONAL HOSPITAL Healthcare Start: 11-08-2022 End: 42-26-7685Qdbbjmz use and exposureSmokeless tobacco non-userTrumbull Regional Medical Center SystemStart: 04-12-2023 End: 95-41-5670Khabfbs intakeLifetime non-drinker (finding)[facility] SystemStart: 05-17-2023 End: 96-47-9955Ryhoucc of Social functionNONM HealthcareStart: 05-17-2023 End: 66-56-6905Nqwqkhybcqh, Afraid, Rape, and Kick questionnaire [HARK][facility] HealthcareWithin the last year, have you been afraid of your partner or ex-partner?NoNOMS HealthcareAre you now , , , , never or living with a partner?MarriedNONM HealthcareHow often to you have a drink containing alcohol?2-4 times a monthProRandolph Medical Center Health SystemHow many standard drinks containing alcohol do you have on a typical day?3 or 4[facility] Health SystemHow often do you have 6 or more drinks on 1 occasion?Less than monthlyTrumbull Regional Medical Center SystemStart: 12-93-8498Mgn hard is it for you to pay for the very basics like food, housing, medical care, and heatingNot hard at all [facility] SystemDo you feel stress - tense, restless, nervous, or anxious, or unable to sleep at night because yourmind is troubled all the time - these days [OSQ]Not at allNOMS Healthcare(I/We) worried whether (my/our) food would run out before (I/we) got money to buy more.Never trueNONM Healthcare Start: 78-06-6426ClaiiuvimJlsJpuwng Health SystemStart: 96-13-6265Dyp Assigned At BirthFeGeisinger-Lewistown Hospital SystemStart: 61-74-5457Avwicc identityIdentifies as female gender (finding)[facility] SystemStart: 43-15-3669Kseiwy orientationHeterosexual (finding)[facility] SystemStart: 05-24-2023 End: 79-09-4414Ngxntgv intakeEx-drinker (finding)[facility] HealthcareAre you now , , , , never or living with a partner? Living with partnerGalion HospitalHow hard is it for you to pay for the very basics like food, housing, medical care, and heatingNot very hardProUniversity Hospitals Parma Medical CenterDo you feel stress - tense, restless, nervous, or anxious, or unable to sleep at night because yourmind is troubled all the time - these days [OSQ]Very muchAtrium Health SouthParktart: 37-67-8101Ccuxczvdy74PxiLddaql nap- Naturally Attached Parents [facility] Centertart: 67-17-9571RhzArpqrd (finding)[facility] Health SouthParkexual OrientationExec[facility] NEGATED: Highlighted rowStart: NINFHistory of tobacco usePassive smokerGalion Hospital Medical Equipment Procedure CodeEquipment CodeEquipment Original TextEquipment IdentifierDates Check blood sugar 4-5 times daily, fasting and 1 hour after meals. Use as directed. Dispense per insurance preference.[id number]: strip by miscellaneous route in the morning and 1 strip at noon and 1 strip in the evening and 1 strip before bedtime. Check blood sugar 4-5 times daily, fasting and 1 hour after meals. Use as directed. Dispense per insurance preference.. [id number]: 04-12-2023 Clinical Notes 04-12-2023 to 01-29-2025 Note Date & GynlDrruNuyvdzmc83-73-0981 History of Present illness Narrative* DIMAS Cormier - 01/29/2025 1:50 PM EDT Reason for Appointment: Patient ID: Hesham Avalos is a 24 y.o. female who presents for Routine Visit Patient presents today for Return OB appointment. MEDICATIONS Current Outpatient Medications Medication Instructions Ferrous Gluconate (IRON 27 PO) 1 each, Daily Jgyyinib-Xjl-Pt-FA (PRE- PO) 1 each, Daily ALLERGIES Allergies[1] PROBLEMS Active Ambulatory Problems Diagnosis Date Noted History of placental abnormality 12/24/2024 Resolved Ambulatory Problems Diagnosis Date Noted Obesity affecting in second trimester ([facility]) 01/27/2023 Velamentous insertion of umbilical cord in second trimester ([facility]) 01/27/2023 Past Medical History: Diagnosis Date 6 weeks follow-up ([facility]) HISTORY PAST MEDICAL HISTORY SOCIAL HISTORY Medical [...] ASSESSMENT & PLAN ICD-10-CM 1. Third trimester ([facility]) Z34.93 2. 38 weeks gestation of ([facility]) Z3A.38 POCT urinalysis dipstick manually resulted Return [...] Medical History: Diagnosis Date 6 weeks follow-up ([facility]) [3] Family History Problem Relation Name Age of Onset Hypertension Maternal Grandmother Fior Diabetes Maternal Grandmother Fior Cancer Maternal Grandfather Fior Heart failure Maternal Grandfather Fior Cancer Paternal Grandfather Rajat Seizures Sister Nicole [4] Past Surgical History: Procedure Laterality Date MOUTH SURGERY 2018 MYRINGOTOMY W/ TUBES 2002 documented in this encounterOzarks Community HospitalOewifjdjwp31-83-6066 History of Present illness Narrative* Britney Smith NP - 01/23/2025 10:20 AM EDT Reason for Appointment: Patient ID: Hesham Avalos is a 24 y.o. female who presents for Routine Visit Patient presents today for Return OB appointment. MEDICATIONS Current Outpatient Medications Medication Instructions Ferrous Gluconate (IRON 27 PO) 1 each, Daily Ltpojrfi-Hyh-Cc-FA (PRE- PO) 1 each, Daily ALLERGIES No Known Allergies PROBLEMS Active Ambulatory Problems Diagnosis Date Noted History of placental abnormality 12/24/2024 Resolved Ambulatory Problems Diagnosis Date Noted Obesity affecting in second trimester ([facility]) 01/27/2023 Velamentous insertion of umbilical cord in second trimester ([facility]) 01/27/2023 Past Medical History: Diagnosis Date 6 weeks follow-up ([facility]) HISTORY PAST MEDICAL HISTORY SOCIAL HISTORY Past Medical History: Diagnosis Date 6 weeks follow-up ([facility]) Social History Tobacco Use Smoking status: Never [...] nursing note reviewed. Exam conducted with a frame sample and pattern supervisor present. Vitals: Estimated body mass index is 39.82 kg/m as calculated from the following: Height as of 24: 5' 4 . Weight as of this encounter: 232 lb. BP: 124/72 Patient's last menstrual period was 05/06/2024. ASSESSMENT & PLAN ICD-10-CM 1. Third trimester ([facility]) Z34.93 POCT urinalysis dipstick manually resulted 2. 37 weeks gestation of ([facility]) Z3A.37 Return OB: Patient presents today for [...] of: Britney Smith NP documented in this encounterOzarks Community HospitalBhrgfcydxf87-63-4823 History of Present illness Narrative* Britney Smith NP - 01/14/2025 9:20 AM EDT Reason for Appointment: Patient ID: Hesham Avalos is a 24 y.o. female who presents for Routine Visit Patient presents today for Return OB appointment. MEDICATIONS Current Outpatient Medications Medication Instructions Ferrous Gluconate (IRON 27 PO) 1 each, Daily Kredzwkn-Mfc-Kj-FA (PRE- PO) 1 each, Daily ALLERGIES No Known Allergies PROBLEMS Active Ambulatory Problems Diagnosis Date Noted History of placental abnormality 12/24/2024 Resolved Ambulatory Problems Diagnosis Date Noted Obesity affecting in second trimester ([facility]) 01/27/2023 Velamentous insertion of umbilical cord in second trimester ([facility]) 01/27/2023 Past Medical History: Diagnosis Date 6 weeks follow-up ([facility]) HISTORY PAST MEDICAL HISTORY SOCIAL HISTORY Past Medical History: Diagnosis Date 6 weeks follow-up ([facility]) Social History Tobacco Use Smoking status: Never [...] nursing note reviewed. Exam conducted with a frame sample and pattern supervisor present. Vitals: Estimated body mass index is 39.48 kg/m as calculated from the following: Height as of 24: 5' 4 . Weight as of this encounter: 230 lb. BP: 122/68 Patient's last menstrual period was 05/06/2024. ASSESSMENT & PLAN ICD-10-CM 1. Third trimester ([facility]) Z34.93 POCT urinalysis dipstick manually resulted CULTURE, GROUP B STREP WITH SUSCEPTIBLITY CULTURE, GROUP B STREP WITH SUSCEPTIBLITY 2. 36 weeks gestation of ([facility]) Z3A.36 Patient is doing well but has [...] of: Britney Smith NP documented in this encounterOzarks Community HospitalBairbcofis03-62-3593 History of Present illness Narrative* DIMAS Cormier - 01/06/2025 10:20 AM EDT Reason for Appointment: Patient ID: Hesham Avalos is a 24 y.o. female who presents for Routine Visit Patient presents today for Return OB appointment. MEDICATIONS Current Outpatient Medications Medication Instructions Ferrous Gluconate (IRON 27 PO) 1 each, Daily Bkyqlgel-Dqz-Ac-FA (PRE-SIGIFREDO PO) 1 each, Daily ALLERGIES No Known Allergies PROBLEMS Active Ambulatory Problems Diagnosis Date Noted History of placental abnormality 12/24/2024 Resolved Ambulatory Problems Diagnosis Date Noted Obesity affecting in second trimester ([facility]) 01/27/2023 Velamentous insertion of umbilical cord in second trimester ([facility]) 01/27/2023 Past Medical History: Diagnosis Date 6 weeks follow-up ([facility]) HISTORY PAST MEDICAL HISTORY SOCIAL HISTORY Past Medical History: Diagnosis Date 6 weeks follow-up ([facility]) Social History Tobacco Use Smoking status: Never [...] ASSESSMENT & PLAN ICD-10-CM 1. Third trimester ([facility]) Z34.93 POCT urinalysis dipstick manually resulted 2. 35 weeks gestation of ([facility]) Z3A.35 Return OB: Patient presents today for [...] behalf of: DIMAS Cormier documented in this encounterOzarks Community HospitalNtiwlphfya03-20-2022 History of Present illness Narrative* Brittany Christensen, KRISTOPHER - 12/24/2024 10:00 AM EDT Reason for Appointment: Patient ID: Hesham Avalos is a 24 y.o. female who presents for Routine Visit Patient presents today for Return OB appointment. MEDICATIONS Current Outpatient Medications Medication Instructions Ferrous Gluconate (IRON 27 PO) 1 each, Daily Srsrbenx-Gea-On-FA (PRE-SIGIFREDO PO) 1 each, Daily ALLERGIES No Known Allergies PROBLEMS Active Ambulatory Problems Diagnosis Date Noted History of placental abnormality 12/24/2024 Resolved Ambulatory Problems Diagnosis Date Noted Obesity affecting in second trimester ([facility]) 01/27/2023 Velamentous insertion of umbilical cord in second trimester ([facility]) 01/27/2023 Past Medical History: Diagnosis Date 6 weeks follow-up ([facility]) HISTORY PAST MEDICAL HISTORY SOCIAL HISTORY Past Medical History: Diagnosis Date 6 weeks follow-up ([facility]) Social History Tobacco Use Smoking status: Never [...] nursing note reviewed. Exam conducted with a frame sample and pattern supervisor present. Vitals: Estimated body mass index is 39.31 kg/m as calculated from the following: Height as of 24: 5' 4 . Weight as of this encounter: 229 lb. BP: 124/70 Patient's last menstrual period was 05/06/2024. ASSESSMENT & PLAN ICD-10-CM 1. Third trimester ([facility]) Z34.93 POCT urinalysis dipstick manually resulted 2. 33 weeks gestation of ([facility]) Z3A.33 3. History of placental abnormality Z87.59 [...] of: Don Hidalgo DO documented in this encounterOzarks Community HospitalOwwukdpbrj90-02-7887 History of Present illness Narrative* DIMAS Cormier - 12/12/2024 10:10 AM EDT Reason for Appointment: Patient ID: Hesham Avalos is a 24 y.o. female who presents for Routine Visit Patient presents today for Return OB appointment. MEDICATIONS Current Outpatient Medications Medication Instructions Ferrous Gluconate (IRON 27 PO) 1 each, Daily Xnochwtt-Ygg-Yh-FA (PRE-SIGIFREDO PO) 1 each, Daily ALLERGIES No Known Allergies PROBLEMS Active Ambulatory Problems Diagnosis Date Noted No Active Ambulatory Problems Resolved Ambulatory Problems Diagnosis Date Noted Obesity affecting in second trimester ([facility]) 01/27/2023 Velamentous insertion of umbilical cord in second trimester ([facility]) 01/27/2023 Past Medical History: Diagnosis Date 6 weeks follow-up ([facility]) HISTORY PAST MEDICAL HISTORY SOCIAL HISTORY Past Medical History: Diagnosis Date 6 weeks follow-up ([facility]) Social History Tobacco Use Smoking status: Never [...] ASSESSMENT & PLAN ICD-10-CM 1. Third trimester ([facility]) Z34.93 POCT urinalysis dipstick manually resulted 2. 31 weeks gestation of ([facility]) Z3A.31 Return OB: Patient presents today for [...] behalf of: DIMAS Cormier documented in this encounterOzarks Community HospitalElfstbykuz87-53-2108 History of Present illness Narrative* Franci Boyd LPN - 11/28/2024 8:30 AM EDT Reason for Appointment: Patient ID: Hesham Avalos is a 24 y.o. female who presents for Routine Visit Patient presents today for Return OB appointment. MEDICATIONS Current Outpatient Medications Medication Instructions Ferrous Gluconate (IRON 27 PO) 1 each, Daily Txueyqbg-Mkk-Lf-FA (PRE- PO) 1 each, Daily ALLERGIES No Known Allergies PROBLEMS Active Ambulatory Problems Diagnosis Date Noted No Active Ambulatory Problems Resolved Ambulatory Problems Diagnosis Date Noted Obesity affecting in second trimester ([facility]) 01/27/2023 Velamentous insertion of umbilical cord in second trimester ([facility]) 01/27/2023 Past Medical History: Diagnosis Date 6 weeks follow-up ([facility]) HISTORY PAST MEDICAL HISTORY SOCIAL HISTORY Past Medical History: Diagnosis Date 6 weeks follow-up ([facility]) Social History Tobacco Use Smoking status: Never [...] nursing note reviewed. Exam conducted with a frame sample and pattern supervisor present. Vitals: Estimated body mass index is 38.62 kg/m as calculated from the following: Height as of 11/21/23: 5' 4 . Weight as of this encounter: 225 lb. BP: 118/74 Patient's last menstrual period was 05/06/2024. ASSESSMENT & PLAN ICD-10-CM 1. Third trimester ([facility]) Z34.93 POCT urinalysis dipstick manually resulted 2. 29 weeks gestation of ([facility]) Z3A.29 Patient presents today for a routine [...] of: Don Hidalgo DO documented in this encounterOzarks Community HospitalRzsrvwicme64-45-8233 History of Present illness Narrative* DIMAS Cormier - 11/14/2024 11:20 AM EDT Reason for Appointment: Patient ID: Hesham Avalos is a 24 y.o. female who presents for Routine Visit Patient presents today for Return OB appointment. MEDICATIONS Current Outpatient Medications Medication Instructions Ferrous Gluconate (IRON 27 PO) 1 each, Daily Khpophgu-Aff-Vc-FA (PRE- PO) 1 each, Daily ALLERGIES No Known Allergies PROBLEMS Active Ambulatory Problems Diagnosis Date Noted No Active Ambulatory Problems Resolved Ambulatory Problems Diagnosis Date Noted Obesity affecting in second trimester ([facility]) 01/27/2023 Velamentous insertion of umbilical cord in second trimester ([facility]) 01/27/2023 Past Medical History: Diagnosis Date 6 weeks follow-up ([facility]) HISTORY PAST MEDICAL HISTORY SOCIAL HISTORY Past Medical History: Diagnosis Date 6 weeks follow-up ([facility]) Social History Tobacco Use Smoking status: Never [...] ASSESSMENT & PLAN ICD-10-CM 1. Second trimester ([facility] [facility] Z34.92 POCT urinalysis dipstick manually resulted 2. 27 weeks gestation of ([facility]) Z3A.27 Return OB: Patient presents today for [...] behalf of: DIMAS Cormier documented in this encounterOzarks Community [id number] History of Present illness Narrative* Franci Boyd LPN - 10/17/2024 8:10 AM EDT Reason for Appointment: Patient ID: Hesham Avalos is a 24 y.o. female who presents for Routine Visit Patient presents today for Return OB appointment. MEDICATIONS Current Outpatient Medications Medication Instructions Ferrous Gluconate (IRON 27 PO) 1 each, Daily Dxenluul-Mup-Fj-FA (PRE- PO) 1 each, Daily ALLERGIES No Known Allergies PROBLEMS Active Ambulatory Problems Diagnosis Date Noted No Active Ambulatory Problems Resolved Ambulatory Problems Diagnosis Date Noted Obesity affecting in second trimester ([facility]) 01/27/2023 Velamentous insertion of umbilical cord in second trimester ([facility]) 01/27/2023 Past Medical History: Diagnosis Date 6 weeks follow-up ([facility]) HISTORY PAST MEDICAL HISTORY SOCIAL HISTORY Past Medical History: Diagnosis Date 6 weeks follow-up ([facility]) Social History Tobacco Use Smoking status: Never [...] nursing note reviewed. Exam conducted with a frame sample and pattern supervisor present. Vitals: Estimated body mass index is 38.66 kg/m as calculated from the following: Height as of 11/21/23: 5' 4 . Weight as of this encounter: 225 lb 4 oz. BP: 114/58 Patient's last menstrual period was 05/06/2024. ASSESSMENT & PLAN ICD-10-CM 1. Second trimester ([facility]) Z34.92 POCT urinalysis dipstick manually resulted 2. 23 weeks gestation of ([facility]) Z3A.23 3. Diabetes mellitus screening Z13.1 CBC [...] of: Don Hidalgo DO documented in this encounterOzarks Community [id number] Hospital Discharge instructions Patient Education 10/07/2024 08:53:12 Dyspareunia, Female Dyspareunia, Female Dyspareunia is pain that is associated with sexual activity. This can affect any part of the genitals or lower abdomen. There are many possible causes of this condition. In some cases, diagnosing thecause of dyspareunia can be difficult. This condition can be mild, moderate, or severe. Depending on the cause, dyspareunia may get betterwith treatment, but it may return (recur) over [...] care provider who specializes in women's health (services account manager). How is this treated? Treatment for this condition depends on the cause of the condition and your symptoms. Treatment mayinclude: Lubricants, ointments, and creams. Physical therapy. Massage [...] partner about your condition. General instructions Take xtbk-zyv-sembegk and prescription medicines only as told by [...] sexual activity until your symptoms improve. Take anur-anq-dvfvmio and prescription medicines only as told by [...] provider. Document Revised: 2021 Document Reviewed: 2021 DataContact Patient Education 2023 [employer] Follow Up Care 08/08/2024 12:40:44 With:TINO MACK, Darin Cummins, URL Address: [facility] [address] [place] [address]- [phone] When: only if needed [facility] 06-23-2025 NotePatient Education Obstetrics and Gynecology Dyspareunia, Female Dyspareunia is pain that is associated with sexual activity. This can affect any part of the genitals or lower abdomen. There are many possible causes of this condition. In some cases, diagnosing thecause of dyspareunia can be difficult. This condition can be mild, moderate, or severe. Depending on the cause, dyspareunia may get betterwith treatment, but it may return (recur) over [...] care provider who specializes in women's health (services account manager). How is this treated? Treatment for this condition depends on the cause of the condition and your symptoms. Treatment mayinclude: ??? Lubricants, ointments, and creams. ??? Physical [...] about your condition. General instructions ??? Take udms-kkd-nxdtrun and prescription medicines only as told by [...] activity until your symptoms improve. ??? Take bowj-nzv-jgqdust and prescription medicines only as told by your health care provider. ??? Contact a health care provider if your symptoms get worse or do not improve with treatment. ??? Keep all follow-up visits. This is important. This information is not intended to replace (more content not included)...[facility]06-09-2025 History of Present illness Narrative* Sherrill Hernandez CMA - 09/23/2024 1:00 PM EDT Headache/epigastric pain/blurry vision/swelling? No Cramping/contractions? No Abnormal [...] GENDER Have you been seen here at [facility] in a previous ? No Recent ER visits or hospitalizations? No Bring blood sugar log or meter with you today? (Please bring them with you for every visit at [facility]) n/a Flu vaccine (Feb-June)? No Any concerns that you would like me to mention to the provider today? No * Cintia Allen MD - 09/23/2024 1:00 PM EDT REASON FOR CONSULTATION: History of a result Vasa previa in a previous gestation. She is presentingtoday for anatomic survey. She has a history [...] fasting and 1 hour after meals. Use asdirected. Dispense per insurance preference., Disp: 1 each, Rfl: 0 lancets 31 gauge misc, 1 strip by miscellaneous route in the morning and 1 strip at noon and 1 strip in the evening and 1 strip before bedtime. Check blood sugar 4-5 times daily, fasting and 1 hour after meals. Use as directed. Dispense per insurance preference.., Disp: 100 each, Rfl: 1 [id number]-tblw-wqklr-nq1 (DUET DHA WITH OMEGA-3) 25 mg iron-1 mg -400 mg combo pack, Take by mouth., Disp: , Rfl: ferrous sulfate (HIGH POTENCY IRON) 27 mg iron tablet, Take by mouth. (Patient not taking: Reportedon 09/23/2024), Disp: , Rfl: [id number]-oaely-yx5 25 mg iron-1 mg -400 mg combo [...] 39 weeks 8. Delivery method preferred vaginal. [place] C/S for usual obstetrical indications TIME OF CONSULTATION: We spent 30 minutes with the patient, >50% in discussion and counseling, coordination of care which was mdfh-ak-mstf. [facility] History of Present illness Narrative* DIMAS Cormier - 09/17/2024 1:30 PM EDT Reason for Appointment: Patient ID: Hesham Avalos is a 24 y.o. female who presents for Routine Visit Patient presents today for Acute Visit. and Return OB appointment. MEDICATIONS Current Outpatient Medications Medication Instructions Ferrous Gluconate (IRON 27 PO) 1 each, Daily Fbbcpylp-Ggi-Iw-FA (PRE- PO) 1 each, Daily ALLERGIES No [...] DIMAS Cormier on behalf of: DIMAS Cormier * Franci Boyd LPN - 09/17/2024 1:30 PM EDT Reason for Appointment: Patient ID: Hesham Avalos is a 24 y.o. female who presents for Routine Visit Patient presents today for Return OB appointment. MEDICATIONS Current Outpatient Medications Medication Instructions Ferrous Gluconate (IRON 27 PO) 1 each, Daily Admshebz-Lzd-Tl-FA (PRE-SIGIFREDO PO) 1 each, Daily ALLERGIES No [...] nursing note reviewed. Exam conducted with a frame sample and pattern supervisor present. Vitals: Estimated body mass index [...] behalf of: DIMAS Cormier documented in this encounterOzarks Community [id number] History of Present illness Narrative* Brittany Christensen LPN - 08/20/2024 10:20 AM EDT Reason for Appointment: Patient ID: Hesham Avalos is a 24 y.o. female who presents for Routine Visit Patient presents today for Return OB appointment. MEDICATIONS Current Outpatient Medications Medication Instructions Ferrous Gluconate (IRON 27 PO) 1 each, Daily Fghwpkxp-Prz-Xw-FA (PRE-SIGIFREDO PO) 1 each, Daily ALLERGIES No [...] nursing note reviewed. Exam conducted with a frame sample and pattern supervisor present. Vitals: Estimated body mass index [...] Date of Delivery: 02/10/25. [facility]. Pt given early one hour. Pt to return in 4 weeks for scheduled ob appt. Pt advised to take a baby aspirin. Documented by Brittany Christensen LPN on behalf of: Don Hidalgo DO documented in this encounterOzarks Community [id number] NotePatient Education Urology Cystoscopy Cystoscopy is a procedure [...] including vitamins, herbs, eye drops, creams, and cdjr-pyp-izfcitq medicines. ??? Any problems you or family [...] tells you to take them. ??? Taking umbw-uit-cazwcbg medicines, vitamins, herbs, and supplements. Tests You [...] cystoscope to fill your bladder. The fluid willstretch your bladder so that your health care [...] these instructions at home: Medicines ??? Take imph-umq-wqrfdqk and prescription medicines only as told by your health care provider. ??? If you were prescribed an antibiotic medicine, take it as told by your health care provider. Donot stop taking the antibiotic even if you [...] testing (biopsy) during your (more content not included)...[facility]04-08-2025 History of Present illness Narrative* Brittanypraveen Christensen, KRISTOPHER - 07/23/2024 12:50 PM EDT Reason for Appointment: Patient ID: Hesham Avalos is a 23 y.o. female who presents for No chief complaint on file. Patient presents today for Return OB appointment. MEDICATIONS Current Outpatient Medications Medication Instructions Ferrous Gluconate (IRON 27 PO) 1 each, Daily Clwurmqe-Npw-Hf-FA (PRE- PO) 1 each, Daily ALLERGIES No [...] nursing note reviewed. Exam conducted with a frame sample and pattern supervisor present. Vitals: Estimated body mass index [...] or undercooked meat, and stay away from [facility]. Patient has been consulted regarding any further do's and don'tsof . Patient voiced understanding and all questions and concerns were answered. Cultures ob tained. Pt being referred to [facility] for h/o placental abnormality (vasa previa). Pt has cyst on urethra- referred to urologist Orders Placed This Encounter Procedures CHLAMYDIA TRACHOMATIS (GENITO/STI) Neisseria gonorrhea DNA probe, direct POCT urinalysis dipstick manually resulted Follow Up: Patient is to return in 4 weeks for routine OB appointment. Documented by Brittany Christensen LPN on behalf of: Don Hidalgo DO documented in this encounterOzarks Community [id number] History of Present illness Narrative* Stephanie Sotelo, RN HOME CARE - 05/24/2023 2:00 PM EST Hesham Avalos is a 22 y.o. female presents with chief complaint of Establish Care HPI: Patient presents today for RN HOME CARE appointment- to establish care with new provider. SUBJECTIVE: MEDICATIONS: Current Outpatient Medications Medication Instructions Ujoyeg-TkOxvf-Pfopw-FA-Kent 3 (Duet DHA 400) 25-1 & 400 [...] tenderness or frontal sinus tenderness. Mouth/Throat: Lips: [place]. Mouth: Mucous membranes are moist. Pharynx: Oropharynx [...] No follow-ups on file. documented in this encounterOzarks Community [id number] History of Present illness Narrative* Daphne Gerard RN - 04/12/2023 3:15 PM EST Headache/epigastric pain/blurry vision/swelling? NO Cramping/contractions? NO Abnormal vaginal discharge? NO Spotting or vaginal bleeding? NO Loss of fluid like your water may have broken? NO Recent ER visits or hospitalizations? NO Any concerns that you would like me to mention to the provider today? NO * Daniella Reina MD - 04/12/2023 3:15 PM EST REASON FOR OFFICE VISIT: Follow up placenta [...] or chest pain. She denies contractions, vaginal. Shereports good movement. GCT at 26wks 131 (reviewed [...] Drug Allergies CURRENT MEDICATIONS: Current Outpatient Medications: edt689-gdoc-zxcnv-xd1 (DUET DHA WITH OMEGA-3) 25 mg iron-1 mg -400 mg combo pack, Take by mouth., Disp: , Rfl: blood sugar diagnostic strip, Check blood sugar 4-5 times daily, fasting and 1 hour after meals. Use as directed. Dispense per insurance preference., Disp: 200 strip, Rfl: 6 blood-glucose meter misc, Check blood sugar 4-5 times daily, fasting and 1 hour after meals. Use asdirected. Dispense per insurance preference., Disp: 1 each, Rfl: 0 ferrous sulfate (HIGH POTENCY IRON) 27 mg iron tablet, Take by mouth. (Patient not taking: Reportedon 04/12/2023), Disp: , Rfl: lancets 31 gauge misc, 1 strip by miscellaneous route in the morning and 1 strip at noon and 1 strip in the evening and 1 strip before bedtime. Check blood sugar 4-5 times daily, fasting and 1 hour after meals. Use as directed. Dispense per insurance preference.., Disp: 100 each, Rfl: 1 vgv522-kkde-yjwft-re6 25 mg iron-1 mg -400 mg combo [...] that of any at this time. Attempted vaginaldelivery is reasonable. Polyhydramnios, mild, new finding Abdominal [...] circumference is measuring at 98th percentile, increasing suspicionfor underlying gestational diabetes. Following discussion regarding repeat [...] 15-30% of cases, and affected patients are signi ficantly more likely to undergo delivery. 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 Patient does have ultrasound and office visit scheduled with us. Thank you for allowing me to participate in the care of Hesham Hassan Bailey. If there any questions please do not hesitate to contact us. Daniella Reina MD Maternal- Medicine [facility] [address] 1st [place] [address] [facility], the CDC, and other organizations representing maternal and public health professionals recommend that , , and lactating people and those considering receive the COVID-19 vaccination. Vaccination is the best method to reduce maternal and complications of SARS-CoV-2 infection. This document was created with [employer] technology. Though I make every effort to review the dictation as it is transcribed, on occasion the spoken word can be misinterpreted by the technology leading to inappropriate words, phrases, or sentences. This note is addressed to the requesting provider as a consultation for clinical guidance. Specificmedical abbreviations are occasionally used and those are generally approved by the [place]?Board of?Obstetrics and?Gynecology?as well as?cSout s abbreviations. The above plan of care was based solely on the diagnoses for which a consultation was requested. ?More frequent testing may be indicated based on her other medical/obstetrical conditions. The management of other or medical conditions is beyond the scope of requested consultation and will c ontinue to be followed by the primary heavy truck driver or primary care provider. Note to patient: The Century Cures Act makes medical notes like these available to patients inthe interest of transparency. However, be advised this is a medical document. It is intended as peer to peer communication. It is written in medical language and may contain abbreviations or verbiagethat are unfamiliar. It may appear blunt or direct. Medical documents are intended to carry relevant information, facts as evident, and the clinical opinion of the practitioner. documented in this encounterTrumbull [facility] SystemEvaluation + Plan note No data available for this section [facility]* Diagnosis Encounter for wellness examination- Primary Anemia, unspecified type documented in this encounter [facility] HealthcareEvaluation note* Diagnosis 35 weeks gestation of - Primary Polyhydramnios affecting documented [facility]* Diagnosis 11 weeks gestation of First trimester state, incidental History of placental abnormality Vaginal discharge Leukorrhea, not specified as infective Urethral cyst Other specified disorders of urethra documented in this encounter [facility] HealthcareEvaluation note* Diagnosis Second trimester state, incidental 15 weeks gestation of Diabetes mellitus screening Screening for diabetes mellitus documented in this encounter [facility] HealthcareEvaluation note* Diagnosis Obesity affecting in second trimester, unspecified obesity type- Primary documented in this encounter [facility] System[facility] note* Diagnosis Polyhydramnios affecting - Primary Low-lying placenta Hemorrhage from placenta previa, unspecified as to episode of care Placenta previa in second trimester Velamentous insertion of umbilical cord in second trimester Vasa previa, single or unspecified fetus History of hemorrhage, currently in second trimester documented in this encounter [facility] System[facility] note* Diagnosis Second trimester state, incidental 19 weeks gestation of Screening, , for anatomic survey Encounter for anatomic survey documented in this encounter [facility] HealthcareEvaluation note* Diagnosis Second trimester ([facility]) state, incidental 23 weeks gestation of ([facility]) Diabetes mellitus screening Screening for diabetes mellitus documented in this encounter [facility] HealthcareEvaluation note* Diagnosis Second trimester ([facility]) state, incidental 27 weeks gestation of ([facility]) documented in this encounter [facility] HealthcareEvaluation note* Diagnosis Third trimester ([facility]CC) state, [...] section [facility] Summary Purpose Family History No Family [...] Advanced Directives Records Found Reason for Referral SpecialtyDiagnoses / ProceduresReferred By ContactReferred To Contact Daniella Reina MD [address] [place] [address] Referral IDStatusReasonStart DateExpiration DateVisits RequestedVisits [id number] IDStatusReasonStart DateExpiration DateVisits RequestedVisits [id number] Additional Source Comments INFORMATION SOURCE (unrecogn ized section and content) DATE CREATED AUTHOR 10/05/2018 [facility] DATE CREATED AUTHOR AUTHOR'S ORGANIZ ATION 04/13/2022 [facility] DATE CREATED AUTHOR AUTHOR'S ORGANIZ ATION 07/27/2024 [facility] DATE CREATED AUTHOR AUTHOR'S ORGANIZ ATION 09/24/2024 [facility] DATE CREATED AUTHOR AUTHOR'S ORGANIZ ATION 10/08/2024 [facility] DATE CREATED AUTHOR AUTHOR'S ORGANIZ ATION 10/29/2024 [facility] DATE CREATED AUTHOR AUTHOR'S ORGANIZ ATION 01/31/2025 [facility] EPIC Care Teams (unrecognized sec tion and content) Team MemberRelationshipSpecialtyStart DateEnd Date Taisha Pena MD [address] [place] [address] PCP - GeneralFamily Medicine05/03/23Team MemberRelationshipSpecialtyStart DateEnd Date Taisha Pena MD [address] [place] [address] PCP - GeneralFamily Medicine05/03/23Team MemberRelationshipSpecialtyStart DateEnd Date Taisha Pena MD [address] [place] [address] PCP - GeneralFamily Medicine05/03/23Team MemberRelationshipSpecialtyStart DateEnd Date Taisha Pena MD [address] [place] [address] PCP - GeneralFamily Medicine05/03/23Team MemberRelationshipSpecialtyStart DateEnd Date Taisha Pena MD [address] [place] [address] PCP - GeneralFamily Medicine05/03/23Team MemberRelationshipSpecialtyStart DateEnd Date Taisha Pnea MD [address] [place] [address] PCP - GeneralFamily Medicine05/03/23Team MemberRelationshipSpecialtyStart DateEnd Date Taisha Pena MD [address] [place] [address] PCP - GeneralFamily Medicine05/03/23Team MemberRelationshipSpecialtyStart DateEnd Date Taisha Pena MD [address] [place] [address] PCP - GeneralFamily Medicine05/03/23 Stephanie Sotelo NP [address] [place] [address] PCP - [employer]07/16/24Team MemberRelationshipSpecialtyStart DateEnd Date Taisha Pena MD [address] [place] [address] PCP - GeneralFamily Medicine05/03/23 Stephanie Sotelo NP [address] [place] [address] PCP - [employer]07/16/24am MemberRelationshipSpecialtyStart DateEn[facility] Taisha Pena MD [address] [place] [address] PCP - GeneralFamily Medicine05/03/23 Stephanie Sotelo NP [address] [place] [address] PCP - [employer]07/16/24Team MemberRelationshipSpecialtyStart DateEncompass Health Rehabilitation Hospital Taisha Pena MD [address] [place] [address] PCP - GeneralFamily Medicine05/03/23 Stephanie Sotelo NP [address] [place] [address] PCP - [employer]07/16/24Team MemberRelationshipSpecialtyStart [facility] Date Taisha Pena MD [address] [place] [address] PCP - GeneralFamily Medicine05/03/23 Stephanie Sotelo RN HOME CARE [address] [place] [address] PCP - [employer]07/16/24Team MemberRelationshipSpecialtyStart [facility] Date Taisha Pena MD [address] [place] [address] PCP - Generalmily Medicine05/03/23 Stephanie Sotelo NP [address] [place] [address] PCP - [facility]07/16/24Te MemberRelationshipSpecialtyStdennison DateEnd Date Taisha Pena MD [address] [place] [address] [facility]05/03/23 Stephanie Sotelo NP [address] [place] [address] [facility]07/16/24Te MemberRelationshipSpecialtyMineral Wells DateEnd Taisha Pena MD [address] [place] [address] [facility]05/03/23 Stephanie Sotelo NP [address] [place] [address] PCP [facility]07/16/24 Reason for Visit (unrecogniz ed section and content) ReasonCommentsEstablish CareReasonCommentsPOSTERIOR LOW LYING PLACENTAResolved PolyhydramniosReasonCommentsRoutine VisitReasonCommentsVasa Previa FOR RECORDS PERTAINING TO PATIENTS WHO [...] BE BASED ON THE PRIMARY CLINICAL RECORDS. [employer] [facility]. provides no warranty or guarantee of the accuracy or completeness of information in this document.
== END 2025-02-07 17:04 | disposition home or self-care (01) ==
LOC: FBCO 16:56
PROVIDERS: PCP Family Medicine; Visit Provider Obstetrics & Gynecology
DX: Z36.1 Encounter for antenatal screening for raised alphafetoprotein level (principal)